=== PATIENT | male | born 1970 | race Hispanic/Latino ===

== ENCOUNTER 2018-04-29 14:23 | Emergency (ER) | payer BC, SELFPAY ==
--- OUTSIDE RECORDS SUMMARY | 2018-04-29 14:25 | XMS REPORT | Clinical Summary ---
:1970 Author Organization [facility] Address [address] [place] [address] Care Team Providers Name Role Phone Asked, No Pcp Primary Care Provider Unavailable Allergies Not on File Current Medications Not on file Active Problems Not on file Social History Tobacco Use Types Packs/Day Years Used Date Never Assessed Sex Assigned at Date Recorded Not on file Last Filed Vital Signs Not on file Plan of Treatment Not on file Results Not on fileafter 04/28/2017 Insurance Payer Benefit Plan / Group Subscriber ID Type Phone Address BCBS BCBS CHOICE PPO/FEDERAL EMPL PPO xxxxxxxxxxxx PPO Home: Geetha hughes [phone] [address]
--- NOTE | 2018-04-29 15:39 | ER ---
Nurse's Notes [facility] Name: Adalid Chaves Jr Age: 47 yrs Sex: Male : 1970 Arrival Date: 04/29/2018 Time: 14:26 Bed 24 Private MD: Kavin Elmore Diagnosis: Right Lower Tooth Pain Presentation: 04/29 14:57 Presenting complaint: Patient states: "I think I cracked a tooth yesterday". Pt c/o aa5 right lower molar. Transition of care: patient was not received from another setting of care. Onset of symptoms was April 2018. Risk Assessment: Do you want to hurt yourself or someone else? Patient reports no desire to harm self or others. Initial Sepsis Screen: Does the patient meet any 2 criteria? No. Patient's initial sepsis screen is negative. Does the patient have a suspected source of infection? No. Patient's initial sepsis screen is negative. Care prior to arrival: None. 14:57 Method Of Arrival: Ambulatory aa5 14:57 Acuity: YENNY 5 aa5 Triage Assessment: 16:12 EENT: Reports pain since tooth pain. tl3 Historical: - Allergies: 14:59 No Known Allergies; aa5 - PMHx: 14:59 Diabetes - IDDM; Hypertension; aa5 - PSHx: 14:59 None; aa5 - Immunization history:: Flu vaccine is up to date. - Social history:: Smoking status: Patient/guardian denies using tobacco. - Ebola Screening: : No symptoms or risks identified at this time. Screenin:32 Abuse screen: Denies threats or abuse. Nutritional screening: No deficits noted. tl3 Tuberculosis screening: No symptoms or risk factors identified. Fall Risk None identified. Assessment: 15:32 General: Appears distressed, uncomfortable, well groomed, well developed, well tl3 nourished, Behavior is calm, cooperative, appropriate for age. Pain: Complains of pain in lower right third molar. Neuro: Level of Consciousness is awake, alert, obeys commands, Oriented to person, place, time, situation, Appropriate for age. Cardiovascular: Patient's skin is warm and dry. Respiratory: Airway is patent. GI: No signs and/or symptoms were reported involving the gastrointestinal system. : No signs and/or symptoms were reported regarding the genitourinary system. EENT: No signs and/or symptoms were reported regarding the EENT system. Derm: No signs and/or symptoms reported regarding the dermatologic system. Musculoskeletal: No signs and/or symptoms reported regarding the musculoskeletal system. 16:10 Reassessment: No changes from previously documented assessment. Patient and/or family tl3 updated on plan of care and expected duration. Pain level reassessed. Patient is alert, oriented x 3, equal unlabored respirations, skin warm/dry/pink. discussed Rx cost with pt and provided info on [facility] for best pricing, pt not satisfied with medications prescribed. Vital Signs: 14:59 BP 137 / 82; Pulse 73; Resp 18 S; Temp 98.0(TE); Pulse Ox 97% on R/A; Weight 156.49 kg aa5 (R); Height 6 ft. 4 in. (193.04 cm) (R); Pain 9/10; 14:59 Body Mass Index 41.99 (156.49 kg, 193.04 cm) aa5 ED Course: 14:26 Patient arrived in ED. mr 14:26 Kavin Elmore MD is Private Physician. mr 14:58 Triage completed. aa5 14:58 Arm band placed on. aa5 15:14 Abraham Chaves PA is PHCP. cp 15:14 Jaswant Garcia MD is Attending Physician. cp 15:30 Jessy Sparrow, DIANA is Primary Nurse. tl3 15:32 Patient has correct armband on for positive identification. tl3 15:32 No provider procedures requiring assistance completed. Patient did not have IV access tl3 during this emergency room visit. 15:36 Christofer Gerard DDS is Referral Physician. cp Administered Medications: No medications were administered Outcome: 15:38 Discharge ordered by MD. cp 16:10 Discharged to home ambulatory. tl3 16:10 Condition: unchanged 16:10 Discharge instructions given to patient, Instructed on discharge instructions, follow up and referral plans. medication usage, following up with dentist Demonstrated understanding of instructions, follow-up care, medications, Prescriptions given X 3. 16:12 Patient left the ED. tl3 Signatures: MaurerBrigida pereira mr EspinalSima RN RN aa5 Abraham Chaves PA PA cp Jessy Sparrow, DIANA RN tl3
--- NOTE | 2018-04-29 15:39 | EDPHYS ---
Physician Documentation [facility] Name: Adalid Chaves Jr Age: 47 yrs Sex: Male : 1970 Arrival Date: 04/29/2018 Time: 14:26 Bed 24 Private MD: Kavin Elmore ED Physician Jaswant Garcia HPI: 04/29 15:27 This 47 yrs old Male presents to ER via Ambulatory with complaints of cp Toothache. 15:27 The patient presents with pain. The problem is located in the right lower jaw. Onset: cp The symptoms/episode began/occurred yesterday. Duration: The symptoms are continuous, and are steadily getting worse. Associated signs and symptoms: Pertinent positives: pain, Pertinent negatives: anorexia, dysphagia, fever, inability to eat, swelling, facial. Severity of symptoms: in the emergency department the symptoms are actually worse. Historical: - Allergies: 14:59 No Known Allergies; aa5 - PMHx: 14:59 Diabetes - IDDM; Hypertension; aa5 - PSHx: 14:59 None; aa5 - Immunization history:: Flu vaccine is up to date. - Social history:: Smoking status: Patient/guardian denies using tobacco. - Ebola Screening: : No symptoms or risks identified at this time. ROS: 15:32 Eyes: Negative for injury, pain, redness, and discharge. cp 15:32 Constitutional: Negative for body aches, chills, fever, poor PO intake. 15:32 ENT: Positive for dental pain, right lower jaw pain, Negative for sinus pain, difficulty swallowing, difficulty handling secretions, hoarseness. 15:32 Cardiovascular: Negative for chest pain, edema, palpitations. 15:32 Respiratory: Negative for cough, shortness of breath, wheezing. 15:32 Skin: Negative for cellulitis, rash. 15:32 All other systems are negative. Exam: 15:34 Head/Face: Normocephalic, atraumatic. cp 15:34 Constitutional: The patient appears in no acute distress, alert, awake, non-toxic, well developed, well nourished. 15:34 Eyes: Periorbital structures: appear normal, Conjunctiva: normal, no exudate, no injection, Sclera: no appreciated abnormality, Lids and lashes: appear normal, bilaterally. 15:34 ENT: External ear(s): are unremarkable, Ear canal(s): are normal, clear, TM's: bulging, is not appreciated, bilaterally, dullness, bilaterally, erythema, is not appreciated, bilaterally, Nose: is normal, Mouth: Lips: moist, Oral mucosa: pink and intact, moist, Gums: normal with healthy appearance, Tongue: is normal, abscess, is not appreciated, drooling, is not appreciated, Posterior pharynx: Airway: no evidence of obstruction, patent, Tonsils: are normal in appearance, Uvula: midline, swelling, is not appreciated, erythema, is not appreciated, exudate, is not appreciated, Dental exam: abscess, is not appreciated, dental caries, that is mild, diffusely, gum swelling, not appreciated, pain, that is moderate, specifically in the lower right second molar (#31). 15:34 Neck: ROM/movement: is normal, is supple, without pain, no range of motions limitations, no meningismus, no nuchal rigidity, Lymph nodes: no appreciated lymphadenopathy. 15:34 Chest/axilla: Inspection: normal, Palpation: is normal, no crepitus, no tenderness. 15:34 Cardiovascular: Rate: normal, Rhythm: regular. 15:34 Respiratory: the patient does not display signs of respiratory distress, Respirations: normal, no use of accessory muscles, no retractions, Breath sounds: are clear throughout, no decreased breath sounds, no stridor, no wheezing. 15:34 Skin: cellulitis, is not appreciated, no rash present. cp Vital Signs: 14:59 BP 137 / 82; Pulse 73; Resp 18 S; Temp 98.0(TE); Pulse Ox 97% on R/A; Weight 156.49 kg aa5 (R); Height 6 ft. 4 in. (193.04 cm) (R); Pain 9/10; 14:59 Body Mass Index 41.99 (156.49 kg, 193.04 cm) aa5 MDM: 15:15 Patient medically screened. cp 15:30 Differential diagnosis: dental caries, dental abscess, pericoronitis. cp 15:37 Data reviewed: vital signs, nurses notes, and as a result, I will discharge patient. cp 15:37 Counseling: I had a detailed discussion with the patient and/or guardian regarding: the cp historical points, exam findings, and any diagnostic results supporting the discharge/admit diagnosis, the need for outpatient follow up, for definitive care, a dentist, to return to the emergency department if symptoms worsen or persist or if there are any questions or concerns that arise at home. Administered Medications: No medications were administered Disposition: 16:33 Co-signature as Attending Physician, Jaswant Garcia MD. Disposition: 04/29/18 15:38 Discharged to Home. Impression: Right Lower Tooth Pain. - Condition is Stable. - Discharge Instructions: Dental Pain. - Prescriptions for Amoxicillin 875 mg Oral Tablet - take 1 tablet by ORAL route every 12 hours for 10 days; 20 tablet. Anaprox DS 550 mg Oral Tablet - take 1 tablet by ORAL route every 12 hours As needed; 20 tablet. Tramadol 50 mg Oral Tablet - take 1 tablet by ORAL route every 8 hours as needed; 12 tablet. - Medication Reconciliation Form, Thank You Letter, Antibiotic Education, Prescription Opioid Use form. - Follow up: Christoefr Gerard DDS; When: 2 - 3 days; Reason: right lower tooth pain. - Problem is new. - Symptoms have improved. Signatures: Sima Espinal RN RN aa5 Abraham Chaves PA PA Jaswant Hackett MD MD Jessy Sparrow RN RN tl3 Corrections: (The following items were deleted from the chart) 16:12 15:38 04/29/2018 15:38 Discharged to Home. Impression: Right Lower Tooth Pain. tl3 Condition is Stable. Forms are Medication Reconciliation Form, Thank You Letter, Antibiotic Education, Prescription Opioid Use. Follow up: Christofer Gerard; When: 2 - 3 days; Reason: right lower tooth pain. Problem is new. Symptoms have improved. cp
== END 2018-04-29 16:12 | disposition home or self-care (01) ==
LOC: ER 14:23
DX: K08.89 Other specified disorders of teeth and supporting structures (principal); K02.9 Dental caries, unspecified; E11.9 Type 2 diabetes mellitus without complications; I10 Essential (primary) hypertension; Z79.4 Long term (current) use of insulin
CPT/HCPCS: 99282

== ENCOUNTER 2019-05-08 09:41 | Inpatient (IN) | payer OTHER ==
--- OUTSIDE RECORDS SUMMARY | 2019-05-08 09:43 | XMS REPORT | Summary of Care ---
:1970 Author Organization [facility] Address [address] [place] [id number] Care Team Providers Name Role Phone Kavin Elmore Primary Care Provider Joy Garza MD Unavailable Unavailable Reason for Visit Reason Comments Refill Request Encounter Details Date Type Department Care Team Description 01/14/2019 Refill [facility]- Joy Garza MD Refill Request [facility] [address] [place] [phone] Allergies No Known Allergiesdocumented as of this encounter (statuses as of 01/15/2019) Medications Medication Sig Dispensed Refills Start Date End Date Status aspirin 81 mg EC Take 81 mg by 0 Active tablet mouth daily. Lancets (MICROLET Use as 200 Each 5 02/24/2016 Active LANCET) Misc directed, six times daily, DX:E11.9 Insulin [place], Use once daily 100 Each 3 02/28/2017 Active Disposable, (BD with VIctoza INSULIN PEN NEEDLE UF) 31 gauge x 5/16" NdleIndications: Type 2 diabetes, uncontrolled, with neuropathy blood sugar Use as 300 Strip 3 08/15/2017 Active diagnostic directed, 3 (CONTOUR NEXT times daily, STRIPS) DX:E11.9 stripIndications: Type 2 diabetes, uncontrolled, with neuropathy DUEXIS 800-26.6 mg 3 01/27/2018 Active per tablet lidocaine-prilocai APPLY 2 TO 3 12 12/22/2017 Active ne 2.5-2.5 % cream GRAMS TO THE AFFECTED AREA EVERY 12 HOURS UREA 40 TOPICAL Apply to 0 Active area(s). VICTOZA 3-LILA 0.6 INJECT 1.8 MG 27 mL 0 03/24/2018 Active mg/0.1 mL (18 mg/3 UNDER THE SKIN mL) DAILY injectionIndicatio ns: Type 2 diabetes, uncontrolled, with neuropathy pregabalin Take 1 capsule 270 capsule 0 11/09/2018 Active (LYRICA) 75 mg by mouth 3 capsuleIndications (three) times : Neuropathy daily. lisinopril-hydroch Take 1 tablet 180 tablet 0 11/09/2018 Active lorothiazide by mouth 2 20-12.5 mg per (two) times tabletIndications: daily. Essential hypertension metoprolol Take 1 tablet 90 tablet 0 11/09/2018 Active tartrate 25 mg by mouth tabletIndications: daily. Essential hypertension simvastatin 20 mg Take 1 tablet 90 tablet 0 11/09/2018 Active tabletIndications: by mouth at Dyslipidemia bedtime. Insulin Use three 300 Syringe 1 11/09/2018 Active Syringe-Needle daily with U-100 (INSULIN U-500 insulin SYRINGE) 1 mL 30 vial gauge x 5/16 SyrgIndications: Type 2 diabetes, uncontrolled, with neuropathy pioglitazone 45 mg Take 1 tablet 90 tablet 0 11/09/2018 Active tabletIndications: by mouth Type 2 diabetes, daily. uncontrolled, with neuropathy insulin regular 20 units at 50 mL 5 11/15/2018 Active human (HUMULIN R) breakfast,15-2 500 unit/mL 0 units at injectionIndicatio lunch,10-15 ns: Type 2 units before diabetes, dinner, Max uncontrolled, with daily dose 55 neuropathy units METFORMIN 1,000 mg TAKE 1 TABLET 180 tablet 0 01/15/2019 Active tabletIndications: TWICE DAILY Type 2 diabetes, WITH MEALS uncontrolled, with neuropathy metFORMIN 1,000 mg Take 1 tablet 180 tablet 0 11/09/2018 Discontinued tabletIndications: by mouth 2 9 Type 2 diabetes, (two) times uncontrolled, with daily with neuropathy meals. 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 documented as of this encounter Last Filed Vital Signs Not on filedocumented in this encounter Plan of Treatment Date Type Specialty Care Team Description 02/28/2019 Office Visit Endocrinology Diabetes & Rodriguez, MD [facility] [address] [place] [address] [phone] Health Maintenance Due Date Last Done Comments PNEUMOCOCCAL 0-64 YEARS COMBINED 1975 SERIES (1 of 1 - PPSV23) CREATININE (SERUM) 1979 EYE EXAM 1979 LDL-C 1979 URINE MICROALBUMIN 1979 DTaP,Tdap,and Td Vaccines (1 - 1988 Tdap) INFLUENZA VACCINE 02/18/2019 HgA1C 05/11/2019 11/08/2018, 02/15/2018, 11/09/2017, Additional history exists FOOT EXAM 11/09/2019 11/08/2018, 11/08/2018, 02/15/2018, Additional history exists documented as of this encounter Results Not on filedocumented in this encounter Visit Diagnoses Diagnosis Type 2 diabetes, uncontrolled, with neuropathy Type II or unspecified type diabetes mellitus with neurological manifestations, uncontrolled documented in this encounter Insurance Payer Benefit Plan / Subscriber ID Effective Dates Phone Address Type Group [facility] [id number] 2018-Prese HMO/PPO/[facility] PPO nt S documented as of this encounter
--- OUTSIDE RECORDS SUMMARY | 2019-05-08 09:43 | XMS REPORT ---
:1970 Author Organization [facility] Address [address] [place] [address] Dr. Serrano [address] [place] [address] Care Team Providers Name Role Phone Unavailable Unavailable Unavailable Problems This patient has no known problems. Allergies, Adverse Reactions, Alerts This patient has no known allergies or adverse reactions. Medications This patient has no known medications.
--- OUTSIDE RECORDS SUMMARY | 2019-05-08 09:44 | XMS REPORT | Summary of Care ---
:1970 Author Organization [facility] Address [address] [place] [address] Care Team Providers Name Role Phone Kavin Elmore Primary Care Provider Joy Garza MD Unavailable Unavailable Reason for Visit Reason Comments Follow-up Diabetes Mellitus II Encounter Details Date Type Department Care Team Description 02/28/2019 Office Visit [facility] Jonah Rodriguez MD Type 2 diabetes, uncontrolled, with neuropathy (Primary Dx); Endocrinology- [facility] Essential hypertension; [facility] Dyslipidemia; Professional Office [place], [place] Neuropathy Building [address] [place] [address] [address] [place] [address] Allergies No Known Allergiesdocumented as of this encounter (statuses as of 02/28/2019) Medications Medication Sig Dispensed Refills Start Date End Date Status aspirin 81 mg EC Take 81 mg by 0 Active tablet mouth daily. Lancets (MICROLET Use as 200 Each 5 02/24/2016 Active LANCET) Misc directed, six times daily, DX:E11.9 Insulin [place], Use once daily 100 Each 3 02/28/2017 [...] 3 capsuleIndications (three) times : Neuropathy daily. simvastatin 20 mg Take 1 tablet 90 tablet 0 11/09/2018 Active tabletIndications: by mouth at Dyslipidemia bedtime. pioglitazone 45 mg Take 1 tablet 90 tablet 0 11/09/2018 Active tabletIndications: by mouth Type 2 diabetes, daily. uncontrolled, with neuropathy insulin regular 20 units at 50 mL 5 11/15/2018 Active human (HUMULIN R) breakfast,15-2 500 unit/mL 0 units at injectionIndicatio lunch,10-15 ns: Type 2 units before diabetes, dinner, Max uncontrolled, with daily dose 55 neuropathy units metFORMIN 1,000 mg TAKE 1 TABLET 180 tablet 1 02/28/2019 Active tabletIndications: TWICE DAILY Type 2 diabetes, WITH MEALS uncontrolled, with neuropathy metoprolol Take 1 tablet 90 tablet 1 02/28/2019 Active tartrate 25 mg by mouth tabletIndications: daily. Essential hypertension lisinopril-hydroch Take 1 tablet 180 tablet 1 02/28/2019 Active lorothiazide by mouth 2 20-12.5 mg per (two) times tabletIndications: daily. Essential hypertension insulin U-500 1 Each 3 300 Syringe 1 02/28/2019 Active syringe-needle 1/2 (three) times mL 31 gauge x daily before 15/64" meals. SyrgIndications: Type 2 diabetes, uncontrolled, with neuropathy lisinopril-hydroch Take 1 tablet 180 tablet 0 11/09/2018 Discontinued lorothiazide by mouth 2 9 20-12.5 mg per (two) times tabletIndications: daily. Essential hypertension metoprolol Take 1 tablet 90 tablet 0 11/09/2018 Discontinued tartrate 25 mg by mouth 9 tabletIndications: daily. Essential hypertension Insulin Use three 300 Syringe 1 11/09/2018 Discontinued Syringe-Needle daily with 9 U-100 (INSULIN U-500 insulin SYRINGE) 1 mL 30 vial gauge x 11/02 SyrgIndications: Type 2 diabetes, uncontrolled, with neuropathy METFORMIN 1,000 mg TAKE 1 TABLET 180 tablet 0 01/15/2019 Discontinued tabletIndications: TWICE DAILY 9 Type 2 diabetes, WITH MEALS uncontrolled, with neuropathy documented as of this encounter (statuses as of 02/28/2019) Active Problems Problem Noted Date Morbid obesity, unspecified obesity type 11/22/2016 Cushingoid facies 09/16/2016 Dyslipidemia 05/25/2016 Neuropathy 05/25/2016 Type 2 diabetes, uncontrolled, with neuropathy 02/24/2016 Essential hypertension 02/24/2016 HLD (hyperlipidemia) 02/24/2016 documented as of this encounter (statuses as of 02/28/2019) Social History Tobacco Use Types Packs/Day Years [...] of this encounter Last Filed Vital Signs Vital Sign Reading Time Taken Comments Blood Pressure 122/77 02/28/2019 4:48 PM CDT Pulse 85 02/28/2019 4:48 PM CDT Temperature - - Respiratory Rate 16 02/28/2019 4:48 PM CDT Oxygen Saturation - - Inhaled Oxygen Concentration - - Weight 165.2 kg (364 lb 3.2 oz) 02/28/2019 4:48 PM CDT Height 193 cm (6' 4") 02/28/2019 4:48 PM CDT Body Mass Index 44.33 02/28/2019 4:48 PM CDT documented in this encounter Patient Instructions Patient InstructionsJonah Rodriguez MD - 02/28/2019 4:30 PM CDTChange U500 injection with U500 syringe Take 100-120 units with breakfast , 40-60 with lunch and 80-100 units with dinner Continue metformin and victoza and actos documented in this encounter Progress Notes Jonah Rodriguez MD - 02/28/2019 4:30 PM CDT chief complaint: Type 2 diabetes mellitus, HTN, dyslipidemia, obesity- follow up HPI Patient is a 48 year old /White male who is here today for Diabetes Mellitus Type 2. Patient's diabetes is complicated by atherogenic diet, diabetic ulcer/wound, hyperlipidemia, hypertension , neuropathy: Peripheral and lower extremity, obesity and retinopathy: proliferative. Diagnosed at age 25 years and A1C has been not well controlled at 7-9 range. SIOMARA was in 10/2018 with A1C worsened from 7.5 to 8.7 ( Patient lost his job and was off medications for about a month, restarted some of the medicines recently) . He was advised to hold off Jardiance and increase Actos dose due to new issue with foot ulcer Patient reports glucose has been trending higher despite he has to increase U500 to 10-25 units TIDAC ( using regular syringe ). He checks glucose 1-2 times a day. 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 Exercise: active but does not exercise Regained 20lbs after stopping Jardiance Morbid obesity: Weight > 300 Lb since age 17 1 mg DST normal, IGF-1 normal Current medications:Stopped Phentermine 37.5 mg and Topiramate 25 mg due to cost HTN: Managed by cardiology, Dr Colon.Takes Toprol 25 mg bid and Lisinopril-HCTZ 20-12.5 mg BID ( requesting refills) Dyslipidemia: Takes Zocor 20 mg Neuropathy, Gabapentin and duloxetine are inaffective in relieving symptoms. Lyrica 75 mg tid is affective. DIABETIC HEALTH MAINTENANCE Last Ophthalmology visit was 11/2017, + severe retinopathy bilateral. Patient on YANCI/ARB therapy - Yes Patient on ASA therapy - Yes. Patient on Statin/Fibrate therapy - Yes. Patient instructed about daily feet exams, last sensation exam was 02/28/2019 Patient has received Nutrition/Diet/Diabetes Education on 02/2016. HISTORY Past Medical History: Diagnosis Date DM2 (diabetes mellitus, type 2) HLD (hyperlipidemia) HTN (hypertension) Neuropathy Past Surgical History: Procedure Laterality Date MS ANESTH,KNEE AREA SURGERY Family History Problem Relation Age of Onset Diabetes Mother Diabetes Father Social History Socioeconomic History Marital status: Spouse name: Not on file Number of children: Not on file Years of education: Not on file Highest education level: Not on file Occupational History Not on file Social Needs Financial resource strain: Not on file Food insecurity: Worry: Not on file Inability: Not on file Transportation needs: Medical: Not on file Non-medical: Not on file Tobacco Use Smoking status: Never Smoker Substance and Sexual Activity Alcohol use: Not on file Drug use: Not on file Sexual activity: Not on file Lifestyle Physical activity: Days per week: Not on file Minutes per session: Not on file Stress: Not on file Relationships Social connections: Talks on phone: Not on file Gets together: Not on file Attends methodist service: Not on file Active member of club or organization: Not on file Attends meetings of clubs or organizations: Not on file Relationship status: Not on file Intimate partner violence: Fear of current or ex partner: Not on file Emotionally abused: Not on file Physically abused: Not on file Forced sexual activity: Not on file Other Topics Concern Not on file Social History Narrative Not on file REVIEW OF SYSTEMS Constitutional: +weight gain, denies fatigue and hair loss Eyes: denies blurry vision, denies diplopia and denies pain. Neck: denies pain, denies swollen glands Cardiovascular: denies chest pain , denies irregular pulse and denies palpitations. Respiratory: denies dyspnea on exertion and denies shortness of breath. Gastrointestinal: denies abdominal pain, denies constipation and denies diarrhea. Genitourinary: denies burning and denies dysuria. Musculoskeletal: denies back pain, denies muscle pain and denies weakness. Skin: +cellulitis on left great toe Neuro: denies numbness , denies tingling and denies tremor. Psych: negative. Endocrine: denies goiter, denies hair loss, denies intolerance to cold, denies intolerance to heat, denies polydipsia, denies polyphagia and denies polyuria. PHYSICAL EXAM POCT HBA1C (%) Date Value 02/28/2019 8.1 11/08/2018 8.7 (A) BP 122/77 (BP Location: Left arm, Patient Position: Sitting, BP CUFF SIZE: Adult Large) | Pulse 85| Resp 16 | Ht 6' 4" (1.93 m) | Wt 364 lb 3.2 oz ( 165.2 kg) | BMI 44.33 kg/m . General: alert, oriented times three, no apparent distress, appearing age appropriate. Skin: + cushingoid features, Boaz torso Head: normocephalic, no masses, lesions, tenderness or abnormalities. Eyes: anicteric sclera, pupils are equally round and reactive to light. Neck: +acanthosis nigricans Thyroid: normal size and consistency to palaption Lungs: good diaphragmatic excursion, lungs clear to auscultation bilaterally. Heart: regular rate and rhythm, no murmurs, gallops or rubs. Abdomen: abdomen soft, non-tender, normal active bowel sounds, + obese. Neuro: unremarkable without focal findings. Extremities/Musculoskeletal: no cyanosis, no edema . . Feet: cellulitis on left big toe Sensory exam of the foot is abnormal. Monofilament exam with sensation Right: 4/ 5, Left: 4/5. Mycotic toenail Lesions present Ulcers Present Left Foot Peripheral pulses present 2+. Patient states lab was done in 09/2018 in outside facility. He will fax records ASSESSMENT Type 2 diabetes, uncontrolled, with neuropathy (primary encounter diagnosis) Comment: Patient just restarted Metformin, Victoza and Actos Discussed recent reports of increased amputation with S Plan: 1. Type 2 diabetes, uncontrolled, with neuropathy -A1C (target=6-7%): 8.7 (11/05)-->8.199/19) improved from previous -glucose range:huge fluctuation -frequent Hypoglycemia in early AM -complication: neuropathy retinopathy -medication limitation: GLT2 Inhibitors as patient with active/hx toe infections ( healing) -diet: semicompliant -exercise: limited by foot pain Plan -reinterated to check glucose TID alternating fasting and 2 hours post meals -urged compliance with diet/exercise - POCT HEMOGLOBIN A1C TEST - metFORMIN 1,000 mg tablet; TAKE 1 TABLET TWICE DAILY WITH MEALS Dispense: 180 tablet; Refill: 1 - insulin U-500 syringe-needle 1/2 mL 31 gauge x 15/64" Syrg; 1 Each 3 (three) times daily before meals. Dispense: 300 Syringe; Refill: 1 Patient Instructions Change U500 injection with U500 syringe Take 100-120 units with breakfast , 40-60 with lunch and 80-100 units with dinner Continue metformin and victoza and actos 2. Essential hypertension BP was mildly elevate din clinic Plan - metoprolol tartrate 25 mg tablet; Take 1 tablet by mouth daily. Dispense: 90 tablet; Refill: 1 - lisinopril-hydrochlorothiazide 20-12.5 mg per tablet; Take 1 tablet by mouth 2 (two) times daily.Dispense: 180 tablet; Refill: 1 3. Dyslipidemia Comment: at goal in 09/2018 per patient Plan: simvastatin 20 mg tablet 4. Neuropathy Comment: Controlled Plan: pregabalin (LYRICA) 75 mg capsule documented in this encounter Plan of Treatment Health Maintenance Due Date Last Done Comments PNEUMOCOCCAL 0-64 YEARS COMBINED 1975 SERIES (1 of - PPSV23) CREATININE (SERUM) 1979 EYE EXAM 1979 LDL-C 1979 URINE MICROALBUMIN 1979 DTaP,Tdap,and Td Vaccines (1 - 1988 Tdap) INFLUENZA VACCINE (#1) 2019 HgA1C 05/11/2019 11/08/2018, 02/15/2018, 11/09/2017, Additional history exists FOOT EXAM 11/09/2019 11/08/2018, 11/08/2018, 02/15/2018, Additional history exists documented as of this encounter Procedures Procedure Name Priority Date/Time Associated Diagnosis Comments POCT HEMOGLOBIN A1C Routine 02/28/2019 Type 2 diabetes, Results for this TEST uncontrolled, with procedure are in the neuropathy results section. documented in this encounter Results POCT HEMOGLOBIN A1C TEST (02/28/2019) POCT HBA1C 8.1 4 - 6 % Specimen Blood - CAPILLARY documented in this encounter Visit Diagnoses Diagnosis Type 2 diabetes, uncontrolled, with neuropathy - Primary Type II or unspecified type diabetes mellitus with neurological manifestations, uncontrolled Essential hypertension Unspecified essential hypertension Dyslipidemia Other and unspecified hyperlipidemia Neuropathy Mononeuritis of unspecified site documented in this encounter Insurance Payer Benefit Plan / Subscriber ID Effective Dates Phone Address Type Group [facility] [id number] 2018-[place] HMO/PPO/[facility] PPO nt S documented as of this encounter
--- OUTSIDE RECORDS SUMMARY | 2019-05-08 09:44 | XMS REPORT | Summary of Care ---
:1970 Author Organization [facility] Address [address] [place] [address] Care Team Providers Name Role Phone Kavin Elmore Primary Care Provider Joy Garza MD Unavailable Unavailable Reason for Visit Reason Comments Refill Request Encounter Details Date Type Department Care Team Description 01/15/[address] [facility] Endocrinology- Jonah Rodriguez MD Refill Request [address] Professional Office [address] [phone] [place] [address] [address] [place] [address] Allergies No Known Allergiesdocumented as of this encounter (statuses as of 01/15/2019) Medications Medication Sig Dispensed Refills Start Date End Date Status aspirin 81 mg EC Take 81 mg by 0 Active tablet mouth daily. Lancets (MICROLET Use as directed, 200 Each 5 02/24/2016 Active LANCET) Misc six times daily, DX:E11.9 Insulin [place], Use once daily 100 Each 3 02/28/2017 Active Disposable, (BD with VIctoza INSULIN PEN NEEDLE UF) 31 gauge x 5/16" NdleIndications: Type 2 diabetes, uncontrolled, with neuropathy blood sugar Use as directed, 300 Strip 3 08/15/2017 Active diagnostic (CONTOUR 3 times daily, NEXT STRIPS) DX:E11.9 stripIndications: Type 2 diabetes, uncontrolled, with neuropathy DUEXIS 800-26.6 mg 3 01/27/2018 Active per tablet lidocaine-prilocaine APPLY 2 TO 3 12 12/22/2017 Active 2.5-2.5 % cream GRAMS TO THE AFFECTED AREA EVERY 12 HOURS UREA 40 TOPICAL Apply to 0 Active area(s). VICTOZA 3-LILA 0.6 INJECT 1.8 MG 27 mL 0 03/24/2018 Active mg/0.1 mL (18 mg/3 UNDER THE SKIN mL) DAILY injectionIndications: Type 2 diabetes, uncontrolled, with neuropathy pregabalin (LYRICA) Take 1 capsule by 270 capsule 0 11/09/2018 Active 75 mg mouth 3 (three) capsuleIndications: times daily. Neuropathy lisinopril-hydrochlor Take 1 tablet by 180 tablet 0 11/09/2018 Active othiazide 20-12.5 mg mouth 2 (two) per times daily. tabletIndications: Essential hypertension metoprolol tartrate Take 1 tablet by 90 tablet 0 11/09/2018 Active 25 mg mouth daily. tabletIndications: Essential hypertension simvastatin 20 mg Take 1 tablet by 90 tablet 0 11/09/2018 Active tabletIndications: mouth at bedtime. Dyslipidemia Insulin Use three daily 300 Syringe 1 11/09/2018 Active Syringe-Needle U-100 with U-500 (INSULIN SYRINGE) 1 insulin vial mL 30 gauge x 11/02 SyrgIndications: Type 2 diabetes, uncontrolled, with neuropathy pioglitazone 45 mg Take 1 tablet by 90 tablet 0 11/09/2018 Active tabletIndications: mouth daily. Type 2 diabetes, uncontrolled, with neuropathy insulin regular human 20 units at 50 mL 5 11/15/2018 Active (HUMULIN R) 500 breakfast,15-20 unit/mL units at injectionIndications: lunch,10-15 units Type 2 diabetes, before dinner, uncontrolled, with Max daily dose 55 neuropathy units METFORMIN 1,000 mg TAKE 1 TABLET 180 tablet 0 01/15/2019 Active tabletIndications: TWICE DAILY WITH Type 2 diabetes, MEALS uncontrolled, with neuropathy documented as of [...] Description 02/28/2019 Office Visit Endocrinology Diabetes & RodriguezJonah MD Metabolism [address] [place], [place] [address] Health Maintenance Due Date Last Done Comments [...] Results Not on filedocumented in this encounter Insurance Payer Benefit Plan / Subscriber ID Effective Dates Phone Address Type Group [facility] [id number] 2018-Prese HMO/PPO/[facility] PPO nt S documented as of this encounter
--- OUTSIDE RECORDS SUMMARY | 2019-05-08 09:44 | XMS REPORT | Summary of Care ---
:1970 Author Organization [facility] Address [address] [place] [address] Care Team Providers Name Role Phone Kavin Elmore Primary Care Provider Joy Garza MD Unavailable Unavailable Encounter Details Date Type Department Care Team Description 02/28/2019 Orders Only [facility] Doctor Unassigned, No [address] [facility] Name [place] [id number] [address] [place] [id number] Allergies No Known Allergiesdocumented as of this encounter (statuses as of 02/28/2019) Medications Medication Sig Dispensed Refills Start Date End Date Status aspirin 81 mg EC Take 81 mg by 0 Active tablet mouth daily. Lancets (MICROLET Use as directed, 200 Each 5 02/24/2016 Active LANCET) Misc six times daily, DX:E11.9 Insulin [place], Use once daily 100 Each 3 02/28/2017 [...] 1 insulin vial mL 30 gauge x 5/16 SyrgIndications: Type 2 diabetes, [...] Endocrinology Diabetes & RodriguezJonah MD Metabolism [address] [place] [address] [phone] Health Maintenance Due Date Last Done Comments [...] Procedure Name Priority Date/Time Associated Diagnosis Comments NO SHOW OR MISSED Routine 02/28/2019 4:18 PM APPOINTMENT POLICY CDT ACKNOWLEDGEMENT documented in this encounter Results Not on filedocumented in this encounter Insurance Payer Benefit Plan / Subscriber ID Effective Dates Phone Address Type Group [facility] [id number] 2018-Prese HMO/PPO/[facility] PPO nt S documented as of this encounter
[2019-05-08] MEDS ORDERED: ONDANSETRON 4 MG/2 ML VIAL IV PRN (10:01)
[2019-05-08] MEDS ORDERED: ACETAMINOPHEN 500 MG TAB PO PRN (10:01)
--- NOTE | 2019-05-08 10:08 | P.HP ---
Certification for Inpatient Patient admitted to: Inpatient With expected LOS: >2 Midnights Patient will require the following post-hospital care: None Practitioner: I am a practitioner with admitting privileges, knowledge of patient current condition, hospital course, and medical plan of care. Services: Services provided to patient in accordance with Admission requirements found in Title 42 Section 412.3 of the Code of Federal Regulations Patient History Date of Service: 05/08/19 Reason for admission: Left big toe cellulitis History of Present Illness: 48-year-old male with past medical history of diabetes mellitus, hypertension, diabetic neuropathy, GERD sent from Dr Edwards`s office where he presented with swelling , pain of left big toe and fever for the last few days. Started few days back and has been progressively worsening hence was presented to Dr Edwards . He was assessed and was admitted for further management in view of possible osteomyelitis, patient has subjective fevers with associated chills. Denies any chest pain or shortness of breath No fever no chills Pain in the left big toe present Allergies bee venom protein (honey bee) Allergy (Verified 05/08/19 10:12) Anaphylaxis Home medications list reviewed: Yes Home Medications: Amox/Clavulanate [Augmentin 400 mg Tab*] 11/08/18 Insulin Regular, Human [Humulin R U-500 Kwikpen] 10 units SQ TID 11/08/18 Liraglutide [Victoza 2-Lopez] 1.8 unit SQ DAILY 11/08/18 Lisinopril/Hydrochlorothiazide [Lisinopril-Hctz 20-12.5 mg Tab] 25 mg PO BID Metformin ER [Glucophage ER*] 1,000 mg PO BID 11/08/18 Metoprolol Tartrate [Lopressor] 1 tab PO DAILY 11/08/18 Pregabalin [Lyrica*] 75 mg PO BID 11/08/18 Simvastatin 20 mg PO DAILY 11/08/18 - Past Medical/Surgical History Has patient received pneumonia vaccine in the past: Yes Diabetic: Yes Past Medical History: Reviewed- Non-Contributory -: diabetes -: htn -: hyperlipidemia Past Surgical History: Reviewed- Non-Contributory -: L knee surgery -: bilateral toe bunion removal - Family History Family History: Reviewed- Non-Contributory - Social History Smoking Status: Never smoker Alcohol use: Yes Review of Systems 10-point ROS is otherwise unremarkable General: Unremarkable ENT: Unremarkable Respiratory: Unremarkable Cardiovascular: Unremarkable Gastrointestinal: Unremarkable Physical Examination - Vital Signs Temperature: 99.6 F Blood Pressure: 146/88 Pulse: 86 Respirations: 18 - Physical Exam General: Alert, Oriented x3, Obese HEENT: Atraumatic, Normocephalic Neck: Supple, 2+ carotid pulse no bruit Respiratory: Clear to auscultation bilaterally, Normal air movement Cardiovascular: Normal pulses, Regular rate/rhythm Capillary refill: <2 Seconds Gastrointestinal: Soft and benign, Non-distended, W/out hepatosplenomegaly Musculoskeletal: No clubbing, Swelling, Erythema, Tenderness, Other (Tenderness and swelling left big toe) Integumentary: Tenderness/swelling, Erythema Neurological: Normal speech, Normal strength at 5/5 x4 extr Lymphatics: No axilla or inguinal lymphadenopathy Urinary: Other (No bladder distention) External genitalia: Deferred Rectal: Deferred Assessment and Plan - Problems (Diagnosis) (1) Ulcer of left great toe due to diabetes mellitus Current Visit: No Status: Acute Plan: Monitor under telemetry Start on IV antibiotics Pain medications Blood and wound cultures Surgery consult Will get an MRI of the foot about osteomyelitis Will get a CRP (2) Diabetes Current Visit: No Status: Acute Plan: Continue home medications and titrate as needed Start on insulin sliding scale Will get an A1c (3) Hyperlipidemia Current Visit: No Status: Chronic Plan: Continue home medications and titrate as needed (4) Hypertension Current Visit: No Status: Chronic Plan: Continue home medications and titrate as needed Hydralazine p.r.n. (5) Morbid obesity with BMI of 40.0-44.9, adult Current Visit: No Status: Chronic Plan: Advised lifestyle modification (6) Neuropathy Current Visit: No Status: Chronic Plan: Continue home medications and titrate as needed Discharge Plan: Home Plan to discharge in: 48 Hours - Advance Directives Does patient have a Living Will: No Does patient have a Durable POA for Healthcare: No Time Spent Managing Pts Care (In Minutes): 48
[2019-05-08 10:13] VITALS: BMI 43.0
[2019-05-08 10:30] LABS: Absolute Lymphocytes (CBC) 1.8 K/uL (0.7-4.9); Basophils % 0.6 % (0-1.3); Hematocrit 33.6 % (39.6-49.0); Lymphocytes % 24.8 % (15.3-44.8); MPV 7.9 fL (7.6-11.3); RBC Red Blood Cell Count 4.02 M/uL (4.33-5.43)
[2019-05-08 10:34] LABS: Protime INR 1.08
[2019-05-08 10:50] LABS: ALT/SGPT 32 U/L (12-78); AST/SGOT 27 U/L (15-37); Albumin 2.9 g/dL (3.4-5.0); Alkaline Phosphatase 81 U/L (45-117); BUN Blood Urea Nitrogen 19 mg/dL (7-18); Bicarbonate 30 mmol/L (21-32); Bilirubin Total 0.4 mg/dL (0.2-1.0); Glucose Level 165 mg/dL (74-106); Phosphorus 2.4 mg/dL (2.5-4.9); Potassium 4.3 mmol/L (3.5-5.1); Protein, Total 7.1 g/dL (6.4-8.2); Sodium Level 139 mmol/L (136-145)
[2019-05-08] MEDS: POTASS/SODIUM PHOSPHATE 1 PKT POWD.PACK PO SCH ×3 (11:00→13:00)
[2019-05-08] MEDS: VANCOMYCIN 2 GM in NA CHLORIDE 0.9% 500 ML IVPB SCH ×2 (11:00→23:03)
[2019-05-08] MEDS: NA CHLORIDE 0.9% 1,000 ML IV SCH ×2 (11:00→21:00)
[2019-05-08] MEDS: CEFEPIME/SWI 1gm 10 ML IV SCH ×2 (11:47→21:34)
[2019-05-08 11:57] LABS: Urine Appearance CLEAR; Urine Blood NEGATIVE (NEG); Urine Color YELLOW; Urine Glucose NEGATIVE (NEG); Urine Specific Gravity 1.025 (1.005-1.030)
[2019-05-08 11:58] LABS: Urine Bacteria 20-50 /HPF (NONE SEEN); Urine Culture Reflex Order REFLEXED; Urine Mucus HEAVY /HPF (NONE SEEN); Urine Protein 3+ (NEG); Urine RBC <5 /HPF (NONE SEEN); Urine Urobilinogen 0.2 mg/dL (0.2-1.0)
[2019-05-08] MEDS: INSULIN -REGULAR HUMAN 50 UNIT/0.5 ML ML SQ SCH ×6 (11:58→21:36)
[2019-05-08 13:00] LABS: Urine Bilirubin 3+/R (NEG)
--- NOTE | 2019-05-08 14:06 | RAD REPORT ---
EXAM DESCRIPTION: US - Lower Extremity Artery [facility] - 05/08/2019 1:46 pm CLINICAL HISTORY: left foot cellulitis,r/o osteo COMPARISON: No comparisons FINDINGS: Left lower extremity arterial Doppler was performed. Triphasic waveforms are seen througho ut the left lower extremity arterial system. No evidence of significant stenosis or occlusion. IMPRESSION: No flow abnormality of the left lower extremity arterial system seen.
[2019-05-08] MEDS ORDERED: GLUCAGON 1 MG/VIAL IM PRN (15:45)
[2019-05-08] MEDS ORDERED: D50W 25 GM/50 ML SYRINGE/VIAL IV PRN (15:45)
[2019-05-08] MEDS ORDERED: SILVER SULFADIAZINE 1% 25 GM TOP SCH (16:00)
--- NOTE | 2019-05-08 16:20 | CON ---
Date of Consultation: 05/08/2019 Reason For Consultation: Infected wound, left great toe. History Of Present Illness: The patient is a 48-year-old gentleman with multiple medical problems, p resented to my office with fever, increasing pain, redness and swelling in the left great toe. I hav e been managing an ulcer on the bottom of the toe and he had called the office last week stating that he thought it was getting infected. I restarted him on Augmentin and told him to come see me ____ he was evaluated and he states that over the last 4 days, he has had increasing fever subjective ly and no purulent discharge. Feeling a little weak. Sugar has been a little high. I evaluated him in my office, debrided the wound edges. There was no purulence present. There was an ulcer present on the plantar aspect of the left great toe. It was red, it was warm, therefore as he failed outpat ient therapy on oral antibiotics, advised him to be admitted to the hospitalist and he was started on antibiotics and I have been consulted and workup was begun. Review of Systems: Otherwise unremarkable. No sore throat, runny nose, cough, headaches, or dizziness. No chest pain. Past Medical History: Significant for diabetes, hypertension, hyperlipidemia. Past Surgical History: Left knee surgery. Bilateral toe bunion removal. Allergies: BEE VENOM. Social History: Patient does not smoke. Drinks occasionally. Family History: Noncontributory. Physical Examination: Vital Signs: Stable. Blood pressure is 146/88, his temperature is 99.6. General: He is awake, alert, and oriented x3. Head and Neck: Cranial nerves 2 through 12 are grossly within normal limits. No neck masses. No JV D. Throat clear. Neck is supple. Chest: Clear. Heart: S1, S2. Abdomen: Soft. Extremities: Diminished dorsalis pedis and posterior tibial pulses. Left great toe is red, swollen, warm, indurated. No fluctuance anywhere. There is ulcer of approximately 2 cm on the plantar aspec t of the distal phalanx with good granulation tissue. Laboratory Data: White count is 7.1, H and H 11.3 and 33.6. Chemistry reviewed; BUN is 19, creatini ne is . Lactic acid is 1.3. Glucose is 165. MRI of the left great toe and arterial Doppl ers are pending. Assessment: A 48-year-old gentleman with multiple medical problems with left toe infected wound with cellulitis, rule out osteomyelitis. He has peripheral vascular disease and diabetes. Recommendation: We will await the results of the MRI and arterial Doppler and make further recommend ations. At this time, patient needs to be on IV antibiotics. He is on vancomycin and cefepime, whic h should be adequate. There is nothing really to culture at this point. We will see how he responds to these antibiotics and make further recommendations. We will follow this patient while in the [facility]. He can follow up with me in the wound healing center upon discharge. ORAL/MODL Voice ID: [id number] Report ID: [id number]
[2019-05-08] MEDS ORDERED: INSULIN REGULAR HUMAN 10 UNIT SQ SCH (16:30)
[2019-05-08] MEDS: HEPARIN 5000 UNIT/ML 1 ML VIAL SQ SCH (16:57)
[2019-05-08] MEDS: lisinopriL 20 MG TAB PO SCH (16:57)
[2019-05-08] MEDS: METOPROLOL TAR 25 MG TAB PO SCH (16:58)
[2019-05-08] MEDS ORDERED: HOME MED 1 EA UNK (Lisinopril/Hydrochlorothiazide [Lisinopril-Hctz 20-12.5 Mg Tab] 1 TAB) PO SCH (21:00)
[2019-05-08] MEDS ORDERED: HOME MED 1 EA UNK (Simvastatin [Simvastatin] 20 MG) PO SCH (21:00)
[2019-05-08] MEDS ORDERED: VANCOMYCIN 1.25 GM in NA CHLORIDE 0.9% 250 ML IVPB SCH (21:00)
[2019-05-08] MEDS ORDERED: CEFEPIME 1 GM/VIAL IV SCH (21:00)
[2019-05-08] MEDS: ATORVASTATIN 10 MG TAB PO SCH (21:34)
[2019-05-08] MEDS: PREGABALIN 75 MG CAP PO SCH (21:35)
[2019-05-08] MEDS: MORPHINE 2 MG/ML SYR IV PRN (21:36)
[2019-05-08] MEDS: HYDROCODONE/APAP 10/325 TAB PO PRN (23:12)
[2019-05-09] MEDS: HEPARIN 5000 UNIT/ML 1 ML VIAL SQ SCH ×3 (01:31→17:14)
[2019-05-09] MEDS: MORPHINE 2 MG/ML SYR IV PRN (01:43)
[2019-05-09 04:43] LABS: Basophils % 0.6 % (0-1.3); Hematocrit 32.6 % (39.6-49.0); Lymphocytes % 29.3 % (15.3-44.8); MPV 8.6 fL (7.6-11.3); RBC Red Blood Cell Count 3.87 M/uL (4.33-5.43)
[2019-05-09 04:54] LABS: BUN Blood Urea Nitrogen 14 mg/dL (7-18); Bicarbonate 30 mmol/L (21-32); Glucose Level 193 mg/dL (74-106); HDL Cholesterol 36 mg/dL (40-60); LDL Cholesterol, Calculated 78 (<130); Phosphorus 2.9 mg/dL (2.5-4.9); Potassium 4.1 mmol/L (3.5-5.1); Sodium Level 139 mmol/L (136-145)
[2019-05-09] MEDS: NA CHLORIDE 0.9% 1,000 ML IV SCH ×3 (07:00→18:26)
[2019-05-09] MEDS ORDERED: GLUCAGON 1 MG/VIAL IM PRN ×3 (09:09→18:06)
[2019-05-09] MEDS ORDERED: D50W 25 GM/50 ML SYRINGE/VIAL IV PRN ×3 (09:09→18:06)
[2019-05-09] MEDS: MULTIVITAMIN TAB PO SCH (09:10)
[2019-05-09] MEDS: lisinopriL 20 MG TAB PO SCH (09:10)
[2019-05-09] MEDS: ASPIRIN 81 MG CHEWABLE TABLET PO SCH (09:10)
[2019-05-09] MEDS ORDERED: INSULIN GLARGINE 100 UNITS/ML SQ SCH (09:10)
[2019-05-09] MEDS: hydroCHLOROthiazide 12.5 MG CAP PO SCH (09:10)
[2019-05-09] MEDS: PREGABALIN 75 MG CAP PO SCH ×3 (09:11→20:39)
[2019-05-09] MEDS: METOPROLOL TAR 25 MG TAB PO SCH (09:11)
[2019-05-09] MEDS: METHOCARBAMOL 750 MG TAB PO SCH (09:12)
[2019-05-09] MEDS: INSULIN -REGULAR HUMAN 50 UNIT/0.5 ML ML SQ SCH ×7 (09:13→20:37)
[2019-05-09] MEDS: SILVER SULFADIAZINE 1% 25 GM TOP SCH (09:15)
--- NOTE | 2019-05-09 10:18 | P.PN ---
Subjective Date of Service: 05/09/19 Chief Complaint: Left big toe cellulitis Subjective: No new changes, Improving Review of Systems 10-point ROS is otherwise unremarkable Respiratory: Unremarkable Cardiovascular: Unremarkable Physical Examination - Vital Signs Temperature: 98.3 F Blood Pressure: 154/68 Pulse: 66 Respirations: 20 Pulse Ox (%): 95 - Physical Exam General: Alert, In no apparent distress, Obese HEENT: Atraumatic, Normocephalic Neck: Supple, 2+ carotid pulse no bruit Respiratory: Clear to auscultation bilaterally, Normal air movement Cardiovascular: Normal pulses, Regular rate/rhythm Capillary refill: <2 Seconds Gastrointestinal: Soft and benign, W/out hepatosplenomegaly Musculoskeletal: No clubbing, Swelling, Erythema, Tenderness, Other (Left Big Toe tenderness + , Dressing intact ) Integumentary: Tenderness/swelling, Erythema Neurological: Normal speech, Normal strength at 5/5 x4 extr Lymphatics: No axilla or inguinal lymphadenopathy External genitalia: Deferred Rectal: Deferred - Studies Laboratory Data (last 24 hrs) 05/09/19 04:09: WBC 6.9, Hgb 10.9 L, Hct 32.6 L, Plt Count 158 05/09/19 04:09: Sodium 139, Potassium 4.1, BUN 14, Creatinine 0.76, Glucose 193 H, Phosphorus 2.9, Triglycerides 131, Cholesterol 140, HDL Cholesterol 36 L, Cholesterol/HDL Ratio 3.89 05/08/19 10:19: PT 12.7 H, INR 1.08 05/08/19 10:19: WBC 7.1, Hgb 11.3 L, Hct 33.6 L, Plt Count 185 05/08/19 10:17: Sodium 139, Potassium 4.3, BUN 19 H, Creatinine 0.78, Glucose 165 H, Phosphorus 2.4 L, Magnesium 2.0, Total Bilirubin 0.4, AST 27, ALT 32, Alkaline Phosphatase 81 Assessment & Plan - Problems (Diagnosis) (1) Ulcer of left great toe due to diabetes mellitus Current Visit: No Status: Acute Plan: Monitor under telemetry Started on IV antibiotics Pain medications Blood and wound cultures pending Surgery consult appreciated MRI of the foot to rule out osteomyelitis, awaited will get a plain Xr foot (2) Diabetes Current Visit: No Status: Acute Plan: Continue home medications and titrate as needed Start on insulin sliding scale and basal insulin (3) Hyperlipidemia Current Visit: No Status: Chronic Plan: Continue home medications and titrate as needed (4) Hypertension Current Visit: No Status: Chronic Plan: Continue home medications and titrate as needed Hydralazine p.r.n. (5) Morbid obesity with BMI of 40.0-44.9, adult Current Visit: No Status: Chronic Plan: Advised lifestyle modification (6) Neuropathy Current Visit: No Status: Chronic Plan: Continue home medications and titrate as needed (7) Osteomyelitis of great toe of left foot Current Visit: Yes Status: Acute Plan: Continue Antibiotics ID consult Will get a PICC line placed May need antibiotic for 6 weeks Time Spent Managing Pts Care (In Minutes): 43
[2019-05-09] MEDS: CEFEPIME/SWI 1gm 10 ML IV SCH ×2 (10:43→20:37)
--- NOTE | 2019-05-09 11:17 | RAD REPORT ---
EXAM DESCRIPTION: RAD - Foot Left 3 View - 05/09/2019 11:11 am CLINICAL HISTORY: to r/o Osteomyelitis Pain and swelling great toe COMPARISON: Foot Left 3 View dated 11/03/2018; Foot Left 3 View dated 04/20/2016 FINDINGS: Marked destructive changes involve the distal phalanx of the great toe with surrounding so ft tissue swelling, compatible with osteomyelitis. No soft tissue gas is identified.
[2019-05-09] MEDS: VANCOMYCIN 2 GM in NA CHLORIDE 0.9% 500 ML IVPB SCH ×2 (11:22→23:18)
[2019-05-09] MEDS: HYDROCODONE/APAP 10/325 TAB PO PRN ×2 (14:11→21:59)
--- NOTE | 2019-05-09 16:19 | PN ---
Date of Progress Note: 05/09/2019 Subjective: The patient is awake, alert. No new complaint. Vital signs stable, afebrile. His C-re active protein is elevated and his MRI could not be done because the coil was malfunctioning in the [facility] for [facility]. Therefore, I ordered a plain x-ray, which showed destructive osteomyelitis of the distal phalanx of the left great toe. Physical Examination: No change. No increase in erythema. Slight decrease in swelling and redness. Assessment: Osteomyelitis and wound in left great toe. Recommendation: The patient needs a PICC line. Continue his IV antibiotics. Wound care is ordered. We will follow up in the wound healing center in 2 weeks. Most likely, patient will need a partial amputation of that toe as the osteomyelitis is destructive, however, he would like to try to salvage the toe if it all possible. We will see how he progresses on IV antibiotics. At that time, we will make further recommendations. Plan of care discussed with Dr. Peralta. ORAL/VAZQEUZ Voice ID: [id number] Report ID: [id number]
[2019-05-09] MEDS ORDERED: INSULIN -REGULAR HUMAN 50 UNIT/0.5 ML ML SQ ONE (18:15)
[2019-05-09] MEDS: INSULIN GLARGINE 100 UNITS/ML SQ SCH (20:38)
[2019-05-09] MEDS: ATORVASTATIN 10 MG TAB PO SCH (20:39)
[2019-05-10] MEDS: HEPARIN 5000 UNIT/ML 1 ML VIAL SQ SCH ×3 (00:54→16:08)
[2019-05-10] MEDS: NA CHLORIDE 0.9% 1,000 ML IV SCH ×3 (03:00→23:00)
[2019-05-10 04:19] LABS: Basophils % 0.6 % (0-1.3); Hematocrit 31.1 % (39.6-49.0); Lymphocytes % 29.2 % (15.3-44.8); MPV 8.4 fL (7.6-11.3); RBC Red Blood Cell Count 3.74 M/uL (4.33-5.43)
[2019-05-10 04:33] LABS: BUN Blood Urea Nitrogen 14 mg/dL (7-18); Bicarbonate 30 mmol/L (21-32); Glucose Level 159 mg/dL (74-106); Sodium Level 140 mmol/L (136-145)
[2019-05-10] MEDS: CEFEPIME/SWI 1gm 10 ML IV SCH ×2 (08:23→21:36)
[2019-05-10] MEDS: ASPIRIN 81 MG CHEWABLE TABLET PO SCH (08:24)
[2019-05-10] MEDS: MULTIVITAMIN TAB PO SCH (08:24)
[2019-05-10] MEDS: PREGABALIN 75 MG CAP PO SCH ×3 (08:24→21:35)
[2019-05-10] MEDS: lisinopriL 20 MG TAB PO SCH (08:24)
[2019-05-10] MEDS: METHOCARBAMOL 750 MG TAB PO SCH (08:25)
[2019-05-10] MEDS: METOPROLOL TAR 25 MG TAB PO SCH (08:25)
[2019-05-10] MEDS: INSULIN GLARGINE 100 UNITS/ML SQ SCH ×2 (08:27→21:35)
[2019-05-10] MEDS: INSULIN -REGULAR HUMAN 50 UNIT/0.5 ML ML SQ SCH ×7 (08:28→21:00)
[2019-05-10] MEDS: hydroCHLOROthiazide 12.5 MG CAP PO SCH (08:35)
[2019-05-10] MEDS: SILVER SULFADIAZINE 1% 25 GM TOP SCH (08:35)
[2019-05-10] MEDS: HYDROCODONE/APAP 10/325 TAB PO PRN ×3 (10:30→22:35)
[2019-05-10] MEDS: VANCOMYCIN 2.25 GM in NA CHLORIDE 0.9% 500 ML IVPB SCH ×2 (11:00→22:34)
--- NOTE | 2019-05-10 11:46 | P.PN ---
Subjective Date of Service: 05/10/19 Chief Complaint: Left big toe cellulitis Subjective: No new changes, Improving Pain is controlled well No fever no chills Review of Systems 10-point ROS is otherwise unremarkable ENT: Unremarkable Respiratory: Unremarkable Physical Examination - Vital Signs Temperature: 97 F Blood Pressure: 151/72 Pulse: 76 Respirations: 20 Pulse Ox (%): 95 - Physical Exam General: Alert, In no apparent distress, Obese HEENT: Atraumatic, Normocephalic Neck: Supple, 2+ carotid pulse no bruit Respiratory: Clear to auscultation bilaterally, Normal air movement Cardiovascular: Regular rate/rhythm, Normal S1 S2 Capillary refill: <2 Seconds Gastrointestinal: Soft and benign, W/out hepatosplenomegaly Musculoskeletal: No clubbing, Swelling, Erythema, Tenderness, Other (Left Big Toe dressing intact ) Integumentary: No rashes Neurological: Normal speech, Normal strength at 5/5 x4 extr Lymphatics: No axilla or inguinal lymphadenopathy External genitalia: Deferred Rectal: Deferred - Studies Laboratory Data (last 24 hrs) 05/10/19 03:49: Sodium 140, Potassium 4.0, BUN 14, Creatinine 0.68, Glucose 159 H 05/10/19 03:49: WBC 6.8, Hgb 10.5 L, Hct 31.1 L, Plt Count 164 Microbiology Data (last 24 hrs): 05/08/19 12:30 Wound - Left Foot Gram Stain - Final 05/08/19 12:30 Wound - Left Foot Culture & Sensitivity - Final Staph Aureus 05/08/19 11:00 Clean Catch Urine [place] Count - Final 05/08/19 11:00 Clean Catch Urine - Final No growth. Assessment & Plan - Problems (Diagnosis) (1) Ulcer of left great toe due to diabetes mellitus Current Visit: No Status: Acute Plan: Monitor under telemetry Started on IV antibiotics Pain medications Blood and wound cultures pending Surgery consult appreciated X-ray foot consistent with osteomyelitis, Will get an ID consult PICC line may Need IV antibiotics for 6 weeks (2) Diabetes Current Visit: No Status: Chronic Plan: Continue home medications and titrate as needed Start on insulin sliding scale and basal insulin A1c is 8.6 Qualifiers: Diabetes mellitus complication status: with skin complications Diabetes mellitus complication detail: with foot ulcer (3) Hyperlipidemia Current Visit: No Status: Chronic Plan: Continue home medications and titrate as needed (4) Hypertension Current Visit: No Status: Chronic Plan: Continue home medications and titrate as needed Hydralazine p.r.n. (5) Morbid obesity with BMI of 40.0-44.9, adult Current Visit: No Status: Chronic Plan: Advised lifestyle modification (6) Neuropathy Current Visit: No Status: Chronic Plan: Continue home medications and titrate as needed (7) Osteomyelitis of great toe of left foot Current Visit: Yes Status: Acute Plan: Continue Antibiotics ID consult PICC line placed May need antibiotic for 6 weeks Awaiting final culture report Follow up with Dr. Edwards in 1-2 weeks Discharge Plan: Home Plan to discharge in: 48 Hours Time Spent Managing Pts Care (In Minutes): 39
--- NOTE | 2019-05-10 20:53 | CON ---
History Of Present Illness: This is a 48-year-old male with significant history of diabetes mellitus and diabetic neuropathy. Also, has hypertension, GERD, and hypercholesterolemia. Patient was sent to the hospital by surgical team for evaluation of left big toe cellulitis and fevers, and swelling o f the foot. Patient was admitted with diabetic foot ulcers, osteomyelitis, and cellulitis of the levy t, which currently involving the big toe region feels much better today. Denies any other problems. Past Medical History: Hypercholesterolemia, diabetes mellitus, diabetic neuropathy, hypertension. Social History: Nonsmoker. Occasional alcohol use. Past Surgical History: Left knee surgery, bilateral toe bunion removed. Review of Systems: 10-point review was performed. Physical Examination: General: This is a 48-year-old male, lying in bed, not in any acute cardiopulmonary distress. Vital Signs: Temperature 97, pulse 76, respirations 20, blood pressure 150/72. HEENT: Unremarkable. Neck: Supple. Lungs: Basal crackles. Heart: S1, S2. Regular. Abdomen: Soft, nontender. Bowel sounds present. Extremities: Left foot swelling involving the big toe noted with ulceration noted at the bottom of t he big toe 2.5 x 1 cm, 0.1 in depth. Laboratory Data: WBC 6.8, hemoglobin 10.5, platelets are 164. Chemistry shows sodium 140, potassium 4, chloride 107, bicarb 30, BUN 14, creatinine 0.68, glucose 159. Micro data is growing Staph aureu s, sensitive to Bactrim, tetracycline, cefazolin, vancomycin, Levaquin, oxacillin, and Cipro. Assessment And Plan: Left foot big toe osteomyelitis with diabetic foot ulcer, cellulitis of foot is improving. We will recommend at least continue IV antibiotics for 4 weeks. Recommend to put patien t on Levaquin 500 mg daily as patient is growing MSSA. Recommend to control sugars better. Keep leg elevated for a couple of weeks as much as possible follow up with the wound care team. We will foll ow patient as needed. Thank you, Dr. Peralta for consult. NF/MODL Voice ID: [id number] Report ID: [id number]
[2019-05-10] MEDS: ATORVASTATIN 10 MG TAB PO SCH (21:35)
[2019-05-11] MEDS: HEPARIN 5000 UNIT/ML 1 ML VIAL SQ SCH ×3 (01:18→16:45)
[2019-05-11] MEDS: CEFEPIME/SWI 1gm 10 ML IV SCH (08:28)
[2019-05-11] MEDS: METHOCARBAMOL 750 MG TAB PO SCH (08:29)
[2019-05-11] MEDS: METOPROLOL TAR 25 MG TAB PO SCH (08:29)
[2019-05-11] MEDS: lisinopriL 20 MG TAB PO SCH (08:29)
[2019-05-11] MEDS: MULTIVITAMIN TAB PO SCH (08:30)
[2019-05-11] MEDS: ASPIRIN 81 MG CHEWABLE TABLET PO SCH (08:30)
[2019-05-11] MEDS: hydroCHLOROthiazide 12.5 MG CAP PO SCH (08:30)
[2019-05-11] MEDS: INSULIN -REGULAR HUMAN 50 UNIT/0.5 ML ML SQ SCH ×7 (08:30→20:19)
[2019-05-11] MEDS: PREGABALIN 75 MG CAP PO SCH ×3 (08:31→20:19)
[2019-05-11] MEDS: INSULIN GLARGINE 100 UNITS/ML SQ SCH ×2 (08:32→20:19)
[2019-05-11] MEDS: SILVER SULFADIAZINE 1% 25 GM TOP SCH (08:32)
[2019-05-11] MEDS: NA CHLORIDE 0.9% 1,000 ML IV SCH ×2 (09:00→16:47)
--- NOTE | 2019-05-11 09:23 | P.PN ---
Subjective Date of Service: 05/11/19 Chief Complaint: Left big toe cellulitis Subjective: Improving, Doing well <Kun Robertsonua - Last Filed: 05/11/19 09:17> Date of Service: 05/11/19 <Joesph Pfeiffer - Last Filed: 05/11/19 17:27> Review of Systems General: Unremarkable Eyes: Unremarkable ENT: Unremarkable Respiratory: Unremarkable Cardiovascular: Unremarkable Gastrointestinal: Unremarkable Musculoskeletal: Unremarkable Integumentary: Other (Diabetic ulcer with osteomyelitis left great toe ) Neurological: Unremarkable Lymphatics: Unremarkable <AilynAnnKam - Last Filed: 05/11/19 09:17> Physical Examination - Vital Signs Temperature: 98.0 F Blood Pressure: 161/72 Pulse: 65 Respirations: 18 Pulse Ox (%): 96 - Physical Exam General: Alert, In no apparent distress, Oriented x3, Cooperative HEENT: PERRLA, Mucous membr. moist/pink, EOMI Neck: Supple, 2+ carotid pulse no bruit, JVD not distended, No Thyromegaly Respiratory: Clear to auscultation bilaterally, Normal air movement Cardiovascular: No edema, Normal pulses, Regular rate/rhythm, Normal S1 S2, No gallops, No rubs, No murmurs Capillary refill: <2 Seconds Gastrointestinal: Normal bowel sounds, Soft and benign, Non-distended, No ascites, No tenderness, No masses Musculoskeletal: No clubbing, No swelling, No tenderness Integumentary: Other (approximately 2.5 cm ulceration to bottom of left big toe. Minimal erythema. Clean in appearance ) Neurological: Normal speech, Normal strength at 5/5 x4 extr, Normal tone, Sensation intact, Cranial nerves 3-12 intact, Normal reflexes 2+, Normal affect Lymphatics: No axilla or inguinal lymphadenopathy - Studies Microbiology Data (last 24 hrs): 05/08/19 12:30 Wound - Left Foot Gram Stain - Final 05/08/19 12:30 Wound - Left Foot Culture & Sensitivity - Final Staph Aureus 05/08/19 11:00 Clean Catch Urine Show Low Count - Final 05/08/19 11:00 Clean Catch Urine - Final No growth. Medications List Reviewed: Yes <Kam Robertson - Last Filed: 05/11/19 09:17> - Studies Microbiology Data (last 24 hrs): 05/08/19 12:30 Wound - Left Foot Gram Stain - Final 05/08/19 12:30 Wound - Left Foot Culture & Sensitivity - Final Staph Aureus <Joesph Pfeiffer - Last Filed: 05/11/19 17:27> Assessment And Plan - Current Problems (Diagnosis) (1) Osteomyelitis of great toe of left foot Current Visit: Yes Status: Acute (2) Ulcer of left foot due to type 2 diabetes mellitus Current Visit: No Status: Acute (3) Diabetes Current Visit: No Status: Chronic Qualifiers: Diabetes mellitus type: type 2 Diabetes mellitus complication status: with skin complications Diabetes mellitus complication detail: with foot ulcer (4) Hyperlipidemia Current Visit: No Status: Chronic (5) Hypertension Current Visit: No Status: Chronic (6) Morbid obesity with BMI of 40.0-44.9, adult Current Visit: No Status: Chronic (7) Neuropathy Current Visit: No Status: Chronic - Plan Patient doing much better today. Minimal pain at this time. No discharge, clean looking ulcerated diabetic wound. No major surrounding cellulitis or lymphangitis. Patient tolerating p.o. medicine and food. Will continue IV antibiotics for the next several weeks for osteomyelitis. PICC line was placed last night. No complications from the insertion of central line. Pending prison versus home health at this time from health services information specialist. Once that is figured out, disposition will be done. Hopefully will have disposition within next 24 hr. Discharge Plan: Other Plan to discharge in: 24 Hours - Code Status/Comfort Care Code Status Assessed: Yes Critical Care: No Time Spent Managing PTS Care (In Minutes): 25 <aKm Robertson - Last Filed: 05/11/19 09:17> - Plan Notes and case reviewed will with Kun Robertson NP. Continue with current plan of care. Will try to arrange for IV antibiotic therapy Levaquin IV daily for 6 weeks at home as recommended by infectious disease. Arrangements will likely finalize over the weekend or probably on Tuesday. <Joesph Pfeiffer - Last Filed: 05/11/19 17:27>
[2019-05-11] MEDS: VANCOMYCIN 2.25 GM in NA CHLORIDE 0.9% 500 ML IVPB SCH (11:00)
--- NOTE | 2019-05-11 11:51 | RAD REPORT ---
EXAM DESCRIPTION: RAD - Chest Single View - 05/11/2019 4:38 am CLINICAL HISTORY: The patient is 48 years old and is Male; PICC Placement TECHNIQUE: Frontal view of the chest. COMPARISON: No relevant prior studies available. FINDINGS: LUNGS: Unremarkable. No consolidation. PLEURAL SPACE: Unremarkable. No pneumothorax. HEART: The heart is enlarged. MEDIASTINUM: Unremarkable. BONES/JOINTS: Unremarkable. VASCULATURE: Mild prominence of the central vasculature is noted. TUBES, LINES AND DEVICES: A right upper extremity PICC is present with the tip at the SVC/RA shreya ction. IMPRESSION: 1. A right upper extremity PICC is present with the tip at the SVC/RA junction. 2. Borderline cardiomegaly with findings suggestive of mild vascular congestion. Electronically signed by: Kennedi Dsouza MD 05/11/2019 3:32 AM SCREEN STRETCHER Due to temporary technical issues with the PACS/Fluency reporting system, reports are being signed by the in house radiologist as a courtesy to ensure prompt reporting. The interpreting radiologist is f ully responsible for the content of the report.
[2019-05-11] MEDS: Levofloxacin500mg IV 500 MG/100 ML BAG IV SCH (13:00)
--- NOTE | 2019-05-11 16:23 | PN ---
Subjective: Patient lying in bed. No new acute event. Chart reviewed. Objective: Vital Signs: Temperature 97.3, pulse 69, respirations 18, blood pressure 155/72. No changes in examination. Good granulation tissue at the wound base. Laboratory Data: Lab data reviewed. No new labs today. Assessment And Plan: Diabetic foot ulcer, diabetic neuropathy, peripheral arterial disease. Continu e antibiotic and wound care for osteomyelitis. Total course of 6 weeks. We will follow the patient as needed. RBOINA/VAZQUEZ Voice ID: [id number] Report ID: [id number]
[2019-05-11] MEDS: ATORVASTATIN 10 MG TAB PO SCH (20:19)
[2019-05-11] MEDS: HYDROCODONE/APAP 10/325 TAB PO PRN (21:46)
[2019-05-12] MEDS: HEPARIN 5000 UNIT/ML 1 ML VIAL SQ SCH ×3 (00:16→16:26)
[2019-05-12] MEDS: NA CHLORIDE 0.9% 1,000 ML IV SCH ×3 (03:43→15:00)
[2019-05-12 04:36] LABS: Absolute Lymphocytes (CBC) 2.1 K/uL (0.7-4.9); Basophils % 0.6 % (0-1.3); Hematocrit 35.1 % (39.6-49.0); MPV 8.6 fL (7.6-11.3); RBC Red Blood Cell Count 4.18 M/uL (4.33-5.43)
[2019-05-12 04:40] LABS: BUN Blood Urea Nitrogen 14 mg/dL (7-18); Bicarbonate 30 mmol/L (21-32); Glucose Level 123 mg/dL (74-106); Potassium 3.8 mmol/L (3.5-5.1); Sodium Level 140 mmol/L (136-145)
[2019-05-12] MEDS: INSULIN -REGULAR HUMAN 50 UNIT/0.5 ML ML SQ SCH ×6 (08:57→16:25)
[2019-05-12] MEDS: PREGABALIN 75 MG CAP PO SCH ×2 (08:59→14:17)
[2019-05-12] MEDS: MULTIVITAMIN TAB PO SCH (08:59)
[2019-05-12] MEDS: hydroCHLOROthiazide 12.5 MG CAP PO SCH (08:59)
[2019-05-12] MEDS: lisinopriL 20 MG TAB PO SCH (08:59)
[2019-05-12] MEDS: ASPIRIN 81 MG CHEWABLE TABLET PO SCH (09:00)
[2019-05-12] MEDS ORDERED: POTASSIUM CL SA 10 MEQ TAB PO ONE (09:00)
[2019-05-12] MEDS: METOPROLOL TAR 25 MG TAB PO SCH (09:00)
[2019-05-12] MEDS: INSULIN GLARGINE 100 UNITS/ML SQ SCH (09:02)
[2019-05-12] MEDS: METHOCARBAMOL 750 MG TAB PO SCH (09:04)
[2019-05-12] MEDS: SILVER SULFADIAZINE 1% 25 GM TOP SCH (09:05)
[2019-05-12 10:06] VITALS: O2SAT 95
[2019-05-12] MEDS ORDERED: HYDRALAZINE HCL 20 MG/ML VIAL IV PRN (11:58)
[2019-05-12] MEDS: Levofloxacin500mg IV 500 MG/100 ML BAG IV SCH (12:13)
[2019-05-12 16:46] VITALS: BP 161/77; TEMP 97.5
--- NOTE | 2019-05-12 17:40 | PN ---
Subjective: Currently, the patient is sitting in bed. he had no chest pain. No abdominal pain. No fever. No chills. Earlier this morning, has episode of bradycardia. Objective: Vital Signs: Currently vital signs, blood pressure 137/77, respiratory rate 16, pulse 69, temperature 97.9. General: The patient is alert and oriented x3. Does not look in any distress. HEENT: Atraumatic, normocephalic. PERRLA. Oral mucosa is moist. Neck: Supple. No JVD. No carotid bruits. Chest: Clear to auscultation with good air entry. Heart: Regular rate and rhythm. S1, S2 normal. No gallop or murmur. Abdomen: Soft, nontender. No masses. Obese. Positive bowel sounds. Extremities: No clubbing, no cyanosis, no edema. No calf tenderness. Left foot in dressing. Neurologic: Grossly intact. Cranial nerve exam 2 through 12 intact. Normal sensation. Normal reflexes. Normal muscle strength. Laboratory Data: Today showed CBC within normal except for mild anemia. Hemoglobin 10.6. CMP was normal except for glucose 123. Assessment And Plan: 1. Osteomyelitis of the great toe of the left foot. Continue IV antibiotic with Levaquin for 10 days , but due to patient's episode of bradycardia, we will wait for Cardiology clearance before we can send him home. In the meantime , we will continue IV antibiotic with Levaquin. The patient will need to follow up with ID on outpatient basis. He already has a PICC line for his IV antibiotic at home. 2. Diabetes mellitus need to adjust his medication. In the meantime, we will continue home medication. 3. Hyperlipidemia. Continue atorvastatin as before. 4. Hypertension. He is on hydrochlorothiazide. We will continue on lisinopril. I will add hydralazine 10 mg every 6 hours as needed for better control . 5. Neuropathy. He is on Lyrica 75 mg t.i.d. 6. Bradycardiac episode. Cardiac consult requested. Continue on tele. 7. Overweight. Advised diet and exercise. 8. Discharge home hopefully in a.m. if Cardiology clears him. DAVID/VAZQUEZ Voice ID: [id number] Report ID: [id number]
--- NOTE | 2019-05-13 00:31 | CON ---
Date of Consultation: 05/12/2019 Reason For Consultation: Abnormal rhythm. History Of Present Illness: Mr. Chaves is a 48-year-old [place] male. He is known to me from p revious office visit about 2 years ago. At that time, he had a normal echocardiogram and a normal st ress test. He is here being treated for foot cellulitis and they are planning to discharge him home, but they asked me to see him because on his EKG, there is some evidence of bigeminy and sinus bradyc ardia. I reviewed my records and he had PVCs and bigeminy even then, this is why he had the workup. He denied any symptoms with it. Denied chest pain, shortness of breath, nausea, vomiting, diaphores is, PND, orthopnea, pedal edema, palpitations, or syncope. Past Medical History: Include diabetes, hypertension, neuropathy, dyslipidemia. Review of Systems: Negative. Social History: Negative. Family History: Negative. Medications: At home include aspirin, insulin, Victoza, metformin, metoprolol, Lyrica, Zocor, hydroc hlorothiazide. Physical Examination: Vital Signs: Stable, afebrile. He was in sinus rhythm when I saw him, occasional ectopy. HEENT: Negative. Neck: Supple with no bruit. Chest: Clear to auscultation and percussion. Cardiac: Revealed a regular rhythm and rate. No murmurs, gallops, or rubs. Abdomen: Obese. Extremities: Revealed no clubbing, cyanosis, or edema. He has foot cellulitis. Diagnostic Data: Within normal limit. Impression And Plan: Chronic sinus bradycardia, PVCs, and bigeminy. Negative cardiac workup in the past. I see no reason to keep Mr. Chaves in the hospital because of that. He can certainly go home an d he can follow up with me if he becomes symptomatic. His sinus bradycardia may be related to his me toprolol, but his blood pressure is controlled and he has no symptoms and no atrial arrhythmia. I am not going to change his medicine at this point. Other problems include his cellulitis with planned IV therapy at home for 4 weeks. His diabetes, blood pressure, and dyslipidemia are well controlled. CHENCHO/VAZQUEZ Voice ID: [id number] Report ID: [id number]
--- NOTE | 2019-05-13 06:56 | DS ---
Date of Discharge: 05/12/2019 Discharge Diagnoses: 1. Osteomyelitis of the great toe of the left foot S/P debridement. 2. Diabetes mellitus. 3. Hyperlipidemia. 4. Hypertension. 5. Neuropathy. 6. Bradycardic episode. 7. Overweight. Consults: Cardiology, ID, consult from Dr. Elliot Edwards. Procedure: 1. Foot x-ray done on the day of admission showed marked destructive changes involving the distal phalanges of the great toe and surrounding soft tissue swelling compatible with osteomyelitis. 2. Lower extremity Doppler on 05/08 was negative for DVT. 3. Chest x-ray. History Of Present Illness: Please refer to Dr. Peralta's admission note. Hospital Course: Initially, patient presented with swelling of the vein of the left big toe and Dr Edwards office, was sent into the hospital for possible osteomyelitis. In the hospital, patient was started on IV antibiotics. Dr. Elliot Edwards decided he will not do surgery trying to spare that toe. X-ray confirmed osteomyelitis. Dr. Kyle from ID to has seen the patient. He advised the patient to be switched to Levaquin for at least 4 weeks given the fact that he is growing MSSA. Patient was initially on broad-spectrum antibiotics, but we changed it to IV Levaquin and cont to for 4-6 wks and patient would be discharged today. This morning, patient had episode of bradycardia. Dr. Vazquez consulted, and there was no indication in the system, but the patient is insisting to leave and Dr. Vazquez cleared him, though again I do not see that recommendation, I do not see any note particularly in the chart by Dr. Vazquez. Patient will be discharged today in stable condition. Need to follow up with Dr. Edwards in the office next week as well as primary care physician. He will also need to follow up with Cardiology and Dr. Vazquez advised that. He will need to continue IV antibiotic with Levaquin for total of 4-[address] Jeramie Kyle. Discharge Condition: Stable. Discharge Examination: Already in place in the progress note today the same day because I initially did not discharge the patient. Discharged Diet: Diabetic 1800 ADA. Discharge Medications: Aspirin 81 mg orally once a day, was asked to continue, insulin regular 10 units before meals, Victoza 0.6 mg pen injector 1.8 units subcutaneously daily, lisinopril/hydrochlorothiazide 1 tablet twice a day, metformin 1000 mg twice a day. also IV Levqauin for 4-6 wks Pt need to follow up with Dr Bobo as outpt to decide final length of ABX MT/MODL Voice ID: [id number] Report ID: [id number]
== END 2019-05-12 18:40 | disposition home health service (06) | DRG 540 ==
LOC: 4TH 09:41
PROVIDERS: ADMIT Internal Medicine; ATTEND Family Medicine
DX: M86.172 Other acute osteomyelitis, left ankle and foot (principal); Z68.41 Body mass index [BMI] 40.0-44.9, adult; I10 Essential (primary) hypertension; E78.5 Hyperlipidemia, unspecified; E11.621 Type 2 diabetes mellitus with foot ulcer; L97.529 Non-pressure chronic ulcer of other part of left foot with unspecified severity; E66.01 Morbid (severe) obesity due to excess calories; E11.40 Type 2 diabetes mellitus with diabetic neuropathy, unspecified; K21.9 Gastro-esophageal reflux disease without esophagitis; I73.9 Peripheral vascular disease, unspecified; E11.69 Type 2 diabetes mellitus with other specified complication; B95.61 Methicillin susceptible Staphylococcus aureus infection as the cause of diseases classified elsewhere; R00.1 Bradycardia, unspecified
CPT/HCPCS: 36415; 71045; 80048; 80053; 80061; 80202; 81001; 82947; 83036; 83605; 83735; 84100; 85025; 85610; 86140; 87040; 87070; 87077; 87086; 87088; 87186; 87205; 93926; J0360; J0692; J1644; J1815; J2270; J7030; J7040

== ENCOUNTER 2021-10-23 18:39 | Emergency (ER) | payer OTHER ==
--- OUTSIDE RECORDS SUMMARY | 2021-10-23 18:44 | XMS REPORT | Continuity of Care Document ---
:1970 Author Organization [facility] t Address [address] [place] [address] Care Team Providers Name Role Phone Ross Dow Primary Care Physician NEELIMA RODRIGUEZ Attending Clinician Unavailable Neelima Rodriguez MD Attending Clinician TWIN SEYMOUR Attending Clinician Unavailable Payers Payer Name Policy Type Policy Number Effective Date Expiration Date S [facility] 3 [id number] 2020 00:00:00 Problems Condition Condition Condition Status Onset Resolution Last Treating Co mments Source Name Details Category Date Date Treatment Clinician Date Iron Iron Disease Active NPI:183 deficiency deficiency 01-15 08331 anemia, anemia, 00:00: unspecifie unspecifie 00 d iron d iron deficiency deficiency anemia anemia type type Obesity Obesity Disease Active NPI:183 (BMI (BMI 7-29 2808462 30-39.9) 30-39.9) 00:00: 00 Acute Acute Disease Active NPI:183 blood loss blood loss 01-15 13 33091 anemia anemia 00:00: 00 Morbid Morbid Disease Active NPI:183 obesity, obesity, 11-22 280064 1 unspecifie unspecifie 00:00: d obesity d obesity 00 type type Cushingoid Cushingoid Disease Active N PI: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 3-30 5833390 00:00: 00 Dyslipidem Dyslipidem Disease Active 2015-06 N PI:183 ia ia 07-26 8121947 00:00: 00 Neuropathy Neuropathy Disease Active 2015-06 N PI:183 07-26 1201320 00:00: 00 Type 2 Type 2 Disease Active NPI:183 diabetes, diabetes, 02-23 1318 781 uncontroll uncontroll 00:00: ed, with ed, with 00 neuropathy neuropathy Essential Essential Disease Active NPI :183 hypertensi hypertensi 02-23 29282 on on 00:00: 00 HLD HLD Disease Active NPI:183 (hyperlipi (hyperlipi 02-23 demia) demia) 00:00: 00 Allergies, Adverse Reactions, Alerts Allergy Allergy Status Severity Reaction(s) Onset Inactive Treating Comm ents Source Name Type Date Date Clinician NO KNOWN Drug Active NPI:183 ALLERGIE Class [id number] S Social History Social Habit Start Date Stop Date Quantity Comments Source History SDOH NPI:[id number] Alcohol Frequency History SDOH NPI:[id number] 81 Alcohol Std Drinks History SDOH NPI:[id number] 81 Alcohol Binge Exposure to 2021-08-16 2021-09-15 Not sure NPI:[id number] 1 SARS-CoV-2 (event) 00:00:00 15:49:00 Alcohol intake 2021-05-21 2021-05-21 Current drinker NPI:1 [id number] 00:00:00 00:00:00 of alcohol (finding) Alcohol Comment 2020-12-28 2020-12-28 social NPI:[id number] 00:00:00 00:00:00 [birth year] NPI:[id number] 00:00:00 00:00:00 Smoking Status Start Date Stop Date Source Never smoker Medications Ordered Filled Start Stop Current Ordering Indication Dosage Frequency Signature Comments Components Source Medication Medication Date Date Medication? Clinician (SIG) Name Name metFORMIN Yes [id number] 1000mg Take 1 NPI:183 1,000 mg 5-03 tablet by [id number] 1 tablet 00:00: mouth 2 00 (two) times daily with meals. lisinopriL- 2021-0 Yes [id number] TAKE 1 NPI:183 hydrochloro 5-03 TABLET [id number] 1 thiazide 00:00: TWICE A 20-12.5 mg 00 DAY per tablet dapaglifloz 2021-0 Yes [id number] 10mg Take 1 NPI:183 in 4-26 tablet by [id number] ([facility]) 00:00: mouth 10 mg 00 daily. tablet dapaglifloz 2-0 Yes [id number] 10mg Take 1 NPI:183 in 4-26 tablet by [id number] ([facility]) 00:00: mouth 10 mg 00 daily. tablet dapaglifloz 2-0 Yes [id number] 10mg Take 1 NPI:183 in 4-26 tablet by [id number] ([facility]) 00:00: mouth 10 mg 00 daily. tablet insulin Yes Inject NPI:183 regular 4-18 55-60 [id number] human 00:00: units (HUMULIN R) 00 three 500 unit/mL times injection daily before meals. Dx E11.40 insulin Yes 1{appli 1 NPI:183 U-500 4-18 cator} Applicator [id number] 1 syringe-nee 00:00: 3 (three) dle (BD 00 times INSULIN daily with SYRINGE meals. Use U-500) 1/2 to mL 31 gauge administer x 1564" U-500 Syrg insulin three times a day. Dx. E11.40 insulin Yes Inject NPI:183 regular 4-18 55-60 [id number] human 00:00: units (HUMULIN R) 00 three 500 unit/mL times injection daily before meals. Dx E11.40 insulin Yes 1{appli 1 NPI:183 U-500 4-18 cator} Applicator [id number] 1 syringe-nee 00:00: 3 (three) dle (BD 00 times INSULIN daily with SYRINGE meals. Use U-500) 1/2 to mL 31 gauge administer x 1564" U-500 Syrg insulin three times a day. Dx. E11.40 insulin Yes Inject NPI:183 regular 4-18 55-60 [id number] human 00:00: units (HUMULIN R) 00 three 500 unit/mL times injection daily before meals. Dx E11.40 insulin 2021-0 Yes 1{appli 1 NPI:183 U-500 4-18 cator} Applicator [id number] 1 syringe-nee 00:00: 3 (three) dle (BD 00 times INSULIN daily with SYRINGE meals. Use U-500) 1/2 to mL 31 gauge administer x 15/64" U-500 Syrg insulin three times a day. Dx. E11.40 insulin 2021-0 Yes Inject NPI:183 regular 4-18 55-60 [id number] human 00:00: units (HUMULIN R) 00 three 500 unit/mL times injection daily before meals. Dx E11.40 insulin 2021-0 Yes 1{appli 1 NPI:183 U-500 4-18 cator} Applicator [id number] 1 syringe-nee 00:00: 3 (three) dle (BD 00 times INSULIN daily with SYRINGE meals. Use U-500) 1/2 to mL 31 gauge administer x 15/64" U-500 Syrg insulin three times a day. Dx. E11.40 ACCU-CHEK 2022-0 Yes USE TO NPI:18 3 GUIDE TEST 4-06 CHECK [id number] STRIPS 00:00: GLUCOSE 3 strip 00 TIMES A DAY ACCU-CHEK 2022-0 Yes USE TO NPI:18 3 GUIDE TEST 4-06 CHECK [id number] STRIPS 00:00: GLUCOSE 3 strip 00 TIMES A DAY ACCU-CHEK 2022-0 Yes USE TO NPI:18 3 GUIDE TEST 4-06 CHECK [id number] STRIPS 00:00: GLUCOSE 3 strip 00 TIMES A DAY ACCU-CHEK 2022-0 Yes USE TO NPI:18 3 GUIDE TEST 4-06 CHECK [id number] STRIPS 00:00: GLUCOSE 3 strip 00 TIMES A DAY ACCU-CHEK 2022-0 Yes USE TO NPI:18 3 GUIDE TEST 4-06 CHECK [id number] STRIPS 00:00: GLUCOSE 3 strip 00 TIMES A DAY dapaglifloz 2022-0 Yes [id number] 10mg Take 1 NPI:183 in 3-30 tablet by [id number] ([facility]) 00:00: mouth 10 mg 00 daily. tablet dapaglifloz 2022-0 Yes [id number] 10mg Take 1 NPI:183 in 3-30 tablet by [id number] ([facility]) 00:00: mouth 10 mg 00 daily. tablet dapaglifloz 2022-0 Yes [id number] 10mg Take 1 NPI:183 in 3-30 tablet by [id number] ([facility]) 00:00: mouth 10 mg 00 daily. tablet dapaglifloz 2022-0 2022- No [id number] 10mg Take 1 NPI:183 in 3-30 04-26 tablet by [id number] ([facility]) 00:00: 00:00 mouth 10 mg 00 :00 daily. tablet dapaglifloz 2022-0 Yes [id number] 10mg Take 1 NPI:183 in 3-29 tablet by [id number] ([facility]) 00:00: mouth 10 mg 00 daily. tablet dapaglifloz 2022-0 Yes [id number] 10mg Take 1 NPI:183 in 3-29 tablet by [id number] ([facility]) 00:00: mouth 10 mg 00 daily. tablet dapaglifloz 2022-0 2022- No [id number] 10mg Take 1 NPI:183 in 3-29 03-30 tablet by [id number] ([facility]) 00:00: 00:00 mouth 10 mg 00 :00 daily. tablet ACCU-CHEK 2022-0 Yes USE TO NPI:18 3 FASTCLIX 3-17 CHECK [id number] LANCET DRUM 00:00: GLUCOSE 3 Misc 00 TIMES A DAY ACCU-CHEK 2022-0 Yes USE TO NPI:18 3 FASTCLIX 3-17 CHECK [id number] LANCET DRUM 00:00: GLUCOSE 3 Misc 00 TIMES A DAY ACCU-CHEK 2022-0 Yes USE TO NPI:18 3 FASTCLIX 3-17 CHECK [id number] LANCET DRUM 00:00: GLUCOSE 3 Misc 00 TIMES A DAY ACCU-CHEK 2022-0 Yes USE TO NPI:18 3 FASTCLIX 3-17 CHECK [id number] LANCET DRUM 00:00: GLUCOSE 3 Misc 00 TIMES A DAY ACCU-CHEK 2022-0 Yes USE TO NPI:18 3 FASTCLIX 3-17 CHECK [id number] LANCET DRUM 00:00: GLUCOSE 3 Misc 00 TIMES A DAY ACCU-CHEK 2022-0 Yes USE TO NPI:18 3 FASTCLIX 3-17 CHECK [id number] LANCET DRUM 00:00: GLUCOSE 3 Misc 00 TIMES A DAY ACCU-CHEK 2022-0 Yes USE TO NPI:18 3 FASTCLIX 3-17 CHECK [id number] LANCET DRUM 00:00: GLUCOSE 3 Misc 00 TIMES A DAY ACCU-CHEK 2022-0 Yes USE TO NPI:18 3 FASTCLIX 3-17 CHECK [id number] LANCET DRUM 00:00: GLUCOSE 3 Misc 00 TIMES A DAY METFORMIN 2021-0 Yes [id number] TAKE 1 GROUP SUPERVISOR YARD I:183 1,000 mg 2-14 TABLET [id number] tablet 00:00: TWICE 00 DAILY WITH MEALS Insulin 2021-0 Yes [id number] Use 3 NPI:1 [address] [place], 2-14 times [id number] Disposable, 00:00: daily with (BD INSULIN 00 insulin. PEN NEEDLE Dx E11.65 UF) 31 gauge x 5/16" Ndle METFORMIN 2021-0 Yes [id number] TAKE 1 GROUP SUPERVISOR YARD I:183 1,000 mg 2-14 TABLET [id number] tablet 00:00: TWICE 00 DAILY WITH MEALS Insulin 202-0 Yes [id number] Use 3 NPI:1 [address], 2-14 times [id number] Disposable, 00:00: daily with (BD INSULIN 00 insulin. PEN NEEDLE Dx E11.65 UF) 31 gauge x 5/16" Ndle METFORMIN 2021-0 Yes [id number] TAKE 1 GROUP SUPERVISOR YARD I:183 1,000 mg 2-14 TABLET [id number] tablet 00:00: TWICE 00 DAILY WITH MEALS Insulin 202-0 Yes [id number] Use 3 NPI:1 [address], 2-14 times [id number] Disposable, 00:00: daily with (BD INSULIN 00 insulin. PEN NEEDLE Dx E11.65 UF) 31 gauge x 5/16" Ndle METFORMIN 2021-0 Yes [id number] TAKE 1 GROUP SUPERVISOR YARD I:183 1,000 mg 2-14 TABLET [id number] tablet 00:00: TWICE 00 DAILY WITH MEALS Insulin 202-0 Yes [id number] Use 3 NPI:1 [address], 2-14 times [id number] Disposable, 00:00: daily with (BD INSULIN 00 insulin. PEN NEEDLE Dx E11.65 UF) 31 gauge x 5/16" Ndle METFORMIN 2021-0 Yes [id number] TAKE 1 GROUP SUPERVISOR YARD I:183 1,000 mg 2-14 TABLET [id number] tablet 00:00: TWICE 00 DAILY WITH MEALS Insulin 0 Yes [id number] Use 3 NPI:1 [address], 2-14 times [id number] Disposable, 00:00: daily with (BD INSULIN 00 insulin. PEN NEEDLE Dx E11.65 UF) 31 gauge x 5/16" Ndle METFORMIN Yes [id number] TAKE 1 GROUP SUPERVISOR YARD I:183 1,000 mg 2-14 TABLET [id number] tablet 00:00: TWICE 00 DAILY WITH MEALS Insulin 0 Yes [id number] Use 3 NPI:1 [address], 2-14 times [id number] Disposable, 00:00: daily with (BD INSULIN 00 insulin. PEN NEEDLE Dx E11.65 UF) 31 gauge x 5/16" Ndle METFORMIN Yes [id number] TAKE 1 GROUP SUPERVISOR YARD I:183 1,000 mg 2-14 TABLET [id number] tablet 00:00: TWICE 00 DAILY WITH MEALS Insulin Yes [id number] Use 3 NPI:1 [address], 2-14 times [id number] Disposable, 00:00: daily with (BD INSULIN 00 insulin. PEN NEEDLE Dx E11.65 UF) 31 gauge x 5/16" Ndle Insulin Yes [id number] Use 3 NPI:1 [address], 2-14 times [id number] Disposable, 00:00: daily with (BD INSULIN 00 insulin. PEN NEEDLE Dx E11.65 UF) 31 gauge x 5/16" Ndle METFORMIN 2021- No [id number] TAKE 1 N PI:183 1,000 mg 2-14 05-03 TABLET [id number] tablet 00:00: 00:00 TWICE 00 :00 DAILY WITH MEALS multivit-mi 2020-06 Yes 1{tbl} Take 1 GROUP SUPERVISOR YARD I:183 n-FA-lycope 2-02 tablet by 131 8781 n-lutein 17:14: mouth (CENTRUM 57 daily. SILVER MEN) 300-600-300 mcg Tab aspirin 81 2020-06 Yes 81mg Take 81 mg N PI:183 mg EC 2-02 by mouth [id number] tablet 17:14: daily. 57 multivit-mi 2020-06 Yes 1{tbl} Take 1 GROUP SUPERVISOR YARD I:183 n-FA-lycope 2-02 tablet by 131 8781 n-lutein 17:14: mouth (CENTRUM 57 daily. SILVER MEN) 300-600-300 mcg Tab aspirin 2020-06 Yes 81mg Take 81 mg N PI:183 mg EC 2-02 by mouth [id number] tablet 17:14: daily. 57 multivit-mi 2020-06 Yes 1{tbl} Take 1 GROUP SUPERVISOR YARD I:183 n-FA-lycope 2-02 tablet by 131 8781 n-lutein 17:14: mouth (CENTRUM 57 daily. SILVER MEN) 300-600-300 mcg Tab aspirin 2020-06 Yes 81mg Take 81 mg N PI:183 mg EC 2-02 by mouth [id number] tablet 17:14: daily. 57 multivit-mi 2020-06 Yes 1{tbl} Take 1 GROUP SUPERVISOR YARD I:183 n-FA-lycope 2-02 tablet by 131 8781 n-lutein 17:14: mouth (CENTRUM 57 daily. SILVER MEN) 300-600-300 mcg Tab aspirin 2020-06 Yes 81mg Take 81 mg N PI:183 mg EC 2-02 by mouth [id number] tablet 17:14: daily. 57 multivit-mi 2020-06 Yes 1{tbl} Take 1 GROUP SUPERVISOR YARD I:183 n-FA-lycope 2-02 tablet by 131 8781 n-lutein 17:14: mouth (CENTRUM 57 daily. SILVER MEN) 300-600-300 mcg Tab aspirin 2020-06 Yes 81mg Take 81 mg N PI:183 mg EC 2-02 by mouth [id number] tablet 17:14: daily. 57 multivit-mi 2020-06 Yes 1{tbl} Take 1 GROUP SUPERVISOR YARD I:183 n-FA-lycope 2-02 tablet by 131 8781 n-lutein 17:14: mouth (CENTRUM 57 daily. SILVER MEN) 300-600-300 mcg Tab aspirin 2020-06 Yes 81mg Take 81 mg N PI:183 mg EC 2-02 by mouth [id number] tablet 17:14: daily. 57 multivit-mi 2020-06 Yes 1{tbl} Take 1 GROUP SUPERVISOR YARD I:183 n-FA-lycope 2-02 tablet by 131 8781 n-lutein 17:14: mouth (CENTRUM 57 daily. SILVER MEN) 300-600-300 mcg Tab aspirin 2020-06 Yes 81mg Take 81 mg N PI:183 mg EC 2-02 by mouth [id number] tablet 17:14: daily. 57 multivit-mi 2020-06 Yes 1{tbl} Take 1 GROUP SUPERVISOR YARD I:183 n-FA-lycope 2-02 tablet by 131 8781 n-lutein 17:14: mouth (CENTRUM 57 daily. SILVER MEN) 300-600-300 mcg Tab aspirin 81 2020-06 Yes 81mg Take 81 mg N PI:183 mg EC 2-02 by mouth [id number] tablet 17:14: daily. 57 LISINOPRIL- 2020-06 Yes [id number] TAKE 1 NPI:183 HYDROCHLORO 2-02 TABLET 180042 1 THIAZIDE 00:00: TWICE A 20-12.5 mg 00 DAY per tablet LISINOPRIL- 2020-06 Yes [id number] TAKE 1 NPI:183 HYDROCHLORO 2-02 TABLET [id number] 1 THIAZIDE 00:00: TWICE A 20-12.5 mg 00 DAY per tablet LISINOPRIL- 2020-06 Yes [id number] TAKE 1 NPI:183 HYDROCHLORO 2-02 TABLET [id number] 1 THIAZIDE 00:00: TWICE A 20-12.5 mg 00 DAY per tablet LISINOPRIL- 2020-06 Yes [id number] TAKE 1 NPI:183 HYDROCHLORO 2-02 TABLET [id number] 1 THIAZIDE 00:00: TWICE A 20-12.5 mg 00 DAY per tablet LISINOPRIL- 2020-06 Yes [id number] TAKE 1 NPI:183 HYDROCHLORO 2-02 TABLET [id number] 1 THIAZIDE 00:00: TWICE A 20-12.5 mg 00 DAY per tablet LISINOPRIL- 2020-06 Yes [id number] TAKE 1 NPI:183 HYDROCHLORO 2-02 TABLET [id number] 1 THIAZIDE 00:00: TWICE A 20-12.5 mg 00 DAY per tablet LISINOPRIL- 2020-06 Yes [id number] TAKE 1 NPI:183 HYDROCHLORO 2-02 TABLET [id number] 1 THIAZIDE 00:00: TWICE A 20-12.5 mg 00 DAY per tablet LISINOPRIL- 2020-06- No [id number] TAKE 1 NPI:183 HYDROCHLORO 2-02 05-03 TABLET [id number] 81 THIAZIDE 00:00: 00:00 TWICE A 20-12.5 mg 00 :00 DAY per tablet simvastatin 2020-06 Yes [id number] 20mg Take 1 NPI:183 20 mg 1-04 tablet by [id number] tablet 00:00: mouth at 00 bedtime. simvastatin 2020-06 Yes [id number] 20mg Take 1 NPI:183 20 mg 1-04 tablet by [id number] tablet 00:00: mouth at 00 bedtime. simvastatin 2020-06 Yes [id number] 20mg Take 1 NPI:183 20 mg 1-04 tablet by [id number] tablet 00:00: mouth at 00 bedtime. simvastatin 2020-06 Yes [id number] 20mg Take 1 NPI:183 20 mg 1-04 tablet by [id number] tablet 00:00: mouth at 00 bedtime. simvastatin 2020-06 Yes [id number] 20mg Take 1 NPI:183 20 mg 1-04 tablet by [id number] tablet 00:00: mouth at 00 bedtime. simvastatin 2020-06 Yes [id number] 20mg Take 1 NPI:183 20 mg 1-04 tablet by [id number] tablet 00:00: mouth at 00 bedtime. simvastatin 2020-06 Yes [id number] 20mg Take 1 NPI:183 20 mg 1-04 tablet by [id number] tablet 00:00: mouth at 00 bedtime. simvastatin 2020-06 Yes [id number] 20mg Take 1 NPI:183 20 mg 1-04 tablet by [id number] tablet 00:00: mouth at 00 bedtime. insulin 2020-06 Yes [id number] 100 units NPI:183 regular -02 at [id number] human 00:00: breakfast, (HUMULIN R) 00 120 units 500 unit/mL with lunch injection and 80units at dinner. insulin 2020-06 Yes [id number] 100 units NPI:183 regular 1-02 at [id number] human 00:00: breakfast, (HUMULIN R) 00 120 units 500 unit/mL with lunch injection and 80units at dinner. insulin 2020-06 Yes [id number] 100 units NPI:183 regular 1-02 at [id number] human 00:00: breakfast, (HUMULIN R) 00 120 units 500 unit/mL with lunch injection and 80units at dinner. insulin 2020-06 Yes [id number] 100 units NPI:183 regular 1-02 at [id number] human 00:00: breakfast, (HUMULIN R) 00 120 units 500 unit/mL with lunch injection and 80units at dinner. insulin 2020-06- No [id number] 100 units NPI:183 regular 06-21 0418 at [id number] human 00:00: 00:00 breakfast, (HUMULIN R) 00 :00 120 units 500 unit/mL with lunch injection and 80units at dinner. blood sugar 2020-06 Yes USE TO NPI: 183 diagnostic 0-27 CHECK [id number] (ACCU-CHEK 00:00: GLUCOSE 3 GUIDE TEST 00 TIMES A STRIPS) DAY strip blood sugar 2020-06 Yes USE TO NPI: 183 diagnostic 0-27 CHECK [id number] (ACCU-CHEK 00:00: GLUCOSE 3 GUIDE TEST 00 TIMES A STRIPS) DAY strip blood sugar 2020-06 Yes USE TO NPI: 183 diagnostic 0-27 CHECK [id number] (ACCU-CHEK 00:00: GLUCOSE 3 GUIDE TEST 00 TIMES A STRIPS) DAY strip blood sugar 2020-06- No USE TO NPI :183 diagnostic 0-27 04-06 CHECK [id number] (ACCU-CHEK 00:00: 00:00 GLUCOSE 3 GUIDE TEST 00 :00 TIMES A STRIPS) DAY strip Blood-Gluco 2020-06 Yes Change NPI: 183 se Sensor 0-11 sensor [id number] (DEXCOM G6 00:00: every 10 SENSOR) 00 days,Dx: Marcie E11.65 Blood-Gluco 2020-06 Yes Use Daily N PI:183 se 0-11 , Dx: [id number] Meter,Teodora 00:00: E11.65 nuous 00 (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) Misc Blood-Gluco 2020-06 Yes Change NPI: 183 se 0-11 transmitte [id number] Transmitter 00:00: r every 90 (DEXCOM G6 00 days, Dx: TRANSMITTER E11.65 ) Marcie Blood-Gluco 2020-06 Yes Change NPI: 183 se Sensor 0-11 sensor [id number] (DEXCOM G6 00:00: every 10 SENSOR) 00 days,Dx: Marcie E11.65 Blood-Gluco 2020-06 Yes Use Daily N PI:183 se 0-11 , Dx: [id number] Meter,Teodora 00:00: E11.65 nuous 00 (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) Misc Blood-Gluco 2020-06 Yes Change NPI: 183 se 0-11 transmitte [id number] Transmitter 00:00: r every 90 (DEXCOM G6 00 days, Dx: TRANSMITTER E11.65 ) Marcie Blood-Gluco 2021-1 Yes Change NPI: 183 se Sensor 0-11 sensor [id number] (DEXCOM G6 00:00: every 10 SENSOR) 00 days,Dx: Marcie E11.65 Blood-Gluco 202-1 Yes Use Daily N PI:183 se 0-11 , Dx: [id number] Meter,Teodora 00:00: E11.65 nuous 00 (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) Misc Blood-Gluco 2021-1 Yes Change NPI: 183 se 0-11 transmitte [id number] Transmitter 00:00: r every 90 (DEXCOM G6 00 days, Dx: TRANSMITTER E11.65 ) Marcie Blood-Gluco 2021-1 Yes Change NPI: 183 se Sensor 0-11 sensor [id number] (DEXCOM G6 00:00: every 10 SENSOR) 00 days,Dx: Marcie E11.65 Blood-Gluco 2021-1 Yes Use Daily N PI:183 se 0-11 , Dx: [id number] Meter,Teodora 00:00: E11.65 nuous 00 (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) Misc Blood-Gluco 2021-1 Yes Change NPI: 183 se 0-11 transmitte [id number] Transmitter 00:00: r every 90 (DEXCOM G6 days, Dx: TRANSMITTER E11.65 ) Marcie Blood-Gluco 2021-1 Yes Change NPI: 183 se Sensor 0-11 sensor [id number] (DEXCOM G6 00:00: every 10 SENSOR) 00 days,Dx: Marcie E11.65 Blood-Gluco 2021-1 Yes Use Daily N PI:183 se 0-11 , Dx: [id number] Meter,Teodora 00:00: E11.65 nuous 00 (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) Misc Blood-Gluco 2021-1 Yes Change NPI: 183 se 0-11 transmitte [id number] Transmitter 00:00: r every 90 (DEXCOM G6 days, Dx: TRANSMITTER E11.65 ) Marcie Blood-Gluco 2021-1 Yes Change NPI: 183 se Sensor 0-11 sensor [id number] (DEXCOM G6 00:00: every 10 SENSOR) 00 days,Dx: Marcie E11.65 Blood-Gluco 2021-1 Yes Use Daily N PI:183 se 0-11 , Dx: [id number] Meter,Teodora 00:00: E11.65 nuous 00 (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) Misc Blood-Gluco 2021-1 Yes Change NPI: 183 se 0-11 transmitte [id number] Transmitter 00:00: r every 90 (DEXCOM G6 00 days, Dx: TRANSMITTER E11.65 ) Marcie Blood-Gluco 2021-1 Yes Change NPI: 183 se Sensor 0-11 sensor [id number] (DEXCOM G6 00:00: every 10 SENSOR) 00 days,Dx: Marcie E11.65 Blood-Gluco 202-1 Yes Use Daily N PI:183 se 0-11 , Dx: [id number] Meter,Teodora 00:00: E11.65 nuous 00 (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) Misc Blood-Gluco 202-1 Yes Change NPI: 183 se 0-11 transmitte [id number] Transmitter 00:00: r every 90 (DEXCOM G6 00 days, Dx: TRANSMITTER E11.65 ) Marcie Blood-Gluco 202-1 Yes Change NPI: 183 se Sensor 0-11 sensor [id number] (DEXCOM G6 00:00: every 10 SENSOR) 00 days,Dx: Marcie E11.65 Blood-Gluco 202-1 Yes Use Daily N PI:183 se 0-11 , Dx: [id number] Meter,Teodora 00:00: E11.65 nuous 00 (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 semaglutide 2021-0 Yes 1.2mg inject 1.2 NPI:183 (OZEMPIC 7-27 mg under [id number] SC) 00:00: the skin 00 weekly. semaglutide 2021-0 Yes 1.2mg inject 1.2 NPI:183 (OZEMPIC 7-27 mg under [id number] SC) 00:00: the skin 00 weekly. semaglutide 2021-0 Yes 1.2mg inject 1.2 NPI:183 (OZEMPIC 7-27 mg under [id number] SC) 00:00: the skin 00 weekly. semaglutide 2021-0 Yes 1.2mg inject 1.2 NPI:183 (OZEMPIC 7-27 mg under [id number] SC) 00:00: the skin 00 weekly. semaglutide 2021-0 Yes 1.2mg inject 1.2 NPI:183 (OZEMPIC 7-27 mg under 8354089 SC) 00:00: the skin 00 weekly. semaglutide 2021-0 Yes 1.2mg inject 1.2 NPI:183 (OZEMPIC 7-27 mg under [id number] SC) 00:00: the skin 00 weekly. semaglutide 2021-0 Yes 1.2mg inject 1.2 NPI:183 (OZEMPIC 7-27 mg under [id number] SC) 00:00: the skin 00 weekly. methocarbam 1-0 Yes [id number] 750mg Take 1 NPI:183 oL 750 mg 7-11 tablet [place] 23636 81 tablet 00:00: mouth 4 00 (four) times daily. methocarbam 1-0 Yes [id number] 750mg Take 1 NPI:183 oL 750 mg 7-11 tablet [place] 85564 81 tablet 00:00: mouth 4 00 (four) times daily. methocarbam 1-0 Yes [id number] 750mg Take 1 NPI:183 oL 750 mg 7-11 [place] [id number] 81 tablet 00:00: mouth 4 00 (four) times daily. methocarbam 1-0 Yes [id number] 750mg Take 1 NPI:183 oL 750 mg 7-11 tablet [place] [id number] 81 tablet 00:00: mouth 4 00 (four) times daily. methocarbam 1-0 Yes [id number] 750mg Take 1 NPI:183 oL 750 mg 7-11 [place] 13679 81 tablet 00:00: mouth 4 00 (four) times daily. methocarbam 2021-0 Yes [id number] 750mg Take 1 NPI:183 oL 750 mg 7-11 tablet [place] [id number] 81 tablet 00:00: mouth 4 00 (four) times daily. methocarbam 1-0 Yes [id number] 750mg Take 1 NPI:183 oL 750 mg 7-11 [place] 69684 81 tablet 00:00: mouth 4 00 (four) times daily. methocarbam 1-0 Yes [id number] 750mg Take 1 NPI:183 oL 750 mg 7-11 [place] 86880 81 tablet 00:00: mouth 4 00 (four) times daily. etodolac 2020-0 Yes NPI:183 500 mg 6-28 [id number] tablet 00:00: 00 etodolac 2021-0 Yes NPI:183 500 mg 6-28 [id number] tablet 00:00: 00 etodolac 2021-0 Yes NPI:183 500 mg 6-28 [id number] tablet 00:00: 00 etodolac 2021-0 Yes NPI:183 500 mg 6-28 [id number] tablet 00:00: 00 etodolac 2021-0 Yes NPI:183 500 mg 6-28 [id number] tablet 00:00: 00 etodolac 202-0 Yes NPI:183 500 mg 6-28 [id number] tablet 00:00: 00 etodolac 2021-0 Yes NPI:183 500 mg 6-28 [id number] tablet 00:00: 00 etodolac 2021-0 Yes NPI:183 500 mg 6-28 [id number] tablet 00:00: 00 GABAPENTIN 2021-0 Yes [id number] TAKE 1 N PI:183 100 mg 5-24 CAPSULE 3 [id number] capsule 00:00: TIMES A 00 DAY GABAPENTIN 2021-0 Yes [id number] TAKE 1 N PI:183 100 mg 5-24 CAPSULE 3 [id number] capsule 00:00: TIMES A 00 DAY GABAPENTIN 2021-0 Yes [id number] TAKE 1 N PI:183 100 mg 5-24 CAPSULE 3 [id number] capsule 00:00: TIMES A 00 DAY GABAPENTIN 2021-0 Yes [id number] TAKE 1 N PI:183 100 mg 5-24 CAPSULE 3 [id number] capsule 00:00: TIMES A 00 DAY GABAPENTIN 2021-0 Yes [id number] TAKE 1 N PI:183 100 mg 5-24 CAPSULE 3 [id number] capsule 00:00: TIMES A 00 DAY GABAPENTIN 2021-0 Yes [id number] TAKE 1 N PI:183 100 mg 5-24 CAPSULE 3 [id number] capsule 00:00: TIMES A 00 DAY GABAPENTIN 2021-0 Yes [id number] TAKE 1 N PI:183 100 mg 5-24 CAPSULE 3 [id number] capsule 00:00: TIMES A 00 DAY GABAPENTIN 2021-0 Yes [id number] TAKE 1 N PI:183 100 mg 5-24 CAPSULE 3 [id number] capsule 00:00: TIMES A 00 DAY ACCU-CHEK 2019- Yes Use to NPI:18 3 GUIDE 1-14 check [id number] GLUCOSE 00:00: glucose 3X METER Misc 00 daily. DX:E11.65 ACCU-CHEK 2019- Yes Use to NPI:18 3 GUIDE -14 check [id number] GLUCOSE 00:00: glucose 3X METER Misc 00 daily. DX:E11.65 ACCU-CHEK 2019- Yes Use to NPI:18 3 GUIDE 14 check [id number] GLUCOSE 00:00: glucose 3X METER Misc 00 daily. DX:E11.65 ACCU-CHEK 2019- Yes Use to NPI:18 3 GUIDE 14 check [id number] GLUCOSE 00:00: glucose 3X METER Misc 00 daily. DX:E11.65 ACCU-CHEK 2019- Yes Use to NPI:18 3 GUIDE 14 check [id number] GLUCOSE 00:00: glucose 3X METER Misc 00 daily. DX:E11.65 ACCU-CHEK 2019- Yes Use to NPI:18 3 GUIDE 14 check [id number] GLUCOSE 00:00: glucose 3X METER Misc 00 daily. DX:E11.65 ACCU-CHEK 2019- Yes Use to NPI:18 3 GUIDE 14 check [id number] GLUCOSE 00:00: glucose 3X METER Misc 00 daily. DX:E11.65 ACCU-CHEK 2019- Yes Use to NPI:18 3 GUIDE 14 check [id number] GLUCOSE 00:00: glucose 3X METER Misc 00 daily. DX:E11.65 Immunizations Ordered Immunization Filled Immunization Date Status Commen ts Source Name Name SARS-COV-2 COVID-19 2020-09-06 Completed NPI:1 [id number] PFIZER VACCINE 00:00:00 SARS-COV-2 COVID-19 2020-09-06 Completed NPI:1 [id number] PFIZER VACCINE 00:00:00 SARS-COV-2 COVID-19 2020-09-06 Completed NPI:1 [id number] PFIZER VACCINE 00:00:00 SARS-COV-2 COVID-19 2020-09-06 Completed NPI:1 [id number] PFIZER VACCINE 00:00:00 SARS-COV-2 COVID-19 2020-09-06 Completed NPI:1 [id number] PFIZER VACCINE 00:00:00 SARS-COV-2 COVID-19 2020-09-06 Completed NPI:1 [id number] PFIZER VACCINE 00:00:00 SARS-COV-2 COVID-19 2020-09-06 Completed NPI:1 [id number] PFIZER VACCINE 00:00:00 SARS-COV-2 COVID-19 2020-09-06 Completed NPI:1 [id number] PFIZER VACCINE 00:00:00 SARS-COV-2 COVID-19 2020-08-16 Completed NPI:1 [id number] PFIZER VACCINE 00:00:00 SARS-COV-2 COVID-19 2020-08-16 Completed NPI:1 [id number] PFIZER VACCINE 00:00:00 SARS-COV-2 COVID-19 2020-08-16 Completed NPI:1 [id number] PFIZER VACCINE 00:00:00 SARS-COV-2 COVID-19 2020-08-16 Completed NPI:1 [id number] PFIZER VACCINE 00:00:00 SARS-COV-2 COVID-19 2020-08-16 Completed NPI:1 [id number] PFIZER VACCINE 00:00:00 SARS-COV-2 COVID-19 2020-08-16 Completed NPI:1 [id number] PFIZER VACCINE 00:00:00 SARS-COV-2 COVID-19 2020-08-16 Completed NPI:1 [id number] PFIZER VACCINE 00:00:00 SARS-COV-2 COVID-19 2020-08-16 Completed NPI:1 [id number] PFIZER VACCINE 00:00:00 Influenza Virus 2020-03-21 Completed NPI:[id number] Vaccine Recomb Quad 00:00:00 IM, Preserv and ABX Free 18-64 YRS Influenza Virus 2020-03-21 Completed NPI:[id number] Vaccine 00:00:00 Influenza Virus 2020-03-21 Completed NPI:[id number] Vaccine Recomb Quad 00:00:00 IM, Preserv and ABX Free 18-64 YRS Influenza Virus 2020-03-21 Completed NPI:[id number] Vaccine 00:00:00 Influenza Virus 2020-03-21 Completed NPI:[id number] Vaccine Recomb Quad 00:00:00 IM, Preserv and ABX Free 18-64 YRS Influenza Virus 2020-03-21 Completed NPI:[id number] Vaccine 00:00:00 Influenza Virus 2020-03-21 Completed NPI:[id number] 56504 Vaccine Recomb Quad 00:00:00 IM, Preserv and ABX Free 18-64 YRS Influenza Virus 2020-03-21 Completed NPI:[id number] 61702 Vaccine 00:00:00 Influenza Virus 2020-03-21 Completed NPI:[id number] 36884 Vaccine Recomb Quad 00:00:00 IM, Preserv and ABX Free 18-64 YRS Influenza Virus 2020-03-21 Completed NPI:21499 79644 Vaccine 00:00:00 Influenza Virus 2020-03-21 Completed NPI:[id number] 70464 Vaccine Recomb Quad 00:00:00 IM, Preserv and ABX Free 18-64 YRS Influenza Virus 2020-03-21 Completed NPI:[id number] 11066 Vaccine 00:00:00 Influenza Virus 2020-03-21 Completed NPI:[id number] 84414 Vaccine Recomb Quad 00:00:00 IM, Preserv and ABX Free 18-64 YRS Influenza Virus 2020-03-21 Completed NPI:67676 77762 Vaccine 00:00:00 Influenza Virus 2020-03-21 Completed NPI:[id number] 97456 Vaccine Recomb Quad 00:00:00 IM, Preserv and ABX Free 18-64 YRS Influenza Virus 2020-03-21 Completed NPI:[id number] 81512 Vaccine 00:00:00 TDAP 2019-04-26 Completed 00:00:00 Influenza Virus 2019-04-26 Completed NPI:[id number] 31333 Vaccine Quad .5 mL 00:00:00 IM 6+ MO Pneumococcal 2019-04-26 Completed NPI:[id number] 81 Polysaccharide, 00:00:00 PPSV23 (PNEUMOVAX) Influenza Virus 2019-04-26 Completed NPI:[id number] 60172 Vaccine Quad IM 3+ 00:00:00 YRS TDAP 2019-04-26 Completed 00:00:00 Influenza Virus 2019-04-26 Completed NPI:[id number] 01834 Vaccine Quad .5 mL 00:00:00 IM 6+ MO Pneumococcal 2019-04-26 Completed NPI:[id number] 81 Polysaccharide, 00:00:00 PPSV23 (PNEUMOVAX) Influenza Virus 2019-04-26 Completed NPI:[id number] 26482 Vaccine Quad IM 3+ 00:00:00 YRS TDAP 2019-04-26 Completed 00:00:00 Influenza Virus 2019-04-26 Completed NPI:[id number] 58632 Vaccine Quad .5 mL 00:00:00 IM 6+ MO Pneumococcal 2019-04-26 Completed NPI:[id number] 81 Polysaccharide, 00:00:00 PPSV23 (PNEUMOVAX) Influenza Virus 2019-04-26 Completed NPI:[id number] 36048 Vaccine Quad IM 3+ 00:00:00 YRS TDAP 2019-04-26 Completed 00:00:00 Influenza Virus 2019-04-26 Completed NPI:[id number] 74777 Vaccine Quad .5 mL 00:00:00 IM 6+ MO Pneumococcal 2019-04-26 Completed NPI:[id number] 81 Polysaccharide, 00:00:00 PPSV23 (PNEUMOVAX) Influenza Virus 2019-04-26 Completed NPI:[id number] 62289 Vaccine Quad IM 3+ 00:00:00 YRS TDAP 2019-04-26 Completed 00:00:00 Influenza Virus 2019-04-26 Completed NPI:[id number] Vaccine Quad .5 mL 00:00:00 IM 6+ MO Pneumococcal 2019-04-26 Completed NPI:[id number] 81 Polysaccharide, 00:00:00 PPSV23 (PNEUMOVAX) Influenza Virus 2019-04-26 Completed NPI:[id number] 11856 Vaccine Quad IM 3+ 00:00:00 YRS TDAP 2019-04-26 Completed 00:00:00 Influenza Virus 2019-04-26 Completed NPI:[id number] 57252 Vaccine Quad .5 mL 00:00:00 IM 6+ MO Pneumococcal 2019-04-26 Completed NPI:[id number] 81 Polysaccharide, 00:00:00 PPSV23 (PNEUMOVAX) Influenza Virus 2019-04-26 Completed NPI:[id number] 42831 Vaccine Quad IM 3+ 00:00:00 YRS TDAP 2019-04-26 Completed 00:00:00 Influenza Virus 2019-04-26 Completed NPI:78648 39729 Vaccine Quad .5 mL 00:00:00 IM 6+ MO Pneumococcal 2019-04-26 Completed NPI:[id number] 81 Polysaccharide, 00:00:00 PPSV23 (PNEUMOVAX) Influenza Virus 2019-04-26 Completed NPI:[id number] 84500 Vaccine Quad IM 3+ 00:00:00 YRS TDAP 2019-04-26 Completed 00:00:00 Influenza Virus 2019-04-26 Completed NPI:[id number] 54385 Vaccine Quad .5 mL 00:00:00 IM 6+ MO Pneumococcal 2019-04-26 Completed NPI:[id number] 81 Polysaccharide, 00:00:00 PPSV23 (PNEUMOVAX) Influenza Virus 2019-04-26 Completed NPI:76814 83137 Vaccine Quad IM 3+ 00:00:00 YRS Influenza Virus 2019-04-19 Completed NPI:[id number] 12861 Vaccine 00:00:00 Influenza Virus 2019-04-19 Completed NPI:38035 80502 Vaccine 00:00:00 Influenza Virus 2019-04-19 Completed NPI:16285 87356 Vaccine 00:00:00 Influenza Virus 2019-04-19 Completed NPI:94929 46692 Vaccine 00:00:00 Influenza Virus 2019-04-19 Completed NPI:87508 28893 Vaccine 00:00:00 Influenza Virus 2019-04-19 Completed NPI:95764 07783 Vaccine 00:00:00 Influenza Virus 2019-04-19 Completed NPI:65548 68051 Vaccine 00:00:00 Influenza Virus 2019-04-19 Completed NPI:70008 65768 Vaccine 00:00:00 Influenza Virus 2018-04-12 Completed NPI:50403 53651 Vaccine Quad .5 mL 00:00:00 IM 6+ MO Influenza Virus 2018-04-12 Completed NPI:18657 35776 Vaccine Quad IM 3+ 00:00:00 YRS Influenza Virus 2018-04-12 Completed NPI:49207 85045 Vaccine Quad .5 mL 00:00:00 IM 6+ MO Influenza Virus 2018-04-12 Completed NPI:40852 00094 Vaccine Quad IM 3+ 00:00:00 YRS Influenza Virus 2018-04-12 Completed NPI:70964 62371 Vaccine Quad .5 mL 00:00:00 IM 6+ MO Influenza Virus 2018-04-12 Completed NPI:94479 73373 Vaccine Quad IM 3+ 00:00:00 YRS Influenza Virus 2018-04-12 Completed NPI:36684 76339 Vaccine Quad .5 mL 00:00:00 IM 6+ MO Influenza Virus 2018-04-12 Completed NPI:46572 97151 Vaccine Quad IM 3+ 00:00:00 YRS Influenza Virus 2018-04-12 Completed NPI:97838 27336 Vaccine Quad .5 mL 00:00:00 IM 6+ MO Influenza Virus 2018-04-12 Completed NPI:22855 11719 Vaccine Quad IM 3+ 00:00:00 YRS Influenza Virus 2018-04-12 Completed NPI:64688 43520 Vaccine Quad .5 mL 00:00:00 IM 6+ MO Influenza Virus 2018-04-12 Completed NPI:14751 81300 Vaccine Quad IM 3+ 00:00:00 YRS Influenza Virus 2018-04-12 Completed NPI:40232 63342 Vaccine Quad .5 mL 00:00:00 IM 6+ MO Influenza Virus 2018-04-12 Completed NPI:90389 24028 Vaccine Quad IM 3+ 00:00:00 YRS Influenza Virus 2018-04-12 Completed NPI:14923 14611 Vaccine Quad .5 mL 00:00:00 IM 6+ MO Influenza Virus 2018-04-12 Completed NPI:79637 95596 Vaccine Quad IM 3+ 00:00:00 YRS Vital Signs Vital Name Observation Time Observation Value Comments Source Systolic blood pressure 2021-09-15 21:03:00 132 mm[Hg] Diastolic blood 2021-09-15 21:03:00 81 mm[Hg] NPI:1 [id number] pressure Heart rate 2021-09-15 21:02:00 85 /min NPI:1831 [id number] Body weight 2021-09-15 21:02:00 149.551 kg NPI:[id number] BMI 2021-09-15 21:02:00 40.13 kg/m2 NPI:1831 [id number] Oxygen saturation in 2021-09-15 21:02:00 96 /min Arterial blood by Pulse oximetry Procedures Procedure Date / Time Performed Performing Clinician Formerly [facility] e POCT HEMOGLOBIN A1C TEST 2021-09-15 21:05:00 Neelima Rodriguez NPI :[id number] Encounters Start End Encounter Admission Attending Care Care Encounter Source Date/Time Date/Time Type Type Clinicians Facility Department ID 2022-01-12 2022-01-12 Outpatient R KOTA [facility] [id number] NPI:183 15:30:00 15:30:00 NEELIMA [id number] 2021-10-20 2021-10-[address] [facility] [id number] NPI:183 00:00:00 00:00:00 Secure Msg [facility] [id number] [facility] [id number] [place] [phone] [place] [address] [facility] 2021-10-19 2021-10-19 [facility] [id number] NPI:183 00:00:00 00:00:00 [facility] [id number] 13 [id number] [facility] [place] [id number] [place]?BLE[place] [phone] [place] [address] MED[facility] 2021-10-13 2021-10-[address] [facility] [id number] NPI:183 00:00:00 00:00:00 [facility] [id number] [facility] [id number] [place] [phone] [facility] [place] [address] [facility] 2021-10-05 2021-10-[address] [facility] [id number] NPI:183 00:00:00 00:00:00 Secure Msg [facility] [id number] [facility] [id number] [place] [phone] [facility] [place] [address] [facility] 2021-09-20 2021-09-[address] [facility] [id number] NPI:183 00:00:00 00:00:00 [facility] [id number] [place] [id number] [facility] [phone] [facility] 220 BUILDING 2021-09-16 2021-09-[address] [facility] [id number] NPI:183 00:00:00 00:00:00 Secure Msg Neelima [facility] [id number] [place] [id number] [place] [phone] [place] [facility] 2021-09-15 2021-09-[address] [facility] 1.2.840.114 [id number] NPI:183 16:00:00 16:48:56 Visit [facility] [id number] 13 [id number] [place] [id number] [place] [phone] [facility] 2021-09-15 2021-09-15 Outpatient R KOTA [facility] [id number] NPI:183 16:00:00 16:48:56 NEELIMA [id number] 1 2020-12-26 2020-12-26 Outpatient [facility] 100 [id number] Sharri 00:00:00 00:00:00 Seybol d 2020-12-24 2020-12-24 Outpatient [facility] 100 [id number] Sharri 00:00:00 00:00:00 Seybol d 2020-04-03 2020-04-[address] [facility] [id number] 00:00:00 00:00:00 Neelima [place] [id number] [place] [id number] [facility] [phone] [address] 2020-02-06 2020-02-[address] [facility] [id number] 13:55:45 14:59:00 Visit Neelima [place] [id number] [place] [id number] [facility] [phone] [address] Results Test Description Test Time Test Comments Results Result Comments Source POCT HEMOGLOBIN A1C TEST 2021-09-15 21:08:00 Test Item Value Reference Range Interpretation Comme nts POCT HBA1C (test code = 4548-4) 8.5 % 4-6 A Lab Interpretation (test code = 07534-6) Abnormal NPI:[id number] HEMOGLOBIN A1C [id number] 21:08:00 Test Item Value Reference Range Interpretation Comments POCT HBA1C (test code = 4548-4) 8.5 % 4-6 A Lab Interpretation (test code = Abnormal 20319-3)
[2021-10-23] MEDS ORDERED: HYDROCODONE/APAP 5/325 MG TAB ONE (19:31)
[2021-10-23 19:36] LABS: Urine Blood Negative (Negative); Urine Glucose 3+ (Negative); Urine Protein 1+ (Negative); Urine Specific Gravity 1.015 (1.005-1.030)
[2021-10-23 19:55] LABS: Absolute Lymphocytes (CBC) 1.8 K/uL (0.7-4.9); Hematocrit 47.3 % (39.6-49.0); Lymphocytes % 20.4 % (15.3-44.8); MPV 9.2 fL (7.6-11.3); RBC Red Blood Cell Count 5.36 M/uL (4.33-5.43)
[2021-10-23 19:59] LABS: Protime INR 0.94
--- NOTE | 2021-10-23 20:04 | RAD REPORT ---
EXAM DESCRIPTION: RAD - Foot Left 3 View - 10/23/2021 7:48 pm CLINICAL HISTORY: Left Foot pain FINDINGS: No fracture or dislocation is seen. No bony destructive lesions seen .
[2021-10-23 20:20] LABS: ALT/SGPT 43 U/L (12-78); Alkaline Phosphatase 120 U/L (45-117); BUN Blood Urea Nitrogen 22 mg/dL (7-18); Bicarbonate 25 mmol/L (21-32); Bilirubin Total 0.4 mg/dL (0.2-1.0); Glucose Level 215 mg/dL (74-106); Protein, Total 7.8 g/dL (6.4-8.2); Sodium Level 138 mmol/L (136-145)
[2021-10-23 20:21] LABS: AST/SGOT 37 U/L (15-37); Albumin 3.6 g/dL (3.4-5.0); Bilirubin Direct < 0.1 mg/dL (0-0.2)
--- NOTE | 2021-10-23 21:41 | ER ---
Nurse's Notes [facility] Name: Adalid Chaves Jr Age: 51 yrs Sex: Male : 1970 Arrival Date: 10/23/2021 Time: 18:40 Bed 8 Private MD: Diagnosis: Type 2 diabetes mellitus with foot ulcer-Left 2nd toe Presentation: 10/23 18:51 Chief complaint: Patient states: swollen and painful 2nd toe on left foot, is diabetic iw , whole foot is in pain now, noticed it a bout a week ago. Coronavirus screen: At this time, the client does not indicate any symptoms associated with coronavirus-19. Ebola Screen: Patient negative for fever greater than or equal to 101.5 degrees Fahrenheit, and additional compatible Ebola Virus Disease symptoms Patient denies exposure to infectious person. Patient denies travel to an Ebola-affected area in the 21 days before illness onset. No symptoms or risks identified at this time. Initial Sepsis Screen: Does the patient meet any 2 criteria? No. Patient's initial sepsis screen is negative. Does the patient have a suspected source of infection? No. Patient's initial sepsis screen is negative. Risk Assessment: Do you want to hurt yourself or someone else? Patient reports no desire to harm self or others. Onset of symptoms was October 18, 2021. 18:51 Method Of Arrival: Ambulatory iw 18:51 Acuity: YENNY 3 iw Historical: - Allergies: 18:52 No Known Allergies; iw - PMHx: 18:52 Diabetes - IDDM; Hypertension; low iron; iw - PSHx: 18:52 left knee; iw - Immunization history:: Client reports receiving the 2nd dose of the Covid vaccine. - Social history:: Smoking status: Patient denies any tobacco usage or history of. Screenin:32 Abuse screen: Denies threats or abuse. Denies injuries from another. Nutritional tw5 screening: No deficits noted. Tuberculosis screening: No symptoms or risk factors identified. Fall Risk No fall in past 12 months (0 pts). Assessment: 19:28 General: Reports "It just hurts when I walk.". Pain: Complains of pain in plantar tw5 aspect of left second toe Pain currently is 6 out of 10 on a pain scale. Neuro: No deficits noted. Cardiovascular: No deficits noted. Respiratory: No deficits noted. GI: No deficits noted. : Urine is cloudy. 19:28 Derm: Wound noted plantar aspect of left second toe. tw5 20:37 Reassessment: Patient and/or family updated on plan of care and expected duration. Pain sm5 level reassessed. Patient states feeling better. 21:20 Reassessment: No changes from previously documented assessment. Patient and/or family sm5 updated on plan of care and expected duration. Pain level reassessed. 22:25 Reassessment: No changes from previously documented assessment. pt given print out of sm5 lab results and radiologist reading of xray per pt's request. Vital Signs: 18:51 BP 120 / 73; Pulse 96; Resp 16; Temp 96.9; Pulse Ox 98% ; Weight 149.69 kg; Height 6 iw ft. 4 in. (193.04 cm); Pain 6/10; 19:34 Pulse 88; Resp 18; Pulse Ox 97% on R/A; Pain 7/10; tw5 19:35 BP 124 / 60; tw5 20:30 BP 126 / 67; Pulse 72; Resp 18; Pulse Ox 96% on R/A; sm5 21:30 BP 113 / 57; Pulse 74; Resp 19; Pulse Ox 99% on R/A; sm5 21:30 BP 108 / 73; Pulse 68; Resp 18; Pulse Ox 99% on R/A; sm5 18:51 Body Mass Index 40.17 (149.69 kg, 193.04 cm) iw ED Course: 18:40 Patient arrived in ED. ds1 18:52 Triage completed. iw 18:53 Arm band placed on. iw 18:55 Kavin Mon, DIANA is Primary Nurse. bp 19:00 Herbert Bolaños MD is Attending Physician. mh7 19:32 Patient has correct armband on for positive identification. Placed in gown. Bed in low tw5 position. Call light in reach. Side rails up X 1. Pulse ox on. NIBP on. Door closed. Noise minimized. Moved to private room. Warm blanket given. Verbal reassurance given. 19:32 Initial lab(s) drawn, by me, sent to lab. Urine collected:. Inserted saline lock: 20 tw5 gauge in right forearm, using aseptic technique. Blood collected. 19:35 Blood Culture Adult (2) Sent. tw5 19:35 LFT's Sent. tw5 19:35 Basic Metabolic Panel Sent. tw5 19:35 Protime (+inr) Sent. tw5 19:35 Ptt, Activated Sent. tw 19:35 CBC with Diff Sent. tw5 19:50 Foot Left 3 View XRAY In Process Unspecified. EDMS 21:39 Erick Skelton DPM is Referral Physician. [facility] Administered Medications: 19:34 Drug: [place] (HYDROcodone-acetaminophen) 5 mg-325 mg 1 tabs Route: PO; tw5 21:45 Follow up: Response: Pain is decreased sm5 21:44 Drug: Bactrim (trimethoprim-sulfamethoxazole) (160 mg-800 mg (DS) 1 tablet Route: PO; sm5 22:26 Follow up: Response: No adverse reaction sm5 21:44 Drug: KeFLEX (cephalexin) 500 mg Route: PO; sm5 22:26 Follow up: Response: No adverse reaction sm5 21:45 Drug: NS 0.9% 1000 ml Route: IV; Rate: 1000 ml; Site: right forearm; sm5 22:26 Follow up: IV Status: Completed infusion; IV Intake: 1000ml 5 Intake: 22:26 IV: 1000ml; Total: 1000ml. [facility] Outcome: 21:40 Discharge ordered by . [facility] 22:27 Patient left the ED. [facility] Signatures: Dispatcher [employer] EDLA Janey Castro ds1 Alyx Martinez, RN Kavin Grewal RN Herbert Geiger MD MD [facility] [place] Millard tw5 Coleen Martines RN RN 5 Corrections: (The following items were deleted from the chart) 19:33 19:32 Inserted saline lock: 20 gauge in right Blood collected. tw5 tw5 19:52 19:35 COVID 19 CPL+MR.LABMansiCHRISTIETobin drawn and sent. tw5 EDMS
--- NOTE | 2021-10-23 21:41 | EDPHYS ---
Physician Documentation [facility] Name: Adalid Chaves Jr Age: 51 yrs Sex: Male : 1970 Arrival Date: 10/23/2021 Time: 18:40 Bed 8 Private MD: ED Physician Herbert Bolaños HPI: 10/23 19:14 This 51 yrs old Male presents to ER via Ambulatory with complaints of Toe Pain.mh7 19:14 The patient presents with pain, that is acute. The complaints affect the left foot. mh7 Context: The problem was sustained at an unknown location, resulted from an unknown cause, Mechanism of Injury: Unknown the patient can fully bear weight, the patient is able to ambulate, without difficulty. Onset: The symptoms/episode began/occurred 1 week(s) ago, and became worse yesterday. Modifying factors: The symptoms are alleviated by nothing, the symptoms are aggravated by nothing. Associated signs and symptoms: Pertinent negatives: calf tenderness, fever, nausea, numbness, rash, swelling, tingling, vomiting, warmth, weakness. Severity of symptoms: At their worst the symptoms were moderate, 3 day(s) ago, in the emergency department the symptoms are unchanged. Historical: - Allergies: 18:52 No Known Allergies; iw - PMHx: 18:52 Diabetes - IDDM; Hypertension; low iron; iw - PSHx: 18:52 left knee; iw - Immunization history:: Client reports receiving the 2nd dose of the Covid vaccine. - Social history:: Smoking status: Patient denies any tobacco usage or history of. ROS: 19:14 Constitutional: Negative for fever, chills, and weight loss, Eyes: Negative for injury, mh7 pain, redness, and discharge, ENT: Negative for injury, pain, and discharge, Neck: Negative for injury, pain, and swelling, Cardiovascular: Negative for chest pain, palpitations, and edema, Respiratory: Negative for shortness of breath, cough, wheezing, and pleuritic chest pain, Abdomen/GI: Negative for abdominal pain, nausea, vomiting, diarrhea, and constipation, Back: Negative for injury and pain, : Negative for injury, bleeding, discharge, and swelling, Neuro: Negative for headache, weakness, numbness, tingling, and seizure, Psych: Negative for depression, anxiety, suicide ideation, homicidal ideation, and hallucinations, Allergy/Immunology: Negative for hives, rash, and allergies, Endocrine: Negative for neck swelling, polydipsia, polyuria, polyphagia, and marked weight changes, Hematologic/Lymphatic: Negative for swollen nodes, abnormal bleeding, and unusual bruising. Exam: 19:14 Constitutional: This is a well developed, well nourished patient who is awake, alert, mh7 and in no acute distress. Head/Face: Normocephalic, atraumatic. Eyes: Pupils equal round and reactive to light, extra-ocular motions intact. Lids and lashes normal. Conjunctiva and sclera are non-icteric and not injected. Cornea within normal limits. Periorbital areas with no swelling, redness, or edema. Neck: Trachea midline, no thyromegaly or masses palpated, and no cervical lymphadenopathy. Supple, full range of motion without nuchal rigidity, or vertebral point tenderness. No Meningismus. Chest/axilla: Normal chest wall appearance and motion. Nontender with no deformity. No lesions are appreciated. Cardiovascular: Regular rate and rhythm with a normal S1 and S2. No gallops, murmurs, or rubs. Normal PMI, no JVD. No pulse deficits. Respiratory: Lungs have equal breath sounds bilaterally, clear to auscultation and percussion. No rales, rhonchi or wheezes noted. No increased work of breathing, no retractions or nasal flaring. Abdomen/GI: Soft, non-tender, with normal bowel sounds. No distension or tympany. No guarding or rebound. No evidence of tenderness throughout. Back: No spinal tenderness. No costovertebral tenderness. Full range of motion. Neuro: Awake and alert, GCS 15, oriented to person, place, time, and situation. Cranial nerves II-XII grossly intact. Motor strength 5/5 in all extremities. Sensory grossly intact. Cerebellar exam normal. Normal gait. Psych: Awake, alert, with orientation to person, place and time. Behavior, mood, and affect are within normal limits. 19:14 Skin: Warm, dry with normal turgor. Normal color with no rashes, no lesions, and no mh7 evidence of cellulitis. 19:14 Musculoskeletal/extremity: Extremities: noted in the plantar aspect of left second toe: mh7 erythema, pain, ulceration, ROM: intact in all extremities, Circulation is intact in all extremities. Sensation intact. Compartment Syndrome exam of affected extremity: is normal. no numbness, no tingling, no sensation deficit, no palor, no weak pulses, Joints: All joints appear normal with full range of motion. Weight bearing: able to fully bear weight, without difficulty, Tendon exam: specific tendon testing normal through active and passive range of motion DVT Exam: no swelling, no tenderness, negative Homans' sign noted on exam, no appreciated bluish discoloration, no erythema, no increased warmth, Calves: are non-tender, have equal circumference. Vital Signs: 18:51 BP 120 / 73; Pulse 96; Resp 16; Temp 96.9; Pulse Ox 98% ; Weight 149.69 kg; Height 6 iw ft. 4 in. (193.04 cm); Pain 6/10; 19:34 Pulse 88; Resp 18; Pulse Ox 97% on R/A; Pain 7/10; tw5 19:35 BP 124 / 60; tw5 20:30 BP 126 / 67; Pulse 72; Resp 18; Pulse Ox 96% on R/A; sm5 21:30 BP 113 / 57; Pulse 74; Resp 19; Pulse Ox 99% on R/A; sm5 21:30 BP 108 / 73; Pulse 68; Resp 18; Pulse Ox 99% on R/A; sm5 18:51 Body Mass Index 40.17 (149.69 kg, 193.04 cm) iw MDM: 21:38 Differential diagnosis: fracture, sprain, foreign body, penetrating trauma, arthritis, 7 gout, cellulitis, toe ulcer. Data reviewed: vital signs, nurses notes, lab test result(s), CBC, electrolytes, urinalysis, radiologic studies, plain films. Data interpreted: Pulse oximetry: on room air is 97 %. Interpretation: normal. 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 Response to treatment: the patient's symptoms have markedly improved after treatment. 21:40 Patient medically screened. [facility] 10/23 19:14 Order name: CBC with Diff; Complete Time: 20:09 [facility] 10/23 19:14 Order name: Basic Metabolic Panel; Complete Time: 20:49 [facility] 10/23 19:14 Order name: Protime (+inr); Complete Time: 20:09 [facility] 10/23 19:14 Order name: Ptt, Activated; Complete Time: 20:09 [facility] 10/23 19:14 Order name: LFT's; Complete Time: 20:49 [facility] 10/23 19:14 Order name: Blood Culture Adult (2) [facility] 10/23 19:14 Order name: Foot Left 3 View XRAY; Complete Time: 20:09 [facility] 10/23 19:35 Order name: Lactate; Complete Time: 20:18 [facility] 10/23 19:35 Order name: Procalcitonin; Complete Time: 21:27 [facility] 10/23 19:36 Order name: Urine Dipstick-Ancillary; Complete Time: 19:37 [facility] 10/23 19:52 Order name: SARS-COV-2 RT PCR; Complete Time: 20:49 [facility] 10/23 19:14 Order name: Urine Dipstick-Ancillary (obtain specimen); Complete Time: 19:35 [facility] 10/23 19:14 Order name: Saline Lock; Complete Time: 19:35 [facility] Administered Medications: 19:34 Drug: [place] (HYDROcodone-acetaminophen) 5 mg-325 mg 1 tabs Route: PO; tw5 21:45 Follow up: Response: Pain is decreased sm5 21:44 Drug: Bactrim (trimethoprim-sulfamethoxazole) (160 mg-800 mg (DS) 1 tablet Route: PO; sm5 22:26 Follow up: Response: No adverse reaction sm5 21:44 Drug: KeFLEX (cephalexin) 500 mg Route: PO; sm5 22:26 Follow up: Response: No adverse reaction sm5 21:45 Drug: NS 0.9% 1000 ml Route: IV; Rate: 1000 ml; Site: right forearm; sm5 22:26 Follow up: IV Status: Completed infusion; IV Intake: 1000ml 5 Disposition Summary: 10/23/21 21:40 Discharge Ordered Location: Home [facility] Problem: an ongoing problem [facility] Symptoms: have improved [facility] Condition: Stable [facility] Diagnosis - Type 2 diabetes mellitus with foot ulcer - Left 2nd toe [facility] Followup: [facility] - With: Private Physician - When: 1 - 2 days - Reason: Worsening of condition, Recheck today's complaints, Continuance of care, Re-evaluation by your physician Followup: [facility] - With: Erick Skelton DPM - When: 1 - 2 days - Reason: Worsening of condition, Recheck today's complaints Discharge Instructions: - Discharge Summary Sheet [facility] - Diabetes Mellitus and Foot Care [facility] - Foot Pain [facility] - Foot Care, Adult [facility] Forms: - Medication Reconciliation Form [facility] - Thank You Letter [facility] - Antibiotic Education [facility] - Prescription Opioid Use [facility] Prescriptions: - Cephalexin 500 mg Oral Capsule - take 1 capsule by ORAL route every 6 hours for 10 days; 40 capsule; Refills: 0, [facility] Product Selection Permitted - Ibuprofen 600 mg Oral Tablet - take 1 tablet by ORAL route every 8 hours As needed take with food; 15 tablet; [facility] Refills: 0, Product Selection Permitted - Bactrim DS 800-160 mg Oral Tablet - take 1 tablet by ORAL route every 12 hours for 10 days; 20 tablet; Refills: 0, [facility] Product Selection Permitted - Tylenol-Codeine #3 300 mg-30 mg Oral - take 2 tablet by ORAL route every 6 hours As needed; 15 tablet; Refills: 0, [facility] Product Selection Permitted Signatures: Dispatcher [employer] Alyx Gregory, DIANA RN iw Georgi Bob, EMBOSSING CLERK-C EMBOSSING CLERK-Cla1 Herbert Bolaños MD MD 7 Virginia Millard 5 Coleen Martines RN RN sm5 Corrections: (The following items were deleted from the chart) 19:52 19:27 COVID 19 CPL+BRZ ordered. [facility] EDMS
[2021-10-23] MEDS ORDERED: NA CHLORIDE 0.9% 1,000 ML ONE (21:45)
[2021-10-23] MEDS ORDERED: CEPHALEXIN 250 MG CAP ONE (21:45)
[2021-10-23] MEDS ORDERED: SMZ./TMP. 800/160 MG TABLET ONE (21:45)
[2021-10-24 00:35] VITALS: TEMP 96.9
[2021-10-24 00:43] VITALS: BP 108/73; O2SAT 99
== END 2021-10-23 22:27 | disposition home or self-care (01) ==
LOC: ER 18:39
DX: E11.621 Type 2 diabetes mellitus with foot ulcer (principal); Z20.822 Contact with and (suspected) exposure to COVID-19; I10 Essential (primary) hypertension
CPT/HCPCS: 87040 ×2; 85025; 80048; 36415; 85610; 80076; 83605; 85730; 81003; 84145; 73630; 96360; 99284; U0003; J7030

== ENCOUNTER 2022-07-25 14:07 | Inpatient (IN) | payer OTHER ==
--- OUTSIDE RECORDS SUMMARY | 2022-07-25 14:22 | XMS REPORT | Continuity of Care Document ---
:1970 Author Organization [facility] t Address [address] [place] [address] Care Team Providers Name Role Phone Ross Dow Primary Care Physician MIRNA FERNANDEZ Attending Clinician Unavailable LUAN MEJIA Attending Clinician Unavailable NEELIMA ESCUDERO Attending Clinician Unavailable Neelima Escudero MD Attending Clinician Doctor Unassigned, [place] Attending Clinician Unavailable Sol Araujo Attending Clinician Unknown, Attending Attending Clinician Unavailable UNKNOWN, ATTENDING Attending Clinician Unavailable SOL DE ANDA Attending Clinician Unavailable Brandie Giron Attending Clinician Mirna Fernandez MD Attending Clinician Only, Adc Test Attending Clinician Unavailable DAX KING Attending Clinician Unavailable TWIN SEYMOUR Attending Clinician Unavailable YANI LAZARO Attending Clinician Unavailable MIRNA FERNANDEZ Admitting Clinician Unavailable LUAN MEJIA Admitting Clinician Unavailable Mirna Fernandez MD Admitting Clinician Payers Payer Name Policy Type Policy Number Effective Date Expiration Date [facility] [id number] 2018 PPO 00:00:00 [facility] 3 [id number] 2020 00:00:00 Problems Condition Condition Condition Status Onset Resolution Last Treating Co mments Source Name Details Category Date Date Treatment Clinician Date Iron Iron Disease Active Univers deficiency deficiency 7-29 it y of anemia, anemia, 00:00: [place] unspecifie unspecifie 00 Me dical d iron d iron 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 Obesity Obesity Disease Active Univers (BMI (BMI 7-29 ity of 30-39.9) 30-39.9) 00:00: [place] 00 Medical Branch Acute Acute Disease Active [facility] blood loss blood loss 7-29 it y of anemia anemia 00:00: [place] [facility] Morbid Morbid Disease Active [facility] obesity, obesity, 6-05 ity of unspecifie unspecifie 00:00: [place] obesity d obesity 00 Medi jada type type Branch 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 3-30 ity of 00:00: [place] 00 Medical Branch Dyslipidem Dyslipidem Disease Active 2015-06 U newers ia ia 2-06 ity of 00:00: [place] 00 Medical Branch Neuropathy Neuropathy Disease Active 2015-06 U nivers 2-06 ity of 00:00: [place] [facility] Type 2 Type 2 Disease Active Univers diabetes, diabetes, 9 ity of uncontroll uncontroll 00:00: Joselito munguia ed, with ed, with 00 Medica l neuropathy neuropathy Br anch Essential Essential Disease Active Uni vers hypertensi hypertensi 02-23 it y of on on 00:00: [place] [facility] HLD HLD Disease Active Univers (hyperlipi (hyperlipi 02-23 it y of demia) demia) 00:00: [place] [address] Medical Branch Allergies, Adverse Reactions, Alerts Allergy Allergy Status Severity Reaction(s) Onset Inactive Treating Comm ents Source Name Type Date Date Clinician NO KNOWN Drug Active Univers ALLERGIE Class ity of [facility] Social History Social Habit Start Date Stop Date Quantity Comments Source History SDOH University o f Alcohol Frequency [place] [facility] History SDWV University o f Alcohol Std [place] Medical Drinks Branch History SDWV University o f Alcohol Binge [place] [facility] Exposure to 2022-04-10 2022-04-20 Not sure [facility] SARS-CoV-2 00:00:00 07:49:00 [facility] (event) Branch Alcohol intake 2021-05-21 2021-05-21 Current drinker Unive rsity of 00:00:00 00:00:00 of alcohol [facility] (finding) [place] Alcohol Comment 2020-12-28 2020-12-28 social Universit y of 00:00:00 00:00:00 [facility] Tobacco use and 2020-06-17 2020-06-17 Smokeless tobacco Un iversity of exposure 00:00:00 00:00:[address] [facility] Sex [birth year] [employer] 00:00:00 00:00:00 Hospital Smoking Status Start Date Stop Date Source Tobacco smoking consumption [facility] unknown Never smoked tobacco [facility] Medications Ordered Filled Start Stop Current Ordering Indication Dosage Frequency Signature Comments Components Source Medication Medication Date Date Medication? Clinician (SIG) Name Name lisinopriL- Yes [id number] TAKE 1 Univers hydrochloro 1-29 TABLET ity of thiazide 00:00: TWICE A [place] 20-12.5 mg 00 DAY Medical per tablet Branch HUMULIN R 0 Yes Inject Univer s U-500, 1-23 90-100 ity of CONC, 00:00: units [place] KWIKPEN 500 00 under the Med ical unit/mL (3 skin at Branch mL) InPn breakfast, THEN 100-110 units with lunch, THEN 80-100 units at dinner Dx E11.40 Max dose 310 units daily. HUMULIN R 0 Yes Inject Univer s U-500, 1-23 90-100 ity of CONC, 00:00: units [place] KWIKPEN 500 00 under the Med ical unit/mL (3 skin at Branch mL) InPn breakfast, THEN 100-110 units with lunch, THEN 80-100 units at dinner Dx E11.40 Max dose 310 units daily. HUMULIN R 0 Yes Inject Univer s U-500, 1-23 90-100 ity of CONC, 00:00: units [place] KWIKPEN 500 00 under the Med ical unit/mL (3 skin at Branch mL) InPn breakfast, THEN 100-110 units with lunch, THEN 80-100 units at dinner Dx E11.40 Max dose 310 units daily. insulin Yes [id number] Inject Uni vers regular hum -04 90-100 ity of U-500 conc 00:00: units at [place] 500 unit/mL 00 breakfast, Me dical (3 mL) InPn 100-110 Branc h units with lunch and 80-100 units at dinner Dx E11.40 insulin 0 Yes [id number] Inject Uni vers regular hum 06-23 90-100 ity of U-500 conc 00:00: units [place] 500 unit/mL 00 under the Med ical (3 mL) InPn skin at Branc h breakfast, THEN 100-110 units with lunch, THEN 80-100 units at dinner Dx E11.40 Insulin Yes Use 3 [facility] [place], 1-04 times ity of Disposable, 00:00: daily with [place] (BD INSULIN 00 insulin. Medi jada PEN NEEDLE Dx E11.65 Bran ch UF) 31 gauge x 5/16" Ndle Insulin Yes Use 3 [facility] [place], 1-04 times ity of Disposable, 00:00: daily with [place] (BD INSULIN 00 insulin. Medi jada PEN NEEDLE Dx E11.65 Bran ch UF) 31 gauge x 5/16" Ndle Insulin 0 Yes Use 3 [facility] [place], 1-04 times ity of Disposable, 00:00: daily with [place] (BD INSULIN 00 insulin. Medi jada PEN NEEDLE Dx E11.65 Bran ch UF) 31 gauge x 5/16" Ndle Insulin 0 Yes Use 3 [facility] [place], 1-04 times ity of Disposable, 00:00: daily with [place] (BD INSULIN 00 insulin. Medi jada PEN NEEDLE Dx E11.65 Bran ch UF) 31 gauge x 5/16" Ndle insulin 0 2022- No [id number] Inject Un beth regular hum 06-23 90-100 ity o f U-500 conc 00:00: 00:00 units [place] 500 unit/mL 00 :00 under the Med ical (3 mL) InPn skin at Branc h breakfast, THEN 100-110 units with lunch, THEN 80-100 units at dinner Dx E11.40 insulin 0 2023- No [id number] Inject Un beth regular hum 06-23-04 90-100 ity o f U-500 conc 00:00: 00:00 units [place] 500 unit/mL 00 :00 under the Med ical (3 mL) InPn skin at Branc h breakfast, THEN 100-110 units with lunch, THEN 80-100 units at dinner Dx E11.40 insulin 2021-06 Yes [id number] Inject Uni vers regular 2-24 90-100 ity of human 00:00: units at [place] (HUMULIN R) 00 breakfast, Me dical 500 unit/mL 100-110 Branc h injection units with lunch and 80-100 units at dinner Dx E11.40 insulin 2021-06 Yes [id number] Inject Uni vers regular 2-24 90-100 ity of human 00:00: units at [place] (HUMULIN R) 00 breakfast, Me dical 500 unit/mL 100-110 Branc h injection units with lunch and 80-100 units at dinner Dx E11.40 insulin 2021-06 Yes [id number] Inject Uni vers regular 2-24 90-100 ity of human 00:00: units at [place] (HUMULIN R) 00 breakfast, Me dical 500 unit/mL 100-110 Branc h injection units with lunch and 80-100 units at dinner Dx E11.40 insulin 2021-06 Yes [id number] Inject Uni vers regular 2-24 90-100 ity of human 00:00: units at [place] (HUMULIN R) 00 breakfast, Me dical 500 unit/mL 100-110 Branc h injection units with lunch and 80-100 units at dinner Dx E11.40 insulin 2021-06 Yes [id number] Inject Uni vers regular 2-24 90-100 ity of human 00:00: units at [place] (HUMULIN R) 00 breakfast, Me dical 500 unit/mL 100-110 Branc h injection units with lunch and 80-100 units at dinner Dx E11.40 insulin 2021-06- No [id number] Inject Un beth regular 2-24 - 90-100 ity of human 00:00: 00:00 units at [place] (HUMULIN R) 00 :00 breakfast, Me dical 500 unit/mL 100-110 Branc h injection units with lunch and 80-100 units at dinner Dx E11.40 insulin 2021-06- No [id number] Inject Un beth regular 2-24 01-04 90-100 ity of human 00:00: 00:00 units at [place] (HUMULIN R) 00 :00 breakfast, Me dical 500 unit/mL 100-110 Branc h injection units with lunch and 80-100 units at dinner Dx E11.40 insulin 2021-06 Yes [id number] Inject Uni vers regular 2-20 90-100 ity of human 00:00: units at [place] (HUMULIN R) 00 breakfast, Me dical 500 unit/mL 100-110 Branc h injection units with lunch and 80-100 units at dinner Dx E11.40 insulin 2021-06 Yes [id number] Inject Uni vers regular 2-20 90-100 ity of human 00:00: units at [place] (HUMULIN R) 00 breakfast, Me dical 500 unit/mL 100-110 Branc h injection units with lunch and 80-100 units at dinner Dx E11.40 insulin 2021-06 Yes [id number] Inject Uni vers regular 2-20 90-100 ity of human 00:00: units at [place] (HUMULIN R) 00 breakfast, Me dical 500 unit/mL 100-110 Branc h injection units with lunch and 80-100 units at dinner Dx E11.40 insulin 2021-06 Yes [id number] Inject Uni vers regular 2-15 90-100 ity of human 00:00: units at [place] (HUMULIN R) 00 breakfast, Me dical 500 unit/mL 100-110 Branc h injection units with lunch and 80-100 units at dinner Dx E11.40 Insulin 2021-06 Yes Use 3 [facility] [place], 2-15 times ity of Disposable, 00:00: daily with [place] (BD INSULIN 00 insulin. Medi jada PEN NEEDLE Dx E11.65 Bran ch UF) 31 gauge x 5/16" Ndle insulin 2021-06 Yes [id number] 1{appli 1 Un beth U-500 2-15 cator} Applicator ity of syringe-nee 00:00: 3 (three) [place] ([place] 00 times Medical INSULIN daily with Branch SYRINGE meals. Use U-500) 1/2 to mL 31 gauge administer x 15/64" U-500 Syrg insulin three times a day. Dx. E11.40 Insulin 2021-06 Yes Use 3 [facility] [place], 2-15 times ity of Disposable, 00:00: daily with [place] (BD INSULIN 00 insulin. Medi jada PEN NEEDLE Dx E11.65 Bran UF) 31 gauge x 5/16" Ndle insulin 2021-06 Yes [id number] 1{appli 1 Un beth U-500 2-15 cator} Applicator ity of syringe-nee 00:00: 3 (three) [place] ([place] 00 times Medical INSULIN daily with Branch SYRINGE meals. Use U-500) 1/2 to mL 31 gauge administer x 15/64" U-500 Syrg insulin three times a day. Dx. E11.40 Insulin 2021-06 Yes Use 3 [facility] [place], 2-15 times ity of Disposable, 00:00: daily with [place] (BD INSULIN 00 insulin. Medi jada PEN NEEDLE Dx E11.65 Bran UF) 31 gauge x 5/16" Ndle insulin 2021-06 Yes [id number] 1{appli 1 Un beth U-500 2-15 cator} Applicator ity of syringe-nee 00:00: 3 (three) [place] ([place] 00 times Medical INSULIN daily with Branch SYRINGE meals. Use U-500) 1/2 to mL 31 gauge administer x 15/64" U-500 Syrg insulin three times a day. Dx. E11.40 Insulin 2021-06 Yes Use 3 [facility] [place], 2-15 times ity of Disposable, 00:00: daily with [place] (BD INSULIN 00 insulin. Medi jada PEN NEEDLE Dx E11.65 Bran UF) 31 gauge x 5/16" Ndle insulin 2021-06 Yes [id number] 1{appli 1 Un beth U-500 2-15 cator} Applicator ity of syringe-nee 00:00: 3 (three) [place] ([place] 00 times Medical INSULIN daily with Branch SYRINGE meals. Use U-500) 1/2 to mL 31 gauge administer x 15/64" U-500 Syrg insulin three times a day. Dx. E11.40 Insulin 2021-06 Yes Use 3 [facility] [place], 2-15 times ity of Disposable, 00:00: daily with [place] (BD INSULIN 00 insulin. Medi jada PEN NEEDLE Dx E11.65 Bran UF) 31 gauge x 5/16" Ndle insulin 2021-06 Yes [id number] 1{appli 1 Un beth U-500 2-15 cator} Applicator ity of syringe-nee 00:00: 3 (three) [place] ([place] 00 times Medical INSULIN daily with Branch SYRINGE meals. Use U-500) 1/2 to mL 31 gauge administer x 15/64" U-500 Syrg insulin three times a day. Dx. E11.40 Insulin 2021-06 Yes Use 3 [facility] [place], 2-15 times ity of Disposable, 00:00: daily with [place] (BD INSULIN 00 insulin. Medi jada PEN NEEDLE Dx E11.65 Bran ch UF) 31 gauge x 5/16" Ndle insulin 2021-06 Yes [id number] 1{appli 1 Un beth U-500 2-15 cator} Applicator ity of syringe-nee 00:00: 3 (three) [place] (BD 00 times Medical INSULIN daily with Branch SYRINGE meals. Use U-500) 1/2 to mL 31 gauge administer x 15/64" U-500 Syrg insulin three times a day. Dx. E11.40 Insulin 2021-06 Yes Use 3 [facility] [place], 2-15 times ity of Disposable, 00:00: daily with [place] (BD INSULIN 00 insulin. Medi jada PEN NEEDLE Dx E11.65 Bran ch UF) 31 gauge x 5/16" Ndle insulin 2021-06 Yes [id number] 1{appli 1 Un beth U-500 2-15 cator} Applicator ity of syringe-nee 00:00: 3 (three) [place] ([place] 00 times Medical INSULIN daily with Branch SYRINGE meals. Use U-500) 1/2 to mL 31 gauge administer x 15/64" U-500 Syrg insulin three times a day. Dx. E11.40 Insulin 2021-06 Yes Use 3 [facility] [place], 2-15 times ity of Disposable, 00:00: daily with [place] (BD INSULIN 00 insulin. Medi jada PEN NEEDLE Dx E11.65 Bran ch UF) 31 gauge x 5/16" Ndle insulin 2021-06 Yes [id number] 1{appli 1 Un beth U-500 2-15 cator} Applicator ity of syringe-nee 00:00: 3 (three) [place] ([place] 00 times Medical INSULIN daily with Branch SYRINGE meals. Use U-500) 1/2 to mL 31 gauge administer x 15/64" U-500 Syrg insulin three times a day. Dx. E11.40 Insulin 2021-06 Yes Use 3 [facility] [place], 2-15 times ity of Disposable, 00:00: daily with [place] (BD INSULIN 00 insulin. Medi jada PEN NEEDLE Dx E11.65 Bran UF) 31 gauge x 5/16" Ndle insulin 2021-06 Yes [id number] 1{appli 1 Un beth U-500 2-15 cator} Applicator ity of syringe-nee 00:00: 3 (three) [place] ([place] 00 times Medical INSULIN daily with Branch SYRINGE meals. Use U-500) 1/2 to mL 31 gauge administer x 15/64" U-500 Syrg insulin three times a day. Dx. E11.40 Insulin 2021-06 Yes Use 3 [facility] [place], 2-15 times ity of Disposable, 00:00: daily with [place] (BD INSULIN 00 insulin. Medi jada PEN NEEDLE Dx E11.65 [facility] UF) 31 gauge x 5/16" Ndle insulin 2021-06 Yes [id number] 1{appli 1 Un beth U-500 2-15 cator} Applicator ity of syringe-nee 00:00: 3 (three) [place] (BD 00 times Medical INSULIN daily with Branch SYRINGE meals. Use U-500) 1/2 to mL 31 gauge administer x 15/64" U-500 Syrg insulin three times a day. Dx. E11.40 Insulin 2021-06 Yes Use 3 [facility] [place], 2-15 times ity of Disposable, 00:00: daily with [place] (BD INSULIN 00 insulin. Medi jada PEN NEEDLE Dx E11.65 [facility] UF) 31 gauge x 5/16" Ndle insulin 2021-06 Yes [id number] 1{appli 1 Un beth U-500 2-15 cator} Applicator ity of syringe-nee 00:00: 3 (three) [place] (BD 00 times Medical INSULIN daily with Branch SYRINGE meals. Use U-500) 1/2 to mL 31 gauge administer x 15/64" U-500 Syrg insulin three times a day. Dx. E11.40 insulin 2021-06 Yes [id number] 1{appli 1 Un beth U-500 2-15 cator} Applicator ity of syringe-nee 00:00: 3 (three) [place] (BD 00 times Medical INSULIN daily with Branch SYRINGE meals. Use U-500) 1/2 to mL 31 gauge administer x 15/64" U-500 Syrg insulin three times a day. Dx. E11.40 insulin 2021-06 Yes [id number] 1{appli 1 Un beth U-500 2-15 cator} Applicator ity of syringe-nee 00:00: 3 (three) [place] ([place] 00 times Medical INSULIN daily with Branch SYRINGE meals. Use U-500) 1/2 to mL 31 gauge administer x 15/64" U-500 Syrg insulin three times a day. Dx. E11.40 insulin 2021-06 Yes [id number] 1{appli 1 Un beth U-500 2-15 cator} Applicator ity of syringe-nee 00:00: 3 (three) [place] ([place] 00 times Medical INSULIN daily with Branch SYRINGE meals. Use U-500) 1/2 to mL 31 gauge administer x 15/64" U-500 Syrg insulin three times a day. Dx. E11.40 insulin 2021-06 Yes [id number] 1{appli 1 Un beth U-500 2-15 cator} Applicator ity of syringe-nee 00:00: 3 (three) [place] ([place] 00 times Medical INSULIN daily with Branch SYRINGE meals. Use U-500) 1/2 to mL 31 gauge administer x 15/64" U-500 Syrg insulin three times a day. Dx. E11.40 Insulin 2021-06- Use 3 [facility] [place], 2-15 01-04 times ity of Disposable, 00:00: 00:00 daily with [place] (BD INSULIN 00 :00 insulin. Medi jada PEN NEEDLE Dx E11.65 Bran ch UF) 31 gauge x 5/16" Ndle insulin 2021-06- No [id number] Inject Un beth regular 2-15 12-20 90-100 ity of human 00:00: 00:00 units at [place] (HUMULIN R) 00 :00 breakfast, Me dical 500 unit/mL 100-110 Branc h injection units with lunch and 80-100 units at dinner Dx E11.40 GABAPENTIN 2- Yes TAKE 1 Unive rs 100 mg 2-11 CAPSULE 3 ity of capsule 00:00: TIMES A Medical Branch GABAPENTIN 2022-1 Yes TAKE 1 Unive rs 100 mg 2-11 CAPSULE 3 ity of capsule 00:00: TIMES A Medical Branch GABAPENTIN 2-1 Yes TAKE 1 Unive rs 100 mg 2-11 CAPSULE 3 ity of capsule 00:00: TIMES A Medical Branch GABAPENTIN 2022-1 Yes TAKE 1 Unive rs 100 mg 2-11 CAPSULE 3 ity of capsule 00:00: TIMES A Medical Branch GABAPENTIN 2022-1 Yes TAKE 1 Unive rs 100 mg 2-11 CAPSULE 3 ity of capsule 00:00: TIMES A Medical Branch GABAPENTIN 2022-1 Yes TAKE 1 Unive rs 100 mg 2-11 CAPSULE 3 ity of capsule 00:00: TIMES A Medical Branch GABAPENTIN 2-1 Yes TAKE 1 Unive rs 100 mg 2-11 CAPSULE 3 ity of capsule 00:00: TIMES A Medical Branch GABAPENTIN 2022-1 Yes TAKE 1 Unive rs 100 mg 2-11 CAPSULE 3 ity of capsule 00:00: TIMES A Medical Branch GABAPENTIN 2022-1 Yes TAKE 1 Unive rs 100 mg 2-11 CAPSULE 3 ity of capsule 00:00: TIMES A Medical Branch GABAPENTIN 2-1 Yes TAKE 1 Unive rs 100 mg 2-11 CAPSULE 3 ity of capsule 00:00: TIMES A Medical Branch GABAPENTIN 2-1 Yes TAKE 1 Unive rs 100 mg 2-11 CAPSULE 3 ity of capsule 00:00: TIMES A Medical Branch GABAPENTIN 2022-1 Yes TAKE 1 Unive rs 100 mg 2-11 CAPSULE 3 ity of capsule 00:00: TIMES A Medical Branch GABAPENTIN 2022-1 Yes TAKE 1 Unive rs 100 mg 2-11 CAPSULE 3 ity of capsule 00:00: TIMES A Medical Branch GABAPENTIN 2022-1 Yes TAKE 1 Unive rs 100 mg 2-11 CAPSULE 3 ity of capsule 00:00: TIMES A Medical Branch GABAPENTIN 2022-1 Yes TAKE 1 Unive rs 100 mg 2-11 CAPSULE 3 ity of capsule 00:00: TIMES A [place] 00 DAY Medical Branch simvastatin 2021-06 Yes [id number] 20mg Take 1 Univers 20 mg 1-01 tablet by ity of tablet 00:00: mouth at [place] 00 bedtime. [facility] Branch insulin 2021-06 Yes [id number] 1{appli 1 Un beth U-500 1- cator} Applicator ity of syringe-nee 00:00: 3 (three) [place] ([place] 00 times Medical INSULIN daily with Branch SYRINGE meals. Use U-500) 1/2 to mL 31 gauge administer x 15/64" U-500 Syrg insulin three times a day. Dx. E11.40 lisinopriL- 2021-06 Yes [id number] TAKE 1 Univers hydrochloro 1-01 TABLET ity of thiazide 00:00: TWICE A [place] 20-12.5 mg 00 DAY Medical per tablet Branch insulin 2021-06 Yes [id number] Inject Uni vers regular 1-01 90-100 ity of human 00:00: units at [place] (HUMULIN R) 00 breakfast, Me dical 500 unit/mL 100-110 Branc h injection units with lunch and 80-100 units at dinner Dx E11.40 simvastatin 2021-06 Yes [id number] 20mg Take 1 Univers 20 mg 1-01 tablet by ity of tablet 00:00: mouth at [place] 00 bedtime. [facility] Branch insulin 2021-06 Yes [id number] 1{appli 1 Un beth U-500 06-20 cator} Applicator ity of syringe-nee 00:00: 3 (three) [place] ([place] 00 times Medical INSULIN daily with Branch SYRINGE meals. Use U-500) 1/2 to mL 31 gauge administer x 15/64" U-500 Syrg insulin three times a day. Dx. E11.40 lisinopriL- 2021-06 Yes [id number] TAKE 1 Univers hydrochloro 1-01 TABLET ity of thiazide 00:00: TWICE A [place] 20-12.5 mg 00 DAY Medical per tablet Branch insulin 2021-06 Yes [id number] Inject Uni vers regular 1-01 90-100 ity of human 00:00: units at [place] (HUMULIN R) 00 breakfast, Me dical 500 unit/mL 100-110 Branc h injection units with lunch and 80-100 units at dinner Dx E11.40 simvastatin 2021-06 Yes [id number] 20mg Take 1 Univers 20 mg 1-01 tablet by ity of tablet 00:00: mouth at [place] 00 bedtime. Medical Branch insulin 2021-06 Yes [id number] 1{appli 1 Un beth U-500 1- cator} Applicator ity of syringe-nee 00:00: 3 (three) [place] ([place] 00 times Medical INSULIN daily with Branch SYRINGE meals. Use U-500) 1/2 to mL 31 gauge administer x 15/64" U-500 Syrg insulin three times a day. Dx. E11.40 lisinopriL- 2021-06 Yes [id number] TAKE 1 Univers hydrochloro 1-01 TABLET ity of thiazide 00:00: TWICE A [place] 20-12.5 mg 00 DAY Medical per tablet Branch insulin 2021-06 Yes [id number] Inject Uni vers regular 1-01 90-100 ity of human 00:00: units at [place] (HUMULIN R) 00 breakfast, Me dical 500 unit/mL 100-110 Branc h injection units with lunch and 80-100 units at dinner Dx E11.40 simvastatin 2021-06 Yes [id number] 20mg Take 1 Univers 20 mg 1-01 tablet by ity of tablet 00:00: mouth at [place] 00 bedtime. Medical Branch insulin 2021-06 Yes [id number] 1{appli 1 Un beth U-500 1- cator} Applicator ity of syringe-nee 00:00: 3 (three) [place] ([place] 00 times Medical INSULIN daily with Branch SYRINGE meals. Use U-500) 1/2 to mL 31 gauge administer x 15/64" U-500 Syrg insulin three times a day. Dx. E11.40 lisinopriL- 2021-06 Yes [id number] TAKE 1 [facility] hydrochloro 1-01 TABLET ity of thiazide 00:00: TWICE A [place] 20-12.5 mg 00 DAY Medical per tablet Branch insulin 2021-06 Yes [id number] Inject Uni vers regular 1-01 90-100 ity of human 00:00: units at [place] (HUMULIN R) 00 breakfast, Me dical 500 unit/mL 100-110 Branc h injection units with lunch and 80-100 units at dinner Dx E11.40 simvastatin 2021-06 Yes [id number] 20mg Take 1 Univers 20 mg 1-01 tablet by ity of tablet 00:00: mouth at [place] 00 bedtime. Medical Branch insulin 2021-06 Yes [id number] 1{appli 1 Un beth U-500 1- cator} Applicator ity of syringe-nee 00:00: 3 (three) [place] (BD 00 times Medical INSULIN daily with Branch SYRINGE meals. Use U-500) 1/2 to mL 31 gauge administer x 15/64" U-500 Syrg insulin three times a day. Dx. E11.40 lisinopriL- 2021-06 Yes [id number] TAKE 1 Univers hydrochloro 1-01 TABLET ity of thiazide 00:00: TWICE A [place] 20-12.5 mg 00 DAY Medical per tablet Branch insulin 2021-06 Yes [id number] Inject Uni vers regular 1-01 90-100 ity of human 00:00: units at [place] (HUMULIN R) 00 breakfast, Me dical 500 unit/mL 100-110 Branc h injection units with lunch and 80-100 units at dinner Dx E11.40 simvastatin 2021-06 Yes [id number] 20mg Take 1 [facility] 20 mg 1-01 tablet by ity of tablet 00:00: mouth at [place] 00 bedtime. Medical Branch insulin 2021-06 Yes [id number] 1{appli 1 Un beth U-500 06-20 cator} Applicator ity of syringe-nee 00:00: 3 (three) [place] ([place] 00 times Medical INSULIN daily with Branch SYRINGE meals. Use U-500) 1/2 to mL 31 gauge administer x 15/64" U-500 Syrg insulin three times a day. Dx. E11.40 lisinopriL- 2021-06 Yes [id number] TAKE 1 Univers hydrochloro 1-01 TABLET ity of thiazide 00:00: TWICE A [place] 20-12.5 mg 00 DAY Medical per tablet Branch insulin 2021-06 Yes [id number] Inject Uni vers regular 1-01 90-100 ity of human 00:00: units at [place] (HUMULIN R) 00 breakfast, Me dical 500 unit/mL 100-110 Branc h injection units with lunch and 80-100 units at dinner Dx E11.40 simvastatin 2021-06 Yes [id number] 20mg Take 1 [facility] 20 mg 1-01 tablet by ity of tablet 00:00: mouth at [place] 00 bedtime. Medical Branch insulin 2021-06 Yes [id number] 1{appli 1 Un beth U-500 1- cator} Applicator ity of syringe-nee 00:00: 3 (three) [place] (BD 00 times Medical INSULIN daily with Branch SYRINGE meals. Use U-500) 1/2 to mL 31 gauge administer x 15/64" U-500 Syrg insulin three times a day. Dx. E11.40 lisinopriL- 2021-06 Yes [id number] TAKE 1 [facility] hydrochloro 1-01 TABLET ity of thiazide 00:00: TWICE A [place] 20-12.5 mg 00 DAY Medical per tablet Branch insulin 2021-06 Yes [id number] Inject Uni vers regular 1-01 90-100 ity of human 00:00: units at [place] (HUMULIN R) 00 breakfast, Me dical 500 unit/mL 100-110 Branc h injection units with lunch and 80-100 units at dinner Dx E11.40 simvastatin 2021-06 Yes [id number] 20mg Take 1 [facility] 20 mg 1-01 tablet by ity of tablet 00:00: mouth at [place] 00 bedtime. Medical Branch insulin 2021-06 Yes [id number] 1{appli 1 Un beth U-500 06-20 cator} Applicator ity of syringe-nee 00:00: 3 (three) [place] (BD 00 times Medical INSULIN daily with Branch SYRINGE meals. Use U-500) 1/2 to mL 31 gauge administer x 1564" U-500 Syrg insulin three times a day. Dx. E11.40 lisinopriL- 2021-06 Yes [id number] TAKE 1 [facility] hydrochloro 1-01 TABLET ity of thiazide 00:00: TWICE A [place] 20-12.5 mg 00 DAY Medical per tablet Branch insulin 2021-06 Yes [id number] Inject Uni vers regular 1-01 90-100 ity of human 00:00: units at [place] (HUMULIN R) 00 breakfast, Me dical 500 unit/mL 100-110 Branc h injection units with lunch and 80-100 units at dinner Dx E11.40 simvastatin 2021-06 Yes [id number] 20mg Take 1 [facility] 20 mg 1-01 tablet by ity of tablet 00:00: mouth at [place] 00 bedtime. Medical Branch lisinopriL- 2021-06 Yes [id number] TAKE 1 [facility] hydrochloro 1-01 TABLET ity of thiazide 00:00: TWICE A [place] 20-12.5 mg 00 DAY Medical per tablet Branch simvastatin 2021-06 Yes [id number] 20mg Take 1 [facility] 20 mg 1-01 tablet by ity of tablet 00:00: mouth at [place] 00 bedtime. Medical Branch lisinopriL- 2021-06 Yes [id number] TAKE 1 [facility] hydrochloro 1-01 TABLET ity of thiazide 00:00: TWICE A [place] 20-12.5 mg 00 DAY Medical per tablet Branch simvastatin 2021-06 Yes [id number] 20mg Take 1 [facility] 20 mg 1-01 tablet by ity of tablet 00:00: mouth at [place] 00 bedtime. Medical Branch lisinopriL- 2021-06 Yes [id number] TAKE 1 [facility] hydrochloro 1-01 TABLET ity of thiazide 00:00: TWICE A [place] 20-12.5 mg 00 DAY Medical per tablet Branch simvastatin 2021-06 Yes [id number] 20mg Take 1 [facility] 20 mg 1-01 tablet by ity of tablet 00:00: mouth at [place] 00 bedtime. Medical Branch lisinopriL- 2021-06 Yes [id number] TAKE 1 [facility] hydrochloro 1-01 TABLET ity of thiazide 00:00: TWICE A [place] 20-12.5 mg 00 DAY Medical per tablet Branch simvastatin 2021-06 Yes [id number] 20mg Take 1 [facility] 20 mg 1-01 tablet by ity of tablet 00:00: mouth at [place] 00 bedtime. Medical Branch lisinopriL- 2021-06 Yes [id number] TAKE 1 [facility] hydrochloro 1-01 TABLET ity of thiazide 00:00: TWICE A [place] 20-12.5 mg 00 DAY Medical per tablet Branch simvastatin 2021-06 Yes [id number] 20mg Take 1 [facility] 20 mg 1-01 tablet by ity of tablet 00:00: mouth at [place] 00 bedtime. Medical Branch lisinopriL- 2021-06 Yes [id number] TAKE 1 [facility] hydrochloro 1-01 TABLET ity of thiazide 00:00: TWICE A [place] 20-12.5 mg 00 DAY Medical per tablet Branch simvastatin 2021-06 Yes [id number] 20mg Take 1 [facility] 20 mg 1-01 tablet by ity of tablet 00:00: mouth at [place] 00 bedtime. Medical Branch lisinopriL- 2021-06 Yes [id number] TAKE 1 [facility] hydrochloro 1-01 TABLET ity of thiazide 00:00: TWICE A [place] 20-12.5 mg 00 DAY Medical per tablet Branch simvastatin 2021-06 Yes [id number] 20mg Take 1 [facility] 20 mg 1-01 tablet by ity of tablet 00:00: mouth at [place] 00 bedtime. Medical Branch lisinopriL- 2021-06 Yes [id number] TAKE 1 [facility] hydrochloro 1-01 TABLET ity of thiazide 00:00: TWICE A [place] 20-12.5 mg 00 DAY Medical per tablet Branch simvastatin 2021-06 Yes [id number] 20mg Take 1 [facility] 20 mg 1-01 tablet by ity of tablet 00:00: mouth at [place] 00 bedtime. Medical Branch lisinopriL- 2021-06 Yes [id number] TAKE 1 [facility] hydrochloro 1-01 TABLET ity of thiazide 00:00: TWICE A [place] 20-12.5 mg 00 DAY Medical per tablet Branch simvastatin 2021-06 Yes [id number] 20mg Take 1 [facility] 20 mg 1-01 tablet by ity of tablet 00:00: mouth at [place] 00 bedtime. Medical Branch lisinopriL- 2021-06 Yes [id number] TAKE 1 [facility] hydrochloro 1-01 TABLET ity of thiazide 00:00: TWICE A [place] 20-12.5 mg 00 DAY Medical per tablet Branch simvastatin 2021-06 Yes [id number] 20mg Take 1 [facility] 20 mg 1-01 tablet by ity of tablet 00:00: mouth at [place] 00 bedtime. Medical Branch lisinopriL- 2021-06 Yes [id number] TAKE 1 [facility] hydrochloro 1-01 TABLET ity of thiazide 00:00: TWICE A [place] 20-12.5 mg 00 DAY Medical per tablet Branch simvastatin 2021-06 Yes [id number] 20mg Take 1 [facility] 20 mg 1-01 tablet by ity of tablet 00:00: mouth at [place] 00 bedtime. Medical Branch lisinopriL- 2021-06 Yes [id number] TAKE 1 [facility] hydrochloro 1-01 TABLET ity of thiazide 00:00: TWICE A [place] 20-12.5 mg 00 DAY Medical per tablet Branch simvastatin 2021-06 Yes [id number] 20mg Take 1 [facility] 20 mg 1-01 tablet by ity of tablet 00:00: mouth at [place] 00 bedtime. Medical Branch lisinopriL- 2021-06 Yes [id number] TAKE 1 [facility] hydrochloro 1-01 TABLET ity of thiazide 00:00: TWICE A [place] 20-12.5 mg 00 DAY Medical per tablet Branch simvastatin 2021-06 Yes [id number] 20mg Take 1 [facility] 20 mg 1-01 tablet by ity of tablet 00:00: mouth at [place] 00 bedtime. Medical Branch lisinopriL- 2021-06 Yes [id number] TAKE 1 [facility] hydrochloro 1-01 TABLET ity of thiazide 00:00: TWICE A [place] 20-12.5 mg 00 DAY Medical per tablet Branch simvastatin 2021-06 Yes [id number] 20mg Take 1 [facility] 20 mg 1-01 tablet by ity of tablet 00:00: mouth at [place] 00 bedtime. [facility] Branch lisinopriL- 2021-06- No [id number] TAKE 1 [facility] hydrochloro 1-01 01-29 TABLET ity o f thiazide 00:00: 00:00 TWICE A [place] 20-12.5 mg 00 :00 DAY Medical per tablet [place] insulin 2021-06- No [id number] 1{appli 1 U nivers U-500 06-20 cator} Applicator ity o f syringe-nee 00:00: 00:00 3 (three) [place] dle (BD 00 :00 times Medical INSULIN daily with Branch SYRINGE meals. Use U-500) 1/2 to mL 31 gauge administer x 15/64" U-500 Syrg insulin three times a day. Dx. E11.40 insulin 2021-06- No [id number] Inject Un beth regular 06-20 90-100 ity of human 00:00: 00:00 units at [place] (HUMULIN R) 00 :00 breakfast, Me dical 500 unit/mL 100-110 Branc h injection units with lunch and 80-100 units at dinner Dx E11.40 METFORMIN 2021-06 Yes TAKE 1 Univer s 1,000 mg 0-29 TABLET ity of tablet 00:00: TWICE [place] 00 DAILY WITH Medical MEALS Branch METFORMIN 2022-1 Yes TAKE 1 Univer s 1,000 mg 0-29 TABLET ity of tablet 00:00: TWICE [place] 00 DAILY WITH Medical MEALS Branch METFORMIN 2- Yes TAKE 1 Univer s 1,000 mg 0-29 TABLET ity of tablet 00:00: TWICE [place] 00 DAILY WITH Medical MEALS Branch METFORMIN 2- Yes TAKE 1 Univer s 1,000 mg 0-29 TABLET ity of tablet 00:00: TWICE [place] 00 DAILY WITH Medical MEALS Branch METFORMIN 2021- Yes TAKE 1 Un[facility] s 1,000 mg 0-29 TABLET ity of tablet 00:00: TWICE [place] 00 DAILY WITH Medical MEALS Branch METFORMIN 2021- Yes TAKE 1 Univer s 1,000 mg 0-29 TABLET ity of tablet 00:00: TWICE 00 DAILY WITH Medical MEALS Branch METFORMIN 2021- Yes TAKE 1 Univer s 1,000 mg 0-29 TABLET ity of tablet 00:00: TWICE 00 DAILY WITH Medical MEALS Branch METFORMIN 2021- Yes TAKE 1 Univer s 1,000 mg 0-29 TABLET ity of tablet 00:00: TWICE 00 DAILY WITH Medical MEALS Branch METFORMIN 2021- Yes TAKE 1 Univer s 1,000 mg 0-29 TABLET ity of tablet 00:00: TWICE 00 DAILY WITH Medical MEALS Branch METFORMIN 2021- Yes TAKE 1 [facility] s 1,000 mg 0-29 TABLET ity of tablet 00:00: TWICE 00 DAILY WITH Medical MEALS Branch METFORMIN 2021- Yes TAKE 1 Un[facility] s 1,000 mg 0-29 TABLET ity of tablet 00:00: TWICE [place] 00 DAILY WITH Medical MEALS Branch METFORMIN 2021- Yes TAKE 1 Un[facility] s 1,000 mg 0-29 TABLET ity of tablet 00:00: TWICE [place] 00 DAILY WITH Medical MEALS Branch METFORMIN 2021- Yes TAKE 1 [facility] s 1,000 mg 0-29 TABLET ity of tablet 00:00: TWICE [place] 00 DAILY WITH Medical MEALS Branch METFORMIN 2- Yes TAKE 1 Un[facility] s 1,000 mg 0-29 TABLET ity of tablet 00:00: TWICE [place] 00 DAILY WITH Medical MEALS Branch METFORMIN 2- Yes TAKE 1 Univer s 1,000 mg 0-29 TABLET ity of tablet 00:00: TWICE [place] 00 DAILY Medical WITH MEALS Branch METFORMIN 2021- Yes TAKE 1 Univer s 1,000 mg 0-29 TABLET ity of tablet 00:00: TWICE [place] 00 DAILY WITH Medical MEALS Branch METFORMIN 2021-06 Yes TAKE 1 Univer s 1,000 mg 0-29 TABLET ity of tablet 00:00: TWICE [place] 00 DAILY WITH Medical MEALS Branch METFORMIN 2021-06 Yes TAKE 1 Univer s 1,000 mg 0-29 TABLET ity of tablet 00:00: TWICE [place] 00 DAILY WITH Medical MEALS Branch METFORMIN 2021-06 Yes TAKE 1 Un[facility] s 1,000 mg 0-29 TABLET ity of tablet 00:00: TWICE 00 DAILY WITH Medical MEALS Branch METFORMIN 2021-06 Yes TAKE 1 [facility] s 1,000 mg 0-29 TABLET ity of tablet 00:00: TWICE 00 DAILY WITH Medical MEALS Branch METFORMIN 2021-06 Yes TAKE 1 Univer s 1,000 mg 0-29 TABLET ity of tablet 00:00: TWICE [place] 00 DAILY WITH Medical MEALS Branch METFORMIN 2021-06 Yes TAKE 1 Un[facility] s 1,000 mg 0-29 TABLET ity of tablet 00:00: TWICE 00 DAILY WITH Medical MEALS Branch METFORMIN 2021-06 Yes TAKE 1 Univer s 1,000 mg 0-29 TABLET ity of tablet 00:00: TWICE 00 DAILY WITH Medical MEALS Branch METFORMIN 2021-06 Yes TAKE 1 Un[facility] s 1,000 mg 0-29 TABLET ity of tablet 00:00: TWICE 00 DAILY WITH Medical MEALS Branch VASCEPA 1 2021-06 Yes TAKE ONE Univ ers gram 0-13 CAPSULE BY ity of capsule 00:00: MOUTH [place] 00 TWICE Medical DAILY WITH Branch MORNING AND EVENING MEALS VASCEPA 1 2021-06 Yes TAKE ONE Univ ers gram 0-13 CAPSULE BY ity of capsule 00:00: MOUTH 00 TWICE Medical DAILY WITH Branch MORNING AND EVENING MEALS VASCEPA 1 2021-06 Yes TAKE ONE Univ ers gram 0-13 CAPSULE BY ity of capsule 00:00: MOUTH 00 TWICE Medical DAILY WITH Branch MORNING AND EVENING MEALS VASCEPA 1 2021-06 Yes TAKE ONE Univ ers gram 0-13 CAPSULE BY ity of capsule 00:00: MOUTH [place] 00 TWICE Medical DAILY WITH Branch MORNING AND EVENING MEALS VASCEPA 1 2021-06 Yes TAKE ONE Univ ers gram 0-13 CAPSULE BY ity of capsule 00:00: MOUTH [place] 00 TWICE Medical DAILY WITH Branch MORNING AND EVENING MEALS VASCEPA 1 2021-06 Yes TAKE ONE Univ ers gram 0-13 CAPSULE BY ity of capsule 00:00: MOUTH [place] 00 TWICE Medical DAILY WITH Branch MORNING AND EVENING MEALS VASCEPA 1 2021-06 Yes TAKE ONE Univ ers gram 0-13 CAPSULE BY ity of capsule 00:00: MOUTH 00 TWICE Medical DAILY WITH Branch MORNING AND EVENING MEALS VASCEPA 1 2021-06 Yes TAKE ONE Univ ers gram 0-13 CAPSULE BY ity of capsule 00:00: MOUTH 00 TWICE Medical DAILY WITH Branch MORNING AND EVENING MEALS VASCEPA 1 2021-06 Yes TAKE ONE Univ ers gram 0-13 CAPSULE BY ity of capsule 00:00: MOUTH 00 TWICE Medical DAILY WITH Branch MORNING AND EVENING MEALS VASCEPA 1 2021-06 Yes TAKE ONE Univ ers gram 0-13 CAPSULE BY ity of capsule 00:00: MOUTH 00 TWICE Medical DAILY WITH Branch MORNING AND EVENING MEALS VASCEPA 1 2021-06 Yes TAKE ONE Univ ers gram 0-13 CAPSULE BY ity of capsule 00:00: MOUTH 00 TWICE Medical DAILY WITH Branch MORNING AND EVENING MEALS VASCEPA 1 2021-06 Yes TAKE ONE Univ ers gram 0-13 CAPSULE BY ity of capsule 00:00: MOUTH 00 TWICE Medical DAILY WITH Branch MORNING AND EVENING MEALS VASCEPA 1 2021-06 Yes TAKE ONE Univ ers gram 0-13 CAPSULE BY ity of capsule 00:00: MOUTH 00 TWICE Medical DAILY WITH Branch MORNING AND EVENING MEALS VASCEPA 1 2021-06 Yes TAKE ONE Univ ers gram 0-13 CAPSULE BY ity of capsule 00:00: MOUTH 00 TWICE Medical DAILY WITH Branch MORNING AND EVENING MEALS VASCEPA 1 2021-06 Yes TAKE ONE Univ ers gram 0-13 CAPSULE BY ity of capsule 00:00: MOUTH 00 TWICE Medical DAILY WITH Branch MORNING AND EVENING MEALS VASCEPA 1 2021-06 Yes TAKE ONE Univ ers gram 0-13 CAPSULE BY ity of capsule 00:00: MOUTH 00 TWICE Medical DAILY WITH Branch MORNING AND EVENING MEALS VASCEPA 1 2021-06 Yes TAKE ONE Univ ers gram 0-13 CAPSULE BY ity of capsule 00:00: MOUTH 00 TWICE Medical DAILY WITH Branch MORNING AND EVENING MEALS VASCEPA 1 2021-06 Yes TAKE ONE Univ ers gram 0-13 CAPSULE BY ity of capsule 00:00: MOUTH 00 TWICE Medical DAILY WITH Branch MORNING AND EVENING MEALS VASCEPA 1 2021-06 Yes TAKE ONE Univ ers gram 0-13 CAPSULE BY ity of capsule 00:00: MOUTH 00 TWICE Medical DAILY WITH Branch MORNING AND EVENING MEALS VASCEPA 1 2021-06 Yes TAKE ONE Univ ers gram 0-13 CAPSULE BY ity of capsule 00:00: MOUTH 00 TWICE Medical DAILY WITH Branch MORNING AND EVENING MEALS VASCEPA 1 2021-06 Yes TAKE ONE Univ ers gram 0-13 CAPSULE BY ity of capsule 00:00: MOUTH 00 TWICE Medical DAILY WITH Branch MORNING AND EVENING MEALS VASCEPA 1 2021-06 Yes TAKE ONE Univ ers gram 0-13 CAPSULE BY ity of capsule 00:00: MOUTH 00 TWICE Medical DAILY WITH Branch MORNING AND EVENING MEALS VASCEPA 1 2021-06 Yes TAKE ONE Univ ers gram 0-13 CAPSULE BY ity of capsule 00:00: MOUTH 00 TWICE Medical DAILY WITH Branch MORNING AND EVENING MEALS FARXIGA 10 Yes [id number] TAKE 1 U nivers mg tablet 9-25 TABLET BY ity o f 00:00: MOUTH 00 EVERY DAY Medical Branch dapaglifloz 2021-0 Yes [id number] 10mg Take 1 Univers in 9-25 tablet by ity of (XIGA) 00:00: [place] 10 mg 00 the Medical tablet morning. Branch dapaglifloz 2-0 Yes [id number] 10mg Take 1 [facility] in 9-25 tablet by ity of (XIGA) 00:00: mouth [place] 10 mg 00 the Medical tablet morning. Branch dapaglifloz 2-0 Yes [id number] 10mg Take 1 [facility] in 9-25 tablet by ity of (FARXIGA) 00:00: mouth [place] 10 mg 00 the Medical tablet morning. Branch dapaglifloz 2-0 Yes [id number] 10mg Take 1 [facility] in 9-25 tablet by ity of (XIGA) 00:00: mouth [place] 10 mg 00 the Medical tablet morning. Branch dapaglifloz 2022-0 Yes [id number] 10mg Take 1 [facility] in 9-25 tablet by ity of (XIGA) 00:00: mouth [place] 10 mg 00 the Medical tablet morning. Branch dapaglifloz 2022-0 Yes [id number] 10mg Take 1 [facility] in 9-25 tablet by ity of () 00:00: mouth [place] 10 mg 00 the Medical tablet morning. Branch dapaglifloz 2022-0 Yes [id number] 10mg Take 1 [facility] in 9-25 tablet by ity of () 00:00: mouth [place] 10 mg 00 the Medical tablet morning. Branch dapaglifloz 2022-0 Yes [id number] 10mg Take 1 [facility] in 9-25 tablet by ity of () 00:00: mouth [place] 10 mg 00 the Medical tablet morning. Branch dapaglifloz 2022-0 Yes [id number] 10mg Take 1 [facility] in 9-25 tablet by ity of () 00:00: mouth [place] 10 mg 00 the Medical tablet morning. Branch dapaglifloz 2022-0 Yes [id number] 10mg Take 1 [facility] in 9-25 tablet by ity of () 00:00: mouth [place] 10 mg 00 the Medical tablet morning. Branch dapaglifloz 2022-0 Yes [id number] 10mg Take 1 [facility] in 9-25 tablet by ity of () 00:00: mouth [place] 10 mg 00 the Medical tablet morning. Branch dapaglifloz 2022-0 Yes [id number] 10mg Take 1 [facility] in 9-25 tablet by ity of () 00:00: mouth [place] 10 mg 00 the Medical tablet morning. Branch dapaglifloz 2022-0 Yes [id number] 10mg Take 1 [facility] in 9-25 tablet by ity of () 00:00: mouth [place] 10 mg 00 the Medical tablet morning. Branch dapaglifloz 2022-0 Yes [id number] 10mg Take 1 [facility] in 9-25 tablet by ity of () 00:00: mouth [place] 10 mg 00 the Medical tablet morning. Branch dapaglifloz 2022-0 Yes [id number] 10mg Take 1 [facility] in 9-25 tablet by ity of () 00:00: mouth [place] 10 mg 00 the Medical tablet morning. Branch dapaglifloz 2022-0 Yes [id number] 10mg Take 1 [facility] in 9-25 tablet by ity of () 00:00: mouth [place] 10 mg 00 the Medical tablet morning. Branch dapaglifloz 2022-0 Yes [id number] 10mg Take 1 [facility] in 9-25 tablet by ity of () 00:00: mouth in [place] 10 mg 00 the Medical tablet morning. Branch dapaglifloz 2022-0 Yes [id number] 10mg Take 1 [facility] in 9-25 tablet by ity of () 00:00: mouth [place] 10 mg 00 the Medical tablet morning. Branch dapaglifloz 2022-0 Yes [id number] 10mg Take 1 [facility] in 9-25 tablet by ity of () 00:00: mouth [place] 10 mg 00 the Medical tablet morning. Branch dapaglifloz 2022-0 Yes [id number] 10mg Take 1 [facility] in 9-25 tablet by ity of () 00:00: mouth [place] 10 mg 00 the Medical tablet morning. Branch dapaglifloz 2022-0 Yes [id number] 10mg Take 1 [facility] in 9-25 tablet by ity of () 00:00: mouth [place] 10 mg 00 the Medical tablet morning. Branch dapaglifloz 2022-0 Yes [id number] 10mg Take 1 Univers in 9-25 tablet by ity of () 00:00: mouth [place] 10 mg 00 the Medical tablet morning. Branch dapaglifloz 2022-0 Yes [id number] 10mg Take 1 [facility] in 9-25 tablet by ity of () 00:00: mouth [place] 10 mg 00 the Medical tablet morning. Branch dapaglifloz 2022-0 Yes [id number] 10mg Take 1 [facility] in 9-25 tablet by ity of () 00:00: mouth [place] 10 mg 00 the Medical tablet morning. Branch dapaglifloz 2022-0 Yes [id number] 10mg Take 1 [facility] in 9-25 tablet by ity of () 00:00: mouth [place] 10 mg 00 the Medical tablet morning. Branch dapaglifloz 2022-0 Yes [id number] 10mg Take 1 [facility] in 9-25 tablet by ity of () 00:00: mouth [place] 10 mg 00 the Medical tablet morning. Branch dapaglifloz 0 Yes [id number] 10mg Take 1 Univers in 03-14 tablet by ity of (FARXIGA) 00:00: mouth [place] 10 mg 00 the Medical tablet morning. Branch FARXIGA 10 0 2021- No [id number] TAKE 1 [facility] mg tablet 03-14-25 TABLET BY ity of 00:00: 00:00 MOUTH [place] 00 :00 EVERY DAY Medical Branch fenofibrate 2021-0 Yes Univer s 54 mg 9-17 ity of tablet 00:00: [place] 00 Medical Branch fenofibrate 2021-0 Yes Univer s 54 mg 9-17 ity of tablet 00:00: [place] 00 Medical Branch fenofibrate 2021-0 Yes Univer s 54 mg 9-17 ity of tablet 00:00: [place] 00 Medical Branch fenofibrate 2021-0 Yes Univer s 54 mg 9-17 ity of tablet 00:00: [place] 00 Medical Branch fenofibrate 2021-0 Yes Univer s 54 mg 9-17 ity of tablet 00:00: [place] 00 Medical Branch fenofibrate 2021-0 Yes Univer s 54 mg 9-17 ity of tablet 00:00: [place] 00 Medical Branch fenofibrate 2021-0 Yes Univer s 54 mg 9-17 ity of tablet 00:00: [place] 00 Medical Branch fenofibrate 2021-0 Yes Univer s 54 mg 9-17 ity of tablet 00:00: [place] 00 Medical Branch fenofibrate 2-0 Yes Univer s 54 mg 9-17 ity of tablet 00:00: [place] 00 Medical Branch fenofibrate 2-0 Yes Univer s 54 mg 9-17 ity of tablet 00:00: [place] 00 Medical Branch fenofibrate 2-0 Yes Univer s 54 mg 9-17 ity of tablet 00:00: [place] 00 Medical Branch fenofibrate 2-0 Yes Univer s 54 mg 9-17 ity of tablet 00:00: [place] 00 Medical Branch fenofibrate 2-0 Yes Univer s 54 mg 9-17 ity of tablet 00:00: [place] 00 Medical Branch fenofibrate 2-0 Yes Univer s 54 mg 9-17 ity of tablet 00:00: [place] 00 Medical Branch fenofibrate 2022-0 Yes Univer s 54 mg 9-17 ity of tablet 00:00: [place] 00 Medical Branch fenofibrate 2022-0 Yes Univer s 54 mg 9-17 ity of tablet 00:00: [place] 00 Medical Branch fenofibrate 2022-0 Yes Univer s 54 mg 9-17 ity of tablet 00:00: [place] 00 Medical Branch fenofibrate 2022-0 Yes Univer s 54 mg 9-17 ity of tablet 00:00: [place] 00 Medical Branch fenofibrate 2022-0 Yes Univer s 54 mg 9-17 ity of tablet 00:00: [place] 00 Medical Branch fenofibrate 2022-0 Yes Univer s 54 mg 9-17 ity of tablet 00:00: [place] 00 Medical Branch fenofibrate 2022-0 Yes Univer s 54 mg 9-17 ity of tablet 00:00: [place] 00 Medical Branch fenofibrate 2022-0 Yes Univer s 54 mg 9-17 ity of tablet 00:00: [place] 00 Medical Branch fenofibrate 2022-0 Yes Univer s 54 mg 9-17 ity of tablet 00:00: [place] 00 Medical Branch Blood-Gluco 2-0 Yes Change Univ ers se 7-27 transmitte ity of Transmitter 00:00: r every 90 [place] (DEXCOM G6 00 days, Dx: Medi 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 ) [place] Blood-Gluco 202-0 Yes Change Univ ers se Sensor 7-27 sensor ity of (DEXCOM G6 00:00: every 10 [place] SENSOR) 00 days,Dx: Medical Marcie E11.65 Branch Blood-Gluco 2-0 Yes Change [facility] ers se 7-27 transmitte ity of Transmitter 00:00: r every 90 [place] (DEXCOM G6 00 days, Dx: 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 ) [place] Blood-Gluco 2-0 Yes Change Univ ers se Sensor 7-27 sensor ity of (DEXCOM G6 00:00: every 10 [place] SENSOR) 00 days,Dx: Medical Marcie E11.65 Branch Blood-Gluco 2-0 Yes Change Univ ers se 7-27 transmitte ity of Transmitter 00:00: r every 90 [place] (DEXCOM G6 00 days, Dx: Medi 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 ) [place] Blood-Gluco 2022-0 Yes Change Univ ers se Sensor 7-27 sensor ity of (DEXCOM G6 00:00: every 10 [place] SENSOR) 00 days,Dx: Medical Marcie E11.65 Branch Blood-Gluco 2022-0 Yes Change Univ ers se 7-27 transmitte ity of Transmitter 00:00: r every 90 [place] (DEXCOM G6 00 days, Dx: Medi 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 ) [place] Blood-Gluco 2022-0 Yes Change [facility] ers se Sensor 7-27 sensor ity of (DEXCOM G6 00:00: every 10 [place] SENSOR) 00 days,Dx: Medical Marcie E11.65 Branch Blood-Gluco 2022-0 Yes Change [facility] ers se 7-27 transmitte ity of Transmitter 00:00: r every 90 [place] (DEXCOM G6 00 days, Dx: Medi 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 ) [place] Blood-Gluco 2022-0 Yes Change [facility] ers se Sensor 7-27 sensor ity of (DEXCOM G6 00:00: every 10 [place] SENSOR) 00 days,Dx: Medical [place] E11.65 Branch Blood-Gluco 2022-0 Yes Change [facility] ers se 7-27 transmitte ity of Transmitter 00:00: r every 90 [place] (DEXCOM G6 00 days, Dx: Medi 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 ) [place] Blood-Gluco 2022-0 Yes Change [facility] ers se Sensor 7-27 sensor ity of (DEXCOM G6 00:00: every 10 [place] SENSOR) 00 days,Dx: Medical [place] E11.65 Branch Blood-Gluco 2022-0 Yes Change [facility] ers se 7-27 transmitte ity of Transmitter 00:00: r every 90 [place] (DEXCOM G6 00 days, Dx: Medi 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 ) [place] Blood-Gluco 2022-0 Yes Change [facility] ers se Sensor 7-27 sensor ity of (DEXCOM G6 00:00: every 10 [place] SENSOR) 00 days,Dx: Medical [place] E11.65 Branch Blood-Gluco 2022-0 Yes Change [facility] ers se 7-27 transmitte ity of Transmitter 00:00: r every 90 [place] (DEXCOM G6 00 days, Dx: Medi 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 ) [place] Blood-Gluco 2022-0 Yes Change [facility] ers se Sensor 7-27 sensor ity of (DEXCOM G6 00:00: every 10 [place] SENSOR) 00 days,Dx: Medical Marc[place] E11.65 Branch Blood-Gluco 2022-0 Yes Change [facility] ers se 7-27 transmitte ity of Transmitter 00:00: r every 90 [place] (DEXCOM G6 00 days, Dx: Medi 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 ) [place] Blood-Gluco 2022-0 Yes Change [facility] ers se Sensor 7-27 sensor ity of (DEXCOM G6 00:00: every 10 [place] SENSOR) 00 days,Dx: Medical [place] E11.65 Branch Blood-Gluco 2022-0 Yes Change [facility] ers se 7-27 transmitte ity of Transmitter 00:00: r every 90 [place] (DEXCOM G6 00 days, Dx: Medi 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 ) [place] Blood-Gluco 2022-0 Yes Change [facility] ers se Sensor 7-27 sensor ity of (DEXCOM G6 00:00: every 10 [place] SENSOR) 00 days,Dx: Medical [place] E11.65 Branch Blood-Gluco 2022-0 Yes Change [facility] ers se 7-27 transmitte ity of Transmitter 00:00: r every 90 [place] (DEXCOM G6 00 days, Dx: Medi 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 ) [place] Blood-Gluco 2022-0 Yes Change [facility] ers se Sensor 7-27 sensor ity of (DEXCOM G6 00:00: every 10 [place] SENSOR) 00 days,Dx: Medical [place] E11.65 Branch Blood-Gluco 2022-0 Yes Change [facility] ers se 7-27 transmitte ity of Transmitter 00:00: r every 90 [place] (DEXCOM G6 00 days, Dx: Medi 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 ) [place] Blood-Gluco 2022-0 Yes Change [facility] ers se Sensor 7-27 sensor ity of (DEXCOM G6 00:00: every 10 [place] SENSOR) 00 days,Dx: Medical [place] E11.65 Branch Blood-Gluco 2022-0 Yes Change [facility] ers se 7-27 transmitte ity of Transmitter 00:00: r every 90 [place] (DEXCOM G6 00 days, Dx: Medi 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 ) [place] Blood-Gluco 2022-0 Yes Change [facility] ers se Sensor 7-27 sensor ity of (DEXCOM G6 00:00: every 10 [place] SENSOR) 00 days,Dx: Medical [place] E11.65 Branch Blood-Gluco 2022-0 Yes Change [facility] ers se 7-27 transmitte ity of Transmitter 00:00: r every 90 [place] (DEXCOM G6 00 days, Dx: Medi 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 ) [place] Blood-Gluco 2022-0 Yes Change [facility] ers se Sensor 7-27 sensor ity of (DEXCOM G6 00:00: every 10 [place] SENSOR) 00 days,Dx: Medical [place] E11.65 Branch Blood-Gluco 2022-0 Yes Change [facility] ers se 7-27 transmitte ity of Transmitter 00:00: r every 90 [place] (DEXCOM G6 00 days, Dx: Medi 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 ) [place] Blood-Gluco 2022-0 Yes Change [facility] ers se Sensor 7-27 sensor ity of (DEXCOM G6 00:00: every 10 [place] SENSOR) 00 days,Dx: Medical [place] E11.65 Branch Blood-Gluco 2022-0 Yes Change [facility] ers se 7-27 transmitte ity of Transmitter 00:00: r every 90 [place] (DEXCOM G6 00 days, Dx: Medi 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 ) [place] Blood-Gluco 2022-0 Yes Change [facility] ers se Sensor 7-27 sensor ity of (DEXCOM G6 00:00: every 10 [place] SENSOR) 00 days,Dx: Medical [place] E11.65 Branch Blood-Gluco 2022-0 Yes Change [facility] ers se 7-27 transmitte ity of Transmitter 00:00: r every 90 [place] (DEXCOM G6 00 days, Dx: Medi 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 ) [place] Blood-Gluco 2022-0 Yes Change [facility] ers se Sensor 7-27 sensor ity of (DEXCOM G6 00:00: every 10 [place] SENSOR) 00 days,Dx: Medical [place] E11.65 Branch Blood-Gluco 2022-0 Yes Change [facility] ers se 7-27 transmitte ity of Transmitter 00:00: r every 90 [place] (DEXCOM G6 00 days, Dx: Medi 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 ) [place] Blood-Gluco 2022-0 Yes Change [facility] ers se Sensor 7-27 sensor ity of (DEXCOM G6 00:00: every 10 [place] SENSOR) 00 days,Dx: Medical [place] E11.65 Branch Blood-Gluco 2022-0 Yes Change [facility] ers se 7-27 transmitte ity of Transmitter 00:00: r every 90 [place] (DEXCOM G6 00 days, Dx: Medi 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 ) [place] Blood-Gluco 2022-0 Yes Change [facility] ers se Sensor 7-27 sensor ity of (DEXCOM G6 00:00: every 10 [place] SENSOR) 00 days,Dx: Medical [facility] E11.65 Branch Blood-Gluco 2022-0 Yes [facility] se 7-27 transmitte ity of Transmitter 00:00: r every 90 [place] (DEXCOM G6 00 days, Dx: Medi 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 ) [facility] Blood-Gluco 2022-0 Yes [facility] se Sensor 7-27 sensor ity of (DEXCOM G6 00:00: every 10 [place] SENSOR) 00 days,Dx: Medical Marcie E11.65 Branch Blood-Gluco 2022-0 Yes Change [facility] se 7-27 transmitte ity of Transmitter 00:00: r every 90 [place] (DEXCOM G6 00 days, Dx: Medi 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 ) [facility] Blood-Gluco 2022-0 Yes [facility] se Sensor 7-27 sensor ity of (DEXCOM G6 00:00: every 10 [place] SENSOR) 00 days,Dx: Medical Marcie E11.65 Branch Blood-Gluco 2022-0 Yes [facility] se 7-27 transmitte ity of Transmitter 00:00: r every 90 [place] (DEXCOM G6 00 days, Dx: Medi 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 ) [facility] Blood-Gluco 2022-0 Yes [facility] se Sensor 7-27 sensor ity of (DEXCOM G6 00:00: every 10 [place] SENSOR) 00 days,Dx: Medical Marcie E11.65 Branch Blood-Gluco 2022-0 Yes [facility] se 7-27 transmitte ity of Transmitter 00:00: r every 90 [place] (DEXCOM G6 00 days, Dx: Medi 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 ) [place] Blood-Gluco 2022-0 Yes [facility] se Sensor 7-27 sensor ity of (DEXCOM G6 00:00: every 10 [place] SENSOR) 00 days,Dx: Medical Marcie E11.65 Branch Blood-Gluco 2022-0 Yes Change [facility] se 7-27 transmitte ity of Transmitter 00:00: r every 90 [place] (DEXCOM G6 00 days, Dx: Medi 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 ) [facility] Blood-Gluco 2022-0 Yes [facility] se Sensor 7-27 sensor ity of (DEXCOM G6 00:00: every 10 [place] SENSOR) 00 days,Dx: Medical Marcie E11.65 Branch Blood-Gluco 2022-0 Yes [facility] se 7-27 transmitte ity of Transmitter 00:00: r every 90 [place] (DEXCOM G6 00 days, Dx: Medi 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 ) [facility] Blood-Gluco 2022-0 Yes [facility] se Sensor 7-27 sensor ity of (DEXCOM G6 00:00: every 10 [place] SENSOR) 00 days,Dx: Medical Amrcie E11.65 Branch Blood-Gluco 2022-0 Yes [facility] se 7-27 transmitte ity of Transmitter 00:00: r every 90 [place] (DEXCOM G6 00 days, Dx: Medi 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 ) [facility] Blood-Gluco 2022-0 Yes [facility] se Sensor 7-27 sensor ity of (DEXCOM G6 00:00: every 10 [place] SENSOR) 00 days,Dx: Medical Marcie E11.65 Branch Blood-Gluco 2022-0 Yes [facility] se 7-27 transmitte ity of Transmitter 00:00: r every 90 [place] (DEXCOM G6 00 days, Dx: Medi 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 ) [facility] Blood-Gluco 2022-0 Yes [facility] se Sensor 7-27 sensor ity of (DEXCOM G6 00:00: every 10 [place] SENSOR) 00 days,Dx: Medical Marcie E11.65 Branch Blood-Gluco 2022-0 Yes [facility] se 7-27 transmitte ity of Transmitter 00:00: r every 90 [place] (DEXCOM G6 00 days, Dx: Medi 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 ) [facility] Blood-Gluco 2022-0 Yes [facility] se Sensor 7-27 sensor ity of (DEXCOM G6 00:00: every 10 [place] SENSOR) 00 days,Dx: Medical Marcie E11.65 Branch Blood-Gluco 2022-0 Yes [facility] se 7-27 transmitte ity of Transmitter 00:00: r every 90 [place] (DEXCOM G6 00 days, Dx: Medi 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 ) [facility] Blood-Gluco 2022-0 Yes [facility] se Sensor 7-27 sensor ity of (DEXCOM G6 00:00: every 10 [place] SENSOR) 00 days,Dx: Medical Marcie E11.65 Branch Blood-Gluco 2022-0 Yes [facility] se 7-27 transmitte ity of Transmitter 00:00: r every 90 [place] (DEXCOM G6 days, Dx: Medi 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 ) [facility] Blood-Gluco 0 Yes [facility] se Sensor 7-27 sensor ity of (DEXCOM G6 00:00: every 10 [place] SENSOR) 00 days,Dx: Medical Marcie E11.65 Branch Blood-Gluco 0 Yes [facility] se 7-27 transmitte ity of Transmitter 00:00: r every [place] (DEXCOM G6 , Dx: Medi 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 ) [facility] Blood-Gluco 2021-0 Yes [facility] se Sensor 7-27 sensor ity of (DEXCOM G6 00:00: every 10 [place] SENSOR) 00 days,Dx: Medical Marcie E11.65 Branch insulin 0 Yes [id number] Inject Univ ers regular 6-28 90-100 ity of human 00:00: units at [place] (HUMULIN R) 00 breakfast, Me dical 500 unit/mL 50-80 Branch injection units with lunch and 80-100 units at dinner Dx E11.40 insulin 0 Yes [id number] 1{appli 1 Uni vers U-500 6-28 cator} Applicator ity of syringe-nee 00:00: 3 (three) [place] (BD 00 times Medical INSULIN daily with Branch SYRINGE meals. Use U-500) 1/2 to mL 31 gauge administer x 15/64" U-500 Syrg insulin three times a day. Dx. E11.40 insulin 0 Yes [id number] Inject Univ ers regular 6-28 90-100 ity of human 00:00: units at [place] (HUMULIN R) 00 breakfast, Me dical 500 unit/mL 50-80 Branch injection units with lunch and 80-100 units at dinner Dx E11.40 insulin 2021-0 Yes [id number] 1{appli 1 Uni vers U-500 6-28 cator} Applicator ity of syringe-nee 00:00: 3 (three) [place] (BD 00 times Medical INSULIN daily with Branch SYRINGE meals. Use U-500) 1/2 to mL 31 gauge administer x 15/64" U-500 Syrg insulin three times a day. Dx. E11.40 insulin 2021-0 Yes [id number] Inject Univ ers regular 6-28 90-100 ity of human 00:00: units at [place] (HUMULIN R) 00 breakfast, Me dical 500 unit/mL 50-80 Branch injection units with lunch and 80-100 units at dinner Dx E11.40 insulin 2021-0 Yes [id number] 1{appli 1 Uni vers U-500 6-28 cator} Applicator ity of syringe-nee 00:00: 3 (three) [place] (BD 00 times Medical INSULIN daily with Branch SYRINGE meals. Use U-500) 1/2 to mL 31 gauge administer x 15/64" U-500 Syrg insulin three times a day. Dx. E11.40 insulin 0 Yes [id number] Inject Univ ers regular 6-28 90-100 ity of human 00:00: units at [place] (HUMULIN R) 00 breakfast, Me dical 500 unit/mL 50-80 Branch injection units with lunch and 80-100 units at dinner Dx E11.40 insulin 2021-0 Yes [id number] 1{appli 1 Uni vers U-500 6-28 cator} Applicator ity of syringe-nee 00:00: 3 (three) [place] (BD 00 times Medical INSULIN daily with Branch SYRINGE meals. Use U-500) 1/2 to mL 31 gauge administer x 15/64" U-500 Syrg insulin three times a day. Dx. E11.40 insulin 0 Yes [id number] Inject Univ ers regular 6-28 90-100 ity of human 00:00: units at [place] (HUMULIN R) 00 breakfast, Me dical 500 unit/mL 50-80 Branch injection units with lunch and 80-100 units at dinner Dx E11.40 insulin 2021-0 Yes [id number] 1{appli 1 Uni vers U-500 6-28 cator} Applicator ity of syringe-nee 00:00: 3 (three) [place] (BD 00 times Medical INSULIN daily with Branch SYRINGE meals. Use U-500) 1/2 to mL 31 gauge administer x 15/64" U-500 Syrg insulin three times a day. Dx. E11.40 insulin 0 Yes [id number] Inject Univ ers regular 6-28 90-100 ity of human 00:00: units at [place] (HUMULIN R) 00 breakfast, Me dical 500 unit/mL 50-80 Branch injection units with lunch and 80-100 units at dinner Dx E11.40 insulin 0 Yes [id number] 1{appli 1 Uni vers U-500 6-28 cator} Applicator ity of syringe-nee 00:00: 3 (three) [place] (BD 00 times Medical INSULIN daily with Branch SYRINGE meals. Use U-500) 1/2 to mL 31 gauge administer x 15/64" U-500 Syrg insulin three times a day. Dx. E11.40 insulin 0 Yes [id number] Inject Univ ers regular 6-28 90-100 ity of human 00:00: units at [place] (HUMULIN R) 00 breakfast, Me dical 500 unit/mL 50-80 Branch injection units with lunch and 80-100 units at dinner Dx E11.40 insulin 0 Yes [id number] 1{appli 1 Uni vers U-500 6-28 cator} Applicator ity of syringe-nee 00:00: 3 (three) [place] (BD 00 times Medical INSULIN daily with Branch SYRINGE meals. Use U-500) 1/2 to mL 31 gauge administer x 15/64" U-500 Syrg insulin three times a day. Dx. E11.40 insulin 0 Yes [id number] Inject Univ ers regular 6-28 90-100 ity of human 00:00: units at [place] (HUMULIN R) 00 breakfast, Me dical 500 unit/mL 50-80 Branch injection units with lunch and 80-100 units at dinner Dx E11.40 insulin 2021-0 Yes [id number] 1{appli 1 Uni vers U-500 6-28 cator} Applicator ity of syringe-nee 00:00: 3 (three) [place] (BD 00 times Medical INSULIN daily with Branch SYRINGE meals. Use U-500) 1/2 to mL 31 gauge administer x 15/64" U-500 Syrg insulin three times a day. Dx. E11.40 insulin 2021-0 Yes [id number] Inject Univ ers regular 6-28 90-100 ity of human 00:00: units at [place] (HUMULIN R) 00 breakfast, Me dical 500 unit/mL 50-80 Branch injection units with lunch and 80-100 units at dinner Dx E11.40 insulin 2021-0 Yes [id number] 1{appli 1 Uni vers U-500 12-15 cator} Applicator ity of syringe-nee 00:00: 3 (three) [place] (BD 00 times Medical INSULIN daily with Branch SYRINGE meals. Use U-500) 1/2 to mL 31 gauge administer x 15/64" U-500 Syrg insulin three times a day. Dx. E11.40 insulin 0 Yes [id number] Inject Univ ers regular 12-15 90-100 ity of human 00:00: units at [place] (HUMULIN R) 00 breakfast, Me dical 500 unit/mL 50-80 Branch injection units with lunch and 80-100 units at dinner Dx E11.40 insulin Yes [id number] 1{appli 1 Uni vers U-500 12-15 cator} Applicator ity of syringe-nee 00:00: 3 (three) [place] (BD 00 times Medical INSULIN daily with Branch SYRINGE meals. Use U-500) 1/2 to mL 31 gauge administer x 15/64" U-500 Syrg insulin three times a day. Dx. E11.40 insulin 2021- No [id number] Inject Uni vers regular 12-15 90-100 ity of human 00:00: 00:00 units at [place] (HUMULIN R) 00 :00 breakfast, Me dical 500 unit/mL 50-80 Branch injection units with lunch and 80-100 units at dinner Dx E11.40 insulin 2021- No [id number] 1{appli 1 Un beth U-500 12-15 cator} Applicator ity o f syringe-nee 00:00: 00:00 3 (three) [place] dle (BD 00 :00 times Medical INSULIN daily with Branch SYRINGE meals. Use U-500) 1/2 to mL 31 gauge administer x 15/64" U-500 Syrg insulin three times a day. Dx. E11.40 insulin 2021- No [id number] Inject Uni vers regular 12-15 90-100 ity of human 00:00: 00:00 units at [place] (HUMULIN R) 00 :00 breakfast, Me dical 500 unit/mL 50-80 Branch injection units with lunch and 80-100 units at dinner Dx E11.40 insulin 2021- No [id number] 1{appli 1 Un beth U-500 -04-20 cator} Applicator ity o f syringe-nee 00:00: 00:00 3 (three) [place] dle (BD 00 :00 times Medical INSULIN daily with Branch SYRINGE meals. Use U-500) 1/2 to mL 31 gauge administer x 15/64" U-500 Syrg insulin three times a day. Dx. E11.40 SIMVASTATIN 2021-0 Yes [id number] TAKE 1 [facility] 20 mg 6-26 TABLET AT ity of tablet 00:00: BEDTIME [place] [facility] SIMVASTATIN 2021-0 Yes [id number] TAKE 1 Univers 20 mg 6-26 TABLET AT ity of tablet 00:00: BEDTIME [place] [facility] SIMVASTATIN 2021-0 Yes [id number] TAKE 1 Univers 20 mg 6-26 TABLET AT ity of tablet 00:00: BEDTIME [place] [facility] SIMVASTATIN 2021-0 Yes [id number] TAKE 1 Univers 20 mg 6-26 TABLET AT ity of tablet 00:00: BEDTIME [place] [facility] SIMVASTATIN 2021-0 Yes [id number] TAKE 1 Univers 20 mg 6-26 TABLET AT ity of tablet 00:00: BEDTIME [place] [facility] SIMVASTATIN 2021-0 Yes [id number] TAKE 1 Univers 20 mg 6-26 TABLET AT ity of tablet 00:00: BEDTIME [place] [facility] SIMVASTATIN 2021-0 Yes [id number] TAKE 1 Univers 20 mg 6-26 TABLET AT ity of tablet 00:00: BEDTIME [place] [facility] SIMVASTATIN 2021-0 Yes [id number] TAKE 1 Univers 20 mg 6-26 TABLET AT ity of tablet 00:00: BEDTIME [place] [facility] SIMVASTATIN 2021-0 Yes [id number] TAKE 1 Univers 20 mg 6-26 TABLET AT ity of tablet 00:00: BEDTIME [place] [facility] SIMVASTATIN 2021-0 Yes [id number] TAKE 1 Univers 20 mg 6-26 TABLET AT ity of tablet 00:00: BEDTIME [place] [facility] SIMVASTATIN 2021-0 202- No [id number] TAKE 1 Univers 20 mg 6-26 04-20 TABLET AT ity of tablet 00:00: 00:00 BEDTIME [place] 00 : [facility] SIMVASTATIN 2021-0 2021- No [id number] TAKE 1 Univers 20 mg 6-26 04-20 TABLET AT ity of tablet 00:00: 00:00 BEDTIME [place] 00 :00 Medical Branch metFORMIN 2022-0 Yes [id number] 1000mg Take 1 Univers 1,000 mg 5-03 tablet by ity of tablet 00:00: mouth 2 [place] (two) Medical times Branch daily with meals. lisinopriL- 2021-0 Yes [id number] TAKE 1 Univers hydrochloro 5-03 TABLET ity of thiazide 00:00: TWICE A [place] 20-12.5 mg 00 DAY Medical per tablet Branch metFORMIN 2-0 Yes [id number] 1000mg Take 1 Univers 1,000 mg 5-03 tablet by ity of tablet 00:00: mouth 2 [place] (two) Medical times Branch daily with meals. lisinopriL- 2021-0 Yes [id number] TAKE 1 [facility] hydrochloro 5-03 TABLET ity of thiazide 00:00: TWICE A [place] 20-12.5 mg 00 DAY Medical per tablet Branch metFORMIN 2-0 Yes [id number] 1000mg Take 1 Univers 1,000 mg 5-03 tablet by ity of tablet 00:00: mouth 2 [place] (two) Medical times Branch daily with meals. lisinopriL- 2021-0 Yes [id number] TAKE 1 [facility] hydrochloro 5-03 TABLET ity of thiazide 00:00: TWICE A [place] 20-12.5 mg 00 DAY Medical per tablet Branch metFORMIN 2-0 Yes [id number] 1000mg Take 1 Univers 1,000 mg 5-03 tablet by ity of tablet 00:00: mouth 2 [place] (two) Medical times Branch daily with meals. lisinopriL- 2-0 Yes [id number] TAKE 1 Univers hydrochloro 5-03 TABLET ity of thiazide 00:00: TWICE A [place] 20-12.5 mg 00 DAY Medical per tablet Branch metFORMIN 2-0 Yes [id number] 1000mg Take 1 Univers 1,000 mg 5-03 tablet by ity of tablet 00:00: mouth 2 [place] (two) Medical times Branch daily with meals. lisinopriL- 2-0 Yes [id number] TAKE 1 [facility] hydrochloro 5-03 TABLET ity of thiazide 00:00: TWICE A [place] 20-12.5 mg 00 DAY Medical per tablet Branch metFORMIN 2022-0 Yes [id number] 1000mg Take 1 Univers 1,000 mg 5-03 tablet by ity of tablet 00:00: mouth 2 [place] 00 (two) Medical times Branch daily with meals. lisinopriL- 2022-0 Yes [id number] TAKE 1 [facility] hydrochloro 5-03 TABLET ity of thiazide 00:00: TWICE A [place] 20-12.5 mg 00 DAY Medical per tablet Branch metFORMIN 2022-0 Yes [id number] 1000mg Take 1 Univers 1,000 mg 5-03 tablet by ity of tablet 00:00: mouth 2 [place] 00 (two) Medical times Branch daily with meals. lisinopriL- 2-0 Yes [id number] TAKE 1 Univers hydrochloro 5-03 TABLET ity of thiazide 00:00: TWICE A [place] 20-12.5 mg 00 DAY Medical per tablet Branch metFORMIN 2-0 Yes [id number] 1000mg Take 1 Univers 1,000 mg 5-03 tablet by ity of tablet 00:00: mouth 2 [place] (two) Medical times Branch daily with meals. lisinopriL- 2-0 Yes [id number] TAKE 1 Univers hydrochloro 5-03 TABLET ity of thiazide 00:00: TWICE A [place] 20-12.5 mg 00 DAY Medical per tablet Branch metFORMIN 2-0 Yes [id number] 1000mg Take 1 Univers 1,000 mg 5-03 tablet by ity of tablet 00:00: mouth 2 [place] (two) Medical times Branch daily with meals. lisinopriL- 2-0 Yes [id number] TAKE 1 Univers hydrochloro 5-03 TABLET ity of thiazide 00:00: TWICE A [place] 20-12.5 mg 00 DAY Medical per tablet Branch lisinopriL- 2022-0 Yes [id number] TAKE 1 Univers hydrochloro 5-03 TABLET ity of thiazide 00:00: TWICE A [place] 20-12.5 mg 00 DAY Medical per tablet Branch lisinopriL- 2022-0 2022- No [id number] TAKE 1 Univers hydrochloro 5-03 11-01 TABLET ity o f thiazide 00:00: 00:00 TWICE A [place] 20-12.5 mg 00 :00 DAY Medical per tablet Branch lisinopriL- 2022-0 2022- No [id number] TAKE 1 Univers hydrochloro 5-03 11-01 TABLET ity o f thiazide 00:00: 00:00 TWICE A [place] 20-12.5 mg 00 :00 DAY Medical per tablet Branch metFORMIN 2-0 2022- No [id number] 1000mg Take 1 Univers 1,000 mg 5- 10-29 tablet by ity o f tablet 00:00: 00:00 mouth 2 [place] 00 :00 (two) Medical times Branch daily with meals. dapaglifloz 2-0 Yes [id number] 10mg Take 1 Univers in 4-26 tablet by ity of (XI) 00:00: mouth [place] 10 mg 00 daily. Medical tablet Branch dapaglifloz 2-0 Yes [id number] 10mg Take 1 Univers in 4-26 tablet by ity of () 00:00: mouth [place] 10 mg 00 daily. Medical tablet Branch dapaglifloz 2-0 Yes [id number] 10mg Take 1 Univers in 4-26 tablet by ity of () 00:00: mouth [place] 10 mg 00 daily. Medical tablet Branch dapaglifloz 2-0 Yes [id number] 10mg Take 1 Univers in 4-26 tablet by ity of () 00:00: mouth [place] 10 mg 00 daily. Medical tablet Branch dapaglifloz 2-0 Yes [id number] 10mg Take 1 Univers in 4-26 tablet by ity of () 00:00: mouth [place] 10 mg 00 daily. Medical tablet Branch dapaglifloz 2-0 2022- No [id number] 10mg Take 1 Univers in 4-26 09-25 tablet by ity of () 00:00: 00:00 mouth [place] 10 mg 00 :00 daily. Medical tablet Branch ACCU-CHEK 2022-0 Yes USE TO [employer] [facility] GUIDE TEST 4-06 CHECK ity of STRIPS 00:00: GLUCOSE 3 [place] strip 00 TIMES A Medical DAY Branch ACCU-CHEK 2022-0 Yes USE TO Univer s GUIDE TEST 4-06 CHECK ity of STRIPS 00:00: GLUCOSE 3 [place] strip 00 TIMES A Medical DAY Branch ACCU-CHEK 2022-0 Yes USE TO Univer s GUIDE TEST 4-06 CHECK ity of STRIPS 00:00: GLUCOSE 3 [place] strip 00 TIMES A Medical DAY Branch ACCU-CHEK 2022-0 Yes USE TO Univer s GUIDE TEST 4-06 CHECK ity of STRIPS 00:00: GLUCOSE 3 [place] strip 00 TIMES A Medical DAY Branch ACCU-CHEK 2022-0 Yes USE TO Univer s GUIDE TEST 4-06 CHECK ity of STRIPS 00:00: GLUCOSE 3 [place] strip 00 TIMES A Medical DAY Branch ACCU-CHEK 2-0 Yes USE TO Univer s GUIDE TEST 4-06 CHECK ity of STRIPS 00:00: GLUCOSE 3 [place] strip 00 TIMES A Medical DAY Branch ACCU-CHEK 2-0 Yes USE TO Univer s GUIDE TEST 4-06 CHECK ity of STRIPS 00:00: GLUCOSE 3 [place] strip 00 TIMES A Medical DAY Branch ACCU-CHEK 2-0 Yes USE TO Univer s GUIDE TEST 4-06 CHECK ity of STRIPS 00:00: GLUCOSE 3 [place] strip 00 TIMES A Medical DAY Branch ACCU-CHEK 2021-0 Yes USE TO Univer s GUIDE TEST 4-06 CHECK ity of STRIPS 00:00: GLUCOSE 3 [place] strip 00 TIMES A Medical DAY Branch ACCU-CHEK 2021-0 Yes USE TO Univer s GUIDE TEST 4-06 CHECK ity of STRIPS 00:00: GLUCOSE 3 [place] strip 00 TIMES A Medical DAY Branch ACCU-CHEK 2-0 Yes USE TO Univer s GUIDE TEST 4-06 CHECK ity of STRIPS 00:00: GLUCOSE 3 [place] strip 00 TIMES A Medical DAY Branch ACCU-CHEK 2021-0 Yes USE TO Univer s GUIDE TEST 4-06 CHECK ity of STRIPS 00:00: GLUCOSE 3 [place] strip 00 TIMES A Medical DAY Branch ACCU-CHEK 2-0 Yes USE TO Univer s GUIDE TEST 4-06 CHECK ity of STRIPS 00:00: GLUCOSE 3 [place] strip 00 TIMES A Medical DAY Branch ACCU-CHEK 2-0 Yes USE TO Univer s GUIDE TEST 4-06 CHECK ity of STRIPS 00:00: GLUCOSE 3 [place] strip 00 TIMES A Medical DAY Branch ACCU-CHEK 2022-0 Yes USE TO Univer s GUIDE TEST 4-06 CHECK ity of STRIPS 00:00: GLUCOSE 3 [place] strip 00 TIMES A Medical DAY Branch ACCU-CHEK 2022-0 Yes USE TO Univer s GUIDE TEST 4-06 CHECK ity of STRIPS 00:00: GLUCOSE 3 [place] strip 00 TIMES A Medical DAY Branch ACCU-CHEK 2022-0 Yes USE TO Univer s GUIDE TEST 4-06 CHECK ity of STRIPS 00:00: GLUCOSE 3 [place] strip 00 TIMES A Medical DAY Branch ACCU-CHEK 2-0 Yes USE TO Univer s GUIDE TEST 4-06 CHECK ity of STRIPS 00:00: GLUCOSE 3 [place] strip 00 TIMES A Medical DAY Branch ACCU-CHEK 2021-0 Yes USE TO Univer s GUIDE TEST 4-06 CHECK ity of STRIPS 00:00: GLUCOSE 3 [place] strip 00 TIMES A Medical DAY Branch ACCU-CHEK 2021-0 Yes USE TO Univer s GUIDE TEST 4-06 CHECK ity of STRIPS 00:00: GLUCOSE 3 [place] strip 00 TIMES A Medical DAY Branch ACCU-CHEK 2021-0 Yes USE TO Univer s GUIDE TEST 4-06 CHECK ity of STRIPS 00:00: GLUCOSE 3 [place] strip 00 TIMES A Medical DAY Branch ACCU-CHEK 2021-0 Yes USE TO Univer s GUIDE TEST 4-06 CHECK ity of STRIPS 00:00: GLUCOSE 3 [place] strip 00 TIMES A Medical DAY Branch ACCU-CHEK 2021-0 Yes USE TO Univer s GUIDE TEST 4-06 CHECK ity of STRIPS 00:00: GLUCOSE 3 [place] strip 00 TIMES A Medical DAY Branch ACCU-CHEK 2021-0 Yes USE TO Univer s GUIDE TEST 4-06 CHECK ity of STRIPS 00:00: GLUCOSE 3 [place] strip 00 TIMES A Medical DAY Branch ACCU-CHEK 2021-0 Yes USE TO Univer s GUIDE TEST 4-06 CHECK ity of STRIPS 00:00: GLUCOSE 3 [place] strip 00 TIMES A Medical DAY Branch ACCU-CHEK 2021-0 Yes USE TO Univer s GUIDE TEST 4-06 CHECK ity of STRIPS 00:00: GLUCOSE 3 [place] strip 00 TIMES A Medical DAY Branch ACCU-CHEK 2021-0 Yes USE TO Univer s GUIDE TEST 4-06 CHECK ity of STRIPS 00:00: GLUCOSE 3 [place] strip 00 TIMES A Medical DAY Branch ACCU-CHEK 2021-0 Yes USE TO Univer s GUIDE TEST 4-06 CHECK ity of STRIPS 00:00: GLUCOSE 3 [place] strip 00 TIMES A Medical DAY Branch ACCU-CHEK 2021-0 Yes USE TO Univer s GUIDE TEST 4-06 CHECK ity of STRIPS 00:00: GLUCOSE 3 [place] strip 00 TIMES A Medical DAY Branch ACCU-CHEK 2021-0 Yes USE TO Univer s GUIDE TEST 4-06 CHECK ity of STRIPS 00:00: GLUCOSE 3 [place] strip 00 TIMES A Medical DAY Branch ACCU-CHEK 2021-0 Yes USE TO Univer s GUIDE TEST 4-06 CHECK ity of STRIPS 00:00: GLUCOSE 3 [place] strip 00 TIMES A Medical DAY Branch ACCU-CHEK 2021-0 Yes USE TO Univer s GUIDE TEST 4-06 CHECK ity of STRIPS 00:00: GLUCOSE 3 [place] strip 00 TIMES A Medical DAY Branch ACCU-CHEK 2021-0 Yes USE TO Univer s GUIDE TEST 4-06 CHECK ity of STRIPS 00:00: GLUCOSE 3 [place] strip 00 TIMES A Medical DAY Branch ACCU-CHEK 2021-0 Yes USE TO Univer s FASTCLIX 3-17 CHECK ity of LANCET DRUM 00:00: GLUCOSE 3 [place] TIMES A Medical DAY Branch ACCU-CHEK 2021-0 Yes USE TO Univer s FASTCLIX 3-17 CHECK ity of LANCET DRUM 00:00: GLUCOSE 3 [place] 00 TIMES A Medical DAY Branch ACCU-CHEK 2021-0 Yes USE TO Univer s FASTCLIX 3-17 CHECK ity of LANCET DRUM 00:00: GLUCOSE 3 [place] 00 TIMES A Medical DAY Branch ACCU-CHEK 2021-0 Yes USE TO Univer s FASTCLIX 3-17 CHECK ity of LANCET DRUM 00:00: GLUCOSE 3 [place] 00 TIMES A Medical DAY Branch ACCU-CHEK 2021-0 Yes USE TO Univer s FASTCLIX 3-17 CHECK ity of LANCET DRUM 00:00: GLUCOSE 3 [place] 00 TIMES A Medical DAY Branch ACCU-CHEK 2021-0 Yes USE TO Univer s FASTCLIX 3-17 CHECK ity of LANCET DRUM 00:00: GLUCOSE 3 [place] 00 TIMES A Medical DAY Branch ACCU-CHEK 2021-0 Yes USE TO Univer s FASTCLIX 3-17 CHECK ity of LANCET DRUM 00:00: GLUCOSE 3 [place] 00 TIMES A Medical DAY Branch ACCU-CHEK 202-0 Yes USE TO Univer s FASTCLIX 3-17 CHECK ity of LANCET DRUM 00:00: GLUCOSE 3 [place] 00 TIMES A Medical DAY Branch ACCU-CHEK 2022-0 Yes USE TO Univer s FASTCLIX 3-17 CHECK ity of LANCET DRUM 00:00: GLUCOSE 3 [place] 00 TIMES A Medical DAY Branch ACCU-CHEK 2022-0 Yes USE TO Univer s FASTCLIX 3-17 CHECK ity of LANCET DRUM 00:00: GLUCOSE 3 [place] 00 TIMES A Medical DAY Branch ACCU-CHEK 2-0 Yes USE TO Univer s FASTCLIX 3-17 CHECK ity of LANCET DRUM 00:00: GLUCOSE 3 [place] 00 TIMES A Medical DAY Branch ACCU-CHEK 2-0 Yes USE TO Univer s FASTCLIX 3-17 CHECK ity of LANCET DRUM 00:00: GLUCOSE 3 [place] 00 TIMES A Medical DAY Branch ACCU-CHEK 2-0 Yes USE TO Univer s FASTCLIX 3-17 CHECK ity of LANCET DRUM 00:00: GLUCOSE 3 [place] 00 TIMES A Medical DAY Branch ACCU-CHEK 2-0 Yes USE TO Univer s FASTCLIX 3-17 CHECK ity of LANCET DRUM 00:00: GLUCOSE 3 [place] 00 TIMES A Medical DAY Branch ACCU-CHEK 2-0 Yes USE TO Univer s FASTCLIX 3-17 CHECK ity of LANCET DRUM 00:00: GLUCOSE 3 [place] 00 TIMES A Medical DAY Branch ACCU-CHEK 2022-0 Yes USE TO Univer s FASTCLIX 3-17 CHECK ity of LANCET DRUM 00:00: GLUCOSE 3 [place] 00 TIMES A Medical DAY Branch ACCU-CHEK 2022-0 Yes USE TO Univer s FASTCLIX 3-17 CHECK ity of LANCET DRUM 00:00: GLUCOSE 3 [place] 00 TIMES A Medical DAY Branch ACCU-CHEK 2022-0 Yes USE TO Univer s FASTCLIX 3-17 CHECK ity of LANCET DRUM 00:00: GLUCOSE 3 [place] 00 TIMES A Medical DAY Branch ACCU-CHEK 2022-0 Yes USE TO Univer s FASTCLIX 3-17 CHECK ity of LANCET DRUM 00:00: GLUCOSE 3 [place] 00 TIMES A Medical DAY Branch ACCU-CHEK 2022-0 Yes USE TO Univer s FASTCLIX 3-17 CHECK ity of LANCET DRUM 00:00: GLUCOSE 3 [place] 00 TIMES A Medical DAY Branch ACCU-CHEK 2022-0 Yes USE TO Univer s FASTCLIX 3-17 CHECK ity of LANCET DRUM 00:00: GLUCOSE 3 [place] 00 TIMES A Medical DAY Branch ACCU-CHEK 2022-0 Yes USE TO Univer s FASTCLIX 3-17 CHECK ity of LANCET DRUM 00:00: GLUCOSE 3 [place] 00 TIMES A Medical DAY Branch ACCU-CHEK 2022-0 Yes USE TO Univer s FASTCLIX 3-17 CHECK ity of LANCET DRUM 00:00: GLUCOSE 3 [place] 00 TIMES A Medical DAY Branch ACCU-CHEK 2022-0 Yes USE TO Univer s FASTCLIX 3-17 CHECK ity of LANCET DRUM 00:00: GLUCOSE 3 [place] 00 TIMES A Medical DAY Branch ACCU-CHEK 2022-0 Yes USE TO Univer s FASTCLIX 3-17 CHECK ity of LANCET DRUM 00:00: GLUCOSE 3 [place] 00 TIMES A Medical DAY Branch ACCU-CHEK 2022-0 Yes USE TO Univer s FASTCLIX 3-17 CHECK ity of LANCET DRUM 00:00: GLUCOSE 3 [place] [facility] 00 TIMES A [facility] DAY [facility] ACCU-CHEK 2022-0 Yes USE TO [facility] FASTCLIX 3-17 CHECK ity of LANCET DRUM 00:00: GLUCOSE 3 [place] [facility] 00 TIMES A [facility] DAY [facility] ACCU-CHEK 2022-0 Yes USE TO [facility] FASTCLIX 3-17 CHECK ity of LANCET DRUM 00:00: GLUCOSE 3 [place] [facility] 00 TIMES A [facility] DAY [facility] ACCU-CHEK 2022-0 Yes USE TO [facility] FASTCLIX 3-17 CHECK ity of LANCET DRUM 00:00: [place]UCOSE 3 [place] Misc [place] TIMES A Medical DAY Branch ACCU-CHEK 2022-0 Yes USE TO Univer s FASTCLIX 3-17 CHECK ity of LANCET DRUM 00:00: GLUCOSE 3 [place] Misc 00 TIMES A Medical DAY Branch ACCU-CHEK 2021-0 Yes USE TO Univer s FASTCLIX 3-17 CHECK ity of LANCET DRUM 00:00: GLUCOSE 3 [place] Misc 00 TIMES A Medical DAY Branch ACCU-CHEK 2021-0 Yes USE TO Univer s FASTCLIX 3-17 CHECK ity of LANCET DRUM 00:00: GLUCOSE 3 [place] Misc 00 TIMES A Medical DAY Branch ACCU-CHEK 0 Yes USE TO Univer s FASTCLIX 3-17 CHECK ity of LANCET DRUM 00:00: GLUCOSE 3 [place] Misc 00 TIMES A Medical DAY Branch Insulin 0 Yes [id number] Use 3 Unive rs [place], 2-14 times ity of Disposable, 00:00: daily with [place] (BD INSULIN 00 insulin. Medi jada PEN NEEDLE Dx E11.65 Bran ch UF) 31 gauge x 5/16" Ndle Insulin Yes [id number] Use 3 [facility] rs [place], 2-14 times ity of Disposable, 00:00: daily with [place] (BD INSULIN 00 insulin. Medi jada PEN NEEDLE Dx E11.65 Bran ch UF) 31 gauge x 5/16" Ndle Insulin 0 Yes [id number] Use 3 [facility]ive rs [place], 2-14 times ity of Disposable, 00:00: daily with [place] (BD INSULIN 00 insulin. Medi jada PEN NEEDLE Dx E11.65 Bran ch UF) 31 gauge x 5/16" Ndle Insulin 2021-0 Yes [id number] Use 3 [facility]ive rs [place], 2-14 times ity of Disposable, 00:00: daily with [place] (BD INSULIN 00 insulin. Medi jada PEN NEEDLE Dx E11.65 Bran ch UF) 31 gauge x 5/16" Ndle Insulin 0 Yes [id number] Use 3 [facility]ive rs [place], 2-14 times ity of Disposable, 00:00: daily with [place] (BD INSULIN 00 insulin. Medi jada PEN NEEDLE Dx E11.65 Bran ch UF) 31 gauge x 5/16" Ndle Insulin 0 Yes [id number] Use 3 Unive rs [place], 2-14 times ity of Disposable, 00:00: daily with [place] (BD INSULIN 00 insulin. Medi jada PEN NEEDLE Dx E11.65 Bran ch UF) 31 gauge x 5/16" Ndle Insulin 0 Yes [id number] Use 3 [facility]ive rs [place], 2-14 times ity of Disposable, 00:00: daily with [place] (BD INSULIN 00 insulin. Medi jada PEN NEEDLE Dx E11.65 Bran ch UF) 31 gauge x 5/16" Ndle Insulin 0 Yes [id number] Use 3 Unive rs [place], 2-14 times ity of Disposable, 00:00: daily with [place] (BD INSULIN 00 insulin. Medi jada PEN NEEDLE Dx E11.65 Bran ch UF) 31 gauge x 5/16" Ndle Insulin 0 Yes [id number] Use 3 [facility]ive rs [place], 2-14 times ity of Disposable, 00:00: daily with [place] (BD INSULIN 00 insulin. Medi jada PEN NEEDLE Dx E11.65 Bran ch UF) 31 gauge x 5/16" Ndle Insulin 0 Yes [id number] Use 3 Unive rs [place], 2-14 times ity of Disposable, 00:00: daily with [place] (BD INSULIN 00 insulin. Medi jada PEN NEEDLE Dx E11.65 Bran ch UF) 31 gauge x 5/16" Ndle Insulin 0 Yes [id number] Use 3 Unive rs [place], 2-14 times ity of Disposable, 00:00: daily with [place] (BD INSULIN 00 insulin. Medi jada PEN NEEDLE Dx E11.65 Bran ch UF) 31 gauge x 5/16" Ndle Insulin 2021-0 Yes [id number] Use 3 Unive rs [place], 2-14 times ity of Disposable, 00:00: daily with [place] (BD INSULIN 00 insulin. Medi jada PEN NEEDLE Dx E11.65 Bran ch UF) 31 gauge x 5/16" Ndle Insulin 2021-0 Yes [id number] Use 3 [facility]ive rs [place], 2-14 times ity of Disposable, 00:00: daily with [place] (BD INSULIN 00 insulin. Medi jada PEN NEEDLE Dx E11.65 Bran ch UF) 31 gauge x 5/16" Ndle Insulin 2021-0 Yes [id number] Use 3 [facility]ive rs [place], 2-14 times ity of Disposable, 00:00: daily with [place] (BD INSULIN 00 insulin. Medi jada PEN NEEDLE Dx E11.65 Bran ch UF) 31 gauge x 5/16" Ndle Insulin 2021-0 Yes [id number] Use 3 [facility]ive rs [place], 2-14 times ity of Disposable, 00:00: daily with [place] (BD INSULIN 00 insulin. Medi jada PEN NEEDLE Dx E11.65 Bran ch UF) 31 gauge x 5/16" Ndle Insulin Yes [id number] Use 3 [facility]ive rs [place], 2-14 times ity of Disposable, 00:00: daily with [place] (BD INSULIN 00 insulin. Medi jada PEN NEEDLE Dx E11.65 Bran ch UF) 31 gauge x 5/16" Ndle Insulin Yes [id number] Use 3 Unive rs [place], 2-14 times ity of Disposable, 00:00: daily with [place] (BD INSULIN 00 insulin. Medi jada PEN NEEDLE Dx E11.65 Bran ch UF) 31 gauge x 5/16" Ndle Insulin Yes [id number] Use 3 [facility]ive rs [place], 2-14 times ity of Disposable, 00:00: daily with [place] (BD INSULIN 00 insulin. Medi jada PEN NEEDLE Dx E11.65 Bran ch UF) 31 gauge x 5/16" Ndle Insulin 2021- No [id number] Use 3 Univ ers [place], 2-14 12-15 times ity of Disposable, 00:00: 00:00 daily with [place] (BD INSULIN 00 :00 insulin. Medi jada PEN NEEDLE Dx E11.65 Bran ch UF) 31 gauge x 5/16" Ndle aspirin 2020-06 Yes 81mg Take 81 mg U nivers mg EC 2-02 by mouth ity of tablet 17:14: daily. [address] multivit-mi 2020-06 Yes 1{tbl} Take 1 Un beth n-FA-lycope 2-02 tablet by ity of n-lutein 17:14: mouth [place] (CENTRUM 57 daily. Medical SILVER MEN) Branch 300-600-300 mcg Tab aspirin 2020-06 Yes 81mg Take 81 mg U nivers mg EC 2-02 by mouth ity of tablet 17:14: daily. [address] multivit-mi 2020-06 Yes 1{tbl} Take 1 Un beth n-FA-lycope 2-02 tablet by ity of n-lutein 17:14: mouth [place] (CENTRUM 57 daily. Medical SILVER MEN) Branch 300-600-300 mcg Tab aspirin 2020-06 Yes 81mg Take 81 mg U nivers mg EC 2-02 by mouth ity of tablet 17:14: daily. [address] 2020-06 Yes 1{tbl} Take 1 Un beth n-FA-lycope 2-02 tablet by ity of n-lutein 17:14: mouth [place] (CENTRUM 57 daily. Medical SILVER MEN) Branch 300-600-300 mcg Tab aspirin 81 2020-06 Yes 81mg Take 81 mg U nivers mg EC 2-02 by mouth ity of tablet 17:14: daily. [address] 2020-06 Yes 1{tbl} Take 1 Un beth n-FA-lycope 2-02 tablet by ity of n-lutein 17:14: mouth [place] (CENTRUM 57 daily. Medical SILVER MEN) Branch 300-600-300 mcg Tab aspirin 81 2020-06 Yes 81mg Take 81 mg U nivers mg EC 2-02 by mouth ity of tablet 17:14: daily. [address] 2020-06 Yes 1{tbl} Take 1 Un beth n-FA-lycope 2-02 tablet by ity of n-lutein 17:14: mouth [place] (CENTRUM 57 daily. Medical SILVER MEN) Branch 300-600-300 mcg Tab aspirin 81 2020-06 Yes 81mg Take 81 mg U nivers mg EC 2-02 by mouth ity of tablet 17:14: daily. [address] 2020-06 Yes 1{tbl} Take 1 Un beth n-FA-lycope 2-02 tablet by ity of n-lutein 17:14: mouth [place] (CENTRUM 57 daily. Medical SILVER MEN) Branch 300-600-300 mcg Tab aspirin 81 2020-06 Yes 81mg Take 81 mg U nivers mg EC 2-02 by mouth ity of tablet 17:14: daily. [address] 2020-06 Yes 1{tbl} Take 1 Un beth n-FA-lycope 2-02 tablet by ity of n-lutein 17:14: mouth [place] (CENTRUM 57 daily. Medical SILVER MEN) Branch 300-600-300 mcg Tab aspirin 81 2020-06 Yes 81mg Take 81 mg U nivers mg EC 2-02 by mouth ity of tablet 17:14: daily. [address] 2020-06 Yes 1{tbl} Take 1 Un beth n-FA-lycope 2-02 tablet by ity of n-lutein 17:14: mouth [place] (CENTRUM 57 daily. Medical SILVER MEN) Branch 300-600-300 mcg Tab aspirin 2020-06 Yes 81mg Take 81 mg U nivers mg EC 2-02 by mouth ity of tablet 17:14: daily. [address] 2020-06 Yes 1{tbl} Take 1 Un beth n-FA-lycope 2-02 tablet by ity of n-lutein 17:14: mouth [place] (CENTRUM 57 daily. Medical SILVER MEN) Branch 300-600-300 mcg Tab aspirin 2020-06 Yes 81mg Take 81 mg U nivers mg EC 2-02 by mouth ity of tablet 17:14: daily. [address] 2020-06 Yes 1{tbl} Take 1 Un beth n-FA-lycope 2-02 tablet by ity of n-lutein 17:14: mouth [place] (CENTRUM 57 daily. Medical SILVER MEN) Branch 300-600-300 mcg Tab aspirin 2020-06 Yes 81mg Take 81 mg U nivers mg EC 2-02 by mouth ity of tablet 17:14: daily. [address] 2020-06 Yes 1{tbl} Take 1 Un beth n-FA-lycope 2-02 tablet by ity of n-lutein 17:14: mouth [place] (CENTRUM 57 daily. Medical SILVER MEN) Branch 300-600-300 mcg Tab aspirin 2020-06 Yes 81mg Take 81 mg U nivers mg EC 2-02 by mouth ity of tablet 17:14: daily. [address] 2020-06 Yes 1{tbl} Take 1 Un beth n-FA-lycope 2-02 tablet by ity of n-lutein 17:14: mouth [place] (CENTRUM 57 daily. Medical SILVER MEN) Branch 300-600-300 mcg Tab aspirin 2020-06 Yes 81mg Take 81 mg U nivers mg EC 2-02 by mouth ity of tablet 17:14: daily. [address] 2020-06 Yes 1{tbl} Take 1 Un beth n-FA-lycope 2-02 tablet by ity of n-lutein 17:14: mouth [place] (CENTRUM 57 daily. Medical SILVER MEN) Branch 300-600-300 mcg Tab aspirin 81 2020-06 Yes 81mg Take 81 mg U nivers mg EC 2-02 by mouth ity of tablet 17:14: daily. [address] 2020-06 Yes 1{tbl} Take 1 Un beth n-FA-lycope 2-02 tablet by ity of n-lutein 17:14: mouth [place] (CENTRUM 57 daily. Medical SILVER MEN) Branch 300-600-300 mcg Tab aspirin 81 2020-06 Yes 81mg Take 81 mg U nivers mg EC 2-02 by mouth ity of tablet 17:14: daily. [address] 2020-06 Yes 1{tbl} Take 1 Un beth n-FA-lycope 2-02 tablet by ity of n-lutein 17:14: mouth [place] (CENTRUM 57 daily. Medical SILVER MEN) Branch 300-600-300 mcg Tab aspirin 81 2020-06 Yes 81mg Take 81 mg U nivers mg EC 2-02 by mouth ity of tablet 17:14: daily. [address] 2020-06 Yes 1{tbl} Take 1 Un beth n-FA-lycope 2-02 tablet by ity of n-lutein 17:14: mouth [place] (CENTRUM 57 daily. Medical SILVER MEN) Branch 300-600-300 mcg Tab aspirin 81 2020-06 Yes 81mg Take 81 mg U nivers mg EC 2-02 by mouth ity of tablet 17:14: daily. [address] 2020-06 Yes 1{tbl} Take 1 Un beth n-FA-lycope 2-02 tablet by ity of n-lutein 17:14: mouth [place] (CENTRUM 57 daily. Medical SILVER MEN) Branch 300-600-300 mcg Tab aspirin 81 2020-06 Yes 81mg Take 81 mg U nivers mg EC 2-02 by mouth ity of tablet 17:14: daily. [address] 2020-06 Yes 1{tbl} Take 1 Un beth n-FA-lycope 2-02 tablet by ity of n-lutein 17:14: mouth [place] (CENTRUM 57 daily. Medical SILVER MEN) Branch 300-600-300 mcg Tab aspirin 81 2020-06 Yes 81mg Take 81 mg U nivers mg EC 2-02 by mouth ity of tablet 17:14: daily. [address] 2020-06 Yes 1{tbl} Take 1 Un beth n-FA-lycope 2-02 tablet by ity of n-lutein 17:14: mouth [place] (CENTRUM 57 daily. Medical SILVER MEN) Branch 300-600-300 mcg Tab aspirin 81 2020-06 Yes 81mg Take 81 mg U nivers mg EC 2-02 by mouth ity of tablet 17:14: daily. [address] 2020-06 Yes 1{tbl} Take 1 Un beth n-FA-lycope 2-02 tablet by ity of n-lutein 17:14: mouth [place] (CENTRUM 57 daily. Medical SILVER MEN) Branch 300-600-300 mcg Tab aspirin 81 2020-06 Yes 81mg Take 81 mg U nivers mg EC 2-02 by mouth ity of tablet 17:14: daily. [address] 2020-06 Yes 1{tbl} Take 1 Un beth n-FA-lycope 2-02 tablet by ity of n-lutein 17:14: mouth [place] (CENTRUM 57 daily. Medical SILVER MEN) Branch 300-600-300 mcg Tab aspirin 81 2020-06 Yes 81mg Take 81 mg U nivers mg EC 2-02 by mouth ity of tablet 17:14: daily. [address] 2020-06 Yes 1{tbl} Take 1 Un beth n-FA-lycope 2-02 tablet by ity of n-lutein 17:14: mouth [place] (CENTRUM 57 daily. Medical SILVER MEN) Branch 300-600-300 mcg Tab aspirin 81 2020-06 Yes 81mg Take 81 mg U nivers mg EC 2-02 by mouth ity of tablet 17:14: daily. [address] 2020-06 Yes 1{tbl} Take 1 Un beth n-FA-lycope 2-02 tablet by ity of n-lutein 17:14: mouth [place] (CENTRUM 57 daily. Medical SILVER MEN) Branch 300-600-300 mcg Tab aspirin 81 2020-06 Yes 81mg Take 81 mg U nivers mg EC 2-02 by mouth ity of tablet 17:14: daily. [address] 2020-06 Yes 1{tbl} Take 1 Un beth n-FA-lycope 2-02 tablet by ity of n-lutein 17:14: mouth [place] (CENTRUM 57 daily. Medical SILVER MEN) Branch 300-600-300 mcg Tab aspirin 81 2020-06 Yes 81mg Take 81 mg U nivers mg EC 2-02 by mouth ity of tablet 17:14: daily. [address] 2020-06 Yes 1{tbl} Take 1 Un beth n-FA-lycope 2-02 tablet by ity of n-lutein 17:14: mouth [place] (CENTRUM 57 daily. Medical SILVER MEN) Branch 300-600-300 mcg Tab aspirin 2020-06 Yes 81mg Take 81 mg U nivers mg EC 2-02 by mouth ity of tablet 17:14: daily. [address] 2020-06 Yes 1{tbl} Take 1 Un beth n-FA-lycope 2-02 tablet by ity of n-lutein 17:14: mouth [place] (CENTRUM 57 daily. Medical SILVER MEN) Branch 300-600-300 mcg Tab aspirin 2020-06 Yes 81mg Take 81 mg U nivers mg EC 2-02 by mouth ity of tablet 17:14: daily. [address] 2020-06 Yes 1{tbl} Take 1 Un beth n-FA-lycope 2-02 tablet by ity of n-lutein 17:14: mouth [place] (CENTRUM 57 daily. Medical SILVER MEN) Branch 300-600-300 mcg Tab aspirin 2020-06 Yes 81mg Take 81 mg U nivers mg EC 2-02 by mouth ity of tablet 17:14: daily. [address] 2020-06 Yes 1{tbl} Take 1 Un beth n-FA-lycope 2-02 tablet by ity of n-lutein 17:14: mouth [place] (CENTRUM 57 daily. Medical SILVER MEN) Branch 300-600-300 mcg Tab aspirin 81 2020-06 Yes 81mg Take 81 mg U nivers mg EC 2-02 by mouth ity of tablet 17:14: daily. [address] 2020-06 Yes 1{tbl} Take 1 Un beth n-FA-lycope 2-02 tablet by ity of n-lutein 17:14: mouth [place] (CENTRUM 57 daily. Medical SILVER MEN) Branch 300-600-300 mcg Tab aspirin 81 2020-06 Yes 81mg Take 81 mg U nivers mg EC 2-02 by mouth ity of tablet 17:14: daily. [address] 2020-06 Yes 1{tbl} Take 1 Un beth n-FA-lycope 2-02 tablet by ity of n-lutein 17:14: mouth [place] (CENTRUM 57 daily. Medical SILVER MEN) Branch 300-600-300 mcg Tab aspirin 81 2020-06 Yes 81mg Take 81 mg U nivers mg EC 2-02 by mouth ity of tablet 17:14: daily. [address] 2020-06 Yes 1{tbl} Take 1 Un beth n-FA-lycope 2-02 tablet by ity of n-lutein 17:14: mouth [place] (CENTRUM 57 daily. Medical SILVER MEN) Branch 300-600-300 mcg Tab aspirin 81 2020-06 Yes 81mg Take 81 mg U nivers mg EC 2-02 by mouth ity of tablet 17:14: daily. [address] 2020-06 Yes 1{tbl} Take 1 Un beth n-FA-lycope 2-02 tablet by ity of n-lutein 17:14: mouth [place] (CENTRUM 57 daily. Medical SILVER MEN) Branch 300-600-300 mcg Tab aspirin 81 2020-06 Yes 81mg Take 81 mg U nivers mg EC 2-02 by mouth ity of tablet 17:14: daily. [address] 2020-06 Yes 1{tbl} Take 1 Un beth n-FA-lycope 2-02 tablet by ity of n-lutein 17:14: mouth [place] (CENTRUM 57 daily. Medical SILVER MEN) Branch 300-600-300 mcg Tab Blood-Gluco 2020-06 Yes Change Univ ers se Sensor 0-11 sensor ity of (DEXCOM G6 00:00: every 10 [place] SENSOR) 00 days,Dx: Medical [place] E11.65 Branch Blood-Gluco 2020-06 Yes Use Daily U nivers se 0-11 , Dx: ity of [place] 00:00: E11.65 [place] 00 [place] (DEXCOM G6 Branch ENTRY LEVEL DRAFTER) Misc Blood-Gluco 2020-06 Yes Change Univ ers se 0-11 transmitte ity of Transmitter 00:00: r every 90 [place] (DEXCOM G6 00 days, Dx: Medi 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 ) Marcie Blood-Gluco 2020-06 Yes Change Univ ers se Sensor 0-11 sensor ity of (DEXCOM G6 00:00: every 10 [place] SENSOR) 00 days,Dx: Medical [place] E11.65 Branch Blood-Gluco 2020-06 Yes Use Daily U nivers se 0-11 , Dx: ity of [place] 00:00: E11.65 [place] (DEXCOM G6 Branch ENTRY LEVEL DRAFTER) Misc Blood-Gluco 2020-06 Yes Change Univ ers se 0-11 transmitte ity of Transmitter 00:00: r every 90 [place] (DEXCOM G6 00 days, Dx: Medi 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 ) Marc[place] Blood-Gluco 2020-06 Yes Use Daily U nivers se 0-11 , Dx: ity of [place] 00:00: E11.65 [place] [facility] (DEXCOM G6 Branch ENTRY LEVEL DRAFTER) Misc Blood-Gluco 2020-06 Yes Use Daily U nivers se 0-11 , Dx: ity of [place] 00:00: E11.65 [place] (DEXCOM G6 Branch ENTRY LEVEL DRAFTER) Misc Blood-Gluco 2020-06 Yes Use Daily U nivers se 0-11 , Dx: ity of [place] 00:00: E11.65 [place] [facility] (DEXCOM G6 Branch ENTRY LEVEL DRAFTER) Misc Blood-Gluco 2020-06 Yes Use Daily U nivers se 0-11 , Dx: ity of [place] 00:00: E11.65 [place] [facility] (DEXCOM G6 Branch ENTRY LEVEL DRAFTER) Misc Blood-Gluco 2020-06 Yes Use Daily U nivers se 0-11 , Dx: ity of [place] 00:00: E11.65 [place] [facility] (DEXCOM G6 Branch ENTRY LEVEL DRAFTER) Misc Blood-Gluco 2020-06 Yes Use Daily U nivers se 0-11 , Dx: ity of [place] 00:00: E11.65 [place] [facility] (DEXCOM G6 Branch ENTRY LEVEL DRAFTER) Misc Blood-Gluco 2020-06 Yes Use Daily U nivers se 0-11 , Dx: ity of [place] 00:00: E11.65 [place] [facility] (DEXCOM G6 Branch ENTRY LEVEL DRAFTER) Misc Blood-Gluco 2020-06 Yes Use Daily U nivers se 0-11 , Dx: ity of [place] 00:00: E11.65 [place] [facility] (DEXCOM G6 Branch ENTRY LEVEL DRAFTER) Misc Blood-Gluco 2020-06 Yes Use Daily U nivers se 0-11 , Dx: ity of [place] 00:00: E11.65 [place] [facility] (DEXCOM G6 Branch ENTRY LEVEL DRAFTER) Misc Blood-Gluco 2020-06 Yes Use Daily U nivers se 0-11 , Dx: ity of [place] 00:00: E11.65 [place] [facility] (DEXCOM G6 Branch ENTRY LEVEL DRAFTER) Misc Blood-Gluco 2020-06 Yes Use Daily U nivers se 0-11 , Dx: ity of [place] 00:00: E11.65 [place] [facility] (DEXCOM G6 Branch ENTRY LEVEL DRAFTER) Misc Blood-Gluco 2020-06 Yes Use Daily U nivers se 0-11 , Dx: ity of [place] 00:00: E11.65 [place] [facility] (DEXCOM G6 Branch ENTRY LEVEL DRAFTER) Misc Blood-Gluco 2020-06 Yes Use Daily U nivers se 0-11 , Dx: ity of [place] 00:00: E11.65 [place] [facility] (DEXCOM G6 Branch ENTRY LEVEL DRAFTER) Misc Blood-Gluco 2020-06 Yes Use Daily U nivers se 0-11 , Dx: ity of [place] 00:00: E11.65 [place] [facility] (DEXCOM G6 Branch ENTRY LEVEL DRAFTER) Misc Blood-Gluco 2020-06 Yes Use Daily U nivers se 0-11 , Dx: ity of [place] 00:00: E11.65 [place] [facility] (DEXCOM G6 Branch ENTRY LEVEL DRAFTER) Misc Blood-Gluco 2020-06 Yes Use Daily U nivers se 0-11 , Dx: ity of [place] 00:00: E11.65 [place] [facility] (DEXCOM G6 Branch ENTRY LEVEL DRAFTER) Misc Blood-Gluco 2020-06 Yes Use Daily U nivers se 0-11 , Dx: ity of [place] 00:00: E11.65 [place] [facility] (DEXCOM G6 Branch ENTRY LEVEL DRAFTER) Misc Blood-Gluco 2020-06 Yes Use Daily U nivers se 0-11 , Dx: ity of [place] 00:00: E11.65 [place] [facility] (DEXCOM G6 Branch ENTRY LEVEL DRAFTER) Misc Blood-Gluco 2020-06 Yes Use Daily U nivers se 0-11 , Dx: ity of [place] 00:00: E11.65 [place] [facility] (DEXCOM G6 Branch ENTRY LEVEL DRAFTER) Misc Blood-Gluco 2020-06 Yes Use Daily U nivers se 0-11 , Dx: ity of [place] 00:00: E11.65 [place] [facility] (DEXCOM G6 Branch ENTRY LEVEL DRAFTER) Misc Blood-Gluco 2020-06 Yes Use Daily U nivers se 0-11 , Dx: ity of [place] 00:00: E11.65 [place] [facility] (DEXCOM G6 Branch ENTRY LEVEL DRAFTER) Misc Blood-Gluco 2020-06 Yes Use Daily U nivers se 0-11 , Dx: ity of [place] 00:00: E11.65 [place] [facility] (DEXCOM G6 Branch ENTRY LEVEL DRAFTER) Misc Blood-Gluco 2020-06 Yes Use Daily U nivers se 0-11 , Dx: ity of [place] 00:00: E11.65 [place] [facility] (DEXCOM G6 Branch ENTRY LEVEL DRAFTER) Misc Blood-Gluco 2020-06 Yes Use Daily U nivers se 0-11 , Dx: ity of [place] 00:00: E11.65 [place] [facility] (DEXCOM G6 Branch ENTRY LEVEL DRAFTER) Misc Blood-Gluco 2020-06 Yes Use Daily U nivers se 0-11 , Dx: ity of [place] 00:00: E11.65 [place] [facility] (DEXCOM G6 Branch ENTRY LEVEL DRAFTER) Misc Blood-Gluco 2020-06 Yes Use Daily U nivers se 0-11 , Dx: ity of [place] 00:00: E11.65 [place] [facility] (DEXCOM G6 Branch ENTRY LEVEL DRAFTER) Misc Blood-Gluco 2020-06 Yes Use Daily U nivers se 0-11 , Dx: ity of [place] 00:00: E11.65 [place] [facility] (DEXCOM G6 Branch ENTRY LEVEL DRAFTER) Misc Blood-Gluco 2020-06 Yes Use Daily U nivers se 0-11 , Dx: ity of [place] 00:00: E11.65 [place] [facility] (DEXCOM G6 Branch ENTRY LEVEL DRAFTER) Misc Blood-Gluco 2020-06 Yes Use Daily U nivers se 0-11 , Dx: ity of [place] 00:00: E11.65 [place] [facility] (DEXCOM G6 Branch ENTRY LEVEL DRAFTER) Misc Blood-Gluco 2020-06 Yes Use Daily U nivers se 0-11 , Dx: ity of [place] 00:00: E11.65 [place] [facility] (DEXCOM G6 Branch ENTRY LEVEL DRAFTER) Misc Blood-Gluco 2020-06 Yes Use Daily U nivers se 0-11 , Dx: ity of [place] 00:00: E11.65 [place] [facility] (DEXCOM G6 Branch ENTRY LEVEL DRAFTER) Misc Blood-Gluco 2020-06- No Change Uni vers se Sensor 0-11 07-27 sensor ity of (DEXCOM G6 00:00: [place] SENSOR) 00 :00 days,Dx: Medical Marcie E11.65 Branch Blood-Gluco 2020-06- No Change Uni vers se 0-11 07-27 transmitte ity of Transmitter 00:00: 00:00 r every 90 [place] (DEXCOM G6 00 :00 days, Dx: Medi 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 ) Marcie semaglutide Yes 1.2mg inject 1.2 Univers (OZEMPIC 7-27 mg under ity of [place]) 00:00: the skin [place] 00 weekly. Medical Branch semaglutide Yes 1.2mg inject 1.2 Univers (OZEMPIC 7-27 mg under ity of [place]) 00:00: the skin [place] 00 weekly. Medical Branch semaglutide 2021-0 Yes 1.2mg inject 1.2 Univers (OZEMPIC 7-27 mg under ity of [place]) 00:00: the skin [place] 00 weekly. Medical Branch semaglutide 2021-0 Yes 1.2mg inject 1.2 Univers (OZEMPIC 7-27 mg under ity of [place]) 00:00: the skin [place] 00 weekly. Medical Branch semaglutide 2021-0 Yes 1.2mg inject 1.2 Univers (OZEMPIC 7-27 mg under ity of [place]) 00:00: the skin [place] 00 weekly. Medical Branch semaglutide 2021-0 Yes 1.2mg inject 1.2 Univers (OZEMPIC 7-27 mg under ity of [place]) 00:00: the skin [place] 00 weekly. Medical Branch semaglutide 2021-0 Yes 1.2mg inject 1.2 Univers (OZEMPIC 7-27 mg under ity of [place]) 00:00: the skin [place] 00 weekly. Medical Branch semaglutide 2021-0 Yes 1.2mg inject 1.2 Univers (OZEMPIC 7-27 mg under ity of [place]) 00:00: the skin [place] 00 weekly. Medical Branch semaglutide 2021-0 Yes 1.2mg inject 1.2 Univers (OZEMPIC 7-27 mg under ity of [place]) 00:00: the skin [place] 00 weekly. Medical Branch semaglutide 2021-0 Yes 1.2mg inject 1.2 Univers (OZEMPIC 7-27 mg under ity of [place]) 00:00: the skin [place] 00 weekly. Medical Branch semaglutide 2021-0 Yes 1.2mg inject 1.2 Univers (OZEMPIC 7-27 mg under ity of [place]) 00:00: the skin [place] 00 weekly. Medical Branch semaglutide 2021-0 Yes 1.2mg inject 1.2 Univers (OZEMPIC 7-27 mg under ity of [place]) 00:00: the skin [place] 00 weekly. Medical Branch semaglutide 2021-0 Yes 1.2mg inject 1.2 Univers (OZEMPIC 7-27 mg under ity of [place]) 00:00: the skin [place] 00 weekly. Medical Branch semaglutide 2021-0 Yes 1.2mg inject 1.2 Univers (OZEMPIC 7-27 mg under ity of [place]) 00:00: the skin [place] 00 weekly. Medical Branch semaglutide 2021-0 Yes 1.2mg inject 1.2 Univers (OZEMPIC 7-27 mg under ity of [place]) 00:00: the skin [place] 00 weekly. Medical Branch semaglutide 2021-0 Yes 1.2mg inject 1.2 [facility] (OZEMPIC 7-27 mg under ity of [place]) 00:00: the skin [place] 00 weekly. Medical Branch semaglutide 2021-0 Yes 1.2mg inject 1.2 Univers (OZEMPIC 7-27 mg under ity of [place]) 00:00: the skin [place] 00 weekly. Medical Branch semaglutide 2021-0 Yes 1.2mg inject 1.2 [facility] (OZEMPIC 7-27 mg under ity of [place]) 00:00: the skin [place] 00 weekly. Medical Branch semaglutide 2021-0 Yes 1.2mg inject 1.2 [facility] (OZEMPIC 7-27 mg under ity of [place]) 00:00: the skin [place] 00 weekly. Medical Branch semaglutide 2021-0 Yes 1.2mg inject 1.2 [facility] (OZEMPIC 7-27 [facility] [place] 00:[facility]: the skin [place] 00 weekly. [facility] semaglutide 2021-0 Yes 1.2mg inject 1.2 [facility] (OZEMPIC 7-27 [facility] [place] 00:[place]: the skin [place] 00 weekly. [facility] semaglutide 2021-0 Yes 1.2mg inject 1.2 [facility] (OZEMPIC 7-27 [facility] [place] 00:[facility]: the skin [place] 00 weekly. [facility] semaglutide 2021-0 Yes 1.2mg inject 1.2 [facility] (OZEMPIC 7-27 [facility] [place] 00:[facility]: the skin [place] 00 weekly. [facility] semaglutide 2021-0 Yes 1.2mg inject 1.2 [facility] (OZEMPIC 7-27 mg [facility] [place] 00:[facility]: the skin [place] 00 weekly. [facility] semaglutide 2021-0 Yes 1.2mg inject 1.2 [facility] (OZEMPIC 7-27 [facility] [place] 00:[facility]: the skin [place] 00 weekly. [facility] semaglutide 2021-0 Yes 1.2mg inject 1.2 [facility] (OZEMPIC 7-27 mg [facility] [place] 00:[facility]: the skin [place] 00 weekly. [facility] semaglutide 2021-0 Yes 1.2mg inject 1.2 [facility] (OZEMPIC 7-27 mg [facility] [place] 00:[facility]: the skin [place] 00 weekly. [facility] semaglutide 2021-0 Yes 1.2mg inject 1.2 [facility] (OZEMPIC 7-27 mg [facility] [place] 00:[facility]: the skin [place] 00 weekly. [facility] semaglutide 2021-0 Yes 1.2mg inject 1.2 [facility] (OZEMPIC 7-27 mg [facility] [place] 00:[facility]: the skin [place] 00 weekly. [facility] semaglutide 2021-0 Yes 1.2mg inject 1.2 [facility] (OZEMPIC 7-27 mg [facility] [place] 00:[place]: the skin [place] 00 weekly. [facility] semaglutide 2021-0 Yes 1.2mg inject 1.2 [facility] (OZEMPIC 7-27 mg [facility] [place] 00:00: the skin [place] 00 weekly. [facility] semaglutide 2021-0 Yes 1.2mg inject 1.2 [facility] (OZEMPIC 7-27 [facility] [place] 00:[facility]: the skin [place] 00 weekly. [facility] semaglutide 2021-0 Yes 1.2mg inject 1.2 [facility] (OZEMPIC 7-27 [facility] [place] 00:[facility]: the skin [place] 00 weekly. [facility] methocarbam 2021-0 Yes [id number] 750mg Take 1 [facility] 750 mg 7-11 tablet by ity o f tablet 00:00: mouth 4 [place] 00 (four) Medical times Branch daily. methocarbam 2021-0 Yes [id number] 750mg Take 1 [facility] 750 mg 7-11 tablet by ity o f tablet 00:00: mouth 4 [place] 00 (four) Medical times Branch daily. methocarbam 2021-0 Yes [id number] 750mg Take 1 [facility] 750 mg 7-11 tablet by ity o f tablet 00:00: mouth 4 [place] 00 (four) Medical times Branch daily. methocarbam 2021-0 Yes [id number] 750mg Take 1 [facility] o[facility] 750 mg 7-11 tablet by ity o f tablet 00:00: mouth (four) Medical times Branch daily. methocarbam 2020-0 Yes [id number] 750mg Take 1 [facility] o[facility] 750 mg 7-11 tablet by ity o f tablet 00:00: mouth (four) Medical times Branch daily. methocarbam 2020-0 Yes [id number] 750mg Take 1 [facility] 750 mg 7-11 tablet by ity o f tablet 00:00: mouth (four) Medical times Branch daily. methocarbam 2020-0 Yes [id number] 750mg Take 1 [facility] 750 mg 7-11 tablet by ity o f tablet 00:00: mouth (four) Medical times Branch daily. methocarbam 2020-0 Yes [id number] 750mg Take 1 [facility] 750 mg 7-11 tablet by ity o f tablet 00:00: mouth (four) Medical times Branch daily. methocarbam 2020-0 Yes [id number] 750mg Take 1 [facility] 750 mg 7-11 tablet by ity o f tablet 00:00: mouth (four) Medical times Branch daily. methocarbam 2020-0 Yes [id number] 750mg Take 1 [facility] 750 mg 7-11 tablet by ity o f tablet 00:00: mouth (four) Medical times Branch daily. methocarbam 2020-0 Yes [id number] 750mg Take 1 [facility] 750 mg 7-11 tablet by ity o f tablet 00:00: mouth (four) Medical times Branch daily. methocarbam 2020-0 Yes [id number] 750mg Take 1 [facility] 750 mg 7-11 tablet by ity o f tablet 00:00: mouth (four) Medical times Branch daily. methocarbam 1-0 Yes [id number] 750mg Take 1 [facility] 750 mg 7-11 tablet by ity o f tablet 00:00: mouth (four) Medical times Branch daily. methocarbam 1-0 Yes [id number] 750mg Take 1 [facility] 750 mg 7-11 tablet by ity o f tablet 00:00: mouth 4 [place] 00 (four) Medical times Branch daily. methocarbam 2020-0 Yes [id number] 750mg Take 1 [facility] 750 mg 7-11 tablet by ity o f tablet 00:00: mouth (four) Medical times Branch daily. methocarbam 2020-0 Yes [id number] 750mg Take 1 [facility] 750 mg 7-11 tablet by ity o f tablet 00:00: mouth (four) Medical times Branch daily. methocarbam 2020-0 Yes [id number] 750mg Take 1 [facility] 750 mg 7-11 tablet by ity o f tablet 00:00: mouth (four) Medical times Branch daily. methocarbam 2020-0 Yes [id number] 750mg Take 1 [facility] 750 mg 7-11 tablet by ity o f tablet 00:00: mouth (four) Medical times Branch daily. methocarbam 2020-0 Yes [id number] 750mg Take 1 [facility] 750 mg 7-11 tablet by ity o f tablet 00:00: mouth (four) Medical times Branch daily. methocarbam 2020-0 Yes [id number] 750mg Take 1 [facility] 750 mg 7-11 tablet by ity o f tablet 00:00: mouth (four) Medical times Branch daily. methocarbam 2020-0 Yes [id number] 750mg Take 1 [facility] 750 mg 7-11 tablet by ity o f tablet 00:00: mouth (four) Medical times Branch daily. methocarbam 2020-0 Yes [id number] 750mg Take 1 [facility] 750 mg 7-11 tablet by ity o f tablet 00:00: mouth (four) Medical times Branch daily. methocarbam 2020-0 Yes [id number] 750mg Take 1 [facility] 750 mg 7-11 tablet by ity o f tablet 00:00: mouth (four) Medical times Branch daily. methocarbam 1-0 Yes [id number] 750mg Take 1 [facility] 750 mg 7-11 tablet by ity o f tablet 00:00: mouth (four) Medical times Branch daily. methocarbam 1-0 Yes [id number] 750mg Take 1 [facility] 750 mg 7-11 tablet by ity o f tablet 00:00: mouth (four) Medical times Branch daily. methocarbam 2020-0 Yes [id number] 750mg Take 1 [facility] 750 mg 7-11 tablet by ity o f tablet 00:00: mouth (four) Medical times Branch daily. methocarbam 2020-0 Yes [id number] 750mg Take 1 [facility] 750 mg 7-11 tablet by ity o f tablet 00:00: mouth (four) Medical times Branch daily. methocarbam 2020-0 Yes [id number] 750mg Take 1 [facility] 750 mg 7-11 tablet by ity o f tablet 00:00: mouth 4 (four) Medical times Branch daily. methocarbam 2020-0 Yes [id number] 750mg Take 1 [facility] 750 mg 7-11 tablet by ity o f tablet 00:00: mouth (four) Medical times Branch daily. methocarbam 2020-0 Yes [id number] 750mg Take 1 [facility] 750 mg 7-11 tablet by ity o f tablet 00:00: mouth ([facility]) Medical times Branch daily. methocarbam 2020-0 Yes [id number] 750mg Take 1 [facility] o[facility] 750 mg 7-11 tablet by ity o f tablet 00:00: mouth ([facility]) Medical times Branch daily. methocarbam 2020-0 Yes [id number] 750mg Take 1 [facility] o[facility] 750 mg 7-11 tablet by ity o f tablet 00:00: mouth ([facility]) Medical times Branch daily. methocarbam 2020-0 Yes [id number] 750mg Take 1 [facility] o[facility] 750 mg 7-11 tablet by ity o f tablet 00:00: mouth (four) Medical times Branch daily. etodolac 1-0 Yes [facility] 500 mg 6-28 ity of tablet 00:00: Medical Branch etodolac 2020-0 Yes [facility] 500 mg 6-28 ity of tablet 00:00: Medical Branch etodolac 1-0 Yes [facility] 500 mg 6-28 ity of tablet 00:00: Medical Branch etodolac 1-0 Yes [facility] 500 mg 6-28 ity of tablet 00:00: Medical Branch etodolac 2020-0 Yes [facility] 500 mg 6-28 [facility]y of tablet 00:00: [facility] [place] etodolac 2020-0 Yes [facility] 500 mg 6-28 ity of tablet 00:00: [place] [facility] etodolac 2020-0 Yes [facility] 500 mg 6-28 ity of tablet 00:00: [place] [facility] etodolac 2020-0 Yes [facility] 500 mg 6-28 ity of tablet 00:00: [place] [facility] etodolac 2020-0 Yes [facility] 500 mg 6-28 ity of tablet 00:00: [place] [facility] etodolac 2020-0 Yes [facility] 500 mg 6-28 ity of tablet 00:00: [address] etodolac 2020-0 Yes [facility] 500 mg 6-28 ity of tablet 00:00: [address] etodolac 2020-0 Yes [facility] 500 mg 6-28 ity of tablet 00:00: [address] [facility] 2020-0 Yes [facility] 500 mg 6-28 ity of tablet 00:00: [place] [facility] etodolac 2020-0 Yes [facility] 500 mg 6-28 ity of tablet 00:00: [address] etodolac 2020-0 Yes [facility] 500 mg 6-28 ity of tablet 00:00: [address] etodolac 2020-0 Yes [facility] 500 mg 6-28 ity of tablet 00:00: [address] etodolac 2020-0 Yes [facility] 500 mg 6-28 ity of tablet 00:00: [address] etodolac 2020-0 Yes [facility] 500 mg 6-28 ity of tablet 00:00: [place] [facility] etodolac 2020-0 Yes [facility] 500 mg 6-28 ity of tablet 00:00: [address] etodolac 2020-0 Yes [facility] 500 mg 6-28 ity of tablet 00:00: [address] etodolac 2020-0 Yes [facility] 500 mg 6-28 ity of tablet 00:00: [place] [address] [facility] [place] etodolac 2020-0 Yes [facility] 500 mg 6-28 ity of tablet 00:00: [address] etodolac 2020-0 Yes [facility] 500 mg 6-28 ity of tablet 00:00: [place] 00 [facility] etodolac 2021-0 Yes [facility] 500 mg 6-28 ity of tablet 00:00: Medical Branch etodolac 1-0 Yes [facility] 500 mg 6-28 ity of tablet 00:00: Medical Branch etodolac 1-0 Yes [facility] 500 mg 6-28 ity of tablet 00:00: Medical Branch etodolac 1-0 Yes [facility] 500 mg 6-28 ity of tablet 00:00: Medical Branch etodolac 2021-0 Yes [facility] 500 mg 6-28 ity of tablet 00:00: Medical Branch etodolac 2020-0 Yes [facility] 500 mg 6-28 ity of tablet 00:00: Medical Branch etodolac 2020-0 Yes [facility] 500 mg 6-28 ity of tablet 00:00: Medical Branch etodolac 2020-0 Yes [facility] 500 mg 6-28 ity of tablet 00:00: Medical Branch etodolac 2020-0 Yes [facility] 500 mg 6-28 ity of tablet 00:00: Medical Branch etodolac 2020-0 Yes [facility] 500 mg 6-28 ity of tablet 00:00: Medical Branch GABAPENTIN 2021-0 Yes [id number] TAKE 1 U nivers 100 mg 5-24 CAPSULE 3 ity of capsule 00:00: TIMES A Medical Branch GABAPENTIN 2021-0 Yes [id number] TAKE 1 U nivers 100 mg 5-24 CAPSULE 3 ity of capsule 00:00: TIMES A Medical Branch GABAPENTIN 2021-0 Yes [id number] TAKE 1 U nivers 100 mg 5-24 CAPSULE 3 ity of capsule 00:00: TIMES A Medical Branch GABAPENTIN 2021-0 Yes [id number] TAKE 1 U nivers 100 mg 5-24 CAPSULE 3 ity of capsule 00:00: TIMES A Medical Branch GABAPENTIN 2021-0 Yes [id number] TAKE 1 U nivers 100 mg 5-24 CAPSULE 3 ity of capsule 00:00: TIMES A Medical Branch GABAPENTIN 2021-0 Yes [id number] TAKE 1 U nivers 100 mg 5-24 CAPSULE 3 ity of capsule 00:00: TIMES A Medical Branch GABAPENTIN 2021-0 Yes [id number] TAKE 1 U nivers 100 mg 5-24 CAPSULE 3 ity of capsule 00:00: TIMES A Medical Branch GABAPENTIN 2021-0 Yes [id number] TAKE 1 U nivers 100 mg 5-24 CAPSULE 3 ity of capsule 00:00: TIMES A Medical Branch GABAPENTIN 2021-0 Yes [id number] TAKE 1 U nivers 100 mg 5-24 CAPSULE 3 ity of capsule 00:00: TIMES A Medical Branch GABAPENTIN 2021-0 Yes [id number] TAKE 1 U nivers 100 mg 5-24 CAPSULE 3 ity of capsule 00:00: TIMES A Medical Branch GABAPENTIN 2021-0 Yes [id number] TAKE 1 U nivers 100 mg 5-24 CAPSULE 3 ity of capsule 00:00: TIMES A Medical Branch GABAPENTIN 2021-0 Yes [id number] TAKE 1 U nivers 100 mg 5-24 CAPSULE 3 ity of capsule 00:00: TIMES A Medical Branch GABAPENTIN 2021-0 Yes [id number] TAKE 1 U nivers 100 mg 5-24 CAPSULE 3 ity of capsule 00:00: TIMES A Medical Branch GABAPENTIN 2021-0 Yes [id number] TAKE 1 U nivers 100 mg 5-24 CAPSULE 3 ity of capsule 00:00: TIMES A Medical Branch GABAPENTIN 2021-0 Yes [id number] TAKE 1 U nivers 100 mg 5-24 CAPSULE 3 ity of capsule 00:00: TIMES A Medical Branch GABAPENTIN 2021-0 2022- No [id number] TAKE 1 [facility] 100 mg 5-24 12-11 CAPSULE 3 ity of capsule 00:00: 00:00 TIMES A 00 : Medical Branch ACCU-CHEK 2019-1 Yes Use to [employer] GUIDE 1-14 check ity of GLUCOSE 00:00: [place] 3[place] METER Misc 00 daily. Medical DX:E11.65 Branch ACCU-CHEK 2019-1 Yes Use to [email or web address] GUIDE 1-14 check ity of GLUCOSE 00:00: [place] MET[place]isc 00 daily. Medical DX:E11.65 Branch ACCU-CHEK 2019-1 Yes Use to [email or web address] GUIDE 1-14 check ity of GLUCOSE 00:00: [place] MET[place]isc 00 daily. Medical DX:E11.65 Branch ACCU-CHEK 2019-1 Yes Use to [email or web address] GUIDE 1-14 check ity of GLUCOSE 00:00: [place] MET[place]isc 00 daily. Medical DX:E11.65 Branch ACCU-CHEK 2019-1 Yes Use to [email or web address] GUIDE 1-14 check ity of GLUCOSE 00:00: glucose 3[place] MET[place]isc 00 daily. Medical DX:E11.65 Branch ACCU-CHEK 2019- Yes Use to [employer] GUIDE 1-14 check ity of GLUCOSE 00:00: glucose 3[place] MET[place] Misc 00 daily. Medical DX:E11.65 Branch ACCU-CHEK 2019- Yes Use to [employer] GUIDE 1-14 check ity of GLUCOSE 00:00: glucose 3X [place] METER Misc 00 daily. Medical DX:E11.65 Branch ACCU-CHEK 2019- Yes Use to [email or web address] GUIDE 1-14 check ity of GLUCOSE 00:00: glucose 3[place] METER Misc 00 daily. Medical DX:E11.65 Branch ACCU-CHEK 2019- Yes Use to [email or web address] GUIDE 1-14 check ity of GLUCOSE 00:00: glucose 3[place] METER Misc 00 daily. Medical DX:E11.65 Branch ACCU-CHEK 2019- Yes Use to [email or web address] GUIDE 1-14 check ity of GLUCOSE 00:00: glucose 3X [place] METER Misc 00 daily. Medical DX:E11.65 Branch ACCU-CHEK 2019- Yes Use to [email or web address] GUIDE 1-14 check ity of GLUCOSE 00:00: glucose 3X [place] MET[place] Misc 00 daily. Medical DX:E11.65 Branch ACCU-CHEK 2019- Yes Use to [email or web address] GUIDE 1-14 check ity of GLUCOSE 00:00: glucose 3[place] METER Misc 00 daily. Medical DX:E11.65 Branch ACCU-CHEK 2019- Yes Use to [email or web address] GUIDE 1-14 check ity of GLUCOSE 00:00: glucose 3[place] METER Misc 00 daily. Medical DX:E11.65 Branch ACCU-CHEK 2019- Yes Use to [email or web address] GUIDE 1-14 check ity of GLUCOSE 00:00: glucose 3[place] MET[place] Misc 00 daily. Medical DX:E11.65 Branch ACCU-CHEK 2019- Yes Use to Univer s GUIDE 1-14 check ity of GLUCOSE 00:00: glucose 3X [place] METER Misc 00 daily. Medical DX:E11.65 Branch ACCU-CHEK 2019-1 Yes Use to [email or web address] GUIDE 1-14 check ity of GLUCOSE 00:00: glucose 3X [place] METER Misc 00 daily. Medical DX:E11.65 Branch ACCU-CHEK 2019-1 Yes Use to [email or web address] GUIDE 1-14 check ity of GLUCOSE 00:00: glucose 3X [place] METER Misc 00 daily. Medical DX:E11.65 Branch ACCU-CHEK 2019-1 Yes Use to [email or web address] GUIDE 1-14 check ity of GLUCOSE 00:00: glucose 3X [place] METER Misc 00 daily. Medical DX:E11.65 Branch ACCU-CHEK 2019-1 Yes Use to [email or web address] GUIDE 1-14 check ity of GLUCOSE 00:00: glucose 3[place] METER Misc 00 daily. Medical DX:E11.65 Branch ACCU-CHEK 2019-1 Yes Use to [email or web address] GUIDE 1-14 check ity of GLUCOSE 00:00: glucose 3[place] METER Misc 00 daily. Medical DX:E11.65 Branch ACCU-CHEK 2019-1 Yes Use to [email or web address] GUIDE 1-14 check ity of GLUCOSE 00:00: glucose 3[place] METER Misc 00 daily. Medical DX:E11.65 Branch ACCU-CHEK 2019-1 Yes Use to [email or web address] GUIDE -14 check ity of GLUCOSE 00:00: glucose 3X [place] METER Misc 00 daily. Medical DX:E11.65 Branch ACCU-CHEK 2019-1 Yes Use to [email or web address] GUIDE 1-14 check ity of GLUCOSE 00:00: glucose 3X [place] METER Misc 00 daily. Medical DX:E11.65 Branch ACCU-CHEK 2019-1 Yes Use to [email or web address] GUIDE 1-14 check ity of GLUCOSE 00:00: glucose 3X [place] METER Misc 00 daily. Medical DX:E11.65 Branch ACCU-CHEK 2019-1 Yes Use to [email or web address] GUIDE 1-14 check ity of GLUCOSE 00:00: glucose 3X [place] METER Misc 00 daily. Medical DX:E11.65 Branch ACCU-CHEK 2019-1 Yes Use to [email or web address] GUIDE 1-14 check ity of GLUCOSE 00:00: glucose 3X [place] METER Misc 00 daily. Medical DX:E11.65 Branch ACCU-CHEK 2019-1 Yes Use to [employer] GUIDE 1-14 check ity of GLUCOSE 00:00: glucose 3X [place] METER Misc 00 daily. Medical DX:E11.65 Branch ACCU-CHEK 2019-1 Yes Use to [employer] GUIDE 1-14 check ity of GLUCOSE 00:00: glucose 3X [place] METER Misc 00 daily. Medical DX:E11.65 Branch ACCU-CHEK 2019-1 Yes Use to [employer] GUIDE 1-14 check ity of GLUCOSE 00:00: glucose 3X [place] METER Misc 00 daily. Medical DX:E11.65 Branch ACCU-CHEK 2019-1 Yes Use to [employer] GUIDE 1-14 check ity of GLUCOSE 00:00: glucose 3X [place] METER Misc 00 daily. Medical DX:E11.65 Branch ACCU-CHEK 2019- Yes Use to [employer] GUIDE 1-14 check ity of GLUCOSE 00:00: glucose 3X [place] METER Misc 00 daily. Medical DX:E11.65 Branch ACCU-CHEK 2019- Yes Use to [employer] GUIDE 1-14 check ity of GLUCOSE 00:00: glucose 3X [place] METER Misc 00 daily. Medical DX:E11.65 Branch ACCU-CHEK 2019-1 Yes Use to [employer] GUIDE 1-14 check ity of GLUCOSE 00:00: glucose 3X [place] METER Misc 00 daily. Medical DX:E11.65 Branch Immunizations Ordered Filled Immunization Date Status Comments Sour e Immunization Name Name SARS-COV-2 COVID-19 2020-09-06 Completed Unive rsity of PFIZER VACCINE 00:00:00 [facility] SARS-COV-2 COVID-19 2020-09-06 Completed Unive rsity of PFIZER VACCINE 00:00:00 [facility] SARS-COV-2 COVID-19 2020-09-06 Completed Unive rsity of PFIZER VACCINE 00:00:00 [facility] SARS-COV-2 COVID-19 2020-09-06 Completed Unive rsity of PFIZER VACCINE 00:00:00 [facility] SARS-COV-2 COVID-19 2020-09-06 Completed Unive rsity of PFIZER VACCINE 00:00:00 [facility] Branch SARS-COV-2 COVID-19 2020-09-06 Completed Unive rsity of PFIZER VACCINE 00:00:00 [place] [facility] SARS-COV-2 COVID-19 2020-09-06 Completed Unive rsity of PFIZER VACCINE 00:00:00 [facility] Branch SARS-COV-2 COVID-19 2020-09-06 Completed Unive rsity of PFIZER VACCINE 00:00:00 [facility] Branch SARS-COV-2 COVID-19 2020-09-06 Completed Unive rsity of PFIZER VACCINE 00:00:00 [facility] SARS-COV-2 COVID-19 2020-09-06 Completed Unive rsity of PFIZER VACCINE 00:00:00 [facility] Branch SARS-COV-2 COVID-19 2020-09-06 Completed Unive rsity of PFIZER VACCINE 00:00:00 [facility] Branch SARS-COV-2 COVID-19 2020-09-06 Completed Unive rsity of PFIZER VACCINE 00:00:00 [facility] Branch SARS-COV-2 COVID-19 2020-09-06 Completed Unive rsity of PFIZER VACCINE 00:00:00 [facility] SARS-COV-2 COVID-19 2020-09-06 Completed Unive rsity of PFIZER VACCINE 00:00:00 [facility] Branch SARS-COV-2 COVID-19 2020-09-06 Completed Unive rsity of PFIZER VACCINE 00:00:00 [facility] Branch SARS-COV-2 COVID-19 2020-09-06 Completed Unive rsity of PFIZER VACCINE 00:00:00 [facility] Branch SARS-COV-2 COVID-19 2020-09-06 Completed Unive rsity of PFIZER VACCINE 00:00:00 [facility] SARS-COV-2 COVID-19 2020-09-06 Completed Unive rsity of PFIZER VACCINE 00:00:00 [facility] SARS-COV-2 COVID-19 2020-09-06 Completed Unive rsity of PFIZER VACCINE 00:00:00 [facility] SARS-COV-2 COVID-19 2020-09-06 Completed Unive rsity of PFIZER VACCINE 00:00:00 [facility] Branch SARS-COV-2 COVID-19 2020-09-06 Completed Unive rsity of PFIZER VACCINE 00:00:00 [facility] SARS-COV-2 COVID-19 2020-09-06 Completed Unive rsity of PFIZER VACCINE 00:00:00 [facility] Branch SARS-COV-2 COVID-19 2020-09-06 Completed Unive rsity of PFIZER VACCINE 00:00:00 [facility] SARS-COV-2 COVID-19 2020-09-06 Completed Unive rsity of PFIZER VACCINE 00:00:00 [facility] SARS-COV-2 COVID-19 2020-09-06 Completed Unive rsity of PFIZER VACCINE 00:00:00 [facility] SARS-COV-2 COVID-19 2020-09-06 Completed Unive rsity of PFIZER VACCINE 00:00:00 [facility] SARS-COV-2 COVID-19 2020-09-06 Completed Unive rsity of PFIZER VACCINE 00:00:00 [facility] Branch SARS-COV-2 COVID-19 2020-09-06 Completed Unive rsity of PFIZER VACCINE 00:00:00 [facility] SARS-COV-2 COVID-19 2020-09-06 Completed Unive rsity of PFIZER VACCINE 00:00:00 [facility] SARS-COV-2 COVID-19 2020-09-06 Completed Unive rsity of PFIZER VACCINE 00:00:00 [facility] SARS-COV-2 COVID-19 2020-09-06 Completed Unive rsity of PFIZER VACCINE 00:00:00 [facility] SARS-COV-2 COVID-19 2020-09-06 Completed Unive rsity of PFIZER VACCINE 00:00:00 [facility] Branch SARS-COV-2 COVID-19 2020-09-06 Completed Unive rsity of PFIZER VACCINE 00:00:00 [facility] SARS-COV-2 COVID-19 2020-08-16 Completed Unive rsity of PFIZER VACCINE 00:00:00 [facility] SARS-COV-2 COVID-19 2020-08-16 Completed Unive rsity of PFIZER VACCINE 00:00:00 [facility] SARS-COV-2 COVID-19 2020-08-16 Completed Unive rsity of PFIZER VACCINE 00:00:00 [place] [facility] SARS-COV-2 COVID-19 2020-08-16 Completed Unive rsity of PFIZER VACCINE 00:00:00 [facility] SARS-COV-2 COVID-19 2020-08-16 Completed Unive rsity of PFIZER VACCINE 00:00:00 [facility] SARS-COV-2 COVID-19 2020-08-16 Completed Unive rsity of PFIZER VACCINE 00:00:00 [facility] SARS-COV-2 COVID-19 2020-08-16 Completed Unive rsity of PFIZER VACCINE 00:00:00 [facility] SARS-COV-2 COVID-19 2020-08-16 Completed Unive rsity of PFIZER VACCINE 00:00:00 [facility] SARS-COV-2 COVID-19 2020-08-16 Completed Unive rsity of PFIZER VACCINE 00:00:00 [facility] SARS-COV-2 COVID-19 2020-08-16 Completed Unive rsity of PFIZER VACCINE 00:00:00 [facility] SARS-COV-2 COVID-19 2020-08-16 Completed Unive rsity of PFIZER VACCINE 00:00:00 [facility] SARS-COV-2 COVID-19 2020-08-16 Completed Unive rsity of PFIZER VACCINE 00:00:00 [facility] SARS-COV-2 COVID-19 2020-08-16 Completed Unive rsity of PFIZER VACCINE 00:00:00 [facility] SARS-COV-2 COVID-19 2020-08-16 Completed Unive rsity of PFIZER VACCINE 00:00:00 [facility] SARS-COV-2 COVID-19 2020-08-16 Completed Unive rsity of PFIZER VACCINE 00:00:00 [facility] SARS-COV-2 COVID-19 2020-08-16 Completed Unive rsity of PFIZER VACCINE 00:00:00 [facility] Branch SARS-COV-2 COVID-19 2020-08-16 Completed Unive rsity of PFIZER VACCINE 00:00:00 [facility] SARS-COV-2 COVID-19 2020-08-16 Completed Unive rsity of PFIZER VACCINE 00:00:00 [facility] Branch SARS-COV-2 COVID-19 2020-08-16 Completed Unive rsity of PFIZER VACCINE 00:00:00 [facility] SARS-COV-2 COVID-19 2020-08-16 Completed Unive rsity of PFIZER VACCINE 00:00:00 [facility] SARS-COV-2 COVID-19 2020-08-16 Completed Unive rsity of PFIZER VACCINE 00:00:00 [facility] SARS-COV-2 COVID-19 2020-08-16 Completed Unive rsity of PFIZER VACCINE 00:00:00 [facility] SARS-COV-2 COVID-19 2020-08-16 Completed Unive rsity of PFIZER VACCINE 00:00:00 [facility] SARS-COV-2 COVID-19 2020-08-16 Completed Unive rsity of PFIZER VACCINE 00:00:00 [facility] SARS-COV-2 COVID-19 2020-08-16 Completed Unive rsity of PFIZER VACCINE 00:00:00 [facility] SARS-COV-2 COVID-19 2020-08-16 Completed Unive rsity of PFIZER VACCINE 00:00:00 [facility] SARS-COV-2 COVID-19 2020-08-16 Completed Unive rsity of PFIZER VACCINE 00:00:00 [facility] SARS-COV-2 COVID-19 2020-08-16 Completed Unive rsity of PFIZER VACCINE 00:00:00 [facility] SARS-COV-2 COVID-19 2020-08-16 Completed Unive rsity of PFIZER VACCINE 00:00:00 [facility] SARS-COV-2 COVID-19 2020-08-16 Completed Unive rsity of PFIZER VACCINE 00:00:00 [facility] SARS-COV-2 COVID-19 2020-08-16 Completed Unive rsity of PFIZER VACCINE 00:00:00 [facility] SARS-COV-2 COVID-19 2020-08-16 Completed Unive rsity of PFIZER VACCINE 00:00:00 [facility] SARS-COV-2 COVID-19 2020-08-16 Completed Unive rsity of PFIZER VACCINE 00:00:00 [facility] Influenza Virus 2020-03-21 Completed Universit y of Vaccine 00:00:00 [facility] Influenza Virus 2020-03-21 Completed Universit y of Vaccine Recomb Quad 00:00:00 [place] [facility], Preserv and ABX Branc h Free 18-64 YRS Influenza Virus 2020-03-21 Completed Universit y of Vaccine 00:00:00 [facility] Influenza Virus 2020-03-21 Completed Universit y of Vaccine Recomb Quad 00:00:00 [place] [facility], Preserv and ABX Branc h Free 18-64 YRS Influenza Virus 2020-03-21 Completed Universit y of Vaccine 00:00:00 [facility] Influenza Virus 2020-03-21 Completed Universit y of Vaccine Recomb Quad 00:00:00 [place] [facility], Preserv and ABX Branc h Free 18-64 YRS Influenza Virus 2020-03-21 Completed Universit y of Vaccine 00:00:00 [facility] Influenza Virus 2020-03-21 Completed Universit y of Vaccine Recomb Quad 00:00:00 [place] [facility], Preserv and ABX Branc h Free 18-64 YRS Influenza Virus 2020-03-21 Completed Universit y of Vaccine 00:00:00 [facility] Influenza Virus 2020-03-21 Completed Universit y of Vaccine Recomb Quad 00:00:00 [place] [facility], Preserv and ABX Branc h Free 18-64 YRS Influenza Virus 2020-03-21 Completed Universit y of Vaccine 00:00:00 [facility] Influenza Virus 2020-03-21 Completed Universit y of Vaccine Recomb Quad 00:00:00 [place] [facility], Preserv and ABX Branc h Free 18-64 YRS Influenza Virus 2020-03-21 Completed Universit y of Vaccine 00:00:00 [facility] Influenza Virus 2020-03-21 Completed Universit y of Vaccine Recomb Quad 00:00:00 [place] [facility], Preserv and ABX Branc h Free 18-64 YRS Influenza Virus 2020-03-21 Completed Universit y of Vaccine 00:00:00 [facility] Influenza Virus 2020-03-21 Completed Universit y of Vaccine Recomb Quad 00:00:00 [place] [facility], Preserv and ABX Branc h Free 18-64 YRS Influenza Virus 2020-03-21 Completed Universit y of Vaccine 00:00:00 [facility] Influenza Virus 2020-03-21 Completed Universit y of Vaccine Recomb Quad 00:00:00 [place] [facility], Preserv and ABX Branc h Free 18-64 YRS Influenza Virus 2020-03-21 Completed Universit y of Vaccine 00:00:00 [facility] Influenza Virus 2020-03-21 Completed Universit y of Vaccine Recomb Quad 00:00:00 [facility], Preserv and ABX Branc h Free 18-64 YRS Influenza Virus 2020-03-21 Completed [facility] Vaccine 00:00:00 [facility] Influenza Virus 2020-03-21 Completed [facility] of Vaccine Recomb Quad 00:00:00 [facility], Preserv and ABX Branc h Free 18-64 YRS Influenza Virus 2020-03-21 Completed [facility] Vaccine 00:00:00 [facility] Influenza Virus 2020-03-21 Completed [facility] of Vaccine Recomb Quad 00:00:00 [facility], Preserv and ABX Branc h Free 18-64 YRS Influenza Virus 2020-03-21 Completed [facility] Vaccine 00:00:00 [facility] Influenza Virus 2020-03-21 Completed [facility] of Vaccine Recomb Quad 00:00:00 [facility], Preserv and ABX Branc h Free 18-64 YRS Influenza Virus 2020-03-21 Completed [facility] Vaccine 00:00:00 [facility] Influenza Virus 2020-03-21 Completed [facility] of Vaccine Recomb Quad 00:00:00 [facility], Preserv and ABX Branc h Free 18-64 YRS Influenza Virus 2020-03-21 Completed [facility] Vaccine 00:00:00 [facility] Influenza Virus 2020-03-21 Completed [facility] of Vaccine Recomb Quad 00:00:00 [facility], Preserv and ABX Branc h Free 18-64 YRS Influenza Virus 2020-03-21 Completed [facility] Vaccine 00:00:00 [facility] Influenza Virus 2020-03-21 Completed [facility] of Vaccine Recomb Quad 00:00:00 [facility], Preserv and ABX Branc h Free 18-64 YRS Influenza Virus 2020-03-21 Completed [facility] Vaccine 00:00:00 [facility] Influenza Virus 2020-03-21 Completed [facility] of Vaccine Recomb Quad 00:00:00 [facility], Preserv and ABX Branc h Free 18-64 YRS Influenza Virus 2020-03-21 Completed [facility] Vaccine 00:00:00 [facility] Influenza Virus 2020-03-21 Completed [facility] of Vaccine Recomb Quad 00:00:00 [facility], Preserv and ABX Branc h Free 18-64 YRS Influenza Virus 2020-03-21 Completed [facility] Vaccine 00:00:00 [facility] Influenza Virus 2020-03-21 Completed [facility] of Vaccine Recomb Quad 00:00:00 [facility], Preserv and ABX Branc h Free 18-64 YRS Influenza Virus 2020-03-21 Completed [facility] of Vaccine 00:00:00 [facility] Influenza Virus 2020-03-21 Completed [facility] of Vaccine Recomb Quad 00:00:00 [facility], Preserv and ABX Branc h Free 18-64 YRS Influenza Virus 2020-03-21 Completed [facility] of Vaccine 00:00:00 [facility] Influenza Virus 2020-03-21 Completed [facility] of Vaccine Recomb Quad 00:00:00 [facility], Preserv and ABX Branc h Free 18-64 YRS Influenza Virus 2020-03-21 Completed [facility] Vaccine 00:00:00 [facility] Influenza Virus 2020-03-21 Completed [facility] of Vaccine Recomb Quad 00:00:00 [facility], Preserv and ABX Branc h Free 18-64 YRS Influenza Virus 2020-03-21 Completed [facility] Vaccine 00:00:00 [facility] Influenza Virus 2020-03-21 Completed [facility] of Vaccine Recomb Quad 00:00:00 [facility], Preserv and ABX Branc h Free 18-64 YRS Influenza Virus 2020-03-21 Completed [facility] Vaccine 00:00:00 [facility] Influenza Virus 2020-03-21 Completed [facility] of Vaccine Recomb Quad 00:00:00 [facility], Preserv and ABX Branc h Free 18-64 YRS Influenza Virus 2020-03-21 Completed [facility] Vaccine 00:00:00 [facility] Influenza Virus 2020-03-21 Completed [facility] of Vaccine Recomb Quad 00:00:00 [facility], Preserv and ABX Branc h Free 18-64 YRS Influenza Virus 2020-03-21 Completed [facility] Vaccine 00:00:00 [facility] Influenza Virus 2020-03-21 Completed [facility] of Vaccine Recomb Quad 00:00:00 [facility], Preserv and ABX Branc h Free 18-64 YRS Influenza Virus 2020-03-21 Completed [facility] Vaccine 00:00:00 [facility] Influenza Virus 2020-03-21 Completed [facility] of Vaccine Recomb Quad 00:00:00 [facility], Preserv and ABX Branc h Free 18-64 YRS Influenza Virus 2020-03-21 Completed [facility] of Vaccine 00:00:00 [facility] Influenza Virus 2020-03-21 Completed [facility] of Vaccine Recomb Quad 00:00:00 [facility], Preserv and ABX Branc h Free 18-64 YRS Influenza Virus 2020-03-21 Completed [facility] Vaccine 00:00:00 [facility] Influenza Virus 2020-03-21 Completed [facility] of Vaccine Recomb Quad 00:00:00 [facility], Preserv and ABX Branc h Free 18-64 YRS Influenza Virus 2020-03-21 Completed [facility] Vaccine 00:00:00 [facility] Influenza Virus 2020-03-21 Completed [facility] of Vaccine Recomb Quad 00:00:00 [facility], Preserv and ABX Branc h Free 18-64 YRS Influenza Virus 2020-03-21 Completed [facility] Vaccine 00:00:00 [facility] Influenza Virus 2020-03-21 Completed [facility] of Vaccine Recomb Quad 00:00:00 [facility], Preserv and ABX Branc h Free 18-64 YRS Influenza Virus 2020-03-21 Completed [facility] Vaccine 00:00:00 [facility] Influenza Virus 2020-03-21 Completed [facility] of Vaccine Recomb Quad 00:00:00 [facility], Preserv and ABX Branc h Free 18-64 YRS Influenza Virus 2020-03-21 Completed [facility] Vaccine 00:00:00 [facility] Influenza Virus 2020-03-21 Completed [facility] of Vaccine Recomb Quad 00:00:00 [facility], Preserv and ABX Branc h Free 18-64 YRS TDAP 2019-04-26 Completed [facility] of 00:00:00 [facility] Influenza Virus 2019-04-26 Completed [facility] of Vaccine Quad .5 mL 00:00:00 [facility] 6+ MO Branch Pneumococcal 2019-04-26 Completed University o f Polysaccharide, 00:00:00 [facility] PPSV23 (PNEUMOVAX) Branch Influenza Virus 2019-04-26 Completed [facility] y of Vaccine Quad IM 3+ 00:00:00 [facility] TDAP 2019-04-26 Completed [facility] of 00:00:00 [facility] Influenza Virus 2019-04-26 Completed [facility] of Vaccine Quad .5 mL 00:00:00 [facility] 6+ MO Branch Pneumococcal 2019-04-26 Completed [facility] o f Polysaccharide, 00:00:00 [facility] PPSV23 (PNEUMOVAX) Branch Influenza Virus 2019-04-26 Completed [facility] of Vaccine Quad IM 3+ 00:00:00 [facility] TDAP 2019-04-26 Completed [facility] 00:00:00 [facility] Influenza Virus 2019-04-26 Completed [facility] of Vaccine Quad .5 mL 00:00:00 [facility] 6+ MO Branch Pneumococcal 2019-04-26 Completed [facility] o f Polysaccharide, 00:00:00 [facility] PPSV23 (PNEUMOVAX) Branch Influenza Virus 2019-04-26 Completed [facility] of Vaccine Quad IM 3+ 00:00:00 [facility] TDAP 2019-04-26 Completed [facility] 00:00:00 [facility] Influenza Virus 2019-04-26 Completed [facility] of Vaccine Quad .5 mL 00:00:00 [facility] 6+ MO Branch Pneumococcal 2019-04-26 Completed [facility] o f Polysaccharide, 00:00:00 [facility] PPSV23 (PNEUMOVAX) Branch Influenza Virus 2019-04-26 Completed [facility] of Vaccine Quad IM 3+ 00:00:00 [facility] TDAP 2019-04-26 Completed [facility] 00:00:00 [facility] Influenza Virus 2019-04-26 Completed [facility] of Vaccine Quad .5 mL 00:00:00 [facility] 6+ MO Branch Pneumococcal 2019-04-26 Completed [facility] o f Polysaccharide, 00:00:00 [facility] PPSV23 (PNEUMOVAX) Branch Influenza Virus 2019-04-26 Completed [facility] of Vaccine Quad IM 3+ 00:00:00 [facility] TDAP 2019-04-26 Completed [facility] of 00:00:00 [facility] Influenza Virus 2019-04-26 Completed [facility] of Vaccine Quad .5 mL 00:00:00 [facility] 6+ MO Branch Pneumococcal 2019-04-26 Completed [facility] o f Polysaccharide, 00:00:00 [facility] PPSV23 (PNEUMOVAX) Branch Influenza Virus 2019-04-26 Completed [facility] of Vaccine Quad IM 3+ 00:00:00 [facility] TDAP 2019-04-26 Completed [facility] of 00:00:00 [facility] Influenza Virus 2019-04-26 Completed [facility] of Vaccine Quad .5 mL 00:00:00 [facility] 6+ MO Branch Pneumococcal 2019-04-26 Completed [facility] o f Polysaccharide, 00:00:00 [facility] PPSV23 (PNEUMOVAX) Branch Influenza Virus 2019-04-26 Completed [facility] of Vaccine Quad IM 3+ 00:00:00 [facility] TDAP 2019-04-26 Completed [facility] of 00:00:00 [facility] Influenza Virus 2019-04-26 Completed [facility] of Vaccine Quad .5 mL 00:00:00 [facility] 6+ MO Branch Pneumococcal 2019-04-26 Completed [facility] o f Polysaccharide, 00:00:00 [facility] PPSV23 (PNEUMOVAX) Branch Influenza Virus 2019-04-26 Completed [facility] of Vaccine Quad IM 3+ 00:00:00 [facility] TDAP 2019-04-26 Completed [facility] of 00:00:00 [facility] Influenza Virus 2019-04-26 Completed [facility] of Vaccine Quad .5 mL 00:00:00 [facility] 6+ MO Branch Pneumococcal 2019-04-26 Completed [facility] o f Polysaccharide, 00:00:00 [facility] PPSV23 (PNEUMOVAX) Branch Influenza Virus 2019-04-26 Completed [facility] of Vaccine Quad IM 3+ 00:00:00 [facility] TDAP 2019-04-26 Completed [facility] of 00:00:00 [facility] Influenza Virus 2019-04-26 Completed [facility] of Vaccine Quad .5 mL 00:00:00 [facility] 6+ MO Branch Pneumococcal 2019-04-26 Completed [facility] o f Polysaccharide, 00:00:00 [facility] PPSV23 (PNEUMOVAX) Branch Influenza Virus 2019-04-26 Completed [facility] y of Vaccine Quad IM 3+ 00:00:00 [facility] TDAP 2019-04-26 Completed [facility] of 00:00:00 [facility] Influenza Virus 2019-04-26 Completed [facility] of Vaccine Quad .5 mL 00:00:00 [facility] 6+ MO Branch Pneumococcal 2019-04-26 Completed [facility] o f Polysaccharide, 00:00:00 [facility] PPSV23 (PNEUMOVAX) Branch Influenza Virus 2019-04-26 Completed [facility] y of Vaccine Quad IM 3+ 00:00:00 [facility] TDAP 2019-04-26 Completed [facility] of 00:00:00 [facility] Influenza Virus 2019-04-26 Completed [facility] of Vaccine Quad .5 mL 00:00:00 [facility] 6+ MO Branch Pneumococcal 2019-04-26 Completed [facility] o f Polysaccharide, 00:00:00 [facility] PPSV23 (PNEUMOVAX) Branch Influenza Virus 2019-04-26 Completed [facility] of Vaccine Quad IM 3+ 00:00:00 [facility] TDAP 2019-04-26 Completed [facility] of 00:00:00 [facility] Influenza Virus 2019-04-26 Completed [facility] y of Vaccine Quad .5 mL 00:00:00 [facility] IM 6+ MO Branch Pneumococcal 2019-04-26 Completed [facility] o f Polysaccharide, 00:00:00 [facility] PPSV23 (PNEUMOVAX) Branch Influenza Virus 2019-04-26 Completed [facility] y of Vaccine Quad IM 3+ 00:00:00 [facility] TDAP 2019-04-26 Completed [facility] of 00:00:00 [facility] Influenza Virus 2019-04-26 Completed [facility] y of Vaccine Quad .5 mL 00:00:00 [facility] IM 6+ MO Branch Pneumococcal 2019-04-26 Completed [facility] o f Polysaccharide, 00:00:00 [facility] PPSV23 (PNEUMOVAX) Branch Influenza Virus 2019-04-26 Completed [facility] y of Vaccine Quad IM 3+ 00:00:00 [facility] TDAP 2019-04-26 Completed [facility] of 00:00:00 [facility] Influenza Virus 2019-04-26 Completed [facility] y of Vaccine Quad .5 mL 00:00:00 [facility] 6+ MO Branch Pneumococcal 2019-04-26 Completed [facility] o f Polysaccharide, 00:00:00 [facility] PPSV23 (PNEUMOVAX) Branch Influenza Virus 2019-04-26 Completed [facility] y of Vaccine Quad IM 3+ 00:00:00 [facility] TDAP 2019-04-26 Completed [facility] of 00:00:00 [facility] Influenza Virus 2019-04-26 Completed [facility] y of Vaccine Quad .5 mL 00:00:00 [facility] 6+ MO Branch Pneumococcal 2019-04-26 Completed [facility] o f Polysaccharide, 00:00:00 [facility] PPSV23 (PNEUMOVAX) Branch Influenza Virus 2019-04-26 Completed [facility] y of Vaccine Quad IM 3+ 00:00:00 [facility] TDAP 2019-04-26 Completed [facility] of 00:00:00 [facility] Influenza Virus 2019-04-26 Completed [facility] y of Vaccine Quad .5 mL 00:00:00 [facility] IM 6+ MO Branch Pneumococcal 2019-04-26 Completed [facility] o f Polysaccharide, 00:00:00 [facility] PPSV23 (PNEUMOVAX) Branch Influenza Virus 2019-04-26 Completed [facility] y of Vaccine Quad IM 3+ 00:00:00 [facility] TDAP 2019-04-26 Completed [facility] of 00:00:00 [facility] Influenza Virus 2019-04-26 Completed [facility] y of Vaccine Quad .5 mL 00:00:00 [facility] 6+ MO Branch Pneumococcal 2019-04-26 Completed University o f Polysaccharide, 00:00:00 [facility] ical PPSV23 (PNEUMOVAX) Branch Influenza Virus 2019-04-26 Completed [facility] y of Vaccine Quad IM 3+ 00:00:00 [facility] TDAP 2019-04-26 Completed [facility] of 00:00:00 [facility] Influenza Virus 2019-04-26 Completed [facility] y of Vaccine Quad .5 mL 00:00:00 [facility] 6+ MO Branch Pneumococcal 2019-04-26 Completed [facility] o f Polysaccharide, 00:00:00 [facility] ical PPSV23 (PNEUMOVAX) Branch Influenza Virus 2019-04-26 Completed [facility] y of Vaccine Quad IM 3+ 00:00:00 [facility] TDAP 2019-04-26 Completed [facility] of 00:00:00 [facility] Influenza Virus 2019-04-26 Completed [facility] y of Vaccine Quad .5 mL 00:00:00 [facility] 6+ MO Branch Pneumococcal 2019-04-26 Completed [facility] o f Polysaccharide, 00:00:00 [facility] PPSV23 (PNEUMOVAX) Branch Influenza Virus 2019-04-26 Completed [facility] y of Vaccine Quad IM 3+ 00:00:00 [facility] TDAP 2019-04-26 Completed [facility] of 00:00:00 [facility] Influenza Virus 2019-04-26 Completed [facility] y of Vaccine Quad .5 mL 00:00:00 [facility] 6+ MO Branch Pneumococcal 2019-04-26 Completed [facility] o f Polysaccharide, 00:00:00 [facility] PPSV23 (PNEUMOVAX) Branch Influenza Virus 2019-04-26 Completed [facility] y of Vaccine Quad IM 3+ 00:00:00 [facility] TDAP 2019-04-26 Completed [facility] of 00:00:00 [facility] Influenza Virus 2019-04-26 Completed [facility] y of Vaccine Quad .5 mL 00:00:00 [facility] 6+ MO Branch Pneumococcal 2019-04-26 Completed [facility] o f Polysaccharide, 00:00:00 [facility] PPSV23 (PNEUMOVAX) Branch Influenza Virus 2019-04-26 Completed [facility] y of Vaccine Quad IM 3+ 00:00:00 [facility] TDAP 2019-04-26 Completed [facility] of 00:00:00 [facility] Influenza Virus 2019-04-26 Completed [facility] y of Vaccine Quad .5 mL 00:00:00 [facility] IM 6+ MO Branch Pneumococcal 2019-04-26 Completed [facility] o f Polysaccharide, 00:00:00 [facility] PPSV23 (PNEUMOVAX) Branch Influenza Virus 2019-04-26 Completed [facility] y of Vaccine Quad IM 3+ 00:00:00 [facility] TDAP 2019-04-26 Completed [facility] of 00:00:00 [facility] Influenza Virus 2019-04-26 Completed [facility] y of Vaccine Quad .5 mL 00:00:00 [facility] 6+ MO Branch Pneumococcal 2019-04-26 Completed [facility] o f Polysaccharide, 00:00:00 [facility] PPSV23 (PNEUMOVAX) Branch Influenza Virus 2019-04-26 Completed [facility] y of Vaccine Quad IM 3+ 00:00:00 [facility] TDAP 2019-04-26 Completed [facility] of 00:00:00 [facility] Influenza Virus 2019-04-26 Completed [facility] y of Vaccine Quad .5 mL 00:00:00 [facility] 6+ MO Branch Pneumococcal 2019-04-26 Completed [facility] o f Polysaccharide, 00:00:00 [facility] PPSV23 (PNEUMOVAX) Branch Influenza Virus 2019-04-26 Completed [facility] y of Vaccine Quad IM 3+ 00:00:00 [facility] TDAP 2019-04-26 Completed [facility] of 00:00:00 [facility] Influenza Virus 2019-04-26 Completed [facility] y of Vaccine Quad .5 mL 00:00:00 [facility] 6+ MO Branch Pneumococcal 2019-04-26 Completed [facility] o f Polysaccharide, 00:00:00 [facility] PPSV23 (PNEUMOVAX) Branch Influenza Virus 2019-04-26 Completed [facility] y of Vaccine Quad IM 3+ 00:00:00 [facility] TDAP 2019-04-26 Completed [facility] of 00:00:00 [facility] Influenza Virus 2019-04-26 Completed [facility] y of Vaccine Quad .5 mL 00:00:00 [facility] 6+ MO Branch Pneumococcal 2019-04-26 Completed [facility] o f Polysaccharide, 00:00:00 [facility] PPSV23 (PNEUMOVAX) Branch Influenza Virus 2019-04-26 Completed [facility] y of Vaccine Quad IM 3+ 00:00:00 [facility] TDAP 2019-04-26 Completed [facility] of 00:00:00 [facility] Influenza Virus 2019-04-26 Completed [facility] y of Vaccine Quad .5 mL 00:00:00 [facility] 6+ MO Branch Pneumococcal 2019-04-26 Completed [facility] o f Polysaccharide, 00:00:00 [facility] PPSV23 (PNEUMOVAX) Branch Influenza Virus 2019-04-26 Completed [facility] y of Vaccine Quad IM 3+ 00:00:00 [facility] TDAP 2019-04-26 Completed [facility] of 00:00:00 [facility] Influenza Virus 2019-04-26 Completed [facility] y of Vaccine Quad .5 mL 00:00:00 [facility] 6+ MO Branch Pneumococcal 2019-04-26 Completed [facility] o f Polysaccharide, 00:00:00 [facility] PPSV23 (PNEUMOVAX) Branch Influenza Virus 2019-04-26 Completed [facility] y of Vaccine Quad IM 3+ 00:00:00 [facility] TDAP 2019-04-26 Completed [facility] of 00:00:00 [facility] Influenza Virus 2019-04-26 Completed [facility] y of Vaccine Quad .5 mL 00:00:00 [facility] IM 6+ MO Branch Pneumococcal 2019-04-26 Completed [facility] o f Polysaccharide, 00:00:00 [facility] PPSV23 (PNEUMOVAX) Branch Influenza Virus 2019-04-26 Completed [facility] y of Vaccine Quad IM 3+ 00:00:00 [facility] TDAP 2019-04-26 Completed [facility] of 00:00:00 [facility] Influenza Virus 2019-04-26 Completed [facility] y of Vaccine Quad .5 mL 00:00:00 [facility] 6+ MO Branch Pneumococcal 2019-04-26 Completed [facility] o f Polysaccharide, 00:00:00 [facility] PPSV23 (PNEUMOVAX) Branch Influenza Virus 2019-04-26 Completed [facility] y of Vaccine Quad IM 3+ 00:00:00 [facility] TDAP 2019-04-26 Completed [facility] of 00:00:00 [facility] Influenza Virus 2019-04-26 Completed [facility] y of Vaccine Quad .5 mL 00:00:00 [facility] IM 6+ MO Branch Pneumococcal 2019-04-26 Completed [facility] o f Polysaccharide, 00:00:00 [facility] PPSV23 (PNEUMOVAX) Branch Influenza Virus 2019-04-26 Completed [facility] y of Vaccine Quad IM 3+ 00:00:00 [facility] TDAP 2019-04-26 Completed [facility] of 00:00:00 [facility] Influenza Virus 2019-04-26 Completed [facility] y of Vaccine Quad .5 mL 00:00:00 [facility] IM 6+ MO Branch Pneumococcal 2019-04-26 Completed [facility] o f Polysaccharide, 00:00:00 [facility] PPSV23 (PNEUMOVAX) Branch Influenza Virus 2019-04-26 Completed [facility] y of Vaccine Quad IM 3+ 00:00:00 [facility] Influenza Virus 2019-04-19 Completed [facility] y of Vaccine 00:00:00 [facility] Influenza Virus 2019-04-19 Completed [facility] y of Vaccine 00:00:00 [facility] Influenza Virus 2019-04-19 Completed [facility] y of Vaccine 00:00:00 [facility] Influenza Virus 2019-04-19 Completed [facility] y of Vaccine 00:00:00 [facility] Influenza Virus 2019-04-19 Completed [facility] y of Vaccine 00:00:00 [facility] Influenza Virus 2019-04-19 Completed [facility] y of Vaccine 00:00:00 [facility] Influenza Virus 2019-04-19 Completed [facility] y of Vaccine 00:00:00 [facility] Influenza Virus 2019-04-19 Completed [facility] y of Vaccine 00:00:00 [facility] Influenza Virus 2019-04-19 Completed [facility] y of Vaccine 00:00:00 [facility] Influenza Virus 2019-04-19 Completed [facility] y of Vaccine 00:00:00 [facility] Influenza Virus 2019-04-19 Completed [facility] y of Vaccine 00:00:00 [facility] Influenza Virus 2019-04-19 Completed [facility] y of Vaccine 00:00:00 [facility] Influenza Virus 2019-04-19 Completed [facility] y of Vaccine 00:00:00 [facility] Influenza Virus 2019-04-19 Completed [facility] y of Vaccine 00:00:00 [facility] Influenza Virus 2019-04-19 Completed [facility] y of Vaccine 00:00:00 [facility] Influenza Virus 2019-04-19 Completed [facility] y of Vaccine 00:00:00 [facility] Influenza Virus 2019-04-19 Completed [facility] y of Vaccine 00:00:00 [facility] Influenza Virus 2019-04-19 Completed [facility] y of Vaccine 00:00:00 [facility] Influenza Virus 2019-04-19 Completed [facility] y of Vaccine 00:00:00 [facility] Influenza Virus 2019-04-19 Completed [facility] y of Vaccine 00:00:00 [facility] Influenza Virus 2019-04-19 Completed [facility] y of Vaccine 00:00:00 [facility] Influenza Virus 2019-04-19 Completed [facility] y of Vaccine 00:00:00 [facility] Influenza Virus 2019-04-19 Completed [facility] y of Vaccine 00:00:00 [facility] Influenza Virus 2019-04-19 Completed [facility] y of Vaccine 00:00:00 [facility] Influenza Virus 2019-04-19 Completed [facility] y of Vaccine 00:00:00 [facility] Influenza Virus 2019-04-19 Completed [facility] y of Vaccine 00:00:00 [facility] Influenza Virus 2019-04-19 Completed [facility] y of Vaccine 00:00:00 [facility] Influenza Virus 2019-04-19 Completed [facility] y of Vaccine 00:00:00 [facility] Influenza Virus 2019-04-19 Completed [facility] y of Vaccine 00:00:00 [facility] Influenza Virus 2019-04-19 Completed [facility] y of Vaccine 00:00:00 [facility] Influenza Virus 2019-04-19 Completed [facility] y of Vaccine 00:00:00 [facility] Influenza Virus 2019-04-19 Completed [facility] y of Vaccine 00:00:00 [facility] Influenza Virus 2019-04-19 Completed [facility] y of Vaccine 00:00:00 [facility] Influenza Virus 2018-04-12 Completed [facility] y of Vaccine Quad .5 mL 00:00:00 [facility] 6+ MO Branch Influenza Virus 2018-04-12 Completed [facility] y of Vaccine Quad IM 3+ 00:00:00 [facility] Influenza Virus 2018-04-12 Completed [facility] y of Vaccine Quad .5 mL 00:00:00 [facility] 6+ MO Branch Influenza Virus 2018-04-12 Completed [facility] y of Vaccine Quad IM 3+ 00:00:00 [facility] Influenza Virus 2018-04-12 Completed Universit y of Vaccine Quad .5 mL 00:00:00 [facility] Branch Influenza Virus 2018-04-12 Completed [facility]it y of Vaccine [facility] IM 3+ 00:00:00 [facility] Influenza Virus 2018-04-12 Completed Universit y of Vaccine Quad .5 mL 00:00:00 [facility] Influenza Virus 2018-04-12 Completed Universit y of Vaccine Quad IM 3+ 00:00:00 [facility] Influenza Virus 2018-04-12 Completed Universit y of Vaccine Quad .5 mL 00:00:00 [facility] Influenza Virus 2018-04-12 Completed Universit y of Vaccine Quad IM 3+ 00:00:00 [facility] Influenza Virus 2018-04-12 Completed Universit y of Vaccine Quad .5 mL 00:00:00 [facility] Influenza Virus 2018-04-12 Completed Universit y of Vaccine Quad IM 3+ 00:00:00 [facility] Influenza Virus 2018-04-12 Completed Universit y of Vaccine Quad .5 mL 00:00:00 [facility] Influenza Virus 2018-04-12 Completed Universit y of Vaccine Quad IM 3+ 00:00:00 [facility] Influenza Virus 2018-04-12 Completed Universit y of Vaccine Quad .5 mL 00:00:00 [facility] Influenza Virus 2018-04-12 Completed Universit y of Vaccine Quad IM 3+ 00:00:00 [facility] Influenza Virus 2018-04-12 Completed Universit y of Vaccine Quad .5 mL 00:00:00 [facility] Influenza Virus 2018-04-12 Completed Universit y of Vaccine Quad IM 3+ 00:00:00 [facility] Influenza Virus 2018-04-12 Completed Universit y of Vaccine Quad .5 mL 00:00:00 [facility] Influenza Virus 2018-04-12 Completed Universit y of Vaccine Quad IM 3+ 00:00:00 [facility] Influenza Virus 2018-04-12 Completed Universit y of Vaccine Quad .5 mL 00:00:00 [facility] Influenza Virus 2018-04-12 Completed Universit y of Vaccine Quad IM 3+ 00:00:00 [facility] Influenza Virus 2018-04-12 Completed Universit y of Vaccine Quad .5 mL 00:00:00 [facility] Influenza Virus 2018-04-12 Completed Universit y of Vaccine Quad IM 3+ 00:00:00 [facility] Influenza Virus 2018-04-12 Completed Universit y of Vaccine Quad .5 mL 00:00:00 [facility] Influenza Virus 2018-04-12 Completed Universit y of Vaccine Quad IM 3+ 00:00:00 [facility] Influenza Virus 2018-04-12 Completed Universit [facility] of Vaccine Quad .5 mL 00:00:00 [facility] Influenza Virus 2018-04-12 Completed Universit y of Vaccine Quad IM 3+ 00:00:00 [facility] Influenza Virus 2018-04-12 Completed [facility]it [facility] of Vaccine Quad .5 mL 00:00:00 [facility] Influenza Virus 2018-04-12 Completed [facility]it [facility] of Vaccine Quad IM 3+ 00:00:00 [facility] Influenza Virus 2018-04-12 Completed [facility]it [facility] of Vaccine Quad .5 mL 00:00:00 [facility] Influenza Virus 2018-04-12 Completed Universit y of Vaccine Quad IM 3+ 00:00:00 [facility] Influenza Virus 2018-04-12 Completed Universit y of Vaccine Quad .5 mL 00:00:00 [facility] Influenza Virus 2018-04-12 Completed Universit y of Vaccine Quad IM 3+ 00:00:00 [facility] Influenza Virus 2018-04-12 Completed Universit y of Vaccine Quad .5 mL 00:00:00 [facility] Influenza Virus 2018-04-12 Completed Universit y of Vaccine Quad IM 3+ 00:00:00 [facility] Influenza Virus 2018-04-12 Completed Universit y of Vaccine Quad .5 mL 00:00:00 [facility] Influenza Virus 2018-04-12 Completed Universit y of Vaccine Quad IM 3+ 00:00:00 [facility] Influenza Virus 2018-04-12 Completed Universit y of Vaccine Quad .5 mL 00:00:00 [facility] Influenza Virus 2018-04-12 Completed Universit y of Vaccine Quad IM 3+ 00:00:00 [facility] Influenza Virus 2018-04-12 Completed Universit [facility] of Vaccine Quad .5 mL 00:00:00 [facility] Influenza Virus 2018-04-12 Completed Universit y of Vaccine Quad IM 3+ 00:00:00 [facility] Influenza Virus 2018-04-12 Completed [facility]it y of Vaccine Quad .5 mL 00:00:00 [facility] Influenza Virus 2018-04-12 Completed Universit y of Vaccine Quad IM 3+ 00:00:00 [facility] Influenza Virus 2018-04-12 Completed Universit y of Vaccine Quad .5 mL 00:00:00 [facility] Influenza Virus 2018-04-12 Completed [facility]it y of Vaccine Quad IM 3+ 00:00:00 [facility] Influenza Virus 2018-04-12 Completed [facility]it [facility] of Vaccine Quad .5 mL 00:00:00 [facility] Influenza Virus 2018-04-12 Completed Universit y of Vaccine Quad IM 3+ 00:00:00 [facility] Influenza Virus 2018-04-12 Completed Universit y of Vaccine Quad .5 mL 00:00:00 [facility] Influenza Virus 2018-04-12 Completed Universit y of Vaccine Quad IM 3+ 00:00:00 [facility] Influenza Virus 2018-04-12 Completed Universit y of Vaccine Quad .5 mL 00:00:00 [facility] Influenza Virus 2018-04-12 Completed Universit y of Vaccine Quad IM 3+ 00:00:00 [facility] Influenza Virus 2018-04-12 Completed Universit y of Vaccine Quad .5 mL 00:00:00 [facility] Influenza Virus 2018-04-12 Completed Universit y of Vaccine Quad IM 3+ 00:00:00 [facility] Influenza Virus 2018-04-12 Completed [facility]it y of Vaccine Quad .5 mL 00:00:00 [facility] Influenza Virus 2018-04-12 Completed Universit y of Vaccine Quad IM 3+ 00:00:00 [facility] Branch Influenza Virus 2018-04-12 Completed Universit y of Vaccine Quad .5 mL 00:00:00 [facility] Influenza Virus 2018-04-12 Completed Universit y of Vaccine Quad IM 3+ 00:00:00 [facility] Branch Influenza Virus 2018-04-12 Completed [facility]it y of Vaccine Quad .5 mL 00:00:00 [facility] Influenza Virus 2018-04-12 Completed Universit y of Vaccine Quad IM 3+ 00:00:00 [facility] Branch Influenza Virus 2018-04-12 Completed [facility]it y of Vaccine Quad .5 mL 00:00:00 [facility] Influenza Virus 2018-04-12 Completed Universit y of Vaccine Quad IM 3+ 00:00:00 [facility] Branch Influenza Virus 2018-04-12 Completed [facility]it y of Vaccine Quad .5 mL 00:00:00 [facility] Influenza Virus 2018-04-12 Completed [facility]it y of Vaccine Quad IM 3+ 00:00:00 [facility] Influenza Virus 2018-04-12 Completed [facility]it y of Vaccine Quad .5 mL 00:00:00 [facility] Influenza Virus 2018-04-12 Completed Universit y of Vaccine Quad IM 3+ 00:00:00 [facility] Vital Signs Vital Name Observation Time Observation Value Comments Source Systolic blood 2022-04-20 13:28:00 161 mm[Hg] [facility] pressure [facility] Diastolic blood 2022-04-20 13:28:00 92 mm[Hg] [facility] pressure [facility] Heart rate 2022-04-20 13:27:00 67 /min [facility] Body weight 2022-04-20 13:27:00 152.998 kg [facility] BMI 2022-04-20 13:27:00 41.06 kg/m2 [facility] Oxygen saturation 2022-04-20 13:27:00 97 /min [facility] in Arterial blood Medical Br anch by Pulse oximetry Procedures Procedure Date / Time Performed Performing Clinician Sour e EXTERNAL PROVIDER 2022-06-10 06:01:00 Doctor Unassigned, [facility] POCT HEMOGLOBIN A1C 2022-04-20 13:28:00 [facility] DIABETES TESTING 2022-04-20 05:01:00 Doctor Unassigned, No [facility] REPOR[facility] Name Medical [place] EXTERNAL PROVIDER 2021-12-29 05:01:00 Doctor Unassigned, No [facility] Name [facility] Plan of Care Planned Activity Planned Date Details Comments Source Future Scheduled 2022-06-05 COVID-19 VACCINE (#1) [facility] Hospital Test 06:33:18 [code = COVID-19 VACCINE (#1)] Future Scheduled 2022-06-05 COLONOSCOPY SCREENING [facility] Test 06:33:18 [code = COLONOSCOPY SCREENING] Future Scheduled 2022-06-05 SHINGLES VACCINES (1 Met [facility] Test 06:33:18 of 2) [code = SHINGLES VACCINES (1 of 2)] Future Scheduled 2022-06-05 INFLUENZA VACCINE [facility] Test 06:33:18 [code = INFLUENZA VACCINE] Encounters Start End Encounter Admission Attending Care Care Encounter Source Date/Time Date/Time Type Type Clinicians Facility Department ID 2021-04-20 Outpatient R NOEMÍ [facility] [id number] Univers 18:32:59 MIRNA Tripathi [facility] 2021-04-20 Inpatient U ROBERTO [facility] [id number] Univers 11:47:37 LUAN [facility] 2022-07-18 2022-07-18 Refill Kota [facility] 1.2.840.114 [id number] Univers 00:00:00 00:00:00 Finalta [facility] 350.1.13.10 it y of [place] 4.2.7.2.686 Cory as BRYAN?BLEA [phone] [address] MEDICAL OFFICE BUILDING 2022-07-18 2022-07-18 Patient Kota [facility] 1.2.840.114 [id number] Univers 00:00:00 00:00:00 Secure Msg [place] [facility] 350.1.13.10 ity of [place] [facility] 4.2.7.2.686 Cory as BRYAN?BLEA [phone] [address] MEDICAL OFFICE BUILDING 2022-07-12 2022-07-12 [facility] 1.2.840.114 [id number] Univers 00:00:00 00:00:00 Secure Msg Emil[place] MULTISPEC 350.1.13.10 ity [place] [phone] [facility] AND MES[facility] [address] [place] [facility] 2022-06-10 2022-06-10 Orders Doctor LETHA 1.2.840.114 [id number] Univers 00:00:00 00:00:00 Only Unassigned, CORKY 350.1.13.10 ity of [place] [facility] 4.2.7.2.686 Cory as [phone] [place] [address] Branch 2022-06-08 2022-06-08 Refill Escudero, [facility] 1.2.840.114 [id number] Univers 00:00:00 00:00:00 [facility] Instant AV 350.1.13.10 it y of [place] 4.2.7.2.686 Cory as BRYAN?BLEA [phone] [address] MEDICAL OFFICE [facility] 2022-06-08 2022-06-08 Telephone [facility] 1.2.078.130 [id number] Univers 00:00:00 00:00:00 [facility] Instant AV 350.1.13.10 it y of [place] 4.2.7.2.686 Cory as BRYAN?BLEA [id number] [address] OFFICE [facility] 2022-06-08 2022-06-08 Refill Kota, [facility] 1.2.840.114 [id number] Univers 00:00:00 00:00:00 Ar[facility] Instant AV 350.1.13.10 it y of [place] 4.2.7.2.686 Cory as BRYAN?BLEA [phone] [address] OFFICE BUILDING 2022-05-30 2022-05-30 Refill Escudero, [facility] 1.2.840.114 [id number] Univers 00:00:00 00:00:00 [employer] 350.1.13.10 it y of [place] 4.2.7.2.686 Cory as BRYAN?BLEA [id number] [address] MEDICAL OFFICE BUILDING 2022-05-27 2022-05-27 [facility] 1.2.840.114 [id number] Univers 00:00:00 00:00:00 [facility] 350.1.13.10 it y of [place] 4.2.7.2.686 Cory as BRYAN?BLEA [phone] [address] OFFICE [facility] 2022-05-27 2022-05-27 Telephone [facility] 1.2.259.880 [id number] Univers 00:00:00 00:00:00 [facility] 350.1.13.10 it y of [place] 4.2.7.2.686 Cory as BRYAN?BLEA [id number] [address] OFFICE [facility] 2022-05-25 2022-05-25 Telephone [facility] 1.2.650.072 [id number] Univers 00:00:00 00:00:00 [facility] 350.1.13.10 it y of [place] 4.2.7.2.686 Cory as BRYAN?BLEA [id number] [address] OFFICE [facility] 2022-04-20 2022-04-20 [facility] [id number] Univers 08:30:00 09:14:23 [facility] ity [facility] 2022-04-20 2022-04-20 Office [facility] 1.2.840.114 [id number] Univers 08:30:00 09:14:23 Visit [facility] 350.1.13.10 it y of [place] 4.2.7.2.686 Cory as BRYAN?BLEA [id number] [address] OFFICE [facility] 2022-04-20 2022-04-20 Orders Doctor LETHA 1.2.840.114 [id number] Univers 00:00:00 00:00:00 Only Unassigned, CORKY 350.1.13.10 ity of [place] [facility] 4.2.7.2.686 Cory as [phone] [address] 2022-04-17 2022-04-17 [facility] 1.2.840.114 [id number] Univers 00:00:00 00:00:00 [facility] MULTISPEC 350.1.13.10 [place] [id number] [address] DIABETES CLINIC 2022-03-24 2022-03-24 Refill Kota NDSINA 1.2.840.114 [id number] Univers 00:00:00 00:00:00 [facility] HEALTH 350.1.13.10 it y of [place] 4.2.7.2.686 Cory as BRYAN?BLEA [id number] [address] MEDICAL OFFICE [facility] 2022-03-20 2022-03-20 Refill Kota NDSINA 1.2.840.114 [id number] Univers 00:00:00 00:00:00 [facility] HEALTH 350.1.13.10 it y of [place] 4.2.7.2.686 Cory as BRYAN?BLEA [id number] [address] OFFICE [facility] 2022-03-14 2022-03-14 Refill Kota, [facility] 1.2.840.114 [id number] Univers 00:00:00 00:00:00 [facility] MULTISPEC 350.1.13.10 [place] [id number] [address] DIABETES CLINIC 2022-03-14 2022-03-14 Patient Kota NDSINA 1.2.840.114 [id number] Univers 00:00:00 00:00:00 Secure [facility] MULTISPEC 350.1.13.10 [place] [id number] [address] DIABETES CLINIC 2022-03-01 2022-03-01 Patient Kota NDSINA 1.2.840.114 [id number] Univers 00:00:00 00:00:00 Secure [facility] HEALTH 350.1.13.10 ity of [place] 4.2.7.2.686 Cory as BRYAN?BLEA [id number] [address] OFFICE [facility] 2022-01-13 2022-01-13 Patient Escudero, [facility] 1.2.840.114 [id number] Univers 00:00:00 00:00:00 Secure Msg [place] MULTISPEC 350.1.13.10 it[place] [id number] [address] DIABETES CLINIC 2022-01-13 2022-01-13 Refill Kota, [facility] 1.2.840.114 [id number] Univers 00:00:00 00:00:00 [facility] HEALTH 350.1.13.10 it y of [place] 4.2.7.2.686 Cory as BRYAN?BLEA [phone] [address] MEDICAL OFFICE BUILDING 2021-12-29 2021-12-29 Orders Doctor LETHA 1.2.840.114 [id number] Univers 00:00:00 00:00:00 Only Unassigned, COKRY 350.1.13.10 ity of [place] [facility] 4.2.7.2.686 Cory as [phone] [place] [address] Branch 2021-12-23 2021-12-23 Patient Escudero, [facility] 1.2.840.114 [id number] Univers 00:00:00 00:00:00 Secure Msg [facility] HEALTH 350.1.13.10 ity of [place] 4.2.7.2.686 Cory as BRYAN?BLEA [id number] [address] MEDICAL OFFICE BUILDING 2021-12-15 2021-12-15 Patient Escudero, [facility] 1.2.840.114 [id number] Univers 00:00:00 00:00:00 Secure Msg [place] MULTISPEC 350.1.13.10 it[place] [id number] [address] DIABETES CLINIC 2021-12-13 2021-12-13 Refill Kota, [facility] 1.2.840.114 [id number] Univers 00:00:00 00:00:00 [place] HEALTH 350.1.13.10 it y of [place] 4.2.7.2.686 Cory as BRYAN?BLEA [id number] [address] MEDICAL OFFICE BUILDING 2021-12-09 2021-12-09 Office Escudero, [facility] 1.2.840.114 [id number] Univers 15:00:00 15:24:18 Visit [facility] 350.1.13.10 it y of [place] 4.2.7.2.686 Cory as BRYAN?BLEA [phone] [address] MEDICAL OFFICE [facility] 2021-12-09 2021-12-09 Outpatient R ESCUDERO, [facility] [id number] Univers 15:00:00 15:24:18 [facility] ity [facility] 2021-12-09 2021-12-09 Outpatient R ESCUDEOR, [facility] [id number] Univers 15:00:00 15:00:00 [facility] 2021-12-08 2021-12-08 Telephone Escudero, [facility] 1.2.774.672 [id number] Univers 00:00:00 00:00:00 [facility] 350.1.13.10 it y of [place] 4.2.7.2.686 Cory as BRYAN?BLEA [id number] [address] MEDICAL OFFICE [facility] 2021-11-04 2021-11-04 Patient Escudero, [facility] 1.2.840.114 [id number] Univers 00:00:00 00:00:00 Secure [facility] HEALTH 350.1.13.10 ity of [place] 4.2.7.2.686 Cory as BRYAN?BLEA [id number] [address] MEDICAL OFFICE [facility] 2021-11-04 2021-11-04 Telephone Escudero, [facility] 1.2.449.988 [id number] Univers 00:00:00 00:00:00 [facility] HEALTH 350.1.13.10 it y of [place] 4.2.7.2.686 Cory as BRYAN?BLEA [id number] [address] MEDICAL OFFICE BUILDING 2021-10-20 2021-10-20 Patient Escudero, [facility] 1.2.840.114 [id number] Univers 00:00:00 00:00:00 [facility] 350.1.13.10 [place] [id number] [address] DIABETES CLINIC 2021-10-19 2021-10-19 Refill Kota NDSINA 1.2.840.114 [id number] Univers 00:00:00 00:00:00 [facility] Instant AV 350.1.13.10 it y of [place] 4.2.7.2.686 Cory as BRYAN?BLEA [id number] [address] MEDICAL OFFICE BUILDING 2021-10-13 2021-10-13 Patient Kota, [facility] 1.2.840.114 [id number] Univers 00:00:00 00:00:00 Secure Msg [facility] 350.1.13.10 it[place] of [place]2.[place].2.[place] [id number] [address] DIABETES CLINIC 2021-10-05 2021-10-05 Patient Kota NDSINA 1.2.840.114 [id number] Univers 00:00:00 00:00:00 Secure Msg [facility] MULTISPEC 350.1.13.10 it[place] of [place]2.7.2.[place] [id number] [address] DIABETES CLINIC 2021-09-20 2021-09-20 Refill Kota NDSINA 1.2.840.114 [id number] Univers 00:00:00 00:00:00 [facility] 350.1.13.10 i ty of [place] 4.2.7.2.686 [place] [id number] [place] [address] Branch [facility] 2021-09-16 2021-09-16 Patient Kota, [facility] 1.2.840.114 [id number] Univers 00:00:00 00:00:00 Secure Msg [facility] MULTISPEC 350.1.13.10 it[place]2.7.2.[place] [id number] [address] DIABETES CLINIC 2021-09-15 2021-09-15 Office Kota, NDS[facility] 1.2.840.114 [id number] Univers 16:00:00 16:48:56 Visit [facility] 350.1.13.10 it y of [place] 4.2.7.2.686 Cory as BRYAN?BLEA [phone] [facility] [address] MEDICAL OFFICE BUILDING 2021-09-15 2021-09-15 Outpatient R KOTA [facility] [id number] Univers 16:00:00 16:48:56 [facility] ity [facility] 2021-09-15 2021-09-15 Outpatient R KOTA [facility] [id number] Univers 16:00:00 16:00:00 [facility] 2021-09-03 2021-09-03 Refill Kota [facility] 1.2.840.114 [id number] Univers 00:00:00 00:00:00 [facility] 350.1.13.10 i ty of [place] 4.2.7.2.686 [place] [facility] [id number] [facility] 220 [facility] 2021-08-01 2021-08-01 [facility]ill [facility] 1.2.840.114 [id number] Univers 00:00:00 00:00:00 [facility] MULTISPEC 350.1.13.10 ity of [facility] 4.2.7.2.686 [place] [id number] [facility] AND YANEZ [address] DI[facility]ES CLINIC 2021-06-04 2021-06-04 Orders Doctor LETHA 1.2.840.114 [id number] Univers 00:00:00 00:00:00 Only Unassigned, CORKY 350.1.13.10 ity of [place] [facility] 4.2.7.2.686 Cory as [phone] [facility] 009 Branch 2021-05-22 2021-05-22 Telephone Adilson [facility] 1.2.023.651 [id number] Univers 00:00:00 00:00:00 Sol HEALTH 350.1.13.10 it y of [place] 4.2.7.2.686 Cory as BRYAN?BLEA [phone] [facility] [address] MEDICAL OFFICE BUILDING 2021-05-21 2021-05-21 Urgent Sol De Anda [facility] 1.2.840.114 [id number] Univers 17:04:41 17:58:06 Care Unknown, [facility] HEALTH 350.1.13.10 ity of [place] [facility] 4.2.7.2.686 Cory as BRYAN?BLEA [phone] Mi marlene AZEVEDO [address] MEDICAL OFFICE [facility] 2021-05-21 2021-05-21 Outpatient R SIDRA, [facility] [id number] Univers 17:00:00 17:58:06 ATTENDING ity [facility] 2021-05-21 2021-05-21 Outpatient R ADILSON [facility] [id number] Univers 17:00:00 17:58:06 SOL [facility] 2021-05-19 2021-05-19 Telephone [facility] 1.2.072.991 [id number] Univers 00:00:00 00:00:00 [facility] 350.1.13.10 it y of [place] 4.2.7.2.686 Cory as BRYAN?BLEA [phone] [facility] AZ[facility] 220 [facility] OFFICE [facility] 2021-05-17 2021-05-17 [facility]ill [facility] 1.2.840.114 [id number] Univers 00:00:00 00:00:00 [facility] 350.1.13.10 i ty of [facility] 4.2.7.2.686 [place] [id number] [facility] CASTILLO [address] [place] [address] 2021-05-12 2021-05-12 Outpatient R KOTA [facility] [id number] Univers 15:30:00 15:30:00 [facility] 2021-05-12 2021-05-12 Outpatient R KOTA [facility] [id number] Univers 15:30:00 15:07:38 [facility] 2021-05-12 2021-05-12 Office [facility] 1.2.840.114 [id number] Univers 13:01:02 15:07:38 Visit [facility] Instant AV 350.1.13.10 it y of [place] [facility] 4.2.7.2.686 Cory as BRYAN?BLEA [phone] [facility] [address] OFFICE [facility] 2021-05-12 2021-05-12 Orders Doctor LETHA 1.2.840.114 [id number] Univers 00:00:00 00:00:00 Only Unassigned, CORKY 350.1.13.10 ity of [place] [facility] 4.2.7.2.686 Cory as [phone] [place] [address] Branch 2021-05-04 2021-05-04 Patient Kota NDS[facility] 1.2.840.114 [id number] Univers 00:00:00 00:00:00 Secure Msg [place] MULTISPEC 350.1.13.10 it[place].2.[place] [id number] [address] DIABETES CLINIC 2021-04-21 2021-04-21 Patient Valentin NDSINA 1.2.840.114 [id number] Univers 00:00:00 00:00:00 Secure Msg Brandie MULTISPEC 350.1.13.10 it[place] 4[place]2.7.2.[place] [id number] [address] DIABETES CLINIC 2021-04-21 2021-04-21 Telephone Kota NDSINA 1.2.639.962 [id number] Univers 00:00:00 00:00:00 [facility] 350.1.13.10 it y of [place] 4.2.7.2.686 Cory as BRYAN?BLEA [phone] [facility] [address] [facility] 2021-04-20 2021-04-20 Patient Kota NDSINA 1.2.840.114 [id number] [facility] 00:00:00 00:00:00 Secure Msg Wentong [place] 350.1.13.10 [facility]y [facility] 4[place].2.[place] [phone] [facility] [address] BU[facility]ING 2021-04-12 2021-04-12 Refill Kota NDSINA 1.2.840.114 [id number] [facility] 00:00:00 00:00:00 Wentong [place] 350.1.13.10 i [place] [phone] Me [address] 2021-04-10 2021-04-10 Telephone Escudero, [facility] [id number] [facility] 00:00:00 00:00:00 Wentong [place] 350.1.13.10 [place] [phone] [address] 2021-03-31 2021-03-31 Patient Escudero, [facility] 1.2.840.114 [id number] [facility] 00:00:00 00:00:00 Secure Msg Wentong MULTISPEC 350.1.13.10 [place] [phone] [address] [facility] 2021-03-31 2021-03-31 Patient [place]ud[place], [facility] [id number] Univers 00:00:00 00:00:00 Secure Msg [place] MULTISPEC [id number] [id number] [phone] [address] [facility] 2021-03-30 2021-03-30 Patient Escudero, [facility] [id number] Univers 00:00:00 00:00:00 Secure Msg [facility] [id number] ity of [place] [id number] Cory as Bryan?Blea [phone] [address] Office [facility] 2021-03-24 2021-03-24 Telephone Escudero, [facility] [id number] Univers 00:00:00 00:00:00 [facility] [id number] it y of [place] [id number] Cory as Bryan?Blea [phone] [address] Office [facility] 2021-03-16 2021-03-16 Telephone Escudero, [facility] [id number] Univers 00:00:00 00:00:00 [place]ong [place] [id number] [id number] [phone] Mi dical [facility] 2021-03-13 2021-03-13 Patient Escudero, [facility] [id number] Univers 00:00:00 00:00:00 Secure Msg Neelima Dyson [id number] [id number] [phone] [address] 2021-03-13 2021-03-13 Patient Escudero, [facility] [id number] Univers 00:00:00 00:00:00 Secure Msg Neelima [place] [id number] [id number] [phone] [address] 2021-03-12 2021-03-12 Orders Doctor LETHA [id number] Univers 00:00:00 00:00:00 Only Unassigned, CORKY [id number] ity of [place] [facility] [id number] Cory as [phone] [address] 2021-03-11 2021-03-11 Telephone [facility] [id number] Univers 00:00:00 00:00:00 Neelima Dyson [id number] [id number] [phone] [address] 2021-02-18 2021-02-18 Hospital [facility] [id number] Univers 09:14:00 13:31:00 Encounter Mirna tripathi [id number] [id number] [phone] [facility] [address] [place] 2021-02-18 2021-02-18 Surgery [facility] [id number] Univers 11:43:00 12:20:00 Mirna tripathi [id number] [id number] [phone] [facility] [address] 2021-02-17 2021-02-17 Laboratory Only, Adc Test [facility] 1.2.840. [id number] Univers 11:12:17 11:27:17 Only Mirna Fernandez 350.1.1 3.10 [id number] [phone] [facility] [address] 2021-02-17 2021-02-17 Outpatient R NOEMÍ [facility] [id number] Univers 11:15:00 11:15:00 MIRNA Tripathi o f [facility] 2021-02-01 2021-02-01 Orders Doctor LETHA [id number] Univers 00:00:00 00:00:00 Only Unassigned, CORKY [id number] ity of [place] [facility] [id number] Cory as [phone] [facility] [address] 2021-01-14 2021-01-14 Outpatient R KOTA [facility] [id number] Univers 16:00:00 16:00:00 NEELIMA [facility] 2020-12-28 2020-12-28 Outpatient R FERNANDO, [facility] [id number] Univers 11:40:00 11:40:00 DAX [facility] 2020-12-26 2020-12-26 Outpatient [facility] [id number] Sharri 00:00:00 00:00:00 Seybol d 2020-12-24 2020-12-24 Outpatient R KOTA [facility] [id number] Univers 11:45:00 11:45:00 NEELIMA [facility] 2020-12-24 2020-12-24 Outpatient [facility] [id number] Sharri 00:00:00 00:00:00 Seybol d 2020-09-06 2020-09-06 Outpatient [facility] [id number] Univers 13:30:00 13:30:00 ity [facility] 2020-08-16 2020-08-16 Outpatient [facility] [id number] Univers 13:40:00 13:40:00 [facility] 2020-06-17 2020-06-17 Outpatient R KOTA [facility] [id number] Univers 09:00:00 09:00:00 [facility] 2020-04-03 2020-04-03 Refill [facility] [id number] 00:00:00 00:00:00 Neelima [place] [id number] [place] [id number] Professio [phone] nal 220 [facility] 2020-02-06 2020-02-06 Office [facility] [id number] 13:55:45 14:59:00 Visit Neelima [place] [id number] [place] [id number] Professio [phone] nal 220 [facility] 2020-02-06 2020-02-06 Outpatient R KOTA [facility] [id number] Univers 14:00:00 14:00:00 [facility] 2019-12-25 2019-12-25 Outpatient R KOTA [facility] [id number] Univers 09:00:00 09:00:00 [facility] 2019-08-31 2019-08-31 Outpatient R TEJAS [facility] [id number] Univers 15:30:00 15:30:00 YANI [facility] 2019-08-21 2019-08-21 [facility] [id number] Univers 08:30:00 08:30:00 [facility] Results Test Description Test Time Test Comments Results Result Comments Source POCT HEMOGLOBIN A1C TEST 2022-04-20 13:28:00 Test Item Value Reference Range Interpretation Comme nts POCT HBA1C (test code = 4548-4) 7.2 % 4-6 A Lab Interpretation (test code = 72368-8) Abnormal [facility] [id number] 13:28:00 Test Item Value Reference Range Interpretation Comments POCT HBA1C (test code = 4548-4) 7.2 % 4-6 A Lab Interpretation (test code = Abnormal 41249-0) [facility]
--- NOTE | 2022-07-25 15:44 | ER ---
Nurse's Notes [facility] Name: Adalid Chaves Jr Age: 52 yrs Sex: Male : 1970 Arrival Date: 07/25/2022 Time: 14:08 Bed 14 Private MD: Ross Dumont; Elliot Edwards Diagnosis: Cellulitis left foot Presentation: 07/25 14:21 Chief complaint: Patient states: L foot 2nd digit toe infection getting worse even ll1 though he is on 2 antibiotics. No longer has fever. Coronavirus screen: Vaccine status: Patient reports receiving the 2nd dose of the covid vaccine. Client denies travel out of the [place] in the last 14 days. At this time, the client does not indicate any symptoms associated with coronavirus-19. Ebola Screen: Patient denies travel to an Ebola-affected area in the 21 days before illness onset. Initial Sepsis Screen: Does the patient meet any 2 criteria? No. Patient's initial sepsis screen is negative. Does the patient have a suspected source of infection? Yes: Skin breakdown/wound Bone or joint infection. Risk Assessment: Do you want to hurt yourself or someone else? Patient reports no desire to harm self or others. Onset of symptoms was July 23, 2022. 14:21 Method Of Arrival: Ambulatory ll1 14:21 Acuity: YENNY 3 ll1 Triage Assessment: 16:30 General: Appears uncomfortable, obese, Behavior is cooperative, appropriate for age, bp anxious. Pain: Complains of pain in left foot. EENT: No deficits noted. Neuro: No deficits noted. Cardiovascular: No deficits noted. Respiratory: No deficits noted. GI: No signs and/or symptoms were reported involving the gastrointestinal system. : No signs and/or symptoms were reported regarding the genitourinary system. Derm: No deficits noted. Musculoskeletal: Circulation, motion, and sensation intact. Injury Description: NONHEALING WOUND LEFT 2ND TOE. Historical: - Allergies: 14:23 bee venom protein (honey bee); ll1 - PMHx: 14:23 Hypertension; Low Iron; Diabetes - IDDM; ll1 - PSHx: 14:23 left knee; bunionectomy; ll1 - Immunization history:: Client reports receiving the 2nd dose of the Covid vaccine. - Social history:: Smoking status: Patient denies any tobacco usage or history of. Screenin:30 [facility] ED Fall Risk Assessment (Adult) History of falling in the last 3 months, bp including since admission No falls in past 3 months (0 pts). Abuse screen: Denies threats or abuse. Denies injuries from another. Nutritional screening: No deficits noted. Tuberculosis screening: No symptoms or risk factors identified. Assessment: 16:30 General: SEE TRIAGE NOTE. bp Vital Signs: 14:21 BP 120 / 65; Pulse 83; Resp 18; Temp 98.2; Pulse Ox 98% ; Weight 154.22 kg; Height 6 ll1 ft. 4 in. (193.04 cm); Pain 5/10; 16:45 BP 113 / 56; Pulse 74; Resp 16; Pulse Ox 96% ; bp 17:30 BP 101 / 46; Pulse 69; Resp 16; Pulse Ox 98% ; bp 19:46 BP 149 / 73; Pulse 84; Resp 17; Temp 98.1; Pulse Ox 97% on R/A; Pain 0/10; ke1 14:21 Body Mass Index 41.39 (154.22 kg, 193.04 cm) ll1 ED Course: 14:08 Patient arrived in ED. as 14:10 Ross Dumont is Private Physician. as 14:10 Elliot Edwards MD is Private Physician. as 14:23 Triage completed. ll1 15:21 Ethan Ferro MD is Attending Physician. kdr 15:32 Elaina Garza MD is Hospitalizing Provider. kdr 15:41 Ranjana Rubalcava, RN is Primary Nurse. kr3 15:43 Arm band placed on. iw 15:59 Foot Left 3 View In Process Unspecified. EDMS 16:00 Inserted saline lock: 20 gauge in right forearm, using aseptic technique. Blood zm collected. 16:01 Comprehensive Metabolic Panel Sent. zm 16:01 CBC with Diff Sent. zm 16:01 SARS RAPID Sent. zm 16:29 Primary Nurse role handed off by Ranjana Rubalcava, RN bp 16:29 Kavin Mon, DIANA is Primary Nurse. bp 16:30 Patient has correct armband on for positive identification. Bed in low position. Call bp light in reach. Side rails up X2. Adult w/ patient. 22:45 No provider procedures requiring assistance completed. Patient admitted, IV remains in ke1 place. Administered Medications: 16:01 Drug: LevaQUIN (levofloxacin) 750 mg Route: IVPB; Site: right forearm; kr3 18:27 Follow up: IV Status: Completed infusion; IV Intake: 200ml bp 18:15 Drug: vancoMYCIN 1.5 grams Route: IVPB; Rate: calculated rate; Site: right forearm; bp Medication: 22:45 VIS not applicable for this client. ke1 Intake: 18:27 IV: 200ml; Total: 200ml. bp Outcome: 15:43 Decision to Hospitalize by Provider. kdr 22:45 Admitted to Med/surg accompanied by tech. ke1 22:45 Condition: good 22:45 Instructed on the need for admit. 22:45 Patient left the ED. ke1 Signatures: Dispatcher [employer] EDMS Ethan Ferro MD MD kdr Martinez, Amelia as Williams, Irene, RN Kavin Grewal RN RN bp Lewis, Lynsay, RN RN ll1 Brie Beatty RN RN ke1 Martinez, Zaina zm Reid, Kelley, RN RN kr3
--- NOTE | 2022-07-25 15:44 | EDPHYS ---
Physician Documentation [facility] Name: Adalid Chaves Jr Age: 52 yrs Sex: Male : 1970 Arrival Date: 07/25/2022 Time: 14:08 Bed 14 Private MD: Ross Dumont; Elliot Edwards ED Physician Ethan Ferro HPI: 07/25 19:20 This 52 yrs old Male presents to ER via Ambulatory with complaints of toe kdr infection worsening. 19:20 Patient's had a chronic left second toe infection that he is to be getting worse. He kdr was seen elsewhere and started on antibiotics which included Bactrim and Augmentin. He states he been on Levaquin previously which seem to take care of the infection but the provider seen did not prescribe that. In any case he started to have more symptomatic symptoms and decided to get seen today. While he has not systemically ill, he does feel that the toe is getting worse. Onset: The symptoms/episode began/occurred gradually, at an unknown time. Severity of symptoms: At their worst the symptoms were mild in the emergency department the symptoms are unchanged. The patient has experienced similar episodes in the past, chronically. The patient has been recently seen at an urgent care, last week. Historical: - Allergies: 14:23 bee venom protein (honey bee); ll1 - PMHx: 14:23 Hypertension; Low Iron; Diabetes - IDDM; ll1 - PSHx: 14:23 left knee; bunionectomy; ll1 - Immunization history:: Client reports receiving the 2nd dose of the Covid vaccine. - Social history:: Smoking status: Patient denies any tobacco usage or history of. ROS: 19:20 Constitutional: Negative for fever, chills, and weight loss, Eyes: Negative for injury, kdr pain, redness, and discharge, Neck: Negative for injury, pain, and swelling, Cardiovascular: Negative for chest pain, palpitations, and edema, Respiratory: Negative for shortness of breath, cough, wheezing, and pleuritic chest pain, Abdomen/GI: Negative for abdominal pain, nausea, vomiting, diarrhea, and constipation, Back: Negative for injury and pain, : Negative for injury, bleeding, discharge, and swelling, Skin: Negative for injury, rash, and discoloration, Neuro: Negative for headache, weakness, numbness, tingling, and seizure activity. Psych: Negative for depression, anxiety, suicide ideation, homicidal ideation, and hallucinations, Allergy/Immunology: Negative for hives, rash, and allergies, Endocrine: Negative for neck swelling, polydipsia, polyuria, polyphagia, and marked weight changes, Hematologic/Lymphatic: Negative for swollen nodes, abnormal bleeding, and unusual bruising. 19:20 MS/extremity: Positive for erythema, paresthesias, swelling, tenderness, of the plantar aspect of left second toe, left second toe and Left second toenail. Exam: 19:20 Constitutional: This is a well developed, well nourished patient who is awake, alert, kdr and in no acute distress. Head/Face: Normocephalic, atraumatic. Eyes: Pupils equal round and reactive to light, extra-ocular motions intact. Lids and lashes normal. Conjunctiva and sclera are non-icteric and not injected. Cornea within normal limits. Periorbital areas with no swelling, redness, or edema. Neck: Trachea midline, no thyromegaly or masses palpated, and no cervical lymphadenopathy. Supple, full range of motion without nuchal rigidity, or vertebral point tenderness. No Meningismus. Chest/axilla: Normal chest wall appearance and motion. Nontender with no deformity. No lesions are appreciated. Cardiovascular: Regular rate and rhythm with a normal S1 and S2. No gallops, murmurs, or rubs. Normal PMI, no JVD. No pulse deficits. Respiratory: Lungs have equal breath sounds bilaterally, clear to auscultation and percussion. No rales, rhonchi or wheezes noted. No increased work of breathing, no retractions or nasal flaring. Abdomen/GI: Soft, non-tender, with normal bowel sounds. No distension or tympany. No guarding or rebound. No evidence of tenderness throughout. Back: No spinal tenderness. No costovertebral tenderness. Full range of motion. Skin: Warm, dry with normal turgor. Normal color with no rashes, no lesions, and no evidence of cellulitis. Neuro: Awake and alert, GCS 15, oriented to person, place, time, and situation. Cranial nerves II-XII grossly intact. Motor strength 5/5 in all extremities. Sensory grossly intact. Cerebellar exam normal. Normal gait. Psych: Awake, alert, with orientation to person, place and time. Behavior, mood, and affect are within normal limits. 19:20 Musculoskeletal/extremity: Extremities: grossly normal except: erythema, swelling. Vital Signs: 14:21 BP 120 / 65; Pulse 83; Resp 18; Temp 98.2; Pulse Ox 98% ; Weight 154.22 kg; Height 6 ll1 ft. 4 in. (193.04 cm); Pain 5/10; 16:45 BP 113 / 56; Pulse 74; Resp 16; Pulse Ox 96% ; bp 17:30 BP 101 / 46; Pulse 69; Resp 16; Pulse Ox 98% ; bp 19:46 BP 149 / 73; Pulse 84; Resp 17; Temp 98.1; Pulse Ox 97% on R/A; Pain 0/10; ke1 14:21 Body Mass Index 41.39 (154.22 kg, 193.04 cm) ll1 MDM: 15:43 Patient medically screened. kdr 15:47 ED course: Blood cultures were not obtained since the patient had been on Bactrim and kdr Augmentin for some time. Patient reports that prior to being started on the 2 antibiotics, he had been having fever and chills however that is resolved. Unfortunately he feels that his toe infection continues to worsen though he is somewhat less symptomatic at this time.. 19:20 Data reviewed: vital signs, nurses notes, lab test result(s), radiologic studies. kdr 07/25 15:43 Order name: SARS RAPID; Complete Time: 21:04 iw 07/25 15:44 Order name: CBC with Diff; Complete Time: 21:04 kdr 07/25 15:44 Order name: Comprehensive Metabolic Panel; Complete Time: 21:04 kdr 07/25 15:59 Order name: Foot Left 3 View; Complete Time: 21:04 EDMS Administered Medications: 16:01 Drug: LevaQUIN (levofloxacin) 750 mg Route: IVPB; Site: right forearm; kr3 18:27 Follow up: IV Status: Completed infusion; IV Intake: 200ml bp 18:15 Drug: vancoMYCIN 1.5 grams Route: IVPB; Rate: calculated rate; Site: right forearm; bp Disposition Summary: 07/25/22 15:43 Hospitalization Ordered Hospitalization Status: Inpatient Admission kdr Provider: Elaina Garza Condition: Fair kdr Problem: new kdr Symptoms: are unchanged kdr Bed/Room Type: Standard kdr Location: Telemetry/MedSurg (Inpatient)(07/25/22 21:49) cg Room Assignment: 219(07/25/22 22:01) cg Diagnosis - Cellulitis left foot kdr Forms: - Medication Reconciliation Form kdr - SBAR form kdr Signatures: Dispatcher [employer] EDMS Ethan Ferro MD MD kdr Georgi Bob, DIGITAL MARKETING CONSULTANT-C DIGITAL MARKETING CONSULTANT-Cla1 Jacy Almeida, RN RN cg Kavin Mon RN RN bp Jayant Ansari RN RN ll1 Ranjana Rubalcava RN RN kr3 Corrections: (The following items were deleted from the chart) 15:59 15:45 Foot Right 3 View+RAD.RAD.BRZ ordered. EDMS EDMS 21:08 15:43 Telemetry/MedSurg (Inpatient) kdr cg 21:08 15:43 kdr cg 21:49 21:08 [facility] ER HOLD cg cg 21:49 21:08 ERHOLD- cg cg 22:01 21:49 216 cg cg
[2022-07-25] MEDS ORDERED: Levofloxacin 750mg IV 750 MG/150 ML BAG IV ONE (15:54)
[2022-07-25 16:05] LABS: Hematocrit 35.8 % (39.6-49.0); Lymphocytes % 15.7 % (15.3-44.8); MCV 81.7 fL (80-100); MPV 8.1 fL (7.6-11.3); RBC Red Blood Cell Count 4.38 M/uL (4.33-5.43)
[2022-07-25 16:15] LABS: SARS-CoV-2 Antigen Rapid Res Negative (Negative)
[2022-07-25 16:23] LABS: Albumin 3.1 g/dL (3.4-5.0); Bilirubin Total 0.2 mg/dL (0.2-1.0)
--- NOTE | 2022-07-25 16:23 | RAD REPORT ---
EXAM DESCRIPTION: RAD - Foot Left 3 View - 07/25/2022 4:04 pm CLINICAL HISTORY: Diabetic foot infection right second toe COMPARISON: Foot Left 3 View dated 03/05/2022; Foot Left 3 View dated 01/28/2022 FINDINGS: Second toe soft tissue swelling is present without air or foreign body identifiable. Secon d toe is flexed at the PIP and DIP joints. Visualization of the second toe distal phalanx is not opti mal ; however, there does appear to be thinning or disruption of the cortex and overall lucency thoug h would favor osteomyelitis. Elsewhere no acute bone or joint finding identifiable. Degenerative changes are present in the midfoo t. IMPRESSION: Prominent second toe soft tissue swelling with findings suspicious for second toe distal phalanx osteomyelitis.
[2022-07-25] MEDS ORDERED: VANCOMYCIN 1 GM/VIAL ONE (17:10)
[2022-07-25] MEDS ORDERED: VANCOMYCIN 500 MG/VIAL ONE (17:10)
[2022-07-25] MEDS ORDERED: NA CHLORIDE 0.9% 250 ML ONE (17:10)
--- NOTE | 2022-07-25 22:11 | P.HP ---
Certification for Inpatient Patient admitted to: Inpatient With expected LOS: >2 Midnights Patient will require the following post-hospital care: None Practitioner: I am a practitioner with admitting privileges, knowledge of patient current condition, hospital course, and medical plan of care. Services: Services provided to patient in accordance with Admission requirements found in Title 42 Section 412.3 of the Code of Federal Regulations Patient History Date of Service: 07/25/22 Reason for admission: Osteomyelitis History of Present Illness: 52-year-old male with history of insulin-dependent diabetes, hypertension, hyperlipidemia presents to the emergency department with concern of infection to his left second toe. He reports he has been dealing with an infection in that toe over the last 2 and half months, following up with general surgery Dr. Edwards. He reports they began to develop fever the last couple of days, was seen in urgent care yesterday and prescribed clindamycin, amoxicillin which she just began taking. He continued to feel worse that reason presented to the emergency department for evaluation. His labs were significant for creatinine 1.51 GFR 55 glucose 140 x-ray of the left foot was performed which revealed suspected osteomyelitis, patient was given broad-spectrum antibiotics in the emergency department, ED prior wishes to admit for further evaluation and management. Allergies bee venom protein (honey bee) Allergy (Verified 05/08/19 10:12) Anaphylaxis Home Medications: Insulin Regular, Human [Humulin R U-500 Kwikpen] 60 units SQ TID 11/08/18 Lisinopril/Hydrochlorothiazide [Lisinopril-Hctz 20-12.5 mg Tab] 1 tab PO BID 11/08/18 Simvastatin 20 mg PO BEDTIME 11/08/18 Aspirin Chewable [Aspirin Chewable*] 81 mg PO DAILY 05/08/19 Metformin HCl 1,000 mg PO BID 05/08/19 Multivitamin [Daily Multiple Vitamin] 1 each PO DAILY 05/08/19 methocarbamoL [Methocarbamol] 750 mg PO BID 05/08/19 Gabapentin 100 mg PO TID 03/04/21 Dapagliflozin Propanediol [Farxiga] 10 mg PO DAILY 11/09/21 Magnesium Oxide [Magnesium] 500 mg PO BID 11/09/21 Metoprolol Succinate [Toprol Xl] 50 mg PO DAILY 11/09/21 glucosamine HCL [Glucosamine HCl] 2,000 mg PO DAILY 11/09/21 - Past Medical/Surgical History Diabetic: Yes -: Anemia -: Hyperlipidemia -: HTN -: Insulin-dependent diabetes -: GERD -: Neuropathy -: Obesity -: L knee surgery -: bilateral toe bunion removal Psychosocial/ Personal History: Patient is employed, lives at home with his family - Family History Father -: Heart disease Mother -: Liver disease, Other (see notes) Notes: liver cirrhosis. hepatitis - Social History Smoking Status: Never smoker Alcohol use: No CD- Drugs: No Caffeine use: Yes Place of Residence: Home Review of Systems 10-point ROS is otherwise unremarkable General: Fever, Chills Integumentary: Other (Wound to distal second left toe) Physical Examination - Physical Exam General: Alert, In no apparent distress, Oriented x3 HEENT: Atraumatic, PERRLA, Mucous membr. moist/pink, EOMI, Sclerae nonicteric Neck: Supple, 2+ carotid pulse no bruit, No LAD, Without JVD or thyroid abnormality Respiratory: Clear to auscultation bilaterally, Normal air movement Cardiovascular: Regular rate/rhythm, Normal S1 S2 Capillary refill: <2 Seconds Gastrointestinal: Normal bowel sounds, No tenderness Musculoskeletal: No tenderness Integumentary: Diabetic ulcer (Diabetic ulceration noted left distal second toe with necrotic tissue present, erythema.) Neurological: Normal gait, Normal speech, Normal strength at 5/5 x4 extr, Normal tone, Normal affect Lymphatics: No axilla or inguinal lymphadenopathy - Studies Laboratory Data (last 24 hrs) 07/25/22 15:56: Sodium 139, Potassium 4.0, BUN 30 H, Creatinine 1.51 H, Glucose 140 H, Total Bilirubin 0.2, AST 58 H, ALT 54, Alkaline Phosphatase 68 07/25/22 15:56: WBC 6.50, Hgb 11.6 L, Hct 35.8 L, Plt Count 177 Assessment and Plan - Plan Assessment: Suspected osteomyelitis distal left second toe Diabetes mellitus type 2insulin-dependent Hypertension Hyperlipidemia Plan: Suspected osteomyelitis distal left second toe: Continue broad-spectrum antibiotics with vancomycin, cefepime. General surgery, infectious disease consulted, MRI ordered. N.p.o. after midnight in case debridement is required or abscess present. Wound healing consulted. Anticipate patient will require PICC, long-term IV antibiotics. Diabetes mellitus type 2insulin-dependent: ACHS Accu-Chek, sliding scale insulin. A1c in the morning. Hypertension Hyperlipidemia: Continue home meds DVT PPX: SCD Code status: Full Discharge Plan: Home Plan to discharge in: Greater than 2 days - Advance Directives Does patient have a Living Will: No Does patient have a Durable POA for Healthcare: No - Code Status/Comfort Care Code Status Assessed: Yes (Full code) Critical Care: No Time Spent Managing Pts Care (In Minutes): 55
[2022-07-25] MEDS ORDERED: HYDROCODONE/APAP 5/325 MG TAB PO PRN (22:59)
[2022-07-25] MEDS ORDERED: ONDANSETRON 4 MG/2 ML VIAL IV PRN (22:59)
[2022-07-25] MEDS ORDERED: VANCOMYCIN 1 GM in NA CHLORIDE 0.9% 250 ML IVPB SCH (22:59)
[2022-07-25] MEDS: Ringers Lactate 1,000 ML IV SCH (23:24)
[2022-07-26 00:07] VITALS: BMI 41.3
[2022-07-26 06:16] LABS: Absolute Lymphocytes (CBC) 1.1 K/uL (0.7-4.9); Hematocrit 33.2 % (39.6-49.0); Lymphocytes % 19.5 % (15.3-44.8); MCV 82.2 fL (80-100); MPV 8.3 fL (7.6-11.3); RBC Red Blood Cell Count 4.03 M/uL (4.33-5.43)
[2022-07-26 06:23] LABS: Potassium 3.8 mmol/L (3.5-5.1)
[2022-07-26 07:27] LABS: Blood Morphology Comment NOT SEEN (NOT SEEN); Platelet Estimate ADEQ; Platelets, Giant FEW PRESENT
[2022-07-26] MEDS: INSULIN -REGULAR HUMAN 50 UNIT/0.5 ML ML SQ SCH ×4 (07:30→21:00)
[2022-07-26] MEDS: CEFEPIME 1 GM in NA CHLORIDE 0.9% 100 ML IV SCH ×2 (09:00→21:28)
--- NOTE | 2022-07-26 09:12 | RAD REPORT ---
EXAM DESCRIPTION: MRI - Foot Left Wo Cont - 07/26/2022 8:52 am CLINICAL HISTORY: eval for osteo Osteomyelitis, pain COMPARISON: Foot Left Wo Cont dated 04/23/2022; Foot Left Wo Cont dated 03/10/2022; Foot Left Wo Cont dated 12/18/2021; Foot Left Wo Cont dated 10/30/2021; Foot Left 3 View dated 07/25/2022 FINDINGS: There is chronic deformity of the distal phalanx of the great toe. No active osteomyelitis in the great toe. Moderate soft tissue edema and swelling is seen distal aspect of the second toe. Abnormal signal is s een involving middle and distal phalanx of the second toe likely indicating osteomyelitis. 12 mm T2 h yperintense collection is seen distal second toe adjacent to the distal phalanx. Findings discussed with Dr. Edwards. IMPRESSION: [id number] osteomyelitis suspected distal aspect the second toe as detailed.
[2022-07-26] MEDS ORDERED: NA CHLORIDE 0.9% 1,000 ML ONE (10:01)
--- NOTE | 2022-07-26 10:04 | P.CNS ---
Date of Consult: 07/26/22 Reason for consult: Left second toe infection History of present illness: Patient is a 52-year-old gentleman who I have been following in the wound healing center for several months with infection to the first and second toe. Patient has been treated with IV antibiotics and was doing better. Last Tuesday, however, he noted worsening of the left second toe wound. He went to urgent care Tuesday and was started on oral antibiotics. Started to have fevers and the wound looked worse to him. He came to the ER last night and was admitted. Patient denies sore throat, runny nose, cough, headache, dizziness or chest pain. Review of systems: Otherwise unremarkable Past medical history: Insulin-dependent diabetes, hyperlipidemia, hypertension Past surgical history: Left knee surgery and bilateral bunion surgery on his feet Allergies: Bee venom Social history: Patient does not smoke or drink alcohol Family history: Heart disease Vital signs: Stable, afebrile Physical exam: Awake, alert and oriented x3 Head and neck exam: No masses Chest: Clear Heart: S1-S2 Abdomen: Soft Extremity: Pulses are 2+ and equal bilaterally on the dorsalis pedis and posterior tibial area. Left second toe distal phalanx is markedly edematous, red, warm with a small open wound with pus in it. Neuro: Nonfocal but diminished bilateral lower extremity Diagnostic data: Laboratory data reviewed. X-rays and MRI reviewed with the radiologist. Patient has osteomyelitis of the distal phalanx and a 12 mm collection of fluid. Assessment: Left second toe diabetic infection with osteomyelitis Plan/recommendation: As patient has failed antibiotic therapy for several months, I believe that amputation of the second toe is indicated in this patient for prompt healing. All options discussed with the patient. We will proceed with left second toe amputation. Patient understands risks, benefits and alternatives and agrees to procedure. CC:
[2022-07-26] MEDS ORDERED: ONDANSETRON 4 MG/2 ML VIAL ONE (10:31)
[2022-07-26] MEDS ORDERED: dexAMETHasone 10 MG/ML VIAL ONE (10:31)
[2022-07-26] MEDS ORDERED: KETOROLAC 30 MG/ML INJ ONE (10:31)
[2022-07-26] MEDS ORDERED: FENTANYL CITR 100 MCG/2 ML ONE (10:32)
[2022-07-26] MEDS ORDERED: LIDOCAINE 2% MPF 5 ML VIAL ONE (10:32)
[2022-07-26] MEDS ORDERED: MIDAZOLAM HCL 2 MG/2 ML INJ ONE (10:32)
[2022-07-26] MEDS ORDERED: propofoL 200 MG/20 ML VIAL IV ONE (10:32)
--- NOTE | 2022-07-26 11:18 | P.OP ---
Date of Service: 07/26/22 Preop diagnosis: Left second toe diabetic infection with osteomyelitis, failed outpatient therapy Postop diagnosis: Same Procedure performed: Left second toe amputation Surgeon: Elliot Edwards MD Laser Printing Operator: MARTHA Henry Estimated blood loss: Minimal Specimen: Pus and left second toe Findings: As above Anesthesia: General Complications: None Drains: None Fluids and blood products: None applicable Disposition: Recovery room Operative note: Patient brought to the OR and placed in supine position. General anesthesia begun. Patient prepped and draped in usual sterile fashion. Marcaine 0.5% infiltrated in a field block fashion. 15 blade used to make a skin incision over the proximal phalanx where the skin was healthy appearing. The incision proceeded down to the distal part of the proximal phalanx. Bone excised and distal toe removed. Distal toe opened up and there was pus in it. Cultures were done. Bone cutter was utilized as needed. Rongeur was used to remove the rough edges. Rasp was used to smooth out the rough edges. Wound irrigated being controlled with cautery. 3-0 nylon used to close the wound loosely. Sterile dressing applied. Patient awakened taken recovery room in good general condition. CC:
--- NOTE | 2022-07-26 11:35 | PN ---
The patient is a 52-year-old male, consulted for left second toe osteomyelitis. He is not available in his room as he has gone for surgical amputation of the second toe. We will revisit this patient a nother time. ROBINA/VAZQUEZ Voice ID: [id number] Report ID: [id number]
[2022-07-26] MEDS ORDERED: HYDROMORPHONE HCL 1 MG/ML INJ IV PRN (12:00)
[2022-07-26 12:15] VITALS: O2SAT 100
[2022-07-26] MEDS: VANCOMYCIN 2 GM in NA CHLORIDE 0.9% 500 ML IVPB SCH (12:19)
[2022-07-26] MEDS: Ringers Lactate 1,000 ML IV SCH ×2 (12:19→18:59)
--- NOTE | 2022-07-27 02:04 | P.PN ---
Subjective Date of Service: 07/26/22 Spoke with General surgery. Status post amputation and wound was closed. Patient wanted to continue with IV antibiotics. Will change to oral antibiotics in a.m.. Review of Systems 10-point ROS is otherwise unremarkable Physical Examination - Vital Signs Temperature: 97.2 F Blood Pressure: 117/53 Pulse: 63 Respirations: 18 Pulse Ox (%): 98 - Physical Exam General: Alert, In no apparent distress HEENT: Atraumatic, PERRLA, EOMI Neck: Supple, JVD not distended Respiratory: Clear to auscultation bilaterally, Normal air movement Cardiovascular: Regular rate/rhythm, Normal S1 S2 Gastrointestinal: Normal bowel sounds, No tenderness Musculoskeletal: No tenderness Integumentary: No rashes Neurological: Normal speech, Normal tone, Normal affect Lymphatics: No axilla or inguinal lymphadenopathy - Studies Medications List Reviewed: Yes Assessment & Plan - Problems (Diagnosis) (1) Hyperlipidemia Current Visit: No Status: Chronic (2) Hypertension Current Visit: No Status: Chronic (3) Neuropathy Current Visit: No Status: Chronic (4) Osteomyelitis of toe of left foot Current Visit: No Status: Chronic - Plan 1. Continue with IV antibiotic ; change to oral antibiotics 2. wound is closed. Continue to monitor; outpatient general surgery follow-up 3. counselor/art therapist regarding diet and exercise and keeping pressure off that foot 4. Gentle IV hydration 5. Monitor CBC 6. Strict blood sugar monitoring 7. Pain control 8. GI and DVT prophylaxis - Advance Directives Does patient have a Living Will: No Does patient have a Durable POA for Healthcare: No - Code Status/Comfort Care Code Status Assessed: Yes Code Status: Full Code Critical Care: No Time Spent Managing PTS Care (In Minutes): 30
[2022-07-27] MEDS: VANCOMYCIN 2 GM in NA CHLORIDE 0.9% 500 ML IVPB SCH (04:26)
[2022-07-27] MEDS: Ringers Lactate 1,000 ML IV SCH (04:26)
[2022-07-27 05:42] LABS: Absolute Lymphocytes (CBC) 1.5 K/uL (0.7-4.9); Lymphocytes % 27.3 % (15.3-44.8); MPV 8.1 fL (7.6-11.3)
[2022-07-27 06:12] LABS: Potassium 4.5 mmol/L (3.5-5.1)
[2022-07-27] MEDS: INSULIN -REGULAR HUMAN 50 UNIT/0.5 ML ML SQ SCH (07:30)
--- NOTE | 2022-07-27 07:49 | P.PN ---
Subjective Date of Service: 07/27/22 Chief Complaint: Osteomyelitis Patient lying in bed with no signs of cardiopulmonary distress. Surgical site clean and dry with no drainage Physical Examination - Vital Signs Temperature: 97.0 F Blood Pressure: 120/58 Pulse: 55 Respirations: 18 Pulse Ox (%): 98 - Physical Exam General: Alert, In no apparent distress, Oriented x3 Neck: Supple Respiratory: Clear to auscultation bilaterally Cardiovascular: Normal pulses, Normal S1 S2 Gastrointestinal: Normal bowel sounds Musculoskeletal: Other (s/p amputation of left 2nd toe, day 1) Integumentary: Tenderness/swelling, Diabetic ulcer (s/p amputation of left 2nd toe, day 1) Neurological: Normal speech, Normal tone, Normal affect - Studies Hydrocodone Bitart/Acetaminophen (Hydrocodone/Apap 5/325 Mg Tab) 1 tab PO Q6H PRN PRN Reason: Pain scale 5-7 (Moderate) Last Admin: 07/26/22 21:27 Dose: 1 tab Hydromorphone HCl (Hydromorphone Hcl 1 Mg/Ml Inj) 1 mg IV Q4H PRN PRN Reason: Pain scale 8-10 (Severe) Cefepime HCl 1 gm/ Sodium (Chloride) 100 mls @ 200 mls/hr IV Q12HR [facility]; Protocol Last Admin: 07/26/22 21:28 Dose: 100 mls Lactated Ringer's (Lactated Ringers) 1,000 mls @ 100 mls/hr IV .Q10H [facility] Last Admin: 07/27/22 04:26 Dose: 1,000 mls Vancomycin HCl 2 gm/ Sodium (Chloride) 500 mls @ 250 mls/hr IVPB Q18H [facility] Last Admin: 07/27/22 04:26 Dose: 500 mls Insulin Human Regular (Insulin -Regular Human 50 Unit/0.5 Ml Ml) 0 unit SQ ACHS [facility]; Protocol Last Admin: 07/26/22 21:00 Dose: Not Given Ondansetron HCl (Ondansetron 4 Mg/2 Ml Vial) 4 mg IV Q6HP PRN PRN Reason: NAUSEA / VOMITING Sodium Chloride (Flush Normal Saline 10 Ml) 10 ml IV BID [facility] Last Admin: 07/26/22 21:00 Dose: Not Given Imagings Data: MRI - Foot Left Wo Cont - 07/26/2022 FINDINGS: There is chronic deformity of the distal phalanx of the great toe. No active osteomyelitis in the great toe. Moderate soft tissue edema and swelling is seen distal aspect of the second toe. Abnormal signal is seen involving middle and distal phalanx of the second toe likely indicating osteomyelitis. 12 mm T2 hyperintense collection is seen distal second toe adjacent to the distal phalanx. Findings discussed with Dr. Edwards. IMPRESSION: [id number] osteomyelitis suspected distal aspect the second toe as detailed Medications List Reviewed: Yes Assessment And Plan - Current Problems (Diagnosis) (1) Diabetic foot ulcer with osteomyelitis Current Visit: Yes Status: Acute Plan: Cultures: - 07/26 Would: [id number]; Pending for culture Antibiotics: - On IV Vancomycin and Cefepime (from 07/25) Recommendations: - Continue IV Vancomycin and Cefepime for total of 2 weeks - Can switch to PO Antibiotics Doxycycline and Ciprofloxacin for total of 2 weeks when discharge 07/26 Luz Finney performed Left second toe amputation, s/p day 1 - Plan - Diabetic ulcer with osteomyelitis distal left second toe - Diabetes mellitus II - Mild protein calorie malnutrition - Hypertension - Hyperlipidemia - Anemia of chronic disease - GERD - Neuropathy - Obesity - L knee surgery ID will closely monitor the patient for signs of infection with fever and WBC trends Case has been discussed with Dr. Kyle, N
[2022-07-27] MEDS: CEFEPIME 1 GM in NA CHLORIDE 0.9% 100 ML IV SCH (09:00)
[2022-07-27] MEDS ORDERED: CHLORHEXIDINE GLUCO 4% 120 ML TOP SCH (11:00)
[2022-07-27 12:14] VITALS: BP 120/58; TEMP 97
--- NOTE | 2022-07-27 13:45 | PN ---
Date of Progress Note: 07/27/2022 Subjective: The patient is awake, alert. No complaints. Objective: Vital Signs: Stable, afebrile. Extremities: Wound is clean dry and intact. There is no erythema, warmth, and edema. Laboratory Data: White count is 5.3, there is no left shift. Cultures are growing gram positive joaquín ci and clusters. Assessment: Status post left second toe amputation. Recommendations: The patient cleared for discharge on minocycline and Bactrim. Wound care as ordere d. [facility] next [facility]. Discharge plan discussed in detail with the lance ariza and Dr. Garza. /MODL Voice ID: [id number] Report ID: [id number]
[2022-07-27] MEDS ORDERED: MUPIROCIN 2% OINT 22GM TUBE TOP SCH (21:00)
== END 2022-07-27 12:30 | disposition home or self-care (01) | DRG 617 ==
LOC: ER 14:07 → ERHOLD 21:19 → 2ND 22:13
PROVIDERS: ADMIT Hospitalist; ATTEND Hospitalist
PROC: 0Y6S0Z1 Detachment at Left 2nd Toe, High, Open Approach (ICD-10-PCS; principal; 2022-07-26 10:00)
DX: E11.69 Type 2 diabetes mellitus with other specified complication (principal); E44.1 Mild protein-calorie malnutrition; L03.116 Cellulitis of left lower limb; Z68.41 Body mass index [BMI] 40.0-44.9, adult; M86.172 Other acute osteomyelitis, left ankle and foot; L03.032 Cellulitis of left toe; E11.40 Type 2 diabetes mellitus with diabetic neuropathy, unspecified; E11.621 Type 2 diabetes mellitus with foot ulcer; L97.529 Non-pressure chronic ulcer of other part of left foot with unspecified severity; I10 Essential (primary) hypertension; D63.8 Anemia in other chronic diseases classified elsewhere; E78.5 Hyperlipidemia, unspecified; E66.9 Obesity, unspecified; K21.9 Gastro-esophageal reflux disease without esophagitis; Z79.4 Long term (current) use of insulin; Z79.82 Long term (current) use of aspirin; Z79.84 Long term (current) use of oral hypoglycemic drugs; Z91.030 Bee allergy status; Z79.899 Other long term (current) drug therapy; Z20.822 Contact with and (suspected) exposure to COVID-19
CPT/HCPCS: 36415; 80048; 80053; 82947; 83036; 85025; 87070; 87075; 87077; 87186; 87205; 87811; 88305; 88311; 96365; 96366; 96375; 97116; 97161; 99285; J0692; J1100; J1815; J2001; J2250; J2405; J2704; J3010; J3370; J7030; J7040; J7050; J7120

== ENCOUNTER 2022-12-04 21:53 | Emergency (ER) | payer OTHER ==
--- OUTSIDE RECORDS SUMMARY | 2022-12-04 22:08 | XMS REPORT | Continuity of Care Document ---
:1970 Author Organization [facility] t Address [address] [place] [address] Care Team Providers Name Role Phone Asked, No Pcp Primary Care Physician Unavailable MIRNA FERNANDEZ Attending Clinician Unavailable LUAN MEJIA Attending Clinician Unavailable NEELIMA ESCUDERO Attending Clinician Unavailable Neelima Escudero MD Attending Clinician UNKNOWN, ATTENDING Attending Clinician Unavailable NORRIS DUNNE Attending Clinician Unavailable Norris Barron B Attending Clinician Unknown, Attending Attending Clinician Unavailable Doctor Unassigned, [place] Attending Clinician Unavailable Sol Araujo Attending Clinician SOL DE ANDA Attending Clinician Unavailable Brandie Giron Attending Clinician Mirna Fernandez MD Attending Clinician Only, Adc Test Attending Clinician Unavailable DAX KING Attending Clinician Unavailable TWIN SEYMOUR Attending Clinician Unavailable YANI LAZARO Attending Clinician Unavailable MIRNA FERNANDEZ Admitting Clinician Unavailable LUAN MEJIA Admitting Clinician Unavailable Mirna Fernandez MD Admitting Clinician Payers Payer Name Policy Type Policy Number Effective Date Expiration Date Stephanie villarreal [facility] [id number] 2018 PPO 00:00:00 [facility] 3 [id number] 2020 00:00:00 Problems Condition Condition Condition Status [...] it y of anemia anemia 00:00: [place] 00 Medical Branch Morbid Morbid Disease Active Univers obesity, obesity, 6-05 ity of unspecifie unspecifie 00:00: Joselito munguia d obesity d obesity 00 Medi jada type type Branch 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 3-30 ity of 00:00: [place] 00 Medical Branch Dyslipidem Dyslipidem Disease Active 2015-06 U newers ia ia 2-06 ity of 00:00: [place] [facility] Neuropathy Neuropathy Disease Active 2015-06 U nivers 2-06 ity of 00:00: [place] 00 Medical Branch Type 2 Type 2 Disease Active Univers diabetes, diabetes, 9 ity of uncontroll uncontroll 00:00: Joselito munguia ed, with ed, with 00 Medica l neuropathy neuropathy Br anch Essential Essential Disease Active Uni vers hypertensi hypertensi 9 it y of on on 00:00: [place] [facility] HLD HLD Disease Active Univers (hyperlipi (hyperlipi 02-23 it y of demia) demia) 00:00: [place] 00 Medical Branch Allergies, Adverse Reactions, Alerts Allergy Allergy Status Severity Reaction(s) Onset Inactive Treating Comm ents Source Name Type Date Date Clinician NO KNOWN Drug Active Univers ALLERGIE Class ity of S [facility] Social History Social Habit Start Date Stop Date Quantity Comments Source History [facility] University o f Alcohol Frequency [place] [facility] History [facility] University o f Alcohol Std Drinks [place] [facility] [place] History [facility] o f Alcohol Binge [place] [facility] Gender identity Sikhism [facility] Sexual orientation [facility] Tobacco use and 2022-10-17 2022-10-17 Smokeless Universit y of exposure 00:00:00 00:00:00 tobacco non-user [facility] dical Branch Alcohol intake 2022-10-17 2022-10-17 Current drinker Unive rsity of 00:00:00 00:00:00 of alcohol [facility] (finding) Branch Exposure to 2022-04-10 2022-04-20 Not sure [facility] SARS-CoV-2 (event) 00:00:00 07:49:00 [facility] Alcohol Comment 2020-12-28 2020-12-28 social Universit y of 00:00:00 00:00:00 [facility] Sex [birth year] Sikhism 00:00:00 00:00:00 Hospital Smoking Status Start Date Stop Date Source [facility] Medications Ordered Filled Start Stop Current Ordering Indication Dosage Frequency Signature Comments Components Source Medication Medication Date Date Medication? Clinician (SIG) Name Name Blood-Gluco Yes Change Univ ers se 6-04 transmitte ity of Transmitter 00:00: r every 90 [place] (DEXCOM G6 00 days, Dx: Medi 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 ) Marcie Blood-Gluco Yes Change Univ ers se Sensor 6-04 sensor ity of (DEXCOM G6 00:00: every 10 [place] SENSOR) 00 days,Dx: Medical Marcie E11.65 Branch Blood-Gluco Yes Change Univ ers se 6-04 transmitte ity of Transmitter 00:00: r every 90 [place] (DEXCOM G6 00 days, Dx: Medi 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 ) Marcie Blood-Gluco Yes Change Univ ers se Sensor 6-04 sensor ity of (DEXCOM G6 00:00: every 10 [place] SENSOR) 00 days,Dx: Medical Marcie E11.65 Branch GABAPENTIN Yes TAKE 1 Unive rs 100 mg 5-18 CAPSULE 3 ity of capsule 00:00: TIMES A [place] 00 DAY Medical Branch GABAPENTIN Yes TAKE 1 Unive rs 100 mg 5-18 CAPSULE 3 ity of capsule 00:00: TIMES A Medical Branch GABAPENTIN 2023-0 Yes TAKE 1 Unive rs 100 mg 5-18 CAPSULE 3 ity of capsule 00:00: TIMES A Medical Branch GABAPENTIN 2023-0 Yes TAKE 1 Unive rs 100 mg 5-18 CAPSULE 3 ity of capsule 00:00: TIMES A Medical Branch clobetasoL 2023-0 Yes [id number] Apply to Univers 0.05 % 4-30 area(s) 2 ity of cream 00:00: (two) times Medical daily. Branch Apply to affected arms, back clobetasoL 2023-0 Yes [id number] Apply to Univers 0.05 % 4-30 area(s) 2 ity of cream 00:00: (two) times Medical daily. Branch Apply to affected arms, back clobetasoL 2023-0 Yes [id number] Apply to Univers 0.05 % 4-30 area(s) 2 ity of cream 00:00: (two) times Medical daily. Branch Apply to affected arms, back clobetasoL 2023-0 Yes [id number] Apply to Univers 0.05 % 4-30 area(s) 2 ity of cream 00:00: (two) times Medical daily. Branch Apply to affected arms, back clobetasoL 2023-0 Yes [id number] Apply to Univers 0.05 % 4-30 area(s) 2 ity of cream 00:00: (two) 00 times Medical daily. Branch Apply to affected arms, back clobetasoL 2023-0 Yes [id number] Apply to Univers 0.05 % 4-30 area(s) 2 ity of cream 00:00: (two) times Medical daily. Branch Apply to affected arms, back clobetasoL 2023-0 Yes [id number] Apply to Univers 0.05 % 4-30 area(s) 2 ity of cream 00:00: (two) times Medical daily. Branch Apply to affected arms, back clobetasoL 2023-0 2023- Yes [id number] Apply to Univers 0.05 % 4-30 05-15 area(s) 2 ity of cream 00:00: 04:59 (two) [place] 00 :00 times Medical daily for Branch 14 days. Apply to affected arms, back clobetasoL 0 3- No [id number] Apply to Univers 0.05 % 30 30 area(s) 2 ity of cream 00:00: 00:00 (two) [place] 00 :00 times Medical daily for Branch 14 days. Apply to affected arms, back metFORMIN 2022-0 Yes TAKE 1 Univer s 1,000 mg 4-02 TABLET ity of tablet 00:00: TWICE [place] 00 DAILY WITH Medical MEALS Branch metFORMIN 2022-0 Yes TAKE 1 Univer s 1,000 mg 4-02 TABLET ity of tablet 00:00: TWICE [place] 00 DAILY WITH Medical MEALS Branch metFORMIN 2022-0 Yes TAKE 1 Univer s 1,000 mg 4-02 TABLET ity of tablet 00:00: TWICE [place] 00 DAILY WITH Medical MEALS Branch metFORMIN 2022-0 Yes TAKE 1 Univer s 1,000 mg 4-02 TABLET ity of tablet 00:00: TWICE [place] 00 DAILY WITH Medical MEALS Branch metFORMIN 2022-0 Yes TAKE 1 Univer s 1,000 mg 4-02 TABLET ity of tablet 00:00: TWICE [place] 00 DAILY WITH Medical MEALS Branch metFORMIN 2022-0 Yes TAKE 1 Univer s 1,000 mg 4-02 TABLET ity of tablet 00:00: TWICE [place] 00 DAILY WITH Medical MEALS Branch metFORMIN 3-0 Yes TAKE 1 Univer s 1,000 mg 4-02 TABLET ity of tablet 00:00: TWICE [place] 00 DAILY WITH Medical MEALS Branch metFORMIN 3-0 Yes TAKE 1 Univer s 1,000 mg 4-02 TABLET ity of tablet 00:00: TWICE [place] 00 DAILY WITH Medical MEALS Branch metFORMIN 3-0 Yes TAKE 1 Univer s 1,000 mg 4-02 TABLET ity of tablet 00:00: TWICE [place] 00 DAILY WITH Medical MEALS Branch metFORMIN 3-0 Yes TAKE 1 Univer s 1,000 mg 4-02 TABLET ity of tablet 00:00: TWICE [place] 00 DAILY WITH Medical MEALS Branch ACCU-CHEK 2022-0 Yes USE TO [employer] FASTCLIX 3-27 CHECK ity of LANCET DRUM 00:00: GLUCOSE 3 [place] Misc 00 TIMES A Medical DAY Branch ACCU-CHEK 3-0 Yes USE TO [employer] s FASTCLIX 3-27 CHECK ity of LANCET DRUM 00:00: GLUCOSE 3 [place] Misc 00 TIMES A Medical DAY Branch ACCU-CHEK 2023-0 Yes USE TO Univer s FASTCLIX 3-27 CHECK ity of LANCET DRUM 00:00: GLUCOSE 3 [place] Misc 00 TIMES A Medical DAY Branch ACCU-CHEK 2023-0 Yes USE TO Univer s FASTCLIX 3-27 CHECK ity of LANCET DRUM 00:00: GLUCOSE 3 [place] Misc 00 TIMES A Medical DAY Branch ACCU-CHEK 2022-0 Yes USE TO Univer s FASTCLIX 3-27 CHECK ity of LANCET DRUM 00:00: GLUCOSE 3 [place] Misc 00 TIMES A Medical DAY Branch ACCU-CHEK 2023-0 Yes USE TO Univer s FASTCLIX 3-27 CHECK ity of LANCET DRUM 00:00: GLUCOSE 3 [place] Misc 00 TIMES A Medical DAY Branch ACCU-CHEK 2023-0 Yes USE TO Univer s FASTCLIX 3-27 CHECK ity of LANCET DRUM 00:00: GLUCOSE 3 [place] Misc 00 TIMES A Medical DAY Branch ACCU-CHEK 3-0 Yes USE TO Univer s FASTCLIX 3-27 CHECK ity of LANCET DRUM 00:00: GLUCOSE 3 [place] Misc 00 TIMES A Medical DAY Branch ACCU-CHEK 3-0 Yes USE TO Univer s FASTCLIX 3-27 CHECK ity of LANCET DRUM 00:00: GLUCOSE 3 [place] Misc 00 TIMES A Medical DAY Branch ACCU-CHEK 202-0 Yes USE TO Univer s FASTCLIX 3-27 CHECK ity of LANCET DRUM 00:00: GLUCOSE 3 [place] Misc 00 TIMES A Medical DAY Branch ACCU-CHEK 3-0 Yes USE TO Univer s FASTCLIX 3-27 CHECK ity of LANCET DRUM 00:00: GLUCOSE 3 [place] Misc 00 TIMES A Medical DAY Branch dulaglutide 0 Yes [id number] 1.5mg inject 1 Univers (TRULICITY) 3-03 Pen under ity of 1.5 mg/0.5 00:00: the skin [place] mL PnIj 00 weekly. Medical Branch dulaglutide 0 Yes [id number] 1.5mg inject 1 Univers (TRULICITY) 3-03 Pen under ity of 1.5 mg/0.5 00:00: the skin [place] mL PnIj 00 weekly. Medical Branch dulaglutide Yes [id number] 1.5mg inject 1 Univers (TRULICITY) 3-03 Pen under ity of 1.5 mg/0.5 00:00: the skin [place] mL PnIj 00 weekly. Medical Branch dulaglutide Yes [id number] 1.5mg inject 1 Univers (TRULICITY) 3-03 Pen under ity of 1.5 mg/0.5 00:00: the skin [place] mL PnIj 00 weekly. Medical Branch dulaglutide Yes [id number] 1.5mg inject 1 Univers (TRULICITY) 3-03 Pen under ity of 1.5 mg/0.5 00:00: the skin [place] mL PnIj 00 weekly. Medical Branch dulaglutide Yes [id number] 1.5mg inject 1 Univers (TRULICITY) 3-03 Pen under ity of 1.5 mg/0.5 00:00: the skin [place] mL PnIj 00 weekly. Medical Branch dulaglutide Yes [id number] 1.5mg inject 1 Univers (TRULICITY) 3-03 Pen under ity of 1.5 mg/0.5 00:00: the skin [place] mL PnIj 00 weekly. Medical Branch dulaglutide Yes [id number] 1.5mg inject 1 Univers (TRULICITY) 3-03 Pen under ity of 1.5 mg/0.5 00:00: the skin [place] mL PnIj 00 weekly. Medical Branch dulaglutide Yes [id number] 1.5mg inject 1 Univers (TRULICITY) 3-03 Pen under ity of 1.5 mg/0.5 00:00: the skin [place] mL PnIj 00 weekly. Medical Branch dulaglutide Yes [id number] 1.5mg inject 1 Univers (TRULICITY) 3-03 Pen under ity of 1.5 mg/0.5 00:00: the skin [place] mL PnIj 00 weekly. Medical Branch dulaglutide Yes [id number] 1.5mg inject 1 Univers (TRULICITY) 3-03 Pen under ity of 1.5 mg/0.5 00:00: the skin [place] mL PnIj 00 weekly. Medical Branch dulaglutide Yes [id number] 1.5mg inject 1 Univers (TRULICITY) 3-03 Pen under ity of 1.5 mg/0.5 00:00: the skin [place] mL PnIj 00 weekly. Medical Branch dulaglutide Yes [id number] 1.5mg inject 1 Univers (TRULICITY) 3-03 Pen under ity of 1.5 mg/0.5 00:00: the skin [place] mL PnIj 00 weekly. Medical Branch dulaglutide Yes [id number] 1.5mg inject 1 Univers (TRULICITY) 3-03 Pen under ity of 1.5 mg/0.5 00:00: the skin [place] mL PnIj 00 weekly. Medical Branch dulaglutide Yes [id number] 1.5mg inject 1 Univers (TRULICITY) 3-03 Pen under ity of 1.5 mg/0.5 00:00: the skin [place] mL PnIj 00 weekly. Medical Branch tirzepatide Yes [id number] 5mg inject 5 Univers (MOUNJARO) 3-01 mg under ity o f 5 mg/0.5 mL 00:00: [place] skin [place] PnIj 00 weekly. Medical Branch tirzepatide Yes [id number] 7.5mg inject 7.5 Univers (MOUNJARO) 3-01 mg under ity o f 7.5 mg/0.5 00:00: the skin [place] mL PnIj 00 weekly. Medical Branch tirzepatide Yes [id number] 5mg inject 5 Univers (MOUNJARO) 3-01 mg under ity o f 5 mg/0.5 mL 00:00: the skin [place] PnIj 00 weekly. Medical Branch tirzepatide Yes [id number] 7.5mg inject 7.5 Univers (MOUNJARO) 3-01 mg under ity o f 7.5 mg/0.5 00:00: the skin [place] mL PnIj 00 weekly. Medical Branch tirzepatide Yes [id number] 5mg inject 5 Univers (MOUNJARO) 3-01 mg under ity o f 5 mg/0.5 mL 00:00: the skin [place] PnIj 00 weekly. Medical Branch tirzepatide Yes [id number] 7.5mg inject 7.5 Univers (MOUNJARO) 3-01 mg under ity o f 7.5 mg/0.5 00:00: the skin [place] mL PnIj 00 weekly. Medical Branch tirzepatide Yes [id number] 5mg inject 5 Univers (MOUNJARO) 3-01 mg under ity o f 5 mg/0.5 mL 00:00: the skin [place] PnIj 00 weekly. Medical Branch tirzepatide Yes [id number] 7.5mg inject 7.5 Univers (MOUNJARO) 3-01 mg under ity o f 7.5 mg/0.5 00:00: the skin [place] mL PnIj 00 weekly. Medical Branch tirzepatide 2022- No [id number] 5mg inject 5 Univers (MOUNJARO) 3-01 03-03 mg under ity of 5 mg/0.5 mL 00:00: 00:00 the skin [place] PnIj 00 :00 weekly. Medical Branch tirzepatide 2022- No [id number] 7.5mg inject 7.5 Univers (MOUNJARO) 3-01 03-03 mg under ity of 7.5 mg/0.5 00:00: 00:00 the skin [place] mL PnIj 00 :00 weekly. Medical Branch tirzepatide 2022- No [id number] 5mg inject 5 Univers (MOUNJARO) 3-01 03-03 mg under ity of 5 mg/0.5 mL 00:00: 00:00 the skin [place] PnIj 00 :00 weekly. Medical Branch tirzepatide 2022- No [id number] 7.5mg inject 7.5 Univers (MOUNJARO) 3-01 03-03 mg under ity of 7.5 mg/0.5 00:00: 00:00 the skin [place] mL PnIj 00 :00 weekly. Medical Branch dapaglifloz 2023-0 Yes 10mg Take 1 Univ ers in 2-26 tablet by ity of () 00:00: [place] 10 mg 00 the Medical tablet morning. Branch dapaglifloz 2023-0 Yes 10mg Take 1 Univ ers in 2-26 tablet by ity of () 00:00: [place] 10 mg 00 the Medical tablet morning. Branch dapaglifloz 2023-0 Yes 10mg Take 1 Univ ers in 2-26 tablet by ity of () 00:00: [place] 10 mg 00 the Medical tablet morning. Branch dapaglifloz 2023-0 Yes 10mg Take 1 Univ ers in 2-26 tablet by ity of () 00:00: [place] 10 mg 00 the Medical tablet morning. Branch dapaglifloz 2023-0 Yes 10mg Take 1 Univ ers in 2-26 tablet by ity of () 00:00: [place] 10 mg 00 the Medical tablet morning. Branch dapaglifloz 2023-0 Yes 10mg Take 1 Univ ers in 2-26 tablet by ity of () 00:00: [place] 10 mg 00 the Medical tablet morning. Branch dapaglifloz 2023-0 Yes 10mg Take 1 Univ ers in 2-26 tablet by ity of () 00:00: [place] 10 mg 00 the Medical tablet morning. Branch dapaglifloz 2023-0 Yes 10mg Take 1 Univ ers in 2-26 tablet by ity of () 00:00: [place] 10 mg 00 the Medical tablet morning. Branch dapaglifloz 2023-0 Yes 10mg Take 1 Univ ers in 2-26 tablet by ity of () 00:00: [place] 10 mg 00 the Medical tablet morning. Branch dapaglifloz 2023-0 Yes 10mg Take 1 Univ ers in 2-26 tablet by ity of () 00:00: [place] 10 mg 00 the Medical tablet morning. Branch dapaglifloz 2023-0 Yes 10mg Take 1 Univ ers in 2-26 tablet by ity of () 00:00: [place] 10 mg 00 the Medical tablet morning. Branch dapaglifloz 2023-0 Yes 10mg Take 1 Univ ers in 2-26 tablet by ity of () 00:00: mouth [place] 10 mg 00 the Medical tablet morning. Branch dapaglifloz 2023-0 Yes 10mg Take 1 Univ ers in 2-26 tablet by ity of () 00:00: [place] 10 mg 00 the Medical tablet morning. Branch dapaglifloz 2023-0 Yes 10mg Take 1 Univ ers in 2-26 tablet by ity of () 00:00: mouth [place] 10 mg 00 the Medical tablet morning. Branch dapaglifloz 2023-0 Yes 10mg Take 1 Univ ers in 2-26 tablet by ity of () 00:00: mouth [place] 10 mg 00 the Medical tablet morning. Branch dapaglifloz 2023-0 Yes 10mg Take 1 Univ ers in 2-26 tablet by ity of () 00:00: [place] 10 mg 00 the Medical tablet morning. Branch dapaglifloz 2023-0 Yes 10mg Take 1 Univ ers in 2-26 tablet by ity of () 00:00: [place] 10 mg 00 the Medical tablet morning. Branch dapaglifloz 2023-0 Yes 10mg Take 1 Univ ers in 2-26 tablet by ity of () 00:00: mouth [place] 10 mg 00 the Medical tablet morning. Branch dapaglifloz 2023-0 Yes 10mg Take 1 Univ ers in 2-26 tablet by ity of () 00:00: [place] 10 mg 00 the Medical tablet morning. Branch dapaglifloz 2023-0 Yes 10mg Take 1 Univ ers in 2-26 tablet by ity of () 00:00: [place] 10 mg 00 the Medical tablet morning. Branch dapaglifloz 2023-0 Yes 10mg Take 1 Univ ers in 2-26 tablet by ity of () 00:00: [place] 10 mg 00 the Medical tablet morning. Branch dapaglifloz 2023-0 Yes 10mg Take 1 Univ ers in 2-26 tablet by ity of (FARXIGA) 00:00: [place] 10 mg 00 the Medical tablet morning. Branch dapaglifloz 2022-0 Yes 10mg Take 1 Univ ers in 2-26 tablet by ity of (FARXIGA) 00:00: [place] 10 mg 00 the Medical tablet morning. Branch lisinopriL- 2022-0 Yes [id number] TAKE 1 Univers hydrochloro 1-29 TABLET ity of thiazide 00:00: TWICE A [place] 20-12.5 mg 00 DAY Medical per tablet Branch lisinopriL- 2022-0 Yes [id number] TAKE 1 Univers hydrochloro 1-29 TABLET ity of thiazide 00:00: TWICE A [place] 20-12.5 mg 00 DAY Medical per tablet Branch lisinopriL- 2022-0 Yes [id number] TAKE 1 Univers hydrochloro 1-29 TABLET ity of thiazide 00:00: TWICE A [place] 20-12.5 mg 00 DAY Medical per tablet Branch lisinopriL- 2022-0 Yes [id number] TAKE 1 Univers hydrochloro 1-29 TABLET ity of thiazide 00:00: TWICE A [place] 20-12.5 mg 00 DAY Medical per tablet Branch lisinopriL- 2022-0 Yes [id number] TAKE 1 Univers hydrochloro 1-29 TABLET ity of thiazide 00:00: TWICE A [place] 20-12.5 mg 00 DAY Medical per tablet Branch lisinopriL- 2022-0 Yes [id number] TAKE 1 Univers hydrochloro 1-29 TABLET ity of thiazide 00:00: TWICE A [place] 20-12.5 mg 00 DAY Medical per tablet Branch lisinopriL- 2022-0 Yes [id number] TAKE 1 Univers hydrochloro 1-29 TABLET ity of thiazide 00:00: TWICE A [place] 20-12.5 mg 00 DAY Medical per tablet Branch lisinopriL- 2022-0 Yes [id number] TAKE 1 Univers hydrochloro 1-29 TABLET ity of thiazide 00:00: TWICE A [place] 20-12.5 mg 00 DAY Medical per tablet Branch lisinopriL- 2022-0 Yes [id number] TAKE 1 Univers hydrochloro 1-29 TABLET ity of thiazide 00:00: TWICE A [place] 20-12.5 mg 00 DAY Medical per tablet Branch lisinopriL- 2022-0 Yes [id number] TAKE 1 Univers hydrochloro 1-29 TABLET ity of thiazide 00:00: TWICE A [place] 20-12.5 mg 00 DAY Medical per tablet Branch lisinopriL- 2022-0 Yes [id number] TAKE 1 Univers hydrochloro 1-29 TABLET ity of thiazide 00:00: TWICE A [place] 20-12.5 mg 00 DAY Medical per tablet Branch lisinopriL- 2022-0 Yes [id number] TAKE 1 Univers hydrochloro 1-29 TABLET ity of thiazide 00:00: TWICE A [place] 20-12.5 mg 00 DAY Medical per tablet Branch lisinopriL- 2022-0 Yes [id number] TAKE 1 Univers hydrochloro 1-29 TABLET ity of thiazide 00:00: TWICE A [place] 20-12.5 mg 00 DAY Medical per tablet Branch lisinopriL- 2022-0 Yes [id number] TAKE 1 Univers hydrochloro 1-29 TABLET ity of thiazide 00:00: TWICE A [place] 20-12.5 mg 00 DAY Medical per tablet Branch lisinopriL- 2022-0 Yes [id number] TAKE 1 Univers hydrochloro 1-29 TABLET ity of thiazide 00:00: TWICE A [place] 20-12.5 mg 00 DAY Medical per tablet Branch lisinopriL- 2022-0 Yes [id number] TAKE 1 Univers hydrochloro 1-29 TABLET ity of thiazide 00:00: TWICE A [place] 20-12.5 mg 00 DAY Medical per tablet Branch lisinopriL- 2022-0 Yes [id number] TAKE 1 Univers hydrochloro 1-29 TABLET ity of thiazide 00:00: TWICE A [place] 20-12.5 mg 00 DAY Medical per tablet Branch lisinopriL- 2022-0 Yes [id number] TAKE 1 Univers hydrochloro 1-29 TABLET ity of thiazide 00:00: TWICE A [place] 20-12.5 mg 00 DAY Medical per tablet Branch lisinopriL- 2022-0 Yes [id number] TAKE 1 Univers hydrochloro 1-29 TABLET ity of thiazide 00:00: TWICE A [place] 20-12.5 mg 00 DAY Medical per tablet Branch lisinopriL- 2022-0 Yes [id number] TAKE 1 Univers hydrochloro 1-29 TABLET ity of thiazide 00:00: TWICE A [place] 20-12.5 mg 00 DAY Medical per tablet Branch lisinopriL- 2022-0 Yes [id number] TAKE 1 Univers hydrochloro 1-29 TABLET ity of thiazide 00:00: TWICE A [place] 20-12.5 mg 00 DAY Medical per tablet Branch lisinopriL- 2022-0 Yes [id number] TAKE 1 Univers hydrochloro 1-29 TABLET ity of thiazide 00:00: TWICE A [place] 20-12.5 mg 00 DAY Medical per tablet Branch lisinopriL- 2022-0 Yes [id number] TAKE 1 Univers hydrochloro 1-29 TABLET ity of thiazide 00:00: TWICE A [place] 20-12.5 mg 00 DAY Medical per tablet Branch lisinopriL- 2022-0 Yes [id number] TAKE 1 Univers hydrochloro 1-29 TABLET ity of thiazide 00:00: TWICE A [place] 20-12.5 mg 00 DAY Medical per tablet Branch HUMULIN R 0 Yes Inject Univer s U-500, 07-12 90-100 ity of CONC, 00:00: units [place] KWIKPEN 500 00 under the Med ical unit/mL (3 skin at Branch mL) InPn breakfast, THEN 100-110 units with lunch, THEN 80-100 units at dinner Dx E11.40 Max dose 310 units daily. HUMULIN R 2022-0 Yes Inject Univer s U-500, 07-12 90-100 ity of CONC, 00:00: units [place] KWIKPEN 500 00 under the Med ical unit/mL (3 skin at Branch mL) InPn breakfast, THEN 100-110 units with lunch, THEN 80-100 units at dinner Dx E11.40 Max dose 310 units daily. HUMULIN R 2022-0 Yes Inject Univer s U-500, 07-12 90-100 ity of CONC, 00:00: units [place] KWIKPEN 500 00 under the Med ical unit/mL (3 skin at Branch mL) InPn breakfast, THEN 100-110 units with lunch, THEN 80-100 units at dinner Dx E11.40 Max dose 310 units daily. HUMULIN R 2022-0 Yes Inject Univer s U-500, 23 90-100 ity of CONC, 00:00: units [place] KWIKPEN 500 00 under the Med ical unit/mL (3 skin at Branch mL) InPn breakfast, THEN 100-110 units with lunch, THEN 80-100 units at dinner Dx E11.40 Max dose 310 units daily. HUMULIN R 2023-0 Yes Inject Univer s U-500, 1-23 90-100 ity of CONC, 00:00: units [place] KWIKPEN 500 00 under the Med ical unit/mL (3 skin at Branch mL) InPn breakfast, THEN 100-110 units with lunch, THEN 80-100 units at dinner Dx E11.40 Max dose 310 units daily. HUMULIN R 2023-0 Yes Inject Univer s U-500, 1-23 90-100 ity of CONC, 00:00: units [place] KWIKPEN 500 00 under the Med ical unit/mL (3 skin at Branch mL) InPn breakfast, THEN 100-110 units with lunch, THEN 80-100 units at dinner Dx E11.40 Max dose 310 units daily. HUMULIN R 2023-0 Yes Inject Univer s U-500, 1-23 90-100 ity of CONC, 00:00: units [place] KWIKPEN 500 00 under the Med ical unit/mL (3 skin at Branch mL) InPn breakfast, THEN 100-110 units with lunch, THEN 80-100 units at dinner Dx E11.40 Max dose 310 units daily. HUMULIN R 2023-0 Yes Inject Univer s U-500, 1-23 90-100 ity of CONC, 00:00: units [place] KWIKPEN 500 00 under the Med ical unit/mL (3 skin at Branch mL) InPn breakfast, THEN 100-110 units with lunch, THEN 80-100 units at dinner Dx E11.40 Max dose 310 units daily. HUMULIN R 2023-0 Yes Inject Univer s U-500, 1-23 90-100 ity of CONC, 00:00: units [place] KWIKPEN 500 00 under the Med ical unit/mL (3 skin at Branch mL) InPn breakfast, THEN 100-110 units with lunch, THEN 80-100 units at dinner Dx E11.40 Max dose 310 units daily. HUMULIN R 2023-0 Yes Inject Univer s U-500, 1-23 90-100 ity of CONC, 00:00: units [place] KWIKPEN 500 00 under the Med ical unit/mL (3 skin at Branch mL) InPn breakfast, THEN 100-110 units with lunch, THEN 80-100 units at dinner Dx E11.40 Max dose 310 units daily. HUMULIN R 2023-0 Yes Inject Univer s U-500, 1-23 90-100 ity of CONC, 00:00: units [place] KWIKPEN 500 00 under the Med ical unit/mL (3 skin at Branch mL) InPn breakfast, THEN 100-110 units with lunch, THEN 80-100 units at dinner Dx E11.40 Max dose 310 units daily. HUMULIN R 2023-0 Yes Inject Univer s U-500, 1-23 90-100 ity of CONC, 00:00: units [place] KWIKPEN 500 00 under the Med ical unit/mL (3 skin at Branch mL) InPn breakfast, THEN 100-110 units with lunch, THEN 80-100 units at dinner Dx E11.40 Max dose 310 units daily. HUMULIN R 2023-0 Yes Inject Univer s U-500, 1-23 90-100 ity of CONC, 00:00: units [place] KWIKPEN 500 00 under the Med ical unit/mL (3 skin at Branch mL) InPn breakfast, THEN 100-110 units with lunch, THEN 80-100 units at dinner Dx E11.40 Max dose 310 units daily. HUMULIN R 2023-0 Yes Inject Univer s U-500, 1-23 90-100 ity of CONC, 00:00: units [place] KWIKPEN 500 00 under the Med ical unit/mL (3 skin at Branch mL) InPn breakfast, THEN 100-110 units with lunch, THEN 80-100 units at dinner Dx E11.40 Max dose 310 units daily. HUMULIN R 2023-0 Yes Inject Univer s U-500, 1-23 90-100 ity of CONC, 00:00: units [place] KWIKPEN 500 00 under the Med ical unit/mL (3 skin at Branch mL) InPn breakfast, THEN 100-110 units with lunch, THEN 80-100 units at dinner Dx E11.40 Max dose 310 units daily. HUMULIN R 2023-0 Yes Inject Univer s U-500, 1-23 90-100 ity of CONC, 00:00: units [place] KWIKPEN 500 00 under the Med ical unit/mL (3 skin at Branch mL) InPn breakfast, THEN 100-110 units with lunch, THEN 80-100 units at dinner Dx E11.40 Max dose 310 units daily. HUMULIN R 2023-0 Yes Inject Univer s U-500, 1-23 90-100 ity of CONC, 00:00: units [place] KWIKPEN 500 00 under the Med ical unit/mL (3 skin at Branch mL) InPn breakfast, THEN 100-110 units with lunch, THEN 80-100 units at dinner Dx E11.40 Max dose 310 units daily. HUMULIN R 2023-0 Yes Inject Univer s U-500, 1-23 90-100 ity of CONC, 00:00: units [place] KWIKPEN 500 00 under the Med ical unit/mL (3 skin at Branch mL) InPn breakfast, THEN 100-110 units with lunch, THEN 80-100 units at dinner Dx E11.40 Max dose 310 units daily. HUMULIN R 2023-0 Yes Inject Univer s U-500, 1- 90-100 ity of CONC, 00:00: units [place] KWIKPEN 500 00 under the Med ical unit/mL (3 skin at Branch mL) InPn breakfast, THEN 100-110 units with lunch, THEN 80-100 units at dinner Dx E11.40 Max dose 310 units daily. HUMULIN R 2023-0 Yes Inject Univer s U-500, 1- 90-100 ity of CONC, 00:00: units [place] KWIKPEN 500 00 under the Med ical unit/mL (3 skin at Branch mL) InPn breakfast, THEN 100-110 units with lunch, THEN 80-100 units at dinner Dx E11.40 Max dose 310 units daily. HUMULIN R 2023-0 Yes Inject Univer s U-500, 1-23 90-100 ity of CONC, 00:00: units [place] KWIKPEN 500 00 under the Med ical unit/mL (3 skin at Branch mL) InPn breakfast, THEN 100-110 units with lunch, THEN 80-100 units at dinner Dx E11.40 Max dose 310 units daily. HUMULIN R 2023-0 Yes Inject Univer s U-500, 1-23 90-100 ity of CONC, 00:00: units [place] KWIKPEN 500 00 under the Med ical unit/mL (3 skin at Branch mL) InPn breakfast, THEN 100-110 units with lunch, THEN 80-100 units at dinner Dx E11.40 Max dose 310 units daily. HUMULIN R 2023-0 Yes Inject Univer s U-500, 1-23 90-100 ity of CONC, 00:00: units [place] KWIKPEN 500 00 under the Med ical unit/mL (3 skin at Branch mL) InPn breakfast, THEN 100-110 units with lunch, THEN 80-100 units at dinner Dx E11.40 Max dose 310 units daily. HUMULIN R 2022-0 Yes Inject Univer s U-500, -23 90-100 ity of CONC, 00:00: units [place] KWIKPEN 500 00 under the Med ical unit/mL (3 skin at Branch mL) InPn breakfast, THEN 100-110 units with lunch, THEN 80-100 units at dinner Dx E11.40 Max dose 310 units daily. HUMULIN R 2022-0 Yes Inject Univer s U-500, - 90-100 ity of CONC, 00:00: units [place] KWIKPEN 500 00 under the Med ical unit/mL (3 skin at Branch mL) InPn breakfast, THEN 100-110 units with lunch, THEN 80-100 units at dinner Dx E11.40 Max dose 310 units daily. HUMULIN R 2022-0 Yes Inject Univer s U-500, 07-12 90-100 ity of CONC, 00:00: units [place] KWIKPEN 500 00 under the Med ical unit/mL (3 skin at Branch mL) InPn breakfast, THEN 100-110 units with lunch, THEN 80-100 units at dinner Dx E11.40 Max dose 310 units daily. insulin 2022-0 Yes [id number] Inject Uni vers regular hum 1-04 90-100 ity of U-500 conc 00:00: units at [place] 500 unit/mL 00 breakfast, Me dical (3 mL) InPn 100-110 Branc h units with lunch and 80-100 units at dinner Dx E11.40 insulin 2022-0 Yes [id number] Inject Uni vers regular hum 1-04 90-100 ity of U-500 conc 00:00: units [place] 500 unit/mL 00 under the Med ical (3 mL) InPn skin at Branc h breakfast, THEN 100-110 units with lunch, THEN 80-100 units at dinner Dx E11.40 Insulin 2022-0 Yes Use 3 [facility] [place], 1-04 times ity of Disposable, 00:00: daily with [place] (BD INSULIN 00 insulin. Medi jada PEN NEEDLE Dx E11.65 Bran UF) 31 gauge x 5/16" Ndle Insulin 2022-0 Yes Use 3 [facility] [place], 1-04 times ity of Disposable, 00:00: daily with [place] (BD INSULIN 00 insulin. Medi jada PEN NEEDLE Dx E11.65 Bran UF) 31 gauge x 5/16" Ndle Insulin 2022-0 Yes Use 3 [facility] [place], 1-04 times ity of Disposable, 00:00: daily with [place] (BD INSULIN 00 insulin. Medi jada PEN NEEDLE Dx E11.65 Bran ch UF) 31 gauge x 5/16" Ndle Insulin 2022-0 Yes Use 3 [facility] [place], 1-04 times ity of Disposable, 00:00: daily with [place] (BD INSULIN 00 insulin. Medi jada PEN NEEDLE Dx E11.65 Bran ch UF) 31 gauge x 5/16" Ndle Insulin 2022-0 Yes Use 3 [facility] [place], 1-04 times ity of Disposable, 00:00: daily with [place] (BD INSULIN 00 insulin. Medi jada PEN NEEDLE Dx E11.65 Bran ch UF) 31 gauge x 5/16" Ndle Insulin 2022-0 Yes Use 3 [facility] [place], 1-04 times ity of Disposable, 00:00: daily with [place] (BD INSULIN 00 insulin. Medi jada PEN NEEDLE Dx E11.65 Bran ch UF) 31 gauge x 5/16" Ndle Insulin 2022-0 Yes Use 3 [facility] [place], 1-04 times ity of Disposable, 00:00: daily with [place] (BD INSULIN 00 insulin. Medi jada PEN NEEDLE Dx E11.65 Bran UF) 31 gauge x 5/16" Ndle Insulin 2022-0 Yes Use 3 [facility] [place], 1-04 times ity of Disposable, 00:00: daily with [place] (BD INSULIN 00 insulin. Medi jada PEN NEEDLE Dx E11.65 Bran ch UF) 31 gauge x 5/16" Ndle Insulin 2022-0 Yes Use 3 [facility] [place], 1-04 times ity of Disposable, 00:00: daily with [place] (BD INSULIN 00 insulin. Medi jada PEN NEEDLE Dx E11.65 Bran ch UF) 31 gauge x 5/16" Ndle Insulin 2022-0 Yes Use 3 [facility] [place], 1-04 times ity of Disposable, 00:00: daily with [place] (BD INSULIN 00 insulin. Medi jada PEN NEEDLE Dx E11.65 Bran ch UF) 31 gauge x 5/16" Ndle Insulin 2022-0 Yes Use 3 [facility] [place], 1-04 times ity of Disposable, 00:00: daily with [place] (BD INSULIN 00 insulin. Medi jada PEN NEEDLE Dx E11.65 Bran ch UF) 31 gauge x 5/16" Ndle Insulin 2022-0 Yes Use 3 [facility] [place], 1-04 times ity of Disposable, 00:00: daily with [place] (BD INSULIN 00 insulin. Medi jada PEN NEEDLE Dx E11.65 Bran ch UF) 31 gauge x 5/16" Ndle Insulin 2022-0 Yes Use 3 [facility] [place], 1-04 times ity of Disposable, 00:00: daily with [place] (BD INSULIN 00 insulin. Medi jada PEN NEEDLE Dx E11.65 Bran ch UF) 31 gauge x 5/16" Ndle Insulin 2022-0 Yes Use 3 [facility] [place], 1-04 times ity of Disposable, 00:00: daily with [place] (BD INSULIN 00 insulin. Medi jada PEN NEEDLE Dx E11.65 Bran ch UF) 31 gauge x 5/16" Ndle Insulin 2022-0 Yes Use 3 [facility] [place], 1-04 times ity of Disposable, 00:00: daily with [place] (BD INSULIN 00 insulin. Medi jada PEN NEEDLE Dx E11.65 Bran ch UF) 31 gauge x 5/16" Ndle Insulin 2022-0 Yes Use 3 [facility] [place], 1-04 times ity of Disposable, 00:00: daily with [place] (BD INSULIN 00 insulin. Medi jada PEN NEEDLE Dx E11.65 Bran UF) 31 gauge x 5/16" Ndle Insulin 2022-0 Yes Use 3 [facility] [place], 1-04 times ity of Disposable, 00:00: daily with [place] (BD INSULIN 00 insulin. Medi jada PEN NEEDLE Dx E11.65 Bran ch UF) 31 gauge x 5/16" Ndle Insulin 2022-0 Yes Use 3 [facility] [place], 1-04 times ity of Disposable, 00:00: daily with [place] (BD INSULIN 00 insulin. Medi jada PEN NEEDLE Dx E11.65 Bran ch UF) 31 gauge x 5/16" Ndle Insulin 202-0 Yes Use 3 [facility] [place], 1-04 times ity of Disposable, 00:00: daily with [place] (BD INSULIN 00 insulin. Medi jada PEN NEEDLE Dx E11.65 Bran UF) 31 gauge x 5/16" Ndle Insulin 0 Yes Use 3 [facility] [place], 1-04 times ity of Disposable, 00:00: daily with [place] (BD INSULIN 00 insulin. Medi jada PEN NEEDLE Dx E11.65 Bran UF) 31 gauge x 5/16" Ndle Insulin 0 Yes Use 3 [facility] [place], 1-04 times ity of Disposable, 00:00: daily with [place] (BD INSULIN 00 insulin. Medi jada PEN NEEDLE Dx E11.65 Bran UF) 31 gauge x 5/16" Ndle Insulin 0 Yes Use 3 [facility] [place], 1-04 times ity of Disposable, 00:00: daily with [place] (BD INSULIN 00 insulin. Medi jada PEN NEEDLE Dx E11.65 Bran UF) 31 gauge x 5/16" Ndle Insulin 2022-0 Yes Use 3 [facility] [place], 1-04 times ity of Disposable, 00:00: daily with [place] (BD INSULIN 00 insulin. Medi jada PEN NEEDLE Dx E11.65 Bran UF) 31 gauge x 5/16" Ndle Insulin 2022-0 Yes Use 3 [facility] [place], 1-04 times ity of Disposable, 00:00: daily with [place] (BD INSULIN 00 insulin. Medi jada PEN NEEDLE Dx E11.65 Bran UF) 31 gauge x 5/16" Ndle Insulin 2022-0 Yes Use 3 [facility] [place], 1-04 times ity of Disposable, 00:00: daily with [place] (BD INSULIN 00 insulin. Medi jada PEN NEEDLE Dx E11.65 Bran UF) 31 gauge x 5/16" Ndle Insulin 2022-0 Yes Use 3 [facility] [place], 1-04 times ity of Disposable, 00:00: daily with [place] (BD INSULIN 00 insulin. Medi jada PEN NEEDLE Dx E11.65 Bran UF) 31 gauge x 5/16" Ndle Insulin 2022-0 Yes Use 3 [facility] [place], 1-04 times ity of Disposable, 00:00: daily with [place] (BD INSULIN 00 insulin. Medi jada PEN NEEDLE Dx E11.65 Bran UF) 31 gauge x 5/16" Ndle insulin 0 2023- No [id number] Inject Un [facility] regular hum -09 18- 90-100 ity o f U-500 conc 00:00: 00:00 units [place] 500 unit/mL 00 :00 under the Med ical (3 mL) InPn skin at Branc h breakfast, THEN 100-110 units with lunch, THEN 80-100 units at dinner Dx E11.40 insulin 2022- No [id number] Inject Un [facility] regular hum 06-23-04 90-100 ity o f U-500 conc 00:00: 00:00 units [place] 500 unit/mL 00 :00 under the Med ical (3 mL) InPn skin at Branc h breakfast, THEN 100-110 units with lunch, THEN 80-100 units at dinner Dx E11.40 insulin 2021-06 Yes [id number] Inject Uni vers regular 2-24 90-100 ity of human 00:00: units at [place] (HUMULIN R) 00 breakfast, Me dical 500 unit/mL 100-110 Branc h injection units with lunch and 80-100 units at dinner Dx E11.40 insulin 2021-06 Yes [id number] Inject Uni vers regular 2-24 90-100 ity of human 00:00: units at [place] (HUMULIN R) 00 breakfast, Me dical 500 unit/mL 100-110 Branc h injection units with lunch and 80-100 units at dinner Dx E11.40 insulin 2021-06 Yes [id number] Inject Uni vers regular 2-24 90-100 ity of human 00:00: units at [place] (HUMULIN R) 00 breakfast, Me dical 500 unit/mL 100-110 Branc h injection units with lunch and 80-100 units at dinner Dx E11.40 insulin 2021-06 Yes [id number] Inject Uni vers regular 2-24 90-100 ity of human 00:00: units at [place] (HUMULIN R) 00 breakfast, Me dical 500 unit/mL 100-110 Branc h injection units with lunch and 80-100 units at dinner Dx E11.40 insulin 2021-06 Yes [id number] Inject Uni vers regular 2-24 90-100 ity of human 00:00: units at [place] (HUMULIN R) 00 breakfast, Me dical 500 unit/mL 100-110 Branc h injection units with lunch and 80-100 units at dinner Dx E11.40 insulin 2021-06- No [id number] Inject Un b[facility] regular 2-24 -04 90-100 ity of human 00:00: 00:00 units at [place] (HUMULIN R) 00 :00 breakfast, Me dical 500 unit/mL 100-110 Branc h injection units with lunch and 80-100 units at dinner Dx E11.40 insulin 2021-06 2023- No [id number] Inject Un b[facility] regular 2-24 01-04 90-100 ity of human 00:00: 00:00 units at [place] (HUMULIN R) 00 :00 breakfast, Me dical 500 unit/mL 100-110 Branc h injection units with lunch and 80-100 units at dinner Dx E11.40 insulin 2021-06 Yes [id number] Inject Uni vers regular 2-20 90-100 ity of human 00:00: units at [place] (HUMULIN R) 00 breakfast, Me dical 500 unit/mL 100-110 Branc h injection units with lunch and 80-100 units at dinner Dx E11.40 insulin 2021-06 Yes [id number] Inject Uni vers regular 2-20 90-100 ity of human 00:00: units at [place] (HUMULIN R) 00 breakfast, Me dical 500 unit/mL 100-110 Branc h injection units with lunch and 80-100 units at dinner Dx E11.40 insulin 2021-06 Yes [id number] Inject Uni vers regular 2-20 90-100 ity of human 00:00: units at [place] (HUMULIN R) 00 breakfast, Me dical 500 unit/mL 100-110 Branc h injection units with lunch and 80-100 units at dinner Dx E11.40 insulin 2021-06 Yes [id number] Inject Uni vers regular 2-15 90-100 ity of human 00:00: units at [place] (HUMULIN R) 00 breakfast, Me dical 500 unit/mL 100-110 Branc h injection units with lunch and 80-100 units at dinner Dx E11.40 Insulin 2021-06 Yes Use 3 [facility] [place], 2-15 times ity of Disposable, 00:00: daily with [place] (BD INSULIN 00 insulin. Medi jada PEN NEEDLE Dx E11.65 Bran ch UF) 31 gauge x 5/16" Ndle insulin 2021-06 Yes [id number] 1{appli 1 Un b[facility] U-500 2-15 cator} Applicator ity of syringe-nee 00:00: 3 (three) [place] ([place] 00 times Medical INSULIN daily with Branch SYRINGE meals. Use U-500) 1/2 to mL 31 gauge administer x 15/64" U-500 Syrg insulin three times a day. Dx. E11.40 Insulin 2021-06 Yes Use 3 [facility] [place], 2-15 times ity of Disposable, 00:00: daily with [place] (BD INSULIN 00 insulin. Medi jada PEN NEEDLE Dx E11.65 Bran ch UF) 31 gauge x 5/16" Ndle insulin 2021-06 Yes [id number] 1{appli 1 Un [facility] U-500 2-15 cator} Applicator ity of syringe-nee 00:00: 3 (three) [place] ([place] 00 times Medical INSULIN daily with Branch SYRINGE meals. Use U-500) 1/2 to mL 31 gauge administer x 15/64" U-500 Syrg insulin three times a day. Dx. E11.40 Insulin 2021-06 Yes Use 3 [facility] [place], 2-15 times ity of Disposable, 00:00: daily with [place] (BD INSULIN 00 insulin. Medi jada PEN NEEDLE Dx E11.65 Bran ch UF) 31 gauge x 5/16" Ndle insulin 2021-06 Yes [id number] 1{appli 1 Un [facility] U-500 2-15 cator} Applicator ity of syringe-nee 00:00: 3 (three) [place] ([place] 00 times Medical INSULIN daily with Branch SYRINGE meals. Use U-500) 1/2 to mL 31 gauge administer x 15/64" U-500 Syrg insulin three times a day. Dx. E11.40 Insulin 2021-06 Yes Use 3 [facility] [place], 2-15 times ity of Disposable, 00:00: daily with [place] (BD INSULIN 00 insulin. Medi jada PEN NEEDLE Dx E11.65 Bran ch UF) 31 gauge x 5/16" Ndle insulin 2021-06 Yes [id number] 1{appli 1 Un [facility] U-500 2-15 cator} Applicator ity of syringe-nee 00:00: 3 (three) [place] ([place] 00 times Medical INSULIN daily with Branch SYRINGE meals. Use U-500) 1/2 to mL 31 gauge administer x 15/64" U-500 Syrg insulin three times a day. Dx. E11.40 Insulin 2021-06 Yes Use 3 [facility] [place], 2-15 times ity of Disposable, 00:00: daily with [place] (BD INSULIN 00 insulin. Medi jada PEN NEEDLE Dx E11.65 Bran UF) 31 gauge x 5/16" Ndle insulin 2021-06 Yes [id number] 1{appli 1 [facility] U-500 2-15 cator} Applicator ity of syringe-nee 00:00: 3 (three) [place] ([place] 00 times Medical INSULIN daily with Branch SYRINGE meals. Use U-500) 1/2 to mL 31 gauge administer x 15/64" U-500 Syrg insulin three times a day. Dx. E11.40 Insulin 2021-06 Yes Use 3 [facility] [place], 2-15 times ity of Disposable, 00:00: daily with [place] (BD INSULIN 00 insulin. Medi jada PEN NEEDLE Dx E11.65 Bran UF) 31 gauge x 5/16" Ndle insulin 2021-06 Yes [id number] 1{appli 1 [facility] U-500 2-15 cator} Applicator ity of syringe-nee 00:00: 3 (three) [place] (BD 00 times Medical INSULIN daily with Branch SYRINGE meals. Use U-500) 1/2 to mL 31 gauge administer x 15/64" U-500 Syrg insulin three times a day. Dx. E11.40 Insulin 2021-06 Yes Use 3 [facility] [place], 2-15 times ity of Disposable, 00:00: daily with [place] (BD INSULIN 00 insulin. Medi jada PEN NEEDLE Dx E11.65 Bran UF) 31 gauge x 5/16" Ndle insulin 2021-06 Yes [id number] 1{appli 1 [facility] U-500 2-15 cator} Applicator ity of syringe-nee 00:00: 3 (three) [place] (BD 00 times Medical INSULIN daily with Branch SYRINGE meals. Use U-500) 1/2 to mL 31 gauge administer x 15/64" U-500 Syrg insulin three times a day. Dx. E11.40 Insulin 2021-06 Yes Use 3 [facility] [place], 2-15 times ity of Disposable, 00:00: daily with [place] (BD INSULIN 00 insulin. Medi jada PEN NEEDLE Dx E11.65 Bran UF) 31 gauge x 5/16" Ndle insulin 2021-06 Yes [id number] 1{appli 1 [facility] U-500 2-15 cator} Applicator ity of syringe-nee 00:00: 3 (three) [place] ([place] 00 times Medical INSULIN daily with Branch SYRINGE meals. Use U-500) 1/2 to mL 31 gauge administer x 15/64" U-500 Syrg insulin three times a day. Dx. E11.40 Insulin 2021-06 Yes Use 3 [facility] [place], 2-15 times ity of Disposable, 00:00: daily with [place] (BD INSULIN 00 insulin. Medi jada PEN NEEDLE Dx E11.65 Bran ch UF) 31 gauge x 5/16" Ndle insulin 2021-06 Yes [id number] 1{appli 1 [facility] U-500 2-15 cator} Applicator ity of syringe-nee 00:00: 3 (three) [place] ([place] 00 times Medical INSULIN daily with Branch SYRINGE meals. Use U-500) 1/2 to mL 31 gauge administer x 15/64" U-500 Syrg insulin three times a day. Dx. E11.40 Insulin 2021-06 Yes Use 3 [facility] [place], 2-15 times ity of Disposable, 00:00: daily with [place] (BD INSULIN 00 insulin. Medi jada PEN NEEDLE Dx E11.65 Bran ch UF) 31 gauge x 5/16" Ndle insulin 2021-06 Yes [id number] 1{appli 1 [facility] U-500 2-15 cator} Applicator ity of syringe-nee 00:00: 3 (three) [place] ([place] 00 times Medical INSULIN daily with Branch SYRINGE meals. Use U-500) 1/2 to mL 31 gauge administer x 15/64" U-500 Syrg insulin three times a day. Dx. E11.40 Insulin 2021-06 Yes Use 3 [facility] [place], 2-15 times ity of Disposable, 00:00: daily with [place] (BD INSULIN 00 insulin. Medi jada PEN NEEDLE Dx E11.65 Bran ch UF) 31 gauge x 5/16" Ndle insulin 2021-06 Yes [id number] 1{appli 1 [facility] U-500 2-15 cator} Applicator ity of syringe-nee 00:00: 3 (three) [place] ([place] 00 times Medical INSULIN daily with Branch SYRINGE meals. Use U-500) 1/2 to mL 31 gauge administer x 15/64" U-500 Syrg insulin three times a day. Dx. E11.40 insulin 2021-06 Yes [id number] 1{appli 1 [facility] U-500 2-15 cator} Applicator ity of syringe-nee 00:00: 3 (three) [place] ([place] 00 times Medical INSULIN daily with Branch SYRINGE meals. Use U-500) 1/2 to mL 31 gauge administer x 15/64" U-500 Syrg insulin three times a day. Dx. E11.40 insulin 2021-06 Yes [id number] 1{appli 1 [facility] U-500 2-15 cator} Applicator ity of syringe-nee 00:00: 3 (three) [place] ([place] 00 times Medical INSULIN daily with Branch SYRINGE meals. Use U-500) 1/2 to mL 31 gauge administer x 15/64" U-500 Syrg insulin three times a day. Dx. E11.40 insulin 2021-06 Yes [id number] 1{appli 1 [facility] U-500 2-15 cator} Applicator ity of syringe-nee 00:00: 3 (three) [place] ([place] 00 times Medical INSULIN daily with Branch SYRINGE meals. Use U-500) 1/2 to mL 31 gauge administer x 15/64" U-500 Syrg insulin three times a day. Dx. E11.40 insulin 2021-06 Yes [id number] 1{appli 1 [facility] U-500 2-15 cator} Applicator ity of syringe-nee 00:00: 3 (three) [place] ([place] 00 times Medical INSULIN daily with Branch SYRINGE meals. Use U-500) 1/2 to mL 31 gauge administer x 15/64" U-500 Syrg insulin three times a day. Dx. E11.40 insulin 2021-06 Yes [id number] 1{appli 1 [facility] U-500 2-15 cator} Applicator ity of syringe-nee 00:00: 3 (three) [place] ([place] 00 times Medical INSULIN daily with Branch SYRINGE meals. Use U-500) 1/2 to mL 31 gauge administer x 15/64" U-500 Syrg insulin three times a day. Dx. E11.40 insulin 2021-06 Yes [id number] 1{appli 1 [facility] U-500 2-15 cator} Applicator ity of syringe-nee 00:00: 3 (three) [place] ([place] 00 times Medical INSULIN daily with Branch SYRINGE meals. Use U-500) 1/2 to mL 31 gauge administer x 15/64" U-500 Syrg insulin three times a day. Dx. E11.40 insulin 2021-06 Yes [id number] 1{appli 1 [facility] U-500 2-15 cator} Applicator ity of syringe-nee 00:00: 3 (three) [place] ([place] 00 times Medical INSULIN daily with Branch SYRINGE meals. Use U-500) 1/2 to mL 31 gauge administer x 15/64" U-500 Syrg insulin three times a day. Dx. E11.40 insulin 2021-06 Yes [id number] 1{appli 1 [facility] U-500 2-15 cator} Applicator ity of syringe-nee 00:00: 3 (three) [place] ([place] 00 times Medical INSULIN daily with Branch SYRINGE meals. Use U-500) 1/2 to mL 31 gauge administer x 15/64" U-500 Syrg insulin three times a day. Dx. E11.40 insulin 2021-06 Yes [id number] 1{appli 1 [facility] U-500 2-15 cator} Applicator ity of syringe-nee 00:00: 3 (three) [place] ([place] 00 times Medical INSULIN daily with Branch SYRINGE meals. Use U-500) 1/2 to mL 31 gauge administer x 15/64" U-500 Syrg insulin three times a day. Dx. E11.40 insulin 2021-06 Yes [id number] 1{appli 1 [facility] U-500 2-15 cator} Applicator ity of syringe-nee 00:00: 3 (three) [place] ([place] 00 times Medical INSULIN daily with Branch SYRINGE meals. Use U-500) 1/2 to mL 31 gauge administer x 15/64" U-500 Syrg insulin three times a day. Dx. E11.40 insulin 2021-06 Yes [id number] 1{appli 1 [facility] U-500 2-15 cator} Applicator ity of syringe-nee 00:00: 3 (three) [place] ([place] 00 times Medical INSULIN daily with Branch SYRINGE meals. Use U-500) 1/2 to mL 31 gauge administer x 15/64" U-500 Syrg insulin three times a day. Dx. E11.40 insulin 2021-06 Yes [id number] 1{appli 1 [facility] U-500 2-15 cator} Applicator ity of syringe-nee 00:00: 3 (three) [place] (BD 00 times Medical INSULIN daily with Branch SYRINGE meals. Use U-500) 1/2 to mL 31 gauge administer x 15/64" U-500 Syrg insulin three times a day. Dx. E11.40 insulin 2021-06 Yes [id number] 1{appli 1 [facility] U-500 2-15 cator} Applicator ity of syringe-nee 00:00: 3 (three) [place] ([place] 00 times Medical INSULIN daily with Branch SYRINGE meals. Use U-500) 1/2 to mL 31 gauge administer x 15/64" U-500 Syrg insulin three times a day. Dx. E11.40 insulin 2021-06 Yes [id number] 1{appli 1 [facility] U-500 2-15 cator} Applicator ity of syringe-nee 00:00: 3 (three) [place] ([place] 00 times Medical INSULIN daily with Branch SYRINGE meals. Use U-500) 1/2 to mL 31 gauge administer x 15/64" U-500 Syrg insulin three times a day. Dx. E11.40 insulin 2021-06 Yes [id number] 1{appli 1 [facility] U-500 2-15 cator} Applicator ity of syringe-nee 00:00: 3 (three) [place] (BD 00 times Medical INSULIN daily with Branch SYRINGE meals. Use U-500) 1/2 to mL 31 gauge administer x 15/64" U-500 Syrg insulin three times a day. Dx. E11.40 insulin 2021-06 Yes [id number] 1{appli 1 [facility] U-500 2-15 cator} Applicator ity of syringe-nee 00:00: 3 (three) [place] (BD 00 times Medical INSULIN daily with Branch SYRINGE meals. Use U-500) 1/2 to mL 31 gauge administer x 15/64" U-500 Syrg insulin three times a day. Dx. E11.40 insulin 2021-06 Yes [id number] 1{appli 1 [facility] U-500 2-15 cator} Applicator ity of syringe-nee 00:00: 3 (three) [place] ([place] 00 times Medical INSULIN daily with Branch SYRINGE meals. Use U-500) 1/2 to mL 31 gauge administer x 15/64" U-500 Syrg insulin three times a day. Dx. E11.40 insulin 2021-06 Yes [id number] 1{appli 1 [facility] U-500 2-15 cator} Applicator ity of syringe-nee 00:00: 3 (three) [place] ([place] 00 times Medical INSULIN daily with Branch SYRINGE meals. Use U-500) 1/2 to mL 31 gauge administer x 15/64" U-500 Syrg insulin three times a day. Dx. E11.40 insulin 2021-06 Yes [id number] 1{appli 1 [facility] U-500 2-15 cator} Applicator ity of syringe-nee 00:00: 3 (three) [place] ([place] 00 times Medical INSULIN daily with Branch SYRINGE meals. Use U-500) 1/2 to mL 31 gauge administer x 15/64" U-500 Syrg insulin three times a day. Dx. E11.40 insulin 2021-06 Yes [id number] 1{appli 1 [facility] U-500 2-15 cator} Applicator ity of syringe-nee 00:00: 3 (three) [place] ([place] 00 times Medical INSULIN daily with Branch SYRINGE meals. Use U-500) 1/2 to mL 31 gauge administer x 15/64" U-500 Syrg insulin three times a day. Dx. E11.40 insulin 2021-06 Yes [id number] 1{appli 1 [facility] U-500 2-15 cator} Applicator ity of syringe-nee 00:00: 3 (three) [place] ([place] 00 times Medical INSULIN daily with Branch SYRINGE meals. Use U-500) 1/2 to mL 31 gauge administer x 15/64" U-500 Syrg insulin three times a day. Dx. E11.40 insulin 2021-06 Yes [id number] 1{appli 1 [facility] U-500 2-15 cator} Applicator ity of syringe-nee 00:00: 3 (three) [place] ([place] 00 times Medical INSULIN daily with Branch SYRINGE meals. Use U-500) 1/2 to mL 31 gauge administer x 15/64" U-500 Syrg insulin three times a day. Dx. E11.40 insulin 2021-06 Yes [id number] 1{appli 1 [facility] U-500 2-15 cator} Applicator ity of syringe-nee 00:00: 3 (three) [place] ([place] 00 times Medical INSULIN daily with Branch SYRINGE meals. Use U-500) 1/2 to mL 31 gauge administer x 15/64" U-500 Syrg insulin three times a day. Dx. E11.40 insulin 2021-06 Yes [id number] 1{appli 1 Un beth U-500 2-15 cator} Applicator ity of syringe-nee 00:00: 3 (three) [place] (BD 00 times Medical INSULIN daily with Branch SYRINGE meals. Use U-500) 1/2 to mL 31 gauge administer x 15/64" U-500 Syrg insulin three times a day. Dx. E11.40 insulin 2021-06 Yes [id number] 1{appli 1 Un beth U-500 2-15 cator} Applicator ity of syringe-nee 00:00: 3 (three) [place] (BD 00 times Medical INSULIN daily with Branch SYRINGE meals. Use U-500) 1/2 to mL 31 gauge administer x 15/64" U-500 Syrg insulin three times a day. Dx. E11.40 insulin 2021-06 Yes [id number] 1{appli 1 Un beth U-500 2-15 cator} Applicator ity of syringe-nee 00:00: 3 (three) [place] ([place] 00 times Medical INSULIN daily with Branch SYRINGE meals. Use U-500) 1/2 to mL 31 gauge administer x 15/64" U-500 Syrg insulin three times a day. Dx. E11.40 insulin 2021-06 Yes [id number] 1{appli 1 Un beth U-500 2-15 cator} Applicator ity of syringe-nee 00:00: 3 (three) [place] (BD 00 times Medical INSULIN daily with Branch SYRINGE meals. Use U-500) 1/2 to mL 31 gauge administer x 15/64" U-500 Syrg insulin three times a day. Dx. E11.40 Insulin 2021-06- No Use 3 [facility] [place], 2-15 01-04 times ity of Disposable, 00:00: 00:00 daily with [place] (BD INSULIN 00 :00 insulin. Medi jada PEN NEEDLE Dx E11.65 Bran ch UF) 31 gauge x 5/16" Ndle insulin 2021-06- No [id number] Inject Un beth regular 2-15 12-20 90-100 ity of human 00:00: 00:00 units at [place] (HUMULIN R) 00 :00 breakfast, Me dical 500 unit/mL 100-110 Branc h injection units with lunch and 80-100 units at dinner Dx E11.40 GABAPENTIN 2021-06 Yes TAKE 1 Unive rs 100 mg 2-11 CAPSULE 3 ity of capsule 00:00: TIMES A [facility] Branch GABAPENTIN 2021-06 Yes TAKE 1 Unive rs 100 mg 2-11 CAPSULE 3 ity of capsule 00:00: TIMES A [facility] Branch GABAPENTIN 2021-06 Yes TAKE 1 Unive rs 100 mg 2-11 CAPSULE 3 ity of capsule 00:00: TIMES A [facility] GABAPENTIN 2021-06 Yes TAKE 1 Unive rs 100 mg 2-11 CAPSULE 3 ity of capsule 00:00: TIMES A [facility] GABAPENTIN 2021-06 Yes TAKE 1 Unive rs 100 mg 2-11 CAPSULE 3 ity of capsule 00:00: TIMES A [facility] Branch GABAPENTIN 2021-06 Yes TAKE 1 Unive rs 100 mg 2-11 CAPSULE 3 ity of capsule 00:00: TIMES A [facility] GABAPENTIN 2021-06 Yes TAKE 1 Unive rs 100 mg 2-11 CAPSULE 3 ity of capsule 00:00: TIMES A [facility] Branch GABAPENTIN 2021-06 Yes TAKE 1 Unive rs 100 mg [...] capsule 00:00: TIMES A Medical Branch GABAPENTIN 2022- Yes TAKE 1 Unive rs 100 mg 2-11 CAPSULE 3 ity of capsule 00:00: TIMES A Medical Branch GABAPENTIN 2022- Yes TAKE 1 Unive rs 100 mg 2-11 CAPSULE 3 ity of capsule 00:00: TIMES A Medical Branch GABAPENTIN 2022- Yes TAKE 1 Unive rs 100 mg 2-11 CAPSULE 3 ity of capsule 00:00: TIMES A Medical Branch GABAPENTIN 2- Yes TAKE 1 Unive rs 100 mg 2-11 CAPSULE 3 ity of capsule 00:00: TIMES A [facility] Branch GABAPENTIN 2- Yes TAKE 1 Unive rs 100 mg 2-11 CAPSULE 3 ity of capsule 00:00: TIMES A Medical Branch GABAPENTIN 2- Yes TAKE 1 Unive rs 100 mg 2-11 CAPSULE 3 ity of capsule 00:00: TIMES A Medical Branch GABAPENTIN 2- Yes TAKE 1 Unive rs 100 mg 2-11 CAPSULE 3 ity of capsule 00:00: TIMES A Medical Branch GABAPENTIN 2- Yes TAKE 1 Unive rs 100 mg 2-11 CAPSULE 3 ity of capsule 00:00: TIMES A Medical Branch GABAPENTIN 2- Yes TAKE 1 Unive rs 100 mg 2-11 CAPSULE 3 ity of capsule 00:00: TIMES A Medical Branch GABAPENTIN 2-1 Yes TAKE 1 Unive rs 100 mg 2-11 CAPSULE 3 ity of capsule 00:00: TIMES A Medical Branch GABAPENTIN 2- Yes TAKE 1 Unive rs 100 mg 2-11 CAPSULE 3 ity of capsule 00:00: TIMES A Medical Branch GABAPENTIN 2-1 3- No TAKE 1 Univ ers 100 mg 2-11 05-18 CAPSULE 3 ity of capsule 00:00: 00:00 TIMES A Medical Branch simvastatin 2022- Yes [id number] 20mg Take 1 [facility] 20 mg 06-20 tablet by ity of tablet 00:00: mouth at bedtime. Medical Branch insulin 2021- Yes [id number] 1{appli 1 Un beth U-500 1- cator} Applicator ity of syringe-nee 00:00: 3 (three) [place] ([place] 00 times Medical INSULIN daily with Branch SYRINGE meals. Use U-500) 1/2 to mL 31 gauge administer x 15/64" U-500 Syrg insulin three times a day. Dx. E11.40 lisinopriL- 2021-06 Yes [id number] TAKE 1 [facility] hydrochloro 1-01 TABLET ity of thiazide 00:00: TWICE A [place] 20-12.5 mg 00 DAY Medical per tablet Branch insulin 2021-06 Yes [id number] Inject Uni vers regular 1-01 90-100 ity of human 00:00: units at [place] (HUMULIN R) 00 breakfast, Me dical 500 unit/mL 100-110 Branc h injection units with lunch and 80-100 units at dinner Dx E11.40 simvastatin 2021-06 Yes [id number] 20mg Take 1 [facility] 20 mg 1-01 tablet by ity of tablet 00:00: mouth at [place] 00 bedtime. Medical Branch insulin 2021-06 Yes [id number] 1{appli 1 Un beth U-500 1- cator} Applicator ity of syringe-nee 00:00: 3 (three) [place] (BD 00 times Medical INSULIN daily with Branch SYRINGE meals. Use U-500) 1/2 to mL 31 gauge administer x 15/64" U-500 Syrg insulin three times a day. Dx. E11.40 lisinopriL- 2021-06 Yes [id number] TAKE 1 [facility] hydrochloro 1-01 TABLET ity of thiazide 00:00: TWICE A [place] 20-12.5 mg 00 DAY Medical per tablet Branch insulin 2021-06 Yes [id number] Inject Uni vers regular 1-01 90-100 ity of human 00:00: units at [place] (HUMULIN R) 00 breakfast, Me dical 500 unit/mL 100-110 Branc h injection units with lunch and 80-100 units at dinner Dx E11.40 simvastatin 2021-06 Yes [id number] 20mg Take 1 [facility] 20 mg 1-01 tablet by ity of tablet 00:00: mouth at [place] 00 bedtime. Medical Branch insulin 2021-06 Yes [id number] 1{appli 1 Un beth U-500 1-01 cator} Applicator ity of syringe-nee 00:00: 3 (three) [place] (BD 00 times Medical INSULIN daily with Branch SYRINGE meals. Use U-500) 1/2 to mL 31 gauge administer x 15/64" U-500 Syrg insulin three times a day. Dx. E11.40 lisinopriL- 2021-06 Yes [id number] TAKE 1 [facility] hydrochloro 1-01 TABLET ity of thiazide 00:00: TWICE A [place] 20-12.5 mg 00 DAY Medical per tablet Branch insulin 2021-06 Yes [id number] Inject Uni vers regular 1-01 90-100 ity of human 00:00: units at [place] (HUMULIN R) 00 breakfast, Me dical 500 unit/mL 100-110 Branc h injection units with lunch and 80-100 units at dinner Dx E11.40 simvastatin 2021-06 Yes [id number] 20mg Take 1 [facility] 20 mg 1-01 tablet by ity of tablet 00:00: mouth at [place] 00 bedtime. Medical Branch insulin 2021-06 Yes [id number] 1{appli 1 Un beth U-500 1- cator} Applicator ity of syringe-nee 00:00: 3 (three) [place] (BD 00 times Medical INSULIN daily with Branch SYRINGE meals. Use U-500) 1/2 to mL 31 gauge administer x 15/64" U-500 Syrg insulin three times a day. Dx. E11.40 lisinopriL- 2021-06 Yes [id number] TAKE 1 [facility] hydrochloro 1-01 TABLET ity of thiazide 00:00: TWICE A [place] 20-12.5 mg 00 DAY Medical per tablet Branch insulin 2021-06 Yes [id number] Inject Uni vers regular 1-01 90-100 ity of human 00:00: units at [place] (HUMULIN R) 00 breakfast, Me dical 500 unit/mL 100-110 Branc h injection units with lunch and 80-100 units at dinner Dx E11.40 simvastatin 2021-06 Yes [id number] 20mg Take 1 [facility] 20 mg 1-01 tablet by ity of tablet 00:00: mouth at [place] 00 bedtime. Medical Branch insulin 2021-06 Yes [id number] 1{appli 1 Un beth U-500 1-01 cator} Applicator ity of syringe-nee 00:00: 3 (three) [place] (BD 00 times Medical INSULIN daily with Branch SYRINGE meals. Use U-500) 1/2 to mL 31 gauge administer x 15/64" U-500 Syrg insulin three times a day. Dx. E11.40 lisinopriL- 2021-06 Yes [id number] TAKE 1 [facility] hydrochloro 1-01 TABLET ity of thiazide 00:00: TWICE A [place] 20-12.5 mg 00 DAY Medical per tablet Branch insulin 2021-06 Yes [id number] Inject Uni vers regular 1-01 90-100 ity of human 00:00: units at [place] (HUMULIN R) 00 breakfast, Me dical 500 unit/mL 100-110 Branc h injection units with lunch and 80-100 units at dinner Dx E11.40 simvastatin 2021-06 Yes [id number] 20mg Take 1 [facility] 20 mg 1-01 tablet by ity of tablet 00:00: mouth at [place] 00 bedtime. Medical Branch insulin 2021-06 Yes [id number] 1{appli 1 Un beth U-500 1- cator} Applicator ity of syringe-nee 00:00: 3 (three) [place] ([place] 00 times Medical INSULIN daily with Branch SYRINGE meals. Use U-500) 1/2 to mL 31 gauge administer x 15/64" U-500 Syrg insulin three times a day. Dx. E11.40 lisinopriL- 2021-06 Yes [id number] TAKE 1 [facility] hydrochloro 1-01 TABLET ity of thiazide 00:00: TWICE A [place] 20-12.5 mg 00 DAY Medical per tablet Branch insulin 2021-06 Yes [id number] Inject Uni vers regular 1-01 90-100 ity of human 00:00: units at [place] (HUMULIN R) 00 breakfast, Me dical 500 unit/mL 100-110 Branc h injection units with lunch and 80-100 units at dinner Dx E11.40 simvastatin 2021-06 Yes [id number] 20mg Take 1 [facility] 20 mg 1-01 tablet by ity of tablet 00:00: mouth at [place] 00 bedtime. Medical Branch insulin 2021-06 Yes [id number] 1{appli 1 Un beth U-500 1-01 cator} Applicator ity of syringe-nee 00:00: 3 (three) [place] (BD 00 times Medical INSULIN daily with Branch SYRINGE meals. Use U-500) 1/2 to mL 31 gauge administer x 15/64" U-500 Syrg insulin three times a day. Dx. E11.40 lisinopriL- 2021-06 Yes [id number] TAKE 1 [facility] hydrochloro 1-01 TABLET ity of thiazide 00:00: TWICE A [place] 20-12.5 mg 00 DAY Medical per tablet Branch insulin 2021-06 Yes [id number] Inject Uni vers regular 1-01 90-100 ity of human 00:00: units at [place] (HUMULIN R) 00 breakfast, Me dical 500 unit/mL 100-110 Branc h injection units with lunch and 80-100 units at dinner Dx E11.40 simvastatin 2021-06 Yes [id number] 20mg Take 1 [facility] 20 mg 1-01 tablet by ity of tablet 00:00: mouth at [place] 00 bedtime. Medical Branch insulin 2021-06 Yes [id number] 1{appli 1 Un beth U-500 1- cator} Applicator ity of syringe-nee 00:00: 3 (three) [place] (BD 00 times Medical INSULIN daily with Branch SYRINGE meals. Use U-500) 1/2 to mL 31 gauge administer x 15/64" U-500 Syrg insulin three times a day. Dx. E11.40 lisinopriL- 2021-06 Yes [id number] TAKE 1 [facility] hydrochloro 1-01 TABLET ity of thiazide 00:00: TWICE A [place] 20-12.5 mg 00 DAY Medical per tablet Branch insulin 2021-06 Yes [id number] Inject Uni vers regular 1- 90-100 ity of human 00:00: units at [place] (HUMULIN R) 00 breakfast, Me dical 500 unit/mL 100-110 Branc h injection units with lunch and 80-100 units at dinner Dx E11.40 simvastatin 2021-06 Yes [id number] 20mg Take 1 [facility] 20 mg 1-01 tablet by ity of tablet 00:00: mouth at [place] 00 bedtime. Medical Branch lisinopriL- 2021-06 Yes [id number] TAKE 1 [facility] hydrochloro 1-01 TABLET ity of thiazide 00:00: TWICE A [place] 20-12.5 mg 00 DAY Medical per tablet Branch simvastatin 2021-06 Yes [id number] 20mg Take 1 [facility] 20 mg 1-01 tablet by ity of tablet 00:00: mouth at [place] 00 bedtime. Medical Branch lisinopriL- 2021-06 Yes [id number] TAKE 1 [facility] hydrochloro 1-01 TABLET ity of thiazide 00:00: TWICE A [place] 20-12.5 mg 00 DAY Medical per tablet Branch simvastatin 2021-06 Yes [id number] 20mg Take 1 [facility] 20 mg 1-01 tablet by ity of tablet 00:00: mouth at [place] 00 bedtime. Medical Branch lisinopriL- 2021-06 Yes [id number] TAKE 1 [facility] hydrochloro 1-01 TABLET ity of thiazide 00:00: TWICE A [place] 20-12.5 mg 00 DAY Medical per tablet Branch simvastatin 2021-06 Yes [id number] 20mg Take 1 [facility] 20 mg 1-01 tablet by ity of tablet 00:00: mouth at [place] 00 bedtime. Medical Branch lisinopriL- 2021-06 Yes [id number] TAKE 1 [facility] hydrochloro 1-01 TABLET ity of thiazide 00:00: TWICE A [place] 20-12.5 mg 00 DAY Medical per tablet Branch simvastatin 2021-06 Yes [id number] 20mg Take 1 [facility] 20 mg 1-01 tablet by ity of tablet 00:00: mouth at [place] 00 bedtime. Medical Branch lisinopriL- 2021-06 Yes [id number] TAKE 1 [facility] hydrochloro 1-01 TABLET ity of thiazide 00:00: TWICE A [place] 20-12.5 mg 00 DAY Medical per tablet Branch simvastatin 2021-06 Yes [id number] 20mg Take 1 [facility] 20 mg 1-01 tablet by ity of tablet 00:00: mouth at [place] 00 bedtime. Medical Branch lisinopriL- 2021-06 Yes [id number] TAKE 1 [facility] hydrochloro 1-01 TABLET ity of thiazide 00:00: TWICE A [place] 20-12.5 mg 00 DAY Medical per tablet Branch simvastatin 2021-06 Yes [id number] 20mg Take 1 [facility] 20 mg 1-01 tablet by ity of tablet 00:00: mouth at [place] 00 bedtime. Medical Branch lisinopriL- 2021-06 Yes [id number] TAKE 1 [facility] hydrochloro 1-01 TABLET ity of thiazide 00:00: TWICE A [place] 20-12.5 mg 00 DAY Medical per tablet Branch simvastatin 2021-06 Yes [id number] 20mg Take 1 [facility] 20 mg 1-01 tablet by ity of tablet 00:00: mouth at [place] 00 bedtime. Medical Branch lisinopriL- 2021-06 Yes [id number] TAKE 1 [facility] hydrochloro 1-01 TABLET ity of thiazide 00:00: TWICE A [place] 20-12.5 mg 00 DAY Medical per tablet Branch simvastatin 2021-06 Yes [id number] 20mg Take 1 [facility] 20 mg 1-01 tablet by ity of tablet 00:00: mouth at [place] 00 bedtime. Medical Branch lisinopriL- 2021-06 Yes [id number] TAKE 1 [facility] hydrochloro 1-01 TABLET ity of thiazide 00:00: TWICE A [place] 20-12.5 mg 00 DAY Medical per tablet Branch simvastatin 2021-06 Yes [id number] 20mg Take 1 [facility] 20 mg 1-01 tablet by ity of tablet 00:00: mouth at [place] 00 bedtime. Medical Branch lisinopriL- 2021-06 Yes [id number] TAKE 1 [facility] hydrochloro 1-01 TABLET ity of thiazide 00:00: TWICE A [place] 20-12.5 mg 00 DAY Medical per tablet Branch simvastatin 2021-06 Yes [id number] 20mg Take 1 [facility] 20 mg 1-01 tablet by ity of tablet 00:00: mouth at [place] 00 bedtime. Medical Branch lisinopriL- 2021-06 Yes [id number] TAKE 1 [facility] hydrochloro 1-01 TABLET ity of thiazide 00:00: TWICE A [place] 20-12.5 mg 00 DAY Medical per tablet Branch simvastatin 2021-06 Yes [id number] 20mg Take 1 [facility] 20 mg 1-01 tablet by ity of tablet 00:00: mouth at [place] 00 bedtime. Medical Branch lisinopriL- 2021-06 Yes [id number] TAKE 1 [facility] hydrochloro 1-01 TABLET ity of thiazide 00:00: TWICE A [place] 20-12.5 mg 00 DAY Medical per tablet Branch simvastatin 2021-06 Yes [id number] 20mg Take 1 [facility] 20 mg 1-01 tablet by ity of tablet 00:00: mouth at [place] 00 bedtime. Medical Branch lisinopriL- 2021-06 Yes [id number] TAKE 1 [facility] hydrochloro 1-01 TABLET ity of thiazide 00:00: TWICE A [place] 20-12.5 mg 00 DAY Medical per tablet Branch simvastatin 2021-06 Yes [id number] 20mg Take 1 [facility] 20 mg 1-01 tablet by ity of tablet 00:00: mouth at [place] [address] bedtime. Medical Branch lisinopriL- 2021-06 Yes [id number] TAKE 1 [facility] hydrochloro 1-01 TABLET ity of thiazide 00:00: TWICE A [place] 20-12.5 mg 00 DAY Medical per tablet Branch simvastatin 2021-06 Yes [id number] 20mg Take 1 [facility] 20 mg 1-01 tablet by ity of tablet 00:00: mouth at [place] [address] bedtime. Medical Branch simvastatin 2021-06 Yes [id number] 20mg Take 1 [facility] 20 mg 1-01 tablet by ity of tablet 00:00: mouth at [place] [address] bedtime. Medical Branch simvastatin 2021-06 Yes [id number] 20mg Take 1 [facility] 20 mg 1-01 tablet by ity of tablet 00:00: mouth at [place] [address] bedtime. Medical Branch simvastatin 2021-06 Yes [id number] 20mg Take 1 [facility] 20 mg 1-01 tablet by ity of tablet 00:00: mouth at [place] [address] bedtime. Medical Branch simvastatin 2021-06 Yes [id number] 20mg Take 1 [facility] 20 mg 1-01 tablet by ity of tablet 00:00: mouth at [place] [address] bedtime. [facility] Branch simvastatin 2021-06 Yes [id number] 20mg Take 1 [facility] 20 mg 1-01 tablet by ity of tablet 00:00: mouth at [place] [address] bedtime. Medical Branch simvastatin 2021-06 Yes [id number] 20mg Take 1 [facility] 20 mg 1-01 tablet by ity of tablet 00:00: mouth at [place] [address] bedtime. Medical Branch simvastatin 2021-06 Yes [id number] 20mg Take 1 [facility] 20 mg 1-01 tablet by ity of tablet 00:00: mouth at [place] [address] bedtime. Medical Branch simvastatin 2021-06 Yes [id number] 20mg Take 1 [facility] 20 mg 1-01 tablet by ity of tablet 00:00: mouth at [place] [address] bedtime. [facility] simvastatin 2021-06 Yes [id number] 20mg Take 1 [facility] 20 mg 1-01 tablet by ity of tablet 00:00: mouth at [place] [address] bedtime. [facility] Branch simvastatin 2021-06 Yes [id number] 20mg Take 1 [facility] 20 mg 1-01 tablet by ity of tablet 00:00: mouth at [place] [address] bedtime. [facility] Branch simvastatin 2021-06 Yes [id number] 20mg Take 1 [facility] 20 mg 1-01 tablet by ity of tablet 00:00: mouth at [place] [address] bedtime. [facility] Branch simvastatin 2021-06 Yes [id number] 20mg Take 1 [facility] 20 mg 1-01 tablet by ity of tablet 00:00: mouth at [place] [address] bedtime. [facility] Branch simvastatin 2021-06 Yes [id number] 20mg Take 1 [facility] 20 mg 1-01 tablet by ity of tablet 00:00: mouth at [place] [address] bedtime. [facility] Branch simvastatin 2021-06 Yes [id number] 20mg Take 1 [facility] 20 mg 1-01 tablet by ity of tablet 00:00: mouth at [place] [address] bedtime. [facility] Branch simvastatin 2021-06 Yes [id number] 20mg Take 1 [facility] 20 mg 1-01 tablet by ity of tablet 00:00: mouth at [place] [address] bedtime. [facility] Branch simvastatin 2021-06 Yes [id number] 20mg Take 1 [facility] 20 mg 1-01 tablet by ity of tablet 00:00: mouth at [place] [address] bedtime. [facility] Branch simvastatin 2021-06 Yes [id number] 20mg Take 1 [facility] 20 mg 1-01 tablet by ity of tablet 00:00: mouth at [place] [address] bedtime. [facility] Branch simvastatin 2021-06 Yes [id number] 20mg Take 1 [facility] 20 mg 1-01 tablet by ity of tablet 00:00: mouth at [place] [address] bedtime. [facility] Branch simvastatin 2021-06 Yes [id number] 20mg Take 1 [facility] 20 mg 1-01 tablet by ity of tablet 00:00: mouth at [place] [address] bedtime. [facility] Branch simvastatin 2021-06 Yes [id number] 20mg Take 1 [facility] 20 mg 1-01 tablet by ity of tablet 00:00: mouth at [place] [address] bedtime. [facility] Branch simvastatin 2021-06 Yes [id number] 20mg Take 1 [facility] 20 mg 1-01 tablet by ity of tablet 00:00: mouth at [place] [address] bedtime. [facility] Branch simvastatin 2021-06 Yes [id number] 20mg Take 1 [facility] 20 mg 1-01 tablet by ity of tablet 00:00: mouth at [place] [address] bedtime. [facility] Branch simvastatin 2021-06 Yes [id number] 20mg Take 1 [facility] 20 mg 06-20 tablet by ity of tablet 00:00: mouth at [place] 00 bedtime. Medical Branch lisinopriL- 2021-06- No [id number] TAKE 1 [facility] hydrochloro 06-20 TABLET ity o f thiazide 00:00: 00:00 TWICE A [place] 20-12.5 mg 00 :00 DAY Medical per tablet Branch insulin 2021-06- No [id number] 1{appli 1 U nivers U-500 06-20 cator} Applicator ity o f syringe-nee 00:00: 00:00 3 (three) [place] dle (BD 00 :00 times Medical INSULIN daily with Branch SYRINGE meals. Use U-500) 1/2 to mL 31 gauge administer x 15/64" U-500 Syrg insulin three times a day. Dx. E11.40 insulin 2021-06- No [id number] Inject Un beth regular 06-20 90-100 ity of human 00:00: 00:00 units at [place] (HUMULIN R) 00 :00 breakfast, Me dical 500 unit/mL 100-110 Branc h injection units with lunch and 80-100 units at dinner Dx E11.40 METFORMIN 2021-06 Yes TAKE 1 Univer s 1,000 mg 0-29 TABLET ity of tablet 00:00: TWICE [place] [address] DAILY WITH Medical MEALS Branch METFORMIN 2021-06 [...] 00 DAILY WITH Medical MEALS Branch METFORMIN 2-1 Yes TAKE 1 Univer s 1,000 mg 0-29 TABLET ity of tablet 00:00: TWICE 00 DAILY WITH Medical MEALS Branch METFORMIN 2-1 Yes TAKE 1 Univer s 1,000 mg 0-29 TABLET ity of tablet 00:00: TWICE 00 DAILY WITH Medical MEALS Branch METFORMIN 2022-1 Yes TAKE 1 Univer s 1,000 mg 0-29 TABLET ity of tablet 00:00: TWICE 00 DAILY WITH Medical MEALS Branch METFORMIN 2-1 Yes TAKE 1 Univer s 1,000 mg 0-29 TABLET ity of tablet 00:00: TWICE 00 DAILY WITH Medical MEALS Branch METFORMIN 2-1 Yes TAKE 1 Univer s 1,000 mg 0-29 TABLET ity of tablet 00:00: TWICE 00 DAILY Medical WITH MEALS Branch METFORMIN 2022-1 Yes TAKE 1 [...] 00 DAILY WITH Medical MEALS Branch METFORMIN 2-1 Yes TAKE 1 Univer s 1,000 mg 0-29 TABLET ity of tablet 00:00: TWICE 00 DAILY WITH Medical MEALS Branch METFORMIN 2-1 Yes TAKE 1 Univer s 1,000 mg 0-29 TABLET ity of tablet 00:00: TWICE 00 DAILY WITH Medical MEALS Branch METFORMIN 2-1 Yes TAKE 1 Univer s 1,000 mg 0-29 TABLET ity of tablet 00:00: TWICE 00 DAILY WITH Medical MEALS Branch METFORMIN 2- Yes TAKE 1 Univer s 1,000 mg 0-29 TABLET ity of tablet 00:00: TWICE 00 DAILY WITH Medical MEALS Branch METFORMIN 2-1 Yes TAKE 1 Univer s 1,000 mg 0-29 TABLET ity of tablet 00:00: TWICE 00 DAILY WITH Medical MEALS Branch METFORMIN 2-1 Yes TAKE 1 Univer s 1,000 mg 0-29 TABLET ity of tablet 00:00: TWICE 00 DAILY WITH Medical MEALS Branch METFORMIN 2-1 Yes TAKE 1 Univer s 1,000 mg 0-29 TABLET ity of tablet 00:00: TWICE 00 DAILY WITH Medical MEALS Branch METFORMIN 2-1 Yes TAKE 1 Univer s 1,000 mg 0-29 TABLET ity of tablet 00:00: TWICE 00 DAILY WITH Medical MEALS Branch METFORMIN 2-1 Yes TAKE 1 Univer s 1,000 mg 0-29 TABLET ity of tablet 00:00: TWICE 00 DAILY WITH Medical MEALS Branch METFORMIN 2-1 Yes TAKE 1 Univer s 1,000 mg 0-29 TABLET ity of tablet 00:00: TWICE 00 DAILY WITH Medical MEALS Branch METFORMIN 2-1 Yes TAKE 1 Univer s 1,000 mg 0-29 TABLET ity of tablet 00:00: TWICE 00 DAILY WITH Medical MEALS Branch METFORMIN 2-1 Yes TAKE 1 Univer s 1,000 mg [...] 00 DAILY WITH Medical MEALS Branch METFORMIN 2021-06- No TAKE 1 Unive rs 1,000 mg 0-29 04-02 TABLET ity of tablet 00:00: 00:00 TWICE [place] 00 :00 DAILY WITH Medical MEALS Branch VASCEPA 1 2021-06 Yes TAKE ONE Univ ers gram 0-13 CAPSULE BY ity of capsule 00:00: MOUTH [place] 00 TWICE Medical DAILY WITH Branch MORNING AND EVENING MEALS VASCEPA 1 2021-06 Yes TAKE ONE Univ ers gram 0-13 CAPSULE BY ity of capsule 00:00: MOUTH [place] 00 TWICE Medical DAILY WITH Branch MORNING AND EVENING MEALS VASCEPA 1 2021-06 Yes TAKE ONE Univ ers gram 0-13 CAPSULE BY ity of capsule 00:00: MOUTH [place] 00 TWICE Medical DAILY WITH Branch MORNING AND EVENING MEALS VASCEPA 1 2021-06 Yes TAKE ONE Univ ers gram 0-13 CAPSULE BY ity of capsule 00:00: MOUTH [place] 00 TWICE Medical DAILY WITH Branch MORNING AND EVENING MEALS VASCEPA 1 2021-06 Yes TAKE ONE Univ ers gram 0-13 CAPSULE BY ity of capsule 00:00: MOUTH [place] 00 TWICE Medical DAILY WITH Branch MORNING [...] WITH Branch MORNING AND EVENING MEALS VASCEPA 2021-06 Yes TAKE ONE Univ ers gram 0-13 CAPSULE BY ity of capsule 00:00: MOUTH [place] 00 TWICE Medical DAILY WITH Branch MORNING AND EVENING MEALS VASCEPA 1 2021-06 Yes TAKE ONE Univ ers gram 0-13 CAPSULE BY ity of capsule 00:00: MOUTH [place] 00 TWICE Medical DAILY WITH Branch MORNING [...] CAPSULE BY ity of capsule 00:00: MOUTH TWICE Medical DAILY WITH Branch MORNING AND EVENING MEALS VASCEPA 1 2021-06 Yes TAKE ONE Univ ers gram 0-13 CAPSULE BY ity of capsule 00:00: MOUTH TWICE Medical DAILY WITH Branch MORNING AND EVENING MEALS VASCEPA 1 2021-06 Yes TAKE ONE Univ ers gram 0-13 CAPSULE BY ity of capsule 00:00: MOUTH TWICE Medical DAILY WITH Branch MORNING AND EVENING MEALS VASCEPA 1 2021-06 Yes TAKE ONE Univ ers gram 0-13 CAPSULE BY ity of capsule 00:00: MOUTH TWICE Medical DAILY WITH Branch MORNING AND [...] MORNING AND EVENING MEALS FARXIGA 10 Yes [id number] TAKE 1 U nivers mg tablet 9-25 TABLET BY ity o f 00:00: MOUTH [place] 00 EVERY DAY Medical Branch dapaglifloz Yes [id number] 10mg Take 1 [facility] in 9-25 tablet by ity of (FARXIGA) 00:00: [place] 10 mg 00 the Medical tablet morning. Branch dapaglifloz Yes [id number] 10mg Take 1 [facility] in 9-25 tablet by ity of () 00:00: [place] 10 mg 00 the Medical tablet morning. Branch dapaglifloz 2022-0 Yes [id number] 10mg Take 1 [facility] in 9-25 tablet by ity of () 00:00: mouth [place] 10 mg 00 the Medical tablet morning. Branch dapaglifloz 2022-0 Yes [id number] 10mg Take 1 [facility] in 9-25 tablet by ity of () 00:00: [place] 10 mg 00 the Medical tablet morning. Branch dapaglifloz 2022-0 Yes [id number] 10mg Take 1 [facility] in 9-25 tablet by ity of () 00:00: mouth [place] 10 mg 00 the Medical tablet morning. Branch dapaglifloz 2022-0 Yes [id number] 10mg Take 1 [facility] in 9-25 tablet by ity of () 00:00: [place] mg 00 the Medical tablet morning. Branch dapaglifloz 2022-0 Yes [id number] 10mg Take 1 [facility] in 9-25 tablet by ity of () 00:00: [place] 10 mg 00 the Medical tablet morning. Branch dapaglifloz 2022-0 Yes [id number] 10mg Take 1 [facility] in 9-25 tablet by ity of () 00:00: [place] mg 00 the Medical tablet morning. Branch dapaglifloz 2022-0 Yes [id number] 10mg Take 1 [facility] in 9-25 tablet by ity of () 00:00: [place] 10 mg 00 the Medical tablet morning. Branch dapaglifloz 2022-0 Yes [id number] 10mg Take 1 [facility] in 9-25 tablet by ity of () 00:00: [place] mg 00 the Medical tablet morning. Branch dapaglifloz 2022-0 Yes [id number] 10mg Take 1 [facility] in 9-25 tablet by ity of () 00:00: [place] 10 mg 00 the Medical tablet morning. Branch dapaglifloz 2022-0 Yes [id number] 10mg Take 1 [facility] in 9-25 tablet by ity of () 00:[place]: [place] 10 mg 00 the Medical tablet morning. Branch dapaglifloz 2022-0 Yes [id number] 10mg Take 1 [facility] in 9-25 tablet by [facility] of () 00:00: [place] 10 mg 00 the Medical tablet morning. Branch dapaglifloz 2022-0 Yes [id number] 10mg Take 1 [facility] in 9-25 tablet by [facility]y of () 00:00: [place] 10 mg 00 the Medical tablet morning. Branch dapaglifloz 2022-0 Yes [id number] 10mg Take 1 [facility] in 9-25 tablet by [facility]y of () 00:00: mouth [place] 10 mg 00 the Medical tablet morning. Branch dapaglifloz 2022-0 Yes [id number] 10mg Take 1 [facility] in 9-25 tablet by [facility] of () 00:00: mouth [place] 10 mg 00 the Medical tablet morning. Branch dapaglifloz 2022-0 Yes [id number] 10mg Take 1 [facility] in 9-25 tablet by [facility] of () 00:00: [place] 10 mg 00 the Medical tablet morning. Branch dapaglifloz 2022-0 Yes [id number] 10mg Take 1 [facility] in 9-25 tablet by [facility]y of () 00:00: mouth [place] 10 mg 00 the Medical tablet morning. Branch dapaglifloz 2022-0 Yes [id number] 10mg Take 1 [facility] in 9-25 tablet by [facility]y of () 00:00: mouth [place] 10 mg 00 the Medical tablet morning. Branch dapaglifloz 2022-0 Yes [id number] 10mg Take 1 [facility] in 9-25 tablet by [facility]y of () 00:00: mouth [place] 10 mg 00 the Medical tablet morning. Branch dapaglifloz 2022-0 Yes [id number] 10mg Take 1 [facility] in 9-25 tablet by [facility]y of () 00:00: mouth [place] 10 mg 00 the Medical tablet morning. Branch dapaglifloz 2022-0 Yes [id number] 10mg Take 1 [facility] in 9-25 tablet by [facility]y of () 00:00: mouth [place] 10 mg 00 the Medical tablet morning. Branch dapaglifloz 2022-0 Yes [id number] 10mg Take 1 [facility] in 9-25 tablet by [facility]y of () 00:00: mouth [place] 10 mg 00 the Medical tablet morning. Branch dapaglifloz 2022-0 Yes [id number] 10mg Take 1 [facility] in 9-25 tablet by [facility]y of () 00:00: mouth [place] 10 mg 00 the Medical tablet morning. Branch dapaglifloz 2-0 Yes [id number] 10mg Take 1 [facility] in 9-25 tablet by [facility]y of () 00:00: mouth [place] 10 mg 00 the Medical tablet morning. Branch dapaglifloz 2-0 Yes [id number] 10mg Take 1 [facility] in 9-25 tablet by [facility]y of () 00:00: mouth [place] 10 mg 00 the Medical tablet morning. Branch dapaglifloz 2-0 Yes [id number] 10mg Take 1 [facility] in 9-25 tablet by [facility] of () 00:00: mouth [place] 10 mg 00 the Medical tablet morning. Branch dapaglifloz 2021-0 2023- No [id number] 10mg Take 1 [facility] in 9-25 - tablet by ity of () 00:00: 00:00 mouth in [place] 10 mg 00 :00 the Medical tablet morning. Branch XIGA 10 2021-0 2- No [id number] TAKE 1 [facility] mg tablet 03-14-25 TABLET BY ity of 00:00: 00:00 MOUTH [place] 00 :00 EVERY DAY Medical Branch fenofibrate 2-0 Yes Univer s [...] 54 mg 9-17 ity of tablet 00:00: [place] [address] Medical Branch fenofibrate 2022-0 Yes Univer s 54 mg 9-17 ity of tablet 00:00: [place] [address] Medical Branch fenofibrate 2022-0 Yes Univer s 54 mg 9-17 ity of tablet 00:00: [place] 00 Medical Branch fenofibrate 2022-0 Yes Univer s 54 mg 9-17 ity of tablet 00:00: [place] 00 Medical Branch fenofibrate 2022-0 Yes Univer s 54 mg 9-17 ity of tablet 00:00: [place] [address] Medical Branch fenofibrate 2022-0 Yes Univer s 54 mg 9-17 ity of tablet 00:00: [place] 00 Medical Branch fenofibrate 2022-0 Yes Univer s 54 mg 9-17 ity of tablet 00:00: [place] [address] Medical Branch fenofibrate 2022-0 Yes Univer s [...] 54 mg 9-17 ity of tablet 00:00: [place] [address] Medical Branch fenofibrate 2022-0 Yes Univer s 54 mg 9-17 ity of tablet 00:00: [place] [address] Medical Branch fenofibrate 2022-0 Yes Univer s 54 mg 9-17 ity of tablet 00:00: [place] 00 Medical Branch fenofibrate 2022-0 Yes Univer s 54 mg 9-17 ity of tablet 00:00: [place] [address] Medical Branch fenofibrate 2022-0 Yes Univer s 54 mg 9-17 ity of tablet 00:00: [place] [address] Medical Branch fenofibrate 2022-0 Yes Univer s 54 mg 9-17 ity of tablet 00:00: [place] [address] Medical Branch fenofibrate 2022-0 Yes Univer s [...] 54 mg 9-17 ity of tablet 00:00: [place] [address] Medical Branch fenofibrate 2022-0 Yes Univer s 54 mg 9-17 ity of tablet 00:00: [place] 00 Medical Branch fenofibrate 2022-0 Yes Univer s 54 mg 9-17 ity of tablet 00:00: [place] 00 Medical Branch fenofibrate 2022-0 Yes Univer s 54 mg 9-17 ity of tablet 00:00: [place] 00 Medical Branch fenofibrate 2022-0 Yes Univer s 54 mg 9-17 ity of tablet 00:00: [place] 00 Medical Branch fenofibrate 2022-0 Yes Univer s 54 mg 9-17 ity of tablet 00:00: [place] 00 Medical Branch fenofibrate 2022-0 Yes Univer s 54 mg 9-17 ity of tablet 00:00: [place] 00 Medical Branch fenofibrate 2022-0 Yes Univer s 54 mg 9-17 ity of tablet 00:00: [place] 00 Medical Branch Blood-Gluco 2022-0 Yes Change Univ ers [...] 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 ) [place] Blood-Gluco Yes Change Univ ers se Sensor 01-13 sensor ity of (DEXCOM G6 00:00: every 10 [place] SENSOR) 00 days,Dx: Medical [place] E11.65 Branch Blood-Gluco 2022- No Change Uni vers se 01-13 transmitte ity of Transmitter 00:00: 00:00 r every 90 [place] (DEXCOM G6 00 :00 days, Dx: [facility] 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 ) [place] Blood-Gluco 2022- No Change Uni vers se Sensor 01-13 sensor ity of (DEXCOM G6 00:00[place] 00:00 [place] 10 [place] SENSOR[place] 00 :00 days,Dx: Medical Marc[place] E11.65 Branch insulin Yes [id number] Inject Univ ers regular 6-28 90-100 ity of human 00:00: units at [place] (HUMULIN R) 00 breakfast, Me dical 500 unit/mL 50-80 Branch injection units with lunch and 80-100 units at dinner Dx E11.40 insulin Yes [id number] 1{appli 1 Uni vers U-500 6-28 cator} Applicator ity of syringe-nee 00:00: 3 (three) [place] (BD 00 times Medical INSULIN daily with Branch SYRINGE meals. Use U-500) 1/2 to mL 31 gauge administer x 15/64" U-500 Syrg insulin three times a day. Dx. E11.40 insulin Yes [id number] Inject Univ ers regular 6-28 90-100 ity of human 00:00: units at [place] (HUMULIN R) 00 breakfast, Me dical 500 unit/mL 50-80 Branch injection units with lunch and 80-100 units at dinner Dx E11.40 insulin Yes [id number] 1{appli 1 Uni vers U-500 6-28 cator} Applicator ity of syringe-nee 00:00: 3 (three) [place] (BD 00 times Medical INSULIN daily with Branch SYRINGE meals. Use U-500) 1/2 to mL 31 gauge administer x 15/64" U-500 Syrg insulin three times a day. Dx. E11.40 insulin Yes [id number] Inject Univ ers regular 6-28 90-100 ity of human 00:00: units at [place] (HUMULIN R) 00 breakfast, Me dical 500 unit/mL 50-80 Branch injection units with lunch and 80-100 units at dinner Dx E11.40 insulin 0 Yes [id number] 1{appli 1 Uni vers U-500 628 cator} Applicator ity of syringe-nee 00:00: 3 (three) [place] (BD 00 times Medical INSULIN daily with Branch SYRINGE meals. Use U-500) 1/2 to mL 31 gauge administer x 15/64" U-500 Syrg insulin three times a day. Dx. E11.40 insulin 0 Yes [id number] Inject Univ ers regular 6-28 90-100 ity of human 00:00: units at [place] (HUMULIN R) 00 breakfast, Me dical 500 unit/mL 50-80 Branch injection units with lunch and 80-100 units at dinner Dx E11.40 insulin 0 Yes [id number] 1{appli 1 Uni vers U-500 12-15 cator} Applicator ity of syringe-nee 00:00: 3 (three) [place] (BD 00 times Medical INSULIN daily with Branch SYRINGE meals. Use U-500) 1/2 to mL 31 gauge administer x 15/64" U-500 Syrg insulin three times a day. Dx. E11.40 insulin 0 Yes [id number] Inject Univ ers regular 6-28 90-100 ity of human 00:00: units at [place] (HUMULIN R) 00 breakfast, Me dical 500 unit/mL 50-80 Branch injection units with lunch and 80-100 units at dinner Dx E11.40 insulin 2021-0 Yes [id number] 1{appli 1 Uni vers U-500 6-28 cator} Applicator ity of syringe-nee 00:00: 3 (three) [place] (BD 00 times Medical INSULIN daily with Branch SYRINGE meals. Use U-500) 1/2 to mL 31 gauge administer x 15/64" U-500 Syrg insulin three times a day. Dx. E11.40 insulin 0 Yes [id number] Inject Univ ers regular 6-28 90-100 ity of human 00:00: units at [place] (HUMULIN R) 00 breakfast, Me dical 500 unit/mL 50-80 Branch injection units with lunch and 80-100 units at dinner Dx E11.40 insulin 0 Yes [id number] 1{appli 1 Uni vers U-500 6-28 cator} Applicator ity of syringe-nee 00:00: 3 (three) [place] (BD 00 times Medical INSULIN daily with Branch SYRINGE meals. Use U-500) 1/2 to mL 31 gauge administer x 15/64" U-500 Syrg insulin three times a day. Dx. E11.40 insulin 0 Yes [id number] Inject Univ ers regular 6-28 90-100 ity of human 00:00: units at [place] (HUMULIN R) 00 breakfast, Me dical 500 unit/mL 50-80 Branch injection units with lunch and 80-100 units at dinner Dx E11.40 insulin 0 Yes [id number] 1{appli 1 Uni vers U-500 6-28 cator} Applicator ity of syringe-nee 00:00: 3 (three) [place] (BD 00 times Medical INSULIN daily with Branch SYRINGE meals. Use U-500) 1/2 to mL 31 gauge administer x 15/64" U-500 Syrg insulin three times a day. Dx. E11.40 insulin 0 Yes [id number] Inject Univ ers regular 6-28 90-100 ity of human 00:00: units at [place] (HUMULIN R) 00 breakfast, Me dical 500 unit/mL 50-80 Branch injection units with lunch and 80-100 units at dinner Dx E11.40 insulin 2021-0 Yes [id number] 1{appli 1 Uni vers U-500 6-28 cator} Applicator ity of syringe-nee 00:00: 3 (three) [place] (BD 00 times Medical INSULIN daily with Branch SYRINGE meals. Use U-500) 1/2 to mL 31 gauge administer x 15/64" U-500 Syrg insulin three times a day. Dx. E11.40 insulin 0 Yes [id number] Inject Univ ers regular 6-28 90-100 ity of human 00:00: units at [place] (HUMULIN R) 00 breakfast, Me dical 500 unit/mL 50-80 Branch injection units with lunch and 80-100 units at dinner Dx E11.40 insulin 0 Yes [id number] 1{appli 1 Uni vers U-500 12-15 cator} Applicator ity of syringe-nee 00:00: 3 (three) [place] (BD 00 times Medical INSULIN daily with Branch SYRINGE meals. Use U-500) 1/2 to mL 31 gauge administer x 15/64" U-500 Syrg insulin three times a day. Dx. E11.40 insulin 0 Yes [id number] Inject Univ ers regular 12-15 90-100 ity of human 00:00: units at [place] (HUMULIN R) 00 breakfast, Me dical 500 unit/mL 50-80 Branch injection units with lunch and 80-100 units at dinner Dx E11.40 insulin 0 Yes [id number] 1{appli 1 Uni vers U-500 12-15 cator} Applicator ity of syringe-nee 00:00: 3 (three) [place] (BD 00 times Medical INSULIN daily with Branch SYRINGE meals. Use U-500) 1/2 to mL 31 gauge administer x 15/64" U-500 Syrg insulin three times a day. Dx. E11.40 insulin 0 2021- No [id number] Inject Uni vers regular -04-20 90-100 ity of human 00:00: 00:00 units at [place] (HUMULIN R) 00 :00 breakfast, Me dical 500 unit/mL 50-80 Branch injection units with lunch and 80-100 units at dinner Dx E11.40 insulin 0 2021- No [id number] 1{appli 1 Un beth U-500 12-15 cator} Applicator ity o f syringe-nee 00:00: 00:00 3 (three) [place] (BD 00 :00 times Medical INSULIN daily with Branch SYRINGE meals. Use U-500) 1/2 to mL 31 gauge administer x 15/64" U-500 Syrg insulin three times a day. Dx. E11.40 insulin 0 2021- No [id number] Inject Uni vers regular 12-15 90-100 ity of human 00:00: 00:00 units at [place] (HUMULIN R) 00 :00 breakfast, Me dical 500 unit/mL 50-80 Branch injection units with lunch and 80-100 units at dinner Dx E11.40 insulin 2021-0 2021- No [id number] 1{appli 1 Un [place]eth U-500 12-15 cator} Applicator ity o f syringe-nee 00:00: 00:00 3 (three) [place] (BD 00 :00 times Medical INSULIN daily with Branch SYRINGE meals. Use U-500) 1/2 to mL 31 gauge administer x 15/64" U-500 Syrg insulin three times a day. Dx. E11.40 SIMVASTATIN 2021-0 Yes [id number] TAKE 1 [facility] 20 mg 6-26 TABLET AT ity of tablet 00:00: BEDTIME [place] [facility] SIMVASTATIN 2021-0 Yes [id number] TAKE 1 [facility] 20 mg 6-26 TABLET AT ity of tablet 00:00: BEDTIME [place] [facility] SIMVASTATIN 2021-0 Yes [id number] TAKE 1 [facility] 20 mg 6-26 TABLET AT ity of tablet 00:00: BEDTIME [place] [facility] SIMVASTATIN 2021-0 Yes [id number] TAKE 1 [facility] 20 mg 6-26 TABLET AT ity of tablet 00:00: BEDTIME [place] [facility] SIMVASTATIN 2021-0 Yes [id number] TAKE 1 [facility] 20 mg 6-26 TABLET AT ity of tablet 00:00: BEDTIME [place] [facility] SIMVASTATIN 2021-0 Yes [id number] TAKE 1 [facility] 20 mg 6-26 TABLET AT ity of tablet 00:00: BEDTIME [place] [facility] SIMVASTATIN 2021-0 Yes [id number] TAKE 1 [facility] 20 mg 6-26 TABLET AT ity of tablet 00:00: BEDTIME [place] [facility] SIMVASTATIN 2022-0 Yes [id number] TAKE 1 [facility] 20 mg 6-26 TABLET AT ity of tablet 00:00: BEDTIME [place] [facility] SIMVASTATIN 2-0 Yes [id number] TAKE 1 [facility] 20 mg 6-26 TABLET AT ity of tablet 00:00: BEDTIME [place] [facility] SIMVASTATIN 2022-0 Yes [id number] TAKE 1 [facility] 20 mg 6-26 TABLET AT ity of tablet 00:00: BEDTIME [place] [facility] SIMVASTATIN 2021-0 2021- No [id number] TAKE 1 [facility] 20 mg 6-26 04-20 TABLET AT ity of tablet 00:00: 00:00 BEDTIME [place] 00 : [facility] SIMVASTATIN 2022-0 2022- No [id number] TAKE 1 [facility] 20 mg 6-26 - TABLET AT ity of tablet 00:00: 00:00 BEDTIME [place] 00 :00 Medical Branch metFORMIN 2021-0 Yes [id number] 1000mg Take 1 [facility] 1,000 mg 5-03 tablet by ity of tablet 00:00: mouth 2 [place] (two) Medical times Branch daily with meals. lisinopriL- 2021-0 Yes [id number] TAKE 1 [facility] hydrochloro 5-03 TABLET ity of thiazide 00:00: TWICE A [place] 20-12.5 mg 00 DAY Medical per tablet Branch metFORMIN 2021-0 Yes [id number] 1000mg Take 1 [facility] 1,000 mg 5-03 tablet by ity of tablet 00:00: mouth 2 [place] (two) Medical times Branch daily with meals. lisinopriL- 2021-0 Yes [id number] TAKE 1 [facility] hydrochloro 5-03 TABLET ity of thiazide 00:00: TWICE A [place] 20-12.5 mg 00 DAY Medical per tablet Branch metFORMIN 2021-0 Yes [id number] 1000mg Take 1 [facility] 1,000 mg 5-03 tablet by ity of tablet 00:00: mouth 2 [place] (two) Medical times Branch daily with meals. lisinopriL- 2021-0 Yes [id number] TAKE 1 [facility] hydrochloro 5-03 TABLET ity of thiazide 00:00: TWICE A [place] 20-12.5 mg 00 DAY Medical per tablet Branch metFORMIN 2021-0 Yes [id number] 1000mg Take 1 [facility] 1,000 mg 5-03 tablet by ity of tablet 00:00: mouth 2 [place] (two) Medical times Branch daily with meals. lisinopriL- 2021-0 Yes [id number] TAKE 1 [facility] hydrochloro 5-03 TABLET ity of thiazide 00:00: TWICE A [place] 20-12.5 mg 00 DAY Medical per tablet Branch metFORMIN 2021-0 Yes [id number] 1000mg Take 1 [facility] 1,000 mg 5-03 tablet by ity of tablet 00:00: mouth 2 [place] (two) Medical times Branch daily with meals. lisinopriL- 2021-0 Yes [id number] TAKE 1 [facility] hydrochloro 5-03 TABLET ity of thiazide 00:00: TWICE A [place] 20-12.5 mg 00 DAY Medical per tablet Branch metFORMIN 2022-0 Yes [id number] 1000mg Take 1 [facility] 1,000 mg 5-03 tablet by ity of tablet 00:00: mouth 2 [place] 00 (two) Medical times Branch daily with meals. lisinopriL- 2022-0 Yes [id number] TAKE 1 [facility] hydrochloro 5-03 TABLET ity of thiazide 00:00: TWICE A [place] 20-12.5 mg 00 DAY Medical per tablet Branch metFORMIN 2022-0 Yes [id number] 1000mg Take 1 [facility] 1,000 mg 5-03 tablet by ity of tablet 00:00: mouth 2 [place] 00 (two) Medical times Branch daily with meals. lisinopriL- 2-0 Yes [id number] TAKE 1 [facility] hydrochloro 5-03 TABLET ity of thiazide 00:00: TWICE A [place] 20-12.5 mg 00 DAY Medical per tablet Branch metFORMIN 2-0 Yes [id number] 1000mg Take 1 [facility] 1,000 mg 5-03 tablet by ity of tablet 00:00: mouth 2 [place] (two) Medical times Branch daily with meals. lisinopriL- 2-0 Yes [id number] TAKE 1 [facility] hydrochloro 5-03 TABLET ity of thiazide 00:00: TWICE A [place] 20-12.5 mg 00 DAY Medical per tablet Branch metFORMIN 2-0 Yes [id number] 1000mg Take 1 [facility] 1,000 mg 5-03 tablet by ity of tablet 00:00: mouth 2 [place] (two) Medical times Branch daily with meals. lisinopriL- 2-0 Yes [id number] TAKE 1 [facility] hydrochloro 5-03 TABLET ity of thiazide 00:00: TWICE A [place] 20-12.5 mg 00 DAY Medical per tablet Branch lisinopriL- 2022-0 Yes [id number] TAKE 1 [facility] hydrochloro 5-03 TABLET ity of thiazide 00:00: TWICE A [place] 20-12.5 mg 00 DAY Medical per tablet Branch lisinopriL- 2022-0 2022- No [id number] TAKE 1 Univers hydrochloro 5-03 11-01 TABLET ity o f thiazide 00:00: 00:00 TWICE A [place] 20-12.5 mg 00 :00 DAY Medical per tablet Branch lisinopriL- 2022-0 2- No [id number] TAKE 1 Univers hydrochloro 5-03 11-01 TABLET ity o f thiazide 00:00: 00:00 TWICE A [place] 20-12.5 mg 00 :00 DAY Medical per tablet Branch metFORMIN 2-0 2022- No [id number] 1000mg Take 1 Univers 1,000 mg 5-03 10-29 tablet by ity o f tablet 00:00: 00:00 mouth 2 [place] 00 :00 (two) Medical times Branch daily with meals. dapaglifloz 2022-0 Yes [id number] 10mg Take 1 Univers in 4-26 tablet by ity of () 00:00: mouth [place] 10 mg 00 daily. Medical tablet Branch dapaglifloz 2022-0 Yes [id number] 10mg Take 1 Univers in 4-26 tablet by ity of () 00:00: mouth [place] 10 mg 00 daily. Medical tablet Branch dapaglifloz 2022-0 Yes [id number] 10mg Take 1 Univers in 4-26 tablet by ity of () 00:00: mouth [place] 10 mg 00 daily. Medical tablet Branch dapaglifloz 2-0 Yes [id number] 10mg Take 1 [facility] in 4-26 tablet by ity of () 00:00: mouth [place] 10 mg 00 daily. Medical tablet Branch dapaglifloz 2022-0 Yes [id number] 10mg Take 1 [facility] in 4-26 tablet by ity of () 00:00: mouth [place] 10 mg 00 daily. Medical tablet Branch dapaglifloz 2022-0 2022- No [id number] 10mg Take 1 [facility] in 4-26 09-25 tablet by ity of () 00:00: 00:00 mouth [place] 10 mg 00 :00 daily. Medical tablet Branch ACCU-CHEK 2022-0 Yes USE TO [facility] GUIDE TEST 4-06 CHECK ity of [...] DAY Branch ACCU-CHEK 2022-0 Yes USE TO [facility] GUIDE TEST 4-06 CHECK ity of [...] TIMES A Medical DAY Branch ACCU-CHEK 2021-0 2022- No USE TO Unive rs FASTCLIX 3-17 -27 CHECK ity of LANCET DRUM 00:00: 00:00 GLUCOSE 3 [place] Misc 00 :00 TIMES A Medical DAY Branch Insulin 0 Yes [id number] Use 3 Unive rs [place], 2-14 times ity of Disposable, 00:00: daily with [place] (BD INSULIN 00 insulin. Medi jada PEN NEEDLE Dx E11.65 Bran ch UF) 31 gauge x 5/16" Ndle Insulin Yes [id number] Use 3 Unive rs [place], 2-14 times ity of Disposable, 00:00: daily with [place] (BD INSULIN 00 insulin. Medi jada PEN NEEDLE Dx E11.65 Bran ch UF) 31 gauge x 5/16" Ndle Insulin Yes [id number] Use 3 Unive rs [place], 2-14 times ity of Disposable, 00:00: daily with [place] (BD INSULIN 00 insulin. Medi jada PEN NEEDLE Dx E11.65 Bran ch UF) 31 gauge x 5/16" Ndle Insulin 0 Yes [id number] Use 3 Unive rs [place], 2-14 times ity of Disposable, 00:00: daily with [place] (BD INSULIN 00 insulin. Medi jada PEN NEEDLE Dx E11.65 Bran ch UF) 31 gauge x 5/16" Ndle Insulin 2021-0 Yes [id number] Use 3 Unive rs [place], 2-14 times ity of Disposable, 00:00: daily with [place] (BD INSULIN 00 insulin. Medi jada PEN NEEDLE Dx E11.65 Bran ch UF) 31 gauge x 5/16" Ndle Insulin 0 Yes [id number] Use 3 Unive rs [place], 2-14 times ity of Disposable, 00:00: daily with [place] (BD INSULIN 00 insulin. Medi jada PEN NEEDLE Dx E11.65 Bran ch UF) 31 gauge x 5/16" Ndle Insulin 2021-0 Yes [id number] Use 3 Unive rs [place], 2-14 times ity of Disposable, 00:00: daily with [place] (BD INSULIN 00 insulin. Medi jada PEN NEEDLE Dx E11.65 Bran ch UF) 31 gauge x 5/16" Ndle Insulin 2021-0 Yes [id number] Use 3 Unive rs [place], 2-14 times ity of Disposable, 00:00: daily with [place] (BD INSULIN 00 insulin. Medi jada PEN NEEDLE Dx E11.65 Bran ch UF) 31 gauge x 5/16" Ndle Insulin 2021-0 Yes [id number] Use 3 Unive rs [place], 2-14 times ity of Disposable, 00:00: daily with [place] (BD INSULIN 00 insulin. Medi jada PEN NEEDLE Dx E11.65 Bran ch UF) 31 gauge x 5/16" Ndle Insulin 2021-0 Yes [id number] Use 3 Unive rs [place], 2-14 times ity of Disposable, 00:00: daily with [place] (BD INSULIN 00 insulin. Medi jada PEN NEEDLE Dx E11.65 Bran ch UF) 31 gauge x 5/16" Ndle Insulin 2021-0 Yes [id number] Use 3 Unive rs [place], 2-14 times ity of Disposable, 00:00: daily with [place] (BD INSULIN 00 insulin. Medi jada PEN NEEDLE Dx E11.65 Bran ch UF) 31 gauge x 5/16" Ndle Insulin 2021-0 Yes [id number] Use 3 Unive rs [place], 2-14 times ity of Disposable, 00:00: daily with [place] (BD INSULIN 00 insulin. Medi jada PEN NEEDLE Dx E11.65 Bran ch UF) 31 gauge x 5/16" Ndle Insulin 2021-0 Yes [id number] Use 3 Unive rs [place], 2-14 times ity of Disposable, 00:00: daily with [place] (BD INSULIN 00 insulin. Medi jada PEN NEEDLE Dx E11.65 Bran ch UF) 31 gauge x 5/16" Ndle Insulin 2021-0 Yes [id number] Use 3 Unive rs [place], 2-14 times ity of Disposable, 00:00: daily with [place] (BD INSULIN 00 insulin. Medi jada PEN NEEDLE Dx E11.65 Bran ch UF) 31 gauge x 5/16" Ndle Insulin 2021-0 Yes [id number] Use 3 Unive rs [place], 2-14 times ity of Disposable, 00:00: daily with [place] (BD INSULIN 00 insulin. Medi jada PEN NEEDLE Dx E11.65 Bran ch UF) 31 gauge x 5/16" Ndle Insulin Yes [id number] Use 3 Unive rs [place], 2-14 times ity of Disposable, 00:00: daily with [place] (BD INSULIN 00 insulin. Medi jada PEN NEEDLE Dx E11.65 Bran ch UF) 31 gauge x 5/16" Ndle Insulin Yes [id number] Use 3 Unive rs [place], 2-14 times ity of Disposable, 00:00: daily with [place] (BD INSULIN 00 insulin. Medi jada PEN NEEDLE Dx E11.65 Bran ch UF) 31 gauge x 5/16" Ndle Insulin Yes [id number] Use 3 Unive rs [place], 2-14 times ity of Disposable, 00:00: daily with [place] (BD INSULIN 00 insulin. Medi jada PEN NEEDLE Dx E11.65 Bran ch UF) 31 gauge x 5/16" Ndle Insulin 2021- No [id number] Use 3 Univ ers [place], 2-14 12-15 times ity of Disposable, 00:00: 00:00 daily with [place] (BD INSULIN 00 :00 insulin. Medi jada PEN NEEDLE Dx E11.65 Bran ch UF) 31 gauge x 5/16" Ndle aspirin 2020-06 Yes 81mg Take 81 mg U nivers mg EC 2-02 by mouth ity of tablet 17:14: daily. [address] multivit-mi 2020-06 Yes 1{tbl} Take 1 Un beth n-FA-lycope 2-02 tablet by ity of n-lutein 17:14: mouth [place] (CENTRUM 57 daily. Medical SILVER MEN) Branch 300-600-300 mcg Tab aspirin 2020-06 Yes 81mg Take 81 mg U nivers mg EC 2-02 by mouth ity of tablet 17:14: daily. [address] multivit-mi 2020-06 Yes 1{tbl} Take 1 Un [facility]eth n-FA-lycope 2-02 tablet by ity of n-lutein 17:14: mouth [place] (CENTRUM 57 daily. Medical SILVER MEN) Branch 300-600-300 mcg Tab aspirin 2020-06 Yes 81mg Take 81 mg U nivers mg EC 2-02 by mouth ity of tablet 17:14: daily. [address] 2020-06 Yes 1{tbl} Take 1 Un beth n-FA-lycope 2-02 tablet by ity of n-lutein 17:14: mouth [place] (CENTRUM 57 daily. Medical SILVER MEN) Branch 300-600-300 mcg Tab aspirin 81 2020-06 Yes 81mg Take 81 mg U nivers mg EC 2-02 by mouth ity of tablet 17:14: daily. [address] 2020-06 Yes 1{tbl} Take 1 Un beth n-FA-lycope 2-02 tablet by ity of n-lutein 17:14: mouth [place] (CENTRUM 57 daily. Medical SILVER MEN) Branch 300-600-300 mcg Tab aspirin 2020-06 Yes 81mg Take 81 mg U nivers mg EC 2-02 by mouth ity of tablet 17:14: daily. [address] 2020-06 Yes 1{tbl} Take 1 Un beth n-FA-lycope 2-02 tablet by ity of n-lutein 17:14: mouth [place] (CENTRUM 57 daily. Medical SILVER MEN) Branch 300-600-300 mcg Tab aspirin 81 2020-06 Yes 81mg Take 81 mg U nivers mg EC 2-02 by mouth ity of tablet 17:14: daily. [address] 2020-06 Yes 1{tbl} Take 1 Un beth n-FA-lycope 2-02 tablet by ity of n-lutein 17:14: mouth [place] (CENTRUM 57 daily. Medical SILVER MEN) Branch 300-600-300 mcg Tab aspirin 81 2020-06 Yes 81mg Take 81 mg U nivers mg EC 2-02 by mouth ity of tablet 17:14: daily. [address] 2020-06 Yes 1{tbl} Take 1 Un beth n-FA-lycope 2-02 tablet by ity of n-lutein 17:14: mouth [place] (CENTRUM 57 daily. Medical SILVER MEN) Branch 300-600-300 mcg Tab aspirin 81 2020-06 Yes 81mg Take 81 mg U nivers mg EC 2-02 by mouth ity of tablet 17:14: daily. [address] 2020-06 Yes 1{tbl} Take 1 Un beth n-FA-lycope 2-02 tablet by ity of n-lutein 17:14: mouth [place] (CENTRUM 57 daily. Medical SILVER MEN) Branch 300-600-300 mcg Tab aspirin 81 2020-06 Yes 81mg Take 81 mg U nivers mg EC 2-02 by mouth ity of tablet 17:14: daily. [address] 2020-06 Yes 1{tbl} Take 1 Un beth n-FA-lycope 2-02 tablet by ity of n-lutein 17:14: mouth [place] (CENTRUM 57 daily. Medical SILVER MEN) Branch 300-600-300 mcg Tab aspirin 81 2020-06 Yes 81mg Take 81 mg U nivers mg EC 2-02 by mouth ity of tablet 17:14: daily. [address] 2020-06 Yes 1{tbl} Take 1 Un beth n-FA-lycope 2-02 tablet by ity of n-lutein 17:14: mouth [place] (CENTRUM 57 daily. Medical SILVER MEN) Branch 300-600-300 mcg Tab aspirin 81 2020-06 Yes 81mg Take 81 mg U nivers mg EC 2-02 by mouth ity of tablet 17:14: daily. [address] 2020-06 Yes 1{tbl} Take 1 Un beth n-FA-lycope 2-02 tablet by ity of n-lutein 17:14: mouth [place] (CENTRUM 57 daily. Medical SILVER MEN) Branch 300-600-300 mcg Tab aspirin 81 2020-06 Yes 81mg Take 81 mg U nivers mg EC 2-02 by mouth ity of tablet 17:14: daily. [address] 2020-06 Yes 1{tbl} Take 1 Un beth n-FA-lycope 2-02 tablet by ity of n-lutein 17:14: mouth [place] (CENTRUM 57 daily. Medical SILVER MEN) Branch 300-600-300 mcg Tab aspirin 81 2020-06 Yes 81mg Take 81 mg U nivers mg EC 2-02 by mouth ity of tablet 17:14: daily. [address] 2020-06 Yes 1{tbl} Take 1 Un beth n-FA-lycope 2-02 tablet by ity of n-lutein 17:14: mouth [place] (CENTRUM 57 daily. Medical SILVER MEN) Branch 300-600-300 mcg Tab aspirin 81 2020-06 Yes 81mg Take 81 mg U nivers mg EC 2-02 by mouth ity of tablet 17:14: daily. [address] 2020-06 Yes 1{tbl} Take 1 Un beth n-FA-lycope 2-02 tablet by ity of n-lutein 17:14: mouth [place] (CENTRUM 57 daily. Medical SILVER MEN) Branch 300-600-300 mcg Tab aspirin 81 2020-06 Yes 81mg Take 81 mg U nivers mg EC 2-02 by mouth ity of tablet 17:14: daily. [address] 2020-06 Yes 1{tbl} Take 1 Un beth n-FA-lycope 2-02 tablet by ity of n-lutein 17:14: mouth [place] (CENTRUM 57 daily. Medical SILVER MEN) Branch 300-600-300 mcg Tab aspirin 2020-06 Yes 81mg Take 81 mg U nivers mg EC 2-02 by mouth ity of tablet 17:14: daily. [address] 2020-06 Yes 1{tbl} Take 1 Un beth n-FA-lycope 2-02 tablet by ity of n-lutein 17:14: mouth [place] (CENTRUM 57 daily. Medical SILVER MEN) Branch 300-600-300 mcg Tab aspirin 2020-06 Yes 81mg Take 81 mg U nivers mg EC 2-02 by mouth ity of tablet 17:14: daily. [address] 2020-06 Yes 1{tbl} Take 1 Un beth n-FA-lycope 2-02 tablet by ity of n-lutein 17:14: mouth [place] (CENTRUM 57 daily. Medical SILVER MEN) Branch 300-600-300 mcg Tab aspirin 81 2020-06 Yes 81mg Take 81 mg U nivers mg EC 2-02 by mouth ity of tablet 17:14: daily. [address] 2020-06 Yes 1{tbl} Take 1 Un beth n-FA-lycope 2-02 tablet by ity of n-lutein 17:14: mouth [place] (CENTRUM 57 daily. Medical SILVER MEN) Branch 300-600-300 mcg Tab aspirin 81 2020-06 Yes 81mg Take 81 mg U nivers mg EC 2-02 by mouth ity of tablet 17:14: daily. [address] 2020-06 Yes 1{tbl} Take 1 Un beht n-FA-lycope 2-02 tablet by ity of n-lutein 17:14: mouth [place] (CENTRUM 57 daily. Medical SILVER MEN) Branch 300-600-300 mcg Tab aspirin 81 2020-06 Yes 81mg Take 81 mg U nivers mg EC 2-02 by mouth ity of tablet 17:14: daily. [address] 2020-06 Yes 1{tbl} Take 1 Un beth n-FA-lycope 2-02 tablet by ity of n-lutein 17:14: mouth [place] (CENTRUM 57 daily. Medical SILVER MEN) Branch 300-600-300 mcg Tab aspirin 81 2020-06 Yes 81mg Take 81 mg U nivers mg EC 2-02 by mouth ity of tablet 17:14: daily. [address] 2020-06 Yes 1{tbl} Take 1 Un beth n-FA-lycope 2-02 tablet by ity of n-lutein 17:14: mouth [place] (CENTRUM 57 daily. Medical SILVER MEN) Branch 300-600-300 mcg Tab aspirin 81 2020-06 Yes 81mg Take 81 mg U nivers mg EC 2-02 by mouth ity of tablet 17:14: daily. [address] 2020-06 Yes 1{tbl} Take 1 Un beth n-FA-lycope 2-02 tablet by ity of n-lutein 17:14: mouth [place] (CENTRUM 57 daily. Medical SILVER MEN) Branch 300-600-300 mcg Tab aspirin 81 2020-06 Yes 81mg Take 81 mg U nivers mg EC 2-02 by mouth ity of tablet 17:14: daily. [address] 2020-06 Yes 1{tbl} Take 1 Un beth n-FA-lycope 2-02 tablet by ity of n-lutein 17:14: mouth [place] (CENTRUM 57 daily. Medical SILVER MEN) Branch 300-600-300 mcg Tab aspirin 81 2020-06 Yes 81mg Take 81 mg U nivers mg EC 2-02 by mouth ity of tablet 17:14: daily. [address] 2020-06 Yes 1{tbl} Take 1 Un beth n-FA-lycope 2-02 tablet by ity of n-lutein 17:14: mouth [place] (CENTRUM 57 daily. Medical SILVER MEN) Branch 300-600-300 mcg Tab aspirin 81 2020-06 Yes 81mg Take 81 mg U nivers mg EC 2-02 by mouth ity of tablet 17:14: daily. [address] 2020-06 Yes 1{tbl} Take 1 Un beth n-FA-lycope 2-02 tablet by ity of n-lutein 17:14: mouth [place] (CENTRUM 57 daily. Medical SILVER MEN) Branch 300-600-300 mcg Tab aspirin 81 2020-06 Yes 81mg Take 81 mg U nivers mg EC 2-02 by mouth ity of tablet 17:14: daily. [address] 2020-06 Yes 1{tbl} Take 1 Un beth n-FA-lycope 2-02 tablet by ity of n-lutein 17:14: mouth [place] (CENTRUM 57 daily. Medical SILVER MEN) Branch 300-600-300 mcg Tab aspirin 2020-06 Yes 81mg Take 81 mg U nivers mg EC 2-02 by mouth ity of tablet 17:14: daily. [address] 2020-06 Yes 1{tbl} Take 1 Un beth n-FA-lycope 2-02 tablet by ity of n-lutein 17:14: mouth [place] (CENTRUM 57 daily. Medical SILVER MEN) Branch 300-600-300 mcg Tab aspirin 81 2020-06 Yes 81mg Take 81 mg U nivers mg EC 2-02 by mouth ity of tablet 17:14: daily. [address] 2020-06 Yes 1{tbl} Take 1 Un beth n-FA-lycope 2-02 tablet by ity of n-lutein 17:14: mouth [place] (CENTRUM 57 daily. Medical SILVER MEN) Branch 300-600-300 mcg Tab aspirin 81 2020-06 Yes 81mg Take 81 mg U nivers mg EC 2-02 by mouth ity of tablet 17:14: daily. [address] 2020-06 Yes 1{tbl} Take 1 Un beth n-FA-lycope 2-02 tablet by ity of n-lutein 17:14: mouth [place] (CENTRUM 57 daily. Medical SILVER MEN) Branch 300-600-300 mcg Tab aspirin 81 2020-06 Yes 81mg Take 81 mg U nivers mg EC 2-02 by mouth ity of tablet 17:14: daily. [address] 2020-06 Yes 1{tbl} Take 1 Un beth n-FA-lycope 2-02 tablet by ity of n-lutein 17:14: mouth [place] (CENTRUM 57 daily. Medical SILVER MEN) Branch 300-600-300 mcg Tab aspirin 81 2020-06 Yes 81mg Take 81 mg U nivers mg EC 2-02 by mouth ity of tablet 17:14: daily. [address] 2020-06 Yes 1{tbl} Take 1 Un beth n-FA-lycope 2-02 tablet by ity of n-lutein 17:14: mouth [place] (CENTRUM 57 daily. Medical SILVER MEN) Branch 300-600-300 mcg Tab aspirin 81 2020-06 Yes 81mg Take 81 mg U nivers mg EC 2-02 by mouth ity of tablet 17:14: daily. [address] 2020-06 Yes 1{tbl} Take 1 Un beth n-FA-lycope 2-02 tablet by ity of n-lutein 17:14: mouth [place] (CENTRUM 57 daily. Medical SILVER MEN) Branch 300-600-300 mcg Tab aspirin 81 2020-06 Yes 81mg Take 81 mg U nivers mg EC 2-02 by mouth ity of tablet 17:14: daily. [address] 2020-06 Yes 1{tbl} Take 1 Un beth n-FA-lycope 2-02 tablet by ity of n-lutein 17:14: mouth [place] (CENTRUM 57 daily. Medical SILVER MEN) Branch 300-600-300 mcg Tab aspirin 81 2020-06 Yes 81mg Take 81 mg U nivers mg EC 2-02 by mouth ity of tablet 17:14: daily. [address] 2020-06 Yes 1{tbl} Take 1 Un beth n-FA-lycope 2-02 tablet by ity of n-lutein 17:14: mouth [place] (CENTRUM 57 daily. Medical SILVER MEN) Branch 300-600-300 mcg Tab aspirin 81 2020-06 Yes 81mg Take 81 mg U nivers mg EC 2-02 by mouth ity of tablet 17:14: daily. [address] 2020-06 Yes 1{tbl} Take 1 Un beth n-FA-lycope 2-02 tablet by ity of n-lutein 17:14: mouth [place] (CENTRUM 57 daily. Medical SILVER MEN) Branch 300-600-300 mcg Tab aspirin 2020-06 Yes 81mg Take 81 mg U nivers mg EC 2-02 by mouth ity of tablet 17:14: daily. [address] 2020-06 Yes 1{tbl} Take 1 Un beth n-FA-lycope 2-02 tablet by ity of n-lutein 17:14: mouth [place] (CENTRUM 57 daily. Medical SILVER MEN) Branch 300-600-300 mcg Tab aspirin 81 2020-06 Yes 81mg Take 81 mg U nivers mg EC 2-02 by mouth ity of tablet 17:14: daily. [address] 2020-06 Yes 1{tbl} Take 1 Un beth n-FA-lycope 2-02 tablet by ity of n-lutein 17:14: mouth [place] (CENTRUM 57 daily. Medical SILVER MEN) Branch 300-600-300 mcg Tab aspirin 2020-06 Yes 81mg Take 81 mg U nivers mg EC 2-02 by mouth ity of tablet 17:14: daily. [address] 2020-06 Yes 1{tbl} Take 1 Un beth n-FA-lycope 2-02 tablet by ity of n-lutein 17:14: mouth [place] (CENTRUM 57 daily. Medical SILVER MEN) Branch 300-600-300 mcg Tab aspirin 2020-06 Yes 81mg Take 81 mg U nivers mg EC 2-02 by mouth ity of tablet 17:14: daily. [address] 2020-06 Yes 1{tbl} Take 1 Un beth n-FA-lycope 2-02 tablet by ity of n-lutein 17:14: mouth [place] (CENTRUM 57 daily. Medical SILVER MEN) Branch 300-600-300 mcg Tab aspirin 81 2020-06 Yes 81mg Take 81 mg U nivers mg EC 2-02 by mouth ity of tablet 17:14: daily. [address] 2020-06 Yes 1{tbl} Take 1 Un beth n-FA-lycope 2-02 tablet by ity of n-lutein 17:14: mouth [place] (CENTRUM 57 daily. Medical SILVER MEN) Branch 300-600-300 mcg Tab aspirin 81 2020-06 Yes 81mg Take 81 mg U nivers mg EC 2-02 by mouth ity of tablet 17:14: daily. [address] 2020-06 Yes 1{tbl} Take 1 Un beth n-FA-lycope 2-02 tablet by ity of n-lutein 17:14: mouth [place] (CENTRUM 57 daily. Medical SILVER MEN) Branch 300-600-300 mcg Tab aspirin 81 2020-06 Yes 81mg Take 81 mg U nivers mg EC 2-02 by mouth ity of tablet 17:14: daily. [address] 2020-06 Yes 1{tbl} Take 1 Un beth n-FA-lycope 2-02 tablet by ity of n-lutein 17:14: mouth [place] (CENTRUM 57 daily. Medical SILVER MEN) Branch 300-600-300 mcg Tab aspirin 81 2020-06 Yes 81mg Take 81 mg U nivers mg EC 2-02 by mouth ity of tablet 17:14: daily. [address] 2020-06 Yes 1{tbl} Take 1 Un beth n-FA-lycope 2-02 tablet by ity of n-lutein 17:14: mouth [place] (CENTRUM 57 daily. Medical SILVER MEN) Branch 300-600-300 mcg Tab aspirin 81 2020-06 Yes 81mg Take 81 mg U nivers mg EC 2-02 by mouth ity of tablet 17:14: daily. [address] 2020-06 Yes 1{tbl} Take 1 Un bteh n-FA-lycope 2-02 tablet by ity of n-lutein 17:14: mouth [place] (CENTRUM 57 daily. Medical SILVER MEN) Branch 300-600-300 mcg Tab aspirin 81 2020-06 Yes 81mg Take 81 mg U nivers mg EC 2-02 by mouth ity of tablet 17:14: daily. [address] 2020-06 Yes 1{tbl} Take 1 Un beth n-FA-lycope 2-02 tablet by ity of n-lutein 17:14: mouth [place] (CENTRUM 57 daily. Medical SILVER MEN) Branch 300-600-300 mcg Tab aspirin 81 2020-06 Yes 81mg Take 81 mg U nivers mg EC 2-02 by mouth ity of tablet 17:14: daily. [address] 2020-06 Yes 1{tbl} Take 1 Un beth n-FA-lycope 2-02 tablet by ity of n-lutein 17:14: mouth [place] (CENTRUM 57 daily. Medical SILVER MEN) Branch 300-600-300 mcg Tab aspirin 81 2020-06 Yes 81mg Take 81 mg U nivers mg EC 2-02 by mouth ity of tablet 17:14: daily. [address] 2020-06 Yes 1{tbl} Take 1 Un beth n-FA-lycope 2-02 tablet by ity of n-lutein 17:14: mouth [place] (CENTRUM 57 daily. Medical SILVER MEN) Branch 300-600-300 mcg Tab aspirin 81 2020-06 Yes 81mg Take 81 mg U nivers mg EC 2-02 by mouth ity of tablet 17:14: daily. [address] 2020-06 Yes 1{tbl} Take 1 Un beth n-FA-lycope 2-02 tablet by ity of n-lutein 17:14: mouth [place] (CENTRUM 57 daily. Medical SILVER MEN) Branch 300-600-300 mcg Tab aspirin 81 2020-06 Yes 81mg Take 81 mg U nivers mg EC 2-02 by mouth ity of tablet 17:14: daily. [address] 2020-06 Yes 1{tbl} Take 1 Un beth n-FA-lycope 2-02 tablet by ity of n-lutein 17:14: mouth [place] (CENTRUM 57 daily. Medical SILVER MEN) Branch 300-600-300 mcg Tab aspirin 81 2020-1 Yes 81mg Take 81 mg U nivers mg EC 2-02 by mouth ity of tablet 17:14: daily. [address] 2020-06 Yes 1{tbl} Take 1 Un beth n-FA-lycope 2-02 tablet by ity of n-lutein 17:14: mouth [place] (CENTRUM 57 daily. Medical SILVER MEN) Branch 300-600-300 mcg Tab aspirin 2020-06 Yes 81mg Take 81 mg U nivers mg EC 2-02 by mouth ity of tablet 17:14: daily. [address] 2020-06 Yes 1{tbl} Take 1 Un beth n-FA-lycope 2-02 tablet by ity of n-lutein 17:14: mouth [place] (CENTRUM 57 daily. Medical SILVER MEN) Branch 300-600-300 mcg Tab aspirin 2020-06 Yes 81mg Take 81 mg U nivers mg EC 2-02 by mouth ity of tablet 17:14: daily. [address] 2020-06 Yes 1{tbl} Take 1 Un beth n-FA-lycope 2-02 tablet by ity of n-lutein 17:14: mouth [place] (CENTRUM 57 daily. Medical SILVER MEN) Branch 300-600-300 mcg Tab aspirin 2020-06 Yes 81mg Take 81 mg U nivers mg EC 2-02 by mouth ity of tablet 17:14: daily. [address] 2020-06 Yes 1{tbl} Take 1 Un beth n-FA-lycope 2-02 tablet by ity of n-lutein 17:14: mouth [place] (CENTRUM 57 daily. Medical SILVER MEN) Branch 300-600-300 mcg Tab aspirin 2020-06 Yes 81mg Take 81 mg U nivers mg EC 2-02 by mouth ity of tablet 17:14: daily. [address] 2020-06 Yes 1{tbl} Take 1 Un beth n-FA-lycope 2-02 tablet by ity of n-lutein 17:14: mouth [place] (CENTRUM 57 daily. Medical SILVER MEN) Branch 300-600-300 mcg Tab aspirin 2020-06 Yes 81mg Take 81 mg U nivers mg EC 2-02 by mouth ity of tablet 17:14: daily. [place] [address] Medical Branch multivit-mi 2020-06 Yes 1{tbl} Take 1 Un beth n-FA-lycope 2-02 tablet by ity of n-lutein 17:14: mouth [place] (CENTRUM 57 daily. Medical SILVER MEN) Branch 300-600-300 mcg Tab aspirin 81 2020-06 Yes 81mg Take 81 mg U nivers mg EC 2-02 by mouth ity of tablet 17:14: daily. [place] [facility] Medical Branch multivit-mi 2020-06 Yes 1{tbl} Take 1 Un [...] s nuous 00 Medical (DEXCOM G6 Branch COMPLIANCE LEAD) Misc Blood-Gluco 2020-06 Yes Change [facility] ers [...] s nuous 00 Medical (DEXCOM G6 Branch COMPLIANCE LEAD) Misc Blood-Gluco 2020-06 Yes Change Univ ers se 0-11 transmitte ity of Transmitter 00:00: r every 90 [place] (DEXCOM G6 00 days, Dx: Medi 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 ) Marcie Blood-Gluco 2020-06 Yes Use Daily U nivers se 0-11 , Dx: ity of [place] 00:[place]DEXCOM G6 Branch COMPLIANCE LEAD) Misc Blood-Gluco 2020-06 Yes Use Daily U nivers se 0-11 , Dx: ity of [place] 00:00: E[place] [facility] [place]DEXCOM G6 Branch COMPLIANCE LEAD) Misc Blood-Gluco 2020-06 Yes Use Daily U nivers se 0-11 , Dx: ity of [place] 00:00: E11.[place] [facility] (DEXCOM G6 Branch COMPLIANCE LEAD) Misc Blood-Gluco 2020-06 Yes Use Daily U nivers se 0-11 , Dx: ity of [place] 00:00: E11.[place] [facility] (DEXCOM G6 Branch COMPLIANCE LEAD) Misc Blood-Gluco 2020-06 Yes Use Daily U nivers se 0-11 , Dx: ity of [place] 00:00: E11.[place] [facility] (DEXCOM G6 Branch COMPLIANCE LEAD) Misc Blood-Gluco 2020-06 Yes Use Daily U nivers se 0-11 , Dx: ity of [place] 00:00: E11.[place] [facility] (DEXCOM G6 Branch COMPLIANCE LEAD) Misc Blood-Gluco 2020-06 Yes Use Daily U nivers se 0-11 , Dx: ity of [place] 00:00: [place]11.[place] [facility] (DEXCOM G6 Branch COMPLIANCE LEAD) Misc Blood-Gluco 2020-06 Yes Use Daily U nivers se 0-11 , Dx: ity of [place] 00:00: E11.[place] [facility] (DEXCOM G6 Branch COMPLIANCE LEAD) Misc Blood-Gluco 2020-06 Yes Use Daily U nivers se 0-11 , Dx: ity of [place] 00:00: E11.[place] [facility] (DEXCOM G6 Branch COMPLIANCE LEAD) Misc Blood-Gluco 2020-06 Yes Use Daily U nivers se 0-11 , Dx: ity of [place] 00:00: E11.65 [place] [facility] (DEXCOM G6 Branch COMPLIANCE LEAD) Misc Blood-Gluco 2020-06 Yes Use Daily U nivers se 0-11 , Dx: ity of [place] 00:00: E11.65 [place] [facility] (DEXCOM G6 Branch COMPLIANCE LEAD) Misc Blood-Gluco 2020-06 Yes Use Daily U nivers se 0-11 , Dx: ity of [place] 00:00: E11.[place] [facility] (DEXCOM G6 Branch COMPLIANCE LEAD) Misc Blood-Gluco 2020-06 Yes Use Daily U nivers se 0-11 , Dx: ity of [place] 00:00: E11.65 [place] [facility] (DEXCOM G6 Branch COMPLIANCE LEAD) Misc Blood-Gluco 2020-06 Yes Use Daily U nivers se 0-11 , Dx: ity of [place] 00:00: E11.65 [place] [facility] (DEXCOM G6 Branch COMPLIANCE LEAD) Misc Blood-Gluco 2020-06 Yes Use Daily U nivers se 0-11 , Dx: ity of [place] 00:00: E11.65 [place] [facility] (DEXCOM G6 Branch COMPLIANCE LEAD) Misc Blood-Gluco 2020-06 Yes Use Daily U nivers se 0-11 , Dx: ity of [place] 00:00: E11.65 [place] [facility] (DEXCOM G6 Branch COMPLIANCE LEAD) Misc Blood-Gluco 2020-06 Yes Use Daily U nivers se 0-11 , Dx: ity of [place] 00:00: E11.65 [place] [facility] (DEXCOM G6 Branch COMPLIANCE LEAD) Misc Blood-Gluco 2020-06 Yes Use Daily U nivers se 0-11 , Dx: ity of [place] 00:00: E11.[place] [facility] (DEXCOM G6 Branch COMPLIANCE LEAD) Misc Blood-Gluco 2020-06 Yes Use Daily U nivers se 0-11 , Dx: ity of [place] 00:00: E11.[place] [facility] (DEXCOM G6 Branch COMPLIANCE LEAD) Misc Blood-Gluco 2020-06 Yes Use Daily U nivers se 0-11 , Dx: ity of [place] 00:00: E11.65 [place] [facility] (DEXCOM G6 Branch COMPLIANCE LEAD) Misc Blood-Gluco 2020-06 Yes Use Daily U nivers se 0-11 , Dx: ity of [place] 00:00: E11.65 [place] [facility] (DEXCOM G6 Branch COMPLIANCE LEAD) Misc Blood-Gluco 2020-06 Yes Use Daily U nivers se 0-11 , Dx: ity of [place] 00:00: E11.65 [place] [facility] (DEXCOM G6 Branch COMPLIANCE LEAD) Misc Blood-Gluco 2020-06 Yes Use Daily U nivers se 0-11 , Dx: ity of [place] 00:00: E11.65 [place] [facility] (DEXCOM G6 Branch COMPLIANCE LEAD) Misc Blood-Gluco 2020-06 Yes Use Daily U nivers se 0-11 , Dx: ity of [place] 00:00: E11.65 [place] [facility] (DEXCOM G6 Branch COMPLIANCE LEAD) Misc Blood-Gluco 2020-06 Yes Use Daily U nivers se 0-11 , Dx: ity of [place] 00:00: E11.65 [place] [facility] (DEXCOM G6 Branch COMPLIANCE LEAD) Misc Blood-Gluco 2020-06 Yes Use Daily U nivers se 0-11 , Dx: ity of [place] 00:00: E11.65 [place] [facility] (DEXCOM G6 Branch COMPLIANCE LEAD) Misc Blood-Gluco 2020-06 Yes Use Daily U nivers se 0-11 , Dx: ity of [place] 00:00: E11.65 [place] [facility] (DEXCOM G6 Branch COMPLIANCE LEAD) Misc Blood-Gluco 2020-06 Yes Use Daily U nivers se 0-11 , Dx: ity of [place] 00:00: E11.65 [place] [facility] (DEXCOM G6 Branch COMPLIANCE LEAD) Misc Blood-Gluco 2020-06 Yes Use Daily U nivers se 0-11 , Dx: ity of [place] 00:00: E11.65 [place] [facility] (DEXCOM G6 Branch COMPLIANCE LEAD) Misc Blood-Gluco 2020-06 Yes Use Daily U nivers se 0-11 , Dx: ity of [place] 00:00: E11.65 [place] [facility] (DEXCOM G6 Branch COMPLIANCE LEAD) Misc Blood-Gluco 2020-06 Yes Use Daily U nivers se 0-11 , Dx: ity of [place] 00:00: E11.65 [place] [facility] (DEXCOM G6 Branch COMPLIANCE LEAD) Misc Blood-Gluco 2020-06 Yes Use Daily U nivers se 0-11 , Dx: ity of [place] 00:00: E11.65 [place] [facility] (DEXCOM G6 Branch COMPLIANCE LEAD) Misc Blood-Gluco 2020-06 Yes Use Daily U nivers se 0-11 , Dx: ity of [place] 00:00: E11.65 [place] [facility] (DEXCOM G6 Branch COMPLIANCE LEAD) Misc Blood-Gluco 2020-06 Yes Use Daily U nivers se 0-11 , Dx: [facility]y of [place] 00:00: E11.65 [place] [facility] (DEXCOM G6 Branch COMPLIANCE LEAD) Misc Blood-Gluco 2020-06 Yes Use Daily U nivers se 0-11 , Dx: ity of [place] 00:00: E11.65 [place] [facility] (DEXCOM G6 Branch COMPLIANCE LEAD) Misc Blood-Gluco 2020-06 Yes Use Daily U nivers se 0-11 , Dx: ity of [place] 00:00: E11.65 [place] [facility] (DEXCOM G6 Branch COMPLIANCE LEAD) Misc Blood-Gluco 2020-06 Yes Use Daily U nivers se 0-11 , Dx: ity of [place] 00:00: E11.65 [place] [facility] (DEXCOM G6 Branch COMPLIANCE LEAD) Misc Blood-Gluco 2020-06 Yes Use Daily U nivers se 0-11 , Dx: [facility]y of [place] 00:00: E11.65 [place] [facility] (DEXCOM G6 Branch COMPLIANCE LEAD) Misc Blood-Gluco 2020-06 Yes Use Daily U nivers se 0-11 , Dx: ity of [place] 00:00: E11.65 [place] [facility] (DEXCOM G6 Branch COMPLIANCE LEAD) Misc Blood-Gluco 2020-06 Yes Use Daily U nivers se 0-11 , Dx: ity of [place] 00:00: E11.65 [place] [facility] (DEXCOM G6 Branch COMPLIANCE LEAD) Misc Blood-Gluco 2020-06 Yes Use Daily U nivers se 0-11 , Dx: ity of [place] 00:00: E11.65 [place] [facility] (DEXCOM G6 Branch COMPLIANCE LEAD) Misc Blood-Gluco 2020-06 Yes Use Daily U nivers se 0-11 , Dx: ity of [place] 00:00: E11.65 [place] [facility] (DEXCOM G6 Branch COMPLIANCE LEAD) Misc Blood-Gluco 2020-06 Yes Use Daily U nivers se 0-11 , Dx: ity of [place] 00:00: E11.65 [place] [facility] (DEXCOM G6 Branch COMPLIANCE LEAD) Misc Blood-Gluco 2020-06 Yes Use Daily U nivers se 0-11 , Dx: ity of [place] 00:00: E11.65 [place] [facility] (DEXCOM G6 Branch COMPLIANCE LEAD) Misc Blood-Gluco 2020-06 Yes Use Daily U nivers se 0-11 , Dx: ity of [place] 00:00: E11.65 [place] [facility] (DEXCOM G6 Branch COMPLIANCE LEAD) Misc Blood-Gluco 2020-06 Yes Use Daily U nivers se 0-11 , Dx: ity of [place] 00:00: E11.65 [place] [facility] (DEXCOM G6 Branch COMPLIANCE LEAD) Misc Blood-Gluco 2020-06 Yes Use Daily U nivers se 0-11 , Dx: ity of [place] 00:00: E11.65 [place] [facility] (DEXCOM G6 Branch COMPLIANCE LEAD) Misc Blood-Gluco 2020-06 Yes Use Daily U nivers se 0-11 , Dx: ity of [place] 00:00: E11.65 [place] [facility] (DEXCOM G6 Branch COMPLIANCE LEAD) Misc Blood-Gluco 2020-06 Yes Use Daily U nivers se 0-11 , Dx: ity of [place] 00:00: E11.65 [place] [facility] (DEXCOM G6 Branch COMPLIANCE LEAD) Misc Blood-Gluco 2020-06 Yes Use Daily U nivers se 0-11 , Dx: ity of [place] 00:00: E11.65 [place] [facility] (DEXCOM G6 Branch COMPLIANCE LEAD) Misc Blood-Gluco 2020-06 Yes Use Daily U nivers se 0-11 , Dx: ity of [place] 00:00: E11.65 [place] [facility] (DEXCOM G6 Branch COMPLIANCE LEAD) Misc Blood-Gluco 2020-06 Yes Use Daily U nivers se 0-11 , Dx: ity of [place] 00:00: E11.65 [place] [facility] (DEXCOM G6 Branch COMPLIANCE LEAD) Misc Blood-Gluco 2020-06 Yes Use Daily U nivers se 0-11 , Dx: ity of [place] 00:00: E11.65 [place] [facility] (DEXCOM G6 Branch COMPLIANCE LEAD) Misc Blood-Gluco 2020-06 Yes Use Daily U nivers se 0-11 , Dx: ity of [place] 00:00: E11.65 [place] [facility] (DEXCOM G6 Branch COMPLIANCE LEAD) Misc Blood-Gluco 2020-06- No Change Uni vers se Sensor 0-11 07-27 sensor ity of (DEXCOM G6 00:00: 00:00 [place] 10 [place] SENSOR) 00 :00 days,Dx: Medical Marcie E11.65 Branch Blood-Gluco 2020-06- No Change Uni vers se 0-11 07-27 transmitte ity of Transmitter 00:00: 00:00 r every 90 [place] (DEXCOM G6 00 :00 days, Dx: Medi 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 ) Marcie semaglutide 0 Yes 1.2mg inject 1.2 Univers (OZEMPIC 7-27 mg under [facility]y of [place]) 00:00: the skin [place] 00 weekly. Medical Branch semaglutide 2020-0 Yes 1.2mg inject 1.2 [facility] (OZEMPIC 7-27 mg under [facility]y of [place]) 00:00: the skin [place] 00 weekly. Medical Branch semaglutide 2020-0 Yes 1.2mg inject 1.2 [facility] (OZEMPIC 7-27 mg under [facility] [place] 00:[place]: the skin [place] 00 weekly. [facility] semaglutide 2020-0 Yes 1.2mg inject 1.2 [facility] (OZEMPIC 7-27 [...] [facility] [place] skin [place] weekly. [facility] semaglutide 2021-0 Yes 1.2mg [...] skin [place] 00 weekly. [facility] semaglutide 2020-0 Yes 1.2mg inject 1.2 [facility] (OZEMPIC 7-27 [facility] [place] 00:[place]: the skin [place] 00 weekly. [facility] semaglutide 2020-0 2023- No 1.2mg inject 1.2 [facility] (OZEMPIC 7-27 03-03 [place] [facility] [place] 00:00: 00:00 the skin [place] 00 :00 weekly. [facility] semaglutide 2020-0 3- No 1.2mg inject 1.2 [facility] (OZEMPIC 7-27 03-03 [place] [facility] [place] 00:00: 00:00 the skin [place] 00 :00 weekly. [facility] methocarbam 2020-0 Yes [id number] 750mg Take 1 [facility] oL 750 mg 7-11 tablet by ity o f tablet 00:00: mouth 4 [place] (four) Medical times Branch daily. methocarbam 2020-0 Yes [id number] 750mg Take 1 [facility] oL 750 mg 7-11 tablet by ity o f tablet 00:00: mouth [address] [place] [address] (four) Medical times Branch daily. methocarbam 2020-0 Yes [id number] 750mg Take 1 [facility] oL 750 mg 7-11 tablet by ity o f tablet 00:00: mouth [address] [place] [address] (four) Medical times Branch daily. methocarbam 2020-0 Yes [id number] 750mg Take 1 [facility] oL 750 mg 7-11 tablet by ity o f tablet 00:00: mouth [address] [place] [address] (four) Medical times Branch daily. methocarbam 2020-0 Yes [id number] 750mg Take 1 [facility] oL 750 mg 7-11 tablet by ity o f tablet 00:00: mouth [address] [place] [address] (four) Medical times Branch daily. methocarbam 2020-0 Yes [id number] 750mg Take 1 [facility] oL 750 mg 7-11 tablet by ity o f tablet 00:00: mouth [address] [place] [address] (four) Medical times Branch daily. methocarbam 2020-0 Yes [id number] 750mg Take 1 [facility] oL 750 mg 7-11 tablet by ity o f tablet 00:00: mouth 4 [place] (four) Medical times Branch daily. methocarbam 2020-0 Yes [id number] 750mg Take 1 [facility] oL 750 mg 7-11 tablet by ity o f tablet 00:00: mouth (four) Medical times Branch daily. methocarbam 2020-0 Yes [id number] 750mg Take 1 [facility] oL 750 mg 7-11 tablet by ity o f tablet 00:00: mouth (four) [facility] times [facility] daily. methocarbam 2020-0 Yes [id number] 750mg Take 1 [facility] 750 mg 7-11 tablet by [facility] o f tablet 00:00: mouth (four) [facility] times [facility] daily. methocarbam 2020-0 Yes [id number] 750mg Take 1 [facility] 750 mg 7-11 tablet by [facility] o f tablet 00:00: mouth (four) Medical times [facility] daily. methocarbam 2020-0 Yes [id number] 750mg Take 1 [facility] 750 mg 7-11 tablet by [facility] o f tablet 00:00: mouth (four) Medical times [facility] daily. methocarbam 2020-0 Yes [id number] 750mg Take 1 [facility] 750 mg 7-11 tablet by [facility] o f tablet 00:00: mouth (four) Medical times Branch daily. methocarbam 2020-0 Yes [id number] 750mg Take 1 [facility] 750 mg 7-11 tablet by [facility] o f tablet 00:00: mouth (four) Medical times Branch daily. methocarbam 2020-0 Yes [id number] 750mg Take 1 [facility] 750 mg 7-11 tablet by [facility] o f tablet 00:00: mouth (four) Medical times [facility] daily. methocarbam 2020-0 Yes [id number] 750mg Take 1 [facility] 750 mg 7-11 tablet by [facility]y o f tablet 00:00: mouth (four) [facility] times [facility] daily. methocarbam 2020-0 Yes [id number] 750mg Take 1 [facility] 750 mg 7-11 tablet by [facility]y o f tablet 00:00: mouth (four) Medical times Branch daily. methocarbam 2020-0 Yes [id number] 750mg Take 1 [facility] 750 mg 7-11 tablet by [facility] o f tablet 00:00: mouth (four) Medical times Branch daily. methocarbam 2020-0 Yes [id number] 750mg Take 1 [facility] 750 mg 7-11 tablet by [facility] o f tablet 00:00: mouth (four) Medical times Branch daily. methocarbam 2020-0 Yes [id number] 750mg Take 1 [facility] 750 mg 7-11 tablet by [facility] o f tablet 00:00: mouth (four) Medical times [facility] daily. methocarbam 2020-0 Yes [id number] 750mg Take 1 [facility] 750 mg 7-11 tablet by [facility] o f tablet 00:00: mouth (four) Medical times [facility] daily. methocarbam 2020-0 Yes [id number] 750mg Take 1 [facility] 750 mg 7-11 tablet by [facility] o f tablet 00:00: mouth (four) Medical times [facility] daily. methocarbam 2020-0 Yes [id number] 750mg Take 1 [facility] 750 mg 7-11 tablet by [facility] o f tablet 00:00: mouth (four) Medical times [facility] daily. methocarbam 2020-0 Yes [id number] 750mg Take 1 [facility] 750 mg 7-11 tablet by [facility] o f tablet 00:00: mouth (four) [facility] times [facility] daily. methocarbam 2020-0 Yes [id number] 750mg Take 1 [facility] 750 mg 7-11 tablet by [facility] o f tablet 00:00: mouth (four) [facility] times [facility] daily. methocarbam 2020-0 Yes [id number] 750mg Take 1 [facility] 750 mg 7-11 tablet by [facility] o f tablet 00:00: mouth (four) [facility] times [facility] daily. methocarbam 2020-0 Yes [id number] 750mg Take 1 [facility] 750 mg 7-11 tablet by [facility] o f tablet 00:00: mouth (four) Medical times [facility] daily. methocarbam 2020-0 Yes [id number] 750mg Take 1 [facility] 750 mg 7-11 tablet by [facility] o f tablet 00:00: mouth (four) Medical times [facility] daily. methocarbam 2020-0 Yes [id number] 750mg Take 1 [facility] 750 mg 7-11 tablet by [facility] o f tablet 00:00: mouth (four) Medical times [facility] daily. methocarbam 2020-0 Yes [id number] 750mg Take 1 [facility] 750 mg 7-11 tablet by [facility] o f tablet 00:00: mouth (four) Medical times Branch daily. methocarbam 2020-0 Yes [id number] 750mg Take 1 [facility] 750 mg 7-11 tablet by [facility] o f tablet 00:00: mouth (four) Medical times [facility] daily. methocarbam 2020-0 Yes [id number] 750mg Take 1 [facility] 750 mg 7-11 tablet by [facility] o f tablet 00:00: mouth (four) [facility] times [facility] daily. methocarbam 2020-0 Yes [id number] 750mg Take 1 [facility] 750 mg 7-11 tablet by [facility] o f tablet 00:00: mouth (four) [facility] times [facility] daily. methocarbam 2020-0 Yes [id number] 750mg Take 1 [facility] 750 mg 7-11 tablet by [facility] o f tablet 00:00: mouth (four) [facility] times [facility] daily. methocarbam 2020-0 Yes [id number] 750mg Take 1 [facility] 750 mg 7-11 tablet by [facility] o f tablet 00:00: mouth (four) [facility] times [facility] daily. methocarbam 2020-0 Yes [id number] 750mg Take 1 [facility] 750 mg 7-11 tablet by [facility] o f tablet 00:00: mouth (four) [facility] times [facility] daily. methocarbam 2020-0 Yes [id number] 750mg Take 1 [facility] 750 mg 7-11 tablet by [facility] o f tablet 00:00: mouth (four) Medical times [facility] daily. methocarbam 2020-0 Yes [id number] 750mg Take 1 [facility] 750 mg 7-11 tablet by [facility] o f tablet 00:00: mouth (four) Medical times [facility] daily. methocarbam 1-0 Yes [id number] 750mg Take 1 [facility] 750 mg 7-11 tablet by [facility] o f tablet 00:00: mouth (four) Medical times [facility] daily. methocarbam 1-0 Yes [id number] 750mg Take 1 [facility] 750 mg 7-11 tablet by [facility] o f tablet 00:00: mouth (four) Medical times [facility] daily. methocarbam 2020-0 Yes [id number] 750mg Take 1 [facility] 750 mg 7-11 tablet by [facility] o f tablet 00:00: mouth (four) Medical times [facility] daily. methocarbam 2020-0 Yes [id number] 750mg Take 1 [facility] 750 mg 7-11 tablet by [facility] o f tablet 00:00: mouth (four) Medical times [facility] daily. methocarbam 2020-0 Yes [id number] 750mg Take 1 [facility] 750 mg 7-11 tablet by [facility] o f tablet 00:00: mouth (four) Medical times [facility] daily. methocarbam 2020-0 Yes [id number] 750mg Take 1 [facility] 750 mg 7-11 tablet by [facility] o f tablet 00:00: mouth (four) Medical times [facility] daily. methocarbam 2020-0 Yes [id number] 750mg Take 1 [facility] 750 mg 7-11 tablet by [facility] o f tablet 00:00: mouth (four) Medical times [facility] daily. methocarbam 2020-0 Yes [id number] 750mg Take 1 [facility] 750 mg 7-11 tablet by [facility] o f tablet 00:00: mouth (four) Medical times [facility] daily. methocarbam 2020-0 Yes [id number] 750mg Take 1 [facility] 750 mg 7-11 tablet by [facility] o f tablet 00:00: mouth (four) Medical times [facility] daily. methocarbam 2020-0 Yes [id number] 750mg Take 1 [facility] 750 mg 7-11 tablet by [facility] o f tablet 00:00: mouth (four) Medical times [facility] daily. methocarbam 2020-0 Yes [id number] 750mg Take 1 [facility] 750 mg 7-11 tablet by [facility] o f tablet 00:00: mouth (four) Medical times [facility] daily. methocarbam 1-0 Yes [id number] 750mg Take 1 [facility] 750 mg 7-11 tablet by [facility] o f tablet 00:00: mouth (four) Medical times [facility] daily. methocarbam 2020-0 Yes [id number] 750mg Take 1 [facility] 750 mg 7-11 tablet by [facility] o f tablet 00:00: mouth (four) Medical times [facility] daily. methocarbam 1-0 Yes [id number] 750mg Take 1 [facility] 750 mg 7-11 tablet by ity o f tablet 00:00: mouth 4 ([facility]) Medical times Branch daily. methocarbam 1-0 Yes [id number] 750mg Take 1 [facility] o[facility] 750 mg 7-11 tablet by ity o f tablet 00:00: mouth 4 ([facility]) Medical times Branch daily. methocarbam 1-0 Yes [id number] 750mg Take 1 [facility] o[facility] 750 mg 7-11 tablet by ity o f tablet 00:00: mouth 4 (four) Medical times Branch daily. methocarbam 1-0 Yes [id number] 750mg Take 1 [facility] o[facility] 750 mg 7-11 tablet by ity o f tablet 00:00: mouth 4 [place] ([facility]) Medical times Branch daily. methocarbam 1-0 Yes [id number] 750mg Take 1 [facility] o[facility] 750 mg 7-11 tablet by ity o f tablet 00:00: mouth 4 [place] ([facility]) Medical times Branch daily. etodolac 2020-0 Yes [facility] 500 mg 6-28 ity of tablet 00:00: [place] [facility] etodolac 1-0 Yes [facility] 500 mg 6-28 ity of tablet 00:00: [place] [facility] etodolac 2020-0 Yes [facility] 500 mg 6-28 ity of tablet 00:00: [place] [facility] etodolac 1-0 Yes [facility] 500 mg 6-28 ity of tablet 00:00: [place] [facility] etodolac 1-0 Yes [facility] 500 mg 6-28 ity of tablet 00:00: [place] [facility] etodolac 1-0 Yes [facility] 500 mg 6-28 ity of tablet 00:00: [place] [facility] etodolac 1-0 Yes [facility] 500 mg 6-28 ity of tablet 00:00: [place] [facility] etodolac 1-0 Yes [facility] 500 mg 6-28 ity of tablet 00:00: [place] [facility] etodolac 1-0 Yes [facility] 500 mg 6-28 ity of tablet 00:00: [place] [facility] etodolac 1-0 Yes [facility] 500 mg 6-28 ity of tablet 00:00: [place] [facility] [place] etodolac 2020-0 Yes [facility] 500 mg 6-28 ity of tablet 00:00: [place] [facility] etodolac 2020-0 Yes [facility] 500 mg 6-28 ity of tablet 00:00: [place] [facility] etodolac 2020-0 Yes [facility] 500 mg 6-28 ity of tablet 00:00: [place] [facility] etodolac 2020-0 Yes [facility] 500 mg 6-28 ity of tablet 00:00: [place] [facility] etodolac 2020-0 Yes [facility] 500 mg 6-28 ity of tablet 00:00: [address] etodolac 2020-0 Yes [facility] 500 mg 6-28 ity of tablet 00:00: [address] etodolac 2020- Yes [facility] 500 mg 6-28 ity of tablet 00:00: [address] etodolac 2020- Yes [facility] 500 mg 6-28 ity of tablet 00:00: [address] etodolac 2020-0 Yes [facility] 500 mg 6-28 ity of tablet 00:00: [address] etodolac 2020- Yes [facility] 500 mg 6-28 ity of tablet 00:00: [address] etodmendonc 2020-0 Yes [facility] 500 mg 6-28 ity of tablet 00:00: [address] etodolac 2020-0 Yes [facility] 500 mg 6-28 ity of tablet 00:00: [address] etodolac 2020-0 Yes [facility] 500 mg 6-28 ity of tablet 00:00: [place] [facility] etodolac 2020-0 Yes [facility] 500 mg 6-28 ity of tablet 00:00: [place] [address] [facility] [place] etodolac 2020-0 Yes [facility] 500 mg 6-28 ity of tablet 00:00: [address] etodolac 2020-0 Yes [facility] 500 mg 6-28 ity of tablet 00:00: [address] etodolac 2020-0 Yes [facility] 500 mg 6-28 ity of tablet 00:00: [place] [address] [facility] [place] etodolac 2020-0 Yes [facility] 500 mg 6-28 ity of tablet 00:00: [place] [address] [facility] [place] etodolac 2020-0 Yes [facility] 500 mg 6-28 ity of tablet 00:00: [place] [facility] etodolac 2020-0 Yes [facility] 500 mg 6-28 ity of tablet 00:00: [place] [facility] [place] etodolac 2020-0 Yes [facility] 500 mg 6-28 ity of tablet 00:00: [place] [address] [facility] [place] etodolac 2020-0 Yes [facility] 500 mg 6-28 ity of tablet 00:00: [place] [facility] etodolac 2020-0 Yes [facility] 500 mg 6-28 ity of tablet 00:00: [place] [facility] [place] etodolac 2020-0 Yes [facility] 500 mg 6-28 ity of tablet 00:00: [place] [address] [facility] [place] etodolac 2020-0 Yes [facility] 500 mg 6-28 ity of tablet 00:00: [address] etodolac 2020-0 Yes [facility] 500 mg 6-28 ity of tablet 00:00: [place] [address] [facility] [place] etodolac 2020-0 Yes [facility] 500 mg 6-28 ity of tablet 00:00: [address] etodolac 2020-0 Yes [facility] 500 mg 6-28 ity of tablet 00:00: [address] etodolac 2020-0 Yes [facility] 500 mg 6-28 ity of tablet 00:00: [place] [address] [facility] [place] etodolac 2020-0 Yes [facility] 500 mg 6-28 ity of tablet 00:00: [place] [address] [facility] [place] etodolac 2020-0 Yes [facility] 500 mg 6-28 ity of tablet 00:00: [place] [address] [facility] etodolac 2020-0 Yes [facility] 500 mg 6-28 ity of tablet 00:00: [place] [address] [facility] [place] etodolac 2020-0 Yes [facility] 500 mg 6-28 ity of tablet 00:00: [place] [address] [facility] etodolac 2020-0 Yes [facility] 500 mg 6-28 ity of tablet 00:00: [place] [address] [facility] [place] etodolac 2020-0 Yes [facility] 500 mg 6-28 ity of tablet 00:00: [place] [address] [facility] etodolac 2020-0 Yes [facility] 500 mg 6-28 ity of tablet 00:00: [place] [address] [facility] Branch etodolac 2020-0 Yes [facility] 500 mg 6-28 ity of tablet 00:00: [place] [address] [facility] Branch etodolac 2021-0 Yes [facility] 500 [...] tablet 00:00: Medical Branch GABAPENTIN 2021-0 Yes [id number] TAKE 1 U nivers 100 mg 5-24 CAPSULE 3 ity of capsule 00:00: TIMES A Medical Branch GABAPENTIN 2021-0 Yes [id number] TAKE 1 U nivers 100 mg 5-24 CAPSULE 3 ity of capsule 00:00: TIMES A Medical Branch GABAPENTIN 2021-0 Yes [id number] TAKE 1 U nivers 100 mg 5-24 CAPSULE 3 ity of capsule 00:00: TIMES A Medical Branch GABAPENTIN 2021-0 Yes [id number] TAKE 1 U nivers 100 mg 5-24 CAPSULE 3 ity of capsule 00:00: TIMES A Medical Branch GABAPENTIN 2021-0 Yes [id number] TAKE 1 U nivers 100 mg 5-24 CAPSULE 3 ity of capsule 00:00: TIMES A Medical Branch GABAPENTIN 2021-0 Yes [id number] TAKE 1 U nivers 100 mg 5-24 CAPSULE 3 ity of capsule 00:00: TIMES A Medical Branch GABAPENTIN 2021-0 Yes [id number] TAKE 1 U nivers 100 mg 5-24 CAPSULE 3 ity of capsule 00:00: TIMES A Medical Branch GABAPENTIN 2021-0 Yes [id number] TAKE 1 U nivers 100 mg 5-24 CAPSULE 3 ity of capsule 00:00: TIMES A Medical Branch GABAPENTIN 2021-0 Yes [id number] TAKE 1 U nivers 100 mg 5-24 CAPSULE 3 ity of capsule 00:00: TIMES A Medical Branch GABAPENTIN 2021-0 Yes [id number] TAKE 1 U nivers 100 mg 5-24 CAPSULE 3 ity of capsule 00:00: TIMES A Medical Branch GABAPENTIN 2021-0 Yes [id number] TAKE 1 U nivers 100 mg 5-24 CAPSULE 3 ity of capsule 00:00: TIMES A Medical Branch GABAPENTIN 2021-0 Yes [id number] TAKE 1 U nivers 100 mg 5-24 CAPSULE 3 ity of capsule 00:00: TIMES A Medical Branch GABAPENTIN 2021-0 Yes [id number] TAKE 1 U nivers 100 mg 5-24 CAPSULE 3 ity of capsule 00:00: TIMES A Medical Branch GABAPENTIN 2021-0 Yes [id number] TAKE 1 U nivers 100 mg 5-24 CAPSULE 3 ity of capsule 00:00: TIMES A Medical Branch GABAPENTIN 2021-0 Yes [id number] TAKE 1 U nivers 100 mg 5-24 CAPSULE 3 ity of capsule 00:00: TIMES A Medical Branch GABAPENTIN 2021-0 2022- No [id number] TAKE 1 [facility] 100 mg 5-24 12-11 CAPSULE 3 ity of capsule 00:00: 00:00 TIMES A 00 : Medical Branch ACCU-CHEK 2019-1 Yes Use to [employer] GUIDE 1-14 check ity of GLUCOSE 00:00: glucose 3X [place] METER Misc 00 daily. Medical DX:E11.65 Branch ACCU-CHEK 2019-1 Yes Use to [employer] GUIDE 1-14 check ity of GLUCOSE 00:00: glucose 3[place] MET[place] Misc 00 daily. Medical DX:E11.65 Branch ACCU-CHEK 2019-1 Yes Use to [employer] GUIDE 1-14 check ity of GLUCOSE 00:00: glucose 3X [place] MET[place] Misc 00 daily. Medical DX:E11.65 Branch ACCU-CHEK 2019-1 Yes Use to [employer] GUIDE 1-14 check ity of GLUCOSE 00:00: glucose 3X [place] MET[place] Misc 00 daily. Medical DX:E11.65 Branch ACCU-CHEK 2019-1 Yes Use to [employer] GUIDE 1-14 check ity of GLUCOSE 00:00: glucose 3X [place] MET[place] Misc 00 daily. Medical DX:E11.65 Branch ACCU-CHEK 2019-1 Yes Use to [employer] GUIDE 1-14 check ity of GLUCOSE 00:00: glucose 3X [place] MET[place] Misc 00 daily. Medical DX:E11.65 Branch ACCU-CHEK 2019-1 Yes Use to [employer] GUIDE 1-14 check ity of GLUCOSE 00:00: glucose 3X [place] MET[place] Misc 00 daily. Medical DX:E11.65 Branch ACCU-CHEK 2019-1 Yes Use to [employer] GUIDE 1-14 check ity of GLUCOSE 00:00: glucose 3X [place] METER Misc 00 daily. Medical DX:E11.65 Branch ACCU-CHEK 2019-1 Yes Use to [employer] GUIDE 1-14 check ity of GLUCOSE 00:00: glucose 3X [place] METER Misc 00 daily. Medical DX:E11.65 Branch ACCU-CHEK 2019-1 Yes Use to [employer] GUIDE 1-14 check ity of GLUCOSE 00:00: glucose 3X [place] METER Misc 00 daily. Medical DX:E11.65 Branch ACCU-CHEK 2019-1 Yes Use to [employer] GUIDE 1-14 check ity of GLUCOSE 00:00: glucose 3X [place] METER Misc 00 daily. Medical DX:E11.65 Branch ACCU-CHEK 2019-1 Yes Use to [employer] GUIDE 1-14 check ity of GLUCOSE 00:00: glucose 3X [place] METER Misc 00 daily. Medical DX:E11.65 Branch ACCU-CHEK 2019-1 Yes Use to [employer] GUIDE 1-14 check ity of GLUCOSE 00:00: glucose 3[place] METER Misc 00 daily. Medical DX:E11.65 Branch ACCU-CHEK 2019-1 Yes Use to [employer] GUIDE 1-14 check ity of GLUCOSE 00:00: glucose 3[place] METER Misc 00 daily. Medical DX:E11.65 Branch ACCU-CHEK 2019-1 Yes Use to [employer] GUIDE 1-14 check ity of GLUCOSE 00:00: glucose 3[place] METER Misc 00 daily. Medical DX:E11.65 Branch ACCU-CHEK 2019-1 Yes Use to [employer] GUIDE 1-14 check ity of GLUCOSE 00:00: glucose 3X [place] METER Misc 00 daily. Medical DX:E11.65 Branch ACCU-CHEK 2019-1 Yes Use to [employer] GUIDE 1-14 check ity of GLUCOSE 00:00: glucose 3X [place] METER Misc 00 daily. Medical DX:E11.65 Branch ACCU-CHEK 2019-1 Yes Use to [employer] GUIDE 1-14 check ity of GLUCOSE 00:00: glucose 3X [place] METER Misc 00 daily. Medical DX:E11.65 Branch ACCU-CHEK 2019-1 Yes Use to [employer] GUIDE 1-14 check ity of GLUCOSE 00:00: glucose 3X [place] METER Misc 00 daily. Medical DX:E11.65 Branch ACCU-CHEK 2019-1 Yes Use to [employer] GUIDE 1-14 check ity of GLUCOSE 00:00: glucose 3[place] METER Misc 00 daily. Medical DX:E11.65 Branch ACCU-CHEK 2019-1 Yes Use to [employer] GUIDE 1-14 check ity of GLUCOSE 00:00: glucose 3X [place] METER Misc 00 daily. Medical DX:E11.65 Branch ACCU-CHEK 2019-1 Yes Use to [employer] GUIDE 1-14 check ity of GLUCOSE 00:00: glucose 3X [place] METER Misc 00 daily. Medical DX:E11.65 Branch ACCU-CHEK 2019- Yes Use to [employer] GUIDE 1-14 check ity of GLUCOSE 00:00: glucose 3X [place] METER Misc 00 daily. Medical DX:E11.65 Branch ACCU-CHEK 2019-1 Yes Use to [employer] GUIDE 1-14 check ity of GLUCOSE 00:00: glucose 3X [place] METER Misc 00 daily. Medical DX:E11.65 Branch ACCU-CHEK 2019-1 Yes Use to [employer] GUIDE 1-14 check ity of GLUCOSE 00:00: glucose 3X [place] METER Misc 00 daily. Medical DX:E11.65 Branch ACCU-CHEK 2019-1 Yes Use to [employer] GUIDE 1-14 check ity of GLUCOSE 00:00: glucose 3X [place] METER Misc 00 daily. Medical DX:E11.65 Branch ACCU-CHEK 2019-1 Yes Use to [employer] GUIDE 1-14 check ity of GLUCOSE 00:00: glucose 3X [place] METER Misc 00 daily. Medical DX:E11.65 Branch ACCU-CHEK 2019-1 Yes Use to [employer] GUIDE 1-14 check ity of GLUCOSE 00:00: glucose 3X [place] METER Misc 00 daily. Medical DX:E11.65 Branch ACCU-CHEK 2019-1 Yes Use to [employer] GUIDE 1-14 check ity of GLUCOSE 00:00: glucose 3X [place] METER Misc 00 daily. Medical DX:E11.65 Branch ACCU-CHEK 2019-1 Yes Use to [employer] GUIDE 1-14 check ity of GLUCOSE 00:00: glucose 3X [place] METER Misc 00 daily. Medical DX:E11.65 Branch ACCU-CHEK 2019-1 Yes Use to [employer] GUIDE 1-14 check ity of GLUCOSE 00:00: glucose 3X [place] METER Misc 00 daily. Medical DX:E11.65 Branch ACCU-CHEK 2019-1 Yes Use to [employer] GUIDE 1-14 check ity of GLUCOSE 00:00: glucose 3X [place] METER Misc 00 daily. Medical DX:E11.65 Branch ACCU-CHEK 2019-1 Yes Use to [employer] GUIDE 1-14 check ity of GLUCOSE 00:00: glucose 3X [place] METER Misc 00 daily. Medical DX:E11.65 Branch ACCU-CHEK 2019-1 Yes Use to [employer] GUIDE 1-14 check ity of GLUCOSE 00:00: glucose 3X [place] METER Misc 00 daily. Medical DX:E11.65 Branch ACCU-CHEK 2019-1 Yes Use to [employer] GUIDE 1-14 check ity of GLUCOSE 00:00: glucose 3X [place] METER Misc 00 daily. Medical DX:E11.65 Branch ACCU-CHEK 2019-1 Yes Use to [employer] GUIDE 1-14 check ity of GLUCOSE 00:00: glucose 3X [place] METER Misc 00 daily. Medical DX:E11.65 Branch ACCU-CHEK 2019-1 Yes Use to [employer] GUIDE 1-14 check ity of GLUCOSE 00:00: glucose 3X [place] METER Misc 00 daily. Medical DX:E11.65 Branch ACCU-CHEK 2019- Yes Use to [employer] GUIDE 1-14 check ity of GLUCOSE 00:00: glucose 3X [place] METER Misc 00 daily. Medical DX:E11.65 Branch ACCU-CHEK 2019- Yes Use to [employer] GUIDE 1-14 check ity of GLUCOSE 00:00: glucose 3X [place] METER Misc 00 daily. Medical DX:E11.65 Branch ACCU-CHEK 2019- Yes Use to [employer] GUIDE 1-14 check ity of GLUCOSE 00:00: glucose 3X [place] METER Misc 00 daily. Medical DX:E11.65 Branch ACCU-CHEK 2019- Yes Use to [employer] GUIDE 1-14 check ity of GLUCOSE 00:00: glucose 3X [place] METER Misc 00 daily. Medical DX:E11.65 Branch ACCU-CHEK 2019- Yes Use to [employer] GUIDE 1-14 check ity of GLUCOSE 00:00: glucose 3X [place] METER Misc 00 daily. Medical DX:E11.65 Branch ACCU-CHEK 2019- Yes Use to [employer] GUIDE 1-14 check ity of GLUCOSE 00:00: glucose 3X [place] METER Misc 00 daily. Medical DX:E11.65 Branch ACCU-CHEK 2019- Yes Use to [employer] GUIDE 1-14 check ity of GLUCOSE 00:00: glucose 3X [place] METER Misc 00 daily. Medical DX:E11.65 Branch ACCU-CHEK 2019- Yes Use to [employer] GUIDE 1-14 check ity of GLUCOSE 00:00: glucose 3X [place] METER Misc 00 daily. Medical DX:E11.65 Branch ACCU-CHEK 2019- Yes Use to [employer] GUIDE 1-14 check ity of GLUCOSE 00:00: glucose 3X [place] METER Misc 00 daily. Medical DX:E11.65 Branch ACCU-CHEK 2019-1 Yes Use to [employer] GUIDE 1-14 check ity of GLUCOSE 00:00: glucose 3X [place] METER Misc 00 daily. Medical DX:E11.65 Branch ACCU-CHEK 2019- Yes Use to [employer] GUIDE 1-14 check ity of GLUCOSE 00:00: glucose 3X [place] METER Misc 00 daily. Medical DX:E11.65 Branch ACCU-CHEK 2019-1 Yes Use to [employer] GUIDE 1-14 check ity of GLUCOSE 00:00: glucose 3X [place] METER Misc 00 daily. Medical DX:E11.65 Branch ACCU-CHEK 2019- Yes Use to [employer] GUIDE 1-14 check ity of GLUCOSE 00:00: glucose 3X [place] METER Misc 00 daily. Medical DX:E11.65 Branch ACCU-CHEK 2019- Yes Use to [employer] GUIDE 1-14 check ity of GLUCOSE 00:00: glucose 3X [place] METER Misc 00 daily. Medical DX:E11.65 Branch ACCU-CHEK 2019- Yes Use to [employer] GUIDE 1-14 check ity of GLUCOSE 00:00: glucose 3X [place] METER Misc 00 daily. Medical DX:E11.65 Branch ACCU-CHEK 2019- Yes Use to [employer] GUIDE 1-14 check ity of GLUCOSE 00:00: glucose 3X [place] METER Misc 00 daily. Medical DX:E11.65 Branch ACCU-CHEK 2019- Yes Use to [employer] GUIDE 1-14 check ity of GLUCOSE 00:00: glucose 3X [place] METER Misc 00 daily. Medical DX:E11.65 Branch ACCU-CHEK 2018- Yes Use to [employer] GUIDE 1-14 check ity of GLUCOSE 00:00: glucose 3X [place] METER Misc 00 daily. Medical DX:E11.65 Branch ACCU-CHEK 2018- Yes Use to [employer] GUIDE 1-14 check ity of GLUCOSE 00:00: glucose 3X [place] METER Misc 00 daily. Medical DX:E11.65 Branch Immunizations Ordered Filled Immunization Date Status Comments Sour e Immunization Name Name SARS-COV-2 COVID-19 2020-09-06 Completed [facility] of PFIZER VACCINE 00:00:00 [facility] SARS-COV-2 COVID-19 2020-09-06 Completed [facility]ive rs[facility] of PFIZER VACCINE 00:00:00 [facility] SARS-COV-2 COVID-19 2020-09-06 Completed Unive rsity of PFIZER VACCINE 00:00:00 [facility] SARS-COV-2 COVID-19 2020-09-06 Completed Unive rsity of PFIZER VACCINE 00:00:00 [place] [facility] SARS-COV-2 COVID-19 2020-09-06 Completed [facility]ive rsity of PFIZER VACCINE 00:00:00 [facility] SARS-COV-2 COVID-19 2020-09-06 Completed [facility]ive rsity of PFIZER VACCINE 00:00:00 [facility] SARS-COV-2 COVID-19 2020-09-06 Completed [facility]ive rsity of PFIZER VACCINE 00:00:00 [facility] SARS-COV-2 COVID-19 2020-09-06 Completed [facility]ive rs[facility] of PFIZER VACCINE 00:00:00 [facility] SARS-COV-2 COVID-19 2020-09-06 Completed [facility]ive rsity of PFIZER VACCINE 00:00:00 [facility] SARS-COV-2 COVID-19 2020-09-06 Completed [facility]ive rsity of PFIZER VACCINE 00:00:00 [facility] SARS-COV-2 COVID-19 2020-09-06 Completed Unive rsity of PFIZER VACCINE 00:00:00 [facility] SARS-COV-2 COVID-19 2020-09-06 Completed Unive rsity of PFIZER VACCINE 00:00:00 [facility] SARS-COV-2 COVID-19 2020-09-06 Completed [facility]ive rsity of PFIZER VACCINE 00:00:00 [facility] SARS-COV-2 COVID-19 2020-09-06 Completed Unive rsity of PFIZER VACCINE 00:00:00 [facility] SARS-COV-2 COVID-19 2020-09-06 Completed Unive rsity of PFIZER VACCINE 00:00:00 [facility] SARS-COV-2 COVID-19 2020-09-06 Completed Unive rsity of PFIZER VACCINE 00:00:00 [facility] SARS-COV-2 COVID-19 2020-09-06 Completed Unive rsity of PFIZER VACCINE 00:00:00 [facility] SARS-COV-2 COVID-19 2020-09-06 Completed [facility]ive rsity of PFIZER VACCINE 00:00:00 [facility] SARS-COV-2 COVID-19 2020-09-06 Completed [facility]ive rsity of PFIZER VACCINE 00:00:00 [facility] SARS-COV-2 COVID-19 2020-09-06 Completed [facility]ive rsity of PFIZER VACCINE 00:00:00 [facility] SARS-COV-2 COVID-19 2020-09-06 Completed Unive rsity of PFIZER VACCINE 00:00:00 [facility] SARS-COV-2 COVID-19 2020-09-06 Completed [facility]ive rsity of PFIZER VACCINE 00:00:00 [facility] SARS-COV-2 COVID-19 2020-09-06 Completed [facility] PFIZER VACCINE 00:00:00 [facility] SARS-COV-2 COVID-19 2020-09-06 Completed [facility] PFIZER VACCINE 00:00:00 [facility] SARS-COV-2 COVID-19 2020-09-06 Completed [facility] PFIZER VACCINE 00:00:00 [facility] SARS-COV-2 COVID-19 2020-09-06 Completed [facility] PFIZER VACCINE 00:00:00 [facility] SARS-COV-2 COVID-19 2020-09-06 Completed [facility] PFIZER VACCINE 00:00:00 [facility] SARS-COV-2 COVID-19 2020-09-06 Completed [facility] PFIZER VACCINE 00:00:00 [facility] SARS-COV-2 COVID-19 2020-09-06 Completed [facility] PFIZER VACCINE 00:00:00 [facility] SARS-COV-2 COVID-19 2020-09-06 Completed [facility] PFIZER VACCINE 00:00:00 [facility] SARS-COV-2 COVID-19 2020-09-06 Completed [facility] PFIZER VACCINE 00:00:00 [facility] SARS-COV-2 COVID-19 2020-09-06 Completed [facility] PFIZER VACCINE 00:00:00 [facility] SARS-COV-2 COVID-19 2020-09-06 Completed [facility] PFIZER VACCINE 00:00:00 [facility] SARS-COV-2 COVID-19 2020-09-06 Completed [facility] PFIZER VACCINE 00:00:00 [facility] SARS-COV-2 COVID-19 2020-09-06 Completed [facility] PFIZER VACCINE 00:00:00 [facility] SARS-COV-2 COVID-19 2020-09-06 Completed [facility] PFIZER VACCINE 00:00:00 [facility] SARS-COV-2 COVID-19 2020-09-06 Completed [facility] PFIZER VACCINE 00:00:00 [facility] SARS-COV-2 COVID-19 2020-09-06 Completed [facility] PFIZER VACCINE 00:00:00 [facility] SARS-COV-2 COVID-19 2020-09-06 Completed [facility] PFIZER VACCINE 00:00:00 [facility] SARS-COV-2 COVID-19 2020-09-06 Completed [facility] PFIZER VACCINE 00:00:00 [facility] SARS-COV-2 COVID-19 2020-09-06 Completed [facility] PFIZER VACCINE 00:00:00 [facility] SARS-COV-2 COVID-19 2020-09-06 Completed [facility] PFIZER VACCINE 00:00:00 [facility] SARS-COV-2 COVID-19 2020-09-06 Completed [facility] PFIZER VACCINE 00:00:00 [facility] SARS-COV-2 COVID-19 2020-09-06 Completed [facility] PFIZER VACCINE 00:00:00 [facility] SARS-COV-2 COVID-19 2020-09-06 Completed [facility] PFIZER VACCINE 00:00:00 [facility] SARS-COV-2 COVID-19 2020-09-06 Completed [facility] PFIZER VACCINE 00:00:00 [facility] SARS-COV-2 COVID-19 2020-09-06 Completed [facility] PFIZER VACCINE 00:00:00 [facility] SARS-COV-2 COVID-19 2020-09-06 Completed [facility] PFIZER VACCINE 00:00:00 [facility] SARS-COV-2 COVID-19 2020-09-06 Completed [facility] PFIZER VACCINE 00:00:00 [facility] SARS-COV-2 COVID-19 2020-09-06 Completed [facility] PFIZER VACCINE 00:00:00 [facility] SARS-COV-2 COVID-19 2020-09-06 Completed [facility] PFIZER VACCINE 00:00:00 [facility] SARS-COV-2 COVID-19 2020-09-06 Completed [facility] PFIZER VACCINE 00:00:00 [facility] SARS-COV-2 COVID-19 2020-09-06 Completed [facility] PFIZER VACCINE 00:00:00 [facility] SARS-COV-2 COVID-19 2020-09-06 Completed [facility] PFIZER VACCINE 00:00:00 [facility] SARS-COV-2 COVID-19 2020-09-06 Completed [facility] PFIZER VACCINE 00:00:00 [facility] SARS-COV-2 COVID-19 2020-09-06 Completed [facility] PFIZER VACCINE 00:00:00 [facility] SARS-COV-2 COVID-19 2020-08-16 Completed [facility] PFIZER VACCINE 00:00:00 [facility] SARS-COV-2 COVID-19 2020-08-16 Completed [facility] PFIZER VACCINE 00:00:00 [facility] SARS-COV-2 COVID-19 2020-08-16 Completed [facility] PFIZER VACCINE 00:00:00 [facility] SARS-COV-2 COVID-19 2020-08-16 Completed [facility] PFIZER VACCINE 00:00:00 [facility] SARS-COV-2 COVID-19 2020-08-16 Completed [facility] PFIZER VACCINE 00:00:00 [facility] SARS-COV-2 COVID-19 2020-08-16 Completed [facility] PFIZER VACCINE 00:00:00 [facility] SARS-COV-2 COVID-19 2020-08-16 Completed [facility] PFIZER VACCINE 00:00:00 [facility] SARS-COV-2 COVID-19 2020-08-16 Completed [facility] PFIZER VACCINE 00:00:00 [facility] SARS-COV-2 COVID-19 2020-08-16 Completed [facility] PFIZER VACCINE 00:00:00 [facility] SARS-COV-2 COVID-19 2020-08-16 Completed [facility] PFIZER VACCINE 00:00:00 [facility] SARS-COV-2 COVID-19 2020-08-16 Completed [facility] PFIZER VACCINE 00:00:00 [facility] SARS-COV-2 COVID-19 2020-08-16 Completed [facility] PFIZER VACCINE 00:00:00 [facility] SARS-COV-2 COVID-19 2020-08-16 Completed [facility] PFIZER VACCINE 00:00:00 [facility] SARS-COV-2 COVID-19 2020-08-16 Completed [facility] PFIZER VACCINE 00:00:00 [facility] SARS-COV-2 COVID-19 2020-08-16 Completed [facility] PFIZER VACCINE 00:00:00 [facility] SARS-COV-2 COVID-19 2020-08-16 Completed [facility] PFIZER VACCINE 00:00:00 [facility] SARS-COV-2 COVID-19 2020-08-16 Completed [facility] PFIZER VACCINE 00:00:00 [facility] SARS-COV-2 COVID-19 2020-08-16 Completed [facility] PFIZER VACCINE 00:00:00 [facility] SARS-COV-2 COVID-19 2020-08-16 Completed [facility] PFIZER VACCINE 00:00:00 [facility] SARS-COV-2 COVID-19 2020-08-16 Completed [facility] PFIZER VACCINE 00:00:00 [facility] SARS-COV-2 COVID-19 2020-08-16 Completed [facility] PFIZER VACCINE 00:00:00 [facility] SARS-COV-2 COVID-19 2020-08-16 Completed [facility] PFIZER VACCINE 00:00:00 [facility] SARS-COV-2 COVID-19 2020-08-16 Completed [facility] PFIZER VACCINE 00:00:00 [facility] SARS-COV-2 COVID-19 2020-08-16 Completed [facility] PFIZER VACCINE 00:00:00 [facility] SARS-COV-2 COVID-19 2020-08-16 Completed [facility] PFIZER VACCINE 00:00:00 [facility] SARS-COV-2 COVID-19 2020-08-16 Completed [facility] PFIZER VACCINE 00:00:00 [facility] SARS-COV-2 COVID-19 2020-08-16 Completed [facility] PFIZER VACCINE 00:00:00 [facility] SARS-COV-2 COVID-19 2020-08-16 Completed [facility] PFIZER VACCINE 00:00:00 [facility] SARS-COV-2 COVID-19 2020-08-16 Completed [facility] PFIZER VACCINE 00:00:00 [facility] SARS-COV-2 COVID-19 2020-08-16 Completed [facility] PFIZER VACCINE 00:00:00 [facility] SARS-COV-2 COVID-19 2020-08-16 Completed [facility] PFIZER VACCINE 00:00:00 [facility] SARS-COV-2 COVID-19 2020-08-16 Completed [facility] PFIZER VACCINE 00:00:00 [facility] SARS-COV-2 COVID-19 2020-08-16 Completed [facility] PFIZER VACCINE 00:00:00 [facility] SARS-COV-2 COVID-19 2020-08-16 Completed [facility] PFIZER VACCINE 00:00:00 [facility] SARS-COV-2 COVID-19 2020-08-16 Completed [facility] PFIZER VACCINE 00:00:00 [facility] SARS-COV-2 COVID-19 2020-08-16 Completed [facility] PFIZER VACCINE 00:00:00 [facility] SARS-COV-2 COVID-19 2020-08-16 Completed [facility] PFIZER VACCINE 00:00:00 [facility] SARS-COV-2 COVID-19 2020-08-16 Completed [facility] PFIZER VACCINE 00:00:00 [facility] SARS-COV-2 COVID-19 2020-08-16 Completed [facility] PFIZER VACCINE 00:00:00 [facility] SARS-COV-2 COVID-19 2020-08-16 Completed [facility] PFIZER VACCINE 00:00:00 [facility] SARS-COV-2 COVID-19 2020-08-16 Completed [facility] PFIZER VACCINE 00:00:00 [facility] SARS-COV-2 COVID-19 2020-08-16 Completed [facility] PFIZER VACCINE 00:00:00 [facility] SARS-COV-2 COVID-19 2020-08-16 Completed [facility] PFIZER VACCINE 00:00:00 [facility] SARS-COV-2 COVID-19 2020-08-16 Completed [facility] PFIZER VACCINE 00:00:00 [facility] SARS-COV-2 COVID-19 2020-08-16 Completed [facility] PFIZER VACCINE 00:00:00 [facility] SARS-COV-2 COVID-19 2020-08-16 Completed [facility] PFIZER VACCINE 00:00:00 [facility] SARS-COV-2 COVID-19 2020-08-16 Completed [facility] PFIZER VACCINE 00:00:00 [facility] SARS-COV-2 COVID-19 2020-08-16 Completed [facility] PFIZER VACCINE 00:00:00 [facility] SARS-COV-2 COVID-19 2020-08-16 Completed [facility] PFIZER VACCINE 00:00:00 [facility] SARS-COV-2 COVID-19 2020-08-16 Completed [facility] PFIZER VACCINE 00:00:00 [facility] SARS-COV-2 COVID-19 2020-08-16 Completed [facility] PFIZER VACCINE 00:00:00 [facility] SARS-COV-2 COVID-19 2020-08-16 Completed [facility] PFIZER VACCINE 00:00:00 [facility] SARS-COV-2 COVID-19 2020-08-16 Completed [facility] PFIZER VACCINE 00:00:00 [facility] SARS-COV-2 COVID-19 2020-08-16 Completed [facility] PFIZER VACCINE 00:00:00 [facility] SARS-COV-2 COVID-19 2020-08-16 Completed [facility] PFIZER VACCINE 00:00:00 [facility] SARS-COV-2 COVID-19 2020-08-16 Completed [facility] PFIZER VACCINE 00:00:00 [facility] Influenza Virus 2020-03-21 Completed [facility] Vaccine [facility] 00:00:00 [facility], Preserv and ABX Branc h Free 18-64 YRS Influenza Virus 2020-03-21 Completed [facility] Vaccine 00:00:00 [facility] Influenza Virus 2020-03-21 Completed [facility] Vaccine [facility] 00:00:00 [facility], Preserv and ABX Branc h Free 18-64 YRS Influenza Virus 2020-03-21 Completed [facility] Vaccine 00:00:00 [facility] Influenza Virus 2020-03-21 Completed [facility] Vaccine [facility] 00:00:00 [facility], Preserv and ABX Branc h Free 18-64 YRS Influenza Virus 2020-03-21 Completed [facility] Vaccine 00:00:00 [facility] Influenza Virus 2020-03-21 Completed [facility] Vaccine [facility] 00:00:00 [facility], Preserv and ABX Branc h Free 18-64 YRS Influenza Virus 2020-03-21 Completed [facility] Vaccine 00:00:00 [facility] Influenza Virus 2020-03-21 Completed [facility] Vaccine [facility] 00:00:00 [facility], Preserv and ABX Branc h Free 18-64 YRS Influenza Virus 2020-03-21 Completed [facility] Vaccine 00:00:00 [facility] Influenza Virus 2020-03-21 Completed [facility] Vaccine [facility] 00:00:00 [facility], Preserv and ABX Branc h Free 18-64 YRS Influenza Virus 2020-03-21 Completed [facility] Vaccine 00:00:00 [facility] Influenza Virus 2020-03-21 Completed [facility] Vaccine [facility] 00:00:00 [facility], Preserv and ABX Branc h Free 18-64 YRS Influenza Virus 2020-03-21 Completed [facility] Vaccine 00:00:00 [facility] Influenza Virus 2020-03-21 Completed [facility] Vaccine [facility] 00:00:00 [facility], Preserv and ABX Branc h Free 18-64 YRS Influenza Virus 2020-03-21 Completed [facility] Vaccine 00:00:00 [facility] Influenza Virus 2020-03-21 Completed [facility] Vaccine [facility] 00:00:00 [facility], Preserv and ABX Branc h Free 18-64 YRS Influenza Virus 2020-03-21 Completed [facility] Vaccine 00:00:00 [facility] Influenza Virus 2020-03-21 Completed [facility] Vaccine [facility] 00:00:00 [facility], Preserv and ABX Branc h Free 18-64 YRS Influenza Virus 2020-03-21 Completed [facility] Vaccine 00:00:00 [facility] Influenza Virus 2020-03-21 Completed [facility] Vaccine [facility] 00:00:00 [facility], Preserv and ABX Branc h Free 18-64 YRS Influenza Virus 2020-03-21 Completed [facility] Vaccine 00:00:00 [facility] Influenza Virus 2020-03-21 Completed [facility] Vaccine [facility] 00:00:00 [facility], Preserv and ABX Branc h Free 18-64 YRS Influenza Virus 2020-03-21 Completed [facility] Vaccine 00:00:00 [facility] Influenza Virus 2020-03-21 Completed [facility] Vaccine [facility] 00:00:00 [facility], Preserv and ABX Branc h Free 18-64 YRS Influenza Virus 2020-03-21 Completed [facility] Vaccine 00:00:00 [facility] Influenza Virus 2020-03-21 Completed [facility] Vaccine [facility] 00:00:00 [facility], Preserv and ABX Branc h Free 18-64 YRS Influenza Virus 2020-03-21 Completed [facility] Vaccine 00:00:00 [facility] Influenza Virus 2020-03-21 Completed [facility] Vaccine [facility] 00:00:00 [facility], Preserv and ABX Branc h Free 18-64 YRS Influenza Virus 2020-03-21 Completed [facility] Vaccine 00:00:00 [facility] Influenza Virus 2020-03-21 Completed [facility] Vaccine [facility] 00:00:00 [facility], Preserv and ABX Branc h Free 18-64 YRS Influenza Virus 2020-03-21 Completed [facility] Vaccine 00:00:00 [facility] Influenza Virus 2020-03-21 Completed [facility] Vaccine [facility] 00:00:00 [facility], Preserv and ABX Branc h Free 18-64 YRS Influenza Virus 2020-03-21 Completed [facility] Vaccine 00:00:00 [facility] Influenza Virus 2020-03-21 Completed [facility] Vaccine [facility] 00:00:00 [facility], Preserv and ABX Branc h Free 18-64 YRS Influenza Virus 2020-03-21 Completed [facility] Vaccine 00:00:00 [facility] Influenza Virus 2020-03-21 Completed [facility] Vaccine [facility] 00:00:00 [facility], Preserv and ABX Branc h Free 18-64 YRS Influenza Virus 2020-03-21 Completed [facility] Vaccine 00:00:00 [facility] Influenza Virus 2020-03-21 Completed [facility] Vaccine [facility] 00:00:00 [facility], Preserv and ABX Branc h Free 18-64 YRS Influenza Virus 2020-03-21 Completed [facility] Vaccine 00:00:00 [facility] Influenza Virus 2020-03-21 Completed [facility] Vaccine [facility] 00:00:00 [facility], Preserv and ABX Branc h Free 18-64 YRS Influenza Virus 2020-03-21 Completed [facility] Vaccine 00:00:00 [facility] Influenza Virus 2020-03-21 Completed [facility] Vaccine [facility] 00:00:00 [facility], Preserv and ABX Branc h Free 18-64 YRS Influenza Virus 2020-03-21 Completed [facility] Vaccine 00:00:00 [facility] Influenza Virus 2020-03-21 Completed [facility] Vaccine [facility] 00:00:00 [facility], Preserv and ABX Branc h Free 18-64 YRS Influenza Virus 2020-03-21 Completed [facility] Vaccine 00:00:00 [facility] Influenza Virus 2020-03-21 Completed [facility] Vaccine [facility] 00:00:00 [facility], Preserv and ABX Branc h Free 18-64 YRS Influenza Virus 2020-03-21 Completed [facility] Vaccine 00:00:00 [facility] Influenza Virus 2020-03-21 Completed [facility] Vaccine [facility] 00:00:00 [facility], Preserv and ABX Branc h Free 18-64 YRS Influenza Virus 2020-03-21 Completed [facility] Vaccine 00:00:00 [facility] Influenza Virus 2020-03-21 Completed [facility] Vaccine [facility] 00:00:00 [facility], Preserv and ABX Branc h Free 18-64 YRS Influenza Virus 2020-03-21 Completed [facility] Vaccine 00:00:00 [facility] Influenza Virus 2020-03-21 Completed [facility] Vaccine [facility] 00:00:00 [facility], Preserv and ABX Branc h Free 18-64 YRS Influenza Virus 2020-03-21 Completed [facility] Vaccine 00:00:00 [facility] Influenza Virus 2020-03-21 Completed [facility] Vaccine [facility] 00:00:00 [facility], Preserv and ABX Branc h Free 18-64 YRS Influenza Virus 2020-03-21 Completed [facility] Vaccine 00:00:00 [facility] Influenza Virus 2020-03-21 Completed [facility] Vaccine [facility] 00:00:00 [facility], Preserv and ABX Branc h Free 18-64 YRS Influenza Virus 2020-03-21 Completed [facility] Vaccine 00:00:00 [facility] Influenza Virus 2020-03-21 Completed [facility] Vaccine [facility] 00:00:00 [facility], Preserv and ABX Branc h Free 18-64 YRS Influenza Virus 2020-03-21 Completed [facility] Vaccine 00:00:00 [facility] Influenza Virus 2020-03-21 Completed [facility] Vaccine [facility] 00:00:00 [facility], Preserv and ABX Branc h Free 18-64 YRS Influenza Virus 2020-03-21 Completed [facility] Vaccine 00:00:00 [facility] Influenza Virus 2020-03-21 Completed [facility] Vaccine [facility] 00:00:00 [facility], Preserv and ABX Branc h Free 18-64 YRS Influenza Virus 2020-03-21 Completed [facility] Vaccine 00:00:00 [facility] Influenza Virus 2020-03-21 Completed [facility] Vaccine [facility] 00:00:00 [facility], Preserv and ABX Branc h Free 18-64 YRS Influenza Virus 2020-03-21 Completed [facility] Vaccine 00:00:00 [facility] Influenza Virus 2020-03-21 Completed [facility] Vaccine [facility] 00:00:00 [facility], Preserv and ABX Branc h Free 18-64 YRS Influenza Virus 2020-03-21 Completed [facility] Vaccine 00:00:00 [facility] Influenza Virus 2020-03-21 Completed [facility] Vaccine [facility] 00:00:00 [facility], Preserv and ABX Branc h Free 18-64 YRS Influenza Virus 2020-03-21 Completed [facility] Vaccine 00:00:00 [facility] Influenza Virus 2020-03-21 Completed [facility] Vaccine [facility] 00:00:00 [facility], Preserv and ABX Branc h Free 18-64 YRS Influenza Virus 2020-03-21 Completed [facility] Vaccine 00:00:00 [facility] Influenza Virus 2020-03-21 Completed [facility] Vaccine [facility] 00:00:00 [facility], Preserv and ABX Branc h Free 18-64 YRS Influenza Virus 2020-03-21 Completed [facility] Vaccine 00:00:00 [facility] Influenza Virus 2020-03-21 Completed [facility] Vaccine [facility] 00:00:00 [facility], Preserv and ABX Branc h Free 18-64 YRS Influenza Virus 2020-03-21 Completed [facility] Vaccine 00:00:00 [facility] Influenza Virus 2020-03-21 Completed [facility] Vaccine [facility] 00:00:00 [facility], Preserv and ABX Branc h Free 18-64 YRS Influenza Virus 2020-03-21 Completed [facility] Vaccine 00:00:00 [facility] Influenza Virus 2020-03-21 Completed [facility] Vaccine [facility] 00:00:00 [facility], Preserv and ABX Branc h Free 18-64 YRS Influenza Virus 2020-03-21 Completed [facility] Vaccine 00:00:00 [facility] Influenza Virus 2020-03-21 Completed [facility] Vaccine [facility] 00:00:00 [facility], Preserv and ABX Branc h Free 18-64 YRS Influenza Virus 2020-03-21 Completed [facility] Vaccine 00:00:00 [facility] Influenza Virus 2020-03-21 Completed [facility] Vaccine [facility] 00:00:00 [facility], Preserv and ABX Branc h Free 18-64 YRS Influenza Virus 2020-03-21 Completed [facility] Vaccine 00:00:00 [facility] Influenza Virus 2020-03-21 Completed [facility] Vaccine [facility] 00:00:00 [facility], Preserv and ABX Branc h Free 18-64 YRS Influenza Virus 2020-03-21 Completed [facility] Vaccine 00:00:00 [facility] Influenza Virus 2020-03-21 Completed [facility] Vaccine [facility] 00:00:00 [facility], Preserv and ABX Branc h Free 18-64 YRS Influenza Virus 2020-03-21 Completed [facility] Vaccine 00:00:00 [facility] Influenza Virus 2020-03-21 Completed [facility] Vaccine [facility] 00:00:00 [facility], Preserv and ABX Branc h Free 18-64 YRS Influenza Virus 2020-03-21 Completed [facility] 00:00:00 [facility] [facility] Influenza Virus 2020-03-21 Completed [facility] Vaccine Recomb Quad 00:00:00 [facility], Preserv and ABX Branc h Free 18-64 YRS Influenza Virus 2020-03-21 Completed [facility] Vaccine 00:00:00 [facility] Influenza Virus 2020-03-21 Completed [facility] Vaccine Recomb Quad 00:00:00 [facility], Preserv and ABX Branc h Free 18-64 YRS Influenza Virus 2020-03-21 Completed [facility] Vaccine 00:00:00 [facility] Influenza Virus 2020-03-21 Completed [facility] of Vaccine Recomb Quad 00:00:00 [facility], Preserv and ABX Branc h Free 18-64 YRS Influenza Virus 2020-03-21 Completed [facility] Vaccine 00:00:00 [facility] Influenza Virus 2020-03-21 Completed [facility] of Vaccine Recomb Quad 00:00:00 [facility], Preserv and ABX Branc h Free 18-64 YRS Influenza Virus 2020-03-21 Completed [facility] Vaccine 00:00:00 [facility] Influenza Virus 2020-03-21 Completed [facility] of Vaccine Recomb Quad 00:00:00 [facility], Preserv and ABX Branc h Free 18-64 YRS Influenza Virus 2020-03-21 Completed [facility] Vaccine 00:00:00 [facility] Influenza Virus 2020-03-21 Completed [facility] of Vaccine Recomb Quad 00:00:00 [facility], Preserv and ABX Branc h Free 18-64 YRS Influenza Virus 2020-03-21 Completed [facility] Vaccine 00:00:00 [facility] Influenza Virus 2020-03-21 Completed [facility] of Vaccine Recomb Quad 00:00:00 [facility], Preserv and ABX Branc h Free 18-64 YRS Influenza Virus 2020-03-21 Completed [facility] Vaccine 00:00:00 [facility] Influenza Virus 2020-03-21 Completed [facility] of Vaccine Recomb Quad 00:00:00 [facility], Preserv and ABX Branc h Free 18-64 YRS Influenza Virus 2020-03-21 Completed [facility] Vaccine 00:00:00 [facility] Influenza Virus 2020-03-21 Completed [facility] of Vaccine Recomb Quad 00:00:00 [facility], Preserv and ABX Branc h Free 18-64 YRS Influenza Virus 2020-03-21 Completed [facility] Vaccine 00:00:00 [facility] Influenza Virus 2020-03-21 Completed [facility] Vaccine Recomb Quad 00:00:00 [facility], Preserv and ABX Branc h Free 18-64 YRS Influenza Virus 2020-03-21 Completed [facility] Vaccine 00:00:00 [facility] Influenza Virus 2020-03-21 Completed [facility] Vaccine Recomb Quad 00:00:00 [facility], Preserv and ABX Branc h Free 18-64 YRS Influenza Virus 2020-03-21 Completed [facility] Vaccine 00:00:00 [facility] TDAP 2019-04-26 Completed [facility] 00:00:00 [facility] Influenza Virus 2019-04-26 Completed [facility] of Vaccine Quad .5 mL 00:00:00 [facility] 6+ MO Branch Pneumococcal 2019-04-26 Completed [facility] o f Polysaccharide, 00:00:00 [facility] PPSV23 (PNEUMOVAX) Branch Influenza Virus 2019-04-26 Completed [facility] Vaccine Quad IM 3+ 00:00:00 [facility] TDAP 2019-04-26 Completed [facility] 00:00:00 [facility] Influenza Virus 2019-04-26 Completed [facility] of Vaccine Quad .5 mL 00:00:00 [facility] IM 6+ MO Branch Pneumococcal 2019-04-26 Completed [facility] o f Polysaccharide, 00:00:00 [facility] PPSV23 (PNEUMOVAX) Branch Influenza Virus 2019-04-26 Completed [facility] Vaccine Quad IM 3+ 00:00:00 [facility] TDAP 2019-04-26 Completed [facility] 00:00:00 [facility] Influenza Virus 2019-04-26 Completed [facility] of Vaccine Quad .5 mL 00:00:00 [facility] 6+ MO Branch Pneumococcal 2019-04-26 Completed [facility] o f Polysaccharide, 00:00:00 [facility] PPSV23 (PNEUMOVAX) Branch Influenza Virus 2019-04-26 Completed [facility] Vaccine Quad IM 3+ 00:00:00 [facility] TDAP 2019-04-26 Completed [facility] 00:00:00 [facility] Influenza Virus 2019-04-26 Completed [facility] Vaccine Quad .5 mL 00:00:00 [facility] 6+ MO Branch Pneumococcal 2019-04-26 Completed [facility] o f Polysaccharide, 00:00:00 [facility] PPSV23 (PNEUMOVAX) Branch Influenza Virus 2019-04-26 Completed [facility] Vaccine Quad IM 3+ 00:00:00 [facility] TDAP 2019-04-26 Completed [facility] 00:00:00 [facility] Influenza Virus 2019-04-26 Completed [facility] of Vaccine Quad .5 mL 00:00:00 [facility] IM 6+ MO Branch Pneumococcal 2019-04-26 Completed [facility] o f Polysaccharide, 00:00:00 [facility] PPSV23 (PNEUMOVAX) Branch Influenza Virus 2019-04-26 Completed [facility] Vaccine Quad IM 3+ 00:00:00 [facility] TDAP 2019-04-26 Completed [facility] 00:00:00 [facility] Influenza Virus 2019-04-26 Completed [facility] of Vaccine Quad .5 mL 00:00:00 [facility] IM 6+ MO Branch Pneumococcal 2019-04-26 Completed [facility] o f Polysaccharide, 00:00:00 [facility] PPSV23 (PNEUMOVAX) Branch Influenza Virus 2019-04-26 Completed [facility] Vaccine Quad IM 3+ 00:00:00 [facility] TDAP 2019-04-26 Completed [facility] 00:00:00 [facility] Influenza Virus 2019-04-26 Completed [facility] of Vaccine Quad .5 mL 00:00:00 [facility] 6+ MO Branch Pneumococcal 2019-04-26 Completed [facility] o f Polysaccharide, 00:00:00 [facility] PPSV23 (PNEUMOVAX) Branch Influenza Virus 2019-04-26 Completed [facility] Vaccine Quad IM 3+ 00:00:00 [facility] TDAP 2019-04-26 Completed [facility] 00:00:00 [facility] Influenza Virus 2019-04-26 Completed [facility] of Vaccine Quad .5 mL 00:00:00 [facility] 6+ MO Branch Pneumococcal 2019-04-26 Completed [facility] o f Polysaccharide, 00:00:00 [facility] PPSV23 (PNEUMOVAX) Branch Influenza Virus 2019-04-26 Completed [facility] Vaccine Quad IM 3+ 00:00:00 [facility] TDAP 2019-04-26 Completed [facility] 00:00:00 [facility] Influenza Virus 2019-04-26 Completed [facility] of Vaccine Quad .5 mL 00:00:00 [facility] 6+ MO Branch Pneumococcal 2019-04-26 Completed [facility] o f Polysaccharide, 00:00:00 [facility] PPSV23 (PNEUMOVAX) Branch Influenza Virus 2019-04-26 Completed [facility] Vaccine Quad IM 3+ 00:00:00 [facility] TDAP 2019-04-26 Completed [facility] 00:00:00 [facility] Influenza Virus 2019-04-26 Completed [facility] of Vaccine Quad .5 mL 00:00:00 [facility] IM 6+ MO Branch Pneumococcal 2019-04-26 Completed [facility] o f Polysaccharide, 00:00:00 [facility] PPSV23 (PNEUMOVAX) Branch Influenza Virus 2019-04-26 Completed [facility] of Vaccine Quad IM 3+ 00:00:00 [facility] TDAP 2019-04-26 Completed [facility] 00:00:00 [facility] Influenza Virus 2019-04-26 Completed [facility] of Vaccine Quad .5 mL 00:00:00 [facility] 6+ MO Branch Pneumococcal 2019-04-26 Completed [facility] o f Polysaccharide, 00:00:00 [facility] PPSV23 (PNEUMOVAX) Branch Influenza Virus 2019-04-26 Completed [facility] of Vaccine Quad IM 3+ 00:00:00 [facility] TDAP 2019-04-26 Completed [facility] 00:00:00 [facility] Influenza Virus 2019-04-26 Completed [facility] of Vaccine Quad .5 mL 00:00:00 [facility] 6+ MO Branch Pneumococcal 2019-04-26 Completed [facility] o f Polysaccharide, 00:00:00 [facility] PPSV23 (PNEUMOVAX) Branch Influenza Virus 2019-04-26 Completed [facility] of Vaccine Quad IM 3+ 00:00:00 [facility] TDAP 2019-04-26 Completed [facility] 00:00:00 [facility] Influenza Virus 2019-04-26 Completed [facility] of Vaccine Quad .5 mL 00:00:00 [facility] 6+ MO Branch Pneumococcal 2019-04-26 Completed [facility] o f Polysaccharide, 00:00:00 [facility] PPSV23 (PNEUMOVAX) Branch Influenza Virus 2019-04-26 Completed [facility] of Vaccine Quad IM 3+ 00:00:00 [facility] TDAP 2019-04-26 Completed [facility] 00:00:00 [facility] Influenza Virus 2019-04-26 Completed [facility] of Vaccine Quad .5 mL 00:00:00 [facility] 6+ MO Branch Pneumococcal 2019-04-26 Completed [facility] o f Polysaccharide, 00:00:00 [facility] PPSV23 (PNEUMOVAX) Branch Influenza Virus 2019-04-26 Completed [facility] of Vaccine Quad IM 3+ 00:00:00 [facility] TDAP 2019-04-26 Completed [facility] 00:00:00 [facility] Influenza Virus 2019-04-26 Completed [facility] of Vaccine Quad .5 mL 00:00:00 [facility] 6+ MO Branch Pneumococcal 2019-04-26 Completed [facility] o f Polysaccharide, 00:00:00 [facility] PPSV23 (PNEUMOVAX) Branch Influenza Virus 2019-04-26 Completed [facility] of Vaccine Quad IM 3+ 00:00:00 [facility] TDAP 2019-04-26 Completed [facility] 00:00:00 [facility] Influenza Virus 2019-04-26 Completed [facility] of Vaccine Quad .5 mL 00:00:00 [facility] 6+ MO Branch Pneumococcal 2019-04-26 Completed [facility] o f Polysaccharide, 00:00:00 [facility] PPSV23 (PNEUMOVAX) Branch Influenza Virus 2019-04-26 Completed [facility] of Vaccine Quad IM 3+ 00:00:00 [facility] TDAP 2019-04-26 Completed [facility] 00:00:00 [facility] Influenza Virus 2019-04-26 Completed [facility] of Vaccine Quad .5 mL 00:00:00 [facility] 6+ MO Branch Pneumococcal 2019-04-26 Completed [facility] o f Polysaccharide, 00:00:00 [facility] PPSV23 (PNEUMOVAX) Branch Influenza Virus 2019-04-26 Completed [facility] of Vaccine Quad IM 3+ 00:00:00 [facility] TDAP 2019-04-26 Completed [facility] 00:00:00 [facility] Influenza Virus 2019-04-26 Completed [facility] of Vaccine Quad .5 mL 00:00:00 [facility] 6+ MO Branch Pneumococcal 2019-04-26 Completed [facility] o f Polysaccharide, 00:00:00 [facility] PPSV23 (PNEUMOVAX) Branch Influenza Virus 2019-04-26 Completed [facility] of Vaccine Quad IM 3+ 00:00:00 [facility] TDAP 2019-04-26 Completed [facility] 00:00:00 [facility] Influenza Virus 2019-04-26 Completed [facility] y of Vaccine Quad .5 mL 00:00:00 [facility] 6+ MO Branch Pneumococcal 2019-04-26 Completed [facility] o f Polysaccharide, 00:00:00 [facility] PPSV23 (PNEUMOVAX) Branch Influenza Virus 2019-04-26 Completed [facility] of Vaccine Quad IM 3+ 00:00:00 [facility] TDAP 2019-04-26 Completed [facility] 00:00:00 [facility] Influenza Virus 2019-04-26 Completed [facility] y of Vaccine Quad .5 mL 00:00:00 [facility] 6+ MO Branch Pneumococcal 2019-04-26 Completed [facility] o f Polysaccharide, 00:00:00 [facility] PPSV23 (PNEUMOVAX) Branch Influenza Virus 2019-04-26 Completed [facility] y of Vaccine Quad IM 3+ 00:00:00 [facility] TDAP 2019-04-26 Completed [facility] 00:00:00 [facility] Influenza Virus 2019-04-26 Completed [facility] y of Vaccine Quad .5 mL 00:00:00 [facility] 6+ MO Branch Pneumococcal 2019-04-26 Completed [facility] o f Polysaccharide, 00:00:00 [facility] PPSV23 (PNEUMOVAX) Branch Influenza Virus 2019-04-26 Completed [facility] of Vaccine Quad IM 3+ 00:00:00 [facility] TDAP 2019-04-26 Completed [facility] 00:00:00 [facility] Influenza Virus 2019-04-26 Completed [facility] y of Vaccine Quad .5 mL 00:00:00 [facility] IM 6+ MO Branch Pneumococcal 2019-04-26 Completed [facility] o f Polysaccharide, 00:00:00 [facility] PPSV23 (PNEUMOVAX) Branch Influenza Virus 2019-04-26 Completed [facility] y of Vaccine Quad IM 3+ 00:00:00 [facility] TDAP 2019-04-26 Completed [facility] 00:00:00 [facility] Influenza Virus 2019-04-26 Completed [facility] y of Vaccine Quad .5 mL 00:00:00 [facility] 6+ MO Branch Pneumococcal 2019-04-26 Completed [facility] o f Polysaccharide, 00:00:00 [facility] PPSV23 (PNEUMOVAX) Branch Influenza Virus 2019-04-26 Completed [facility] of Vaccine Quad IM 3+ 00:00:00 [facility] TDAP 2019-04-26 Completed [facility] 00:00:00 [facility] Influenza Virus 2019-04-26 Completed [facility] y of Vaccine Quad .5 mL 00:00:00 [facility] 6+ MO Branch Pneumococcal 2019-04-26 Completed [facility] o f Polysaccharide, 00:00:00 [facility] PPSV23 (PNEUMOVAX) Branch Influenza Virus 2019-04-26 Completed [facility] of Vaccine Quad IM 3+ 00:00:00 [facility] TDAP 2019-04-26 Completed [facility] 00:00:00 [facility] Influenza Virus 2019-04-26 Completed [facility] y of Vaccine Quad .5 mL 00:00:00 [facility] IM 6+ MO Branch Pneumococcal 2019-04-26 Completed [facility] o f Polysaccharide, 00:00:00 [facility] PPSV23 (PNEUMOVAX) Branch Influenza Virus 2019-04-26 Completed [facility] of Vaccine Quad IM 3+ 00:00:00 [facility] TDAP 2019-04-26 Completed [facility] 00:00:00 [facility] Influenza Virus 2019-04-26 Completed [facility] y of Vaccine Quad .5 mL 00:00:00 [facility] 6+ MO Branch Pneumococcal 2019-04-26 Completed [facility] o f Polysaccharide, 00:00:00 [facility] PPSV23 (PNEUMOVAX) Branch Influenza Virus 2019-04-26 Completed [facility] of Vaccine Quad IM 3+ 00:00:00 [facility] TDAP 2019-04-26 Completed [facility] 00:00:00 [facility] Influenza Virus 2019-04-26 Completed [facility] of Vaccine Quad .5 mL 00:00:00 [facility] 6+ MO Branch Pneumococcal 2019-04-26 Completed [facility] o f Polysaccharide, 00:00:00 [facility] PPSV23 (PNEUMOVAX) Branch Influenza Virus 2019-04-26 Completed [facility] of Vaccine Quad IM 3+ 00:00:00 [facility] TDAP 2019-04-26 Completed [facility] 00:00:00 [facility] Influenza Virus 2019-04-26 Completed [facility] of Vaccine Quad .5 mL 00:00:00 [facility] 6+ MO Branch Pneumococcal 2019-04-26 Completed [facility] o f Polysaccharide, 00:00:00 [facility] PPSV23 (PNEUMOVAX) Branch Influenza Virus 2019-04-26 Completed [facility] of Vaccine Quad IM 3+ 00:00:00 [facility] TDAP 2019-04-26 Completed [facility] 00:00:00 [facility] Influenza Virus 2019-04-26 Completed [facility] y of Vaccine Quad .5 mL 00:00:00 [facility] 6+ MO Branch Pneumococcal 2019-04-26 Completed [facility] o f Polysaccharide, 00:00:00 [facility] PPSV23 (PNEUMOVAX) Branch Influenza Virus 2019-04-26 Completed [facility] y of Vaccine Quad IM 3+ 00:00:00 [facility] TDAP 2019-04-26 Completed [facility] 00:00:00 [facility] Influenza Virus 2019-04-26 Completed [facility] y of Vaccine Quad .5 mL 00:00:00 [facility] 6+ MO Branch Pneumococcal 2019-04-26 Completed [facility] o f Polysaccharide, 00:00:00 [facility] PPSV23 (PNEUMOVAX) Branch Influenza Virus 2019-04-26 Completed [facility] y of Vaccine Quad IM 3+ 00:00:00 [facility] TDAP 2019-04-26 Completed [facility] 00:00:00 [facility] Influenza Virus 2019-04-26 Completed [facility] y of Vaccine Quad .5 mL 00:00:00 [facility] 6+ MO Branch Pneumococcal 2019-04-26 Completed [facility] o f Polysaccharide, 00:00:00 [facility] PPSV23 (PNEUMOVAX) Branch Influenza Virus 2019-04-26 Completed [facility] y of Vaccine Quad IM 3+ 00:00:00 [facility] TDAP 2019-04-26 Completed [facility] of 00:00:00 [facility] Influenza Virus 2019-04-26 Completed [facility] y of Vaccine Quad .5 mL 00:00:00 [facility] 6+ MO Branch Pneumococcal 2019-04-26 Completed [facility] o f Polysaccharide, 00:00:00 [facility] PPSV23 (PNEUMOVAX) Branch Influenza Virus 2019-04-26 Completed [facility] y of Vaccine Quad IM 3+ 00:00:00 [facility] TDAP 2019-04-26 Completed [facility] 00:00:00 [facility] Influenza Virus 2019-04-26 Completed [facility] y of Vaccine Quad .5 mL 00:00:00 [facility] 6+ MO Branch Pneumococcal 2019-04-26 Completed [facility] o f Polysaccharide, 00:00:00 [facility] PPSV23 (PNEUMOVAX) Branch Influenza Virus 2019-04-26 Completed [facility] y of Vaccine Quad IM 3+ 00:00:00 [facility] TDAP 2019-04-26 Completed [facility] 00:00:00 [facility] Influenza Virus 2019-04-26 Completed [facility] y of Vaccine Quad .5 mL 00:00:00 [facility] 6+ MO Branch Pneumococcal 2019-04-26 Completed [facility] o f Polysaccharide, 00:00:00 [facility] PPSV23 (PNEUMOVAX) Branch Influenza Virus 2019-04-26 Completed [facility] y of Vaccine Quad IM 3+ 00:00:00 [facility] TDAP 2019-04-26 Completed [facility] 00:00:00 [facility] Influenza Virus 2019-04-26 Completed [facility] y of Vaccine Quad .5 mL 00:00:00 [facility] 6+ MO Branch Pneumococcal 2019-04-26 Completed [facility] o f Polysaccharide, 00:00:00 [facility] PPSV23 (PNEUMOVAX) Branch Influenza Virus 2019-04-26 Completed [facility] y of Vaccine Quad IM 3+ 00:00:00 [facility] TDAP 2019-04-26 Completed [facility] 00:00:00 [facility] Influenza Virus 2019-04-26 Completed [facility] y of Vaccine Quad .5 mL 00:00:00 [facility] 6+ MO Branch Pneumococcal 2019-04-26 Completed [facility] o f Polysaccharide, 00:00:00 [facility] PPSV23 (PNEUMOVAX) Branch Influenza Virus 2019-04-26 Completed [facility] y of Vaccine Quad IM 3+ 00:00:00 [facility] TDAP 2019-04-26 Completed [facility] 00:00:00 [facility] Influenza Virus 2019-04-26 Completed [facility] y of Vaccine Quad .5 mL 00:00:00 [facility] 6+ MO Branch Pneumococcal 2019-04-26 Completed [facility] o f Polysaccharide, 00:00:00 [facility] PPSV23 (PNEUMOVAX) Branch Influenza Virus 2019-04-26 Completed [facility] of Vaccine Quad IM 3+ 00:00:00 [facility] TDAP 2019-04-26 Completed [facility] 00:00:00 [facility] Influenza Virus 2019-04-26 Completed [facility] y of Vaccine Quad .5 mL 00:00:00 [facility] 6+ MO Branch Pneumococcal 2019-04-26 Completed [facility] o f Polysaccharide, 00:00:00 [facility] PPSV23 (PNEUMOVAX) Branch Influenza Virus 2019-04-26 Completed [facility] of Vaccine Quad IM 3+ 00:00:00 [facility] TDAP 2019-04-26 Completed [facility] 00:00:00 [facility] Influenza Virus 2019-04-26 Completed [facility] y of Vaccine Quad .5 mL 00:00:00 [facility] IM 6+ MO Branch Pneumococcal 2019-04-26 Completed [facility] o f Polysaccharide, 00:00:00 [facility] PPSV23 (PNEUMOVAX) Branch Influenza Virus 2019-04-26 Completed [facility] y of Vaccine Quad IM 3+ 00:00:00 [facility] TDAP 2019-04-26 Completed [facility] 00:00:00 [facility] Influenza Virus 2019-04-26 Completed [facility] y of Vaccine Quad .5 mL 00:00:00 [facility] IM 6+ MO Branch Pneumococcal 2019-04-26 Completed [facility] o f Polysaccharide, 00:00:00 [facility] PPSV23 (PNEUMOVAX) Branch Influenza Virus 2019-04-26 Completed [facility] of Vaccine Quad IM 3+ 00:00:00 [facility] TDAP 2019-04-26 Completed [facility] 00:00:00 [facility] Influenza Virus 2019-04-26 Completed [facility] y of Vaccine Quad .5 mL 00:00:00 [facility] 6+ MO Branch Pneumococcal 2019-04-26 Completed [facility] o f Polysaccharide, 00:00:00 [facility] PPSV23 (PNEUMOVAX) Branch Influenza Virus 2019-04-26 Completed [facility] of Vaccine Quad IM 3+ 00:00:00 [facility] TDAP 2019-04-26 Completed [facility] 00:00:00 [facility] Influenza Virus 2019-04-26 Completed [facility] y of Vaccine Quad .5 mL 00:00:00 [facility] 6+ MO Branch Pneumococcal 2019-04-26 Completed [facility] o f Polysaccharide, 00:00:00 [facility] PPSV23 (PNEUMOVAX) Branch Influenza Virus 2019-04-26 Completed [facility] of Vaccine Quad IM 3+ 00:00:00 [facility] TDAP 2019-04-26 Completed [facility] 00:00:00 [facility] Influenza Virus 2019-04-26 Completed [facility] y of Vaccine Quad .5 mL 00:00:00 [facility] IM 6+ MO Branch Pneumococcal 2019-04-26 Completed [facility] o f Polysaccharide, 00:00:00 [facility] PPSV23 (PNEUMOVAX) Branch Influenza Virus 2019-04-26 Completed [facility] of Vaccine Quad IM 3+ 00:00:00 [facility] TDAP 2019-04-26 Completed [facility] 00:00:00 [facility] Influenza Virus 2019-04-26 Completed [facility] y of Vaccine Quad .5 mL 00:00:00 [facility] 6+ MO Branch Pneumococcal 2019-04-26 Completed University o f Polysaccharide, 00:00:00 [facility] ical PPSV23 (PNEUMOVAX) Branch Influenza Virus 2019-04-26 Completed [facility]it y of Vaccine Quad IM 3+ 00:00:00 [facility] TDAP 2019-04-26 Completed [facility] of 00:00:00 [facility] Influenza Virus 2019-04-26 Completed [facility] y of Vaccine Quad .5 mL 00:00:00 [facility] 6+ MO Branch Pneumococcal 2019-04-26 Completed [facility] o f Polysaccharide, 00:00:00 [facility] ical PPSV23 (PNEUMOVAX) Branch Influenza Virus 2019-04-26 Completed [facility] y of Vaccine Quad IM 3+ 00:00:00 [facility] TDAP 2019-04-26 Completed [facility] 00:00:00 [facility] Influenza Virus 2019-04-26 Completed [facility] y of Vaccine Quad .5 mL 00:00:00 [facility] 6+ MO Branch Pneumococcal 2019-04-26 Completed [facility] o f Polysaccharide, 00:00:00 [facility] PPSV23 (PNEUMOVAX) Branch Influenza Virus 2019-04-26 Completed [facility] of Vaccine Quad IM 3+ 00:00:00 [facility] TDAP 2019-04-26 Completed [facility] 00:00:00 [facility] Influenza Virus 2019-04-26 Completed [facility] y of Vaccine Quad .5 mL 00:00:00 [facility] 6+ MO Branch Pneumococcal 2019-04-26 Completed [facility] o f Polysaccharide, 00:00:00 [facility] PPSV23 (PNEUMOVAX) Branch Influenza Virus 2019-04-26 Completed [facility] of Vaccine Quad IM 3+ 00:00:00 [facility] TDAP 2019-04-26 Completed [facility] 00:00:00 [facility] Influenza Virus 2019-04-26 Completed [facility] y of Vaccine Quad .5 mL 00:00:00 [facility] 6+ MO Branch Pneumococcal 2019-04-26 Completed [facility] o f Polysaccharide, 00:00:00 [facility] PPSV23 (PNEUMOVAX) Branch Influenza Virus 2019-04-26 Completed [facility] of Vaccine Quad IM 3+ 00:00:00 [facility] TDAP 2019-04-26 Completed [facility] 00:00:00 [facility] Influenza Virus 2019-04-26 Completed [facility] of Vaccine Quad .5 mL 00:00:00 [facility] IM 6+ MO Branch Pneumococcal 2019-04-26 Completed [facility] o f Polysaccharide, 00:00:00 [facility] PPSV23 (PNEUMOVAX) Branch Influenza Virus 2019-04-26 Completed [facility]it y of Vaccine Quad IM 3+ 00:00:00 [facility] TDAP 2019-04-26 Completed University of 00:00:00 [facility] Influenza Virus 2019-04-26 Completed Universit y of Vaccine Quad .5 mL 00:00:00 [facility] 6+ MO Branch Pneumococcal 2019-04-26 Completed University o f Polysaccharide, 00:00:00 [facility] PPSV23 (PNEUMOVAX) Branch Influenza Virus 2019-04-26 Completed Universit y of Vaccine Quad IM 3+ 00:00:00 [facility] TDAP 2019-04-26 Completed University of 00:00:00 [facility] Influenza Virus 2019-04-26 Completed Universit y of Vaccine Quad .5 mL 00:00:00 [facility] 6+ MO [facility] Pneumococcal 2019-04-26 Completed University o f Polysaccharide, 00:00:00 [facility] PPSV23 (PNEUMOVAX) Branch Influenza Virus 2019-04-26 Completed Universit y of Vaccine Quad IM 3+ 00:00:00 [facility] TDAP 2019-04-26 Completed [facility] of 00:00:00 [facility] Influenza Virus 2019-04-26 Completed Universit y of Vaccine Quad .5 mL 00:00:00 [facility] 6+ MO [facility] Pneumococcal 2019-04-26 Completed University o f Polysaccharide, 00:00:00 [facility] PPSV23 (PNEUMOVAX) Branch Influenza Virus 2019-04-26 Completed Universit y of Vaccine Quad IM 3+ 00:00:00 [facility] TDAP 2019-04-26 Completed [facility] of 00:00:00 [facility] Influenza Virus 2019-04-26 Completed Universit y of Vaccine Quad .5 mL 00:00:00 [facility] IM 6+ MO Branch Pneumococcal 2019-04-26 Completed University o f Polysaccharide, 00:00:00 [facility] PPSV23 (PNEUMOVAX) Branch Influenza Virus 2019-04-26 Completed Universit y of Vaccine Quad IM 3+ 00:00:00 [facility] TDAP 2019-04-26 Completed [facility] of 00:00:00 [facility] Influenza Virus 2019-04-26 Completed Universit y of Vaccine Quad .5 mL 00:00:00 [facility] 6+ MO Branch Pneumococcal 2019-04-26 Completed University o f Polysaccharide, 00:00:00 [facility] PPSV23 (PNEUMOVAX) Branch Influenza Virus 2019-04-26 Completed Universit y of Vaccine Quad IM 3+ 00:00:00 [facility] TDAP 2019-04-26 Completed [facility] of 00:00:00 [facility] Influenza Virus 2019-04-26 Completed Universit y of Vaccine Quad .5 mL 00:00:00 [facility] 6+ MO Branch Pneumococcal 2019-04-26 Completed University o f Polysaccharide, 00:00:00 [facility] PPSV23 (PNEUMOVAX) Branch Influenza Virus 2019-04-26 Completed Universit y of Vaccine Quad IM 3+ 00:00:00 [facility] TDAP 2019-04-26 Completed [facility] of 00:00:00 [facility] Influenza Virus 2019-04-26 Completed Universit y of Vaccine Quad .5 mL 00:00:00 [facility] 6+ MO Branch Pneumococcal 2019-04-26 Completed University o f Polysaccharide, 00:00:00 [facility] PPSV23 (PNEUMOVAX) Branch Influenza Virus 2019-04-26 Completed [facility]it y of Vaccine Quad IM 3+ 00:00:00 [facility] Influenza Virus 2019-04-19 Completed Universit y of Vaccine 00:00:00 [facility] Influenza Virus 2019-04-19 Completed Universit y of Vaccine 00:00:00 [facility] Influenza Virus 2019-04-19 Completed Universit y of Vaccine 00:00:00 [facility] Influenza Virus 2019-04-19 Completed Universit y of Vaccine 00:00:00 [facility] Influenza Virus 2019-04-19 Completed Universit y of Vaccine 00:00:00 [facility] Influenza Virus 2019-04-19 Completed Universit y of Vaccine 00:00:00 [facility] Influenza Virus 2019-04-19 Completed Universit y of Vaccine 00:00:00 [facility] Influenza Virus 2019-04-19 Completed Universit y of Vaccine 00:00:00 [facility] Influenza Virus 2019-04-19 Completed Universit y of Vaccine 00:00:00 [facility] Influenza Virus 2019-04-19 Completed Universit y of Vaccine 00:00:00 [facility] Influenza Virus 2019-04-19 Completed Universit y of Vaccine 00:00:00 [facility] Influenza Virus 2019-04-19 Completed Universit y of Vaccine 00:00:00 [facility] Influenza Virus 2019-04-19 Completed Universit y of Vaccine 00:00:00 [facility] Influenza Virus 2019-04-19 Completed Universit y of Vaccine 00:00:00 [facility] Influenza Virus 2019-04-19 Completed Universit y of Vaccine 00:00:00 [facility] Influenza Virus 2019-04-19 Completed Universit y of Vaccine 00:00:00 [facility] Influenza Virus 2019-04-19 Completed Universit y of Vaccine 00:00:00 [facility] Influenza Virus 2019-04-19 Completed Universit y of Vaccine 00:00:00 [facility] Influenza Virus 2019-04-19 Completed Universit y of Vaccine 00:00:00 [facility] Influenza Virus 2019-04-19 Completed Universit y of Vaccine 00:00:00 [facility] Influenza Virus 2019-04-19 Completed Universit y of Vaccine 00:00:00 [facility] Influenza Virus 2019-04-19 Completed Universit y of Vaccine 00:00:00 [facility] Influenza Virus 2019-04-19 Completed Universit y of Vaccine 00:00:00 [facility] Influenza Virus 2019-04-19 Completed Universit y of Vaccine 00:00:00 [facility] Influenza Virus 2019-04-19 Completed Universit y of Vaccine 00:00:00 [facility] Influenza Virus 2019-04-19 Completed Universit y of Vaccine 00:00:00 [facility] Influenza Virus 2019-04-19 Completed Universit y of Vaccine 00:00:00 [facility] Influenza Virus 2019-04-19 Completed Universit y of Vaccine 00:00:00 [facility] Influenza Virus 2019-04-19 Completed Universit y of Vaccine 00:00:00 [facility] Influenza Virus 2019-04-19 Completed Universit y of Vaccine 00:00:00 [facility] Branch Influenza Virus 2019-04-19 Completed Universit y of Vaccine 00:00:00 [facility] Branch Influenza Virus 2019-04-19 Completed Universit y of Vaccine 00:00:00 [facility] Influenza Virus 2019-04-19 Completed Universit y of Vaccine 00:00:00 [facility] Influenza Virus 2019-04-19 Completed Universit y of Vaccine 00:00:00 [facility] Influenza Virus 2019-04-19 Completed Universit y of Vaccine 00:00:00 [facility] Influenza Virus 2019-04-19 Completed Universit y of Vaccine 00:00:00 [facility] Influenza Virus 2019-04-19 Completed Universit y of Vaccine 00:00:00 [facility] Influenza Virus 2019-04-19 Completed Universit y of Vaccine 00:00:00 [facility] Influenza Virus 2019-04-19 Completed Universit y of Vaccine 00:00:00 [facility] Influenza Virus 2019-04-19 Completed Universit y of Vaccine 00:00:00 [facility] Influenza Virus 2019-04-19 Completed Universit y of Vaccine 00:00:00 [facility] Influenza Virus 2019-04-19 Completed Universit y of Vaccine 00:00:00 [facility] Branch Influenza Virus 2019-04-19 Completed Universit y of Vaccine 00:00:00 [facility] Influenza Virus 2019-04-19 Completed Universit y of Vaccine 00:00:00 [facility] Influenza Virus 2019-04-19 Completed Universit y of Vaccine 00:00:00 [facility] Influenza Virus 2019-04-19 Completed Universit y of Vaccine 00:00:00 [facility] Influenza Virus 2019-04-19 Completed Universit y of Vaccine 00:00:00 [facility] Influenza Virus 2019-04-19 Completed Universit y of Vaccine 00:00:00 [facility] Branch Influenza Virus 2019-04-19 Completed Universit y of Vaccine 00:00:00 [facility] Influenza Virus 2019-04-19 Completed Universit y of Vaccine 00:00:00 [facility] Influenza Virus 2019-04-19 Completed Universit y of Vaccine 00:00:00 [facility] Influenza Virus 2019-04-19 Completed Universit y of Vaccine 00:00:00 [facility] Influenza Virus 2019-04-19 Completed Universit y of Vaccine 00:00:00 [facility] Influenza Virus 2019-04-19 Completed Universit y of Vaccine 00:00:00 [facility] Influenza Virus 2019-04-19 Completed Universit y of Vaccine 00:00:00 [facility] Influenza Virus 2019-04-19 Completed Universit y of Vaccine 00:00:00 [facility] Influenza Virus 2018-04-12 Completed Universit y of Vaccine Quad .5 mL 00:00:00 [facility] 6[facility] MO [facility] Influenza Virus 2018-04-12 Completed Universit y of Vaccine Quad IM 3+ 00:00:00 [facility] Influenza Virus 2018-04-12 Completed Universit y of Vaccine Quad .5 mL 00:00:00 [facility] 6+ [facility] Influenza Virus 2018-04-12 Completed [facility]it y of Vaccine Quad IM 3+ 00:00:00 [facility] Influenza Virus 2018-04-12 Completed [facility]it y of Vaccine Quad .5 mL 00:00:00 [facility] 6+ [facility] Influenza Virus 2018-04-12 Completed [facility]it y of Vaccine Quad IM 3+ 00:00:00 [facility] Influenza Virus 2018-04-12 Completed [facility]it y of Vaccine Quad .5 mL 00:00:00 [facility] 6+ [facility] Influenza Virus 2018-04-12 Completed [facility]it y of Vaccine Quad IM 3+ 00:00:00 [facility] Influenza Virus 2018-04-12 Completed Universit y of Vaccine Quad .5 mL 00:00:00 [facility] 6+ MO [facility] Influenza Virus 2018-04-12 Completed [facility]it y of Vaccine Quad IM 3+ 00:00:00 [facility] Influenza Virus 2018-04-12 Completed Universit y of Vaccine Quad .5 mL 00:00:00 [facility] 6+ [facility] Influenza Virus 2018-04-12 Completed [facility]it y of Vaccine Quad IM 3+ 00:00:00 [facility] Influenza Virus 2018-04-12 Completed Universit y of Vaccine Quad .5 mL 00:00:00 [facility] 6+ MO [facility] Influenza Virus 2018-04-12 Completed [facility]it y of Vaccine Quad IM 3+ 00:00:00 [facility] Influenza Virus 2018-04-12 Completed Universit y of Vaccine Quad .5 mL 00:00:00 [facility] 6+ MO [facility] Influenza Virus 2018-04-12 Completed [facility]it y of Vaccine Quad IM 3+ 00:00:00 [facility] Influenza Virus 2018-04-12 Completed Universit y of Vaccine Quad .5 mL 00:00:00 [facility] 6+ MO [facility] Influenza Virus 2018-04-12 Completed [facility]it y of Vaccine Quad IM 3+ 00:00:00 [facility] Influenza Virus 2018-04-12 Completed Universit y of Vaccine Quad .5 mL 00:00:00 [facility] 6+ MO [facility] Influenza Virus 2018-04-12 Completed [facility]it y of Vaccine Quad IM 3+ 00:00:00 [facility] Influenza Virus 2018-04-12 Completed Universit y of Vaccine Quad .5 mL 00:00:00 [facility] 6+ MO [facility] Influenza Virus 2018-04-12 Completed [facility]it y of Vaccine Quad IM 3+ 00:00:00 [facility] Influenza Virus 2018-04-12 Completed [facility]it y of Vaccine Quad .5 mL 00:00:00 [facility] 6+ MO [facility] Influenza Virus 2018-04-12 Completed [facility]it y of Vaccine Quad IM 3+ 00:00:00 [facility] Influenza Virus 2018-04-12 Completed [facility]it y of Vaccine Quad .5 mL 00:00:00 [facility] 6+ MO [facility] Influenza Virus 2018-04-12 Completed [facility]it y of Vaccine Quad IM 3+ 00:00:00 [facility] Influenza Virus 2018-04-12 Completed [facility]it y of Vaccine Quad .5 mL 00:00:00 [facility] 6+ MO [facility] Influenza Virus 2018-04-12 Completed [facility]it y of Vaccine Quad IM 3+ 00:00:00 [facility] Influenza Virus 2018-04-12 Completed [facility]it y of Vaccine Quad .5 mL 00:00:00 [facility] 6+ MO [facility] Influenza Virus 2018-04-12 Completed [facility]it y of Vaccine Quad IM 3+ 00:00:00 [facility] Influenza Virus 2018-04-12 Completed [facility]it y of Vaccine Quad .5 mL 00:00:00 [facility] 6+ MO [facility] Influenza Virus 2018-04-12 Completed Universit y of Vaccine Quad IM 3+ 00:00:00 [facility] Influenza Virus 2018-04-12 Completed Universit y of Vaccine Quad .5 mL 00:00:00 [facility] 6+ MO [facility] Influenza Virus 2018-04-12 Completed Universit y of Vaccine Quad IM 3+ 00:00:00 [facility] Influenza Virus 2018-04-12 Completed Universit y of Vaccine Quad .5 mL 00:00:00 [facility] 6+ MO Branch Influenza Virus 2018-04-12 Completed [facility]it y of Vaccine Quad IM 3+ 00:00:00 [facility] Influenza Virus 2018-04-12 Completed Universit y of Vaccine Quad .5 mL 00:00:00 [facility] 6+ MO [facility] Influenza Virus 2018-04-12 Completed [facility]it y of Vaccine Quad IM 3+ 00:00:00 [facility] Influenza Virus 2018-04-12 Completed [facility]it y of Vaccine Quad .5 mL 00:00:00 [facility] 6+ MO [facility] Influenza Virus 2018-04-12 Completed Universit y of Vaccine Quad IM 3+ 00:00:00 [facility] Influenza Virus 2018-04-12 Completed [facility]it y of Vaccine Quad .5 mL 00:00:00 [facility] 6+ MO [facility] Influenza Virus 2018-04-12 Completed [facility]it y of Vaccine Quad IM 3+ 00:00:00 [facility] Influenza Virus 2018-04-12 Completed [facility]it y of Vaccine Quad .5 mL 00:00:00 [facility] 6+ MO [facility] Influenza Virus 2018-04-12 Completed [facility]it y of Vaccine Quad IM 3+ 00:00:00 [facility] Influenza Virus 2018-04-12 Completed [facility]it y of Vaccine Quad .5 mL 00:00:00 [facility] 6+ [facility] Influenza Virus 2018-04-12 Completed [facility]it y of Vaccine Quad IM 3+ 00:00:00 [facility] Influenza Virus 2018-04-12 Completed [facility]it y of Vaccine Quad .5 mL 00:00:00 [facility] 6+ MO [facility] Influenza Virus 2018-04-12 Completed [facility]it y of Vaccine Quad IM 3+ 00:00:00 [facility] Influenza Virus 2018-04-12 Completed [facility]it y of Vaccine Quad .5 mL 00:00:00 [facility] 6+ MO [facility] Influenza Virus 2018-04-12 Completed [facility]it y of Vaccine Quad IM 3+ 00:00:00 [facility] Influenza Virus 2018-04-12 Completed Universit y of Vaccine Quad .5 mL 00:00:00 [facility] 6+ MO Branch Influenza Virus 2018-04-12 Completed [facility]it y of Vaccine Quad IM 3+ 00:00:00 [facility] Influenza Virus 2018-04-12 Completed [facility]it y of Vaccine Quad .5 mL 00:00:00 [facility] 6+ MO Branch Influenza Virus 2018-04-12 Completed [facility]it y of Vaccine Quad IM 3+ 00:00:00 [facility] Influenza Virus 2018-04-12 Completed Universit y of Vaccine Quad .5 mL 00:00:00 [facility] 6+ MO [facility] Influenza Virus 2018-04-12 Completed [facility]it y of Vaccine Quad IM 3+ 00:00:00 [facility] Influenza Virus 2018-04-12 Completed [facility]it y of Vaccine Quad .5 mL 00:00:00 [facility] 6+ MO [facility] Influenza Virus 2018-04-12 Completed Universit y of Vaccine Quad IM 3+ 00:00:00 [facility] Influenza Virus 2018-04-12 Completed Universit y of Vaccine Quad .5 mL 00:00:00 [facility] 6+ MO [facility] Influenza Virus 2018-04-12 Completed [facility]it y of Vaccine Quad IM 3+ 00:00:00 [facility] Influenza Virus 2018-04-12 Completed Universit y of Vaccine Quad .5 mL 00:00:00 [facility] 6+ MO [facility] Influenza Virus 2018-04-12 Completed [facility]it y of Vaccine Quad IM 3+ 00:00:00 [facility] Influenza Virus 2018-04-12 Completed [facility]it y of Vaccine Quad .5 mL 00:00:00 [facility] 6+ MO [facility] Influenza Virus 2018-04-12 Completed Universit y of Vaccine Quad IM 3+ 00:00:00 [facility] Influenza Virus 2018-04-12 Completed [facility]it y of Vaccine Quad .5 mL 00:00:00 [facility] 6+ MO [facility] Influenza Virus 2018-04-12 Completed [facility]it y of Vaccine Quad IM 3+ 00:00:00 [facility] Influenza Virus 2018-04-12 Completed Universit y of Vaccine Quad .5 mL 00:00:00 [facility] 6+ MO [facility] Influenza Virus 2018-04-12 Completed [facility]it y of Vaccine Quad IM 3+ 00:00:00 [facility] Influenza Virus 2018-04-12 Completed Universit y of Vaccine Quad .5 mL 00:00:00 [facility] 6+ MO Branch Influenza Virus 2018-04-12 Completed Universit y of Vaccine Quad IM 3+ 00:00:00 [facility] Influenza Virus 2018-04-12 Completed Universit y of Vaccine Quad .5 mL 00:00:00 [facility] 6+ MO [facility] Influenza Virus 2018-04-12 Completed Universit y of Vaccine Quad IM 3+ 00:00:00 [facility] Influenza Virus 2018-04-12 Completed Universit y of Vaccine Quad .5 mL 00:00:00 [facility] 6+ MO [facility] Influenza Virus 2018-04-12 Completed Universit y of Vaccine Quad IM 3+ 00:00:00 [facility] Influenza Virus 2018-04-12 Completed [facility]it y of Vaccine Quad .5 mL 00:00:00 [facility] 6+ MO [facility] Influenza Virus 2018-04-12 Completed Universit y of Vaccine Quad IM 3+ 00:00:00 [facility] Influenza Virus 2018-04-12 Completed [facility]it y of Vaccine Quad .5 mL 00:00:00 [facility] 6+ MO [facility] Influenza Virus 2018-04-12 Completed [facility]it y of Vaccine Quad IM 3+ 00:00:00 [facility] Influenza Virus 2018-04-12 Completed [facility]it y of Vaccine Quad .5 mL 00:00:00 [facility] 6+ [facility] Influenza Virus 2018-04-12 Completed [facility]it y of Vaccine Quad IM 3+ 00:00:00 [facility] Influenza Virus 2018-04-12 Completed [facility]it y of Vaccine Quad .5 mL 00:00:00 [facility] 6+ MO [facility] Influenza Virus 2018-04-12 Completed [facility]it y of Vaccine Quad IM 3+ 00:00:00 [facility] Influenza Virus 2018-04-12 Completed [facility]it y of Vaccine Quad .5 mL 00:00:00 [facility] 6+ MO [facility] Influenza Virus 2018-04-12 Completed [facility]it y of Vaccine Quad IM 3+ 00:00:00 [facility] Influenza Virus 2018-04-12 Completed [facility]it y of Vaccine Quad .5 mL 00:00:00 [facility] 6+ [facility] Influenza Virus 2018-04-12 Completed Universit y of Vaccine Quad IM 3+ 00:00:00 [facility] Influenza Virus 2018-04-12 Completed [facility]it y of Vaccine Quad .5 mL 00:00:00 [facility] 6+ MO [facility] Influenza Virus 2018-04-12 Completed Universit y of Vaccine Quad IM 3+ 00:00:00 [facility] Influenza Virus 2018-04-12 Completed [facility]it y of Vaccine Quad .5 mL 00:00:00 [facility] 6+ MO [facility] Influenza Virus 2018-04-12 Completed [facility]it y of Vaccine Quad IM 3+ 00:00:00 [facility] Influenza Virus 2018-04-12 Completed [facility]it y of Vaccine Quad .5 mL 00:00:00 [facility] 6+ MO [facility] Influenza Virus 2018-04-12 Completed [facility]it y of Vaccine Quad IM 3+ 00:00:00 [facility] Influenza Virus 2018-04-12 Completed [facility]it y of Vaccine Quad .5 mL 00:00:00 [facility] 6+ [facility] Influenza Virus 2018-04-12 Completed [facility]it y of Vaccine Quad IM 3+ 00:00:00 [facility] Influenza Virus 2018-04-12 Completed [facility]it y of Vaccine Quad .5 mL 00:00:00 [facility] 6+ [facility] Influenza Virus 2018-04-12 Completed [facility]it y of Vaccine Quad IM 3+ 00:00:00 [facility] Influenza Virus 2018-04-12 Completed [facility]it y of Vaccine Quad .5 mL 00:00:00 [facility] 6+ [facility] Influenza Virus 2018-04-12 Completed [facility]it y of Vaccine Quad IM 3+ 00:00:00 [facility] Influenza Virus 2018-04-12 Completed [facility]it y of Vaccine Quad .5 mL 00:00:00 [facility] 6+ [facility] Influenza Virus 2018-04-12 Completed [facility]it y of Vaccine Quad IM 3+ 00:00:00 [facility] Influenza Virus 2018-04-12 Completed [facility]it y of Vaccine Quad .5 mL 00:00:00 [facility] 6+ [facility] Influenza Virus 2018-04-12 Completed [facility]it y of Vaccine Quad IM 3+ 00:00:00 [facility] Influenza Virus 2018-04-12 Completed [facility]it y of Vaccine Quad .5 mL 00:00:00 [facility] 6+ [facility] Influenza Virus 2018-04-12 Completed [facility]it y of Vaccine Quad IM 3+ 00:00:00 [facility] Influenza Virus 2018-04-12 Completed [facility]it y of Vaccine Quad .5 mL 00:00:00 [facility] 6+ [facility] Influenza Virus 2018-04-12 Completed [facility]it y of Vaccine Quad IM 3+ 00:00:00 [facility] Branch Influenza Virus 2018-04-12 Completed Universit y of Vaccine Quad .5 mL 00:00:00 [facility] 6+ MO [facility] Influenza Virus 2018-04-12 Completed Universit y of Vaccine Quad IM 3+ 00:00:00 [facility] Branch Influenza Virus 2018-04-12 Completed Universit y of Vaccine Quad .5 mL 00:00:00 [facility] 6+ [facility] Influenza Virus 2018-04-12 Completed [facility]it y of Vaccine Quad IM 3+ 00:00:00 [facility] Influenza Virus 2018-04-12 Completed [facility]it y of Vaccine Quad .5 mL 00:00:00 [facility] IM 6+ MO Branch Influenza Virus 2018-04-12 Completed Universit y of Vaccine Quad IM 3+ 00:00:00 [facility] Vital Signs Vital Name Observation Time Observation Value Comments Source Systolic blood 2022-10-17 18:01:00 150 mm[Hg] [facility] Diastolic blood 2022-10-17 18:01:00 78 mm[Hg] Unive [facility] of [facility] Heart rate 2022-10-17 18:01:00 82 /min [facility] Body temperature 2022-10-17 18:00:00 36.72 Anisa [facility] Respiratory rate 2022-10-17 18:00:00 22 /min [facility] Body height 2022-10-17 18:00:00 193 cm [facility] Body weight 2022-10-17 18:00:00 147.374 kg [facility] BMI 2022-10-17 18:00:00 39.55 kg/m2 [facility] Oxygen saturation in 2022-10-17 18:00:00 98 /min [facility] Arterial blood by [facility] Pulse oximetry Branch Systolic blood 2022-04-20 13:28:00 161 mm[Hg] Univer sity of pressure [facility] Diastolic blood 2022-04-20 13:28:00 92 mm[Hg] Unive rsity of pressure [facility] Heart rate 2022-04-20 13:27:00 67 /min [facility] Body weight 2022-04-20 13:27:00 152.998 kg [facility] BMI 2022-04-20 13:27:00 41.06 kg/m2 [facility] Oxygen saturation in 2022-04-20 13:27:00 97 /min [facility] Arterial blood by [facility] Pulse oximetry Branch Procedures Procedure Date / Time Performing Clinician Source Performed [facility] PATIENT FINANCIAL 2022-10-17 17:54:11 [facility] [place] [facility] INSURANCE CORRESPONDENCE 2022-08-19 06:01:00 Doctor Unassigned, [facility] Name [facility] EXTERNAL PROVIDER RECORDS 2022-06-10 06:01:00 Doctor Unassigned, [facility] [place] POCT HEMOGLOBIN A1C TEST 2022-04-20 13:28:00 Neelima Escudero [facility] DIABETES TESTING REPORTS 2022-04-20 05:01:00 Doctor Unassigned, [facility] Name [facility] EXTERNAL PROVIDER RECORDS 2021-12-29 05:01:00 Doctor Unassigned, [facility] Name [facility] Plan of Care Planned Activity Planned Date Details Comments Source Future Scheduled 2022-12-04 Screening for [facility] 05:55:04 malignant neoplasm of colon (procedure) [code = 508607409] Future Scheduled 2022-12-04 [facility] 05:55:04 malignant neoplasm of colon (procedure) [code = 983174229] Future Scheduled 2022-12-04 SHINGLES VACCINES (1 [facility] 05[facility]:04 of 2) [code = SHINGLES VACCINES (1 of 2)] Future Scheduled 2022-12-04 INFLUENZA VACCINE [facility]:04 [code = INFLUENZA VACCINE] Future Scheduled 2022-12-04 [facility] 05:55:04 malignant neoplasm of colon (procedure) [code = 120251996] Future Scheduled 2022-12-04 [facility] 05:55:04 malignant neoplasm of colon (procedure) [code = 706827656] Future Scheduled 2022-12-04 [facility] 05:55:04 malignant neoplasm of colon (procedure) [code = 228755756] Future Scheduled 2022-12-04 COVID-19 VACCINE (#1) [facility] Test 05:55:04 [code = COVID-19 VACCINE (#1)] Future Scheduled 2022-06-05 COVID-19 VACCINE (#1) [facility] Test 06:33:18 [code = COVID-19 VACCINE (#1)] Future Scheduled 2022-06-05 COLONOSCOPY SCREENING [facility] Test 06:33:18 [code = COLONOSCOPY SCREENING] Future Scheduled 2022-06-05 SHINGLES VACCINES (1 Met [facility] Test 06:33:18 of 2) [code = SHINGLES VACCINES (1 of 2)] Future Scheduled 2022-06-05 INFLUENZA VACCINE [facility] 06:33:18 [code = INFLUENZA VACCINE] Encounters Start End Encounter Admission Attending Care Care Encounter Source Date/Time Date/Time Type Type Clinicians Facility Department ID 2021-04-20 Outpatient R NOEMÍ [facility] SE [id number] Univers 18:32:59 MIRNA Tripathi [facility] 2021-04-20 [email or web address] SE [id number] Univers 11:47:37 LUAN [facility] 2022-11-23 2022-11-23 Refroland [email or web address] 1.2.840.114 [id number] Univers 00:00:00 00:00:00 [facility] 350.1.13.10 it y of [place] 4.2.7.2.686 Cory as BRYAN?BLEA [phone] [address] MEDICAL OFFICE BUILDING 2022-11-21 2022-11-21 Refroland [email or web address]] 1.2.840.114 [id number] Univers 00:00:00 00:00:00 [facility] MULTISPEC 350.1.13.10 [place] [phone] Manuel Reina [address] [facility] 2022-11-09 2022-11-09 Outpatient R SIDRA [facility] [id number] Univers 12:40:00 12:40:00 ATTENDING ity of [facility] 2022-11-03 2022-11-03 [email or web address] 1.2.840.114 [id number] Univers 00:00:00 00:00:00 [facility] HEALTH 350.1.13.10 [facility] 4.2.7.2.686 Cory as BRYAN?BLEA [phone] [facility] [address] MEDICAL OFFICE [facility] 2022-11-03 2022-11-03 Telephone Kota MISINA 1.2.643.111 [id number] Univers 00:00:00 00:00:00 [facility] 350.1.13.10 [facility] 4.2.7.2.686 Cory as BRYAN?BLEA [phone] [facility] [address] [facility] OFFICE [facility] 2022-10-17 2022-10-17 Outpatient R VIBHA [facility] [id number] Univers 13:00:00 13:31:43 NORRIS ity of [facility] 2022-10-17 2022-10-17 Urgent Norris Dunne B [facility] 1.2.840.1 [id number] Univers 13:00:00 13:31:43 Care Unknown, [facility] HEALTH 350.1.13.10 ity of [place] 4.2.7.2.686 Cory as BRYAN?BLEA [phone] [facility] [address] MEDICAL OFFICE [facility] 2022-10-17 2022-10-17 Orders Doctor LETHA 1.2.840.114 [id number] Univers 00:00:00 00:00:00 Only Unassigned, CORKY 350.1.13.10 ity of [place] [facility] 4.2.7.2.686 Cory as [phone] [address] 2022-10-17 2022-10-17 [facility]ill [email or web address]] 1.2.840.114 [id number] Univers 00:00:00 00:00:00 [facility] HEALTH 350.1.13.10 it [facility] 4.2.7.2.686 Cory as BRYAN?BLEA [id number] [facility] [address] MEDICAL OFFICE [facility] 2022-10-17 2022-10-17 Patient [email or web address] 1.2.840.114 [id number] Univers 00:00:00 00:00:00 Secure Msg Photos [employer] Like HEALTH 350.1.13.10 ity of [place] 4.2.7.2.686 Cory as BRYAN?BLEA [id number] [address] OFFICE [facility] 2022-10-04 2022-10-04 Outpatient R SIDRA, [facility] [id number] Univers 13:40:00 13:40:00 ATTENDING ity of [facility] 2022-09-19 2022-09-19 Refill [email or web address] 1.2.840.114 [id number] Univers 00:00:00 00:00:00 [facility] ZeomatrixPEC 350.1.13.10 [place] [phone] [address] [facility] 2022-09-13 2022-09-13 Refill [email or web address]] 1.2.840.114 [id number] Univers 00:00:00 00:00:00 Photos [employer] Like HEALTH 350.1.13.10 it [facility] 4.2.7.2.686 Cory as BRYAN?BLEA [id number] [address] OFFICE [facility] 2022-09-08 2022-09-08 Refill [email or web address]] 1.2.840.114 [id number] Univers 00:00:00 00:00:00 [facility] MULTISPEC 350.1.13.10 [place] [phone] [address] [facility] 2022-08-25 2022-08-25 Telephone [email or web address]] 1.2.168.689 [id number] Univers 00:00:00 00:00:00 Went[place]man MULTISPEC 350.1.13.10 it[place] [phone] [address] [facility] 2022-08-19 2022-08-19 Telephone [email or web address]] 1.2.316.874 [id number] Univers 00:00:00 00:00:00 [facility] 350.1.13.10 it[place] of [place] [id number] [address] [facility] 2022-08-19 2022-08-19 Orders Doctor LETHA 1.2.840.114 [id number] Univers 00:00:00 00:00:00 Only Unassigned, CORKY 350.1.13.10 ity of [place] [facility] 4.2.7.2.686 Cory as [phone] [address] 2022-08-17 2022-08-17 Patient Kota [facility] 1.2.840.114 [id number] Univers 00:00:00 00:00:00 Secure [facility] [place] 350.1.13.10 ity of [place] 4.2.7.2.686 Cory as BRYAN?BLEA [phone] [address] MEDICAL OFFICE BUILDING 2022-08-15 2022-08-15 Refill [email or web address]] 1.2.840.114 [id number] Univers 00:00:00 00:00:00 [facility] 350.1.13.10 [place] [phone] [address] [facility] 2022-08-03 2022-08-03 Outpatient R SIDRA [facility] [id number] Univers 10:40:00 10:40:00 ATTENDING ity of [facility] 2022-07-18 2022-07-18 Refill Kota MISINA 1.2.840.114 [id number] Univers 00:00:00 00:00:00 [facility] 350.1.13.10 it y of [place] 4.2.7.2.686 Cory as BRYAN?BLEA [phone] [address] MEDICAL OFFICE BUILDING 2022-07-18 2022-07-18 Patient KotaENDICOTT, UTSINA 1.2.840.114 [id number] Univers 00:00:00 00:00:00 Secure [facility] [place] 350.1.13.10 ity of [place] 4.2.7.2.686 Cory as BRYAN?BLEA [id number] [address] MEDICAL OFFICE BUILDING 2022-07-12 2022-07-12 Patient Kota, [facility] 1.2.840.114 [id number] Univers 00:00:00 00:00:00 Secure Msg Neelima MULTISPEC 350.1.13.10 it[place] [phone] [facility] AND [address] [facility] 2022-06-10 2022-06-10 Orders Doctor LETHA 1.2.840.114 [id number] Univers 00:00:00 00:00:00 Only Unassigned, CORKY 350.1.13.10 ity of [place] [facility] 4.2.7.2.686 Cory as [id number] [place] [address] 2022-06-08 2022-06-08 Refill Escudero, [facility] 1.2.840.114 [id number] Univers 00:00:00 00:00:00 [employer] 350.1.13.10 it y of [place] 4.2.7.2.686 Cory as BRYAN?BLEA [phone] [address] MEDICAL OFFICE BUILDING 2022-06-08 2022-06-08 Telephone Escudero, [facility] 1.2.380.720 [id number] Univers 00:00:00 00:00:00 [employer] 350.1.13.10 it y of [place] 4.2.7.2.686 Cory as BRYAN?BLEA [id number] [address] MEDICAL OFFICE BUILDING 2022-06-08 2022-06-08 Refill Escudero, MIMB 1.2.840.114 [id number] Univers 00:00:00 00:00:00 [employer] 350.1.13.10 it y of [place] 4.2.7.2.686 Cory as BRYAN?BLEA [phone] [address] MEDICAL OFFICE BUILDING 2022-05-30 2022-05-30 Refill Escudero, MIMB 1.2.840.114 [id number] Univers 00:00:00 00:00:00 [employer] 350.1.13.10 it y of [place] 4.2.7.2.686 Cory as BRYAN?BLEA [phone] [address] OFFICE [facility] 2022-05-27 2022-05-27 Refill [email or web address]] 1.2.840.114 [id number] Univers 00:00:00 00:00:00 [facility] HEALTH 350.1.13.10 it y of [place] 4.2.7.2.686 Cory as BRYAN?BLEA [id number] [address] MEDICAL OFFICE [facility] 2022-05-27 2022-05-27 Telephone [facility] 1.2.216.113 [id number] Univers 00:00:00 00:00:00 [facility] 350.1.13.10 it y of [place] 4.2.7.2.686 Cory as BRYAN?BLEA [phone] [address] OFFICE [facility] 2022-05-25 2022-05-25 Telephone [email or web address] 1.2.024.122 [id number] Univers 00:00:00 00:00:00 [facility] 350.1.13.10 it y of [place] 4.2.7.2.686 Cory as BRYAN?BLEA [phone] [address] OFFICE [facility] 2022-04-20 2022-04-20 Outpatient [facility] [id number] Univers 08:30:00 09:14:23 [facility] ity of [facility] 2022-04-20 2022-04-20 Office [email or web address] 1.2.840.114 [id number] Univers 08:30:00 09:14:23 Visit [facility] 350.1.13.10 it y of [place] 4.2.7.2.686 Cory as BRYAN?BLEA [phone] [address] OFFICE [facility] 2022-04-20 2022-04-20 Orders Doctor MONAE 1.2.840.114 [id number] Univers 00:00:00 00:00:00 Only Unassigned, CORKY 350.1.13.10 ity of [place] [facility] 4.2.7.2.686 Cory as [id number] [address] 2022-04-17 2022-04-17 Refill Escudero, MIMB 1.2.840.114 [id number] Univers 00:00:00 00:00:00 Went[place] MULTISPEC 350.1.13.10 [place] [id number] [address] [facility] 2022-03-24 2022-03-24 Refill Escudero, MIMB 1.2.840.114 [id number] Univers 00:00:00 00:00:00 Photos [employer] Like HEALTH 350.1.13.10 it y of [place] 4.2.7.2.686 Cory as BRYAN?BLEA [id number] [address] MEDICAL OFFICE BUILDING 2022-03-20 2022-03-20 Refill Escudero, MIMB 1.2.840.114 [id number] Univers 00:00:00 00:00:00 Wentong HEALTH 350.1.13.10 it y of [place] 4.2.7.2.686 Cory as BRYAN?BLEA [phone] [address] MEDICAL OFFICE BUILDING 2022-03-14 2022-03-14 Refill Escudero, MIMB 1.2.840.114 [id number] Univers 00:00:00 00:00:00 [place] MULTISPEC 350.1.13.10 [place] [id number] [address] [facility] 2022-03-14 2022-03-14 Patient Escudero, MIMB 1.2.840.114 [id number] Univers 00:00:00 00:00:00 Secure Msg [place] MULTISPEC 350.1.13.10 [place] [id number] [address] [facility] 2022-03-01 2022-03-01 Patient Escudero, [facility] 1.2.840.114 [id number] Univers 00:00:00 00:00:00 Secure Msg [place] HEALTH 350.1.13.10 ity of [place] 4.2.7.2.686 Cory as BRYAN?BLEA [id number] [address] MEDICAL OFFICE BUILDING 2022-01-13 2022-01-13 Patient Escudero, [facility] 1.2.840.114 [id number] Univers 00:00:00 00:00:00 Secure Msg [place] MULTISPEC 350.1.13.10 [place] [phone] [address] [facility] 2022-01-13 2022-01-13 Refill Escudero, MIMB 1.2.840.114 [id number] Univers 00:00:00 00:00:00 [place] HEALTH 350.1.13.10 [facility] 4.2.7.2.686 Cory as BRYAN?BLEA [id number] [address] OFFICE [facility] 2021-12-29 2021-12-29 Orders Doctor LETHA 1.2.840.114 [id number] Univers 00:00:00 00:00:00 Only Unassigned, CORKY 350.1.13.10 [facility] 4.2.7.2.686 Cory as [phone] [address] 2021-12-23 2021-12-23 Patient Escudero, [facility] 1.2.840.114 [id number] Univers 00:00:00 00:00:00 Secure Msg [place] HEALTH 350.1.13.10 ity of [place] 4.2.7.2.686 Cory as BRYAN?BLEA [id number] [address] OFFICE [facility] 2021-12-15 2021-12-15 Patient Escudero, MIMB 1.2.840.114 [id number] Univers 00:00:00 00:00:00 Secure Msg [place] MULTISPEC 350.1.13.10 [place] [id number] [address] [facility] 2021-12-13 2021-12-13 Refill Escudero, [facility] 1.2.840.114 [id number] Univers 00:00:00 00:00:00 Wentong HEALTH 350.1.13.10 it y of [place] 4.2.7.2.686 Cory as BRYAN?BLEA [phone] Fl marlene [address] MEDICAL OFFICE BUILDING 2021-12-09 2021-12-09 Office Escudero, [facility] 1.2.840.114 [id number] Univers 15:00:00 15:24:18 Visit [facility] [employer] 350.1.13.10 it y of [place] 4.2.7.2.686 Cory as BRYAN?BLEA [phone] [address] MEDICAL OFFICE [facility] 2021-12-09 2021-12-09 Outpatient R ESCUDERO, [facility] [id number] Univers 15:00:00 15:24:18 [facility] 2021-12-09 2021-12-09 Outpatient R ESCUDERO, [facility] [id number] Univers 15:00:00 15:00:00 [facility] 2021-12-08 2021-12-08 Telephone Escudero, [facility] 1.2.798.820 [id number] Univers 00:00:00 00:00:00 [facility] [employer] 350.1.13.10 it y of [place] 4.2.7.2.686 Cory as BRYAN?BLEA [phone] [address] MEDICAL OFFICE BUILDING 2021-11-04 2021-11-04 Patient Escudero, [facility] 1.2.840.114 [id number] Univers 00:00:00 00:00:00 Secure Msg Glassmapkingman [employer] 350.1.13.10 ity of [place] 4.2.7.2.686 Cory as BRYAN?BLEA [id number] [address] MEDICAL OFFICE BUILDING 2021-11-04 2021-11-04 Telephone Escudero, [facility] 1.2.441.634 [id number] Univers 00:00:00 00:00:00 [facility] HEALTH 350.1.13.10 it y of [place] 4.2.7.2.686 Cory as BRYAN?BLEA [phone] [address] MEDICAL OFFICE BUILDING 2021-10-20 2021-10-20 Patient Escudero, [facility] 1.2.840.114 [id number] Univers 00:00:00 00:00:00 Secure Msg [place] MULTISPEC 350.1.13.10 [place] [id number] [address] [facility] 2021-10-19 2021-10-19 Refill oKta, [facility] 1.2.840.114 [id number] Univers 00:00:00 00:00:00 [facility] 350.1.13.10 it y of [place] 4.2.7.2.686 Cory as BRYAN?BLEA [phone] Fl dical [address] MEDICAL OFFICE BUILDING 2021-10-13 2021-10-13 Patient Kota, MIMB 1.2.840.114 [id number] Univers 00:00:00 00:00:00 Secure Msg [place] MULTISPEC 350.1.13.10 [place] [id number] [address] [facility] 2021-10-05 2021-10-05 Patient Kota, MISINA 1.2.840.114 [id number] Univers 00:00:00 00:00:00 Secure Msg [place] MULTISPEC 350.1.13.10 [place] [id number] [address] [facility] 2021-09-20 2021-09-20 Refill Kota MIM[facility] 1.2.840.114 [id number] Univers 00:00:00 00:00:00 [facility] 350.1.13.10 i ty [place].2.7.2.[place] [phone] [place] [address] [address] BUILDING 2021-09-16 2021-09-16 Patient Kota, MIMB 1.2.840.114 [id number] Univers 00:00:00 00:00:00 Secure Msg [place] MULTISPEC 350.1.13.10 it[place] [id number] [address] [facility] 2021-09-15 2021-09-15 Office Kota, [facility] 1.2.840.114 [id number] Univers 16:00:00 16:48:56 Visit [facility] 350.1.13.10 it y of [place] 4.2.7.2.686 Cory as BRYAN?BLEA [id number] [facility] [address] MEDICAL OFFICE BUILDING 2021-09-15 2021-09-15 Outpatient R KOTA [facility] [id number] Univers 16:00:00 16:48:56 WENT[place] ity [facility] 2021-09-15 2021-09-15 Outpatient R KOTA, [facility] [id number] Univers 16:00:00 16:00:00 [facility] 2021-09-03 2021-09-03 [email or web address] 1.2.840.114 [id number] Univers 00:00:00 00:00:00 [facility] 350.1.13.10 i ty of [place]2.[place].2.[place] [facility] [phone] [facility] 2021-08-01 2021-08-01 Refroland Escudero [facility] 1.2.840.114 [id number] Univers 00:00:00 00:00:00 [facility] MULTISPEC 350.1.13.10 ity of [place].686 [place] [phone] [facility] AND [place] [address] [facility] 2021-06-04 2021-06-04 Orders Doctor LETHA 1.2.840.114 [id number] Univers 00:00:00 00:00:00 Only Unassigned, CORKY 350.1.13.10 ity of [place] [facility] 4.2.7.2.686 Cory as [phone] [facility] [address] 2021-05-22 2021-05-22 Cesario De Anda MISINA 1.2.359.207 [id number] Univers 00:00:00 00:00:00 Sol HEALTH 350.1.13.10 [facility] 4.2.7.2.686 Cory as BRYAN?BLEA [phone] Me dic[address] MEDICAL OFFICE BUILDING 2021-05-21 2021-05-21 Urgent Sol De Anda [facility] 1.2.840.114 [id number] Univers 17:04:41 17:58:06 Care Unknown, [facility] HEALTH 350.1.13.10 ity of [place] 4.2.7.2.686 Cory as BRYAN?BLEA [id number] [address] OFFICE [facility] 2021-05-21 2021-05-21 Outpatient R SIDRA, [facility] [id number] Univers 17:00:00 17:58:06 ATTENDING ity [facility] 2021-05-21 2021-05-21 Outpatient R ADILSON [facility] [id number] Univers 17:00:00 17:58:06 [facility] 2021-05-19 2021-05-19 Telephone [email or web address] 1.2.632.589 [id number] Univers 00:00:00 00:00:00 [facility] 350.1.13.10 it y of [place] 4.2.7.2.686 Cory as BRYAN?BLEA [phone] [address] OFFICE [facility] 2021-05-17 2021-05-17 [facility]ill [email or web address] 1.2.840.114 [id number] Univers 00:00:00 00:00:00 [facility] 350.1.13.10 i ty [place] [id number] [address] 2021-05-12 2021-05-12 Outpatient R KOTA [facility] [id number] Univers 15:30:00 15:30:00 [facility] 2021-05-12 2021-05-12 Outpatient R KOTA [facility] [id number] Univers 15:30:00 15:07:38 [facility] 2021-05-12 2021-05-12 Office [email or web address] 1.2.840.114 [id number] Univers 13:01:02 15:07:38 Visit [facility] 350.1.13.10 it y of [place] 4.2.7.2.686 Cory as BRYAN?BLEA [phone] [address] MEDICAL OFFICE BUILDING 2021-05-12 2021-05-12 Orders Doctor LETHA 1.2.840.114 [id number] Univers 00:00:00 00:00:00 Only Unassigned, CORKY 350.1.13.10 ity of [place] [facility] 4.2.7.2.686 Cory as [id number] [address] 2021-05-04 2021-05-04 Patient Kota MIS[facility] 1.2.840.114 [id number] Univers 00:00:00 00:00:00 Secure Msg [place] MULTISPEC 350.1.13.10 [place] [phone] [address] [facility] 2021-04-21 2021-04-21 Patient Valentin MISINA 1.2.840.114 [id number] Univers 00:00:00 00:00:00 Secure Msg Brandie MULTISPEC 350.1.13.10 [place] [id number] [address] [facility] 2021-04-21 2021-04-21 Telephone Kota [facility] 1.2.056.584 [id number] Univers 00:00:00 00:00:00 [facility] 350.1.13.10 [place] 4.2.7.2.686 Cory as BRYAN?BLEA [phone] [address] MEDICAL OFFICE [facility] 2021-04-20 2021-04-20 Patient Kota MISINA 1.2.840.114 [id number] Univers 00:00:00 00:00:00 Secure Msg Wentong [place] 350.1.13.10 [place] [phone] [address] 2021-04-12 2021-04-12 Refill Kota [facility] 1.2.840.114 [id number] Univers 00:00:00 00:00:00 [place]ong [place] 350.1.13.10 [place] [phone] Fl dical nal [address] [place] [address] 2021-04-10 2021-04-10 Telephone Kota, [facility] 1.2.886.782 [id number] Univers 00:00:00 00:00:00 Wentong [place] 350.1.13.10 i ty [facility] [place] [phone] [address] 2021-03-31 2021-03-31 Patient Kota, MIMB 1.2.840.114 [id number] Univers 00:00:00 00:00:00 Secure Msg Wentong [place] 350.1.13.10 [place] [phone] [address] [facility] 2021-03-31 2021-03-31 Patient Kota, [facility] 1.2.840.114 [id number] Univers 00:00:00 00:00:00 Secure Msg [place] [facility] 350.1.13.10 [place] [phone] [address] [facility] 2021-03-30 2021-03-30 Patient Kota, MIMB 1.2.840.114 [id number] Univers 00:00:00 00:00:00 Secure Msg [facility] 350.1.13.10 ity of [place] 4.2.7.2.686 Cory as Bryan?Blea [phone] [address] Office [facility] 2021-03-24 2021-03-24 Telephone Kota, MIMB 1.2.012.023 [id number] Univers 00:00:00 00:00:00 [facility] 350.1.13.10 it y of [place] 4.2.7.2.686 Cory as Bryan?Blea [phone] [address] Office [facility] 2021-03-16 2021-03-16 Telephone Kota, [facility] 1.2.034.963 [id number] Univers 00:00:00 00:00:00 Neelima Dyson 350.1.13.10 [place] [phone] [facility] 2021-03-13 2021-03-13 Patient Escudero, [facility] 1.2.840.114 [id number] Univers 00:00:00 00:00:00 Secure Msg Chrisangelo [place] 350.1.13.10 [place] [phone] [facility] 2021-03-13 2021-03-13 Patient Escudero, [facility] 1.2.840.114 [id number] Univers 00:00:00 00:00:00 Secure Msg Neelima [place] 350.1.13.10 [place] [phone] [address] 2021-03-12 2021-03-12 Orders Doctor LETHA 1.2.840.114 [id number] Univers 00:00:00 00:00:00 Only Unassigned, CORKY 350.1.13.10 ity of [place] [facility] 4.2.7.2.686 Cory as [phone] [address] 2021-03-11 2021-03-11 Telephone [facility] 1.2.111.162 [id number] Univers 00:00:00 00:00:00 Neelima Dyson 350.1.13.10 [place] [phone] Fl dical nal [address] [facility] 2021-02-18 2021-02-18 [facility] 1.2.840.114 [id number] Univers 09:14:00 13:31:00 Mirna Abdul 350.1.13.10 ity of [id number] [id number] [facility] [address] 2021-02-18 2021-02-18 Surgery [facility] [id number] Univers 11:43:00 12:20:00 Mirna tripathi 350.1.13.10 [id number] [id number] [facility] [address] 2021-02-17 2021-02-17 Laboratory Only, Adc Test [facility] 1.2.840. 114 [id number] Univers 11:12:17 11:27:17 Only Mirna Fernandez 350.1.1 3.10 [place] [id number] [facility] [address] 2021-02-17 2021-02-17 Outpatient R NOEMÍ [facility] [id number] Univers 11:15:00 11:15:00 MIRNA Tripathi o f [facility] 2021-02-01 2021-02-01 Orders Doctor LETHA 1.2.840.114 [id number] Univers 00:00:00 00:00:00 Only Unassigned, CORKY 350.1.13.10 ity of [place] [facility] 4.2.7.2.686 Cory as [phone] [facility] [address] 2021-01-14 2021-01-14 Outpatient Charly ESCUDERO [facility] [id number] Univers 16:00:00 16:00:00 [facility] 2020-12-28 2020-12-28 Outpatient R FERNANDO [facility] [id number] Univers 11:40:00 11:40:00 DAX [facility] 2020-12-26 2020-12-26 Outpatient TWIN SEYMOUR 100 [id number] Sharri 00:00:00 00:00:00 Seybol d 2020-12-24 2020-12-24 Outpatient Charly ESCUDERO [facility] [id number] Univers 11:45:00 11:45:00 [facility] 2020-12-24 2020-12-24 Outpatient TWIN SEYMOUR 100 [id number] Sharri 00:00:00 00:00:00 Seybol d 2020-09-06 2020-09-06 Outpatient [facility] [id number] Univers 13:30:00 13:30:00 [facility] 2020-08-16 2020-08-16 Outpatient [facility] [id number] Univers 13:40:00 13:40:00 [facility] 2020-06-17 2020-06-17 [facility] [id number] Univers 09:00:00 09:00:00 [facility] 2020-04-03 2020-04-03 [email or web address] 1.2.840.114 [id number] 00:00:00 00:00:00 Neelima Dyson 350.1.13.10 [place] [id number] Professio [id number] nal 220 [facility] 2020-02-06 2020-02-06 Office [email or web address] 1.2.840.114 [id number] 13:55:45 14:59:00 Visit Neelima [place] 350.1.13.10 [place] 4.2.7.2.686 Professio [phone] nal 220 [facility] 2020-02-06 2020-02-06 Outpatient R KOTA [facility] [id number] Univers 14:00:00 14:00:00 [facility] 2019-12-25 2019-12-25 Out[facility] [id number] Univers 09:00:00 09:00:00 [facility] 2019-08-31 2019-08-31 Outpatient R TEJAS [facility] [id number] Univers 15:30:00 15:30:00 YANI [facility] 2019-08-21 2019-08-21 Out[facility] [id number] Univers 08:30:00 08:30:00 [facility] Results Test Description Test Time Test Comments Results Result Comments Source POCT HEMOGLOBIN A1C TEST 2022-04-20 13:28:00 Test Item Value Reference Range Interpretation Comme nts POCT HBA1C (test code = 4548-4) 7.2 % 4-6 A Lab Interpretation (test code = 17136-4) [facility] [id number] 13:28:00 Test Item Value Reference Range Interpretation Comments POCT HBA1C (test code = 4548-4) 7.2 % 4-6 A Lab Interpretation (test code = Abnormal 35256-9) [facility]
--- NOTE | 2022-12-04 23:08 | ER ---
Nurse's Notes [facility] Name: Adalid Chaves Jr Age: 52 yrs Sex: Male : 1970 Arrival Date: 12/04/2022 Time: 21:53 Bed 16 Private MD: Diagnosis: Unspecified open wound of left lesser toe(s) without damage to nail, initial encounter Presentation: 12/04 22:16 Chief complaint: Patient states: "I have a blister that bust and I'm worried about as6 infection". Coronavirus screen: At this time, the client does not indicate any symptoms associated with coronavirus-19. Ebola Screen: No symptoms or risks identified at this time. Initial Sepsis Screen: Does the patient meet any 2 criteria? No. Patient's initial sepsis screen is negative. Does the patient have a suspected source of infection? No. Patient's initial sepsis screen is negative. Risk Assessment: Do you want to hurt yourself or someone else? Patient reports no desire to harm self or others. Onset of symptoms was December 04, 2022. 22:16 Method Of Arrival: Ambulatory as6 22:16 Acuity: YENNY 5 as6 Triage Assessment: 23:15 General: Appears in no apparent distress. comfortable, Behavior is calm, cooperative. aa9 Pain: Complains of pain in L foot. Historical: - Allergies: 22:17 bee venom protein (honey bee); as6 - PMHx: 22:17 Diabetes - IDDM; Hypertension; Low Iron; as6 - PSHx: 22:17 bunionectomy; left knee; as6 - Immunization history:: Client reports receiving the 2nd dose of the Covid vaccine, pfizer. - Social history:: Smoking status: Patient denies any tobacco usage or history of. Screenin:15 [facility] ED Fall Risk Assessment (Adult) History of falling in the last 3 months, aa9 including since admission No falls in past 3 months (0 pts) Confusion or Disorientation No (0 pts) Intoxicated or Sedated No (0 pts) Impaired Gait No (0 pts) Mobility Assist Device Used No (0 pt) Altered Elimination No (0 pt) Score/Fall Risk Level 0 - 2 = Low Risk Oriented to surroundings, Maintained a safe environment, Educated pt \\T\\ family on fall prevention, incl call for assistance when getting out of bed. Abuse screen: Denies threats or abuse. Denies injuries from another. Nutritional screening: No deficits noted. Tuberculosis screening: No symptoms or risk factors identified. Assessment: 22:44 Reassessment: Patient appears in no apparent distress at this time. Patient and/or aa9 family updated on plan of care and expected duration. Pain level reassessed. Patient is alert, oriented x 3, equal unlabored respirations, skin warm/dry/pink. 23:02 Reassessment: Andie SYED at bedside. aa9 Vital Signs: 22:16 BP 159 / 75; Pulse 81; Resp 18 S; Temp 97.5(TE); Pulse Ox 95% on R/A; Weight 145.15 kg as6 (R); Height 6 ft. 4 in. (R); Pain 6/10; 23:16 BP 152 / 82; Pulse 82; Resp 19; Temp 98.6; Pulse Ox 99% on R/A; aa9 22:16 Body Mass Index 38.95 (145.15 kg, 193.04 cm) as6 22:16 Pain Scale: Adult as6 ED Course: 21:55 Patient arrived in ED. ja2 22:03 Abraham Chaves PA is PHCP. cp 22:03 Cecil Morse MD is Attending Physician. cp 22:16 Arm band placed on. as6 22:17 Triage completed. as6 22:19 Patient has correct armband on for positive identification. aa9 22:19 Warm blanket given. aa9 22:44 Morena Ferrell, DIANA is Primary Nurse. aa9 23:15 No provider procedures requiring assistance completed. Patient did not have IV access aa9 during this emergency room visit. Administered Medications: 23:14 Drug: LevOfloxacin PO 750 mg Route: PO; aa9 Medication: 23:15 VIS not applicable for this client. aa9 Outcome: 23:07 Discharge ordered by MD. cp 23:15 Discharged to home ambulatory. aa9 23:15 Condition: stable 23:15 Discharge instructions given to patient, Instructed on discharge instructions, follow up and referral plans. medication usage, Demonstrated understanding of instructions, follow-up care, medications, Prescriptions given X 1. 23:16 Patient left the ED. aa9 Signatures: Abraham Chaves PA PA cp Alexander, Jessica ja2 Jefry Garcia RN RN as6 Morena Ferrell, RN RN aa9
--- NOTE | 2022-12-04 23:08 | EDPHYS ---
Physician Documentation [facility] Name: Adalid Chaves Jr Age: 52 yrs Sex: Male : 1970 Arrival Date: 12/04/2022 Time: 21:53 Bed 16 Private MD: ED Physician Cecil Morse HPI: 12/04 22:30 This 52 yrs old Male presents to ER via Ambulatory with complaints of Blister cp on Foot. 22:30 Patient is a 52-year-old male with a history of insulin-dependent diabetes who presents cp to the emergency room with concern for wounds to his left foot. Patient reports he has had a open wound between the fourth and fifth toes of the left foot that have been draining here for a while. It appears to be getting better but has not quite healed and so he wanted it looked at but since yesterday he developed what appeared like a blister to his left third toe that ruptured earlier today. Patient denies any fevers but reports his sugars have been running high recently since starting a Medrol Dosepak. 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 Historical: - Allergies: 22:17 bee venom protein (honey bee); as6 - PMHx: 22:17 Diabetes - IDDM; Hypertension; Low Iron; as6 - PSHx: 22:17 bunionectomy; left knee; as6 - Immunization history:: Client reports receiving the 2nd dose of the Covid vaccine, pfizer. - Social history:: Smoking status: Patient denies any tobacco usage or history of. ROS: 22:33 Constitutional: Negative for body aches, chills, fever, poor PO intake. cp 22:33 All other systems are negative. Exam: 22:35 Constitutional: The patient appears in no acute distress, alert, awake, cp non-diaphoretic, non-toxic, well developed, well nourished, obese. 22:35 Head/Face: Normocephalic, atraumatic. cp 22:35 Musculoskeletal/extremity: Examination of patient's left foot shows well-healed amputation of second toe, there is a superficial wound noted to the dorsum of the left third toe with minimal redness and no drainage expressed. There is a small open wound noted to the webspace of the fourth and fifth toes with very minimal drainage able to be expressed. No significant redness swelling noted to left foot and no pain to palpation. Vital Signs: 22:16 BP 159 / 75; Pulse 81; Resp 18 S; Temp 97.5(TE); Pulse Ox 95% on R/A; Weight 145.15 kg as6 (R); Height 6 ft. 4 in. (R); Pain 6/10; 23:16 BP 152 / 82; Pulse 82; Resp 19; Temp 98.6; Pulse Ox 99% on R/A; aa9 22:16 Body Mass Index 38.95 (145.15 kg, 193.04 cm) as6 22:16 Pain Scale: Adult as6 MDM: 22:19 Patient medically screened. cp 23:07 Data reviewed: vital signs, nurses notes. cp 23:07 Differential diagnosis: cellulitis, abscess, osteomyelitis. I considered the following cp discharge prescriptions or medication management in the emergency department Medications were administered in the Emergency Department. See MAR. Care significantly affected by the following chronic conditions: Diabetes. Counseling: I had a detailed discussion with the patient and/or guardian regarding: the historical points, exam findings, and any diagnostic results supporting the discharge/admit diagnosis, the need for outpatient follow up, a family practitioner, to return to the emergency department if symptoms worsen or persist or if there are any questions or concerns that arise at home. ED course: Vital signs stable. Discussed wound care and recommendation to follow-up with his primary care physician for possible referral to wound care. Will prescribe 7-day course of Levaquin at patient's request and his concern for infection. Patient instructed to continue to monitor and return to emergency room worsening symptoms. Administered Medications: 23:14 Drug: LevOfloxacin PO 750 mg Route: PO; aa9 Disposition Summary: 12/04/22 23:07 Discharge Ordered Location: Home cp Problem: new cp Symptoms: have improved cp Condition: Stable cp Diagnosis - Unspecified open wound of left lesser toe(s) without damage to nail, initial cp encounter Followup: cp - With: Private Physician - When: 2 - 3 days - Reason: Wound Recheck Discharge Instructions: - Discharge Summary Sheet cp - Wound Infection cp - Wound Care, Adult cp Forms: - Medication Reconciliation Form cp - Thank You Letter cp - Antibiotic Education cp - Prescription Opioid Use cp Prescriptions: - levofloxacin 500 mg Oral Tablet - take 1 tablet by ORAL route once daily for 7 days start evening of 12-05-2022; 6 cp tablet; Refills: 0, Product Selection Permitted Addendum: 12/06/2022 07:29 Co-signature as Attending Physician, Cecil Morse MD I agree with the assessment s p4 and plan of care. I reviewed the patient's care provided by the Advanced Practice Provider and agree with the diagnosis and treatment plan. Signatures: Abraham Chaves PA PA cp Slawson, Ashby, RN RN as6 Morena Ferrell RN RN aa9 Cecil Morse MD MD sp4
[2022-12-04] MEDS ORDERED: levoFLOXacin 750 MG TAB ONE (23:21)
[2022-12-04 23:23] VITALS: BP 152/82; TEMP 98.6; O2SAT 99
== END 2022-12-04 23:16 | disposition home or self-care (01) ==
LOC: ER 21:53
DX: S91.105A Unspecified open wound of left lesser toe(s) without damage to nail, initial encounter (principal); E11.9 Type 2 diabetes mellitus without complications; I10 Essential (primary) hypertension; Z91.030 Bee allergy status
CPT/HCPCS: 99283

== ENCOUNTER 2022-12-09 01:27 | Emergency (ER) | payer OTHER ==
--- OUTSIDE RECORDS SUMMARY | 2022-12-09 01:43 | XMS REPORT | Continuity of Care Document ---
:1970 Author Organization [facility] t Address [address] [facility] [address] [place] [address] Care Team Providers Name Role Phone Asked, No Pcp Primary Care Physician Unavailable MIRNA FERNANDEZ Attending Clinician Unavailable LUAN MEJIA Attending Clinician Unavailable NEELIMA ESCUDERO Attending Clinician Unavailable Neelima Escudero MD Attending Clinician UNKNOWN, ATTENDING Attending Clinician Unavailable NORRIS DUNNE Attending Clinician Unavailable Norris Barron B Attending Clinician Unknown, Attending Attending Clinician Unavailable Doctor Unassigned, [place] Attending Clinician Unavailable Sol Araujo Attending Clinician [...] Number Effective Date Expiration Date Stephanie villarreal [facility] [id number] 2018 PPO 00:00:00 [place] [id number] 2020 00:00:00 Problems Condition Condition Condition Status [...] (BMI 7-29 ity of 30-39.9) 30-39.9) 00:00: [place] 00 Medical Branch Acute Acute Disease Active Univers blood loss blood loss 7-29 it y of anemia anemia 00:00: [place] 00 Medical Branch Morbid Morbid Disease Active Univers obesity, obesity, 6-05 ity of unspecifie unspecifie 00:00: Joselito munguia d obesity d obesity 00 Medi jada type type Branch 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 3-30 ity of 00:00: [place] 00 Medical Branch Dyslipidem Dyslipidem Disease Active 2015-06 U newers ia ia 2-06 ity of 00:00: [place] [facility] Neuropathy Neuropathy Disease Active 2015-06 U nivers 2-06 ity of 00:00: [place] 00 Medical Branch Type 2 Type 2 Disease Active Univers diabetes, diabetes, 906 ity of uncontroll uncontroll 00:00: Joselito munguia ed, with ed, with 00 Medica l neuropathy neuropathy Br anch Essential Essential Disease Active Uni vers hypertensi hypertensi 9 it y of on on 00:00: [place] [facility] HLD HLD Disease Active Univers (hyperlipi (hyperlipi 02-23 it y of demia) demia) 00:00: [place] [address] Medical Branch Allergies, Adverse Reactions, Alerts Allergy Allergy Status Severity Reaction(s) Onset Inactive Treating Comm ents Source Name Type Date Date Clinician NO KNOWN Drug Active Univers ALLERGIE Class ity of S [facility] Social History Social Habit Start Date Stop Date Quantity Comments Source History [facility] University o f Alcohol Frequency [facility] Branch History [facility] University o f Alcohol Std Drinks [facility] History [facility] o f Alcohol Binge [place] [facility] Branch Gender identity Hoahaoism [facility] orientation [facility] Tobacco use and 2022-10-17 2022-10-17 Smokeless Universit y of exposure 00:00:00 00:00:00 tobacco non-user [facility] dical Branch Alcohol intake 2022-10-17 2022-10-17 Current drinker Unive rsity of 00:00:00 00:00:00 of alcohol [facility] (finding) Branch Exposure to 2022-04-10 2022-04-20 Not sure [facility] SARS-CoV-2 (event) 00:00:00 07:49:00 [facility] Alcohol Comment 2020-12-28 2020-12-28 social Universit y of 00:00:00 00:00:00 [facility] Sex [birth year] Hoahaoism 00:00:00 00:00:00 Hospital Smoking Status Start Date Stop Date Source Tobacco smoking [facility] Never [facility] Medications Ordered Filled Start Stop [...] A [place] 00 DAY Medical Branch GABAPENTIN 2022- Yes TAKE 1 [...] TIMES A Medical Branch clobetasoL 2023-0 Yes [id number] Apply to Univers 0.05 % 4-30 area(s) 2 ity of cream 00:00: (two) times Medical daily. Branch Apply to affected arms, back clobetasoL 2023-0 Yes [id number] Apply to Univers 0.05 % 4-30 area(s) 2 ity of cream 00:00: (two) times Medical daily. Branch Apply to affected arms, back clobetasoL 2023-0 Yes [id number] Apply to Univers 0.05 % 4-30 area(s) 2 ity of cream 00:00: (two) times Medical daily. Branch Apply to affected arms, back clobetasoL 2023-0 Yes [id number] Apply to Univers 0.05 % 4-30 area(s) 2 ity of cream 00:00: (two) times Medical daily. Branch Apply to affected arms, back clobetasoL 2023-0 Yes [id number] Apply to Univers 0.05 % 4-30 area(s) 2 ity of cream 00:00: (two) times Medical daily. Branch Apply to affected arms, back clobetasoL 2023-0 Yes [id number] Apply to Univers 0.05 % 4-30 area(s) 2 ity of cream 00:00: (two) times Medical daily. Branch Apply to affected arms, back clobetasoL 2023-0 Yes [id number] Apply to Univers 0.05 % 4-30 area(s) 2 ity of cream 00:00: (two) times Medical daily. Branch Apply to affected arms, back clobetasoL 2023-0 2023- Yes [id number] Apply to Univers 0.05 % 4-30 05-15 area(s) 2 ity of cream 00:00: 04:59 (two) [place] 00 :00 times Medical daily for Branch 14 days. Apply to affected arms, back clobetasoL 2022- No [id number] Apply to Univers 0.05 % 30 30 area(s) 2 ity of cream 00:00: 00:00 (two) [place] 00 :00 times Medical daily for Branch 14 days. Apply to affected arms, back metFORMIN 0 Yes TAKE 1 Univer s 1,000 mg [...] 4-02 TABLET ity of tablet 00:00: TWICE [place] 00 DAILY WITH Medical MEALS Branch metFORMIN [...] MEALS Branch ACCU-CHEK 2022-0 Yes USE TO [employer] FASTCLIX 3-27 CHECK ity of LANCET DRUM 00:00: GLUCOSE 3 [place] Misc 00 TIMES A Medical DAY Branch ACCU-CHEK 3-0 Yes USE TO [employer] FASTCLIX 3-27 CHECK ity of LANCET [...] A Medical DAY Branch dulaglutide 0 Yes [id number] 1.5mg inject 1 Univers (TRULICITY) 3-03 Pen under ity of 1.5 mg/0.5 00:00: the skin [place] mL PnIj 00 weekly. Medical Branch dulaglutide 0 Yes [id number] 1.5mg inject 1 Univers (TRULICITY) 3-03 Pen under ity of 1.5 mg/0.5 00:00: the skin [place] mL PnIj 00 weekly. Medical Branch dulaglutide Yes [id number] 1.5mg inject 1 Univers (TRULICITY) 3-03 Pen under ity of 1.5 mg/0.5 00:00: the skin [place] mL PnIj 00 weekly. Medical Branch dulaglutide Yes [id number] 1.5mg inject 1 Univers (TRULICITY) 3-03 Pen under ity of 1.5 mg/0.5 00:00: the skin [place] mL PnIj [address] [facility] Branch dulaglutide Yes [id number] 1.5mg inject 1 Univers (TRULICITY) 3-03 Pen under ity of 1.5 mg/0.5 00:00: the skin [place] mL PnIj [address] [facility] Branch dulaglutide Yes [id number] 1.5mg inject 1 Univers (TRULICITY) 3-03 Pen under ity of 1.5 mg/0.5 00:00: the skin [place] mL PnIj 00 weekly. Medical Branch dulaglutide Yes [id number] 1.5mg inject 1 Univers (TRULICITY) 3-03 Pen under ity of 1.5 mg/0.5 00:00: the skin [place] mL PnIj 00 weekly. Medical Branch dulaglutide Yes [id number] 1.5mg inject 1 Univers (TRULICITY) 3-03 Pen under ity of 1.5 mg/0.5 00:00: the [place] mL PnIj 00 weekly. Medical Branch dulaglutide Yes [id number] 1.5mg inject 1 Univers (TRULICITY) 3-03 Pen under ity of 1.5 mg/0.5 00:00: the skin [place] mL PnIj 00 weekly. Medical Branch dulaglutide Yes [id number] 1.5mg inject 1 Univers (TRULICITY) 3-03 Pen under ity of 1.5 mg/0.5 00:00: the skin [place] mL PnIj [address] [facility] Branch dulaglutide Yes [id number] 1.5mg inject 1 Univers (TRULICITY) 3-03 Pen under ity of 1.5 mg/0.5 00:00: the skin [place] mL PnIj 00 weekly. Medical Branch dulaglutide Yes [id number] 1.5mg inject 1 Univers (TRULICITY) 3-03 Pen under ity of 1.5 mg/0.5 00:00: the skin [place] mL PnIj 00 weekly. Medical Branch dulaglutide Yes [id number] 1.5mg inject 1 Univers (TRULICITY) 3-03 Pen under ity of 1.5 mg/0.5 00:00: the skin [place] mL PnIj 00 weekly. Medical Branch dulaglutide Yes [id number] 1.5mg inject 1 Univers (TRULICITY) 3-03 Pen under ity of 1.5 mg/0.5 00:00: the skin [place] mL PnIj 00 weekly. Medical Branch dulaglutide Yes [id number] 1.5mg inject 1 Univers (TRULICITY) 3-03 Pen under ity of 1.5 mg/0.5 00:00: the skin [place] mL PnIj 00 weekly. Medical Branch tirzepatide Yes [id number] 5mg inject 5 Univers (MOUNJARO) 3-01 mg under ity o f 5 mg/0.5 mL 00:00: [place] PnIj 00 weekly. Medical Branch tirzepatide Yes [id number] 7.5mg inject 7.5 Univers (MOUNJARO) 3-01 mg under ity o f 7.5 mg/0.5 00:00: the [place] mL PnIj 00 weekly. Medical Branch tirzepatide Yes [id number] 5mg inject 5 Univers (MOUNJARO) 3-01 mg under ity o f 5 mg/0.5 mL 00:00: the skin [place] PnIj 00 weekly. Medical Branch tirzepatide Yes [id number] 7.5mg inject 7.5 Univers (MOUNJARO) 3-01 mg under ity o f 7.5 mg/0.5 00:00: the [place] mL PnIj 00 weekly. Medical Branch tirzepatide Yes [id number] 5mg inject 5 Univers (MOUNJARO) 3-01 mg under ity o f 5 mg/0.5 mL 00:00: the skin [place] PnIj 00 weekly. Medical Branch tirzepatide Yes [id number] 7.5mg inject 7.5 Univers (MOUNJARO) 3-01 mg under ity o f 7.5 mg/0.5 00:00: the [place] mL PnIj 00 weekly. Medical Branch tirzepatide Yes [id number] 5mg inject 5 Univers (MOUNJARO) 3-01 mg under ity o f 5 mg/0.5 mL 00:00: the skin [place] PnIj 00 weekly. Medical Branch tirzepatide Yes [id number] 7.5mg inject 7.5 Univers (MOUNJARO) 3-01 mg under ity o f 7.5 mg/0.5 00:00: the skin [place] mL PnIj 00 weekly. Medical Branch tirzepatide 2022- No [id number] 5mg inject 5 Univers (MOUNJARO) 3-01 03-03 mg under ity of 5 mg/0.5 mL 00:00: 00:00 the skin [place] PnIj 00 :00 weekly. Medical Branch tirzepatide 2022- No [id number] 7.5mg inject 7.5 Univers (MOUNJARO) 3-01 03-03 mg under ity of 7.5 mg/0.5 00:00: 00:00 the skin [place] mL PnIj 00 :00 weekly. Medical Branch tirzepatide 2022- No [id number] 5mg inject 5 Univers (MOUNJARO) 3-01 03-03 mg under ity of 5 mg/0.5 mL 00:00: 00:00 the skin [place] PnIj 00 :00 weekly. Medical Branch tirzepatide 2022- No [id number] 7.5mg inject 7.5 Univers (MOUNJARO) 3-01 03-03 mg under ity of 7.5 mg/0.5 00:00: 00:00 the skin [place] mL PnIj 00 :00 weekly. Medical Branch dapaglifloz 3-0 Yes 10mg Take 1 Univ ers in 2-26 tablet by ity of (XI) 00:00: [place] 10 mg 00 the Medical tablet morning. Branch dapaglifloz 2023-0 Yes 10mg Take 1 Univ ers in 2-26 tablet by ity of (XI) 00:00: [place] 10 mg 00 the Medical tablet morning. Branch dapaglifloz 2023-0 Yes 10mg Take 1 Univ ers in 2-26 tablet by ity of (XI) 00:00: [place] 10 mg 00 the Medical tablet morning. Branch dapaglifloz 2023-0 Yes 10mg Take 1 Univ ers in 2-26 tablet by ity of () 00:00: [place] 10 mg 00 the Medical tablet morning. Branch dapaglifloz 2023-0 Yes 10mg Take 1 Univ ers in 2-26 tablet by ity of (XI) 00:00: [place] 10 mg 00 the Medical tablet morning. Branch dapaglifloz 2023-0 Yes 10mg Take 1 Univ ers in 2-26 tablet by ity of (XI) 00:00: [place] 10 mg 00 the Medical tablet morning. Branch dapaglifloz 2023-0 Yes 10mg Take 1 Univ ers in 2-26 tablet by ity of (XI) 00:00: [place] 10 mg 00 the Medical tablet morning. Branch dapaglifloz 2023-0 Yes 10mg Take 1 Univ ers in 2-26 tablet by ity of (XI) 00:00: [place] 10 mg 00 the Medical tablet morning. Branch dapaglifloz 2023-0 Yes 10mg Take 1 Univ ers in 2-26 tablet by ity of (XI) 00:00: [place] 10 mg 00 the Medical tablet morning. Branch dapaglifloz 2023-0 Yes 10mg Take 1 Univ ers in 2-26 tablet by ity of (XIGA) 00:00: mouth [...] Medical tablet morning. Branch lisinopriL- 2022-0 Yes [id number] TAKE 1 Univers hydrochloro 1-29 TABLET ity of thiazide 00:00: TWICE A [place] 20-12.5 mg 00 DAY Medical per tablet Branch lisinopriL- 2022-0 Yes [id number] TAKE 1 Univers hydrochloro 1-29 TABLET ity of thiazide 00:00: TWICE A [place] 20-12.5 mg 00 DAY Medical per tablet Branch lisinopriL- 2022-0 Yes [id number] TAKE 1 Univers hydrochloro 1-29 TABLET ity of thiazide 00:00: TWICE A [place] 20-12.5 mg 00 DAY Medical per tablet Branch lisinopriL- 2022-0 Yes [id number] TAKE 1 Univers hydrochloro 1-29 TABLET ity of thiazide 00:00: TWICE A [place] 20-12.5 mg 00 DAY Medical per tablet Branch lisinopriL- 2022-0 Yes [id number] TAKE 1 Univers hydrochloro 1-29 TABLET ity of thiazide 00:00: TWICE A [place] 20-12.5 mg 00 DAY Medical per tablet Branch lisinopriL- 2022-0 Yes [id number] TAKE 1 Univers hydrochloro 1-29 TABLET ity of thiazide 00:00: TWICE A [place] 20-12.5 mg 00 DAY Medical per tablet Branch lisinopriL- 2022-0 Yes [id number] TAKE 1 Univers hydrochloro 1-29 TABLET ity of thiazide 00:00: TWICE A [place] 20-12.5 mg 00 DAY Medical per tablet Branch lisinopriL- 2022-0 Yes [id number] TAKE 1 Univers hydrochloro 1-29 TABLET ity of thiazide 00:00: TWICE A [place] 20-12.5 mg 00 DAY Medical per tablet Branch lisinopriL- 2022-0 Yes [id number] TAKE 1 Univers hydrochloro 1-29 TABLET ity of thiazide 00:00: TWICE A [place] 20-12.5 mg 00 DAY Medical per tablet Branch lisinopriL- 2022-0 Yes [id number] TAKE 1 Univers hydrochloro 1-29 TABLET ity of thiazide 00:00: TWICE A [place] 20-12.5 mg 00 DAY Medical per tablet Branch lisinopriL- 2022-0 Yes [id number] TAKE 1 Univers hydrochloro 1-29 TABLET ity of thiazide 00:00: TWICE A [place] 20-12.5 mg 00 DAY Medical per tablet Branch lisinopriL- 2022-0 Yes [id number] TAKE 1 Univers hydrochloro 1-29 TABLET ity of thiazide 00:00: TWICE A [place] 20-12.5 mg 00 DAY Medical per tablet Branch lisinopriL- 2022-0 Yes [id number] TAKE 1 Univers hydrochloro 1-29 TABLET ity of thiazide 00:00: TWICE A [place] 20-12.5 mg 00 DAY Medical per tablet Branch lisinopriL- 2022-0 Yes [id number] TAKE 1 Univers hydrochloro 1-29 TABLET ity of thiazide 00:00: TWICE A [place] 20-12.5 mg 00 DAY Medical per tablet Branch lisinopriL- 2022-0 Yes [id number] TAKE 1 Univers hydrochloro 1-29 TABLET ity of thiazide 00:00: TWICE A [place] 20-12.5 mg 00 DAY Medical per tablet Branch lisinopriL- 2022-0 Yes [id number] TAKE 1 Univers hydrochloro 1-29 TABLET ity of thiazide 00:00: TWICE A [place] 20-12.5 mg 00 DAY Medical per tablet Branch lisinopriL- 2022-0 Yes [id number] TAKE 1 Univers hydrochloro 1-29 TABLET ity of thiazide 00:00: TWICE A [place] 20-12.5 mg 00 DAY Medical per tablet Branch lisinopriL- 2022-0 Yes [id number] TAKE 1 Univers hydrochloro 1-29 TABLET ity of thiazide 00:00: TWICE A [place] 20-12.5 mg 00 DAY Medical per tablet Branch lisinopriL- 2022-0 Yes [id number] TAKE 1 Univers hydrochloro 1-29 TABLET ity of thiazide 00:00: TWICE A [place] 20-12.5 mg 00 DAY Medical per tablet Branch lisinopriL- 2022-0 Yes [id number] TAKE 1 Univers hydrochloro 1-29 TABLET ity of thiazide 00:00: TWICE A [place] 20-12.5 mg 00 DAY Medical per tablet Branch lisinopriL- 2022-0 Yes [id number] TAKE 1 Univers hydrochloro 1-29 TABLET ity of thiazide 00:00: TWICE A [place] 20-12.5 mg 00 DAY Medical per tablet Branch lisinopriL- 2022-0 Yes [id number] TAKE 1 Univers hydrochloro 1-29 TABLET ity of thiazide 00:00: TWICE A [place] 20-12.5 mg 00 DAY Medical per tablet Branch lisinopriL- 2022-0 Yes [id number] TAKE 1 Univers hydrochloro 1-29 TABLET ity of thiazide 00:00: TWICE A [place] 20-12.5 mg 00 DAY Medical per tablet Branch lisinopriL- 2022-0 Yes [id number] TAKE 1 Univers hydrochloro 1-29 TABLET ity of thiazide 00:00: TWICE A [place] 20-12.5 mg 00 DAY Medical per tablet Branch HUMULIN R 2022-0 Yes Inject Univer s [...] R 2023-0 Yes Inject Univer s U-500, 123 90-100 ity of CONC, 00:00: units [place] KWIKPEN 500 00 under the Med ical unit/mL (3 skin at Branch mL) InPn breakfast, THEN 100-110 units with lunch, THEN 80-100 units at dinner Dx E11.40 Max dose 310 units daily. HUMULIN R 2023-0 Yes Inject Univer s U-500, 07-12 90-100 ity of CONC, 00:00: units [place] KWIKPEN 500 00 under the Med ical unit/mL (3 skin at Branch mL) InPn breakfast, THEN 100-110 units with lunch, THEN 80-100 units at dinner Dx E11.40 Max dose 310 units daily. HUMULIN R 2023-0 Yes Inject Univer s U-500, 07-12 90-100 ity of CONC, 00:00: units [place] KWIKPEN 500 00 under the Med ical unit/mL (3 skin at Branch mL) InPn breakfast, THEN 100-110 units with lunch, THEN 80-100 units at dinner Dx E11.40 Max dose 310 units daily. HUMULIN R 2023-0 Yes Inject Univer s U-500, 07-12 90-100 ity of CONC, 00:00: units [place] KWIKPEN 500 00 under the Med ical unit/mL (3 skin at Branch mL) InPn breakfast, THEN 100-110 units with lunch, THEN 80-100 units at dinner Dx E11.40 Max dose 310 units daily. HUMULIN R 2023-0 Yes Inject Univer s U-500, 07-12 90-100 ity of CONC, 00:00: units [place] KWIKPEN 500 00 under the Med ical unit/mL (3 skin at Branch mL) InPn breakfast, THEN 100-110 units with lunch, THEN 80-100 units at dinner Dx E11.40 Max dose 310 units daily. HUMULIN R 2023-0 Yes Inject Univer s U-500, 123 90-100 ity of CONC, 00:00: units [place] KWIKPEN 500 00 under the Med ical unit/mL (3 skin at Branch mL) InPn breakfast, THEN 100-110 units with lunch, THEN 80-100 units at dinner Dx E11.40 Max dose 310 units daily. HUMULIN R 2023-0 Yes Inject Univer s U-500, -23 90-100 ity of CONC, 00:00: units [place] KWIKPEN 500 00 under the Med ical unit/mL (3 skin at Branch mL) InPn breakfast, THEN 100-110 units with lunch, THEN 80-100 units at dinner Dx E11.40 Max dose 310 units daily. HUMULIN R 2023-0 Yes Inject Univer s U-500, 07-12 90-100 ity of CONC, 00:00: units [place] KWIKPEN 500 00 under the Med ical unit/mL (3 skin at Branch mL) InPn breakfast, THEN 100-110 units with lunch, THEN 80-100 units at dinner Dx E11.40 Max dose 310 units daily. HUMULIN R 2023-0 Yes Inject Univer s U-500, 07-12 90-100 ity of CONC, 00:00: units [place] KWIKPEN 500 00 under the Med ical unit/mL (3 skin at Branch mL) InPn breakfast, THEN 100-110 units with lunch, THEN 80-100 units at dinner Dx E11.40 Max dose 310 units daily. HUMULIN R 202-0 Yes Inject Univer s U-500, 07-12 90-100 ity of CONC, 00:00: units [place] KWIKPEN 500 00 under the Med ical unit/mL (3 skin at Branch mL) InPn breakfast, THEN 100-110 units with lunch, THEN 80-100 units at dinner Dx E11.40 Max dose 310 units daily. insulin 2022-0 Yes [id number] Inject Uni vers regular hum -04 90-100 ity of U-500 conc 00:00: units at [place] 500 unit/mL 00 breakfast, Me dical (3 mL) InPn 100-110 Branc h units with lunch and 80-100 units at dinner Dx E11.40 insulin 2022-0 Yes [id number] Inject Uni vers regular hum 1-04 90-100 ity of U-500 conc 00:00: units [place] 500 unit/mL 00 under the Med ical (3 mL) InPn skin at Branc h breakfast, THEN 100-110 units with lunch, THEN 80-100 units at dinner Dx E11.40 Insulin 2023-0 Yes Use 3 Univers [place], 1-04 times ity of Disposable, 00:00: daily with [place] (BD INSULIN 00 insulin. Medi jada PEN NEEDLE Dx E11.65 Bran ch UF) 31 gauge x 5/16" Ndle Insulin 2022-0 Yes Use 3 Univers [place], 1-04 times ity of Disposable, 00:00: daily with [place] (BD INSULIN 00 insulin. Medi jada PEN NEEDLE Dx E11.65 Bran ch UF) 31 gauge x 5/16" Ndle Insulin 2022-0 Yes Use 3 [facility] [place], 1-04 times ity of Disposable, 00:00: daily with [place] (BD INSULIN 00 insulin. Medi jada PEN NEEDLE Dx E11.65 Bran ch UF) 31 gauge x 5/16" Ndle Insulin 2022-0 Yes Use 3 [facility] [place], 1-04 times ity of Disposable, 00:00: daily with [place] (BD INSULIN 00 insulin. Medi jada PEN NEEDLE Dx E11.65 Bran ch UF) 31 gauge x 5/16" Ndle Insulin 2022-0 Yes Use 3 [facility] [place], 1-04 times ity of Disposable, 00:00: daily with [place] (BD INSULIN 00 insulin. Medi jada PEN NEEDLE Dx E11.65 Bran ch UF) 31 gauge x 5/16" Ndle Insulin 2022-0 Yes Use 3 [facility] [place], 1-04 times ity of Disposable, 00:00: daily with [place] (BD INSULIN 00 insulin. Medi ajda PEN NEEDLE Dx E11.65 Bran ch UF) 31 gauge x 5/16" Ndle Insulin 2022-0 Yes Use 3 [facility] [place], 1-04 times ity of Disposable, 00:00: daily with [place] (BD INSULIN 00 insulin. Medi jada PEN NEEDLE Dx E11.65 Bran ch UF) 31 gauge x 5/16" Ndle Insulin 2022-0 Yes Use 3 [facility] [place], 1-04 times ity of Disposable, 00:00: daily with [place] (BD INSULIN 00 insulin. Medi jada PEN NEEDLE Dx E11.65 Bran ch UF) 31 gauge x 5/16" Ndle Insulin 2022-0 Yes Use 3 [facility] [place], 1-04 times ity of Disposable, 00:00: daily with [place] (BD INSULIN 00 insulin. Medi jada PEN NEEDLE Dx E11.65 Bran ch UF) 31 gauge x 5/16" Ndle Insulin 2022-0 Yes Use 3 [facility] [place], 1-04 times ity of Disposable, 00:00: daily with [place] (BD INSULIN 00 insulin. Medi jada PEN NEEDLE Dx E11.65 Bran ch UF) 31 gauge x 5/16" Ndle Insulin 2022-0 Yes Use 3 [facility] [place], 1-04 times ity of Disposable, 00:00: daily with [place] (BD INSULIN 00 insulin. Medi jada PEN NEEDLE Dx E11.65 Bran ch UF) 31 gauge x 5/16" Ndle Insulin 2022-0 Yes Use 3 [facility] [place], 1-04 times ity of Disposable, 00:00: daily with [place] (BD INSULIN 00 insulin. Medi jada PEN NEEDLE Dx E11.65 Bran ch UF) 31 gauge x 5/16" Ndle Insulin 2022-0 Yes Use 3 [facility] [place], 1-04 times ity of Disposable, 00:00: daily with [place] (BD INSULIN 00 insulin. Medi jada PEN NEEDLE Dx E11.65 Bran ch UF) 31 gauge x 5/16" Ndle Insulin 2022-0 Yes Use 3 [facility] [place], 1-04 times ity of Disposable, 00:00: daily with [place] (BD INSULIN 00 insulin. Medi jada PEN NEEDLE Dx E11.65 Bran ch UF) 31 gauge x 5/16" Ndle Insulin 2022-0 Yes Use 3 [facility] [place], 1-04 times ity of Disposable, 00:00: daily with [place] (BD INSULIN 00 insulin. Medi jada PEN NEEDLE Dx E11.65 Bran ch UF) 31 gauge x 5/16" Ndle Insulin 2022-0 Yes Use 3 [facility] [place], 1-04 times ity of Disposable, 00:00: daily with [place] (BD INSULIN 00 insulin. Medi jada PEN NEEDLE Dx E11.65 Bran ch UF) 31 gauge x 5/16" Ndle Insulin 2022-0 Yes Use 3 [facility] [place], 1-04 times ity of Disposable, 00:00: daily with [place] (BD INSULIN 00 insulin. Medi jada PEN NEEDLE Dx E11.65 Bran ch UF) 31 gauge x 5/16" Ndle Insulin 2022-0 Yes Use 3 [facility] [place], 1-04 times ity of Disposable, 00:00: daily with [place] (BD INSULIN 00 insulin. Medi jada PEN NEEDLE Dx E11.65 Bran ch UF) 31 gauge x 5/16" Ndle Insulin 202-0 Yes Use 3 [facility] [place], 1-04 times ity of Disposable, 00:00: daily with [place] (BD INSULIN 00 insulin. Medi jada PEN NEEDLE Dx E11.65 Bran UF) 31 gauge x 5/16" Ndle Insulin 2022-0 Yes Use 3 [facility] [place], 1-04 times ity of Disposable, 00:00: daily with [place] (BD INSULIN 00 insulin. Medi jada PEN NEEDLE Dx E11.65 Bran UF) 31 gauge x 5/16" Ndle Insulin 2022-0 Yes Use 3 [facility] [place], 1-04 times ity of Disposable, 00:00: daily with [place] (BD INSULIN 00 insulin. Medi jada PEN NEEDLE Dx E11.65 Bran UF) 31 gauge x 5/16" Ndle Insulin 2022-0 Yes Use 3 [facility] [place], 1-04 times ity of Disposable, 00:00: daily with [place] (BD INSULIN 00 insulin. Medi jada PEN NEEDLE Dx E11.65 Bran UF) 31 gauge x 5/16" Ndle Insulin 2022-0 Yes Use 3 [facility] [place], 1-04 times ity of Disposable, 00:00: daily with [place] (BD INSULIN 00 insulin. Medi jada PEN NEEDLE Dx E11.65 Bran UF) 31 gauge x 5/16" Ndle Insulin 2022-0 Yes Use 3 [facility] [place], 1-04 times ity of Disposable, 00:00: daily with [place] (BD INSULIN 00 insulin. Medi jada PEN NEEDLE Dx E11.65 Bran UF) 31 gauge x 5/16" Ndle Insulin 2022-0 Yes Use 3 [facility] [place], 1-04 times ity of Disposable, 00:00: daily with [place] (BD INSULIN 00 insulin. Medi jada PEN NEEDLE Dx E11.65 Bran UF) 31 gauge x 5/16" Ndle Insulin 2022-0 Yes Use 3 [facility] [place], 1-04 times ity of Disposable, 00:00: daily with [place] (BD INSULIN 00 insulin. Medi jada PEN NEEDLE Dx E11.65 Bran UF) 31 gauge x 5/16" Ndle Insulin 2022-0 Yes Use 3 [facility] [place], 1-04 times ity of Disposable, 00:00: daily with [place] (BD INSULIN 00 insulin. Medi jada PEN NEEDLE Dx E11.65 Bran UF) 31 gauge x 5/16" Ndle insulin 2022-0 2023- No [id number] Inject Un beth regular hum -09 18- 90-100 ity o f U-500 conc 00:00: 00:00 units [place] 500 unit/mL 00 :00 under the Med ical (3 mL) InPn skin at Branc h breakfast, THEN 100-110 units with lunch, THEN 80-100 units at dinner Dx E11.40 insulin 2022- No [id number] Inject Un beth regular hum -04 01-04 90-100 ity o f U-500 conc 00:00: 00:00 units [place] 500 unit/mL 00 :00 under the Med ical (3 mL) InPn skin at Branc h breakfast, THEN 100-110 units with lunch, THEN 80-100 units at dinner Dx E11.40 insulin 2021-06 Yes [id number] Inject Uni vers regular 2-24 90-100 ity of human 00:00: units at [place] (HUMULIN R) 00 breakfast, Me dical 500 unit/mL 100-110 Branc h injection units with lunch and 80-100 units at dinner Dx E11.40 insulin 2021-06 Yes [id number] Inject Uni vers regular 2-24 90-100 ity of human 00:00: units at [place] (HUMULIN R) 00 breakfast, Me dical 500 unit/mL 100-110 Branc h injection units with lunch and 80-100 units at dinner Dx E11.40 insulin 2021-06 Yes [id number] Inject Uni vers regular 2-24 90-100 ity of human 00:00: units at [place] (HUMULIN R) 00 breakfast, Me dical 500 unit/mL 100-110 Branc h injection units with lunch and 80-100 units at dinner Dx E11.40 insulin 2021-06 Yes [id number] Inject [facility] vers regular 2-24 90-100 ity of human 00:00: units at [place] (HUMULIN R) 00 breakfast, Me dical 500 unit/mL 100-110 Branc h injection units with lunch and 80-100 units at dinner Dx E11.40 insulin 2021-06 Yes [id number] Inject [facility] vers regular 2-24 90-100 ity of human 00:00: units at [place] (HUMULIN R) 00 breakfast, Me dical 500 unit/mL 100-110 Branc h injection units with lunch and 80-100 units at dinner Dx E11.40 insulin 2021-06- No [id number] Inject [facility] regular 2-24 -04 90-100 ity of human 00:00: 00:00 units at [place] (HUMULIN R) 00 :00 breakfast, Me dical 500 unit/mL 100-110 Branc h injection units with lunch and 80-100 units at dinner Dx E11.40 insulin 2021-063- No [id number] Inject [facility] regular 2-24 01-04 90-100 ity of human 00:00: 00:00 units at [place] (HUMULIN R) 00 :00 breakfast, Me dical 500 unit/mL 100-110 Branc h injection units with lunch and 80-100 units at dinner Dx E11.40 insulin 2021-06 Yes [id number] Inject [facility] vers regular 2-20 90-100 ity of human 00:00: units at [place] (HUMULIN R) 00 breakfast, Me dical 500 unit/mL 100-110 Branc h injection units with lunch and 80-100 units at dinner Dx E11.40 insulin 2021-06 Yes [id number] Inject [facility] vers regular 2-20 90-100 ity of human 00:00: units at [place] (HUMULIN R) 00 breakfast, Me dical 500 unit/mL 100-110 Branc h injection units with lunch and 80-100 units at dinner Dx E11.40 insulin 2021-06 Yes [id number] Inject [facility] vers regular 2-20 90-100 ity of human 00:00: units at [place] (HUMULIN R) 00 breakfast, Me dical 500 unit/mL 100-110 Branc h injection units with lunch and 80-100 units at dinner Dx E11.40 insulin 2021-06 Yes [id number] Inject [facility] vers regular 2-15 90-100 ity of human 00:00: units at [place] (HUMULIN R) 00 breakfast, Me dical 500 unit/mL 100-110 Branc h injection units with lunch and 80-100 units at dinner Dx E11.40 Insulin 2021-06 Yes Use 3 [facility] [place], 2-15 times ity of Disposable, 00:00: daily with [place] (BD INSULIN 00 insulin. Medi jada PEN NEEDLE Dx E11.65 Bran ch UF) 31 gauge x 5/16" Ndle insulin 2021-06 Yes [id number] 1{appli 1 [facility] U-500 2-15 cator} Applicator ity of syringe-nee 00:00: 3 (three) [place] (BD 00 times Medical INSULIN daily with Branch SYRINGE meals. Use U-500) 1/2 to mL 31 gauge administer x 15/64" U-500 Syrg insulin three times a day. Dx. E11.40 Insulin 2021-06 Yes Use 3 [facility] [place], 2-15 times ity of Disposable, 00:00: daily with [place] (BD INSULIN 00 insulin. Medi jada PEN NEEDLE Dx E11.65 Bran UF) 31 gauge x 5/16" Ndle insulin 2021-06 Yes [id number] 1{appli 1 [facility] U-500 2-15 cator} Applicator ity of syringe-nee 00:00: 3 (three) [place] (BD 00 times Medical INSULIN daily with [facility] SYRINGE meals. Use U-500) 1/2 to mL 31 gauge administer x 15/64" U-500 Syrg insulin three times a day. Dx. E11.40 Insulin 2021-06 Yes Use 3 [facility] [place], 2-15 times ity of Disposable, 00:00: daily with [place] (BD INSULIN 00 insulin. Medi jada PEN NEEDLE Dx E11.65 Bran UF) 31 gauge x 5/16" Ndle insulin 2021-06 Yes [id number] 1{appli 1 [facility] U-500 2-15 cator} Applicator ity of syringe-nee 00:00: 3 (three) [place] (BD 00 times Medical INSULIN daily with [facility] SYRINGE meals. Use U-500) 1/2 to mL 31 gauge administer x 15/64" U-500 Syrg insulin three times a day. Dx. E11.40 Insulin 2021-06 Yes Use 3 [facility] [place], 2-15 times ity of Disposable, 00:00: daily with [place] (BD INSULIN 00 insulin. Medi jada PEN NEEDLE Dx E11.65 Bran ch UF) 31 gauge x 5/16" Ndle insulin 2021-06 Yes [id number] 1{appli 1 [facility] U-500 2-15 cator} Applicator ity of syringe-nee 00:00: 3 (three) [place] (BD 00 times Medical INSULIN daily with [facility] SYRINGE meals. Use U-500) 1/2 to mL 31 gauge administer x 15/64" U-500 Syrg insulin three times a day. Dx. E11.40 Insulin 2021-06 Yes Use 3 [facility] [place], 2-15 times ity of Disposable, 00:00: daily with [place] (BD INSULIN 00 insulin. Medi jada PEN NEEDLE Dx E11.65 Bran UF) 31 gauge x 5/16" Ndle insulin 2021-06 Yes [id number] 1{appli 1 [facility] U-500 2-15 cator} Applicator ity of syringe-nee 00:00: 3 (three) [place] (BD 00 times Medical INSULIN daily with [facility] SYRINGE meals. Use U-500) 1/2 to mL 31 gauge administer x 15/64" U-500 Syrg insulin three times a day. Dx. E11.40 Insulin 2021-06 Yes Use 3 [facility] [place], 2-15 times ity of Disposable, 00:00: daily with [place] (BD INSULIN 00 insulin. Medi jada PEN NEEDLE Dx E11.65 Bran UF) 31 gauge x 5/16" Ndle insulin 2021-06 Yes [id number] 1{appli 1 [facility] U-500 2-15 cator} Applicator ity of syringe-nee 00:00: 3 (three) [place] (BD 00 times Medical INSULIN daily with Branch SYRINGE meals. Use U-500) 1/2 to mL 31 gauge administer x 15/64" U-500 Syrg insulin three times a day. Dx. E1140 Insulin 2021-06 Yes Use 3 [facility] [place], 2-15 times ity of Disposable, 00:00: daily with [place] (BD INSULIN 00 insulin. Medi jada PEN NEEDLE Dx E11.65 Bran UF) 31 gauge x 5/16" Ndle insulin 2021-06 Yes [id number] 1{appli 1 [facility] U-500 2-15 cator} Applicator ity of syringe-nee 00:00: 3 (three) [place] (BD 00 times Medical INSULIN daily with [facility] SYRINGE meals. Use U-500) 1/2 to mL 31 gauge administer x 15/64" U-500 Syrg insulin three times a day. Dx. E11.40 Insulin 2021-06 Yes Use 3 [facility] [place], 2-15 times ity of Disposable, 00:00: daily with [place] (BD INSULIN 00 insulin. Medi jada PEN NEEDLE Dx E11.65 Bran UF) 31 gauge x 5/16" Ndle insulin 2021-06 Yes [id number] 1{appli 1 [facility] U-500 2-15 cator} Applicator ity of syringe-nee 00:00: 3 (three) [place] (BD 00 times Medical INSULIN daily with Branch SYRINGE meals. Use U-500) 1/2 to mL 31 gauge administer x 15/64" U-500 Syrg insulin three times a day. Dx. E11.40 Insulin 2021-06 Yes Use 3 [facility] [place], 2-15 times ity of Disposable, 00:00: daily with [place] (BD INSULIN 00 insulin. Medi jada PEN NEEDLE Dx E11.65 Bran ch UF) 31 gauge x 5/16" Ndle insulin 2021-06 Yes [id number] 1{appli 1 [facility] U-500 2-15 cator} Applicator ity of syringe-nee 00:00: 3 (three) [place] (BD 00 times Medical INSULIN daily with [facility] SYRINGE meals. Use U-500) 1/2 to mL 31 gauge administer x 15/64" U-500 Syrg insulin three times a day. Dx. E11.40 Insulin 2021-06 Yes Use 3 [facility] [place], 2-15 times ity of Disposable, 00:00: daily with [place] (BD INSULIN 00 insulin. Medi jada PEN NEEDLE Dx E11.65 Bran ch UF) 31 gauge x 5/16" Ndle insulin 2021-06 Yes [id number] 1{appli 1 [facility] U-500 2-15 cator} Applicator ity of syringe-nee 00:00: 3 (three) [place] (BD 00 times Medical INSULIN daily with [facility] SYRINGE meals. Use U-500) 1/2 to mL 31 gauge administer x 15/64" U-500 Syrg insulin three times a day. Dx. E11.40 Insulin 2021-06 Yes Use 3 [facility] [place], 2-15 times ity of Disposable, 00:00: daily with [place] (BD INSULIN 00 insulin. Medi jdaa PEN NEEDLE Dx E11.65 Bran ch UF) 31 gauge x 5/16" Ndle insulin 2021-06 Yes [id number] 1{appli 1 [facility] U-500 2-15 cator} Applicator ity of syringe-nee 00:00: 3 (three) [place] (BD 00 times Medical INSULIN daily with [facility] SYRINGE meals. Use U-500) 1/2 to mL 31 gauge administer x 15/64" U-500 Syrg insulin three times a day. Dx. E11.40 insulin 2021-06 Yes [id number] 1{appli 1 [facility] U-500 2-15 cator} Applicator ity of syringe-nee 00:00: 3 (three) [place] (BD 00 times Medical INSULIN daily with [facility] SYRINGE meals. Use U-500) 1/2 to mL 31 gauge administer x 15/64" U-500 Syrg insulin three times a day. Dx. E11.40 insulin 2021-06 Yes [id number] 1{appli 1 [facility] U-500 2-15 cator} Applicator ity of syringe-nee 00:00: 3 (three) [place] (BD 00 times Medical INSULIN daily with [facility] SYRINGE meals. Use U-500) 1/2 to mL 31 gauge administer x 15/64" U-500 Syrg insulin three times a day. Dx. E11.40 insulin 2021-06 Yes [id number] 1{appli 1 [facility] U-500 2-15 cator} Applicator ity of syringe-nee 00:00: 3 (three) [place] (BD 00 times Medical INSULIN daily with [facility] SYRINGE meals. Use U-500) 1/2 to mL 31 gauge administer x 15/64" U-500 Syrg insulin three times a day. Dx. E11.40 insulin 2021-06 Yes [id number] 1{appli 1 [facility] U-500 2-15 cator} Applicator ity of syringe-nee 00:00: 3 (three) [place] (BD 00 times Medical INSULIN daily with [facility] SYRINGE meals. Use U-500) 1/2 to mL 31 gauge administer x 15/64" U-500 Syrg insulin three times a day. Dx. E11.40 insulin 2021-06 Yes [id number] 1{appli 1 [facility] U-500 2-15 cator} Applicator ity of syringe-nee 00:00: 3 (three) [place] (BD 00 times Medical INSULIN daily with [facility] SYRINGE meals. Use U-500) 1/2 to mL 31 gauge administer x 15/64" U-500 Syrg insulin three times a day. Dx. E11.40 insulin 2021-06 Yes [id number] 1{appli 1 [facility] U-500 2-15 cator} Applicator ity of syringe-nee 00:00: 3 (three) [place] (BD 00 times Medical INSULIN daily with [facility] SYRINGE meals. Use U-500) 1/2 to mL 31 gauge administer x 15/64" U-500 Syrg insulin three times a day. Dx. E11.40 insulin 2021-06 Yes [id number] 1{appli 1 [facility] U-500 2-15 cator} Applicator ity of syringe-nee 00:00: 3 (three) [place] (BD 00 times Medical INSULIN daily with Branch SYRINGE meals. Use U-500) 1/2 to mL 31 gauge administer x 15/64" U-500 Syrg insulin three times a day. Dx. E11.40 insulin 2021-06 Yes [id number] 1{appli 1 [facility] U-500 2-15 cator} Applicator ity of syringe-nee 00:00: 3 (three) [place] (BD 00 times Medical INSULIN daily with Branch SYRINGE meals. Use U-500) 1/2 to mL 31 gauge administer x 15/64" U-500 Syrg insulin three times a day. Dx. E11.40 insulin 2021-06 Yes [id number] 1{appli 1 [facility] U-500 2-15 cator} Applicator ity of syringe-nee 00:00: 3 (three) [place] (BD 00 times Medical INSULIN daily with Branch SYRINGE meals. Use U-500) 1/2 to mL 31 gauge administer x 15/64" U-500 Syrg insulin three times a day. Dx. E11.40 insulin 2021-06 Yes [id number] 1{appli 1 [facility] U-500 2-15 cator} Applicator ity of syringe-nee 00:00: 3 (three) [place] (BD 00 times Medical INSULIN daily with Branch SYRINGE meals. Use U-500) 1/2 to mL 31 gauge administer x 15/64" U-500 Syrg insulin three times a day. Dx. E11.40 insulin 2021-06 Yes [id number] 1{appli 1 [facility] U-500 2-15 cator} Applicator ity of syringe-nee 00:00: 3 (three) [place] (BD 00 times Medical INSULIN daily with Branch SYRINGE meals. Use U-500) 1/2 to mL 31 gauge administer x 15/64" U-500 Syrg insulin three times a day. Dx. E11.40 insulin 2021-06 Yes [id number] 1{appli 1 [facility] U-500 2-15 cator} Applicator ity of syringe-nee 00:00: 3 (three) [place] (BD 00 times Medical INSULIN daily with Branch SYRINGE meals. Use U-500) 1/2 to mL 31 gauge administer x 15/64" U-500 Syrg insulin three times a day. Dx. E11.40 insulin 2021-06 Yes [id number] 1{appli 1 [facility] U-500 2-15 cator} Applicator ity of syringe-nee 00:00: 3 (three) [place] (BD 00 times Medical INSULIN daily with Branch SYRINGE meals. Use U-500) 1/2 to mL 31 gauge administer x 15/64" U-500 Syrg insulin three times a day. Dx. E11.40 insulin 2021-06 Yes [id number] 1{appli 1 [facility] U-500 2-15 cator} Applicator ity of syringe-nee 00:00: 3 (three) [place] (BD 00 times Medical INSULIN daily with Branch SYRINGE meals. Use U-500) 1/2 to mL 31 gauge administer x 15/64" U-500 Syrg insulin three times a day. Dx. E11.40 insulin 2021-06 Yes [id number] 1{appli 1 [facility] U-500 2-15 cator} Applicator ity of syringe-nee 00:00: 3 (three) [place] (BD 00 times Medical INSULIN daily with Branch SYRINGE meals. Use U-500) 1/2 to mL 31 gauge administer x 15/64" U-500 Syrg insulin three times a day. Dx. E11.40 insulin 2021-06 Yes [id number] 1{appli 1 [facility] U-500 2-15 cator} Applicator ity of syringe-nee 00:00: 3 (three) [place] (BD 00 times Medical INSULIN daily with Branch SYRINGE meals. Use U-500) 1/2 to mL 31 gauge administer x 15/64" U-500 Syrg insulin three times a day. Dx. E11.40 insulin 2021-06 Yes [id number] 1{appli 1 [facility] U-500 2-15 cator} Applicator ity of syringe-nee 00:00: 3 (three) [place] (BD 00 times Medical INSULIN daily with Branch SYRINGE meals. Use U-500) 1/2 to mL 31 gauge administer x 15/64" U-500 Syrg insulin three times a day. Dx. E11.40 insulin 2021-06 Yes [id number] 1{appli 1 [facility] U-500 2-15 cator} Applicator ity of syringe-nee 00:00: 3 (three) [place] (BD 00 times Medical INSULIN daily with [facility] SYRINGE meals. Use U-500) 1/2 to mL 31 gauge administer x 15/64" U-500 Syrg insulin three times a day. Dx. E11.40 insulin 2021-06 Yes [id number] 1{appli 1 [facility] U-500 2-15 cator} Applicator ity of syringe-nee 00:00: 3 (three) [place] (BD 00 times Medical INSULIN daily with Branch SYRINGE meals. Use U-500) 1/2 to mL 31 gauge administer x 15/64" U-500 Syrg insulin three times a day. Dx. E11.40 insulin 2021-06 Yes [id number] 1{appli 1 [facility] U-500 2-15 cator} Applicator ity of syringe-nee 00:00: 3 (three) [place] (BD 00 times Medical INSULIN daily with [facility] SYRINGE meals. Use U-500) 1/2 to mL 31 gauge administer x 15/64" U-500 Syrg insulin three times a day. Dx. E11.40 insulin 2021-06 Yes [id number] 1{appli 1 [facility] U-500 2-15 cator} Applicator ity of syringe-nee 00:00: 3 (three) [place] (BD 00 times Medical INSULIN daily with Branch SYRINGE meals. Use U-500) 1/2 to mL 31 gauge administer x 15/64" U-500 Syrg insulin three times a day. Dx. E11.40 insulin 2021-06 Yes [id number] 1{appli 1 [facility] U-500 2-15 cator} Applicator ity of syringe-nee 00:00: 3 (three) [place] (BD 00 times Medical INSULIN daily with [facility] SYRINGE meals. Use U-500) 1/2 to mL 31 gauge administer x 15/64" U-500 Syrg insulin three times a day. Dx. E11.40 insulin 2021-06 Yes [id number] 1{appli 1 [facility] U-500 2-15 cator} Applicator ity of syringe-nee 00:00: 3 (three) [place] (BD 00 times Medical INSULIN daily with [facility] SYRINGE meals. Use U-500) 1/2 to mL 31 gauge administer x 15/64" U-500 Syrg insulin three times a day. Dx. E11.40 insulin 2021-06 Yes [id number] 1{appli 1 [facility] U-500 2-15 cator} Applicator ity of syringe-nee 00:00: 3 (three) [place] (BD 00 times Medical INSULIN daily with Branch SYRINGE meals. Use U-500) 1/2 to mL 31 gauge administer x 15/64" U-500 Syrg insulin three times a day. Dx. E11.40 insulin 2021-06 Yes [id number] 1{appli 1 [facility] U-500 2-15 cator} Applicator ity of syringe-nee 00:00: 3 (three) [place] (BD 00 times Medical INSULIN daily with Branch SYRINGE meals. Use U-500) 1/2 to mL 31 gauge administer x 15/64" U-500 Syrg insulin three times a day. Dx. E11.40 insulin 2021-06 Yes [id number] 1{appli 1 [facility] U-500 2-15 cator} Applicator ity of syringe-nee 00:00: 3 (three) [place] (BD 00 times Medical INSULIN daily with Branch SYRINGE meals. Use U-500) 1/2 to mL 31 gauge administer x 15/64" U-500 Syrg insulin three times a day. Dx. E11.40 insulin 2021-06 Yes [id number] 1{appli 1 [facility] U-500 2-15 cator} Applicator ity of syringe-nee 00:00: 3 (three) [place] (BD 00 times Medical INSULIN daily with Branch SYRINGE meals. Use U-500) 1/2 to mL 31 gauge administer x 15/64" U-500 Syrg insulin three times a day. Dx. E11.40 Insulin 2021-06- No Use 3 [facility] [place], 2-15 01-04 times ity of Disposable, 00:00: 00:00 daily with [place] (BD INSULIN 00 :00 insulin. Medi jada PEN NEEDLE Dx E11.65 Bran ch UF) 31 gauge x 5/16" Ndle insulin 2021-06- No [id number] Inject [facility] regular 2-15 12-20 90-100 ity of human 00:00: 00:00 units at [place] (HUMULIN R) 00 :00 breakfast, Me dical 500 unit/mL 100-110 Branc h injection units with lunch and 80-100 units at dinner Dx E11.40 GABAPENTIN 2021-06 Yes TAKE 1 [facility] 100 mg 2-11 CAPSULE 3 ity of capsule 00:00: TIMES A [facility] GABAPENTIN 2021-06 Yes TAKE 1 Unive rs 100 mg 2-11 CAPSULE 3 ity of capsule 00:00: TIMES A [facility] GABAPENTIN 2021-06 Yes TAKE 1 Unive rs 100 mg 2-11 CAPSULE 3 ity of capsule 00:00: TIMES A [facility] GABAPENTIN 2021-06 Yes TAKE 1 Unive rs 100 mg 2-11 CAPSULE 3 ity of capsule 00:00: TIMES A [facility] GABAPENTIN 2021-06 Yes TAKE 1 Unive rs 100 mg 2-11 CAPSULE 3 ity of capsule 00:00: TIMES A [facility] GABAPENTIN 2021-06 Yes TAKE 1 Unive rs 100 mg 2-11 CAPSULE 3 ity of capsule 00:00: TIMES A [facility] GABAPENTIN 2021-06 Yes TAKE 1 Unive rs 100 mg 2-11 CAPSULE 3 ity of capsule 00:00: TIMES A [facility] GABAPENTIN 2021-06 Yes TAKE 1 Unive [...] TIMES A [facility] simvastatin 2022- Yes [id number] 20mg Take 1 [facility] 20 mg 1- tablet by ity of tablet 00:00: mouth at bedtime. Medical Branch insulin 2- Yes [id number] 1{appli 1 Un beht U-500 1- cator} Applicator ity of syringe-nee 00:00: 3 (three) [place] (BD 00 times Medical INSULIN daily with Branch SYRINGE meals. Use U-500) 1/2 to mL 31 gauge administer x 15/64" U-500 Syrg insulin three times a day. Dx. E11.40 lisinopriL- 2021-06 Yes [id number] TAKE 1 [facility] hydrochloro 1-01 TABLET ity of thiazide 00:00: TWICE A [place] 20-12.5 mg 00 DAY Medical per tablet Branch insulin 2021-06 Yes [id number] Inject [facility] vers regular 1-01 90-100 ity of human 00:00: units at [place] (HUMULIN R) 00 breakfast, Me dical 500 unit/mL 100-110 Branc h injection units with lunch and 80-100 units at dinner Dx E11.40 simvastatin 2021-06 Yes [id number] 20mg Take 1 [facility] 20 mg 1-01 tablet by ity of tablet 00:00: mouth at [place] 00 bedtime. Medical Branch insulin 2021-06 Yes [id number] 1{appli 1 [facility] U-500 1- cator} Applicator ity of syringe-nee 00:00: 3 (three) [place] (BD 00 times Medical INSULIN daily with Branch SYRINGE meals. Use U-500) 1/2 to mL 31 gauge administer x 15/64" U-500 Syrg insulin three times a day. Dx. E11.40 lisinopriL- 2021-06 Yes [id number] TAKE 1 [facility] hydrochloro 1-01 TABLET ity of thiazide 00:00: TWICE A [place] 20-12.5 mg 00 DAY Medical per tablet Branch insulin 2021-06 Yes [id number] Inject [facility] vers regular 1-01 90-100 ity of human 00:00: units at [place] (HUMULIN R) 00 breakfast, Me dical 500 unit/mL 100-110 Branc h injection units with lunch and 80-100 units at dinner Dx E11.40 simvastatin 2021-06 Yes [id number] 20mg Take 1 [facility] 20 mg 1-01 tablet by ity of tablet 00:00: mouth at [place] 00 bedtime. Medical Branch insulin 2021-06 Yes [id number] 1{appli 1 [facility] U-500 1-01 cator} Applicator ity of syringe-nee 00:00: 3 (three) [place] (BD 00 times Medical INSULIN daily with Branch SYRINGE meals. Use U-500) 1/2 to mL 31 gauge administer x 15/64" U-500 Syrg insulin three times a day. Dx. E11.40 lisinopriL- 2021-06 Yes [id number] TAKE 1 [facility] hydrochloro 1-01 TABLET ity of thiazide 00:00: TWICE A [place] 20-12.5 mg 00 DAY Medical per tablet Branch insulin 2021-06 Yes [id number] Inject [facility] vers regular 1-01 90-100 ity of human 00:00: units at [place] (HUMULIN R) 00 breakfast, Me dical 500 unit/mL 100-110 Branc h injection units with lunch and 80-100 units at dinner Dx E11.40 simvastatin 2021-06 Yes [id number] 20mg Take 1 [facility] 20 mg 1-01 tablet by ity of tablet 00:00: mouth at [place] 00 bedtime. Medical Branch insulin 2021-06 Yes [id number] 1{appli 1 [facility] U-500 1- cator} Applicator ity of syringe-nee 00:00: 3 (three) [place] (BD 00 times Medical INSULIN daily with Branch SYRINGE meals. Use U-500) 1/2 to mL 31 gauge administer x 15/64" U-500 Syrg insulin three times a day. Dx. E11.40 lisinopriL- 2021-06 Yes [id number] TAKE 1 [facility] hydrochloro 1-01 TABLET ity of thiazide 00:00: TWICE A [place] 20-12.5 mg 00 DAY Medical per tablet Branch insulin 2021-06 Yes [id number] Inject Uni vers regular 1-01 90-100 ity of human 00:00: units at [place] (HUMULIN R) 00 breakfast, Me dical 500 unit/mL 100-110 Branc h injection units with lunch and 80-100 units at dinner Dx E11.40 simvastatin 2021-06 Yes [id number] 20mg Take 1 [facility] 20 mg 1-01 tablet by ity of tablet 00:00: mouth at [place] 00 bedtime. Medical Branch insulin 2021-06 Yes [id number] 1{appli 1 [facility] U-500 1-01 cator} Applicator ity of syringe-nee 00:00: 3 (three) [place] (BD 00 times Medical INSULIN daily with Branch SYRINGE meals. Use U-500) 1/2 to mL 31 gauge administer x 15/64" U-500 Syrg insulin three times a day. Dx. E11.40 lisinopriL- 2021-06 Yes [id number] TAKE 1 [facility] hydrochloro 1-01 TABLET ity of thiazide 00:00: TWICE A [place] 20-12.5 mg 00 DAY Medical per tablet Branch insulin 2021-06 Yes [id number] Inject [facility] vers regular 1-01 90-100 ity of human 00:00: units at [place] (HUMULIN R) 00 breakfast, Me dical 500 unit/mL 100-110 Branc h injection units with lunch and 80-100 units at dinner Dx E11.40 simvastatin 2021-06 Yes [id number] 20mg Take 1 [facility] 20 mg 1-01 tablet by ity of tablet 00:00: mouth at [place] 00 bedtime. Medical Branch insulin 2021-06 Yes [id number] 1{appli 1 [facility] U-500 1- cator} Applicator ity of syringe-nee 00:00: 3 (three) [place] (BD 00 times Medical INSULIN daily with Branch SYRINGE meals. Use U-500) 1/2 to mL 31 gauge administer x 15/64" U-500 Syrg insulin three times a day. Dx. E11.40 lisinopriL- 2021-06 Yes [id number] TAKE 1 [facility] hydrochloro 1-01 TABLET ity of thiazide 00:00: TWICE A [place] 20-12.5 mg 00 DAY Medical per tablet Branch insulin 2021-06 Yes [id number] Inject Uni vers regular 1-01 90-100 ity of human 00:00: units at [place] (HUMULIN R) 00 breakfast, Me dical 500 unit/mL 100-110 Branc h injection units with lunch and 80-100 units at dinner Dx E11.40 simvastatin 2021-06 Yes [id number] 20mg Take 1 [facility] 20 mg 1-01 tablet by ity of tablet 00:00: mouth at [place] 00 bedtime. Medical Branch insulin 2021-06 Yes [id number] 1{appli 1 [facility] U-500 1-01 cator} Applicator ity of syringe-nee 00:00: 3 (three) [place] (BD 00 times Medical INSULIN daily with Branch SYRINGE meals. Use U-500) 1/2 to mL 31 gauge administer x 15/64" U-500 Syrg insulin three times a day. Dx. E11.40 lisinopriL- 2021-06 Yes [id number] TAKE 1 [facility] hydrochloro 1-01 TABLET ity of thiazide 00:00: TWICE A [place] 20-12.5 mg 00 DAY Medical per tablet Branch insulin 2021-06 Yes [id number] Inject [facility] vers regular 1-01 90-100 ity of human 00:00: units at [place] (HUMULIN R) 00 breakfast, Me dical 500 unit/mL 100-110 Branc h injection units with lunch and 80-100 units at dinner Dx E11.40 simvastatin 2021-06 Yes [id number] 20mg Take 1 [facility] 20 mg 1-01 tablet by ity of tablet 00:00: mouth at [place] 00 bedtime. Medical [facility] insulin 2021-06 Yes [id number] 1{appli 1 [facility] U-500 1- cator} Applicator ity of syringe-nee 00:00: 3 (three) [place] (BD 00 times Medical INSULIN daily with Branch SYRINGE meals. Use U-500) 1/2 to mL 31 gauge administer x 15/64" U-500 Syrg insulin three times a day. Dx. E11.40 lisinopriL- 2021-06 Yes [id number] TAKE 1 [facility] hydrochloro 1-01 TABLET ity of thiazide 00:00: TWICE A [place] 20-12.5 mg 00 DAY Medical per tablet Branch insulin 2021-06 Yes [id number] Inject Uni vers regular 1- 90-100 ity of human 00:00: units at [place] (HUMULIN R) 00 breakfast, Me dical 500 unit/mL 100-110 Branc h injection units with lunch and 80-100 units at dinner Dx E11.40 simvastatin 2021-06 Yes [id number] 20mg Take 1 [facility] 20 mg 1-01 tablet by ity of tablet 00:00: mouth at [place] 00 bedtime. Medical Branch lisinopriL- 2021-06 Yes [id number] TAKE 1 [facility] hydrochloro 1-01 TABLET ity of thiazide 00:00: TWICE A [place] 20-12.5 mg 00 DAY Medical per tablet Branch simvastatin 2021-06 Yes [id number] 20mg Take 1 [facility] 20 mg 1-01 tablet by ity of tablet 00:00: mouth at [place] 00 bedtime. Medical Branch lisinopriL- 2021-06 Yes [id number] TAKE 1 [facility] hydrochloro 1-01 TABLET ity of thiazide 00:00: TWICE A [place] 20-12.5 mg 00 DAY Medical per tablet Branch simvastatin 2021-06 Yes [id number] 20mg Take 1 [facility] 20 mg 1-01 tablet by ity of tablet 00:00: mouth at [place] 00 bedtime. Medical [facility] lisinopriL- 2021-06 Yes [id number] TAKE 1 [facility] hydrochloro 1-01 TABLET ity of thiazide 00:00: TWICE A [place] 20-12.5 mg 00 DAY Medical per tablet Branch simvastatin 2021-06 Yes [id number] 20mg Take 1 [facility] 20 mg 1-01 tablet by ity of tablet 00:00: mouth at [place] 00 bedtime. Medical [facility] lisinopriL- 2021-06 Yes [id number] TAKE 1 [facility] hydrochloro 1-01 TABLET ity of thiazide 00:00: TWICE A [place] 20-12.5 mg 00 DAY Medical per tablet Branch simvastatin 2021-06 Yes [id number] 20mg Take 1 [facility] 20 mg 1-01 tablet by ity of tablet 00:00: mouth at [place] 00 bedtime. Medical Branch lisinopriL- 2021-06 Yes [id number] TAKE 1 [facility] hydrochloro 1-01 TABLET ity of thiazide 00:00: TWICE A [place] 20-12.5 mg 00 DAY Medical per tablet Branch simvastatin 2021-06 Yes [id number] 20mg Take 1 [facility] 20 mg 1-01 tablet by ity of tablet 00:00: mouth at [place] 00 bedtime. Medical Branch lisinopriL- 2021-06 Yes [id number] TAKE 1 [facility] hydrochloro 1-01 TABLET ity of thiazide 00:00: TWICE A [place] 20-12.5 mg 00 DAY Medical per tablet Branch simvastatin 2021-06 Yes [id number] 20mg Take 1 [facility] 20 mg 1-01 tablet by ity of tablet 00:00: mouth at [place] 00 bedtime. Medical Branch lisinopriL- 2021-06 Yes [id number] TAKE 1 [facility] hydrochloro 1-01 TABLET ity of thiazide 00:00: TWICE A [place] 20-12.5 mg 00 DAY Medical per tablet Branch simvastatin 2021-06 Yes [id number] 20mg Take 1 [facility] 20 mg 1-01 tablet by ity of tablet 00:00: mouth at [place] 00 bedtime. Medical Branch lisinopriL- 2021-06 Yes [id number] TAKE 1 [facility] hydrochloro 1-01 TABLET ity of thiazide 00:00: TWICE A [place] 20-12.5 mg 00 DAY Medical per tablet Branch simvastatin 2021-06 Yes [id number] 20mg Take 1 [facility] 20 mg 1-01 tablet by ity of tablet 00:00: mouth at [place] 00 bedtime. Medical Branch lisinopriL- 2021-06 Yes [id number] TAKE 1 [facility] hydrochloro 1-01 TABLET ity of thiazide 00:00: TWICE A [place] 20-12.5 mg 00 DAY Medical per tablet Branch simvastatin 2021-06 Yes [id number] 20mg Take 1 [facility] 20 mg 1-01 tablet by ity of tablet 00:00: mouth at [place] 00 bedtime. Medical Branch lisinopriL- 2021-06 Yes [id number] TAKE 1 [facility] hydrochloro 1-01 TABLET ity of thiazide 00:00: TWICE A [place] 20-12.5 mg 00 DAY Medical per tablet Branch simvastatin 2021-06 Yes [id number] 20mg Take 1 [facility] 20 mg 1-01 tablet by ity of tablet 00:00: mouth at [place] 00 bedtime. Medical Branch lisinopriL- 2021-06 Yes [id number] TAKE 1 [facility] hydrochloro 1-01 TABLET ity of thiazide 00:00: TWICE A [place] 20-12.5 mg 00 DAY Medical per tablet Branch simvastatin 2021-06 Yes [id number] 20mg Take 1 [facility] 20 mg 1-01 tablet by ity of tablet 00:00: mouth at [place] 00 bedtime. Medical Branch lisinopriL- 2021-06 Yes [id number] TAKE 1 [facility] hydrochloro 1-01 TABLET ity of thiazide 00:00: TWICE A [place] 20-12.5 mg 00 DAY Medical per tablet Branch simvastatin 2021-06 Yes [id number] 20mg Take 1 [facility] 20 mg 1-01 tablet by ity of tablet 00:00: mouth at [place] 00 bedtime. Medical Branch lisinopriL- 2021-06 Yes [id number] TAKE 1 [facility] hydrochloro 1-01 TABLET ity of thiazide 00:00: TWICE A [place] 20-12.5 mg 00 DAY Medical per tablet Branch simvastatin 2021-06 Yes [id number] 20mg Take 1 [facility] 20 mg 1-01 tablet by ity of tablet 00:00: mouth at [place] [address] [facility] Branch lisinopriL- 2021-06 Yes [id number] TAKE 1 [facility] hydrochloro 1-01 TABLET ity of thiazide 00:00: TWICE A [place] 20-12.5 mg 00 DAY Medical per tablet Branch simvastatin 2021-06 Yes [id number] 20mg Take 1 [facility] 20 mg 1-01 tablet by ity of tablet 00:00: mouth at [place] [address] bedtime. Medical Branch simvastatin 2021-06 Yes [id number] 20mg Take 1 [facility] 20 mg 1-01 tablet by ity of tablet 00:00: mouth at [place] [address] [facility] Branch simvastatin 2021-06 Yes [id number] 20mg Take 1 [facility] 20 mg 1-01 tablet by ity of tablet 00:00: mouth at [place] [address] [facility] Branch simvastatin 2021-06 Yes [id number] 20mg Take 1 [facility] 20 mg 1-01 tablet by ity of tablet 00:00: mouth at [place] [address] [facility] Branch simvastatin 2021-06 Yes [id number] 20mg Take 1 [facility] 20 mg 1-01 tablet by ity of tablet 00:00: mouth at [place] [address] bedtime. [facility] simvastatin 2021-06 Yes [id number] 20mg Take 1 [facility] 20 mg 1-01 tablet by ity of tablet 00:00: mouth at [place] [address] [facility] Branch simvastatin 2021-06 Yes [id number] 20mg Take 1 [facility] 20 mg 1-01 tablet by ity of tablet 00:00: mouth at [place] [address] [facility] Branch simvastatin 2021-06 Yes [id number] 20mg Take 1 [facility] 20 mg 1-01 tablet by ity of tablet 00:00: mouth at [place] [address] [facility] Branch simvastatin 2021-06 Yes [id number] 20mg Take 1 [facility] 20 mg 1-01 tablet by ity of tablet 00:00: mouth at [place] [address] bedtime. [facility] simvastatin 2021-06 Yes [id number] 20mg Take 1 [facility] 20 mg 1-01 tablet by ity of tablet 00:00: mouth at [place] [address] bedtime. [facility] simvastatin 2021-06 Yes [id number] 20mg Take 1 [facility] 20 mg 1-01 tablet by ity of tablet 00:00: mouth at [place] [address] [facility] Branch simvastatin 2021-06 Yes [id number] 20mg Take 1 [facility] 20 mg 1-01 tablet by ity of tablet 00:00: mouth at [place] [address] [facility] Branch simvastatin 2021-06 Yes [id number] 20mg Take 1 [facility] 20 mg 1-01 tablet by ity of tablet 00:00: mouth at [place] [address] [facility] Branch simvastatin 2021-06 Yes [id number] 20mg Take 1 [facility] 20 mg 1-01 tablet by ity of tablet 00:00: mouth at [place] [address] [facility] Branch simvastatin 2021-06 Yes [id number] 20mg Take 1 [facility] 20 mg 1-01 tablet by ity of tablet 00:00: mouth at [place] [address] [facility] Branch simvastatin 2021-06 Yes [id number] 20mg Take 1 [facility] 20 mg 1-01 tablet by ity of tablet 00:00: mouth at [place] [address] [facility] Branch simvastatin 2021-06 Yes [id number] 20mg Take 1 [facility] 20 mg 1-01 tablet by ity of tablet 00:00: mouth at [place] [address] [facility] Branch simvastatin 2021-06 Yes [id number] 20mg Take 1 [facility] 20 mg 1-01 tablet by ity of tablet 00:00: mouth at [place] [address] [facility] Branch simvastatin 2021-06 Yes [id number] 20mg Take 1 [facility] 20 mg 1-01 tablet by ity of tablet 00:00: mouth at [place] [address] [facility] Branch simvastatin 2021-06 Yes [id number] 20mg Take 1 [facility] 20 mg 1-01 tablet by ity of tablet 00:00: mouth at [place] [address] [facility] Branch simvastatin 2021-06 Yes [id number] 20mg Take 1 [facility] 20 mg 1-01 tablet by ity of tablet 00:00: mouth at [place] [address] [facility] Branch simvastatin 2021-06 Yes [id number] 20mg Take 1 [facility] 20 mg 1-01 tablet by ity of tablet 00:00: mouth at [place] [address] [facility] Branch simvastatin 2021-06 Yes [id number] 20mg Take 1 [facility] 20 mg 1-01 tablet by ity of tablet 00:00: mouth at [place] [address] [facility] Branch simvastatin 2021-06 Yes [id number] 20mg Take 1 [facility] 20 mg 06-20 tablet by ity of tablet 00:00: mouth at [place] 00 bedtime. Medical Branch lisinopriL- 2021-06- No [id number] TAKE 1 [facility] hydrochloro 06-20 TABLET ity o f thiazide 00:00: 00:00 TWICE A [place] 20-12.5 mg 00 :00 DAY Medical per tablet Branch insulin 2021-06- No [id number] 1{appli 1 U nivers U-500 06-20 cator} Applicator ity o f syringe-nee 00:00: 00:00 3 (three) [place] dle (BD 00 :00 times Medical INSULIN daily with Branch SYRINGE meals. Use U-500) 1/2 to mL 31 gauge administer x 15/64" U-500 Syrg insulin three times a day. Dx. E11.40 insulin 2021-06- No [id number] Inject Un beth regular 06-20 90-100 ity of human 00:00: 00:00 units at [place] (HUMULIN R) 00 :00 breakfast, Me dical 500 unit/mL 100-110 Branc h injection units with lunch and 80-100 units at dinner Dx E11.40 METFORMIN 2021-06 Yes TAKE 1 Univer s 1,000 mg 0-29 TABLET ity of tablet 00:00: TWICE [place] 00 DAILY WITH Medical MEALS Branch METFORMIN 2021-06 Yes TAKE 1 Univer s 1,000 mg 0-29 TABLET ity of tablet 00:00: TWICE [place] 00 DAILY WITH Medical MEALS Branch METFORMIN 2021-06 Yes TAKE 1 Univer s 1,000 mg 0-29 TABLET ity of tablet 00:00: TWICE [place] 00 DAILY WITH Medical MEALS Branch METFORMIN 2021-06 Yes TAKE 1 Univer s 1,000 mg 0-29 TABLET ity of tablet 00:00: TWICE [place] 00 DAILY WITH Medical MEALS Branch METFORMIN 2021-06 Yes TAKE 1 Univer s 1,000 mg 0-29 TABLET ity of tablet 00:00: TWICE [place] 00 DAILY WITH Medical MEALS Branch METFORMIN 2021-06 Yes TAKE 1 Univer s 1,000 mg 0-29 TABLET ity of tablet 00:00: TWICE [place] 00 DAILY WITH Medical MEALS Branch METFORMIN [...] MORNING AND EVENING MEALS FARXIGA 10 Yes [id number] TAKE 1 U nivers mg tablet 9-25 TABLET BY ity o f 00:00: MOUTH [place] 00 EVERY DAY Medical Branch dapaglifloz Yes [id number] 10mg Take 1 [facility] in 9-25 tablet by ity of (FARXIGA) 00:00: [place] 10 mg 00 the Medical tablet morning. Branch dapaglifloz Yes [id number] 10mg Take 1 [facility] in 9-25 tablet by ity of () 00:00: [place] 10 mg 00 the Medical tablet morning. Branch dapaglifloz 2022-0 Yes [id number] 10mg Take 1 [facility] in 9-25 tablet by ity of () 00:00: [place] 10 mg 00 the Medical tablet morning. Branch dapaglifloz 2022-0 Yes [id number] 10mg Take 1 [facility] in 9-25 tablet by ity of () 00:00: [place] 10 mg 00 the Medical tablet morning. Branch dapaglifloz 2022-0 Yes [id number] 10mg Take 1 [facility] in 9-25 tablet by ity of () 00:00: [place] 10 mg 00 the Medical tablet morning. Branch dapaglifloz 2022-0 Yes [id number] 10mg Take 1 [facility] in 9-25 tablet by ity of () 00:00: [place] 10 mg 00 the Medical tablet morning. Branch dapaglifloz 2022-0 Yes [id number] 10mg Take 1 [facility] in 9-25 tablet by ity of () 00:00: [place] 10 mg 00 the Medical tablet morning. Branch dapaglifloz 2022-0 Yes [id number] 10mg Take 1 [facility] in 9-25 tablet by ity of () 00:00: [place] 10 mg 00 the Medical tablet morning. Branch dapaglifloz 2022-0 Yes [id number] 10mg Take 1 [facility] in 9-25 tablet by ity of () 00:00: [place] 10 mg 00 the Medical tablet morning. Branch dapaglifloz 2022-0 Yes [id number] 10mg Take 1 [facility] in 9-25 tablet by ity of () 00:00: [place] 10 mg 00 the Medical tablet morning. Branch dapaglifloz 2022-0 Yes [id number] 10mg Take 1 [facility] in 9-25 tablet by ity of () 00:00: [place] 10 mg 00 the Medical tablet morning. Branch dapaglifloz 2022-0 Yes [id number] 10mg Take 1 [facility] in 9-25 tablet by ity of () 00:00: [place] 10 mg 00 the Medical tablet morning. Branch dapaglifloz 2022-0 Yes [id number] 10mg Take 1 [facility] in 9-25 tablet by ity of () 00:00: [place] 10 mg 00 the Medical tablet morning. Branch dapaglifloz 2022-0 Yes [id number] 10mg Take 1 [facility] in 9-25 tablet by ity of () 00:00: [place] 10 mg 00 the Medical tablet morning. Branch dapaglifloz 2022-0 Yes [id number] 10mg Take 1 [facility] in 9-25 tablet by ity of () 00:00: [place] 10 mg 00 the Medical tablet morning. Branch dapaglifloz 2022-0 Yes [id number] 10mg Take 1 [facility] in 9-25 tablet by ity of () 00:00: [place] 10 mg 00 the Medical tablet morning. Branch dapaglifloz 2022-0 Yes [id number] 10mg Take 1 [facility] in 9-25 tablet by ity of () 00:00: [place] 10 mg 00 the Medical tablet morning. Branch dapaglifloz 2022-0 Yes [id number] 10mg Take 1 [facility] in 9-25 tablet by ity of () 00:00: [place] 10 mg 00 the Medical tablet morning. Branch dapaglifloz 2022-0 Yes [id number] 10mg Take 1 [facility] in 9-25 tablet by ity of () 00:00: [place] 10 mg 00 the Medical tablet morning. Branch dapaglifloz 2022-0 Yes [id number] 10mg Take 1 [facility] in 9-25 tablet by ity of () 00:00: [place] 10 mg 00 the Medical tablet morning. Branch dapaglifloz 2022-0 Yes [id number] 10mg Take 1 [facility] in 9-25 tablet by ity of () 00:00: mouth [place] 10 mg 00 the Medical tablet morning. Branch dapaglifloz 2022-0 Yes [id number] 10mg Take 1 [facility] in 9-25 tablet by ity of () 00:00: [place] 10 mg 00 the Medical tablet morning. Branch dapaglifloz 2022-0 Yes [id number] 10mg Take 1 [facility] in 9-25 tablet by ity of () 00:00: mouth [place] 10 mg 00 the Medical tablet morning. Branch dapaglifloz 2022-0 Yes [id number] 10mg Take 1 [facility] in 9-25 tablet by ity of () 00:00: [place] 10 mg 00 the Medical tablet morning. Branch dapaglifloz 2022-0 Yes [id number] 10mg Take 1 [facility] in 9-25 tablet by ity of () 00:00: [place] 10 mg 00 the Medical tablet morning. Branch dapaglifloz 2022-0 Yes [id number] 10mg Take 1 [facility] in 9-25 tablet by ity of () 00:00: [place] 10 mg 00 the Medical tablet morning. Branch dapaglifloz 2022-0 Yes [id number] 10mg Take 1 [facility] in 9-25 tablet by ity of () 00:00: [place] 10 mg 00 the Medical tablet morning. Branch dapaglifloz 2-0 2023- No [id number] 10mg Take 1 [facility] in 9-25 - tablet by ity of () 00:00: 00:00 mouth in [place] 10 mg 00 :00 the Medical tablet morning. Branch XIGA 10 2021-0 2022- No [id number] TAKE 1 [facility] mg tablet 9-25 -25 TABLET BY ity of 00:00: 00:00 MOUTH [place] 00 :00 EVERY DAY Medical Branch fenofibrate 2022-0 Yes Univer s 54 mg 9-17 ity of tablet 00:00: [place] 00 Medical Branch fenofibrate 2022-0 Yes Univer s 54 mg 9-17 ity of tablet 00:00: [place] 00 Medical Branch fenofibrate 2022-0 Yes Univer s 54 mg 9-17 ity of tablet 00:00: [place] 00 Medical Branch fenofibrate 2022-0 Yes Univer s 54 mg 9-17 ity of tablet 00:00: [place] 00 Medical Branch fenofibrate 2022-0 Yes Univer s 54 mg 9-17 ity of tablet 00:00: [place] 00 Medical Branch fenofibrate 2022-0 Yes Univer s 54 mg 9-17 ity of tablet 00:00: [place] 00 Medical Branch fenofibrate 2022-0 Yes Univer s 54 mg 9-17 ity of tablet 00:00: [place] 00 Medical Branch fenofibrate 2022-0 Yes Univer s 54 mg 9-17 ity of tablet 00:00: [place] 00 Medical Branch fenofibrate 2022-0 Yes Univer s 54 mg 9-17 ity of tablet 00:00: [place] 00 Medical Branch fenofibrate 2022-0 Yes Univer s 54 mg 9-17 ity of tablet 00:00: [place] [address] Medical Branch fenofibrate 2022-0 Yes Univer s 54 mg 9-17 ity of tablet 00:00: [place] 00 Medical Branch fenofibrate 2022-0 Yes Univer s 54 mg 9-17 ity of tablet 00:00: [place] [address] Medical Branch fenofibrate 2022-0 Yes Univer s 54 mg 9-17 ity of tablet 00:00: [place] 00 Medical Branch fenofibrate 2022-0 Yes Univer s 54 mg 9-17 ity of tablet 00:00: [place] [address] Medical Branch fenofibrate 2022-0 Yes Univer s 54 mg 9-17 ity of tablet 00:00: [place] 00 Medical Branch fenofibrate 2022-0 Yes Univer s 54 mg 9-17 ity of tablet 00:00: [place] [address] Medical Branch fenofibrate 2022-0 Yes Univer s 54 mg 9-17 ity of tablet 00:00: [place] 00 Medical Branch fenofibrate 2022-0 Yes Univer s 54 mg 9-17 ity of tablet 00:00: [place] 00 Medical Branch fenofibrate 2022-0 Yes Univer s 54 mg 9-17 ity of tablet 00:00: [place] 00 Medical Branch fenofibrate 2022-0 Yes Univer s 54 mg 9-17 ity of tablet 00:00: [place] 00 Medical Branch fenofibrate 2022-0 Yes Univer s 54 mg 9-17 ity of tablet 00:00: [place] [address] Medical Branch fenofibrate 2022-0 Yes Univer s 54 mg 9-17 ity of tablet 00:00: [place] 00 Medical Branch fenofibrate 2022-0 Yes Univer s 54 mg 9-17 ity of tablet 00:00: [place] 00 Medical Branch fenofibrate 2022-0 Yes Univer s 54 mg 9-17 ity of tablet 00:00: [place] 00 Medical Branch fenofibrate 2022-0 Yes Univer s 54 mg 9-17 ity of tablet 00:00: [place] 00 Medical Branch fenofibrate 2022-0 Yes Univer s 54 mg 9-17 ity of tablet 00:00: [place] 00 Medical Branch fenofibrate 2022-0 Yes Univer s 54 mg 9-17 ity of tablet 00:00: [place] 00 Medical Branch fenofibrate 2022-0 Yes Univer s 54 mg 9-17 ity of tablet 00:00: [place] 00 Medical Branch fenofibrate 2022-0 Yes Univer s 54 mg 9-17 ity of tablet 00:00: [place] 00 Medical Branch fenofibrate 2022-0 Yes Univer s 54 mg 9-17 ity of tablet 00:00: [place] [address] Medical Branch fenofibrate 2022-0 Yes Univer s 54 mg 9-17 ity of tablet 00:00: [place] 00 Medical Branch fenofibrate 2022-0 Yes Univer s 54 mg 9-17 ity of tablet 00:00: [place] [address] Medical Branch fenofibrate 2022-0 Yes Univer s 54 mg 9-17 ity of tablet 00:00: [place] 00 Medical Branch fenofibrate 2022-0 Yes Univer s 54 mg 9-17 ity of tablet 00:00: [place] [address] Medical Branch fenofibrate 2022-0 Yes Univer s 54 mg 9-17 ity of tablet 00:00: [place] 00 Medical Branch fenofibrate 2022-0 Yes Univer s 54 mg 9-17 ity of tablet 00:00: [place] 00 Medical Branch fenofibrate 2022-0 Yes Univer s 54 mg 9-17 ity of tablet 00:00: [place] 00 Medical Branch fenofibrate 2022-0 Yes Univer s 54 mg 9-17 ity of tablet 00:00: [place] 00 Medical Branch fenofibrate 2022-0 Yes Univer s 54 mg 9-17 ity of tablet 00:00: [place] [address] Medical Branch fenofibrate 2022-0 Yes Univer s 54 mg 9-17 ity of tablet 00:00: [place] 00 Medical Branch fenofibrate 2022-0 Yes Univer [...] Blood-Gluco Yes Change Univ ers se Sensor 7- sensor ity of (DEXCOM G6 00:00: every 10 [place] SENSOR) 00 days,Dx: Medical Marcie E11.65 Branch Blood-Gluco 2022- No Change Uni vers se 7- 06-04 transmitte ity of Transmitter 00:00: 00:00 r every 90 [place] (DEXCOM G6 00 :00 days, Dx: [facility] 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 ) Marcie Blood-Gluco 2022- No Change Uni vers se Sensor 7- sensor ity of (DEXCOM G6 00:00: 00:[place] 10 [place] SENSOR) 00 :00 days,Dx: Medical Marcie E11.65 Branch insulin Yes [id number] Inject Univ ers regular 6-28 90-100 ity of human 00:00: units at [place] (HUMULIN R) 00 breakfast, Me dical 500 unit/mL 50-80 Branch injection units with lunch and 80-100 units at dinner Dx E11.40 insulin Yes [id number] 1{appli 1 Uni vers U-500 6-28 cator} Applicator ity of syringe-nee 00:00: 3 (three) [place] dle (BD 00 times Medical INSULIN daily with Branch SYRINGE meals. Use U-500) 1/2 to mL 31 gauge administer x 15/64" U-500 Syrg insulin three times a day. Dx. E11.40 insulin Yes [id number] Inject Univ ers regular 6-28 90-100 ity of human 00:00: units at [place] (HUMULIN R) 00 breakfast, Me dical 500 unit/mL 50-80 Branch injection units with lunch and 80-100 units at dinner Dx E11.40 insulin 0 Yes [id number] 1{appli 1 Uni vers U-500 6-28 cator} Applicator ity of syringe-nee 00:00: 3 (three) [place] d[place] (BD 00 times Medical INSULIN daily with Branch SYRINGE meals. Use U-500) 1/2 to mL 31 gauge administer x 15/64" U-500 Syrg insulin three times a day. Dx. E11.40 insulin 0 Yes [id number] Inject Univ ers regular 6-28 90-100 ity of human 00:00: units at [place] (HUMULIN R) 00 breakfast, Me dical 500 unit/mL 50-80 Branch injection units with lunch and 80-100 units at dinner Dx E11.40 insulin 0 Yes [id number] 1{appli 1 Uni vers U-500 6-28 cator} Applicator ity of syringe-nee 00:00: 3 (three) [place] d[place] (BD 00 times Medical INSULIN daily with Branch SYRINGE meals. Use U-500) 1/2 to mL 31 gauge administer x 15/64" U-500 Syrg insulin three times a day. Dx. E11.40 insulin 0 Yes [id number] Inject Univ ers regular 6-28 90-100 ity of human 00:00: units at [place] (HUMULIN R) 00 breakfast, Me dical 500 unit/mL 50-80 Branch injection units with lunch and 80-100 units at dinner Dx E11.40 insulin 0 Yes [id number] 1{appli 1 Uni vers U-500 6-28 cator} Applicator ity of syringe-nee 00:00: 3 (three) [place] d[place] (BD 00 times Medical INSULIN daily with Branch SYRINGE meals. Use U-500) 1/2 to mL 31 gauge administer x 15/64" U-500 Syrg insulin three times a day. Dx. E11.40 insulin 0 Yes [id number] Inject Univ ers regular 6-28 90-100 ity of human 00:00: units at [place] (HUMULIN R) 00 breakfast, Me dical 500 unit/mL 50-80 Branch injection units with lunch and 80-100 units at dinner Dx E11.40 insulin 0 Yes [id number] 1{appli 1 Uni vers U-500 6-28 cator} Applicator ity of syringe-nee 00:00: 3 (three) [place] (BD 00 times Medical INSULIN daily with Branch SYRINGE meals. Use U-500) 1/2 to mL 31 gauge administer x 15/64" U-500 Syrg insulin three times a day. Dx. E11.40 insulin 0 Yes [id number] Inject Univ ers regular 6-28 90-100 ity of human 00:00: units at [place] (HUMULIN R) 00 breakfast, Me dical 500 unit/mL 50-80 Branch injection units with lunch and 80-100 units at dinner Dx E11.40 insulin 0 Yes [id number] 1{appli 1 Uni vers U-500 6-28 cator} Applicator ity of syringe-nee 00:00: 3 (three) [place] (BD 00 times Medical INSULIN daily with Branch SYRINGE meals. Use U-500) 1/2 to mL 31 gauge administer x 15/64" U-500 Syrg insulin three times a day. Dx. E11.40 insulin 0 Yes [id number] Inject Univ ers regular 6-28 90-100 ity of human 00:00: units at [place] (HUMULIN R) 00 breakfast, Me dical 500 unit/mL 50-80 Branch injection units with lunch and 80-100 units at dinner Dx E11.40 insulin 0 Yes [id number] 1{appli 1 Uni vers U-500 6-28 cator} Applicator ity of syringe-nee 00:00: 3 (three) [place] (BD 00 times Medical INSULIN daily with Branch SYRINGE meals. Use U-500) 1/2 to mL 31 gauge administer x 15/64" U-500 Syrg insulin three times a day. Dx. E11.40 insulin 0 Yes [id number] Inject Univ ers regular 6-28 90-100 ity of human 00:00: units at [place] (HUMULIN R) 00 breakfast, Me dical 500 unit/mL 50-80 Branch injection units with lunch and 80-100 units at dinner Dx E11.40 insulin 2021-0 Yes [id number] 1{appli 1 Uni vers U-500 6-28 cator} Applicator ity of syringe-nee 00:00: 3 (three) [place] (BD 00 times Medical INSULIN daily with Branch SYRINGE meals. Use U-500) 1/2 to mL 31 gauge administer x 15/64" U-500 Syrg insulin three times a day. Dx. E11.40 insulin 0 Yes [id number] Inject Univ ers regular 6-28 90-100 ity of human 00:00: units at [place] (HUMULIN R) 00 breakfast, Me dical 500 unit/mL 50-80 Branch injection units with lunch and 80-100 units at dinner Dx E11.40 insulin Yes [id number] 1{appli 1 Uni vers U-500 12-15 cator} Applicator ity of syringe-nee 00:00: 3 (three) [place] (BD 00 times Medical INSULIN daily with Branch SYRINGE meals. Use U-500) 1/2 to mL 31 gauge administer x 15/64" U-500 Syrg insulin three times a day. Dx. E11.40 insulin 0 Yes [id number] Inject Univ ers regular 12-15 90-100 ity of human 00:00: units at [place] (HUMULIN R) 00 breakfast, Me dical 500 unit/mL 50-80 Branch injection units with lunch and 80-100 units at dinner Dx E11.40 insulin Yes [id number] 1{appli 1 Uni vers U-500 12-15 cator} Applicator ity of syringe-nee 00:00: 3 (three) [place] (BD 00 times Medical INSULIN daily with Branch SYRINGE meals. Use U-500) 1/2 to mL 31 gauge administer x 15/64" U-500 Syrg insulin three times a day. Dx. E11.40 insulin 2021- No [id number] Inject Uni vers regular -04-20 90-100 ity of human 00:00: 00:00 units at [place] (HUMULIN R) 00 :00 breakfast, Me dical 500 unit/mL 50-80 Branch injection units with lunch and 80-100 units at dinner Dx E11.40 insulin 2021- No [id number] 1{appli 1 Un beth U-500 12-15 cator} Applicator ity o f syringe-nee 00:00: 00:00 3 (three) [place] dle (BD 00 :00 times Medical INSULIN daily with Branch SYRINGE meals. Use U-500) 1/2 to mL 31 gauge administer x 15/64" U-500 Syrg insulin three times a day. Dx. E11.40 insulin 2021- No [id number] Inject Uni vers regular 12-15 90-100 ity of human 00:00: 00:00 units at [place] (HUMULIN R) 00 :00 breakfast, Me dical 500 unit/mL 50-80 Branch injection units with lunch and 80-100 units at dinner Dx E11.40 insulin 2021-0 2021- No [id number] 1{appli 1 Un beth U-500 12-15 cator} Applicator ity o f syringe-nee 00:00: 00:00 3 (three) [place] dle (BD 00 :00 times Medical INSULIN daily with Branch SYRINGE meals. Use U-500) 1/2 to mL 31 gauge administer x 15/64" U-500 Syrg insulin three times a day. Dx. E11.40 SIMVASTATIN 2021-0 Yes [id number] TAKE 1 [facility] 20 mg 6-26 TABLET AT ity of tablet 00:00: BEDTIME [place] [facility] SIMVASTATIN 2021-0 Yes [id number] TAKE 1 [facility] 20 mg 6-26 TABLET AT ity of tablet 00:00: BEDTIME [place] [facility] SIMVASTATIN 2021-0 Yes [id number] TAKE 1 [facility] 20 mg 6-26 TABLET AT ity of tablet 00:00: BEDTIME [place] [facility] SIMVASTATIN 2021-0 Yes [id number] TAKE 1 [facility] 20 mg 6-26 TABLET AT ity of tablet 00:00: BEDTIME [place] [facility] SIMVASTATIN 2021-0 Yes [id number] TAKE 1 [facility] 20 mg 6-26 TABLET AT ity of tablet 00:00: BEDTIME [place] [facility] SIMVASTATIN 2021-0 Yes [id number] TAKE 1 [facility] 20 mg 6-26 TABLET AT ity of tablet 00:00: BEDTIME [place] [facility] SIMVASTATIN 2021-0 Yes [id number] TAKE 1 [facility] 20 mg 6-26 TABLET AT ity of tablet 00:00: BEDTIME [place] [facility] SIMVASTATIN 2022-0 Yes [id number] TAKE 1 [facility] 20 mg 6-26 TABLET AT ity of tablet 00:00: BEDTIME [place] [facility] SIMVASTATIN 2022-0 Yes [id number] TAKE 1 [facility] 20 mg 6-26 TABLET AT ity of tablet 00:00: BEDTIME [place] [facility] SIMVASTATIN 2022-0 Yes [id number] TAKE 1 [facility] 20 mg 6-26 TABLET AT ity of tablet 00:00: BEDTIME [place] [facility] SIMVASTATIN 2021-0 2021- No [id number] TAKE 1 [facility] 20 mg 6-26 04-20 TABLET AT ity of tablet 00:00: 00:00 BEDTIME [place] 00 : [facility] SIMVASTATIN 2021-0 2021- No [id number] TAKE 1 [facility] 20 mg 6-26 04-20 TABLET AT ity of tablet 00:00: 00:00 BEDTIME [place] 00 :00 Medical Branch metFORMIN 2021-0 Yes [id number] 1000mg Take 1 [facility] 1,000 mg 5-03 tablet by ity of tablet 00:00: mouth 2 [place] (two) Medical times Branch daily with meals. lisinopriL- 2021-0 Yes [id number] TAKE 1 [facility] hydrochloro 5-03 TABLET ity of thiazide 00:00: TWICE A [place] 20-12.5 mg 00 DAY Medical per tablet Branch metFORMIN 2021-0 Yes [id number] 1000mg Take 1 [facility] 1,000 mg 5-03 tablet by ity of tablet 00:00: mouth 2 [place] (two) Medical times Branch daily with meals. lisinopriL- 2021-0 Yes [id number] TAKE 1 [facility] hydrochloro 5-03 TABLET ity of thiazide 00:00: TWICE A [place] 20-12.5 mg 00 DAY Medical per tablet Branch metFORMIN 2021-0 Yes [id number] 1000mg Take 1 [facility] 1,000 mg 5-03 tablet by ity of tablet 00:00: mouth 2 [place] (two) Medical times Branch daily with meals. lisinopriL- 2021-0 Yes [id number] TAKE 1 [facility] hydrochloro 5-03 TABLET ity of thiazide 00:00: TWICE A [place] 20-12.5 mg 00 DAY Medical per tablet Branch metFORMIN 2021-0 Yes [id number] 1000mg Take 1 [facility] 1,000 mg 5-03 tablet by ity of tablet 00:00: mouth 2 [place] (two) Medical times Branch daily with meals. lisinopriL- 2021-0 Yes [id number] TAKE 1 [facility] hydrochloro 5-03 TABLET ity of thiazide 00:00: TWICE A [place] 20-12.5 mg 00 DAY Medical per tablet Branch metFORMIN 2021-0 Yes [id number] 1000mg Take 1 [facility] 1,000 mg 5-03 tablet by ity of tablet 00:00: mouth 2 [place] (two) Medical times Branch daily with meals. lisinopriL- 2021-0 Yes [id number] TAKE 1 [facility] hydrochloro 5-03 TABLET ity of thiazide 00:00: TWICE A [place] 20-12.5 mg 00 DAY Medical per tablet Branch metFORMIN 2021-0 Yes [id number] 1000mg Take 1 [facility] 1,000 mg 5-03 tablet by ity of tablet 00:00: mouth 2 [place] 00 (two) Medical times Branch daily with meals. lisinopriL- 2022-0 Yes [id number] TAKE 1 [facility] hydrochloro 5-03 TABLET ity of thiazide 00:00: TWICE A [place] 20-12.5 mg 00 DAY Medical per tablet Branch metFORMIN 2022-0 Yes [id number] 1000mg Take 1 [facility] 1,000 mg 5-03 tablet by ity of tablet 00:00: mouth 2 [place] 00 (two) Medical times Branch daily with meals. lisinopriL- 2-0 Yes [id number] TAKE 1 [facility] hydrochloro 5-03 TABLET ity of thiazide 00:00: TWICE A [place] 20-12.5 mg 00 DAY Medical per tablet Branch metFORMIN 2-0 Yes [id number] 1000mg Take 1 [facility] 1,000 mg 5-03 tablet by ity of tablet 00:00: mouth 2 [place] 00 (two) Medical times Branch daily with meals. lisinopriL- 2-0 Yes [id number] TAKE 1 [facility] hydrochloro 5-03 TABLET ity of thiazide 00:00: TWICE A [place] 20-12.5 mg 00 DAY Medical per tablet Branch metFORMIN 2021-0 Yes [id number] 1000mg Take 1 [facility] 1,000 mg 5-03 tablet by ity of tablet 00:00: mouth 2 [place] 00 (two) Medical times Branch daily with meals. lisinopriL- 2-0 Yes [id number] TAKE 1 [facility] hydrochloro 5-03 TABLET ity of thiazide 00:00: TWICE A [place] 20-12.5 mg 00 DAY Medical per tablet Branch lisinopriL- 2022-0 Yes [id number] TAKE 1 [facility] hydrochloro 5-03 TABLET ity of thiazide 00:00: TWICE A [place] 20-12.5 mg 00 DAY Medical per tablet Branch lisinopriL- 2022-0 2021- No [id number] TAKE 1 [facility] hydrochloro 5-03 11-01 TABLET ity o f thiazide 00:00: 00:00 TWICE A [place] 20-12.5 mg 00 :00 DAY Medical per tablet Branch lisinopriL- 2022-0 2- No [id number] TAKE 1 [facility] hydrochloro 5-03 11-01 TABLET ity o f thiazide 00:00: 00:00 TWICE A [place] 20-12.5 mg 00 :00 DAY Medical per tablet Branch metFORMIN 2022-0 2022- No [id number] 1000mg Take 1 [facility] 1,000 mg 5-03 10-29 tablet by ity o f tablet 00:00: 00:00 mouth 2 [place] 00 :00 (two) Medical times Branch daily with meals. dapaglifloz 2022-0 Yes [id number] 10mg Take 1 [facility] in 4-26 tablet by ity of () 00:00: mouth [place] 10 mg 00 daily. Medical tablet Branch dapaglifloz 2022-0 Yes [id number] 10mg Take 1 [facility] in 4-26 tablet by ity of () 00:00: mouth [place] 10 mg 00 daily. Medical tablet Branch dapaglifloz 2022-0 Yes [id number] 10mg Take 1 [facility] in 4-26 tablet by ity of () 00:00: mouth [place] 10 mg 00 daily. Medical tablet Branch dapaglifloz 2-0 Yes [id number] 10mg Take 1 [facility] in 4-26 tablet by ity of () 00:00: mouth [place] 10 mg 00 daily. Medical tablet Branch dapaglifloz 2022-0 Yes [id number] 10mg Take 1 [facility] in 4-26 tablet by ity of () 00:00: mouth [place] 10 mg 00 daily. Medical tablet Branch dapaglifloz 2022-0 2022- No [id number] 10mg Take 1 [facility] in 4-26 09-25 tablet by ity of () 00:00: 00:00 mouth [place] 10 mg 00 :00 daily. Medical tablet Branch ACCU-CHEK 2022-0 Yes USE TO [employer] GUIDE TEST 4-06 CHECK ity of [...] DAY Branch ACCU-CHEK 2022-0 Yes USE TO [employer] GUIDE TEST 4-06 CHECK ity of [...] ACCU-CHEK 202-0 Yes USE TO Univer s GUIDE TEST [...] ACCU-CHEK 202-0 Yes USE TO Univer s GUIDE TEST [...] No USE TO Unive rs FASTCLIX 3-17 09-13 CHECK ity of LANCET DRUM 00:00: 00:00 GLUCOSE 3 [place] Misc 00 :00 TIMES A Medical DAY Branch Insulin 0 Yes [id number] Use 3 [facility] [place], 2-14 times ity of Disposable, 00:00: daily with [place] (BD INSULIN 00 insulin. Medi jada PEN NEEDLE Dx E11.65 Bran ch UF) 31 gauge x 5/16" Ndle Insulin Yes [id number] Use 3 [facility] [place], 2-14 times ity of Disposable, 00:00: daily with [place] (BD INSULIN 00 insulin. Medi jada PEN NEEDLE Dx E11.65 Bran ch UF) 31 gauge x 5/16" Ndle Insulin 0 Yes [id number] Use 3 [facility] [place], 2-14 times ity of Disposable, 00:00: daily with [place] (BD INSULIN 00 insulin. Medi jada PEN NEEDLE Dx E11.65 Bran ch UF) 31 gauge x 5/16" Ndle Insulin 0 Yes [id number] Use 3 [facility] [place], 2-14 times ity of Disposable, 00:00: daily with [place] (BD INSULIN 00 insulin. Medi jada PEN NEEDLE Dx E11.65 Bran ch UF) 31 gauge x 5/16" Ndle Insulin 0 Yes [id number] Use 3 [facility] [place], 2-14 times ity of Disposable, 00:00: daily with [place] (BD INSULIN 00 insulin. Medi jada PEN NEEDLE Dx E11.65 Bran ch UF) 31 gauge x 5/16" Ndle Insulin 0 Yes [id number] Use 3 [facility] [place], 2-14 times ity of Disposable, 00:00: daily with [place] (BD INSULIN 00 insulin. Medi jada PEN NEEDLE Dx E11.65 Bran ch UF) 31 gauge x 5/16" Ndle Insulin 2021-0 Yes [id number] Use 3 [facility] [place], 2-14 times ity of Disposable, 00:00: daily with [place] (BD INSULIN 00 insulin. Medi jada PEN NEEDLE Dx E11.65 Bran ch UF) 31 gauge x 5/16" Ndle Insulin 2021-0 Yes [id number] Use 3 [facility] [place], 2-14 times ity of Disposable, 00:00: daily with [place] (BD INSULIN 00 insulin. Medi jada PEN NEEDLE Dx E11.65 Bran ch UF) 31 gauge x 5/16" Ndle Insulin 2021-0 Yes [id number] Use 3 [facility] [place], 2-14 times ity of Disposable, 00:00: daily with [place] (BD INSULIN 00 insulin. Medi jada PEN NEEDLE Dx E11.65 Bran ch UF) 31 gauge x 5/16" Ndle Insulin 2021-0 Yes [id number] Use 3 [facility] [place], 2-14 times ity of Disposable, 00:00: daily with [place] (BD INSULIN 00 insulin. Medi jada PEN NEEDLE Dx E11.65 Bran ch UF) 31 gauge x 5/16" Ndle Insulin 2021-0 Yes [id number] Use 3 [facility] [place], 2-14 times ity of Disposable, 00:00: daily with [place] (BD INSULIN 00 insulin. Medi jada PEN NEEDLE Dx E11.65 Bran ch UF) 31 gauge x 5/16" Ndle Insulin 2021-0 Yes [id number] Use 3 [facility] [place], 2-14 times ity of Disposable, 00:00: daily with [place] (BD INSULIN 00 insulin. Medi jada PEN NEEDLE Dx E11.65 Bran ch UF) 31 gauge x 5/16" Ndle Insulin 2021-0 Yes [id number] Use 3 [facility] [place], 2-14 times ity of Disposable, 00:00: daily with [place] (BD INSULIN 00 insulin. Medi jada PEN NEEDLE Dx E11.65 Bran ch UF) 31 gauge x 5/16" Ndle Insulin 2021-0 Yes [id number] Use 3 [facility] [place], 2-14 times ity of Disposable, 00:00: daily with [place] (BD INSULIN 00 insulin. Medi jada PEN NEEDLE Dx E11.65 Bran ch UF) 31 gauge x 5/16" Ndle Insulin 2021-0 Yes [id number] Use 3 [facility] [place], 2-14 times ity of Disposable, 00:00: daily with [place] (BD INSULIN 00 insulin. Medi jada PEN NEEDLE Dx E11.65 Bran ch UF) 31 gauge x 5/16" Ndle Insulin Yes [id number] Use 3 [facility] [place], 2-14 times ity of Disposable, 00:00: daily with [place] (BD INSULIN 00 insulin. Medi jada PEN NEEDLE Dx E11.65 Bran ch UF) 31 gauge x 5/16" Ndle Insulin Yes [id number] Use 3 [facility] [place], 2-14 times ity of Disposable, 00:00: daily with [place] (BD INSULIN 00 insulin. Medi jada PEN NEEDLE Dx E11.65 Bran ch UF) 31 gauge x 5/16" Ndle Insulin Yes [id number] Use 3 [facility] [place], 2-14 times ity of Disposable, 00:00: daily with [place] (BD INSULIN 00 insulin. Medi jada PEN NEEDLE Dx E11.65 Bran ch UF) 31 gauge x 5/16" Ndle Insulin 2021- No [id number] Use 3 [facility] ers [place], 2-14 12-15 times ity of Disposable, 00:00: 00:00 daily with [place] (BD INSULIN 00 :00 insulin. Medi jada PEN NEEDLE Dx E11.65 Bran ch UF) 31 gauge x 5/16" Ndle aspirin 2020-06 Yes 81mg Take 81 mg U nivers mg EC 2-02 by mouth ity of tablet 17:14: daily. [address] multivit-mi 2020-06 Yes 1{tbl} Take 1 Un beth n-FA-lycope 2-02 tablet by ity of n-lutein 17:14: mouth [place] (CENTRUM 57 daily. Medical SILVER MEN) Branch 300-600-300 mcg Tab aspirin 2020-06 Yes 81mg Take 81 mg U nivers mg EC 2-02 by mouth ity of tablet 17:14: daily. [address] multivit-mi 2020-06 Yes 1{tbl} Take 1 Un b[facility] n-FA-lycope 2-02 tablet by ity of n-lutein 17:14: mouth [place] (CENTRUM 57 daily. Medical SILVER MEN) Branch 300-600-300 mcg Tab aspirin 2020-06 Yes 81mg Take 81 mg U nivers mg EC 2-02 by mouth ity of tablet 17:14: daily. [address] 2020-06 Yes 1{tbl} Take 1 Un beth n-FA-lycope 2-02 tablet by ity of n-lutein 17:14: mouth [place] (CENTRUM 57 daily. Medical SILVER MEN) Branch 300-600-300 mcg Tab aspirin 81 2020-06 Yes 81mg Take 81 mg U nivers mg EC 2-02 by mouth ity of tablet 17:14: daily. [address] 2020-06 Yes 1{tbl} Take 1 Un beth n-FA-lycope 2-02 tablet by ity of n-lutein 17:14: mouth [place] (CENTRUM 57 daily. Medical SILVER MEN) Branch 300-600-300 mcg Tab aspirin 2020-06 Yes 81mg Take 81 mg U nivers mg EC 2-02 by mouth ity of tablet 17:14: daily. [address] 2020-06 Yes 1{tbl} Take 1 Un beth n-FA-lycope 2-02 tablet by ity of n-lutein 17:14: mouth [place] (CENTRUM 57 daily. Medical SILVER MEN) Branch 300-600-300 mcg Tab aspirin 81 2020-06 Yes 81mg Take 81 mg U nivers mg EC 2-02 by mouth ity of tablet 17:14: daily. [address] 2020-06 Yes 1{tbl} Take 1 Un beth n-FA-lycope 2-02 tablet by ity of n-lutein 17:14: mouth [place] (CENTRUM 57 daily. Medical SILVER MEN) Branch 300-600-300 mcg Tab aspirin 81 2020-06 Yes 81mg Take 81 mg U nivers mg EC 2-02 by mouth ity of tablet 17:14: daily. [address] 2020-06 Yes 1{tbl} Take 1 Un beth n-FA-lycope 2-02 tablet by ity of n-lutein 17:14: mouth [place] (CENTRUM 57 daily. Medical SILVER MEN) Branch 300-600-300 mcg Tab aspirin 81 2020-06 Yes 81mg Take 81 mg U nivers mg EC 2-02 by mouth ity of tablet 17:14: daily. [address] 2020-06 Yes 1{tbl} Take 1 Un beth n-FA-lycope 2-02 tablet by ity of n-lutein 17:14: mouth [place] (CENTRUM 57 daily. Medical SILVER MEN) Branch 300-600-300 mcg Tab aspirin 81 2020-06 Yes 81mg Take 81 mg U nivers mg EC 2-02 by mouth ity of tablet 17:14: daily. [address] 2020-06 Yes 1{tbl} Take 1 Un beth n-FA-lycope 2-02 tablet by ity of n-lutein 17:14: mouth [place] (CENTRUM 57 daily. Medical SILVER MEN) Branch 300-600-300 mcg Tab aspirin 81 2020-06 Yes 81mg Take 81 mg U nivers mg EC 2-02 by mouth ity of tablet 17:14: daily. [address] 2020-06 Yes 1{tbl} Take 1 Un beth n-FA-lycope 2-02 tablet by ity of n-lutein 17:14: mouth [place] (CENTRUM 57 daily. Medical SILVER MEN) Branch 300-600-300 mcg Tab aspirin 81 2020-06 Yes 81mg Take 81 mg U nivers mg EC 2-02 by mouth ity of tablet 17:14: daily. [address] 2020-06 Yes 1{tbl} Take 1 Un b[facility] n-FA-lycope 2-02 tablet by ity of n-lutein 17:14: mouth [place] (CENTRUM 57 daily. Medical SILVER MEN) Branch 300-600-300 mcg Tab aspirin 81 2020-06 Yes 81mg Take 81 mg U nivers mg EC 2-02 by mouth ity of tablet 17:14: daily. [address] 2020-06 Yes 1{tbl} Take 1 Un beth n-FA-lycope 2-02 tablet by ity of n-lutein 17:14: mouth [place] (CENTRUM 57 daily. Medical SILVER MEN) Branch 300-600-300 mcg Tab aspirin 81 2020-06 Yes 81mg Take 81 mg U nivers mg EC 2-02 by mouth ity of tablet 17:14: daily. [address] 2020-06 Yes 1{tbl} Take 1 Un beth n-FA-lycope 2-02 tablet by ity of n-lutein 17:14: mouth [place] (CENTRUM 57 daily. Medical SILVER MEN) Branch 300-600-300 mcg Tab aspirin 81 2020-06 Yes 81mg Take 81 mg U nivers mg EC 2-02 by mouth ity of tablet 17:14: daily. [address] 2020-06 Yes 1{tbl} Take 1 Un beth n-FA-lycope 2-02 tablet by ity of n-lutein 17:14: mouth [place] (CENTRUM 57 daily. Medical SILVER MEN) Branch 300-600-300 mcg Tab aspirin 81 2020-06 Yes 81mg Take 81 mg U nivers mg EC 2-02 by mouth ity of tablet 17:14: daily. [address] 2020-06 Yes 1{tbl} Take 1 Un beth n-FA-lycope 2-02 tablet by ity of n-lutein 17:14: mouth [place] (CENTRUM 57 daily. Medical SILVER MEN) Branch 300-600-300 mcg Tab aspirin 81 2020-06 Yes 81mg Take 81 mg U nivers mg EC 2-02 by mouth ity of tablet 17:14: daily. [address] 2020-06 Yes 1{tbl} Take 1 Un beth n-FA-lycope 2-02 tablet by ity of n-lutein 17:14: mouth [place] (CENTRUM 57 daily. Medical SILVER MEN) Branch 300-600-300 mcg Tab aspirin 81 2020-06 Yes 81mg Take 81 mg U nivers mg EC 2-02 by mouth ity of tablet 17:14: daily. [address] 2020-06 Yes 1{tbl} Take 1 Un beth n-FA-lycope 2-02 tablet by ity of n-lutein 17:14: mouth [place] (CENTRUM 57 daily. Medical SILVER MEN) Branch 300-600-300 mcg Tab aspirin 81 2020-06 Yes 81mg Take 81 mg U nivers mg EC 2-02 by mouth ity of tablet 17:14: daily. [address] 2020-06 Yes 1{tbl} Take 1 Un beth n-FA-lycope 2-02 tablet by ity of n-lutein 17:14: mouth [place] (CENTRUM 57 daily. Medical SILVER MEN) Branch 300-600-300 mcg Tab aspirin 81 2020-06 Yes 81mg Take 81 mg U nivers mg EC 2-02 by mouth ity of tablet 17:14: daily. [address] 2020-06 Yes 1{tbl} Take 1 Un beth n-FA-lycope 2-02 tablet by ity of n-lutein 17:14: mouth [place] (CENTRUM 57 daily. Medical SILVER MEN) Branch 300-600-300 mcg Tab aspirin 81 2020-06 Yes 81mg Take 81 mg U nivers mg EC 2-02 by mouth ity of tablet 17:14: daily. [address] 2020-06 Yes 1{tbl} Take 1 Un [facility]eth n-FA-lycope 2-02 tablet by ity of n-lutein 17:14: mouth [place] (CENTRUM 57 daily. Medical SILVER MEN) Branch 300-600-300 mcg Tab aspirin 81 2020-06 Yes 81mg Take 81 mg U nivers mg EC 2-02 by mouth ity of tablet 17:14: daily. [address] 2020-06 Yes 1{tbl} Take 1 Un [facility] n-FA-lycope 2-02 tablet by ity of n-lutein 17:14: mouth [place] (CENTRUM 57 daily. Medical SILVER MEN) Branch 300-600-300 mcg Tab aspirin 81 2020-06 Yes 81mg Take 81 mg U nivers mg EC 2-02 by mouth ity of tablet 17:14: daily. [address] 2020-06 Yes 1{tbl} Take 1 Un b[facility] n-FA-lycope 2-02 tablet by ity of n-lutein 17:14: mouth [place] (CENTRUM 57 daily. Medical SILVER MEN) Branch 300-600-300 mcg Tab aspirin 81 2020-06 Yes 81mg Take 81 mg U nivers mg EC 2-02 by mouth ity of tablet 17:14: daily. [address] 2020-06 Yes 1{tbl} Take 1 Un [facility] n-FA-lycope 2-02 tablet by ity of n-lutein 17:14: mouth [place] (CENTRUM 57 daily. Medical SILVER MEN) Branch 300-600-300 mcg Tab aspirin 81 2021-1 Yes 81mg Take 81 mg U nivers mg EC 2-02 by mouth ity of tablet 17:14: daily. [address] 2020-06 Yes 1{tbl} Take 1 Un [facility] n-FA-lycope 2-02 tablet by ity of n-lutein 17:14: mouth [place] (CENTRUM 57 daily. Medical SILVER MEN) Branch 300-600-300 mcg Tab aspirin 2020-06 Yes 81mg Take 81 mg U nivers mg EC 2-02 by mouth ity of tablet 17:14: daily. [address] 2020-06 Yes 1{tbl} Take 1 Un [facility] n-FA-lycope 2-02 tablet by ity of n-lutein 17:14: mouth [place] (CENTRUM 57 daily. Medical SILVER MEN) Branch 300-600-300 mcg Tab aspirin 2020-06 Yes 81mg Take 81 mg U nivers mg EC 2-02 by mouth ity of tablet 17:14: daily. [address] 2020-06 Yes 1{tbl} Take 1 Un [facility] n-FA-lycope 2-02 tablet by ity of n-lutein 17:14: mouth [place] (CENTRUM 57 daily. Medical SILVER MEN) Branch 300-600-300 mcg Tab aspirin 2020-06 Yes 81mg Take 81 mg U nivers mg EC 2-02 by mouth ity of tablet 17:14: daily. [address] 2020-06 Yes 1{tbl} Take 1 Un [facility]eth n-FA-lycope 2-02 tablet by ity of n-lutein 17:14: mouth [place] (CENTRUM 57 daily. Medical SILVER MEN) Branch 300-600-300 mcg Tab aspirin 2020-06 Yes 81mg Take 81 mg U nivers mg EC 2-02 by mouth ity of tablet 17:14: daily. [address] 2020-06 Yes 1{tbl} Take 1 Un [facility] n-FA-lycope 2-02 tablet by ity of n-lutein 17:14: mouth [place] (CENTRUM 57 daily. Medical SILVER MEN) Branch 300-600-300 mcg Tab aspirin 2020-06 Yes 81mg Take 81 mg U nivers mg EC 2-02 by mouth ity of tablet 17:14: daily. [address] 2020-06 Yes 1{tbl} Take 1 Un beth n-FA-lycope 2-02 tablet by ity of n-lutein 17:14: mouth [place] (CENTRUM 57 daily. Medical SILVER MEN) Branch 300-600-300 mcg Tab aspirin 81 2020-06 Yes 81mg Take 81 mg U nivers mg EC 2-02 by mouth ity of tablet 17:14: daily. [address] 2020-06 Yes 1{tbl} Take 1 Un beth n-FA-lycope 2-02 tablet by ity of n-lutein 17:14: mouth [place] (CENTRUM 57 daily. Medical SILVER MEN) Branch 300-600-300 mcg Tab aspirin 2020-06 Yes 81mg Take 81 mg U nivers mg EC 2-02 by mouth ity of tablet 17:14: daily. [address] 2020-06 Yes 1{tbl} Take 1 Un beth n-FA-lycope 2-02 tablet by ity of n-lutein 17:14: mouth [place] (CENTRUM 57 daily. Medical SILVER MEN) Branch 300-600-300 mcg Tab aspirin 81 2020-06 Yes 81mg Take 81 mg U nivers mg EC 2-02 by mouth ity of tablet 17:14: daily. [address] 2020-06 Yes 1{tbl} Take 1 Un [facility] n-FA-lycope 2-02 tablet by ity of n-lutein 17:14: mouth [place] (CENTRUM 57 daily. Medical SILVER MEN) Branch 300-600-300 mcg Tab aspirin 81 2020-06 Yes 81mg Take 81 mg U nivers mg EC 2-02 by mouth ity of tablet 17:14: daily. [address] 2020-06 Yes 1{tbl} Take 1 Un [facility] n-FA-lycope 2-02 tablet by ity of n-lutein 17:14: mouth [place] (CENTRUM 57 daily. Medical SILVER MEN) Branch 300-600-300 mcg Tab aspirin 81 2020-06 Yes 81mg Take 81 mg U nivers mg EC 2-02 by mouth ity of tablet 17:14: daily. [address] 2020-06 Yes 1{tbl} Take 1 Un [facility] n-FA-lycope 2-02 tablet by ity of n-lutein 17:14: mouth [place] (CENTRUM 57 daily. Medical SILVER MEN) Branch 300-600-300 mcg Tab aspirin 81 2020-06 Yes 81mg Take 81 mg U nivers mg EC 2-02 by mouth ity of tablet 17:14: daily. [address] 2020-06 Yes 1{tbl} Take 1 Un [facility] n-FA-lycope 2-02 tablet by ity of n-lutein 17:14: mouth [place] (CENTRUM 57 daily. Medical SILVER MEN) Branch 300-600-300 mcg Tab aspirin 81 2020-06 Yes 81mg Take 81 mg U nivers mg EC 2-02 by mouth ity of tablet 17:14: daily. [address] 2020-06 Yes 1{tbl} Take 1 Un [facility] n-FA-lycope 2-02 tablet by ity of n-lutein 17:14: mouth [place] (CENTRUM 57 daily. Medical SILVER MEN) Branch 300-600-300 mcg Tab aspirin 2020-06 Yes 81mg Take 81 mg U nivers mg EC 2-02 by mouth ity of tablet 17:14: daily. [address] 2020-06 Yes 1{tbl} Take 1 Un [facility] n-FA-lycope 2-02 tablet by ity of n-lutein 17:14: mouth [place] (CENTRUM 57 daily. Medical SILVER MEN) Branch 300-600-300 mcg Tab aspirin 2020-06 Yes 81mg Take 81 mg U nivers mg EC 2-02 by mouth ity of tablet 17:14: daily. [address] 2020-06 Yes 1{tbl} Take 1 Un [facility] n-FA-lycope 2-02 tablet by ity of n-lutein 17:14: mouth [place] (CENTRUM 57 daily. Medical SILVER MEN) Branch 300-600-300 mcg Tab aspirin 2020-06 Yes 81mg Take 81 mg U nivers mg EC 2-02 by mouth ity of tablet 17:14: daily. [address] 2020-06 Yes 1{tbl} Take 1 Un [facility] n-FA-lycope 2-02 tablet by ity of n-lutein 17:14: mouth [place] (CENTRUM 57 daily. Medical SILVER MEN) Branch 300-600-300 mcg Tab aspirin 81 2020-06 Yes 81mg Take 81 mg U nivers mg EC 2-02 by mouth ity of tablet 17:14: daily. [address] 2020-06 Yes 1{tbl} Take 1 Un [facility] n-FA-lycope 2-02 tablet by ity of n-lutein 17:14: mouth [place] (CENTRUM 57 daily. Medical SILVER MEN) Branch 300-600-300 mcg Tab aspirin 81 2020-06 Yes 81mg Take 81 mg U nivers mg EC 2-02 by mouth ity of tablet 17:14: daily. [address] 2020-06 Yes 1{tbl} Take 1 Un [facility] n-FA-lycope 2-02 tablet by ity of n-lutein 17:14: mouth [place] (CENTRUM 57 daily. Medical SILVER MEN) Branch 300-600-300 mcg Tab aspirin 81 2020-06 Yes 81mg Take 81 mg U nivers mg EC 2-02 by mouth ity of tablet 17:14: daily. [address] 2020-06 Yes 1{tbl} Take 1 Un [facility] n-FA-lycope 2-02 tablet by ity of n-lutein 17:14: mouth [place] (CENTRUM 57 daily. Medical SILVER MEN) Branch 300-600-300 mcg Tab aspirin 81 2020-06 Yes 81mg Take 81 mg U nivers mg EC 2-02 by mouth ity of tablet 17:14: daily. [address] 2020-06 Yes 1{tbl} Take 1 Un [facility] n-FA-lycope 2-02 tablet by ity of n-lutein 17:14: mouth [place] (CENTRUM 57 daily. Medical SILVER MEN) Branch 300-600-300 mcg Tab aspirin 81 2020-06 Yes 81mg Take 81 mg U nivers mg EC 2-02 by mouth ity of tablet 17:14: daily. [address] 2020-06 Yes 1{tbl} Take 1 Un [facility] n-FA-lycope 2-02 tablet by ity of n-lutein 17:14: mouth [place] (CENTRUM 57 daily. Medical SILVER MEN) Branch 300-600-300 mcg Tab aspirin 81 2020-06 Yes 81mg Take 81 mg U nivers mg EC 2-02 by mouth ity of tablet 17:14: daily. [address] 2020-06 Yes 1{tbl} Take 1 Un [facility] n-FA-lycope 2-02 tablet by ity of n-lutein 17:14: mouth [place] (CENTRUM 57 daily. Medical SILVER MEN) Branch 300-600-300 mcg Tab aspirin 81 2020-06 Yes 81mg Take 81 mg U nivers mg EC 2-02 by mouth ity of tablet 17:14: daily. [address] 2020-06 Yes 1{tbl} Take 1 Un [facility] n-FA-lycope 2-02 tablet by ity of n-lutein 17:14: mouth [place] (CENTRUM 57 daily. Medical SILVER MEN) Branch 300-600-300 mcg Tab aspirin 81 2020-06 Yes 81mg Take 81 mg U nivers mg EC 2-02 by mouth ity of tablet 17:14: daily. [address] 2020-06 Yes 1{tbl} Take 1 Un [facility] n-FA-lycope 2-02 tablet by ity of n-lutein 17:14: mouth [place] (CENTRUM 57 daily. Medical SILVER MEN) Branch 300-600-300 mcg Tab aspirin 81 2020-06 Yes 81mg Take 81 mg U nivers mg EC 2-02 by mouth ity of tablet 17:14: daily. [address] 2020-06 Yes 1{tbl} Take 1 Un [facility] n-FA-lycope 2-02 tablet by ity of n-lutein 17:14: mouth [place] (CENTRUM 57 daily. Medical SILVER MEN) Branch 300-600-300 mcg Tab aspirin 81 2020-06 Yes 81mg Take 81 mg U nivers mg EC 2-02 by mouth ity of tablet 17:14: daily. [address] 2020-06 Yes 1{tbl} Take 1 Un [facility] n-FA-lycope 2-02 tablet by ity of n-lutein 17:14: mouth [place] (CENTRUM 57 daily. Medical SILVER MEN) Branch 300-600-300 mcg Tab aspirin 81 2020-06 Yes 81mg Take 81 mg U nivers mg EC 2-02 by mouth ity of tablet 17:14: daily. [address] 2020-06 Yes 1{tbl} Take 1 Un [facility] n-FA-lycope 2-02 tablet by ity of n-lutein 17:14: mouth [place] (CENTRUM 57 daily. Medical SILVER MEN) Branch 300-600-300 mcg Tab aspirin 2020-06 Yes 81mg Take 81 mg U nivers mg EC 2-02 by mouth ity of tablet 17:14: daily. [address] 2020-06 Yes 1{tbl} Take 1 Un [facility] n-FA-lycope 2-02 tablet by ity of n-lutein 17:14: mouth [place] (CENTRUM 57 daily. Medical SILVER MEN) Branch 300-600-300 mcg Tab aspirin 2020-06 Yes 81mg Take 81 mg U nivers mg EC 2-02 by mouth ity of tablet 17:14: daily. [address] 2020-06 Yes 1{tbl} Take 1 Un [facility] n-FA-lycope 2-02 tablet by ity of n-lutein 17:14: mouth [place] (CENTRUM 57 daily. Medical SILVER M[facility]) Branch 300-600-300 mcg Tab aspirin 2020-06 Yes 81mg Take 81 mg U nivers mg EC 2-02 by mouth ity of tablet 17:14: daily. [address] 2020-06 Yes 1{tbl} Take 1 Un beth n-FA-lycope 2-02 tablet by ity of n-lutein 17:14: mouth [place] (C[facility]TRUM 57 daily. Medical SILVER [facility]) Branch 300-600-300 mcg Tab aspirin 2020-06 Yes 81mg Take 81 mg U nivers mg EC 2-02 by mouth ity of tablet 17:14: daily. [address] 2020-06 Yes 1{tbl} Take 1 Un beth n-FA-lycope 2-02 tablet by ity of n-lutein 17:14: mouth [place] (CENTRUM 57 daily. Medical SILVER M[facility]) Branch 300-600-300 mcg Tab aspirin 2020-06 Yes 81mg Take 81 mg U nivers mg EC 2-02 by mouth ity of tablet 17:14: daily. [place] [id number] [facility] multivit-mi 2020-06 Yes 1{tbl} Take 1 Un beth n-FA-lycope 2-02 tablet by ity of n-lutein 17:14: mouth [place] (CENTRUM 57 daily. Medical SILVER MEN) Branch 300-600-300 mcg Tab aspirin 81 2020-06 Yes 81mg Take 81 mg U nivers mg EC 2-02 by mouth ity of tablet 17:14: daily. [place] 57 Medical Branch multivit-mi 2020-06 Yes 1{tbl} [...] s nuous 00 Medical (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) Misc Blood-Gluco 2020-06 Yes Change [facility] ers [...] s nuous 00 Medical (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) Misc Blood-Gluco 2020-06 Yes Change [facility] ers se 0-11 transmitte ity of Transmitter 00:00: r every 90 [place] (DEXCOM G6 00 days, Dx: Medi 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 ) Marcie Blood-Gluco 2020-06 Yes Use Daily U nivers se 0-11 , Dx: [place]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) Misc Blood-Gluco 2020-06 Yes Use Daily U nivers se 0-11 , Dx: [place] 00:[place]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) Misc Blood-Gluco 2020-06 Yes Use Daily U nivers se 0-11 , Dx: [place] 00:[place]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) Misc Blood-Gluco 2020-06 Yes Use Daily U nivers se 0-11 , Dx: [place] 00:00[place]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) Misc Blood-Gluco 2020-06 Yes Use Daily U nivers se 0-11 , Dx: [facility] 00:[place]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) Misc Blood-Gluco 2020-06 Yes Use Daily U nivers se 0-11 , Dx: [place] 00:00[place]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) Misc Blood-Gluco 2020-06 Yes Use Daily U nivers se 0-11 , Dx: [place] 00:[place] [facility] [place]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) Misc Blood-Gluco 2020-06 Yes Use Daily U nivers se 0-11 , Dx: [facility] 00:[place]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) Misc Blood-Gluco 2020-06 Yes Use Daily U nivers se 0-11 , Dx: [facility] 00:00[place]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) Misc Blood-Gluco 2020-06 Yes Use Daily U nivers se 0-11 , Dx: [facility] 00:00[place]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) Misc Blood-Gluco 2020-06 Yes Use Daily U nivers se 0-11 , Dx: [facility] [place] 00:00[place]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) Misc Blood-Gluco 2020-06 Yes Use Daily U nivers se 0-11 , Dx: [facility] [place] 00:00[place]11.[place] (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) Misc Blood-Gluco 2020-06 Yes Use Daily U nivers se 0-11 , Dx: [facility] 00:00[place]11.[place] (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) Misc Blood-Gluco 2020-06 Yes Use Daily U nivers se 0-11 , Dx: [facility] 00:00[place]11.[place] [facility] (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) Misc Blood-Gluco 2020-06 Yes Use Daily U nivers se 0-11 , Dx: [facility] 00:00[place]11.[place] (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) Misc Blood-Gluco 2020-06 Yes Use Daily U nivers se 0-11 , Dx: [facility] 00:00: E11.[place] [facility] (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) Misc Blood-Gluco 2020-06 Yes Use Daily U nivers se 0-11 , Dx: [facility] 00:00: [place]11.[place] (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) Misc Blood-Gluco 2020-06 Yes Use Daily U nivers se 0-11 , Dx: [facility] 00:00: [place]11.[place] [facility] (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) Misc Blood-Gluco 2020-06 Yes Use Daily U nivers se 0-11 , Dx: [facility] 00:00: [place]11.[place] (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) Misc Blood-Gluco 2020-06 Yes Use Daily U nivers se 0-11 , Dx: [facility] 00:00: E11.[place] [facility] (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) Misc Blood-Gluco 2020-06 Yes Use Daily U nivers se 0-11 , Dx: [facility] 00:00: E11.[place] (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) Misc Blood-Gluco 2020-06 Yes Use Daily U nivers se 0-11 , Dx: [facility] 00:00: E11.[place] [facility] (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) Misc Blood-Gluco 2020-06 Yes Use Daily U nivers se 0-11 , Dx: [place] 00:00: [place]11.[place] (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) Misc Blood-Gluco 2020-06 Yes Use Daily U nivers se 0-11 , Dx: [facility] 00:00: E11.[place] [facility] (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) Misc Blood-Gluco 2020-06 Yes Use Daily U nivers se 0-11 , Dx: [facility] 00:00: E11.[place] [facility] (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) Misc Blood-Gluco 2020-06 Yes Use Daily U nivers se 0-11 , Dx: [facility] [place] 00:00: E11.[place] [facility] (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) Misc Blood-Gluco 2020-06 Yes Use Daily U nivers se 0-11 , Dx: [facility] 00:00: E11.[place] (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) Misc Blood-Gluco 2020-06 Yes Use Daily U nivers se 0-11 , Dx: [facility] 00:00: E11.[place] (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) Misc Blood-Gluco 2020-06 Yes Use Daily U nivers se 0-11 , Dx: [place] 00:00: E11.[place] [facility] (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) Misc Blood-Gluco 2020-06 Yes Use Daily U nivers se 0-11 , Dx: [facility] [place] 00:00: E11.[place] [facility] (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) Misc Blood-Gluco 2020-06 Yes Use Daily U nivers se 0-11 , Dx: [facility] [place] 00:00: E11.[place] [facility] (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) Misc Blood-Gluco 2020-06 Yes Use Daily U nivers se 0-11 , Dx: [facility] 00:00: E11.[place] [facility] (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) Misc Blood-Gluco 2020-06 Yes Use Daily U nivers se 0-11 , Dx: [facility] [place] 00:00: E11.[place] [facility] (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) Misc Blood-Gluco 2020-06 Yes Use Daily U nivers se 0-11 , Dx: [facility] [place] 00:00: E11.[place] [facility] (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) Misc Blood-Gluco 2020-06 Yes Use Daily U nivers se 0-11 , Dx: [facility] [place] 00:00: E11.[place] [facility] (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) Misc Blood-Gluco 2020-06 Yes Use Daily U nivers se 0-11 , Dx: [facility] 00:00: E11.[place] [facility] (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) Misc Blood-Gluco 2020-06 Yes Use Daily U nivers se 0-11 , Dx: [facility] [place] 00:00: E11.[place] [facility] (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) Misc Blood-Gluco 2020-06 Yes Use Daily U nivers se 0-11 , Dx: [facility]y of [place] 00:00: E11.[place] [facility] (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) Misc Blood-Gluco 2020-06 Yes Use Daily U nivers se 0-11 , Dx: [facility]y of [place] 00:00: E11.[place] [facility] (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) Misc Blood-Gluco 2020-06 Yes Use Daily U nivers se 0-11 , Dx: ity of [place] 00:00: E11.[place] [facility] (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) Misc Blood-Gluco 2020-06 Yes Use Daily U nivers se 0-11 , Dx: ity of [place] 00:00: E11.[place] Medical (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) Misc Blood-Gluco 2020-06 Yes Use Daily U nivers se 0-11 , Dx: ity of [place] 00:00: E11.65 [place] [facility] (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) Misc Blood-Gluco 2020-06 Yes Use Daily U nivers se 0-11 , Dx: ity of [place] 00:00: E11.65 [place] [facility] (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) Misc Blood-Gluco 2020-06 Yes Use Daily U nivers se 0-11 , Dx: ity of [place] 00:00: E11.65 [place] [facility] (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) Misc Blood-Gluco 2020-06 Yes Use Daily U nivers se 0-11 , Dx: [facility]y of [place] 00:00: E11.65 [place] [facility] (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) Misc Blood-Gluco 2020-06 Yes Use Daily U nivers se 0-11 , Dx: ity of [place] 00:00: E11.[place] [facility] (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) Misc Blood-Gluco 2020-06 Yes Use Daily U nivers se 0-11 , Dx: [facility]y of [place] 00:00: E11.65 [place] Medical (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) Misc Blood-Gluco 2020-06 Yes Use Daily U nivers se 0-11 , Dx: [facility]y of [place] 00:00: E11.[place] [facility] (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) Misc Blood-Gluco 2020-06 Yes Use Daily U nivers se 0-11 , Dx: ity of [place] 00:00: E11.65 [place] [facility] (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) Misc Blood-Gluco 2020-06 Yes Use Daily U nivers se 0-11 , Dx: [place] of [place] 00:00: E11.[place] [facility] (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) Misc Blood-Gluco 2020-06 Yes Use Daily U nivers se 0-11 , Dx: ity of [place] 00:00: E11.[place] Medical (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) Misc Blood-Gluco 2020-06 Yes Use Daily U nivers se 0-11 , Dx: ity of [place] 00:00: E11.65 [place] [facility] (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) Misc Blood-Gluco 2020-06 Yes Use Daily U nivers se 0-11 , Dx: [facility]y of [place] 00:00: E11.65 [place] [facility] (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) Misc Blood-Gluco 2020-06 Yes Use Daily U nivers se 0-11 , Dx: [facility]y of [place] 00:00: E11.[place] [facility] (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) Misc Blood-Gluco 2020-06- No Change Uni vers [...] [place] 00 weekly. Medical Branch semaglutide 2020-0 3- No 1.2mg inject 1.2 Univers (OZEMPIC 7-27 03-03 mg under ity of [place]) 00:00: 00:00 the skin [place] 00 :00 weekly. Medical Branch semaglutide 2020-0 3- No 1.2mg inject 1.2 Univers (OZEMPIC 7-27 03-03 mg under ity of [place]) 00:00: 00:00 the skin [place] 00 :00 weekly. Medical Branch methocarbam 2020-0 Yes [id number] 750mg Take 1 Univers oL 750 mg 7-11 tablet by ity o f tablet 00:00: mouth 4 [place] (four) Medical times Branch daily. methocarbam 2020-0 Yes [id number] 750mg Take 1 Univers oL 750 mg 7-11 tablet by ity o f tablet 00:00: mouth [address] [place] [address] ([facility]) Medical times Branch daily. methocarbam 2020-0 Yes [id number] 750mg Take 1 Univers oL 750 mg 7-11 tablet by ity o f tablet 00:00: mouth [address] [place] [address] (four) Medical times Branch daily. methocarbam 2020-0 Yes [id number] 750mg Take 1 Univers oL 750 mg 7-11 tablet by ity o f tablet 00:00: mouth [address] [place] [address] (four) Medical times Branch daily. methocarbam 2020-0 Yes [id number] 750mg Take 1 Univers oL 750 mg 7-11 tablet by ity o f tablet 00:00: mouth [address] [place] [address] (four) Medical times Branch daily. methocarbam 2020-0 Yes [id number] 750mg Take 1 Univers oL 750 mg 7-11 tablet by ity o f tablet 00:00: mouth [address] [place] [address] (four) Medical times Branch daily. methocarbam 2020-0 Yes [id number] 750mg Take 1 Univers oL 750 mg 7-11 tablet by ity o f tablet 00:00: mouth 4 [place] (four) Medical times Branch daily. methocarbam 2020-0 Yes [id number] 750mg Take 1 Univers oL 750 mg 7-11 tablet by ity o f tablet 00:00: mouth (four) Medical times Branch daily. methocarbam 2020-0 Yes [id number] 750mg Take 1 Univers oL 750 mg 7-11 tablet by ity o f tablet 00:00: mouth (four) Medical times Branch daily. methocarbam 2020-0 Yes [id number] 750mg Take 1 Univers oL 750 mg 7-11 tablet by ity o f tablet 00:00: mouth (four) Medical times Branch daily. methocarbam 2020-0 Yes [id number] 750mg Take 1 Univers oL 750 mg 7-11 tablet by ity o f tablet 00:00: mouth (four) Medical times Branch daily. methocarbam 2020-0 Yes [id number] 750mg Take 1 Univers oL 750 mg 7-11 tablet by ity o f tablet 00:00: mouth (four) Medical times Branch daily. methocarbam 2020-0 Yes [id number] 750mg Take 1 Univers oL 750 mg 7-11 tablet by ity o f tablet 00:00: mouth (four) Medical times Branch daily. methocarbam 2020-0 Yes [id number] 750mg Take 1 Univers oL 750 mg 7-11 tablet by ity o f tablet 00:00: mouth (four) Medical times Branch daily. methocarbam 2020-0 Yes [id number] 750mg Take 1 Univers oL 750 mg 7-11 tablet by ity o f tablet 00:00: mouth (four) Medical times Branch daily. methocarbam 2020-0 Yes [id number] 750mg Take 1 Univers oL 750 mg 7-11 tablet by ity o f tablet 00:00: mouth (four) Medical times Branch daily. methocarbam 2020-0 Yes [id number] 750mg Take 1 Univers oL 750 mg 7-11 tablet by ity o f tablet 00:00: mouth (four) Medical times Branch daily. methocarbam 1-0 Yes [id number] 750mg Take 1 Univers oL 750 mg 7-11 tablet by ity o f tablet 00:00: mouth (four) Medical times Branch daily. methocarbam 2020-0 Yes [id number] 750mg Take 1 Univers oL 750 mg 7-11 tablet by ity o f tablet 00:00: mouth (four) Medical times Branch daily. methocarbam 2020-0 Yes [id number] 750mg Take 1 Univers oL 750 mg 7-11 tablet by ity o f tablet 00:00: mouth (four) Medical times Branch daily. methocarbam 2020-0 Yes [id number] 750mg Take 1 Univers oL 750 mg 7-11 tablet by ity o f tablet 00:00: mouth (four) Medical times Branch daily. methocarbam 2020-0 Yes [id number] 750mg Take 1 Univers oL 750 mg 7-11 tablet by ity o f tablet 00:00: mouth (four) Medical times Branch daily. methocarbam 2020-0 Yes [id number] 750mg Take 1 Univers oL 750 mg 7-11 tablet by ity o f tablet 00:00: mouth (four) Medical times Branch daily. methocarbam 2020-0 Yes [id number] 750mg Take 1 Univers oL 750 mg 7-11 tablet by ity o f tablet 00:00: mouth (four) Medical times Branch daily. methocarbam 2020-0 Yes [id number] 750mg Take 1 Univers oL 750 mg 7-11 tablet by ity o f tablet 00:00: mouth (four) Medical times Branch daily. methocarbam 2020-0 Yes [id number] 750mg Take 1 Univers oL 750 mg 7-11 tablet by ity o f tablet 00:00: mouth (four) Medical times Branch daily. methocarbam 2020-0 Yes [id number] 750mg Take 1 Univers oL 750 mg 7-11 tablet by ity o f tablet 00:00: mouth (four) Medical times Branch daily. methocarbam 2020-0 Yes [id number] 750mg Take 1 Univers oL 750 mg 7-11 tablet by ity o f tablet 00:00: mouth (four) Medical times Branch daily. methocarbam 2020-0 Yes [id number] 750mg Take 1 Univers oL 750 mg 7-11 tablet by ity o f tablet 00:00: mouth (four) Medical times Branch daily. methocarbam 2020-0 Yes [id number] 750mg Take 1 Univers oL 750 mg 7-11 tablet by ity o f tablet 00:00: mouth (four) Medical times Branch daily. methocarbam 2020-0 Yes [id number] 750mg Take 1 Univers oL 750 mg 7-11 tablet by ity o f tablet 00:00: mouth (four) Medical times Branch daily. methocarbam 2020-0 Yes [id number] 750mg Take 1 Univers oL 750 mg 7-11 tablet by ity o f tablet 00:00: mouth (four) Medical times Branch daily. methocarbam 2020-0 Yes [id number] 750mg Take 1 Univers oL 750 mg 7-11 tablet by ity o f tablet 00:00: mouth (four) Medical times Branch daily. methocarbam 2020-0 Yes [id number] 750mg Take 1 Univers oL 750 mg 7-11 tablet by ity o f tablet 00:00: mouth (four) Medical times Branch daily. methocarbam 2020-0 Yes [id number] 750mg Take 1 Univers oL 750 mg 7-11 tablet by ity o f tablet 00:00: mouth (four) Medical times Branch daily. methocarbam 2020-0 Yes [id number] 750mg Take 1 Univers oL 750 mg 7-11 tablet by ity o f tablet 00:00: mouth (four) Medical times Branch daily. methocarbam 2020-0 Yes [id number] 750mg Take 1 Univers oL 750 mg 7-11 tablet by ity o f tablet 00:00: mouth (four) Medical times Branch daily. methocarbam 2020-0 Yes [id number] 750mg Take 1 Univers oL 750 mg 7-11 tablet by ity o f tablet 00:00: mouth (four) Medical times Branch daily. methocarbam 2020-0 Yes [id number] 750mg Take 1 Univers oL 750 mg 7-11 tablet by ity o f tablet 00:00: mouth (four) Medical times Branch daily. methocarbam 2020-0 Yes [id number] 750mg Take 1 Univers oL 750 mg 7-11 tablet by ity o f tablet 00:00: mouth (four) Medical times Branch daily. methocarbam 2020-0 Yes [id number] 750mg Take 1 Univers oL 750 mg 7-11 tablet by ity o f tablet 00:00: mouth (four) Medical times Branch daily. methocarbam 2020-0 Yes [id number] 750mg Take 1 Univers oL 750 mg 7-11 tablet by ity o f tablet 00:00: mouth (four) Medical times Branch daily. methocarbam 2020-0 Yes [id number] 750mg Take 1 Univers oL 750 mg 7-11 tablet by ity o f tablet 00:00: mouth (four) Medical times Branch daily. methocarbam 2020-0 Yes [id number] 750mg Take 1 Univers oL 750 mg 7-11 tablet by ity o f tablet 00:00: mouth (four) Medical times Branch daily. methocarbam 2020-0 Yes [id number] 750mg Take 1 Univers oL 750 mg 7-11 tablet by ity o f tablet 00:00: mouth (four) Medical times Branch daily. methocarbam 2020-0 Yes [id number] 750mg Take 1 Univers oL 750 mg 7-11 tablet by ity o f tablet 00:00: mouth (four) Medical times Branch daily. methocarbam 2020-0 Yes [id number] 750mg Take 1 Univers oL 750 mg 7-11 tablet by ity o f tablet 00:00: mouth (four) Medical times Branch daily. methocarbam 2020-0 Yes [id number] 750mg Take 1 Univers oL 750 mg 7-11 tablet by ity o f tablet 00:00: mouth (four) Medical times Branch daily. methocarbam 2020-0 Yes [id number] 750mg Take 1 Univers oL 750 mg 7-11 tablet by ity o f tablet 00:00: mouth (four) Medical times Branch daily. methocarbam 1-0 Yes [id number] 750mg Take 1 Univers oL 750 mg 7-11 tablet by ity o f tablet 00:00: mouth (four) Medical times Branch daily. methocarbam 2020-0 Yes [id number] 750mg Take 1 Univers oL 750 mg 7-11 tablet by ity o f tablet 00:00: mouth (four) Medical times Branch daily. methocarbam 1-0 Yes [id number] 750mg Take 1 Univers oL 750 mg 7-11 tablet by ity o f tablet 00:00: mouth 4 [place] ([facility]) Medical times Branch daily. methocarbam 1-0 Yes [id number] 750mg Take 1 Univers oL 750 mg 7-11 tablet by ity o f tablet 00:00: mouth 4 [place] ([facility]) Medical times Branch daily. methocarbam 1-0 Yes [id number] 750mg Take 1 Univers oL 750 mg 7-11 tablet by ity o f tablet 00:00: mouth 4 [place] (four) Medical times Branch daily. methocarbam 1-0 Yes [id number] 750mg Take 1 Univers oL 750 mg 7-11 tablet by ity o f tablet 00:00: mouth 4 [place] ([facility]) Medical times Branch daily. methocarbam 1-0 Yes [id number] 750mg Take 1 Univers oL 750 mg 7-11 tablet by ity o f tablet 00:00: mouth 4 [place] ([facility]) Medical times Branch daily. etodolac 2020-0 Yes Univers 500 mg 6-28 ity of tablet 00:00: [place] Medical Branch etodolac 1-0 Yes Univers 500 mg 6-28 ity of tablet 00:00: [place] [facility] Branch etodolac 1-0 Yes Univers 500 mg 6-28 ity of tablet 00:00: [place] [facility] Branch etodolac 1-0 Yes Univers 500 mg 6-28 ity of tablet 00:00: [place] [facility] Branch etodolac 1-0 Yes Univers 500 mg 6-28 ity of tablet 00:00: [place] [facility] Branch etodolac 1-0 Yes Univers 500 mg 6-28 ity of tablet 00:00: [place] [facility] Branch etodolac 1-0 Yes Univers 500 mg 6-28 ity of tablet 00:00: [place] [facility] etodolac 1-0 Yes Univers 500 mg 6-28 ity of tablet 00:00: [place] [facility] Branch etodolac 1-0 Yes Univers 500 mg 6-28 ity of tablet 00:00: [place] [facility] Branch etodolac 1-0 Yes Univers 500 mg 6-28 ity of tablet 00:00: [place] [facility] etodolac 2020-0 Yes Univers 500 mg 6-28 ity of tablet 00:00: [place] [facility] etodolac 2020-0 Yes Univers 500 mg 6-28 ity of tablet 00:00: [place] [facility] etodolac 2020-0 Yes Univers 500 mg 6-28 ity of tablet 00:00: [place] [facility] etodolac 2020-0 Yes Univers 500 mg 6-28 ity of tablet 00:00: [place] [facility] etodolac 2020-0 Yes Univers 500 mg 6-28 ity of tablet 00:00: [address] etodolac 2020-0 Yes Univers 500 mg 6-28 ity of tablet 00:00: [address] etodolac 2020-0 Yes Univers 500 mg 6-28 ity of tablet 00:00: [address] etodolac 2020-0 Yes Univers 500 mg 6-28 ity of tablet 00:00: [address] [facility] 2020-[facility] Yes [facility] 500 mg 6-28 ity of tablet 00:00: [address] etodolac 2020-0 Yes Univers 500 mg 6-28 ity of tablet 00:00: [address] [facility] 2020-0 Yes Univers 500 mg 6-28 ity of tablet 00:00: [address] etodolac 2020-0 Yes Univers 500 mg 6-28 ity of tablet 00:00: [address] etodolac 2020-0 Yes Univers 500 mg 6-28 ity of tablet 00:00: [place] [facility] etodolac 2020-0 Yes Univers 500 mg 6-28 ity of tablet 00:00: [address] etodolac 2020-0 Yes Univers 500 mg 6-28 ity of tablet 00:00: [address] etodolac 2020-0 Yes Univers 500 mg 6-28 ity of tablet 00:00: [address] etodolac 2020-0 Yes Univers 500 mg 6-28 ity of tablet 00:00: [address] etodolac 2020-0 Yes Univers 500 mg 6-28 ity of tablet 00:00: [place] [facility] etodolac 2020-0 Yes Univers 500 mg 6-28 ity of tablet 00:00: [place] [facility] Branch etodolac 2020-0 Yes Univers 500 mg 6-28 ity of tablet 00:00: [place] [facility] Branch etodolac 2020-0 Yes Univers 500 mg 6-28 ity of tablet 00:00: [place] [facility] etodolac 2020-0 Yes Univers 500 mg 6-28 ity of tablet 00:00: [place] [facility] Branch etodolac 2020-0 Yes Univers 500 mg 6-28 ity of tablet 00:00: [place] [facility] etodolac 2020-0 Yes Univers 500 mg 6-28 ity of tablet 00:00: [address] etodolac 2020-0 Yes Univers 500 mg 6-28 ity of tablet 00:00: [address] etodolac 2020-0 Yes Univers 500 mg 6-28 ity of tablet 00:00: [address] etodolac 2020-0 Yes Univers 500 mg 6-28 ity of tablet 00:00: [address] etodolac 2020-0 Yes Univers 500 mg 6-28 ity of tablet 00:00: [address] etodolac 2020-0 Yes Univers 500 mg 6-28 ity of tablet 00:00: [address] etodolac 2020-0 Yes Univers 500 mg 6-28 ity of tablet 00:00: [address] etodolac 2020-0 Yes Univers 500 mg 6-28 ity of tablet 00:00: [place] [address] Medical Branch etodolac 2020-0 Yes Univers 500 mg 6-28 ity of tablet 00:00: [place] [address] Medical Branch etodolac 2020-0 Yes Univers 500 mg 6-28 ity of tablet 00:00: [place] [address] Medical Branch etodolac 2020-0 Yes Univers 500 mg 6-28 ity of tablet 00:00: [address] Branch etodolac 2020-0 Yes Univers 500 mg 6-28 ity of tablet 00:00: [place] [address] Medical [place] etodolac 2020-0 Yes Univers 500 mg 6-28 ity of tablet 00:00: [place] [address] Medical Branch etodolac 2020-0 Yes Univers 500 [...] tablet 00:00: Medical Branch GABAPENTIN 2021-0 Yes [id number] TAKE 1 U nivers 100 mg 5-24 CAPSULE 3 ity of capsule 00:00: TIMES A Medical Branch GABAPENTIN 2021-0 Yes [id number] TAKE 1 U nivers 100 mg 5-24 CAPSULE 3 ity of capsule 00:00: TIMES A Medical Branch GABAPENTIN 2021-0 Yes [id number] TAKE 1 U nivers 100 mg 5-24 CAPSULE 3 ity of capsule 00:00: TIMES A Medical Branch GABAPENTIN 2021-0 Yes [id number] TAKE 1 U nivers 100 mg 5-24 CAPSULE 3 ity of capsule 00:00: TIMES A Medical Branch GABAPENTIN 2021-0 Yes [id number] TAKE 1 U nivers 100 mg 5-24 CAPSULE 3 ity of capsule 00:00: TIMES A Medical Branch GABAPENTIN 2021-0 Yes [id number] TAKE 1 U nivers 100 mg 5-24 CAPSULE 3 ity of capsule 00:00: TIMES A Medical Branch GABAPENTIN 2021-0 Yes [id number] TAKE 1 U nivers 100 mg 5-24 CAPSULE 3 ity of capsule 00:00: TIMES A Medical Branch GABAPENTIN 2021-0 Yes [id number] TAKE 1 U nivers 100 mg 5-24 CAPSULE 3 ity of capsule 00:00: TIMES A Medical Branch GABAPENTIN 2021-0 Yes [id number] TAKE 1 U nivers 100 mg 5-24 CAPSULE 3 ity of capsule 00:00: TIMES A Medical Branch GABAPENTIN 2021-0 Yes [id number] TAKE 1 U nivers 100 mg 5-24 CAPSULE 3 ity of capsule 00:00: TIMES A Medical Branch GABAPENTIN 2021-0 Yes [id number] TAKE 1 U nivers 100 mg 5-24 CAPSULE 3 ity of capsule 00:00: TIMES A Medical Branch GABAPENTIN 2021-0 Yes [id number] TAKE 1 U nivers 100 mg 5-24 CAPSULE 3 ity of capsule 00:00: TIMES A Medical Branch GABAPENTIN 2021-0 Yes [id number] TAKE 1 U nivers 100 mg 5-24 CAPSULE 3 ity of capsule 00:00: TIMES A Medical Branch GABAPENTIN 2021-0 Yes [id number] TAKE 1 U nivers 100 mg 5-24 CAPSULE 3 ity of capsule 00:00: TIMES A Medical Branch GABAPENTIN 2021-0 Yes [id number] TAKE 1 U nivers 100 mg 5-24 CAPSULE 3 ity of capsule 00:00: TIMES A Medical Branch GABAPENTIN 2021-0 2022- No [id number] TAKE 1 Univers 100 mg 5-24 12-11 CAPSULE 3 ity of capsule 00:00: 00:00 TIMES A 00 : Medical Branch ACCU-CHEK 2019-1 Yes Use to [employer] s GUIDE 1-14 check ity of GLUCOSE 00:00: glucose 3X [place] [facility] Misc 00 daily. [facility] DX:E11.65 Branch ACCU-CHEK 2019-1 Yes Use to [employer] [facility] GUIDE 1-14 check ity of GLUCOSE 00:00: glucose 3X [place] [facility] Misc 00 daily. [facility] DX:E11.65 Branch ACCU-CHEK 2019-1 Yes Use to [employer] [facility] GUIDE 1-14 check ity of GLUCOSE 00:00: glucose 3X [place] [facility] Misc 00 daily. [facility] DX:E11.65 Branch ACCU-CHEK 2019-1 Yes Use to [employer] [facility] GUIDE 1-14 check ity of GLUCOSE 00:00: glucose 3X [place] [facility] Misc 00 daily. Medical DX:E11.65 Branch ACCU-CHEK 2019-1 Yes Use to [employer] GUIDE 1-14 check ity of GLUCOSE 00:[place] 3X [place] [facility]isc 00 daily. Medical DX:E11.65 Branch ACCU-CHEK 2019-1 Yes Use to [employer] s GUIDE 1-14 check ity of GLUCOSE 00:00: glucose 3X [place] [facility] Misc 00 daily. Medical DX:E11.65 Branch ACCU-CHEK 2019-1 Yes Use to [employer] [facility] GUIDE 1-14 check ity of GLUCOSE 00:00: glucose 3X [place] [facility]isc 00 daily. Medical DX:E11.65 Branch ACCU-CHEK 2019-1 Yes Use to [facility] GUIDE 1-14 check ity of GLUCOSE 00:00: glucose 3X [place] [facility]isc 00 daily. Medical DX:E11.65 Branch ACCU-CHEK 2019-1 Yes Use to [facility] GUIDE 1-14 check ity of GLUCOSE 00:00: glucose 3X [place] [facility] Misc 00 daily. Medical DX:E11.65 Branch ACCU-CHEK 2019-1 Yes Use to [facility] GUIDE 1-14 check ity of GLUCOSE 00:00: glucose 3X [place] [facility] Misc 00 daily. Medical DX:E11.65 Branch ACCU-CHEK 2019-1 Yes Use to [facility] GUIDE 1-14 check ity of GLUCOSE 00:00: glucose 3X [place] [facility] Misc 00 daily. Medical DX:E11.65 Branch ACCU-CHEK 2019-1 Yes Use to [facility] GUIDE 1-14 check ity of GLUCOSE 00:00: glucose 3X [place] [facility] Misc 00 daily. Medical DX:E11.65 Branch ACCU-CHEK 2019-1 Yes Use to [facility] GUIDE 1-14 check ity of GLUCOSE 00:00: glucose 3X [place] [facility] Misc 00 daily. Medical DX:E11.65 Branch ACCU-CHEK 2019-1 Yes Use to [facility] GUIDE 1-14 check ity of GLUCOSE 00:00: glucose 3X [place] [facility] Misc 00 daily. Medical DX:E11.65 Branch ACCU-CHEK 2019-1 Yes Use to [facility] GUIDE 1-14 check ity of GLUCOSE 00:00: glucose 3X [place] MET[facility] Misc 00 daily. Medical DX:E11.65 Branch ACCU-CHEK 2019-1 Yes Use to [employer] [facility] GUIDE 1-14 check ity of GLUCOSE 00:00: glucose 3X [place] MET[facility] Misc 00 daily. Medical DX:E11.65 Branch ACCU-CHEK 2019-1 Yes Use to [employer] [facility] GUIDE 1-14 check ity of GLUCOSE 00:00: glucose 3X [place] MET[facility] Misc 00 daily. Medical DX:E11.65 Branch ACCU-CHEK 2019-1 Yes Use to [employer] [facility] GUIDE 1-14 check ity of GLUCOSE 00:00: glucose 3X [place] MET[facility] Misc 00 daily. Medical DX:E11.65 Branch ACCU-CHEK 2019-1 Yes Use to [employer] [facility] GUIDE 1-14 check ity of GLUCOSE 00:00: glucose 3X [place] MET[facility] Misc 00 daily. Medical DX:E11.65 Branch ACCU-CHEK 2019-1 Yes Use to [employer] [facility] GUIDE 1-14 check ity of GLUCOSE 00:00: glucose 3X [place] MET[facility] Misc 00 daily. Medical DX:E11.65 Branch ACCU-CHEK 2019-1 Yes Use to [facility] GUIDE 1-14 check ity of GLUCOSE 00:00: glucose 3X [place] MET[facility] Misc 00 daily. Medical DX:E11.65 Branch ACCU-CHEK 2019-1 Yes Use to [facility] GUIDE 1-14 check ity of GLUCOSE 00:00: glucose 3X [place] MET[facility] Misc 00 daily. Medical DX:E11.65 Branch ACCU-CHEK 2019-1 Yes Use to [facility] GUIDE 1-14 check ity of GLUCOSE 00:00: glucose 3X [place] MET[facility] Misc 00 daily. Medical DX:E11.65 Branch ACCU-CHEK 2019-1 Yes Use to [facility] GUIDE 1-14 check ity of GLUCOSE 00:00: glucose 3X [place] MET[facility] Misc 00 daily. Medical DX:E11.65 Branch ACCU-CHEK 2019-1 Yes Use to [facility] GUIDE 1-14 check ity of GLUCOSE 00:00: glucose 3X [place] MET[facility] Misc 00 daily. Medical DX:E11.65 Branch ACCU-CHEK 2019-1 Yes Use to [facility] GUIDE 1-14 check ity of GLUCOSE 00:00: glucose 3X [place] MET[facility] Misc 00 daily. Medical DX:E11.65 Branch ACCU-CHEK 2019-1 Yes Use to [employer] [facility] GUIDE 1-14 check ity of GLUCOSE 00:00: glucose 3X [place] MET[facility] Misc 00 daily. Medical DX:E11.65 Branch ACCU-CHEK 2019- Yes Use to [employer] [facility] GUIDE 1-14 check ity of GLUCOSE 00:00: glucose 3X [place] MET[facility] Misc 00 daily. Medical DX:E11.65 Branch ACCU-CHEK 2019- Yes Use to [employer] [facility] GUIDE 1-14 check ity of GLUCOSE 00:00: glucose 3X [place] MET[facility] Misc 00 daily. Medical DX:E11.65 Branch ACCU-CHEK 2019- Yes Use to [employer] [facility] GUIDE 1-14 check ity of GLUCOSE 00:00: glucose 3X [place] MET[facility] Misc 00 daily. Medical DX:E11.65 Branch ACCU-CHEK 2019- Yes Use to [facility] GUIDE 1-14 check ity of GLUCOSE 00:00: glucose 3X [place] MET[facility] Misc 00 daily. Medical DX:E11.65 Branch ACCU-CHEK 2019- Yes Use to [facility] GUIDE 1-14 check ity of GLUCOSE 00:00: glucose 3X [place] MET[facility] Misc 00 daily. Medical DX:E11.65 Branch ACCU-CHEK 2019- Yes Use to [facility] GUIDE 1-14 check ity of GLUCOSE 00:00: glucose 3X [place] MET[facility] Misc 00 daily. Medical DX:E11.65 Branch ACCU-CHEK 2019- Yes Use to [facility] GUIDE 1-14 check ity of GLUCOSE 00:00: glucose 3X [place] MET[facility] Misc 00 daily. Medical DX:E11.65 Branch ACCU-CHEK 2019- Yes Use to [facility] GUIDE 1-14 check ity of GLUCOSE 00:00: glucose 3X [place] MET[facility] Misc 00 daily. Medical DX:E11.65 Branch ACCU-CHEK 2019- Yes Use to [facility] GUIDE 1-14 check ity of GLUCOSE 00:00: glucose 3X [place] MET[facility] Misc 00 daily. Medical DX:E11.65 Branch ACCU-CHEK 2019- Yes Use to [facility] GUIDE 1-14 check ity of GLUCOSE 00:00: glucose 3X [place] METER Misc 00 daily. Medical DX:E11.65 Branch ACCU-CHEK 2019- Yes Use to [employer] [facility] GUIDE 1-14 check ity of GLUCOSE 00:00: glucose 3X [place] METER Misc 00 daily. Medical DX:E11.65 Branch ACCU-CHEK 2019- Yes Use to [employer] [facility] GUIDE 1-14 check ity of GLUCOSE 00:00: glucose 3X [place] MET[facility] Misc 00 daily. Medical DX:E11.65 Branch ACCU-CHEK 2019- Yes Use to [employer] [facility] GUIDE 1-14 check ity of GLUCOSE 00:00: glucose 3X [place] METER Misc 00 daily. Medical DX:E11.65 Branch ACCU-CHEK 2018- Yes Use to [employer] [facility] GUIDE 1-14 check ity of GLUCOSE 00:00: glucose 3X [place] METER Misc 00 daily. Medical DX:E11.65 Branch ACCU-CHEK 2018- Yes Use to [employer] [facility] GUIDE 1-14 check ity of GLUCOSE 00:00: glucose 3X [place] MET[facility] Misc 00 daily. Medical DX:E11.65 Branch ACCU-CHEK 2018- Yes Use to [employer] [facility] GUIDE 1-14 check ity of GLUCOSE 00:00: glucose 3X [place] MET[facility] Misc 00 daily. Medical DX:E11.65 Branch ACCU-CHEK 2018- Yes Use to [employer] [facility] GUIDE 1-14 check ity of GLUCOSE 00:00: glucose 3X [place] MET[facility] Misc 00 daily. Medical DX:E11.65 Branch ACCU-CHEK 2018- Yes Use to [facility] GUIDE 1-14 check ity of GLUCOSE 00:00: glucose 3X [place] MET[facility] Misc 00 daily. Medical DX:E11.65 Branch ACCU-CHEK 2019- Yes Use to [employer] [facility] GUIDE 1-14 check ity of GLUCOSE 00:00: glucose 3X [place] MET[facility] Misc 00 daily. Medical DX:E11.65 Branch ACCU-CHEK 2019- Yes Use to [employer] [facility] GUIDE 1-14 check ity of GLUCOSE 00:00: glucose 3X [place] METER Misc 00 daily. Medical DX:E11.65 Branch ACCU-CHEK 2018- Yes Use to [employer] [facility] GUIDE 1-14 check ity of GLUCOSE 00:00: glucose 3X [place] METER Misc 00 daily. Medical DX:E11.65 Branch ACCU-CHEK 2019- Yes Use to [employer] [facility] GUIDE 1-14 check ity of GLUCOSE 00:00: glucose 3X [place] MET[facility] Misc 00 daily. Medical DX:E11.65 Branch ACCU-CHEK 2019-1 Yes Use to [employer] [facility] GUIDE 1-14 check ity of GLUCOSE 00:00: glucose 3X [place] METER Misc 00 daily. Medical DX:E11.65 Branch ACCU-CHEK 2019- Yes Use to [employer] [facility] GUIDE 1-14 check ity of GLUCOSE 00:00: glucose 3X [place] METER Misc 00 daily. Medical DX:E11.65 Branch ACCU-CHEK 2019- Yes Use to [employer] [facility] GUIDE 1-14 check ity of GLUCOSE 00:00: glucose 3X [place] METER Misc 00 daily. Medical DX:E11.65 Branch ACCU-CHEK 2019- Yes Use to [employer] [facility] GUIDE 1-14 check ity of GLUCOSE 00:00: glucose 3X [place] MET[facility] Misc 00 daily. Medical DX:E11.65 Branch ACCU-CHEK 2019- Yes Use to [employer] [facility] GUIDE 1-14 check ity of GLUCOSE 00:00: glucose 3X [place] METER Misc 00 daily. Medical DX:E11.65 Branch ACCU-CHEK 2018- Yes Use to [facility] GUIDE 1-14 check ity of GLUCOSE 00:00: glucose 3X [place] METER Misc 00 daily. Medical DX:E11.65 Branch ACCU-CHEK 2019- Yes Use to [employer] [facility] GUIDE 1-14 check ity of GLUCOSE 00:00: glucose 3X [place] METER Misc 00 daily. Medical DX:E11.65 Branch Immunizations Ordered Filled Immunization Date Status Comments Sour e Immunization Name Name SARS-COV-2 COVID-19 2020-09-06 Completed [facility] PFIZER VACCINE 00:00:00 [facility] SARS-COV-2 COVID-19 2020-09-06 Completed [facility] of PFIZER VACCINE 00:00:00 [facility] SARS-COV-2 COVID-19 2020-09-06 Completed [facility] of PFIZER VACCINE 00:00:00 [facility] SARS-COV-2 COVID-19 2020-09-06 Completed [facility] of PFIZER VACCINE 00:00:00 [facility] SARS-COV-2 COVID-19 2020-09-06 Completed [facility] of PFIZER VACCINE 00:00:00 [facility] SARS-COV-2 COVID-19 2020-09-06 Completed [facility] of PFIZER VACCINE 00:00:00 [facility] SARS-COV-2 COVID-19 2020-09-06 Completed [facility]ive [facility] of PFIZER VACCINE 00:00:00 [facility] SARS-COV-2 COVID-19 2020-09-06 Completed [facility] of PFIZER VACCINE 00:00:00 [facility] SARS-COV-2 COVID-19 2020-09-06 Completed [facility] of PFIZER VACCINE 00:00:00 [facility] SARS-COV-2 COVID-19 2020-09-06 Completed [facility] of PFIZER VACCINE 00:00:00 [facility] SARS-COV-2 COVID-19 2020-09-06 Completed [facility] of PFIZER VACCINE 00:00:00 [facility] SARS-COV-2 COVID-19 2020-09-06 Completed [facility] of PFIZER VACCINE 00:00:00 [facility] SARS-COV-2 COVID-19 2020-09-06 Completed [facility] of PFIZER VACCINE 00:00:00 [facility] SARS-COV-2 COVID-19 2020-09-06 Completed [facility] of PFIZER VACCINE 00:00:00 [facility] SARS-COV-2 COVID-19 2020-09-06 Completed [facility] of PFIZER VACCINE 00:00:00 [facility] SARS-COV-2 COVID-19 2020-09-06 Completed [facility] of PFIZER VACCINE 00:00:00 [facility] SARS-COV-2 COVID-19 2020-09-06 Completed [facility] of PFIZER VACCINE 00:00:00 [facility] SARS-COV-2 COVID-19 2020-09-06 Completed [facility] of PFIZER VACCINE 00:00:00 [facility] SARS-COV-2 COVID-19 2020-09-06 Completed [facility] of PFIZER VACCINE 00:00:00 [facility] SARS-COV-2 COVID-19 2020-09-06 Completed [facility]ive [facility] of PFIZER VACCINE 00:00:00 [facility] SARS-COV-2 COVID-19 2020-09-06 Completed [facility] of PFIZER VACCINE 00:00:00 [facility] SARS-COV-2 COVID-19 2020-09-06 Completed [facility] of PFIZER VACCINE 00:00:00 [facility] SARS-COV-2 COVID-19 2020-09-06 Completed [facility] of PFIZER VACCINE 00:00:00 [facility] SARS-COV-2 COVID-19 2020-09-06 Completed [facility]ive [facility] of PFIZER VACCINE 00:00:00 [facility] SARS-COV-2 COVID-19 2020-09-06 Completed [facility] of PFIZER VACCINE 00:00:00 [facility] SARS-COV-2 COVID-19 2020-09-06 Completed [facility] of PFIZER VACCINE 00:00:00 [facility] SARS-COV-2 COVID-19 2020-09-06 Completed [facility]ive [facility] of PFIZER VACCINE 00:00:00 [facility] SARS-COV-2 COVID-19 2020-09-06 Completed [facility] of PFIZER VACCINE 00:00:00 [facility] SARS-COV-2 COVID-19 2020-09-06 Completed [facility] of PFIZER VACCINE 00:00:00 [facility] SARS-COV-2 COVID-19 2020-09-06 Completed [facility]ive [facility] of PFIZER VACCINE 00:00:00 [facility] SARS-COV-2 COVID-19 2020-09-06 Completed [facility]ive [facility] of PFIZER VACCINE 00:00:00 [facility] SARS-COV-2 COVID-19 2020-09-06 Completed [facility]ive [facility] of PFIZER VACCINE 00:00:00 [facility] SARS-COV-2 COVID-19 2020-09-06 Completed [facility]ive [facility] of PFIZER VACCINE 00:00:00 [facility] SARS-COV-2 COVID-19 2020-09-06 Completed [facility] of PFIZER VACCINE 00:00:00 [facility] SARS-COV-2 COVID-19 2020-09-06 Completed [facility] of PFIZER VACCINE 00:00:00 [facility] SARS-COV-2 COVID-19 2020-09-06 Completed [facility]ive [facility] of PFIZER VACCINE 00:00:00 [facility] SARS-COV-2 COVID-19 2020-09-06 Completed [facility] of PFIZER VACCINE 00:00:00 [facility] SARS-COV-2 COVID-19 2020-09-06 Completed [facility] of PFIZER VACCINE 00:00:00 [facility] SARS-COV-2 COVID-19 2020-09-06 Completed [facility] of PFIZER VACCINE 00:00:00 [facility] SARS-COV-2 COVID-19 2020-09-06 Completed [facility]ive [facility] of PFIZER VACCINE 00:00:00 [facility] SARS-COV-2 COVID-19 2020-09-06 Completed [facility]ive [facility] of PFIZER VACCINE 00:00:00 [facility] SARS-COV-2 COVID-19 2020-09-06 Completed [facility] of PFIZER VACCINE 00:00:00 [facility] SARS-COV-2 COVID-19 2020-09-06 Completed [facility]ive [facility] of PFIZER VACCINE 00:00:00 [facility] SARS-COV-2 COVID-19 2020-09-06 Completed [facility] of PFIZER VACCINE 00:00:00 [facility] SARS-COV-2 COVID-19 2020-09-06 Completed [facility] of PFIZER VACCINE 00:00:00 [facility] SARS-COV-2 COVID-19 2020-09-06 Completed [facility]ive [facility] of PFIZER VACCINE 00:00:00 [facility] SARS-COV-2 COVID-19 2020-09-06 Completed [facility]ive [facility] of PFIZER VACCINE 00:00:00 [facility] SARS-COV-2 COVID-19 2020-09-06 Completed [facility] of PFIZER VACCINE 00:00:00 [facility] SARS-COV-2 COVID-19 2020-09-06 Completed [facility] of PFIZER VACCINE 00:00:00 [facility] SARS-COV-2 COVID-19 2020-09-06 Completed [facility] of PFIZER VACCINE 00:00:00 [facility] SARS-COV-2 COVID-19 2020-09-06 Completed [facility] of PFIZER VACCINE 00:00:00 [facility] SARS-COV-2 COVID-19 2020-09-06 Completed [facility]ive [facility] of PFIZER VACCINE 00:00:00 [facility] SARS-COV-2 COVID-19 2020-09-06 Completed [facility] of PFIZER VACCINE 00:00:00 [facility] SARS-COV-2 COVID-19 2020-09-06 Completed [facility] of PFIZER VACCINE 00:00:00 [facility] SARS-COV-2 COVID-19 2020-09-06 Completed [facility] of PFIZER VACCINE 00:00:00 [facility] SARS-COV-2 COVID-19 2020-09-06 Completed [facility] of PFIZER VACCINE 00:00:00 [facility] SARS-COV-2 COVID-19 2020-08-16 Completed [facility] of PFIZER VACCINE 00:00:00 [facility] SARS-COV-2 COVID-19 2020-08-16 Completed [facility] of PFIZER VACCINE 00:00:00 [facility] SARS-COV-2 COVID-19 2020-08-16 Completed [facility]ive [facility] of PFIZER VACCINE 00:00:00 [facility] SARS-COV-2 COVID-19 2020-08-16 Completed [facility] of PFIZER VACCINE 00:00:00 [facility] SARS-COV-2 COVID-19 2020-08-16 Completed [facility] of PFIZER VACCINE 00:00:00 [facility] SARS-COV-2 COVID-19 2020-08-16 Completed [facility] of PFIZER VACCINE 00:00:00 [facility] SARS-COV-2 COVID-19 2020-08-16 Completed [facility]ive [facility] of PFIZER VACCINE 00:00:00 [facility] SARS-COV-2 COVID-19 2020-08-16 Completed [facility] of PFIZER VACCINE 00:00:00 [facility] SARS-COV-2 COVID-19 2020-08-16 Completed [facility] of PFIZER VACCINE 00:00:00 [facility] SARS-COV-2 COVID-19 2020-08-16 Completed [facility] of PFIZER VACCINE 00:00:00 [facility] SARS-COV-2 COVID-19 2020-08-16 Completed [facility] of PFIZER VACCINE 00:00:00 [facility] SARS-COV-2 COVID-19 2020-08-16 Completed [facility] of PFIZER VACCINE 00:00:00 [facility] SARS-COV-2 COVID-19 2020-08-16 Completed [facility] of PFIZER VACCINE 00:00:00 [facility] SARS-COV-2 COVID-19 2020-08-16 Completed [facility] of PFIZER VACCINE 00:00:00 [facility] SARS-COV-2 COVID-19 2020-08-16 Completed [facility] of PFIZER VACCINE 00:00:00 [facility] SARS-COV-2 COVID-19 2020-08-16 Completed [facility]ive [facility] of PFIZER VACCINE 00:00:00 [facility] SARS-COV-2 COVID-19 2020-08-16 Completed [facility] of PFIZER VACCINE 00:00:00 [facility] SARS-COV-2 COVID-19 2020-08-16 Completed [facility]ive [facility] of PFIZER VACCINE 00:00:00 [facility] SARS-COV-2 COVID-19 2020-08-16 Completed [facility] of PFIZER VACCINE 00:00:00 [facility] SARS-COV-2 COVID-19 2020-08-16 Completed [facility]ive [facility] of PFIZER VACCINE 00:00:00 [facility] SARS-COV-2 COVID-19 2020-08-16 Completed [facility]ive [facility] of PFIZER VACCINE 00:00:00 [facility] SARS-COV-2 COVID-19 2020-08-16 Completed [facility] of PFIZER VACCINE 00:00:00 [facility] SARS-COV-2 COVID-19 2020-08-16 Completed [facility] of PFIZER VACCINE 00:00:00 [facility] SARS-COV-2 COVID-19 2020-08-16 Completed [facility]ive [facility] of PFIZER VACCINE 00:00:00 [facility] SARS-COV-2 COVID-19 2020-08-16 Completed [facility]ive [facility] of PFIZER VACCINE 00:00:00 [facility] SARS-COV-2 COVID-19 2020-08-16 Completed [facility] of PFIZER VACCINE 00:00:00 [facility] SARS-COV-2 COVID-19 2020-08-16 Completed [facility]ive [facility] of PFIZER VACCINE 00:00:00 [facility] SARS-COV-2 COVID-19 2020-08-16 Completed [facility] of PFIZER VACCINE 00:00:00 [facility] SARS-COV-2 COVID-19 2020-08-16 Completed [facility] of PFIZER VACCINE 00:00:00 [facility] SARS-COV-2 COVID-19 2020-08-16 Completed [facility] of PFIZER VACCINE 00:00:00 [facility] SARS-COV-2 COVID-19 2020-08-16 Completed [facility] of PFIZER VACCINE 00:00:00 [facility] SARS-COV-2 COVID-19 2020-08-16 Completed [facility] of PFIZER VACCINE 00:00:00 [facility] SARS-COV-2 COVID-19 2020-08-16 Completed [facility] of PFIZER VACCINE 00:00:00 [facility] SARS-COV-2 COVID-19 2020-08-16 Completed [facility] of PFIZER VACCINE 00:00:00 [facility] SARS-COV-2 COVID-19 2020-08-16 Completed [facility] of PFIZER VACCINE 00:00:00 [facility] SARS-COV-2 COVID-19 2020-08-16 Completed [facility]ive [facility] of PFIZER VACCINE 00:00:00 [facility] SARS-COV-2 COVID-19 2020-08-16 Completed [facility] of PFIZER VACCINE 00:00:00 [facility] SARS-COV-2 COVID-19 2020-08-16 Completed [facility] of PFIZER VACCINE 00:00:00 [facility] SARS-COV-2 COVID-19 2020-08-16 Completed [facility] of PFIZER VACCINE 00:00:00 [facility] SARS-COV-2 COVID-19 2020-08-16 Completed [facility] of PFIZER VACCINE 00:00:00 [facility] SARS-COV-2 COVID-19 2020-08-16 Completed [facility] of PFIZER VACCINE 00:00:00 [facility] SARS-COV-2 COVID-19 2020-08-16 Completed [facility] of PFIZER VACCINE 00:00:00 [facility] SARS-COV-2 COVID-19 2020-08-16 Completed [facility] of PFIZER VACCINE 00:00:00 [facility] SARS-COV-2 COVID-19 2020-08-16 Completed [facility] of PFIZER VACCINE 00:00:00 [facility] SARS-COV-2 COVID-19 2020-08-16 Completed [facility] of PFIZER VACCINE 00:00:00 [facility] SARS-COV-2 COVID-19 2020-08-16 Completed [facility] of PFIZER VACCINE 00:00:00 [facility] SARS-COV-2 COVID-19 2020-08-16 Completed [facility] of PFIZER VACCINE 00:00:00 [facility] SARS-COV-2 COVID-19 2020-08-16 Completed [facility] of PFIZER VACCINE 00:00:00 [facility] SARS-COV-2 COVID-19 2020-08-16 Completed [facility] of PFIZER VACCINE 00:00:00 [facility] SARS-COV-2 COVID-19 2020-08-16 Completed [facility] of PFIZER VACCINE 00:00:00 [facility] SARS-COV-2 COVID-19 2020-08-16 Completed [facility] of PFIZER VACCINE 00:00:00 [facility] SARS-COV-2 COVID-19 2020-08-16 Completed [facility] of PFIZER VACCINE 00:00:00 [facility] SARS-COV-2 COVID-19 2020-08-16 Completed [facility] of PFIZER VACCINE 00:00:00 [facility] SARS-COV-2 COVID-19 2020-08-16 Completed [facility] of PFIZER VACCINE 00:00:00 [facility] SARS-COV-2 COVID-19 2020-08-16 Completed [facility] of PFIZER VACCINE 00:00:00 [facility] SARS-COV-2 COVID-19 2020-08-16 Completed [facility] of PFIZER VACCINE 00:00:00 [facility] Influenza Virus 2020-03-21 Completed [facility] Vaccine [facility] 00:00:00 [facility], Preserv and ABX Branc h Free 18-64 YRS Influenza Virus 2020-03-21 Completed [facility] Vaccine 00:00:00 [facility] Influenza Virus 2020-03-21 Completed [facility] Vaccine [facility] 00:00:00 [facility], Preserv and ABX Branc h Free 18-64 YRS Influenza Virus 2020-03-21 Completed [facility] Vaccine 00:00:00 [facility] Influenza Virus 2020-03-21 Completed [facility] of Vaccine [facility] 00:00:00 [facility], Preserv and ABX Branc h Free 18-64 YRS Influenza Virus 2020-03-21 Completed [facility] Vaccine 00:00:00 [facility] Influenza Virus 2020-03-21 Completed [facility] of Vaccine [facility] 00:00:00 [facility], Preserv and ABX Branc h Free 18-64 YRS Influenza Virus 2020-03-21 Completed [facility] Vaccine 00:00:00 [facility] Influenza Virus 2020-03-21 Completed [facility] of Vaccine [facility] 00:00:00 [facility], Preserv and ABX Branc h Free 18-64 YRS Influenza Virus 2020-03-21 Completed [facility] Vaccine 00:00:00 [facility] Influenza Virus 2020-03-21 Completed [facility] of Vaccine [facility] 00:00:00 [facility], Preserv and ABX Branc h Free 18-64 YRS Influenza Virus 2020-03-21 Completed [facility] of Vaccine 00:00:00 [facility] Influenza Virus 2020-03-21 Completed [facility] of Vaccine [facility] 00:00:00 [facility], Preserv and ABX Branc h Free 18-64 YRS Influenza Virus 2020-03-21 Completed [facility] Vaccine 00:00:00 [facility] Influenza Virus 2020-03-21 Completed [facility] of Vaccine [facility] 00:00:00 [facility], Preserv and ABX Branc h Free 18-64 YRS Influenza Virus 2020-03-21 Completed [facility] Vaccine 00:00:00 [facility] Influenza Virus 2020-03-21 Completed [facility] of Vaccine [facility] 00:00:00 [facility], Preserv and ABX Branc h Free 18-64 YRS Influenza Virus 2020-03-21 Completed [facility] Vaccine 00:00:00 [facility] Influenza Virus 2020-03-21 Completed [facility] of Vaccine [facility] 00:00:00 [facility], Preserv and ABX Branc h Free 18-64 YRS Influenza Virus 2020-03-21 Completed [facility] Vaccine 00:00:00 [facility] Influenza Virus 2020-03-21 Completed [facility] of Vaccine [facility] 00:00:00 [facility], Preserv and ABX Branc h Free 18-64 YRS Influenza Virus 2020-03-21 Completed [facility] Vaccine 00:00:00 [facility] Influenza Virus 2020-03-21 Completed [facility] of Vaccine [facility] 00:00:00 [facility], Preserv and ABX Branc h Free 18-64 YRS Influenza Virus 2020-03-21 Completed [facility] Vaccine 00:00:00 [facility] Influenza Virus 2020-03-21 Completed [facility] of Vaccine [facility] 00:00:00 [facility], Preserv and ABX Branc h Free 18-64 YRS Influenza Virus 2020-03-21 Completed [facility] 00:00:00 [facility] Influenza Virus 2020-03-21 Completed [facility] Recomb Quad 00:00:00 [facility], Preserv and ABX Branc h Free 18-64 YRS Influenza Virus 2020-03-21 Completed [facility] 00:00:00 [facility] Influenza Virus 2020-03-21 Completed [facility] Recomb Quad 00:00:00 [facility] IM, Preserv and ABX Branc h Free 18-64 YRS Influenza Virus 2020-03-21 Completed [facility]ine 00:00:00 [facility] Influenza Virus 2020-03-21 Completed [facility] Recomb Quad 00:00:00 [facility], Preserv and ABX Branc h Free 18-64 YRS Influenza Virus 2020-03-21 Completed [facility] Vaccine 00:00:00 [facility] Influenza Virus 2020-03-21 Completed [facility] Vaccine Recomb Quad 00:00:00 [facility], Preserv and ABX Branc h Free 18-64 YRS Influenza Virus 2020-03-21 Completed [facility] Vaccine 00:00:00 [facility] Influenza Virus 2020-03-21 Completed [facility] Vaccine Recomb Quad 00:00:00 [facility], Preserv and ABX Branc h Free 18-64 YRS Influenza Virus 2020-03-21 Completed [facility] Vaccine 00:00:00 [facility] Influenza Virus 2020-03-21 Completed [facility] Vaccine Recomb Quad 00:00:00 [facility], Preserv and ABX Branc h Free 18-64 YRS Influenza Virus 2020-03-21 Completed [facility] Vaccine 00:00:00 [facility] Influenza Virus 2020-03-21 Completed [facility] Vaccine Recomb Quad 00:00:00 [facility], Preserv and ABX Branc h Free 18-64 YRS Influenza Virus 2020-03-21 Completed [facility] Vaccine 00:00:00 [facility] Influenza Virus 2020-03-21 Completed [facility] Vaccine Recomb Quad 00:00:00 [facility], Preserv and ABX Branc h Free 18-64 YRS Influenza Virus 2020-03-21 Completed [facility] Vaccine 00:00:00 [facility] Influenza Virus 2020-03-21 Completed [facility] Vaccine Recomb Quad 00:00:00 [facility], Preserv and ABX Branc h Free 18-64 YRS Influenza Virus 2020-03-21 Completed [facility] Vaccine 00:00:00 [facility] Influenza Virus 2020-03-21 Completed [facility] Vaccine Recomb Quad 00:00:00 [facility], Preserv and ABX Branc h Free 18-64 YRS Influenza Virus 2020-03-21 Completed [facility] Vaccine 00:00:00 [facility] Influenza Virus 2020-03-21 Completed [facility] Vaccine Recomb Quad 00:00:00 [facility], Preserv and ABX Branc h Free 18-64 YRS Influenza Virus 2020-03-21 Completed [facility] Vaccine 00:00:00 [facility] Influenza Virus 2020-03-21 Completed [facility] Vaccine Recomb Quad 00:00:00 [facility], Preserv and ABX Branc h Free 18-64 YRS Influenza Virus 2020-03-21 Completed [facility] Vaccine 00:00:00 [facility] Influenza Virus 2020-03-21 Completed [facility] Vaccine Recomb Quad 00:00:00 [facility], Preserv and ABX Branc h Free 18-64 YRS Influenza Virus 2020-03-21 Completed [facility] Vaccine 00:00:00 [facility] Influenza Virus 2020-03-21 Completed [facility] Vaccine Recomb Quad 00:00:00 [facility], Preserv and ABX Branc h Free 18-64 YRS Influenza Virus 2020-03-21 Completed [facility] Vaccine 00:00:00 [facility] Influenza Virus 2020-03-21 Completed [facility] Vaccine Recomb Quad 00:00:00 [facility], Preserv and ABX Branc h Free 18-64 YRS Influenza Virus 2020-03-21 Completed [facility] Vaccine 00:00:00 [facility] Influenza Virus 2020-03-21 Completed [facility] Vaccine Recomb Quad 00:00:00 [facility], Preserv and ABX Branc h Free 18-64 YRS Influenza Virus 2020-03-21 Completed [facility] Vaccine 00:00:00 [facility] Influenza Virus 2020-03-21 Completed [facility] Vaccine Recomb Quad 00:00:00 [facility], Preserv and ABX Branc h Free 18-64 YRS Influenza Virus 2020-03-21 Completed [facility] Vaccine 00:00:00 [facility] Influenza Virus 2020-03-21 Completed [facility] Vaccine Recomb Quad 00:00:00 [facility], Preserv and ABX Branc h Free 18-64 YRS Influenza Virus 2020-03-21 Completed [facility] Vaccine 00:00:00 [facility] Influenza Virus 2020-03-21 Completed [facility] Vaccine Recomb Quad 00:00:00 [facility], Preserv and ABX Branc h Free 18-64 YRS Influenza Virus 2020-03-21 Completed [facility] Vaccine 00:00:00 [facility] Influenza Virus 2020-03-21 Completed [facility] Vaccine Recomb Quad 00:00:00 [facility], Preserv and ABX Branc h Free 18-64 YRS Influenza Virus 2020-03-21 Completed [facility] Vaccine 00:00:00 [facility] Influenza Virus 2020-03-21 Completed [facility] Vaccine Recomb Quad 00:00:00 [facility], Preserv and ABX Branc h Free 18-64 YRS Influenza Virus 2020-03-21 Completed [facility] Vaccine 00:00:00 [facility] Influenza Virus 2020-03-21 Completed [facility] Vaccine Recomb Quad 00:00:00 [facility], Preserv and ABX Branc h Free 18-64 YRS Influenza Virus 2020-03-21 Completed [facility] Vaccine 00:00:00 [facility] Influenza Virus 2020-03-21 Completed [facility] Vaccine Recomb Quad 00:00:00 [facility], Preserv and ABX Branc h Free 18-64 YRS Influenza Virus 2020-03-21 Completed [facility] Vaccine 00:00:00 [facility] Influenza Virus 2020-03-21 Completed [facility] Vaccine Recomb Quad 00:00:00 [facility], Preserv and ABX Branc h Free 18-64 YRS Influenza Virus 2020-03-21 Completed [facility] Vaccine 00:00:00 [facility] Influenza Virus 2020-03-21 Completed [facility] Vaccine Recomb Quad 00:00:00 [facility], Preserv and ABX Branc h Free 18-64 YRS Influenza Virus 2020-03-21 Completed [facility] Vaccine 00:00:00 [facility] Influenza Virus 2020-03-21 Completed [facility] Vaccine Recomb Quad 00:00:00 [facility], Preserv and ABX Branc h Free 18-64 YRS Influenza Virus 2020-03-21 Completed [facility] Vaccine 00:00:00 [facility] Influenza Virus 2020-03-21 Completed [facility] Vaccine Recomb Quad 00:00:00 [facility], Preserv and ABX Branc h Free 18-64 YRS Influenza Virus 2020-03-21 Completed [facility] Vaccine 00:00:00 [facility] Influenza Virus 2020-03-21 Completed [facility] Vaccine Recomb Quad 00:00:00 [facility], Preserv and ABX Branc h Free 18-64 YRS Influenza Virus 2020-03-21 Completed [facility] Vaccine 00:00:00 [facility] Influenza Virus 2020-03-21 Completed [facility] Vaccine Recomb Quad 00:00:00 [facility], Preserv and ABX Branc h Free 18-64 YRS Influenza Virus 2020-03-21 Completed [facility] Vaccine 00:00:00 [facility] Influenza Virus 2020-03-21 Completed [facility] Vaccine Recomb Quad 00:00:00 [facility], Preserv and ABX Branc h Free 18-64 YRS Influenza Virus 2020-03-21 Completed [facility] Vaccine 00:00:00 [facility] Influenza Virus 2020-03-21 Completed [facility] Vaccine Recomb Quad 00:00:00 [facility], Preserv and ABX Branc h Free 18-64 YRS Influenza Virus 2020-03-21 Completed [facility] Vaccine 00:00:00 [facility] Influenza Virus 2020-03-21 Completed [facility] Vaccine Recomb Quad 00:00:00 [facility], Preserv and ABX Branc h Free 18-64 YRS Influenza Virus 2020-03-21 Completed [facility] Vaccine 00:00:00 [facility] Influenza Virus 2020-03-21 Completed [facility] Vaccine Recomb Quad 00:00:00 [facility], Preserv and ABX Branc h Free 18-64 YRS Influenza Virus 2020-03-21 Completed [facility] Vaccine 00:00:00 [facility] Influenza Virus 2020-03-21 Completed [facility] Vaccine Recomb Quad 00:00:00 [facility], Preserv and ABX Branc h Free 18-64 YRS Influenza Virus 2020-03-21 Completed [facility] Vaccine 00:00:00 [facility] Influenza Virus 2020-03-21 Completed [facility] Vaccine Recomb Quad 00:00:00 [facility], Preserv and ABX Branc h Free 18-64 YRS Influenza Virus 2020-03-21 Completed [facility] Vaccine 00:00:00 [facility] Influenza Virus 2020-03-21 Completed [facility] Vaccine Recomb Quad 00:00:00 [facility], Preserv and ABX Branc h Free 18-64 YRS Influenza Virus 2020-03-21 Completed [facility] Vaccine 00:00:00 [facility] Influenza Virus 2020-03-21 Completed [facility] Vaccine Recomb Quad 00:00:00 [facility], Preserv and ABX Branc h Free 18-64 YRS Influenza Virus 2020-03-21 Completed [facility] Vaccine 00:00:00 [facility] Influenza Virus 2020-03-21 Completed [facility] Vaccine Recomb Quad 00:00:00 [facility], Preserv and ABX Branc h Free 18-64 YRS Influenza Virus 2020-03-21 Completed [facility] Vaccine 00:00:00 [facility] Influenza Virus 2020-03-21 Completed [facility] Vaccine Recomb Quad 00:00:00 [facility], Preserv and ABX Branc h Free 18-64 YRS Influenza Virus 2020-03-21 Completed [facility] Vaccine 00:00:00 [facility] Influenza Virus 2020-03-21 Completed [facility] Vaccine Recomb Quad 00:00:00 [facility], Preserv and ABX Branc h Free 18-64 YRS Influenza Virus 2020-03-21 Completed [facility] Vaccine 00:00:00 [facility] Influenza Virus 2020-03-21 Completed [facility] Vaccine Recomb Quad 00:00:00 [facility], Preserv and ABX Branc h Free 18-64 YRS Influenza Virus 2020-03-21 Completed [facility] Vaccine 00:00:00 [facility] Influenza Virus 2020-03-21 Completed [facility] Vaccine Recomb Quad 00:00:00 [facility], Preserv and ABX Branc h Free 18-64 YRS Influenza Virus 2020-03-21 Completed [facility] Vaccine 00:00:00 [facility] Influenza Virus 2020-03-21 Completed [facility] Vaccine Recomb Quad 00:00:00 [facility], Preserv and ABX Branc h Free 18-64 YRS Influenza Virus 2020-03-21 Completed [facility] Vaccine 00:00:00 [facility] TDAP 2019-04-26 Completed [facility] 00:00:00 [facility] Influenza Virus 2019-04-26 Completed [facility] Vaccine Quad .5 mL 00:00:00 [facility] 6+ MO Branch Pneumococcal 2019-04-26 Completed [facility] o f Polysaccharide, 00:00:00 [facility] PPSV23 (PNEUMOVAX) Branch Influenza Virus 2019-04-26 Completed [facility] Vaccine Quad IM 3+ 00:00:00 [facility] TDAP 2019-04-26 Completed [facility] of 00:00:00 [facility] Influenza Virus 2019-04-26 Completed [facility] Vaccine Quad .5 mL 00:00:00 [facility] 6+ MO Branch Pneumococcal 2019-04-26 Completed [facility] f Polysaccharide, 00:00:00 [facility] PPSV23 (PNEUMOVAX) Branch Influenza Virus 2019-04-26 Completed [facility] Vaccine Quad IM 3+ 00:00:00 [facility] TDAP 2019-04-26 Completed [facility] 00:00:00 [facility] Influenza Virus 2019-04-26 Completed [facility] Vaccine Quad .5 mL 00:00:00 [facility] 6+ MO Branch Pneumococcal 2019-04-26 Completed [facility] o f Polysaccharide, 00:00:00 [facility] PPSV23 (PNEUMOVAX) Branch Influenza Virus 2019-04-26 Completed [facility] Vaccine Quad IM 3+ 00:00:00 [facility] TDAP 2019-04-26 Completed [facility] of 00:00:00 [facility] Influenza Virus 2019-04-26 Completed [facility] Vaccine Quad .5 mL 00:00:00 [facility] IM 6+ MO Branch Pneumococcal 2019-04-26 Completed [facility] o f Polysaccharide, 00:00:00 [facility] PPSV23 (PNEUMOVAX) Branch Influenza Virus 2019-04-26 Completed [facility] Vaccine Quad IM 3+ 00:00:00 [facility] TDAP 2019-04-26 Completed [facility] of 00:00:00 [facility] Influenza Virus 2019-04-26 Completed [facility] Vaccine Quad .5 mL 00:00:00 [facility] 6+ MO Branch Pneumococcal 2019-04-26 Completed [facility] o f Polysaccharide, 00:00:00 [facility] PPSV23 (PNEUMOVAX) Branch Influenza Virus 2019-04-26 Completed [facility] Vaccine Quad IM 3+ 00:00:00 [facility] TDAP 2019-04-26 Completed [facility] of 00:00:00 [facility] Influenza Virus 2019-04-26 Completed [facility] Vaccine Quad .5 mL 00:00:00 [facility] 6+ MO Branch Pneumococcal 2019-04-26 Completed [facility] o f Polysaccharide, 00:00:00 [facility] PPSV23 (PNEUMOVAX) Branch Influenza Virus 2019-04-26 Completed [facility] Vaccine Quad IM 3+ 00:00:00 [facility] TDAP 2019-04-26 Completed [facility] 00:00:00 [facility] Influenza Virus 2019-04-26 Completed [facility] Vaccine Quad .5 mL 00:00:00 [facility] 6+ MO Branch Pneumococcal 2019-04-26 Completed [facility] o f Polysaccharide, 00:00:00 [facility] PPSV23 (PNEUMOVAX) Branch Influenza Virus 2019-04-26 Completed [facility] Vaccine Quad IM 3+ 00:00:00 [facility] TDAP 2019-04-26 Completed [facility] of 00:00:00 [facility] Influenza Virus 2019-04-26 Completed [facility] Vaccine Quad .5 mL 00:00:00 [facility] 6+ MO Branch Pneumococcal 2019-04-26 Completed [facility] o f Polysaccharide, 00:00:00 [facility] PPSV23 (PNEUMOVAX) Branch Influenza Virus 2019-04-26 Completed [facility] Vaccine Quad IM 3+ 00:00:00 [facility] TDAP 2019-04-26 Completed [facility] of 00:00:00 [facility] Influenza Virus 2019-04-26 Completed [facility] Vaccine Quad .5 mL 00:00:00 [facility] 6+ MO Branch Pneumococcal 2019-04-26 Completed [facility] o f Polysaccharide, 00:00:00 [facility] PPSV23 (PNEUMOVAX) Branch Influenza Virus 2019-04-26 Completed [facility] Vaccine Quad IM 3+ 00:00:00 [facility] TDAP 2019-04-26 Completed [facility] of 00:00:00 [facility] Influenza Virus 2019-04-26 Completed [facility] Vaccine Quad .5 mL 00:00:00 [facility] IM 6+ MO Branch Pneumococcal 2019-04-26 Completed [facility] o f Polysaccharide, 00:00:00 [facility] PPSV23 (PNEUMOVAX) Branch Influenza Virus 2019-04-26 Completed [facility] Vaccine Quad IM 3+ 00:00:00 [facility] TDAP 2019-04-26 Completed [facility] of 00:00:00 [facility] Influenza Virus 2019-04-26 Completed [facility] Vaccine Quad .5 mL 00:00:00 [facility] IM 6+ MO Branch Pneumococcal 2019-04-26 Completed [facility] o f Polysaccharide, 00:00:00 [facility] PPSV23 (PNEUMOVAX) Branch Influenza Virus 2019-04-26 Completed [facility] Vaccine Quad IM 3+ 00:00:00 [facility] TDAP 2019-04-26 Completed [facility] of 00:00:00 [facility] Influenza Virus 2019-04-26 Completed [facility] Vaccine Quad .5 mL 00:00:00 [facility] 6+ MO Branch Pneumococcal 2019-04-26 Completed [facility] o f Polysaccharide, 00:00:00 [facility] PPSV23 (PNEUMOVAX) Branch Influenza Virus 2019-04-26 Completed [facility] Vaccine Quad IM 3+ 00:00:00 [facility] TDAP 2019-04-26 Completed [facility] of 00:00:00 [facility] Influenza Virus 2019-04-26 Completed [facility] Vaccine Quad .5 mL 00:00:00 [facility] 6+ MO Branch Pneumococcal 2019-04-26 Completed [facility] o f Polysaccharide, 00:00:00 [facility] PPSV23 (PNEUMOVAX) Branch Influenza Virus 2019-04-26 Completed [facility] Vaccine Quad IM 3+ 00:00:00 [facility] TDAP 2019-04-26 Completed [facility] of 00:00:00 [facility] Influenza Virus 2019-04-26 Completed [facility] Vaccine Quad .5 mL 00:00:00 [facility] 6+ MO Branch Pneumococcal 2019-04-26 Completed [facility] o f Polysaccharide, 00:00:00 [facility] PPSV23 (PNEUMOVAX) Branch Influenza Virus 2019-04-26 Completed [facility] Vaccine Quad IM 3+ 00:00:00 [facility] TDAP 2019-04-26 Completed [facility] of 00:00:00 [facility] Influenza Virus 2019-04-26 Completed [facility] Vaccine Quad .5 mL 00:00:00 [facility] 6+ MO Branch Pneumococcal 2019-04-26 Completed [facility] o f Polysaccharide, 00:00:00 [facility] PPSV23 (PNEUMOVAX) Branch Influenza Virus 2019-04-26 Completed [facility] Vaccine Quad IM 3+ 00:00:00 [facility] TDAP 2019-04-26 Completed [facility] of 00:00:00 [facility] Influenza Virus 2019-04-26 Completed [facility] of Vaccine Quad .5 mL 00:00:00 [facility] 6+ MO Branch Pneumococcal 2019-04-26 Completed [facility] o f Polysaccharide, 00:00:00 [facility] PPSV23 (PNEUMOVAX) Branch Influenza Virus 2019-04-26 Completed [facility] Vaccine Quad IM 3+ 00:00:00 [facility] TDAP 2019-04-26 Completed [facility] of 00:00:00 [facility] Influenza Virus 2019-04-26 Completed [facility] of Vaccine Quad .5 mL 00:00:00 [facility] 6+ MO Branch Pneumococcal 2019-04-26 Completed [facility] o f Polysaccharide, 00:00:00 [facility] PPSV23 (PNEUMOVAX) Branch Influenza Virus 2019-04-26 Completed [facility] Vaccine Quad IM 3+ 00:00:00 [facility] TDAP 2019-04-26 Completed [facility] of 00:00:00 [facility] Influenza Virus 2019-04-26 Completed [facility] of Vaccine Quad .5 mL 00:00:00 [facility] IM 6+ MO Branch Pneumococcal 2019-04-26 Completed [facility] o f Polysaccharide, 00:00:00 [facility] PPSV23 (PNEUMOVAX) Branch Influenza Virus 2019-04-26 Completed [facility] Vaccine Quad IM 3+ 00:00:00 [facility] TDAP 2019-04-26 Completed [facility] of 00:00:00 [facility] Influenza Virus 2019-04-26 Completed [facility] of Vaccine Quad .5 mL 00:00:00 [facility] IM 6+ MO Branch Pneumococcal 2019-04-26 Completed [facility] o f Polysaccharide, 00:00:00 [facility] PPSV23 (PNEUMOVAX) Branch Influenza Virus 2019-04-26 Completed [facility] Vaccine Quad IM 3+ 00:00:00 [facility] TDAP 2019-04-26 Completed [facility] of 00:00:00 [facility] Influenza Virus 2019-04-26 Completed [facility] of Vaccine Quad .5 mL 00:00:00 [facility] 6+ MO Branch Pneumococcal 2019-04-26 Completed [facility] o f Polysaccharide, 00:00:00 [facility] PPSV23 (PNEUMOVAX) Branch Influenza Virus 2019-04-26 Completed [facility] Vaccine Quad IM 3+ 00:00:00 [facility] TDAP 2019-04-26 Completed [facility] of 00:00:00 [facility] Influenza Virus 2019-04-26 Completed [facility] of Vaccine Quad .5 mL 00:00:00 [facility] 6+ MO Branch Pneumococcal 2019-04-26 Completed [facility] o f Polysaccharide, 00:00:00 [facility] PPSV23 (PNEUMOVAX) Branch Influenza Virus 2019-04-26 Completed [facility] Vaccine Quad IM 3+ 00:00:00 [facility] TDAP 2019-04-26 Completed [facility] of 00:00:00 [facility] Influenza Virus 2019-04-26 Completed [facility] of Vaccine Quad .5 mL 00:00:00 [facility] 6+ MO Branch Pneumococcal 2019-04-26 Completed [facility] o f Polysaccharide, 00:00:00 [facility] PPSV23 (PNEUMOVAX) Branch Influenza Virus 2019-04-26 Completed [facility] Vaccine Quad IM 3+ 00:00:00 [facility] TDAP 2019-04-26 Completed [facility] of 00:00:00 [facility] Influenza Virus 2019-04-26 Completed [facility] of Vaccine Quad .5 mL 00:00:00 [facility] 6+ MO Branch Pneumococcal 2019-04-26 Completed [facility] o f Polysaccharide, 00:00:00 [facility] PPSV23 (PNEUMOVAX) Branch Influenza Virus 2019-04-26 Completed [facility] Vaccine Quad IM 3+ 00:00:00 [facility] TDAP 2019-04-26 Completed [facility] of 00:00:00 [facility] Influenza Virus 2019-04-26 Completed [facility] of Vaccine Quad .5 mL 00:00:00 [facility] 6+ MO Branch Pneumococcal 2019-04-26 Completed [facility] o f Polysaccharide, 00:00:00 [facility] PPSV23 (PNEUMOVAX) Branch Influenza Virus 2019-04-26 Completed [facility] Vaccine Quad IM 3+ 00:00:00 [facility] TDAP 2019-04-26 Completed [facility] of 00:00:00 [facility] Influenza Virus 2019-04-26 Completed [facility] of Vaccine Quad .5 mL 00:00:00 [facility] 6+ MO Branch Pneumococcal 2019-04-26 Completed [facility] o f Polysaccharide, 00:00:00 [facility] PPSV23 (PNEUMOVAX) Branch Influenza Virus 2019-04-26 Completed [facility] of Vaccine Quad IM 3+ 00:00:00 [facility] TDAP 2019-04-26 Completed [facility] of 00:00:00 [facility] Influenza Virus 2019-04-26 Completed [facility] of Vaccine Quad .5 mL 00:00:00 [facility] 6+ MO Branch Pneumococcal 2019-04-26 Completed [facility] o f Polysaccharide, 00:00:00 [facility] PPSV23 (PNEUMOVAX) Branch Influenza Virus 2019-04-26 Completed [facility] Vaccine Quad IM 3+ 00:00:00 [facility] TDAP 2019-04-26 Completed [facility] of 00:00:00 [facility] Influenza Virus 2019-04-26 Completed [facility] of Vaccine Quad .5 mL 00:00:00 [facility] 6+ MO Branch Pneumococcal 2019-04-26 Completed [facility] o f Polysaccharide, 00:00:00 [facility] PPSV23 (PNEUMOVAX) Branch Influenza Virus 2019-04-26 Completed [facility] Vaccine Quad IM 3+ 00:00:00 [facility] TDAP 2019-04-26 Completed [facility] of 00:00:00 [facility] Influenza Virus 2019-04-26 Completed [facility] of Vaccine Quad .5 mL 00:00:00 [facility] 6+ MO Branch Pneumococcal 2019-04-26 Completed [facility] o f Polysaccharide, 00:00:00 [facility] PPSV23 (PNEUMOVAX) Branch Influenza Virus 2019-04-26 Completed [facility] of Vaccine Quad IM 3+ 00:00:00 [facility] TDAP 2019-04-26 Completed [facility] of 00:00:00 [facility] Influenza Virus 2019-04-26 Completed [facility] of Vaccine Quad .5 mL 00:00:00 [facility] 6+ MO Branch Pneumococcal 2019-04-26 Completed [facility] o f Polysaccharide, 00:00:00 [facility] PPSV23 (PNEUMOVAX) Branch Influenza Virus 2019-04-26 Completed [facility] of Vaccine Quad IM 3+ 00:00:00 [facility] TDAP 2019-04-26 Completed [facility] of 00:00:00 [facility] Influenza Virus 2019-04-26 Completed [facility] of Vaccine Quad .5 mL 00:00:00 [facility] 6+ MO Branch Pneumococcal 2019-04-26 Completed [facility] o f Polysaccharide, 00:00:00 [facility] PPSV23 (PNEUMOVAX) Branch Influenza Virus 2019-04-26 Completed [facility] of Vaccine Quad IM 3+ 00:00:00 [facility] TDAP 2019-04-26 Completed [facility] of 00:00:00 [facility] Influenza Virus 2019-04-26 Completed [facility] of Vaccine Quad .5 mL 00:00:00 [facility] 6+ MO Branch Pneumococcal 2019-04-26 Completed [facility] o f Polysaccharide, 00:00:00 [facility] PPSV23 (PNEUMOVAX) Branch Influenza Virus 2019-04-26 Completed [facility] of Vaccine Quad IM 3+ 00:00:00 [facility] TDAP 2019-04-26 Completed [facility] of 00:00:00 [facility] Influenza Virus 2019-04-26 Completed [facility] of Vaccine Quad .5 mL 00:00:00 [facility] 6+ MO Branch Pneumococcal 2019-04-26 Completed [facility] o f Polysaccharide, 00:00:00 [facility] PPSV23 (PNEUMOVAX) Branch Influenza Virus 2019-04-26 Completed [facility] of Vaccine Quad IM 3+ 00:00:00 [facility] TDAP 2019-04-26 Completed [facility] of 00:00:00 [facility] Influenza Virus 2019-04-26 Completed [facility] of Vaccine Quad .5 mL 00:00:00 [facility] 6+ MO Branch Pneumococcal 2019-04-26 Completed [facility] o f Polysaccharide, 00:00:00 [facility] PPSV23 (PNEUMOVAX) Branch Influenza Virus 2019-04-26 Completed [facility] of Vaccine Quad IM 3+ 00:00:00 [facility] TDAP 2019-04-26 Completed [facility] of 00:00:00 [facility] Influenza Virus 2019-04-26 Completed [facility] of Vaccine Quad .5 mL 00:00:00 [facility] 6+ MO Branch Pneumococcal 2019-04-26 Completed [facility] o f Polysaccharide, 00:00:00 [facility] PPSV23 (PNEUMOVAX) Branch Influenza Virus 2019-04-26 Completed [facility] of Vaccine Quad IM 3+ 00:00:00 [facility] TDAP 2019-04-26 Completed [facility] of 00:00:00 [facility] Influenza Virus 2019-04-26 Completed [facility] of Vaccine Quad .5 mL 00:00:00 [facility] 6+ MO Branch Pneumococcal 2019-04-26 Completed [facility] o f Polysaccharide, 00:00:00 [place] [facility] PPSV23 (PNEUMOVAX) Branch Influenza Virus 2019-04-26 Completed [facility] Vaccine Quad IM 3+ 00:00:00 [facility] TDAP 2019-04-26 Completed [facility] of 00:00:00 [facility] Influenza Virus 2019-04-26 Completed [facility] Vaccine Quad .5 mL 00:00:00 [facility] IM 6+ MO Branch Pneumococcal 2019-04-26 Completed [facility] o f Polysaccharide, 00:00:00 [facility] PPSV23 (PNEUMOVAX) Branch Influenza Virus 2019-04-26 Completed [facility] Vaccine Quad IM 3+ 00:00:00 [facility] TDAP 2019-04-26 Completed [facility] of 00:00:00 [facility] Influenza Virus 2019-04-26 Completed [facility] Vaccine Quad .5 mL 00:00:00 [facility] 6+ MO Branch Pneumococcal 2019-04-26 Completed [facility] o f Polysaccharide, 00:00:00 [place] [facility] PPSV23 (PNEUMOVAX) Branch Influenza Virus 2019-04-26 Completed [facility] Vaccine Quad IM 3+ 00:00:00 [facility] TDAP 2019-04-26 Completed [facility] of 00:00:00 [facility] Influenza Virus 2019-04-26 Completed [facility] Vaccine Quad .5 mL 00:00:00 [facility] 6+ MO Branch Pneumococcal 2019-04-26 Completed [facility] o f Polysaccharide, 00:00:00 [facility] PPSV23 (PNEUMOVAX) Branch Influenza Virus 2019-04-26 Completed [facility] Vaccine Quad IM 3+ 00:00:00 [facility] TDAP 2019-04-26 Completed [facility] of 00:00:00 [facility] Influenza Virus 2019-04-26 Completed [facility] of Vaccine Quad .5 mL 00:00:00 [facility] IM 6+ MO Branch Pneumococcal 2019-04-26 Completed [facility] o f Polysaccharide, 00:00:00 [place] [facility] PPSV23 (PNEUMOVAX) Branch Influenza Virus 2019-04-26 Completed [facility] of Vaccine Quad IM 3+ 00:00:00 [facility] TDAP 2019-04-26 Completed [facility] of 00:00:00 [facility] Influenza Virus 2019-04-26 Completed [facility] Vaccine Quad .5 mL 00:00:00 [facility] IM 6+ MO Branch Pneumococcal 2019-04-26 Completed [facility] o f Polysaccharide, 00:00:00 [place] [facility] PPSV23 (PNEUMOVAX) Branch Influenza Virus 2019-04-26 Completed [facility] Vaccine Quad IM 3+ 00:00:00 [facility] TDAP 2019-04-26 Completed [facility] of 00:00:00 [facility] Influenza Virus 2019-04-26 Completed [facility] Vaccine Quad .5 mL 00:00:00 [facility] 6+ MO Branch Pneumococcal 2019-04-26 Completed [facility] o f Polysaccharide, 00:00:00 [facility] PPSV23 (PNEUMOVAX) Branch Influenza Virus 2019-04-26 Completed [facility] Vaccine Quad IM 3+ 00:00:00 [facility] TDAP 2019-04-26 Completed [facility] of 00:00:00 [facility] Influenza Virus 2019-04-26 Completed [facility] Vaccine Quad .5 mL 00:00:00 [facility] 6+ MO Branch Pneumococcal 2019-04-26 Completed [facility] o f Polysaccharide, 00:00:00 [place] [facility] PPSV23 (PNEUMOVAX) Branch Influenza Virus 2019-04-26 Completed [facility] of Vaccine Quad IM 3+ 00:00:00 [facility] TDAP 2019-04-26 Completed [facility] of 00:00:00 [facility] Influenza Virus 2019-04-26 Completed [facility] Vaccine Quad .5 mL 00:00:00 [facility] 6+ MO Branch Pneumococcal 2019-04-26 Completed [facility] o f Polysaccharide, 00:00:00 [facility] PPSV23 (PNEUMOVAX) Branch Influenza Virus 2019-04-26 Completed [facility] Vaccine Quad IM 3+ 00:00:00 [facility] TDAP 2019-04-26 Completed [facility] of 00:00:00 [facility] Influenza Virus 2019-04-26 Completed [facility] of Vaccine Quad .5 mL 00:00:00 [facility] IM 6+ MO Branch Pneumococcal 2019-04-26 Completed [facility] o f Polysaccharide, 00:00:00 [place] [facility] PPSV23 (PNEUMOVAX) Branch Influenza Virus 2019-04-26 Completed [facility] Vaccine Quad IM 3+ 00:00:00 [facility] TDAP 2019-04-26 Completed [facility] of 00:00:00 [facility] Influenza Virus 2019-04-26 Completed [facility] of Vaccine Quad .5 mL 00:00:00 [facility] 6+ MO Branch Pneumococcal 2019-04-26 Completed [facility] o f Polysaccharide, 00:00:00 [place] [facility] PPSV23 (PNEUMOVAX) Branch Influenza Virus 2019-04-26 Completed [facility] Vaccine Quad IM 3+ 00:00:00 [facility] TDAP 2019-04-26 Completed [facility] of 00:00:00 [facility] Influenza Virus 2019-04-26 Completed [facility] Vaccine Quad .5 mL 00:00:00 [facility] 6+ MO Branch Pneumococcal 2019-04-26 Completed [facility] o f Polysaccharide, 00:00:00 [place] [facility] PPSV23 (PNEUMOVAX) Branch Influenza Virus 2019-04-26 Completed [facility] Vaccine Quad IM 3+ 00:00:00 [facility] TDAP 2019-04-26 Completed [facility] of 00:00:00 [facility] Influenza Virus 2019-04-26 Completed [facility] Vaccine Quad .5 mL 00:00:00 [facility] 6+ MO Branch Pneumococcal 2019-04-26 Completed [facility] o f Polysaccharide, 00:00:00 [place] [facility] PPSV23 (PNEUMOVAX) Branch Influenza Virus 2019-04-26 Completed [facility] Vaccine Quad IM 3+ 00:00:00 [facility] TDAP 2019-04-26 Completed [facility] of 00:00:00 [facility] Influenza Virus 2019-04-26 Completed [facility] Vaccine Quad .5 mL 00:00:00 [facility] 6+ MO Branch Pneumococcal 2019-04-26 Completed [facility] o f Polysaccharide, 00:00:00 [place] [facility] PPSV23 (PNEUMOVAX) Branch Influenza Virus 2019-04-26 Completed [facility] Vaccine Quad IM 3+ 00:00:00 [facility] TDAP 2019-04-26 Completed [facility] of 00:00:00 [facility] Influenza Virus 2019-04-26 Completed [facility] Vaccine Quad .5 mL 00:00:00 [facility] 6+ MO Branch Pneumococcal 2019-04-26 Completed [facility] o f Polysaccharide, 00:00:00 [place] [facility] PPSV23 (PNEUMOVAX) Branch Influenza Virus 2019-04-26 Completed [facility] Vaccine Quad IM 3+ 00:00:00 [facility] TDAP 2019-04-26 Completed [facility] of 00:00:00 [facility] Influenza Virus 2019-04-26 Completed [facility] of Vaccine Quad .5 mL 00:00:00 [facility] 6+ MO Branch Pneumococcal 2019-04-26 Completed [facility] o f Polysaccharide, 00:00:00 [place] [facility] PPSV23 (PNEUMOVAX) Branch Influenza Virus 2019-04-26 Completed [facility] Vaccine Quad IM 3+ 00:00:00 [facility] TDAP 2019-04-26 Completed [facility] of 00:00:00 [facility] Influenza Virus 2019-04-26 Completed [facility] Vaccine Quad .5 mL 00:00:00 [facility] 6+ MO [facility] Pneumococcal 2019-04-26 Completed [facility] o f Polysaccharide, 00:00:00 [place] [facility] PPSV23 (PNEUMOVAX) Branch Influenza Virus 2019-04-26 Completed [facility] Vaccine Quad IM 3+ 00:00:00 [facility] TDAP 2019-04-26 Completed [facility] of 00:00:00 [facility] Influenza Virus 2019-04-26 Completed [facility] Vaccine Quad .5 mL 00:00:00 [facility] 6+ MO [facility] Pneumococcal 2019-04-26 Completed [facility] o f Polysaccharide, 00:00:00 [place] [facility] PPSV23 (PNEUMOVAX) Branch Influenza Virus 2019-04-26 Completed [facility] Vaccine Quad IM 3+ 00:00:00 [facility] TDAP 2019-04-26 Completed [facility] of 00:00:00 [facility] Influenza Virus 2019-04-26 Completed [facility] of Vaccine Quad .5 mL 00:00:00 [facility] 6+ MO Branch Pneumococcal 2019-04-26 Completed [facility] o f Polysaccharide, 00:00:00 [place] [facility] PPSV23 (PNEUMOVAX) Branch Influenza Virus 2019-04-26 Completed [facility] Vaccine Quad IM 3+ 00:00:00 [facility] TDAP 2019-04-26 Completed [facility] of 00:00:00 [facility] Influenza Virus 2019-04-26 Completed [facility] y of Vaccine Quad .5 mL 00:00:00 [facility] 6+ MO Branch Pneumococcal 2019-04-26 Completed [facility] o f Polysaccharide, 00:00:00 [place] [facility] PPSV23 (PNEUMOVAX) Branch Influenza Virus 2019-04-26 Completed [facility] Vaccine Quad IM 3+ 00:00:00 [facility] TDAP 2019-04-26 Completed [facility] of 00:00:00 [facility] Influenza Virus 2019-04-26 Completed [facility] of Vaccine Quad .5 mL 00:00:00 [facility] 6+ MO Branch Pneumococcal 2019-04-26 Completed [facility] o f Polysaccharide, 00:00:00 [place] [facility] PPSV23 (PNEUMOVAX) Branch Influenza Virus 2019-04-26 Completed [facility] Vaccine Quad IM 3+ 00:00:00 [facility] TDAP 2019-04-26 Completed [facility] of 00:00:00 [facility] Influenza Virus 2019-04-26 Completed [facility] y of Vaccine Quad .5 mL 00:00:00 [facility] IM 6+ MO Branch Pneumococcal 2019-04-26 Completed [facility] o f Polysaccharide, 00:00:00 [place] [facility] PPSV23 (PNEUMOVAX) Branch Influenza Virus 2019-04-26 Completed [facility] Vaccine Quad IM 3+ 00:00:00 [facility] Influenza Virus 2019-04-19 Completed [facility] y of Vaccine 00:00:00 [facility] Influenza Virus 2019-04-19 Completed [facility] y of Vaccine 00:00:00 [facility] Influenza Virus 2019-04-19 Completed [facility] y of Vaccine 00:00:00 [facility] Influenza Virus 2019-04-19 Completed [facility] y of Vaccine 00:00:00 [facility] Influenza Virus 2019-04-19 Completed [facility] y of Vaccine 00:00:00 [facility] Influenza Virus 2019-04-19 Completed [facility] y of Vaccine 00:00:00 [facility] Influenza Virus 2019-04-19 Completed [facility] y of Vaccine 00:00:00 [facility] Influenza Virus 2019-04-19 Completed [facility] y of Vaccine 00:00:00 [facility] Influenza Virus 2019-04-19 Completed [facility] y of Vaccine 00:00:00 [facility] Influenza Virus 2019-04-19 Completed [facility] y of Vaccine 00:00:00 [facility] Influenza Virus 2019-04-19 Completed [facility] y of Vaccine 00:00:00 [facility] Influenza Virus 2019-04-19 Completed [facility] y of Vaccine 00:00:00 [facility] Influenza Virus 2019-04-19 Completed [facility] y of Vaccine 00:00:00 [facility] Influenza Virus 2019-04-19 Completed [facility] y of Vaccine 00:00:00 [facility] Influenza Virus 2019-04-19 Completed [facility] y of Vaccine 00:00:00 [facility] Influenza Virus 2019-04-19 Completed [facility] y of Vaccine 00:00:00 [facility] Influenza Virus 2019-04-19 Completed [facility] y of Vaccine 00:00:00 [facility] Influenza Virus 2019-04-19 Completed [facility] y of Vaccine 00:00:00 [facility] Influenza Virus 2019-04-19 Completed [facility] y of Vaccine 00:00:00 [facility] Influenza Virus 2019-04-19 Completed [facility] y of Vaccine 00:00:00 [facility] Influenza Virus 2019-04-19 Completed [facility] y of Vaccine 00:00:00 [facility] Influenza Virus 2019-04-19 Completed [facility] y of Vaccine 00:00:00 [facility] Influenza Virus 2019-04-19 Completed [facility] y of Vaccine 00:00:00 [facility] Influenza Virus 2019-04-19 Completed [facility] y of Vaccine 00:00:00 [facility] Influenza Virus 2019-04-19 Completed [facility] y of Vaccine 00:00:00 [facility] Influenza Virus 2019-04-19 Completed [facility] y of Vaccine 00:00:00 [facility] Influenza Virus 2019-04-19 Completed [facility] y of Vaccine 00:00:00 [facility] Influenza Virus 2019-04-19 Completed [facility] y of Vaccine 00:00:00 [facility] Influenza Virus 2019-04-19 Completed [facility] y of Vaccine 00:00:00 [facility] Influenza Virus 2019-04-19 Completed [facility] y of Vaccine 00:00:00 [facility] Influenza Virus 2019-04-19 Completed [facility] y of Vaccine 00:00:00 [facility] Influenza Virus 2019-04-19 Completed [facility] y of Vaccine 00:00:00 [facility] Influenza Virus 2019-04-19 Completed [facility] y of Vaccine 00:00:00 [facility] Influenza Virus 2019-04-19 Completed [facility] y of Vaccine 00:00:00 [facility] Influenza Virus 2019-04-19 Completed [facility] y of Vaccine 00:00:00 [facility] Influenza Virus 2019-04-19 Completed [facility] y of Vaccine 00:00:00 [facility] Influenza Virus 2019-04-19 Completed [facility] y of Vaccine 00:00:00 [facility] Influenza Virus 2019-04-19 Completed [facility] y of Vaccine 00:00:00 [facility] Influenza Virus 2019-04-19 Completed [facility] y of Vaccine 00:00:00 [facility] Influenza Virus 2019-04-19 Completed [facility] y of Vaccine 00:00:00 [facility] Influenza Virus 2019-04-19 Completed [facility] y of Vaccine 00:00:00 [facility] Influenza Virus 2019-04-19 Completed [facility] y of Vaccine 00:00:00 [facility] Influenza Virus 2019-04-19 Completed [facility] y of Vaccine 00:00:00 [facility] Influenza Virus 2019-04-19 Completed [facility] y of Vaccine 00:00:00 [facility] Influenza Virus 2019-04-19 Completed [facility] y of Vaccine 00:00:00 [facility] Influenza Virus 2019-04-19 Completed [facility] y of Vaccine 00:00:00 [facility] Influenza Virus 2019-04-19 Completed [facility] y of Vaccine 00:00:00 [facility] Influenza Virus 2019-04-19 Completed [facility] y of Vaccine 00:00:00 [facility] Influenza Virus 2019-04-19 Completed [facility] y of Vaccine 00:00:00 [facility] Influenza Virus 2019-04-19 Completed [facility] y of Vaccine 00:00:00 [facility] Influenza Virus 2019-04-19 Completed [facility] y of Vaccine 00:00:00 [facility] Influenza Virus 2019-04-19 Completed [facility] y of Vaccine 00:00:00 [facility] Influenza Virus 2019-04-19 Completed [facility] y of Vaccine 00:00:00 [facility] Influenza Virus 2019-04-19 Completed [facility] y of Vaccine 00:00:00 [facility] Influenza Virus 2019-04-19 Completed [facility] y of Vaccine 00:00:00 [facility] Influenza Virus 2019-04-19 Completed [facility] y of Vaccine 00:00:00 [facility] Influenza Virus 2018-04-12 Completed [facility] of Vaccine Quad .5 mL 00:00:00 [facility] 6+ MO [place] Influenza Virus 2018-04-12 Completed [facility] of Vaccine Quad IM 3+ 00:00:00 [facility] Influenza Virus 2018-04-12 Completed [facility] y of Vaccine Quad .5 mL 00:00:00 [facility] 6+ MO Branch Influenza Virus 2018-04-12 Completed [facility] y of Vaccine Quad IM 3+ 00:00:00 [facility] Influenza Virus 2018-04-12 Completed [facility] y of Vaccine Quad .5 mL 00:00:00 [facility] 6+ MO [place] Influenza Virus 2018-04-12 Completed [facility] of Vaccine Quad IM 3+ 00:00:00 [facility] Influenza Virus 2018-04-12 Completed [facility] y of Vaccine Quad .5 mL 00:00:00 [facility] 6+ MO Branch Influenza Virus 2018-04-12 Completed [facility] y of Vaccine Quad IM 3+ 00:00:00 [facility] Influenza Virus 2018-04-12 Completed [facility] y of Vaccine Quad .5 mL 00:00:00 [facility] 6+ MO Branch Influenza Virus 2018-04-12 Completed [facility] y of Vaccine Quad IM 3+ 00:00:00 [facility] Influenza Virus 2018-04-12 Completed [facility] y of Vaccine Quad .5 mL 00:00:00 [facility] 6+ MO Branch Influenza Virus 2018-04-12 Completed [facility] y of Vaccine Quad IM 3+ 00:00:00 [facility] Influenza Virus 2018-04-12 Completed [facility] y of Vaccine Quad .5 mL 00:00:00 [facility] 6+ MO Branch Influenza Virus 2018-04-12 Completed [facility] y of Vaccine Quad IM 3+ 00:00:00 [facility] Influenza Virus 2018-04-12 Completed [facility] y of Vaccine Quad .5 mL 00:00:00 [facility] 6+ MO Branch Influenza Virus 2018-04-12 Completed [facility] y of Vaccine Quad IM 3+ 00:00:00 [facility] Influenza Virus 2018-04-12 Completed [facility] y of Vaccine Quad .5 mL 00:00:00 [facility] 6+ MO Branch Influenza Virus 2018-04-12 Completed [facility] y of Vaccine Quad IM 3+ 00:00:00 [facility] Influenza Virus 2018-04-12 Completed [facility] y of Vaccine Quad .5 mL 00:00:00 [facility] 6+ MO Branch Influenza Virus 2018-04-12 Completed [facility] y of Vaccine Quad IM 3+ 00:00:00 [facility] Influenza Virus 2018-04-12 Completed [facility] y of Vaccine Quad .5 mL 00:00:00 [facility] 6+ MO Branch Influenza Virus 2018-04-12 Completed [facility] of Vaccine Quad IM 3+ 00:00:00 [facility] Influenza Virus 2018-04-12 Completed [facility] y of Vaccine Quad .5 mL 00:00:00 [facility] 6+ MO Branch Influenza Virus 2018-04-12 Completed [facility] y of Vaccine Quad IM 3+ 00:00:00 [facility] Influenza Virus 2018-04-12 Completed [facility] y of Vaccine Quad .5 mL 00:00:00 [facility] 6+ MO Branch Influenza Virus 2018-04-12 Completed [facility] y of Vaccine Quad IM 3+ 00:00:00 [facility] Influenza Virus 2018-04-12 Completed [facility] y of Vaccine Quad .5 mL 00:00:00 [facility] 6+ MO Branch Influenza Virus 2018-04-12 Completed [facility] y of Vaccine Quad IM 3+ 00:00:00 [facility] Influenza Virus 2018-04-12 Completed [facility] y of Vaccine Quad .5 mL 00:00:00 [facility] 6+ MO Branch Influenza Virus 2018-04-12 Completed [facility] of Vaccine Quad IM 3+ 00:00:00 [facility] Influenza Virus 2018-04-12 Completed [facility] y of Vaccine Quad .5 mL 00:00:00 [facility] 6+ MO Branch Influenza Virus 2018-04-12 Completed [facility] y of Vaccine Quad IM 3+ 00:00:00 [facility] Influenza Virus 2018-04-12 Completed [facility] y of Vaccine Quad .5 mL 00:00:00 [facility] 6+ MO Branch Influenza Virus 2018-04-12 Completed [facility] y of Vaccine Quad IM 3+ 00:00:00 [facility] Influenza Virus 2018-04-12 Completed [facility] of Vaccine Quad .5 mL 00:00:00 [facility] 6+ MO Branch Influenza Virus 2018-04-12 Completed [facility] y of Vaccine Quad IM 3+ 00:00:00 [facility] Influenza Virus 2018-04-12 Completed [facility] of Vaccine Quad .5 mL 00:00:00 [facility] 6+ MO Branch Influenza Virus 2018-04-12 Completed [facility] of Vaccine Quad IM 3+ 00:00:00 [facility] Influenza Virus 2018-04-12 Completed [facility] of Vaccine Quad .5 mL 00:00:00 [facility] 6+ MO Branch Influenza Virus 2018-04-12 Completed [facility] of Vaccine Quad IM 3+ 00:00:00 [facility] Influenza Virus 2018-04-12 Completed [facility] of Vaccine Quad .5 mL 00:00:00 [facility] 6+ MO [facility] Influenza Virus 2018-04-12 Completed [facility] of Vaccine Quad IM 3+ 00:00:00 [facility] Influenza Virus 2018-04-12 Completed [facility] of Vaccine Quad .5 mL 00:00:00 [facility] 6+ MO Branch Influenza Virus 2018-04-12 Completed [facility] y of Vaccine Quad IM 3+ 00:00:00 [facility] Influenza Virus 2018-04-12 Completed [facility] of Vaccine Quad .5 mL 00:00:00 [facility] 6+ MO [facility] Influenza Virus 2018-04-12 Completed [facility] of Vaccine Quad IM 3+ 00:00:00 [facility] Influenza Virus 2018-04-12 Completed [facility] of Vaccine Quad .5 mL 00:00:00 [facility] 6+ MO [facility] Influenza Virus 2018-04-12 Completed [facility] of Vaccine Quad IM 3+ 00:00:00 [facility] Influenza Virus 2018-04-12 Completed [facility] of Vaccine Quad .5 mL 00:00:00 [facility] 6+ MO Branch Influenza Virus 2018-04-12 Completed [facility] of Vaccine Quad IM 3+ 00:00:00 [facility] Influenza Virus 2018-04-12 Completed [facility] of Vaccine Quad .5 mL 00:00:00 [facility] 6+ MO Branch Influenza Virus 2018-04-12 Completed [facility] of Vaccine Quad IM 3+ 00:00:00 [facility] Influenza Virus 2018-04-12 Completed [facility] of Vaccine Quad .5 mL 00:00:00 [facility] 6+ MO [facility] Influenza Virus 2018-04-12 Completed [facility] of Vaccine Quad IM 3+ 00:00:00 [facility] Influenza Virus 2018-04-12 Completed [facility] of Vaccine Quad .5 mL 00:00:00 [facility] 6+ MO Branch Influenza Virus 2018-04-12 Completed [facility] of Vaccine Quad IM 3+ 00:00:00 [facility] Influenza Virus 2018-04-12 Completed [facility] of Vaccine Quad .5 mL 00:00:00 [facility] 6+ MO Branch Influenza Virus 2018-04-12 Completed [facility] of Vaccine Quad IM 3+ 00:00:00 [facility] Influenza Virus 2018-04-12 Completed [facility] of Vaccine Quad .5 mL 00:00:00 [facility] 6+ MO Branch Influenza Virus 2018-04-12 Completed [facility] of Vaccine Quad IM 3+ 00:00:00 [facility] Influenza Virus 2018-04-12 Completed [facility] of Vaccine Quad .5 mL 00:00:00 [facility] 6+ MO Branch Influenza Virus 2018-04-12 Completed [facility] of Vaccine Quad IM 3+ 00:00:00 [facility] Influenza Virus 2018-04-12 Completed [facility] of Vaccine Quad .5 mL 00:00:00 [facility] 6+ MO Branch Influenza Virus 2018-04-12 Completed [facility] of Vaccine Quad IM 3+ 00:00:00 [facility] Influenza Virus 2018-04-12 Completed [facility] of Vaccine Quad .5 mL 00:00:00 [facility] 6+ MO Branch Influenza Virus 2018-04-12 Completed [facility] of Vaccine Quad IM 3+ 00:00:00 [facility] Influenza Virus 2018-04-12 Completed [facility] of Vaccine Quad .5 mL 00:00:00 [facility] 6+ MO Branch Influenza Virus 2018-04-12 Completed [facility] of Vaccine Quad IM 3+ 00:00:00 [facility] Influenza Virus 2018-04-12 Completed [facility] of Vaccine Quad .5 mL 00:00:00 [facility] 6+ MO Branch Influenza Virus 2018-04-12 Completed [facility] of Vaccine Quad IM 3+ 00:00:00 [facility] Influenza Virus 2018-04-12 Completed [facility] of Vaccine Quad .5 mL 00:00:00 [facility] 6+ MO Branch Influenza Virus 2018-04-12 Completed [facility] of Vaccine Quad IM 3+ 00:00:00 [facility] Influenza Virus 2018-04-12 Completed [facility] Vaccine Quad .5 mL 00:00:00 [facility] 6+ MO [facility] Influenza Virus 2018-04-12 Completed [facility] of Vaccine Quad IM 3+ 00:00:00 [facility] Influenza Virus 2018-04-12 Completed [facility] of Vaccine Quad .5 mL 00:00:00 [facility] 6+ MO Branch Influenza Virus 2018-04-12 Completed [facility] of Vaccine Quad IM 3+ 00:00:00 [facility] Influenza Virus 2018-04-12 Completed [facility] of Vaccine Quad .5 mL 00:00:00 [facility] 6+ MO [facility] Influenza Virus 2018-04-12 Completed [facility] Vaccine Quad IM 3+ 00:00:00 [facility] Influenza Virus 2018-04-12 Completed [facility] Vaccine Quad .5 mL 00:00:00 [facility] 6+ MO Branch Influenza Virus 2018-04-12 Completed [facility] of Vaccine Quad IM 3+ 00:00:00 [facility] Influenza Virus 2018-04-12 Completed [facility] of Vaccine Quad .5 mL 00:00:00 [facility] 6+ MO [facility] Influenza Virus 2018-04-12 Completed [facility] Vaccine Quad IM 3+ 00:00:00 [facility] Influenza Virus 2018-04-12 Completed [facility] Vaccine Quad .5 mL 00:00:00 [facility] 6+ MO [facility] Influenza Virus 2018-04-12 Completed [facility] of Vaccine Quad IM 3+ 00:00:00 [facility] Influenza Virus 2018-04-12 Completed [facility] Vaccine Quad .5 mL 00:00:00 [facility] 6+ MO [facility] Influenza Virus 2018-04-12 Completed [facility] of Vaccine Quad IM 3+ 00:00:00 [facility] Influenza Virus 2018-04-12 Completed [facility] of Vaccine Quad .5 mL 00:00:00 [facility] 6+ MO [facility] Influenza Virus 2018-04-12 Completed [facility] Vaccine Quad IM 3+ 00:00:00 [facility] Influenza Virus 2018-04-12 Completed [facility] Vaccine Quad .5 mL 00:00:00 [facility] 6[facility] MO [facility] Influenza Virus 2018-04-12 Completed [facility] y of Vaccine Quad IM 3+ 00:00:00 [facility] Influenza Virus 2018-04-12 Completed Universit y of Vaccine Quad .5 mL 00:00:00 [facility] IM 6+ MO Branch Influenza Virus 2018-04-12 Completed Universit y of Vaccine Quad IM 3+ 00:00:00 [facility] Influenza Virus 2018-04-12 Completed Universit y of Vaccine Quad .5 mL 00:00:00 [facility] IM 6+ MO Branch Influenza Virus 2018-04-12 Completed Universit y of Vaccine Quad IM 3+ 00:00:00 [facility] Influenza Virus 2018-04-12 Completed Universit y of Vaccine Quad .5 mL 00:00:00 [facility] IM 6+ [place] Branch Influenza Virus 2018-04-12 Completed Universit y of Vaccine Quad IM 3+ 00:00:00 [facility] Influenza Virus 2018-04-12 Completed Universit y of Vaccine Quad .5 mL 00:00:00 [facility] IM 6+ [place] Branch Influenza Virus 2018-04-12 Completed Universit y of Vaccine Quad IM 3+ 00:00:00 [facility] Influenza Virus 2018-04-12 Completed Universit y of Vaccine Quad .5 mL 00:00:00 [facility] IM 6+ MO Branch Influenza Virus 2018-04-12 Completed Universit y of Vaccine Quad IM 3+ 00:00:00 [facility] Influenza Virus 2018-04-12 Completed Universit y of Vaccine Quad .5 mL 00:00:00 [facility] IM 6+ [place] Branch Influenza Virus 2018-04-12 Completed Universit y of Vaccine Quad IM 3+ 00:00:00 [facility] Influenza Virus 2018-04-12 Completed Universit y of Vaccine Quad .5 mL 00:00:00 [facility] IM 6+ MO Branch Influenza Virus 2018-04-12 Completed Universit y of Vaccine Quad IM 3+ 00:00:00 [facility] Influenza Virus 2018-04-12 Completed Universit y of Vaccine Quad .5 mL 00:00:00 [facility] IM 6+ MO Branch Influenza Virus 2018-04-12 Completed Universit y of Vaccine Quad IM 3+ 00:00:00 [facility] Branch Influenza Virus 2018-04-12 Completed Universit y of Vaccine Quad .5 mL 00:00:00 [facility] IM 6+ MO Branch Influenza Virus 2018-04-12 Completed Universit y of Vaccine Quad IM 3+ 00:00:00 [facility] Branch Influenza Virus 2018-04-12 Completed Universit y of Vaccine Quad .5 mL 00:00:00 [facility] IM 6+ [place] Branch Influenza Virus 2018-04-12 Completed Universit y of Vaccine Quad IM 3+ 00:00:00 [facility] Branch Influenza Virus 2018-04-12 Completed Universit y of Vaccine Quad .5 mL 00:00:00 [facility] IM 6+ MO Branch Influenza Virus 2018-04-12 Completed Universit y of Vaccine Quad IM 3+ 00:00:00 [facility] Vital Signs Vital Name Observation Time Observation Value Comments Source Systolic blood 2022-10-17 18:01:00 150 mm[Hg] Univer sity of pressure [facility] Diastolic blood 2022-10-17 18:01:00 78 mm[Hg] Unive rsity of [facility] Heart rate 2022-10-17 18:01:00 82 /min [facility] Body temperature 2022-10-17 18:00:00 36.72 Anisa [facility] Respiratory rate 2022-10-17 18:00:00 22 /min [facility] Body height 2022-10-17 18:00:00 193 cm [facility] Body weight 2022-10-17 18:00:00 147.374 kg [facility] BMI 2022-10-17 18:00:00 39.55 kg/m2 [facility] Oxygen saturation in 2022-10-17 18:00:00 98 /min [facility] Arterial blood by [facility] Pulse oximetry Branch Systolic blood 2022-04-20 13:28:00 161 mm[Hg] Univer sity of pressure [facility] Diastolic blood 2022-04-20 13:28:00 92 mm[Hg] Unive rsity of pressure [facility] Heart rate 2022-04-20 13:27:00 67 /min [facility] Body weight 2022-04-20 13:27:00 152.998 kg [facility] BMI 2022-04-20 13:27:00 41.06 kg/m2 [facility] Oxygen saturation in 2022-04-20 13:27:00 97 /min [facility] Arterial blood by [facility] Pulse oximetry Branch Procedures Procedure Date / Time Performing Clinician Source Performed [facility] PATIENT FINANCIAL 2022-10-17 17:54:11 [facility] [place] INSURANCE CORRESPONDENCE 2022-08-19 06:01:00 Doctor Unassigned, [facility] Name [facility] EXTERNAL PROVIDER RECORDS 2022-06-10 06:01:00 Doctor Unassigned, [facility] Name [facility] POCT HEMOGLOBIN A1C TEST 2022-04-20 13:28:00 Neelima Escudero [facility] DIABETES TESTING REPORTS 2022-04-20 05:01:00 Doctor Unassigned, [facility] Name [facility] EXTERNAL PROVIDER RECORDS 2021-12-29 05:01:00 Doctor Unassigned, [facility] Name [facility] Plan of Care Planned Activity Planned Date Details Comments Source Future Scheduled 2022-12-04 INFLUENZA VACCINE [facility] 05:55:04 [code = INFLUENZA VACCINE] Future Scheduled 2022-12-04 [facility] Test 05:55:04 malignant neoplasm of colon (procedure) [code = 016139036] Future Scheduled 2022-12-04 [facility] Test 05:55:04 malignant neoplasm of colon (procedure) [code = 315964069] Future Scheduled 2022-12-04 [facility]ening [facility] Test 05:55:04 malignant neoplasm of colon (procedure) [code = 719039433] Future Scheduled 2022-12-04 SHINGLES VACCINES ([facility] 05:55:04 of 2) [code = SHINGLES VACCINES (1 of 2)] Future Scheduled 2022-12-04 [facility]ZA VACCINE [facility] Test 05:55:04 [code = INFLUENZA VACCINE] Future Scheduled 2022-12-04 [facility] Test 05:55:04 malignant neoplasm of colon (procedure) [code = 937116372] Future Scheduled 2022-12-04 [facility]ening [facility] Test 05:55:04 malignant neoplasm of colon (procedure) [code = 886525913] Future Scheduled 2022-12-04 [facility]ening [facility] Test 05:55:04 malignant neoplasm of colon (procedure) [code = 108652187] Future Scheduled 2022-12-04 COVID[facility]19 [facility]04 [code = COVID-19 VACCINE (#1)] Future Scheduled 2022-12-04 [facility]ening [facility] Test 05:55:04 malignant neoplasm of colon (procedure) [code = 048821367] Future Scheduled 2022-12-04 [facility] Test 05:55:04 malignant neoplasm of colon (procedure) [code = 482922931] Future Scheduled 2022-12-04 COVID[facility]19 [facility] 05:55:04 [code = COVID-19 VACCINE (#1)] Future Scheduled 2022-12-04 [facility] Test 05:55:04 malignant neoplasm of colon (procedure) [code = 360930787] Future Scheduled 2022-12-04 [facility] Test 05:55:04 malignant neoplasm of colon (procedure) [code = 250516703] Future Scheduled 2022-12-04 SHINGLES VACCINES (1 Met [facility] Test 05:55:04 of 2) [code = SHINGLES VACCINES (1 of 2)] Future Scheduled 2022-06-05 COVID-19 VACCINE (#1) [facility] Test 06:33:18 [code = COVID-19 VACCINE (#1)] Future Scheduled 2022-06-05 COLONOSCOPY SCREENING [facility] Test 06:33:18 [code = COLONOSCOPY SCREENING] Future Scheduled 2022-06-05 SHINGLES VACCINES (1 [facility] Test 06:33:18 of 2) [code = SHINGLES VACCINES (1 of 2)] Future Scheduled 2022-06-05 INFLUENZA VACCINE [facility] Test 06:33:18 [code = INFLUENZA VACCINE] Encounters Start End Encounter Admission Attending Care Care Encounter Source Date/Time Date/Time Type Type Clinicians Facility Department ID 2021-04-20 Outpatient R NOEMÍ [facility] [place] [id number] Univers 18:32:59 MIRNA Tripathi [facility] 2021-04-20 Inpatient Juan [facility]IA [facility] [id number] Univers 11:47:37 LUAN [facility] 2022-11-23 2022-11-23 [facility] 1.2.840.114 [id number] Univers 00:00:00 00:00:00 [place] HEALTH 350.1.13.10 it y of [place] 4.2.7.2.686 Cory as BRYAN?BLEA [phone] [address] MEDICAL OFFICE [facility] 2022-11-21 2022-11-21 [facility] 1.2.840.114 [id number] Univers 00:00:00 [facility]:00:00 [facility] 350.1.13.10 [place] [id number] [facility] AND [address] DIABETES CLINIC 2022-11-09 2022-11-09 Outpatient R SIDRA [facility] [id number] Univers 12:40:00 12:40:00 [facility]22-11-03 2022-11-03 [facility] 1.2.840.114 [id number] Univers 00:00:00 00:00:00 [facility] HEALTH 350.1.13.10 it y of [place] 4.2.7.2.686 Cory as BRYAN?BLEA [id number] [address] MEDICAL OFFICE [facility] 2022-11-03 2022-11-03 Telephone [facility] 1.2.189.011 [id number] Univers 00:00:00 00:00:00 [place] HEALTH 350.1.13.10 it y of [place] 4.2.7.2.686 Cory as BRYAN?BLEA [id number] [address] MEDICAL OFFICE BUILDING 2022-10-17 2022-10-17 Outpatient R VIBHA [facility] [id number] Univers 13:00:00 13:31:43 [facility] 2022-10-17 2022-10-17 Urgent Vibha, Norris B [facility] 1.2.840.1 14 [id number] Univers 13:00:00 13:31:43 Care Unknown, [facility] 350.1.13.10 ity of [place] 4.2.7.2.686 Cory as BRYAN?BLEA [id number] [facility] [address] MEDICAL OFFICE BUILDING 2022-10-17 2022-10-17 Orders Doctor LETHA 1.2.840.114 [id number] Univers 00:00:00 00:00:00 Only Unassigned, CORKY 350.1.13.10 [place]y [place] [facility] 4.2.7.2.686 Cory as [id number] [address] 2022-10-17 2022-10-17 Refill Kota AKSINA 1.2.840.114 [id number] Univers 00:00:00 00:00:00 [facility] 350.1.13.10 it y of [place] 4.2.7.2.686 Cory as BRYAN?BLEA [phone] [facility] [address] MEDICAL OFFICE [facility] 2022-10-17 2022-10-17 Patient Kota AKSINA 1.2.840.114 [id number] Univers 00:00:00 00:00:00 Secure Msg [facility] 350.1.13.10 ity of [place] 4.2.7.2.686 Cory as BRYAN?BLEA [phone] [facility] [address] MEDICAL OFFICE [facility] 2022-10-04 2022-10-04 Outpatient R UNKNOWN, [facility] [id number] Univers 13:40:00 13:40:00 ATTENDING ity of [facility] 2022-09-19 2022-09-19 Refill Kota AKSINA 1.2.840.114 [id number] Univers 00:00:00 00:00:00 [facility].13.10 [facility] [place] [id number] [facility] AND [employer] [address] DI[facility]ES CLINIC 2022-09-13 2022-09-13 Refill [facility] 1.2.840.114 [id number] Univers 00:00:00 00:00:00 [facility] HEALTH 350.1.13.10 it y of [place] 4.2.7.2.686 Cory as BRYAN?BLEA [phone] [address] MEDICAL OFFICE BUILDING 2022-09-08 2022-09-08 [facility]ill [facility] 1.2.840.114 [id number] Univers 00:00:00 00:00:00 [facility] MULTISPEC 350.1.13.10 it[place] [id number] [facility] AND [address] DIABETES CLINIC 2022-08-25 2022-08-25 Telephone [facility] 1.2.927.782 [id number] Univers 00:00:00 00:00:00 [facility] 350.1.13.10 [place] [id number] [address] DIABETES CLINIC 2022-08-19 2022-08-19 Telephone [facility] 1.2.761.941 [id number] Univers 00:00:00 00:00:00 [facility] 350.1.13.10 [place] [id number] [address] DIABETES CLINIC 2022-08-19 2022-08-19 Orders Doctor LETHA 1.2.840.114 [id number] Univers 00:00:00 00:00:00 Only Unassigned, CORKY 350.1.13.10 ity of [place] [facility] 4.2.7.2.686 Cory as [id number] [address] 2022-08-17 2022-08-17 Patient [facility] 1.2.840.114 [id number] Univers 00:00:00 00:00:00 Secure Ms [facility] HEALTH 350.1.13.10 ity of [place] 4.2.7.2.686 Cory as BRYAN?BLEA [id number] [address] MEDICAL OFFICE BUILDING 2022-08-152022-08-15 Refill Kota [facility] 1.2.840.114 [id number] Univers 00:00:00 00:00:00 [facility] 350.1.13.10 [place] [id number] [address] DIABETES CLINIC 2022-08-03 2022-08-03 Outpatient R [facility], [facility] [id number] Univers 10:40:00 10:40:00 ATTENDING ity of [facility] 2022-07-18 2022-07-18 Refill Kota [facility] 1.2.840.114 [id number] Univers 00:00:00 00:00:00 [employer] 350.1.13.10 it [facility] 4.2.7.2.686 [place] as BRYAN?BLEA [phone] [address] MEDICAL OFFICE BUILDING 2022-07-18 2022-07-18 Patient Kota AKSINA 1.2.840.114 [id number] Univers 00:00:00 00:00:00 Secure Msg [facility] 350.1.13.10 ity of [place] 4.2.7.2.686 Cory as BRYAN?BLEA [id number] [address] MEDICAL OFFICE BUILDING 2022-07-12 2022-07-12 Patient Kota AKSINA 1.2.840.114 [id number] Univers 00:00:00 00:00:00 Secure Msg [facility] 350.1.13.10 [place] [id number] [address] DIABETES CLINIC 2022-06-10 2022-06-10 Orders Doctor LETHA 1.2.840.114 [id number] Univers 00:00:00 00:00:00 Only Unassigned, CORKY 350.1.13.10 ity of [facility] 4.2.7.2.686 Cory as [phone] [address] 2022-06-08 2022-06-08 Refill Kota AKSINA 1.2.840.114 [id number] Univers 00:00:00 00:00:00 [facility] HEALTH 350.1.13.10 it y of [place] 4.2.7.2.686 Cory as BRYAN?BLEA [phone] Nh dical KN [address] MEDICAL OFFICE BUILDING 2022-06-08 2022-06-08 Telephone Escudero, [facility] 1.2.616.585 [id number] Univers 00:00:00 00:00:00 [facility] HEALTH 350.1.13.10 it y of [place] 4.2.7.2.686 Cory as BRYAN?BLEA [phone] [facility] [address] MEDICAL OFFICE BUILDING 2022-06-08 2022-06-08 Refill Escudero, [facility] 1.2.840.114 [id number] Univers 00:00:00 00:00:00 [facility] 350.1.13.10 it y of [place] 4.2.7.2.686 Cory as BRYAN?BLEA [id number] [address] MEDICAL OFFICE BUILDING 2022-05-30 2022-05-30 Refill Escudero, [facility] 1.2.840.114 [id number] Univers 00:00:00 00:00:00 [facility] HEALTH 350.1.13.10 it y of [place] 4.2.7.2.686 Cory as BRYAN?BLEA [id number] [address] MEDICAL OFFICE BUILDING 2022-05-27 2022-05-27 Refill Escudero, [facility] 1.2.840.114 [id number] Univers 00:00:00 00:00:00 [facility] HEALTH 350.1.13.10 it y of [place] 4.2.7.2.686 Cory as BRYAN?BLEA [id number] [address] MEDICAL OFFICE BUILDING 2022-05-27 2022-05-27 Telephone Escudero, [facility] 1.2.599.561 [id number] Univers 00:00:00 00:00:00 [facility] HEALTH 350.1.13.10 it y of [place] 4.2.7.2.686 Cory as BRYAN?BLEA [id number] [address] MEDICAL OFFICE BUILDING 2022-05-25 2022-05-25 Telephone Escudero, [facility] 1.2.384.315 [id number] Univers 00:00:00 00:00:00 [facility] HEALTH 350.1.13.10 it y of [place] 4.2.7.2.686 Cory as BRYAN?BLEA [id number] [address] MEDICAL OFFICE BUILDING 2022-04-20 2022-04-20 Outpatient R KOTA [facility] [id number] Univers 08:30:00 09:14:23 WENTONG ity of [facility] 2022-04-20 2022-04-20 Office [facility] 1.2.840.114 [id number] Univers 08:30:00 09:14:23 Visit [facility] 350.1.13.10 it [facility] 4.2.7.2.686 Cory as BRYAN?BLEA [phone] [address] MEDICAL OFFICE BUILDING 2022-04-20 2022-04-20 Orders Doctor LETHA 1.2.840.114 [id number] Univers 00:00:00 00:00:00 Only Unassigned, CORKY 350.1.13.10 ity of [place] [facility] 4.2.7.2.686 Cory as [id number] [place] [address] Branch 2022-04-17 2022-04-17 [facility] 1.2.840.114 [id number] Univers 00:00:00 00:00:00 [facility] MULTISPEC 350.1.13.10 [facility] 4.2.7.2.[place] [id number] [facility] AND [address] DIABETES CLINIC 2022-03-24 2022-03-24 Refroland Escudero [facility] 1.2.840.114 [id number] Univers 00:00:00 00:00:00 [facility] HEALTH 350.1.13.10 it y of [place] 4.2.7.2.686 Cory as BRYAN?BLEA [id number] [address] MEDICAL OFFICE BUILDING 2022-03-20 2022-03-20 Refill Kota [facility] 1.2.840.114 [id number] Univers 00:00:00 00:00:00 [facility] HEALTH 350.1.13.10 it y of [place] 4.2.7.2.686 Cory as BRYAN?BLEA [id number] [address] MEDICAL OFFICE [facility] 2022-03-14 2022-03-14 Refill Kota, [facility] 1.2.840.114 [id number] Univers 00:00:00 00:00:00 [place] MULTISPEC 350.1.13.10 it[place]2.[place] [id number] [address] DIABETES CLINIC 2022-03-14 2022-03-14 Patient Escudero, [facility] 1.2.840.114 [id number] Univers 00:00:00 00:00:00 Secure Msg [place] MULTISPEC 350.1.13.10 it[place] of [place].2.[place] [id number] [address] DIABETES CLINIC 2022-03-01 2022-03-01 Patient Kota, [facility] 1.2.840.114 [id number] Univers 00:00:00 00:00:00 Secure Msg [place] HEALTH 350.1.13.10 ity of [place] 4.2.7.2.686 Cory as BRYAN?BLEA [id number] [address] OFFICE [facility] 2022-01-13 2022-01-13 Patient Kota, [facility] 1.2.840.114 [id number] Univers 00:00:00 00:00:00 Secure Msg [place] MULTISPEC 350.1.13.10 [place].2.[place] [id number] [address] DIABETES CLINIC 2022-01-13 2022-01-13 Refill Kota, [facility] 1.2.840.114 [id number] Univers 00:00:00 00:00:00 [place] HEALTH 350.1.13.10 it y of [place] 4.2.7.2.686 Cory as BRYAN?BLEA [phone] [address] OFFICE [facility] 2021-12-29 2021-12-29 Orders Doctor MONAE 1.2.840.114 [id number] Univers 00:00:00 00:00:00 Only Unassigned, COKRY 350.1.13.10 ity of [place] [facility] 4.2.7.2.686 Cory as [phone] [place] [address] Branch 2021-12-23 2021-12-23 [facility] 1.2.840.114 [id number] Univers 00:00:00 00:00:00 Secure Msg [facility] HEALTH 350.1.13.10 ity of [place] 4.2.7.2.686 Cory as BRYAN?BLEA [id number] [address] MEDICAL OFFICE BUILDING 2021-12-15 2021-12-15 Patient [facility] 1.2.840.114 [id number] Univers 00:00:00 00:00:00 [facility] 350.1.13.10 [facility]y of [facility] 4.2.7.2.[place] [id number] [address] DIABETES CLINIC 2021-12-13 2021-12-13 [facility]ill [facility] 1.2.840.114 [id number] Univers 00:00:00 00:00:00 [facility] HEALTH 350.1.13.10 it y of [place] 4.2.7.2.686 Cory as BRYAN?BLEA [id number] [address] MEDICAL OFFICE BUILDING 2021-12-09 2021-12-09 Office [facility] 1.2.840.114 [id number] Univers 15:00:00 15:24:18 Visit [facility] 350.1.13.10 it y of [place] 4.2.7.2.686 Cory as BRYAN?BLEA [phone] [address] MEDICAL OFFICE BUILDING 2021-12-09 2021-12-09 Outpatient R KOTA [facility] [id number] Univers 15:00:00 15:24:18 [facility] 2021-12-09 2021-12-09 [facility] [id number] Univers 15:00:00 15:00:00 [facility] 2021-12-08 2021-12-08 Telephone [facility] 1.2.034.191 [id number] Univers 00:00:00 00:00:00 [place] HEALTH 350.1.13.10 it y of [place] 4.2.7.2.686 Cory as BRYAN?BLEA [id number] [address] OFFICE [facility] 2021-11-04 2021-11-04 Patient Escudero, [facility] 1.2.840.114 [id number] Univers 00:00:00 00:00:00 Secure Msg [place] HEALTH 350.1.13.10 ity of [place] 4.2.7.2.686 Cory as BRYAN?BLEA [id number] [address] 2021-11-04 2021-11-04 Telephone [facility] 1.2.858.038 [id number] Univers 00:00:00 00:00:00 [place] HEALTH 350.1.13.10 it y of [place] 4.2.7.2.686 Cory as BRYAN?BLEA [id number] [address] OFFICE [facility] 2021-10-20 2021-10-20 Patient Kota, [facility] 1.2.840.114 [id number] Univers 00:00:00 00:00:00 Secure Msg [facility] MULTISPEC 350.1.13.10 [place] of [place] [id number] [facility] AND [address] DIABETES CLINIC 2021-10-19 2021-10-19 Refill Kota [facility] 1.2.840.114 [id number] Univers 00:00:00 00:00:00 [place] HEALTH 350.1.13.10 it y of [place] 4.2.7.2.686 Cory as BRYAN?BLEA [id number] [address] OFFICE [facility] 2021-10-13 2021-10-13 Patient Kota, [facility] 1.2.840.114 [id number] Univers 00:00:00 00:00:00 Secure Msg [place] MULTISPEC 350.1.13.10 [place] [id number] [address] DIABETES CLINIC 2021-10-05 2021-10-05 Patient Kota [facility] 1.2.840.114 [id number] Univers 00:00:00 00:00:00 Secure Msg [facility] MULTISPEC 350.1.13.10 [place] [id number] [address] DIABETES CLINIC 2021-09-20 2021-09-20 Refill Kota [facility] 1.2.840.114 [id number] Univers 00:00:00 00:00:00 [facility] 350.1.13.[address] [facility] 4.2.7.2.[place] [id number] [address] 2021-09-16 2021-09-16 Patient Kota [facility] 1.2.840.114 [id number] Univers 00:00:00 00:00:00 Secure Msg [facility] MULTISPEC 350.1.13.10 [place] [id number] [address] DIABETES CLINIC 2021-09-15 2021-09-15 Outpatient R KOTA [facility] [id number] Univers 16:00:00 16:48:56 [facility] 2021-09-15 2021-09-15 [facility] 1.2.840.114 [id number] Univers 16:00:00 16:48:56 Visit [facility] 350.1.13.10 it y of [place] 4.2.7.2.686 Cory as BRYAN?BLEA [phone] Nh dic[address] MEDICAL OFFICE BUILDING 2021-09-15 2021-09-15 Outpatient R KOTA [facility] [id number] Univers 16:00:00 16:00:00 [facility] 2021-09-03 2021-09-03 [facility] 1.2.840.114 [id number] Univers 00:00:00 00:00:00 [facility] 350.1.13.10 i ty of [place]2.7.2.[place] [phone] Nh dickenneth [facility] [address] [facility] 2021-08-01 2021-08-01 Refill Kota AKSINA 1.2.840.114 [id number] Univers 00:00:00 00:00:00 Chrispaterson MULTISPEC 350.1.13.10 ity of [facility] [place]2.7.2.[place] [phone] [facility] [employer] [employer] [address] [facility] 2021-06-04 2021-06-04 Orders Doctor LETHA 1.2.840.114 [id number] Univers 00:00:00 00:00:00 Only Unassigned, CORKY 350.1.13.10 ity of [place] [facility] 4.2.7.2.686 Cory as [phone] [facility] [address] 2021-05-22 2021-05-22 Cesario De Anda [facility] [id number] [id number] Univers 00:00:00 00:00:00 Sol HEALTH 350.1.13.10 it y of [place] 4.2.7.2.686 Cory as BRYAN?BLEA [phone] [address] MEDICAL OFFICE [facility] 2021-05-21 2021-05-21 Urgent Sol De Anda [facility] 1.2.840.114 [id number] Univers 17:04:41 17:58:06 Care Unknown, Attending HEALTH 350.1.13.10 ity of [place] 4.2.7.2.686 Cory as BRYAN?BLEA [phone] [address] [facility] [facility] 2021-05-21 2021-05-21 Outpatient R SIDRA [facility] [id number] Univers 17:00:00 17:58:06 ATTENDING ity [facility] 2021-05-21 2021-05-21 Outpatient R ADILSON [facility] [id number] Univers 17:00:00 17:58:06 SOL ity [facility] 2021-05-19 2021-05-19 Telephone Kota [facility] [id number] Univers 00:00:00 00:00:00 Wentong HEALTH 350.1.13.10 it y of [place] 4.2.7.2.686 Cory as BRYAN?BLEA [phone] [address] MEDICAL OFFICE BUILDING 2021-05-17 2021-05-17 Refill Kota AKSINA 1.2.840.114 [id number] Univers 00:00:00 00:00:00 Neelima [place] 350.1.13.[address] [facility] 4.2.7.2.[place] [facility] [phone] [facility] [address] 2021-05-12 2021-05-12 Outpatient R KOTA [facility] [id number] Univers 15:30:00 15:30:00 [facility] 2021-05-12 2021-05-12 Outpatient R KOTA [facility] [id number] Univers 15:30:00 15:07:38 [facility] 2021-05-12 2021-05-12 Office Kota [facility] 1.2.840.114 [id number] Univers 13:01:02 15:07:38 Visit [facility] 350.1.13.10 it y of [place] 4.2.7.2.686 Cory as BRYAN?BLEA [phone] [address] MEDICAL OFFICE [facility] 2021-05-12 2021-05-12 Orders Doctor LETHA 1.2.840.114 [id number] Univers 00:00:00 00:00:00 Only Unassigned, CORKY 350.1.13.10 ity of [place] [facility] 4.2.7.2.686 Cory as [phone] [place] [address] [address] 2021-05-04 2021-05-04 Patient Kota AKSINA 1.2.840.114 [id number] Univers 00:00:00 00:00:00 Secure Msg [facility] MULTISPEC 350.1.13.10 ity of [facility] 4.2.7.2.[place] [phone] [facility] AND [facility] [place] [address] [facility] 2021-04-21 2021-04-21 Patient Valentin AKSINA 1.2.840.114 [id number] Univers 00:00:00 00:00:00 Secure Msg Brandie MULTISPEC 350.1.13.10 ity [place].2.[place] C[place] [id number] [facility] AND [address] [facility] 2021-04-21 2021-04-21 Telephone Kota AKSINA [id number] Univers 00:00:00 00:00:00 [facility] 350.1.13.10 it y of [place] 4.2.7.2.686 Cory as BRYAN?BLEA [phone] [address] MEDICAL OFFICE BUILDING 2021-04-20 2021-04-20 Patient Kota, [facility] 1.2.840.114 [id number] Univers 00:00:00 00:00:00 Secure Msg Neelima [place] 350.1.13.10 ity of [place].7.2.[place] [phone] [address] 2021-04-12 2021-04-12 Refill Kota, [facility] 1.2.840.114 [id number] Univers 00:00:00 00:00:00 Wentong [place] 350.1.13.10 i ty of [place].7.2.[place] [phone] [address] 2021-04-10 2021-04-10 Telephone Kota [facility] [id number] Univers 00:00:00 00:00:00 [facility] 350.1.13.10 i ty of [place].7.2.[place] [phone] [address] 2021-03-31 2021-03-31 Patient Kota AKSINA 1.2.840.114 [id number] Univers 00:00:00 00:00:00 Secure Msg Chrisong MULTISPEC 350.1.13.10 [place] of [place]2.7.2.686 [place] CENTER [phone] [address] [facility] 2021-03-31 2021-03-31 [facility] 1.2.840.114 [id number] Univers 00:00:00 00:00:00 Secure Msg Wentong MULTISPEC 350.1.13.10 ity of [place] 4[place]2.7.2.686 [place] CENTER [phone] [facility] AND [place] [address] [facility] 2021-03-30 2021-03-30 [facility] 1.2.840.114 [id number] Univers 00:00:00 00:00:00 Secure Msg [facility] 350.1.13.10 ity of [place] 4.2.7.2.686 Cory as Bryan?Blea [phone] [address] Medical Office [facility] 2021-03-24 2021-03-24 [facility] [id number] Univers 00:00:00 00:00:00 [facility] 350.1.13.10 it y of [place] 4.2.7.2.686 Cory as Bryan?Blea [phone] [address] Office [facility] 2021-03-16 2021-03-16 [facility] [id number] [id number] Univers 00:00:00 00:00:00 Wentong [place] 350.1.13.10 i ty of [place].7.2.[place] Profess[place] [phone] [address] 2021-03-13 2021-03-13 [facility] 1.2.840.114 [id number] Univers 00:00:00 00:00:00 Secure Msg Wentong [place] 350.1.13.10 ity of [place]2.7.2.[place] Profess[place] [phone] [address] 2021-03-13 2021-03-13 [facility] 1.2.840.114 [id number] Univers 00:00:00 00:00:00 Secure Msg Wentong [place] 350.1.13.10 ity of [place] 4[place]2.7.2.[place] [phone] [address] 2021-03-12 2021-03-12 Orders Doctor MONAE 1.2.840.114 [id number] Univers 00:00:00 00:00:00 Only Unassigned, CORKY 350.1.13.10 ity of [place] [facility] 4.2.7.2.686 Cory as [phone] [facility] [address] 2021-03-11 2021-03-11 Telephone [facility] 1.2.227.422 [id number] Univers 00:00:00 00:00:00 Neelima Dyson 350.1.13.10 i ty of [place] 4[place]2.7.2.[place] [phone] [facility] 220 [facility] 2021-02-18 2021-02-18 [facility] 1.2.840.114 [id number] Univers 09:14:00 13:31:00 Encounter Mirna tripathi 350.1.13.10 ity of [place].2.7.2.686 [place] Surgical [phone] [facility] [address] 2021-02-18 2021-02-18 Surgery [facility] 1.2.840.114 [id number] Univers 11:43:00 12:20:00 Mirna tripathi 350.1.13.10 ity of [place]2.[place].2.[place] [phone] [facility] [address] 2021-02-17 2021-02-17 Laboratory Only, Adc Test [facility] 1.2.840. 114 [id number] Univers 11:12:17 11:27:17 Only Mirna Fernandez 350.1.1 3.10 ity of [place] 4.2.7.2.686 [place] [phone] [facility] [address] 2021-02-17 2021-02-17 Outpatient R [facility] [id number] Univers 11:15:00 11:15:00 MIRNA Tripathi o f [facility] 2021-02-01 2021-02-01 Orders Doctor MONAE 1.2.840.114 [id number] Univers 00:00:00 00:00:00 Only Unassigned, CORKY 350.1.13.10 ity of [facility] 4.2.7.2.686 Cory as [phone] [address] 2021-01-14 2021-01-14 Outpatient R KOTA [facility] [id number] Univers 16:00:00 16:00:00 NEELIMA [facility] 2020-12-28 2020-12-28 Outpatient R FERNANDO [facility] [id number] Univers 11:40:00 11:40:00 DAX [facility] 2020-12-26 2020-12-26 Outpatient TWIN SEYMOUR 100 [id number] Sharri 00:00:00 00:00:00 Seybol d 2020-12-24 2020-12-24 Outpatient R KOTA [facility] [id number] Univers 11:45:00 11:45:00 NEELIMA [facility] 2020-12-24 2020-12-24 Outpatient DAWNTWIN [id number] Sharri 00:00:00 00:00:00 Seybol d 2020-09-06 2020-09-06 Outpatient [facility] [id number] Univers 13:30:00 [facility]:30[facility] 2020-08-16 Outpatient [facility] [id number] Univers 13:40:00 13:40:00 [facility] 2020-06-17 2020-06-17 Outpatient R KOTA [facility] [id number] Univers 09:00:00 09:00:00 CHRISLUIS [facility] 2020-04-03 2020-04-03 [facility] 1.2.840.114 [id number] 00:00:00 00:00:00 Neelima Dyson 350.1.13.10 [place] 4.2.7.2.686 Professio [phone] [address] 2020-02-06 2020-02-06 Office Kota [facility] 1.2.840.114 [id number] 13:55:45 14:59:00 Visit Neelima [place] 350.1.13.10 [place] 4.2.7.2.686 [facility] [phone] [facility] 2020-02-06 2020-02-06 Outpatient R KOTA [facility] [id number] Univers 14:00:00 14:00:00 NEELIMA vines [facility] 2019-12-25 2019-12-25 [facility] [id number] Univers 09:00:00 09:00:00 [facility] 2019-08-31 2019-08-31 Out[facility] [id number] Univers 15:30:00 15:30:00 YANI mittaladelina [facility] 2019-08-21 2019-08-21 Outpatient R KOTA [facility] [id number] Univers 08:30:00 08:30:00 [facility] Results Test Description Test Time Test Comments Results Result Comments Source POCT HEMOGLOBIN A1C TEST 2022-04-20 13:28:00 Test Item Value Reference Range Interpretation Comme nts POCT HBA1C (test code = 4548-4) 7.2 % 4-6 A Lab Interpretation (test code = 43250-9) [facility] [id number] 13:28:00 Test Item Value Reference Range Interpretation Comments POCT HBA1C (test code = 4548-4) 7.2 % 4-6 A Lab Interpretation (test code = Abnormal 92629-7) [facility]
[2022-12-09] MEDS ORDERED: ONDANSETRON 4 MG/2 ML VIAL ONE (01:53)
[2022-12-09] MEDS ORDERED: FAMOTIDINE 20 MG/2 ML VIAL IV ONE (01:53)
[2022-12-09] MEDS ORDERED: MORPHINE 4 MG/ML SYR ONE ×2 (01:53→04:05)
[2022-12-09] MEDS ORDERED: NA CHLORIDE 0.9% 1,000 ML ONE (01:54)
[2022-12-09 01:58] LABS: Absolute Lymphocytes (CBC) 1.8 K/uL (0.7-4.9); Hematocrit 34.7 % (39.6-49.0); Lymphocytes % 28.3 % (15.3-44.8); MCV 77.4 fL (80-100); MPV 8.1 fL (7.6-11.3); RBC Red Blood Cell Count 4.49 M/uL (4.33-5.43)
[2022-12-09 02:08] LABS: Albumin 3.2 g/dL (3.4-5.0); Bilirubin Total 0.2 mg/dL (0.2-1.0); Potassium 4.1 mEq/L (3.5-5.1); Protein, Total 6.8 g/dL (6.4-8.2)
[2022-12-09] MEDS ORDERED: METOCLOPRAMIDE 10 MG/2mL INJ ONE (04:04)
[2022-12-09 04:05] LABS: Anisocytosis 1+; Blood Morphology Comment NOTED (NOT SEEN); Platelet Estimate ADEQ; White Blood Cell Scan OK (OK)
[2022-12-09] MEDS ORDERED: NA CHLORIDE 0.9% 50 ML ONE (04:05)
[2022-12-09 04:18] LABS: Specific Gravity > 1.030 (1.005-1.030); Urine Bilirubin NEGATIVE (Negative); Urine Blood Negative (Negative); Urine Clarity Clear (Clear); Urine Color Light-Yellow (Yellow); Urine Glucose 4+ (Over) (Negative); Urine Protein NEGATIVE (Negative); Urine Urobilinogen Normal (Normal)
--- NOTE | 2022-12-09 04:22 | ER ---
Nurse's Notes [facility] Name: Adalid Chaves Jr Age: 52 yrs Sex: Male : 1970 Arrival Date: 12/09/2022 Time: 01:27 Bed 19 Private MD: Diagnosis: Spinal stenosis, lumbar region with neurogenic claudication;Lumbar spinal canal stenosis with bilateral lower extremity weakness, bilateral lower extremity numbness, inability to ambulate, incontinence of urine. Presentation: 12/09 01:31 Chief complaint: EMS states: Toned out for bilateral leg weakness, pt c/o back pain, ll3 trouble urinating, and trouble standing. Coronavirus screen: Vaccine status: Patient reports receiving the 2nd dose of the covid vaccine. At this time, the client does not indicate any symptoms associated with coronavirus-19. Ebola Screen: No symptoms or risks identified at this time. Initial Sepsis Screen: Does the patient meet any 2 criteria? No. Patient's initial sepsis screen is negative. Does the patient have a suspected source of infection? No. Patient's initial sepsis screen is negative. Risk Assessment: Do you want to hurt yourself or someone else? Patient reports no desire to harm self or others. Onset of symptoms was December 08, 2022. Care prior to arrival: Medication(s) given: Toradol 15 mg IM. 01:31 Method Of Arrival: [facility] 01:31 Acuity: YENNY 3 ll3 Triage Assessment: 01:35 General: Appears uncomfortable, Behavior is calm, cooperative. Pain: Complains of pain ll3 in back, right leg and left leg Pain does not radiate. Pain currently is 10 out of 10 on a pain scale. Is continuous. Neuro: Level of Consciousness is awake, alert, obeys commands, Oriented to person, place, time, situation, Reports numbness in buttocks. Derm: Wound noted Left third toenail. Musculoskeletal: Circulation, motion, and sensation intact. Reports weakness in right leg and left leg pain in back, right leg and left leg since States weakness has progressively gotten worse over the last 24 hours. Historical: - Allergies: 01:35 bee venom protein (honey bee); ll3 - PMHx: 01:35 Diabetes - IDDM; Hypertension; Low Iron; ll3 - PSHx: 01:35 bunionectomy; left knee; ll3 - Immunization history:: Client reports receiving the 2nd dose of the Covid vaccine. - Social history:: Smoking status: Patient denies any tobacco usage or history of. - Family history:: not pertinent. Screenin:38 [facility] ED Fall Risk Assessment (Adult) History of falling in the last 3 months, ll3 including since admission No falls in past 3 months (0 pts) Confusion or Disorientation No (0 pts) Intoxicated or Sedated No (0 pts) Impaired Gait Yes (1 pt) Mobility Assist Device Used No (0 pt) Altered Elimination No (0 pt) Score/Fall Risk Level 0 - 2 = Low Risk Oriented to surroundings, Maintained a safe environment, Educated pt \T\ family on fall prevention, incl call for assistance when getting out of bed. Abuse screen: Denies threats or abuse. Denies injuries from another. Nutritional screening: No deficits noted. Tuberculosis screening: No symptoms or risk factors identified. Assessment: 01:35 General: See triage assessment. ll3 02:37 Reassessment: Patient and/or family updated on plan of care and expected duration. Pain ll3 level reassessed. Patient is alert, oriented x 3, equal unlabored respirations, skin warm/dry/pink. States pain is 5/10 Patient states symptoms have improved. 04:07 Reassessment: Patient and/or family updated on plan of care and expected duration. Pain ll3 level reassessed. Patient is alert, oriented x 3, equal unlabored respirations, skin warm/dry/pink. States pain is 8/10, ERP notified, medicated as ordered. Vital Signs: 01:31 BP 157 / 80; Pulse 80; Resp 17; Temp 98.1(O); Pulse Ox 99% on R/A; Weight 142.88 kg ll3 (R); Height 6 ft. 4 in. (R); Pain 10/10; 02:56 BP 113 / 86; Pulse 72; Resp 16; Pulse Ox 98% on R/A; ll3 04:06 BP 157 / 90; Pulse 76; Resp 16; Pulse Ox 98% on R/A; ll3 05:14 BP 158 / 69; Pulse 66; Resp 17; Pulse Ox 96% on R/A; ll3 01:31 Body Mass Index 38.34 (142.88 kg, 193.04 cm) ll3 01:31 Pain Scale: Adult ll3 ED Course: 01:31 Patient arrived in ED. kd3 01:32 [facility] Moreno [facility] jmm 01:32 Cecil Morse MD is Attending Physician. jmm 01:35 Triage completed. ll3 01:35 Arm band placed on Patient placed in an exam room, on a stretcher, on pulse oximetry. ll3 01:38 Patient has correct armband on for positive identification. Bed in low position. Call ll3 light in reach. Side rails up X 1. 01:47 Inserted saline lock: 20 gauge in right forearm, using aseptic technique. Blood kd3 collected. 02:53 CT Abd/Pelvis - IV Contrast Only In Process Unspecified. EDMS 06:35 No provider procedures requiring assistance completed. Patient transferred, IV remains ll3 in place. Administered Medications: 01:52 Drug: Ondansetron IVP 8 mg Route: IVP; Site: right forearm; ll3 02:32 Follow up: Response: No adverse reaction ll3 01:52 Drug: NS 0.9% IV 1000 ml Route: IV; Rate: 1 bolus; Site: right forearm; ll3 06:37 Follow up: Response: No adverse reaction; IV Status: Completed infusion; IV Intake: ll3 1000ml 01:59 Drug: morphine IVP or IV 4 mg Route: IVP; Infused Over: 4 mins; Site: right forearm; ll3 02:32 Follow up: Response: No adverse reaction; Marked relief of symptoms; Pain is decreased ll3 01:59 Drug: Famotidine IVP 20 mg Route: IVP; Site: right forearm; ll3 02:33 Follow up: Response: No adverse reaction ll3 01:59 Drug: morphine IVP or IV 4 mg Route: IVP; Infused Over: 4 mins; Site: right forearm; ll3 02:32 Follow up: Response: Marked relief of symptoms; Pain is decreased ll3 04:06 Drug: morphine IVP or IV 4 mg Route: IVP; Infused Over: 4 mins; Site: right forearm; ll3 06:36 Follow up: Response: No adverse reaction; Pain is decreased ll3 04:06 Drug: metoCLOPramide IVP 10 mg Route: IVP; Site: right forearm; ll3 06:36 Follow up: Response: No adverse reaction ll3 Medication: 06:36 VIS not applicable for this client. ll3 Intake: 06:37 IV: 1000ml; Total: 1000ml. ll3 Outcome: 04:22 ER care complete, transfer ordered by . sp4 06:35 Transferred by ground EMS to [facility], Transfer form completed. ll3 X-rays sent w/ patient. 06:35 Condition: stable 06:35 Discharge instructions given to patient, EMS, Instructed on the need for transfer, Demonstrated understanding of instructions. 06:38 Patient left the ED. ll3 Signatures: Dispatcher [employer] EDMS Rob Moreno PA PA jmm Loubet, Lynsea, RN RN ll3 Leda Sumner RN RN kd3 Cecil Morse MD MD sp4
--- NOTE | 2022-12-09 04:23 | EDPHYS ---
Physician Documentation [facility] Name: Adalid Chaves Jr Age: 52 yrs Sex: Male : 1970 Arrival Date: 12/09/2022 Time: 01:27 Bed 19 Private MD: ED Physician Cecil Morse HPI: 12/09 01:37 This 52 yrs old Male presents to ER via EMS with complaints of Low Back Pain. sp4 04:09 Disease 52-year-old male with history of diabetes, hypertension, chronic lower back sp4 pain, presents with a marked worsening of lower back pain, bilateral lower extremity weakness, fall at home secondary to weakness, and reported incontinence of urine. Patient reported that yesterday throughout the day he felt worsening weakness in his lower extremities. He had trouble walking at work. Patient when he arrived home was sleeping in the recliner. Patient then got up to the bathroom developed weakness in the legs and fell onto the floor and EMS had to get him off the floor. Patient denied incontinence of bowel. Patient taking Zanaflex and ibuprofen for his chronic back pain.. Historical: - Allergies: 01:35 bee venom protein (honey bee); ll3 - PMHx: 01:35 Diabetes - IDDM; Hypertension; Low Iron; ll3 - PSHx: 01:35 bunionectomy; left knee; ll3 - Immunization history:: Client reports receiving the 2nd dose of the Covid vaccine. - Social history:: Smoking status: Patient denies any tobacco usage or history of. - Family history:: not pertinent. ROS: 04:09 Constitutional: Negative for fever, chills, and weight loss, Eyes: Negative for injury, sp4 pain, redness, and discharge, MS/Extremity: Negative for injury and deformity, positive for bilateral lower extremity weakness with lower back pain radiation to bilateral lower extremities. Skin: Negative for injury, rash, and discoloration, Neuro: Negative for headache, tingling, and seizure, positive bilateral lower extremity weakness, numbness, and incontinence of urine. 04:09 All other systems are negative. Exam: 04:09 Constitutional: This is a well developed, well nourished patient who is awake, alert, sp4 patient is in moderate distress secondary to pain, nonambulatory on arrival, bilateral lower extremity weakness on arrival. Head/Face: Normocephalic, atraumatic. Eyes: Pupils equal round and reactive to light, extra-ocular motions intact. Lids and lashes normal. Conjunctiva and sclera are not injected. Cornea within normal limits. Periorbital areas with no swelling, redness, or edema. ENT: Nares patent. No nasal discharge, no septal abnormalities noted. Tympanic membranes are normal and external auditory canals are clear. Oropharynx with no redness, swelling, or masses, exudates, or evidence of obstruction, uvula midline. Mucous membranes moist. Neck: Trachea midline, no thyromegaly or masses palpated, and no cervical lymphadenopathy. Supple, full range of motion without nuchal rigidity, or vertebral point tenderness. Chest/axilla: Normal chest wall appearance and motion. Nontender with no deformity. No lesions are appreciated. Cardiovascular: Regular rate and rhythm with a normal S1 and S2. No gallops, murmurs, or rubs. Normal PMI, no JVD. No pulse deficits. Respiratory: Lungs have equal breath sounds bilaterally, clear to auscultation and percussion. No rales, rhonchi or wheezes noted. No increased work of breathing, no retractions or nasal flaring. Abdomen/GI: Soft, non-tender, with normal bowel sounds. No distension or tympany. No guarding or rebound. No evidence of tenderness throughout. Back: No spinal tenderness. No costovertebral tenderness. Male : Normal genitalia with no discharge or lesions. Skin: Warm, dry with normal turgor. Normal color with no rashes, no lesions, and no evidence of cellulitis. MS/ Extremity: Pulses equal, no cyanosis. Bilateral lower extremity 4 out of 5 weakness, no no complete paralysis, bilateral lower extremity numbness fairly uniform distribution, there is areflexia. Patient not able to stand up or ambulate. Neuro: Awake and alert, GCS 15, oriented to person, place, time, and situation. Cranial nerves II-XII grossly intact. Motor strength 4/5 in bilateral lower extremities extremities. Sensory grossly intact. Bilateral lower extremity areflexia Psych: Awake, alert, with orientation to person, place and time. Behavior, mood, and affect are within normal limits 04:09 Abdomen/GI: Rectal exam: rectal tone poor, There is laxity of the anal tone, the exam sp4 is chaperoned by the nurse, Otherwise there is no mass, no fissure, no fistula and no impaction.. Vital Signs: 01:31 BP 157 / 80; Pulse 80; Resp 17; Temp 98.1(O); Pulse Ox 99% on R/A; Weight 142.88 kg ll3 (R); Height 6 ft. 4 in. (R); Pain 10/10; 02:56 BP 113 / 86; Pulse 72; Resp 16; Pulse Ox 98% on R/A; ll3 04:06 BP 157 / 90; Pulse 76; Resp 16; Pulse Ox 98% on R/A; ll3 05:14 BP 158 / 69; Pulse 66; Resp 17; Pulse Ox 96% on R/A; ll3 01:31 Body Mass Index 38.34 (142.88 kg, 193.04 cm) ll3 01:31 Pain Scale: Adult ll3 MDM: 01:37 Patient medically screened. sp4 03:47 ED course: IMPRESSION: 1. No acute abnormality of the abdomen or pelvis. 2. Multilevel sp4 spondylosis with large L3-4 and moderate to large L4-5 disc osteophyte complexes, which produce severe spinal canal narrowing. Consider further characterization by lumbar spine MRI if there is evidence of neurological deficit. 3. Skin thickening and subcutaneous stranding demonstrated along the left lower quadrant abdominal wall, presumably reflecting inflammatory skin process. Clinical correlation recommended. Electronically signed by: William Montes MD 12/09/2022 3:17 AM CDT . 04:09 Differential diagnosis: arthritis, strain, fracture, sciatica, contusion, Herniated sp4 disc UTI. Data reviewed: vital signs, nurses notes, EMS record, old medical records, lab test result(s), radiologic studies, CT scan. Consideration of Admission/Observation Patient was admitted/placed on observation. Escalation of care including admission/observation considered. ED course: Based on CT findings there is L3-L4 and L4-L5 disc osteophyte complexes producing severe spinal canal narrowing. Multilevel spondylosis and large L3-L4 and L4-L5 disc osteophyte complexes producing severe spinal canal stenosis. Moderate disc osteophyte complex at L5-S1 with mild to moderate canal narrowing. MRI was advised for further assessment. . ED course: Patient was discussed with neurologist on-call who advised emergent transfer for neurosurgery assessment and MRI of the L-spine.. 12/09 01:36 Order name: CBC with Diff; Complete Time: 04:22 sp4 12/09 01:36 Order name: CMP; Complete Time: 03:43 sp4 12/09 01:36 Order name: Lipase; Complete Time: 03:43 sp4 12/09 01:36 Order name: Urinalysis w/ reflexes; Complete Time: 04:22 sp4 12/09 02:15 Order name: CBC Smear Scan; Complete Time: 04:22 EDMS 12/09 05:33 Order name: Glucose, Ancillary Testing; Complete Time: 05:42 EDMS 12/09 01:36 Order name: CT Abd/Pelvis - IV Contrast Only sp4 12/09 01:36 Order name: IV Saline Lock; Complete Time: 01:39 sp4 12/09 01:36 Order name: Labs collected and sent; Complete Time: 01:39 sp4 Administered Medications: 01:52 Drug: Ondansetron IVP 8 mg Route: IVP; Site: right forearm; ll3 02:32 Follow up: Response: No adverse reaction ll3 01:52 Drug: NS 0.9% IV 1000 ml Route: IV; Rate: 1 bolus; Site: right forearm; ll3 06:37 Follow up: Response: No adverse reaction; IV Status: Completed infusion; IV Intake: ll3 1000ml 01:59 Drug: morphine IVP or IV 4 mg Route: IVP; Infused Over: 4 mins; Site: right forearm; ll3 02:32 Follow up: Response: No adverse reaction; Marked relief of symptoms; Pain is decreased ll3 01:59 Drug: Famotidine IVP 20 mg Route: IVP; Site: right forearm; ll3 02:33 Follow up: Response: No adverse reaction ll3 01:59 Drug: morphine IVP or IV 4 mg Route: IVP; Infused Over: 4 mins; Site: right forearm; ll3 02:32 Follow up: Response: Marked relief of symptoms; Pain is decreased ll3 04:06 Drug: morphine IVP or IV 4 mg Route: IVP; Infused Over: 4 mins; Site: right forearm; ll3 06:36 Follow up: Response: No adverse reaction; Pain is decreased ll3 04:06 Drug: metoCLOPramide IVP 10 mg Route: IVP; Site: right forearm; ll3 06:36 Follow up: Response: No adverse reaction ll3 Disposition Summary: 12/09/22 04:22 Transfer Ordered Transfer Location: [facility] sp4 Reason: Higher level of care sp4 Condition: Stable sp4 Problem: new sp4 Symptoms: are unchanged sp4 Accepting Physician: [facility] attending .(12/09/22 06:38) ll3 Diagnosis - Spinal stenosis, lumbar region with neurogenic claudication sp4 - Lumbar spinal canal stenosis with bilateral lower extremity weakness, bilateral sp4 lower extremity numbness, inability to ambulate, incontinence of urine. Forms: - Medication Reconciliation Form sp4 - SBAR form sp4 Signatures: Dispatcher [employer] Abeba Gerardo RN RN ll3 Cecil Morse MD MD sp4 Corrections: (The following items were deleted from the chart) 06:38 04:22 [facility] attending . sp4 ll3
[2022-12-09 06:49] VITALS: TEMP 98.1
[2022-12-09 07:07] VITALS: BP 158/69; O2SAT 96
--- NOTE | 2022-12-09 10:32 | RAD REPORT ---
EXAM DESCRIPTION: CT - Abdomen Pelvis W Contrast - 12/09/2022 5:57 am CLINICAL HISTORY: The patient is 52 years old and is Male; spinal and pelvic pain [facility] MAIN TECHNIQUE: Axial computed tomography images of the abdomen and pelvis with intravenous contrast. S agittal and coronal reformatted images were created and reviewed. This CT exam was performed using one or more of the following dose reduction techniques: automated exposure control, adjustment of t he mA and/or kV according to patient size, and/or use of iterative reconstruction technique. COMPARISON: No relevant prior studies available. FINDINGS: LUNG BASES: Unremarkable. No mass. No consolidation. ABDOMEN: LIVER: Unremarkable. No mass. GALLBLADDER AND BILE DUCTS: Unremarkable. No calcified stones. No ductal dilation. PANCREAS: Unremarkable. No mass. No ductal dilation. SPLEEN: Unremarkable. No splenomegaly. ADRENALS: Unremarkable. No mass. KIDNEYS AND URETERS: Unremarkable. No solid mass. No hydronephrosis. STOMACH AND BOWEL: Unremarkable. No obstruction. No mucosal thickening. PELVIS: APPENDIX: No findings to suggest acute appendicitis. BLADDER: Unremarkable. No mass. REPRODUCTIVE: Unremarkable as visualized. ABDOMEN and PELVIS: INTRAPERITONEAL SPACE: Unremarkable. No free air. No significant fluid collection. BONES/JOINTS: Straightening of the lumbar spine as the patient is positioned. Multilevel spondylosi s with large L3-4 and moderate to large L4-5 disc osteophyte complexes, which produce severe spinal c anal narrowing. Moderate disc osteophyte complex at L5-S1, with mild to moderate canal narrowing. No acute fracture. No dislocation. SOFT TISSUES: Skin thickening and subcutaneous stranding demonstrated along the left lower quadrant abdominal wall, presumably reflecting inflammatory skin process. VASCULATURE: Multivessel coronary artery calcifications. No abdominal aortic aneurysm. LYMPH NODES: Unremarkable. No enlarged lymph nodes. IMPRESSION: 1. No acute abnormality of the abdomen or pelvis. 2. Multilevel spondylosis with large L3-4 and moderate to large L4-5 disc osteophyte complexes, whi ch produce severe spinal canal narrowing. Consider further characterization by lumbar spine MRI if th ere is evidence of neurological deficit. 3. Skin thickening and subcutaneous stranding demonstrated along the left lower quadrant abdominal wall, presumably reflecting inflammatory skin process. Clinical correlation recommended. Electronically signed by: William Montes MD 12/09/2022 3:17 AM CDT Due to temporary technical issues with the PACS/Fluency reporting system, reports are being signed by the in house radiologists without review as a courtesy to insure prompt reporting. The interpreting radiologist is fully responsible for the content of the report.
== END 2022-12-09 06:38 | disposition short-term general hospital (02) ==
LOC: ER 01:27
DX: M48.062 Spinal stenosis, lumbar region with neurogenic claudication (principal); R32 Unspecified urinary incontinence; R26.2 Difficulty in walking, not elsewhere classified; G57.93 Unspecified mononeuropathy of bilateral lower limbs; M62.81 Muscle weakness (generalized); E11.9 Type 2 diabetes mellitus without complications; I10 Essential (primary) hypertension; Z91.030 Bee allergy status
CPT/HCPCS: 96361; 85025; 36415; 82947; 81003; 83690; 80053; 74177; 96375; 96374; 99285; Q9967; J2765; J2405; J7030

== ENCOUNTER 2024-04-21 20:17 | Emergency (ER) | payer OTHER ==
--- NOTE | 2024-04-21 21:11 | ER ---
Nurse's Notes [facility] Name: Adalid Chaves Jr Age: 53 yrs Sex: Male : 1970 Arrival Date: 04/21/2024 Time: 20:17 Bed 2 Private MD: Diagnosis: Local infection of the skin and subcutaneous tissue, unspecified-right thigh Presentation: 04/21 20:20 Chief complaint: Patient states: possible skin allergic reaction after using a ha1 prescribed medication. redness on the left thigh. 20:20 Coronavirus screen: Vaccine status: Patient reports being unvaccinated. Ebola Screen: ha1 No symptoms or risks identified at this time. Onset: The symptoms/episode began/occurred 5 day(s) ago. Initial Sepsis Screen: Does the patient meet any 2 criteria? No. Patient's initial sepsis screen is negative. Does the patient have a suspected source of infection? No. Patient's initial sepsis screen is negative. Risk Assessment: Do you want to hurt yourself or someone else? Patient reports no desire to harm self or others. Onset of symptoms was April 21, 2024. 20:20 Method Of Arrival: Ambulatory ha1 20:20 Acuity: YENNY 3 ha1 Historical: - Allergies: 20:37 bee venom protein (honey bee); ha1 20:37 Terbinafine; ha1 20:37 Ketoconazole; ha1 - PMHx: 20:37 Diabetes - IDDM; Hypertension; Low Iron; ha1 - PSHx: 20:37 bunionectomy; left knee; ha1 - Immunization history:: Adult Immunizations up to date. - Infectious Disease History:: Denies. - Social history:: Smoking status: Patient denies any tobacco usage or history of. Screenin:29 [facility] ED Fall Risk Assessment (Adult) History of falling in the last 3 months, jj7 including since admission No falls in past 3 months (0 pts) Confusion or Disorientation No (0 pts) Intoxicated or Sedated No (0 pts) Impaired Gait No (0 pts) Mobility Assist Device Used No (0 pt) Altered Elimination No (0 pt) Score/Fall Risk Level 0 - 2 = Low Risk Oriented to surroundings, Maintained a safe environment, Educated pt \T\ family on fall prevention, incl call for assistance when getting out of bed, Assessed \T\ reinforced patient's understanding of fall precautions. Abuse screen: Denies threats or abuse. Nutritional screening: No deficits noted. Tuberculosis screening: No symptoms or risk factors identified. Assessment: 20:29 General: Appears in no apparent distress. comfortable, Behavior is calm, cooperative, jj7 appropriate for age. Pain: Complains of pain in lateral aspect of right thigh. Respiratory: Airway is patent Respiratory effort is even, unlabored, Breath sounds are clear bilaterally. Derm: Skin is intact, Skin is red, Rash noted that is itchy, red, on lateral aspect of right thigh Reports itching, pain. Vital Signs: 20:20 BP 143 / 77; Pulse 84; Resp 17 S; Temp 98; Pulse Ox 97% on R/A; Weight 120.2 kg; Height ha1 6 ft. 2 in. ; 21:26 BP 132 / 76; Pulse 86; Resp 16; Temp 98.3; Pulse Ox 99% ; jj7 20:20 Body Mass Index 34.02 (120.20 kg, 187.96 cm) ha1 ED Course: 20:19 Patient arrived in ED. jj6 20:29 Azra Aquino, RN is Primary Nurse. jj7 20:29 Patient has correct armband on for positive identification. Bed in low position. Call jj7 light in reach. Provided Education on: USE OF CALL LOYD. 20:30 Abraham Chaves PA is PHCP. cp 20:30 Abraham Mederos MD is Attending Physician. cp 20:37 Triage completed. ha1 21:26 No provider procedures requiring assistance completed. Patient did not have IV access jj7 during this emergency room visit. Administered Medications: 21:17 Drug: Doxycycline PO 200 mg PO once Route: PO; jj7 21:25 Follow up: Response: No adverse reaction jj7 21:17 Drug: Mupirocin Topical Ointment 2 % 1 application Topical once Route: Topical; Site: jj7 right thigh; 21:25 Follow up: Response: No adverse reaction jj7 Medication: 20:29 VIS not applicable for this client. jj7 Outcome: 21:10 Discharge ordered by . cp 21:26 Discharged to home ambulatory, jj7 21:26 Condition: good 21:26 Discharge instructions given to patient, Instructed on discharge instructions, medication usage, Demonstrated understanding of instructions, medications, Prescriptions given X 3, 21:28 Patient left the ED. jj7 Signatures: Abraham Chaves PA PA cp Jeffries, Jennifer jj6 Asha Dickerson RN RN ha1 Azra Aquino RN RN jj7
--- NOTE | 2024-04-21 21:11 | EDPHYS ---
Physician Documentation [facility] Name: Adalid Chaves Jr Age: 53 yrs Sex: Male : 1970 Arrival Date: 04/21/2024 Time: 20:17 Bed 2 Private MD: ED Physician Abraham Mederos HPI: 04/21 20:50 This 53 yrs old Male presents to ER via Ambulatory with complaints of Allergic cp Reaction. 20:50 The patient presents with redness of skin, local, right thigh. cp 20:50 Onset: The symptoms/episode began/occurred about 2 weeks. cp 20:50 Associated signs and symptoms: Pertinent positives: swelling, pain, redness, Pertinent cp negatives: fever, chills, shortness of breath. Possible causes: was prescribed antifungal cream, terbinafine, for ringworm over 1 week ago, used cream up until about a week ago with rash worsening. Historical: - Allergies: 20:37 bee venom protein (honey bee); ha1 20:37 Terbinafine; ha1 20:37 Ketoconazole; ha1 - PMHx: 20:37 Diabetes - IDDM; Hypertension; Low Iron; ha1 - PSHx: 20:37 bunionectomy; left knee; ha1 - Immunization history:: Adult Immunizations up to date. - Infectious Disease History:: Denies. - Social history:: Smoking status: Patient denies any tobacco usage or history of. ROS: 20:55 Skin: Positive for rash, of the right thigh, cp 20:55 Eyes: Negative for injury, pain, redness, and discharge, cp 20:55 Constitutional: Negative for body aches, chills, fever, 20:55 ENT: Negative for sore throat, difficulty swallowing, difficulty handling secretions, 20:55 Respiratory: Negative for cough, shortness of breath, wheezing, 20:55 All other systems are negative, Exam: 21:00 Constitutional: The patient appears in no acute distress, alert, awake, non-toxic, well cp developed, well nourished, 21:00 Head/Face: Normocephalic, atraumatic. cp 21:00 Cardiovascular: Rate: normal, 21:00 Respiratory: the patient does not display signs of respiratory distress, Respirations: normal, no use of accessory muscles, no retractions, labored breathing, is not present, Breath sounds: are clear throughout, no decreased breath sounds, no stridor, no wheezing, 21:00 Skin: rash can be described as erythematous, well circumscribed, mild swelling, tender and warm to touch with small satellite lesions, on the right thigh, Vital Signs: 20:20 BP 143 / 77; Pulse 84; Resp 17 S; Temp 98; Pulse Ox 97% on R/A; Weight 120.2 kg; Height ha1 6 ft. 2 in. ; 21:26 BP 132 / 76; Pulse 86; Resp 16; Temp 98.3; Pulse Ox 99% ; jj7 20:20 Body Mass Index 34.02 (120.20 kg, 187.96 cm) ha1 MDM: 20:30 Medical Screening Exam initiated cp 21:00 Differential diagnosis: cellulitis, erysipelas, tinea. cp 21:10 Data reviewed: vital signs, nurses notes, and as a result, I will discharge patient. cp Administered Medications: 21:17 Drug: Doxycycline PO 200 mg PO once Route: PO; jj7 21:25 Follow up: Response: No adverse reaction jj7 21:17 Drug: Mupirocin Topical Ointment 2 % 1 application Topical once Route: Topical; Site: jj7 right thigh; 21:25 Follow up: Response: No adverse reaction jj7 Disposition Summary: 04/21/24 21:10 Discharge Ordered Notes: Location: Home cp Problem: new cp Symptoms: have improved cp Condition: Stable cp Diagnosis - Local infection of the skin and subcutaneous tissue, unspecified - right thigh cp Followup: cp - With: Private Physician - When: 2 - 3 days - Reason: no improvement, sooner worsening symptoms Discharge Instructions: - Discharge Summary Sheet cp - Cellulitis, Adult cp Forms: - Medication Reconciliation Form cp - Antibiotic Education cp - Prescription Opioid Use cp - Patient Portal Instructions cp - Leadership Thank You Letter cp Prescriptions: - mupirocin calcium 2 % Topical cream - apply 1 application TOPICAL route 2-3 times daily; 30 gram tube; Refills: 0, cp Product Selection Permitted - Clotrimazole 1 % Topical cream - Apply to affected area 1 application TOPICAL route every 12 hours; 30 gram; cp Refills: 0, Product Selection Permitted - Doxycycline Hyclate 100 mg Oral Tablet - take 1 tablet ORAL route every 12 hours; 20 tablet; Refills: 0, Product cp Selection Permitted Signatures: Abraham hCaves PA PA cp Asha Dickerson RN RN ha1 Azra Aquino RN RN jj7 Corrections: (The following items were deleted from the chart) 04/22 17:01 04/21 20:50 Possible causes: was prescribed antifungal cream for ringworm over 1 week cp ago, used cream up until about a week ago but rash is worse, cp
[2024-04-21] MEDS ORDERED: DOXYCYCLINE 100 MG CAP PO ONE (21:12)
[2024-04-21] MEDS ORDERED: MUPIROCIN 2% OINT 22GM TUBE TOP ONE (21:13)
[2024-04-21 21:33] VITALS: BP 132/76; TEMP 98.3; O2SAT 99
== END 2024-04-21 21:28 | disposition home or self-care (01) ==
LOC: ER 20:17
DX: L08.9 Local infection of the skin and subcutaneous tissue, unspecified (principal)
CPT/HCPCS: 99283

== ENCOUNTER 2024-07-29 14:11 | Inpatient (IN) | payer OTHER ==
[2024-07-29 15:21] LABS: Absolute Basophils 0.1 K/uL (0-0.5); Absolute Monocytes 0.5 K/uL (0.1-1.3); Absolute Neutrophil 17.4 K/uL (1.8-8.0); Basophils % 0.4 % (0-1.3); Eosinophils % 0.2 % (0-4.4); Hematocrit 42.7 % (39.6-49.0); Hemoglobin 14.2 g/dL (13.6-17.9); Lymphocytes % 5.2 % (15.3-44.8); MCH 28.3 pg (27.0-35.0); MCHC 33.2 g/dL (32.0-36.0); MCV 85.1 fL (80-100); MPV 8.6 fL (7.6-11.3); Monocytes % 2.8 % (3.3-12.3); Neutrophils % 91.4 % (41.7-73.7); Platelets 180 thou/uL (152-406); RBC Red Blood Cell Count 5.01 M/uL (4.33-5.43); Red Cell Distribution Width 14.2 % (12.1-15.2)
[2024-07-29] MEDS ORDERED: ONDANSETRON 4 MG/2 ML VIAL ONE (15:35)
[2024-07-29] MEDS ORDERED: NA CHLORIDE 0.9% 1,000 ML ONE (15:36)
[2024-07-29] MEDS ORDERED: MORPHINE 4 MG/ML SYR ONE ×2 (15:36→17:04)
[2024-07-29 15:37] LABS: Albumin 3.7 g/dL (3.4-5.0); Albumin/Globulin Ratio 0.9 (1.1-1.8); Globulin 4.1 g/dL (2.3-3.5); Protein, Total 7.8 g/dL (6.4-8.2)
--- NOTE | 2024-07-29 16:45 | RAD REPORT ---
EXAMINATION: CT ABDOMEN AND PELVIS WITH CONTRAST CLINICAL INDICATION: ABD PAIN TECHNIQUE: CT abdomen and pelvis was performed, after the administration of IV [facility] Axial, sagittal and coronal reconstructions were obtained. One or more of the following dose reduction techniques were used: Automated exposure control, adjustment of the mA and k V according to patient size, and iterative reconstruction. Unless otherwise specified, incidental findings do not require dedicated imaging follow-up. COMPARISON: 12/09/2022 FINDINGS: LOWER CHEST: The visualized lung bases are clear. LIVER: Mild fatty liver is present. No focal lesion or biliary dilatation is seen. Grossly unremark able gallbladder. SPLEEN: Normal size. No focal lesion. PANCREAS: No mass, ductal dilation, or hanane-pancreatic fluid. ADRENALS: Normal; no mass. KIDNEYS: Normal size and contour. No hydronephrosis. GASTROINTESTINAL TRACT: No evidence of free air, significant intra-abdominal free fluid, bowel obstru ction or abscess. APPENDIX: Enlarged appendix measuring up to 17 mm with significant inflammation present compatible wi th acute appendicitis. LYMPH NODES: No lymphadenopathy. MUSCULOSKELETAL: Significant lumbar degenerative changes are present with postoperative changes noted . ADDITIONAL FINDINGS: None. IMPRESSION: Acute appendicitis.
[2024-07-29] MEDS ORDERED: PIPERACIL/TAZO 3.375 GM VIAL IV ONE (17:04)
[2024-07-29] MEDS ORDERED: NA CHLORIDE 0.9% 100 ML ONE (17:04)
--- NOTE | 2024-07-29 17:24 | ER ---
Nurse's Notes [facility] Name: Adalid Chaves Jr Age: 54 yrs Sex: Male : 1970 Arrival Date: 07/29/2024 Time: 14:11 Bed 5 Private MD: Diagnosis: Acute appendicitis with localized peritonitis Presentation: 07/29 15:15 Onset of symptoms was July 29, 2024. iw 15:15 Acuity: YENNY 3 iw 15:16 Chief complaint: Patient states: RLQ pain since midnight , denies n/v/d, denies urinary iw symptoms. Coronavirus screen: At this time, the client does not indicate any symptoms associated with coronavirus-19. Ebola Screen: No symptoms or risks identified at this time. Initial Sepsis Screen: Does the patient meet any 2 criteria? No. Patient's initial sepsis screen is negative. Does the patient have a suspected source of infection? No. Patient's initial sepsis screen is negative. Risk Assessment: Do you want to hurt yourself or someone else? Patient reports no desire to harm self or others. 15:16 Method Of Arrival: Wheelchair iw Historical: - Allergies: 15:15 bee venom protein (honey bee); iw 15:15 Ketoconazole; iw 15:15 TERBINAFINE; iw - PMHx: 15:15 Diabetes - IDDM; Hypertension; Low Iron; iw - PSHx: 15:15 left knee; bunionectomy; back; iw Screenin:45 [facility] ED Fall Risk Assessment (Adult) History of falling in the last 3 months, iw including since admission No falls in past 3 months (0 pts) Confusion or Disorientation No (0 pts) Intoxicated or Sedated No (0 pts) Impaired Gait No (0 pts) Mobility Assist Device Used No (0 pt) Altered Elimination No (0 pt) Score/Fall Risk Level 0 - 2 = Low Risk Oriented to surroundings, Maintained a safe environment. Abuse screen: Denies threats or abuse. Nutritional screening: No deficits noted. Tuberculosis screening: No symptoms or risk factors identified. Assessment: 15:44 General: Appears in no apparent distress. Behavior is calm, cooperative. Pain: iw Complains of pain in right lower quadrant. Neuro: Level of Consciousness is awake, alert, obeys commands, Oriented to person, place, time, situation, Moves all extremities. Full function. Cardiovascular: Patient's skin is warm and dry. Respiratory: Respiratory effort is even, unlabored, Respiratory pattern is regular. GI: Abdomen is flat, non-distended, Reports lower abdominal pain, nausea. Derm: Skin is intact, is healthy with good turgor. Musculoskeletal: Range of motion: intact in all extremities. 16:35 Reassessment: Patient appears in no apparent distress at this time. Patient is alert, iw oriented x 3, equal unlabored respirations, skin warm/dry/pink. pt returned from CT. 17:31 Reassessment: Patient appears in no apparent distress at this time. Patient and/or iw family updated on plan of care and expected duration. Pain level reassessed. Patient is alert, oriented x 3, equal unlabored respirations, skin warm/dry/pink. Vital Signs: 15:17 BP 122 / 79; Pulse 105; Resp 16; Pulse Ox 96% on R/A; Weight 120.2 kg; Height 6 ft. 4 iw in. ; Pain 9/10; 17:30 BP 121 / 75; Pulse 94; Resp 16; Temp 97.9(TE); Pulse Ox 98% ; iw 15:17 Body Mass Index 32.26 (120.20 kg, 193.04 cm) iw 15:17 Pain Scale: Adult iw ED Course: 14:14 Patient arrived in ED. ra3 14:15 Camren Hanson PA-C is PHCP. sb4 14:15 Vincent Wick MD is Attending Physician. sb4 14:56 Alyx Martinez, RN is Primary Nurse. iw 15:15 Triage completed. iw 15:15 Initial lab(s) drawn, by me, sent to lab. Inserted saline lock: 20 gauge in left iw forearm, using aseptic technique. Blood collected. Flushed with 10 mL NS. 15:16 Arm band placed on. iw 15:45 Patient has correct armband on for positive identification. Bed in low position. Call iw light in reach. Side rails up X2. Provided Education on: ct . Client placed on continuous cardiac and pulse oximetry monitoring. NIBP monitoring applied. 16:32 CT Abd/Pelvis - IV Contrast Only In Process Unspecified. EDMS 17:23 Master Perdue is Hospitalizing Provider. sb4 17:30 Lactate w/ 2H reflex if indic. Sent. iw 17:30 Blood Culture Adult (2) Sent. iw Administered Medications: 15:43 Drug: Ondansetron IVP 4 mg IVP once; over 2 minutes Route: IVP; Site: right forearm; iw 16:10 Follow up: Response: No adverse reaction iw 15:43 Drug: morphine IVP or IV 4 mg IVP once over 4 mins Route: IVP; Infused Over: 4 mins; iw Site: right forearm; 16:40 Follow up: Response: No adverse reaction iw 15:43 Drug: NS 0.9% IV 1000 ml IV at 1 bolus Per protocol; to be given as a bolus over 60 iw minutes Route: IV; Rate: 1 bolus; Site: right forearm; 17:00 Follow up: IV Status: Completed infusion iw 17:20 Drug: morphine IVP or IV 4 mg IVP once over 4 mins Route: IVP; Infused Over: 4 mins; iw Site: right forearm; 18:30 Follow up: Response: No adverse reaction; Pain is decreased iw 17:30 Drug: Piperacillin-Tazobactam IVPB 3.375 grams IVPB once over 60 mins; (mix in NS 100 iw mL) Route: IVPB; Infused Over: 60 mins; Site: right forearm; 18:15 Follow up: IV Status: Completed infusion iw Medication: 18:18 VIS not applicable for this client. jb4 Outcome: 17:23 Decision to Hospitalize by Provider. sb4 19:07 Patient left the ED. iw Signatures: Dispatcher [employer] Alyx Gregory RN RN iw Javier Saeed RN RN jb4 Carmen Hanson PA-C PAYasmin sb4 Carey Hu ra3 Corrections: (The following items were deleted from the chart) 15:44 15:17 BP 122 / 79; Resp 16bpm; Pulse Ox 96% RA; Pain 9/10, Adult; iw iw
--- NOTE | 2024-07-29 17:24 | EDPHYS ---
Physician Documentation [facility] Name: Adalid Chaves Jr Age: 54 yrs Sex: Male : 1970 Arrival Date: 07/29/2024 Time: 14:11 Bed 5 Private MD: ED Physician Vincent Wick HPI: 07/29 17:48 This 54 yrs old Male presents to ER via Wheelchair with complaints of sb4 Abdominal Pain. 17:48 The patient presents with abdominal pain right lower quadrant. Onset: The sb4 symptoms/episode began/occurred this morning. The symptoms do not radiate. Associated signs and symptoms: none. The symptoms are described as sharp. Modifying factors: The symptoms are alleviated by remaining still, the symptoms are aggravated by movement, pressure, touching the area. The patient has not experienced similar symptoms in the past. The patient has not recently seen a physician. Historical: - Allergies: 15:15 bee venom protein (honey bee); iw 15:15 Ketoconazole; iw 15:15 TERBINAFINE; iw - PMHx: 15:15 Diabetes - IDDM; Hypertension; Low Iron; iw - PSHx: 15:15 left knee; bunionectomy; back; iw ROS: 17:48 Constitutional: Negative for fever, chills, and weight loss, sb4 17:48 Abdomen/GI: Positive for abdominal pain, 17:48 All other systems are negative, Exam: 17:48 Head/Face: Normocephalic, atraumatic. Eyes: Extra-ocular motions intact. Periorbital sb4 areas with no swelling, redness, or edema. ENT: Mucous membranes moist. Cardiovascular: Regular rate and rhythm with a normal S1 and S2. Respiratory: No increased work of breathing, no retractions or nasal flaring. Skin: Warm, dry with normal turgor. Normal color with no rashes, no lesions, and no evidence of cellulitis. 17:48 Constitutional: The patient appears alert, awake, obese, in obvious pain, uncomfortable, 17:48 Abdomen/GI: Inspection: abdomen appears normal, obese Bowel sounds: normal, Palpation: soft, moderate abdominal tenderness, in the right lower quadrant, rebound tenderness, is appreciated in the right lower quadrant, involuntary guarding, is elicited in the right lower quadrant, Indicators: McBurney's point is tender, Vital Signs: 15:17 BP 122 / 79; Pulse 105; Resp 16; Pulse Ox 96% on R/A; Weight 120.2 kg; Height 6 ft. 4 iw in. ; Pain 9/10; 17:30 BP 121 / 75; Pulse 94; Resp 16; Temp 97.9(TE); Pulse Ox 98% ; iw 15:17 Body Mass Index 32.26 (120.20 kg, 193.04 cm) iw 15:17 Pain Scale: Adult iw MDM: 14:27 Medical Screening Exam initiated sb4 17:49 Data reviewed: vital signs, nurses notes, lab test result(s), radiologic studies, and sb4 as a result, I will admit patient. Consideration of Admission/Observation Patient was admitted/placed on observation. Management of patient was discussed with the following: Energy Project Engineer: Dr. Canela, will take patient to OR. Care significantly affected by the following chronic conditions: Diabetes, Hypertension, Obesity. Counseling: I had a detailed discussion with the patient and/or guardian regarding the historical points, exam findings, and any diagnostic results supporting the discharge/admit diagnosis, lab results, radiology results, the need for further work-up and treatment in the hospital. 07/29 15:07 Order name: CBC with Diff; Complete Time: 17:50 sb4 07/29 15:07 Order name: CMP; Complete Time: 15:38 sb4 07/29 15:07 Order name: Lipase; Complete Time: 15:38 sb4 07/29 15:07 Order name: Urinalysis w/ reflexes sb4 07/29 17:04 Order name: Blood Culture Adult (2) sb4 07/29 17:04 Order name: Lactate w/ 2H reflex if indic.; Complete Time: 17:57 sb4 07/29 17:04 Order name: PT-INR; Complete Time: 12:09 sb4 07/29 17:04 Order name: Ptt, Activated; Complete Time: 12:09 sb4 07/29 17:48 Order name: CBC Smear Scan; Complete Time: 17:50 EDMS 07/29 17:50 Order name: Basic Metabolic Panel EDMS 07/29 17:50 Order name: Basic Metabolic Panel; Complete Time: 12:09 EDMS 07/29 17:50 Order name: CBC with Automated Diff EDMS 07/29 17:50 Order name: CBC with Automated Diff; Complete Time: 12:09 EDMS 07/29 17:50 Order name: Magnesium EDMS 07/29 17:50 Order name: Magnesium; Complete Time: 12:09 EDMS 07/29 17:50 Order name: Phosphorus EDMS 07/29 17:50 Order name: Phosphorus; Complete Time: 12:09 EDMS 07/29 15:07 Order name: CT Abd/Pelvis - IV Contrast Only; Complete Time: 16:47 sb4 07/29 17:43 Order name: CONS Physician Consult EDMS 07/29 15:07 Order name: IV Saline Lock; Complete Time: 15:14 sb4 07/29 15:07 Order name: Labs collected and sent; Complete Time: 15:14 sb4 07/29 16:47 Order name: NPO; Complete Time: 17:05 sb4 Administered Medications: 15:43 Drug: Ondansetron IVP 4 mg IVP once; over 2 minutes Route: IVP; Site: right forearm; iw 16:10 Follow up: Response: No adverse reaction iw 15:43 Drug: morphine IVP or IV 4 mg IVP once over 4 mins Route: IVP; Infused Over: 4 mins; iw Site: right forearm; 16:40 Follow up: Response: No adverse reaction iw 15:43 Drug: NS 0.9% IV 1000 ml IV at 1 bolus Per protocol; to be given as a bolus over 60 iw minutes Route: IV; Rate: 1 bolus; Site: right forearm; 17:00 Follow up: IV Status: Completed infusion iw 17:20 Drug: morphine IVP or IV 4 mg IVP once over 4 mins Route: IVP; Infused Over: 4 mins; iw Site: right forearm; 18:30 Follow up: Response: No adverse reaction; Pain is decreased iw 17:30 Drug: Piperacillin-Tazobactam IVPB 3.375 grams IVPB once over 60 mins; (mix in NS 100 iw mL) Route: IVPB; Infused Over: 60 mins; Site: right forearm; 18:15 Follow up: IV Status: Completed infusion iw Disposition: 07/30 09:07 Co-signature as Attending Physician, Vincent Wick MD I reviewed the patient's care rn provided by the Advanced Practice Provider and agree with the diagnosis and treatment plan. Disposition Summary: 07/29/24 17:23 Hospitalization Ordered Notes: Hospitalization Status: Inpatient Admission sb4 Provider: Master Perdue sb4 [facility] sb4 Condition: Fair sb4 Problem: new sb4 Symptoms: are unchanged sb4 Bed/Room Type: Standard sb4 Room Assignment: 430(07/29/24 17:57) eb Diagnosis - Acute appendicitis with localized peritonitis sb4 Forms: - Medication Reconciliation Form sb4 - SBAR form sb4 - Leadership Thank You Letter sb4 Signatures: Dispatcher [employer] Alyx Gregory RN RN iw Nieto, Roman, MD MD rn Botello, Elizabeth eb Brown, Sophia PA-C PA-Andrzej sb4 Corrections: (The following items were deleted from the chart) 07/29 17:57 17:23 sb4 eb
[2024-07-29] MEDS ORDERED: GLUCAGON 1 MG/VIAL IM PRN (17:42)
[2024-07-29] MEDS ORDERED: D10W 125 ML IV PRN (17:42)
[2024-07-29] MEDS ORDERED: ONDANSETRON 4 MG/2 ML VIAL IV PRN (17:42)
[2024-07-29 17:47] LABS: Platelet Estimate ADEQ; White Blood Cell Scan OK (OK)
[2024-07-29 17:48] LABS: Blood Morphology Comment NOT SEEN (NOT SEEN)
--- NOTE | 2024-07-29 17:56 | P.HP ---
Certification for Inpatient Patient admitted to: Inpatient With expected LOS: >2 Midnights Practitioner: I am a practitioner with admitting privileges, knowledge of patient current condition, hospital course, and medical plan of care. Services: Services provided to patient in accordance with Admission requirements found in Title 42 Section 412.3 of the Code of Federal Regulations Patient History Date of Service: 07/29/24 Reason for admission: Abdominal pain History of Present Illness: 54-year-old gentleman with a history of hypertension, diabetes, cauda equina syndrome, BPH presented to the emergency department with a complaint of sudden onset abdominal pain since last night. Patient reported severe pain located in the right lower quad, no associated fever, denies any vomiting. Pain became progressively worse so patient presented to the ED. Patient was evaluated in the ED and CT scan of the abdomen suggest acute appendicitis. Patient also has severe leukocytosis. Patient meets criteria for sepsis with tachycardia and leukocytosis, lactic acidosis. General surgery Dr. Canela contacted. Patient is hospitalized for further management. Allergies bee venom protein (honey bee) Allergy (Verified 04/01/23 08:41) Anaphylaxis Home Medications: Lisinopril/Hydrochlorothiazide [Lisinopril-Hctz 20-12.5 mg Tab] 1 tab PO DAILY 11/08/18 Aspirin Chewable [Aspirin Chewable*] 81 mg PO DAILY 05/08/19 methocarbamoL [Methocarbamol] 750 mg PO QID 05/08/19 Gabapentin 300 mg PO TID 03/04/21 Metoprolol Succinate [Toprol Xl*] 50 mg PO DAILY 11/09/21 Atorvastatin Calcium [Lipitor*] 10 mg PO BEDTIME 12/22/22 Docusate [Colace Cap*] 100 mg PO TID 12/22/22 Famotidine [Pepcid*] 20 mg PO BID 12/22/22 Fenofibrate [Tricor*] 48 mg PO DAILY 12/22/22 Hydrocodone 5/APAP 325 [[place]on 5/325*] 1 tab PO Q6H PRN 12/22/22 Senosides [Senokot*] 2 tab PO BID 12/22/22 Glucerna Shake [Glucerna*] 237 ml PO BID can 12/31/22 Glycerin Adult Suppos [Sani-Supp*] 1 supp AR DAILY PRN supp 12/31/22 Insulin Glargine,Hum.rec.anlog [Semglee] 11 unit SQ DAILY ml 12/31/22 Magnesium Glycinate 100 mg PO DAILY #30 12/31/22 Tamsulosin [Flomax*] 1 tab PO BEDTIME #30 cap 12/31/22 Insulin Regular, Human [Humulin R U-500 Kwikpen] 500 unit SQ 03/21/23 Meloxicam 03/21/23 Metformin ER [Glucophage ER] 1,000 mg PO DAILY 03/21/23 icosapent ethyL [Vascepa 1 gm Cap] 1 gm PO 03/21/23 - Past Medical/Surgical History Diabetic: Yes -: Anemia -: Hyperlipidemia -: HTN -: Insulin-dependent diabetes -: GERD -: Neuropathy -: Obesity -: L knee surgery -: bilateral toe bunion removal Psychosocial/ Personal History: Patient is employed, lives at home with his family - Family History Father -: Heart disease Mother -: Liver disease, Other (see notes) Notes: liver cirrhosis. hepatitis - Social History Alcohol use: No CD- Drugs: No Caffeine use: Yes Place of Residence: Home Review of Systems Other: Patient denies any fever, no headache, no diarrhea. He denies any chest pain or shortness of breath Except as documented, other systems reviewed and negative. Physical Examination - Physical Exam General: Alert, In no apparent distress, Oriented x3, Obese HEENT: Mucous membr. moist/pink, Sclerae nonicteric Neck: Supple, JVD not distended Respiratory: Clear to auscultation bilaterally, Normal air movement Cardiovascular: No edema, Regular rate/rhythm, Normal S1 S2 Gastrointestinal: Normal bowel sounds, Non-distended, Tenderness (Right lower quadrant) Musculoskeletal: No swelling, No tenderness Integumentary: No rashes, No cyanosis Neurological: Normal speech, Normal strength at 5/5 x4 extr, Cranial nerves 3-12 intact Lymphatics: No axilla or inguinal lymphadenopathy - Studies Laboratory Data (last 24 hrs) 07/29/24 07/29/24 15:12 15:12 WBC 19.10 H Hgb 14.2 Hct 42.7 Plt Count 180 Sodium 138 Potassium 4.0 BUN 30 H Creatinine 1.41 H Glucose 206 H Total Bilirubin 1.0 AST 38 H ALT 50 Alkaline Phosphatase 72 Lipase 20 Assessment and Plan - Problems (Diagnosis) (1) Acute appendicitis Current Visit: Yes Status: Acute (2) Sepsis Current Visit: Yes Status: Acute (3) Type 2 diabetes mellitus Current Visit: Yes Status: Acute (4) Hypertension Current Visit: No Status: Chronic (5) Morbid obesity with BMI of 40.0-44.9, adult Current Visit: No Status: Chronic - Plan Sepsis Acute appendicitis Admit patient to the medical floor Patient given 1 g of IV Zosyn in the ED Continue IV Zosyn Lactate is pending IV hydration General Surgery Dr. Canela is aware and planning surgery. No active cardiac issue. Patient with sepsis secondary to acute appendicitis. No respiratory issues, good performance status. He is low to risk for surgery. Follow blood cultures. Morphine IV as needed for pain Type 2 diabetes Insulin sliding scale for glucose management. BPH Continue tamsulosin. Chronic back pain History of cauda equina syndrome Resume home dose gabapentin IV morphine as needed Hold all NSAIDs. DVT prophylaxis: No anticoagulation due to impending surgery Advanced directive: Full code - Advance Directives Does patient have a Living Will: No Does patient have a Durable POA for Healthcare: No
[2024-07-29 18:08] LABS: PT Prothrombin Time 12.9 SECONDS (9.4-12.5); PTT, Activated Partial Thromb 28.1 SECONDS (24.3-36.9); Protime INR 1.23
[2024-07-29 19:31] VITALS: BMI 36.2
[2024-07-29] MEDS: NA CHLORIDE 0.9% 1,000 ML IV SCH (20:26)
[2024-07-29] MEDS: MORPHINE 2 MG/ML SYR IV PRN (20:26)
[2024-07-29] MEDS ORDERED: SUCCINYLCHOLINE 20 MG/ML (10 ML) IV ONE (21:53)
[2024-07-29] MEDS ORDERED: FENTANYL CITR 250 MCG/5 ML ONE (22:01)
[2024-07-29] MEDS ORDERED: propofoL 200 MG/20 ML VIAL IV ONE (22:01)
[2024-07-29] MEDS ORDERED: ROCURONIUM 50 MG/5 ML VIAL IV ONE ×2 (22:01→23:09)
--- NOTE | 2024-07-29 22:30 | P.CNS ---
Date of Consult: 07/29/24
[2024-07-29] MEDS: Ringers Lactate 1,000 ML IV ONE (23:02)
[2024-07-29] MEDS ORDERED: NEOSTIGMINE 1 MG/ML -10 ML VIAL ONE (23:50)
[2024-07-29] MEDS ORDERED: GLYCOPYRROLATE 0.2 MG/ML SYR ONE (23:50)
--- NOTE | 2024-07-30 00:28 | P.OP ---
Preoperative diagnosis: Acute appendicitis Postoperative diagnosis: acute suppurative appendicitis Primary procedure: Laparoscopic appendectomy Anesthesia: General Estimated blood loss: Less than 10 cc Specimen: 1 appendix Operative Technique: The patient brought the operating room and placed supine on the table. After the induction of adequate general endotracheal anesthesia, there the abdomen was prepped with a DuraPrep solution, he was draped in the usual aseptic manner. Attention was turned towards the umbilicus. After injecting the subumbilical area with 0.25% Marcaine a skin incision was made. This was brought down through the skin and subcutaneous tissue. The Visiport was now used to enter the peritoneal cavity and created pneumoperitoneum to approximately 12 mmHg. Under direct vision a 5 mm trocar was placed in the lower midline just above the pubic symphysis, and another on the right lateral side of the abdomen. The patient was now placed in marked Trendelenburg. The table was turned towards the left. We could visualize the right lower quadrant of the abdomen. There was an obvious inflammatory process around the cecum. This was covered with inflamed omentum. The omentum was gently reflected off of the cecum and worked away from our operative field. The small bowel was noted to be inflamed in this area. We pulled it out of the way and moved it out of the operative field. We finally found a large amount of fat that was consistent with that 1 would see around the appendix. There was some fibrinous exudative suppurative material around it. Gentle dissection allowed us to expose this and confirm that it was indeed the appendix. We traced it up towards the base of the cecum. There were marked Jose De Jesus's bands that were holding the cecum to the right side of the pelvic sidewall. These were taken down using Metzenbaums, judicious electrocautery, and blunt dissection. We were finally able to reflect the cecum towards the midline. This allowed us to identify the base of the appendix at its junction with the cecum. The mesentery of the appendix was now taken down using a vascular load of the stapler. We did this by converting the 10 trocar to a 12, placing the mechanism inside the peritoneal cavity. It was approximated across the mesentery. The instrument was closed. It was held under pressure for 30 seconds and then fired. On releasing it we had a good hemostatic suture line. This also freed up the appendix even more so once again we can follow-up and confirmed the base of the appendix with the cecum. Some gentle adhesions were taken down using electrocautery and blunt dissection. The base of the appendix now having been identified, a 45 regular load was placed across the base of the appendix. The instrument was closed. After holding it for 1 minute we reset it and the instrument once again was fired. The appendix having been detached was now placed to an Endo Close and brought up to the umbilical trocar site. This patient has a very thick abdominal wall, it was very difficult to try to get this appendix out through this small incision. We opened the fascia using the Metzenbaum scissors. After removing the Endo catch from the peritoneal cavity the peritoneal and fascial defect was approximated using the Endo Close, and 3 absorbable sutures. Having obtained an airtight seal the peritoneal cavity was once again inspected. The right lower quadrant where the appendix had leg was gently irrigated with a saline solution and the effluent aspirated. The area was checked for hemostasis. The cecum was now returned to its normal anatomical position. The cecum was then covered with the omentum. The patient having been at this point placed back into the neutral position on the OR table. The rest of the abdomen was inspected to ensure adequate hemostasis. This having been done the umbilical sutures were tied, the pneumoperitoneum collapsed the trocars removed, and sudarshan applied to the skin. At the end of the procedure the patient was in a stable condition was sent to the recovery room. Needle sponge instrument count were correct. No drains were placed. Transferred to: Recovery Room Condition: Good
[2024-07-30] MEDS ORDERED: ONDANSETRON 4 MG/2 ML VIAL IV PRN (00:41)
[2024-07-30] MEDS: NA CHLORIDE 0.9% 1,000 ML ONE (01:03)
[2024-07-30] MEDS: PIPER TAZO 3.375 GM in NA CHLORIDE 0.9% 100 ML IV SCH (01:23)
[2024-07-30 06:16] LABS: Absolute Lymphocytes (CBC) 0.9 K/uL (0.7-4.9); Absolute Monocytes 0.4 K/uL (0.1-1.3); Absolute Neutrophil 10.7 K/uL (1.8-8.0); Basophils % 0.1 % (0-1.3); Eosinophils % 0.3 % (0-4.4); Hematocrit 33.9 % (39.6-49.0); Hemoglobin 11.1 g/dL (13.6-17.9); Lymphocytes % 7.7 % (15.3-44.8); MCH 28.5 pg (27.0-35.0); MCHC 32.8 g/dL (32.0-36.0); MCV 86.8 fL (80-100); Monocytes % 3.6 % (3.3-12.3); Neutrophils % 88.3 % (41.7-73.7); Platelets 169 thou/uL (152-406); Red Cell Distribution Width 14.3 % (12.1-15.2)
[2024-07-30 06:30] LABS: Magnesium 2.5 mg/dL (1.6-2.4); Phosphorus 3.6 mg/dL (2.5-4.9)
[2024-07-30] MEDS: TAMSULOSIN 0.4 MG SR CAP PO SCH (08:44)
[2024-07-30] MEDS: GABAPENTIN 300 MG CAP PO SCH (08:44)
[2024-07-30] MEDS: SIMETHICONE 80 MG CHEWABLE TAB PO PRN (14:36)
[2024-07-30] MEDS: MAGNESIUM CITRATE 300 ML BOT PO SCH (18:00)
--- NOTE | 2024-07-30 18:30 | P.PN ---
Subjective Date of Service: 07/30/24 Chief Complaint: Abdominal pain Patient complaining of uncontrolled abdominal pain. No recorded fever. Status post lap cholecystectomy last night. Physical Examination - Vital Signs Temperature: 98.3 F Blood Pressure: 114/53 Pulse: 84 Respirations: 18 Pulse Ox (%): 98 Assessment And Plan - Current Problems (Diagnosis) (1) Acute appendicitis Current Visit: Yes Status: Acute (2) Sepsis Current Visit: Yes Status: Acute (3) Type 2 diabetes mellitus Current Visit: Yes Status: Acute (4) Hypertension Current Visit: No Status: Chronic (5) Morbid obesity with BMI of 40.0-44.9, adult Current Visit: No Status: Chronic - Plan Physical examination General: Alert and oriented x3, NAD, HEENT: Conjunctiva not pale, anicteric sclera Neck: Supple, no elevated JVD Heart: Heart sounds 1 and 2 normal, regular rhythm, normal rate, no pedal edema Lungs: Clear to auscultation bilaterally, adequate breath sounds bilaterally, no rhonchi or crackles. Abdomen: Soft, nondistended, moderate tenderness-diffuse, normal bowel sounds. Clean trocar wounds. Extremities: No tenderness, no deformity Skin: Normal skin turgor, no rash, no nodules or ulcers. Neuro: No focal motor deficit. Normal speech. Psychiatry: Normal mood, no agitation. Sepsis Acute appendicitis Status post lap appendectomy. Postop diagnosis-suppurative acute appendicitis. Continue IV Zosyn Titrate IV opioids for pain control General Surgery Dr. Canela is following Blood cultures: No growth to date. Type 2 diabetes Insulin sliding scale for glucose management. BPH Continue tamsulosin. Chronic back pain History of cauda equina syndrome Continue home dose gabapentin IV morphine as needed Hold all NSAIDs. DVT prophylaxis: Lovenox Advanced directive: Full code Disposition: Possible discharge in a.m.
[2024-07-30] MEDS: MORPHINE 4 MG/ML SYR IV PRN (21:45)
[2024-07-31 06:26] LABS: Absolute Eosinophils 0.2 K/uL (0-0.5); Absolute Lymphocytes (CBC) 1.2 K/uL (0.7-4.9); Absolute Monocytes 0.4 K/uL (0.1-1.3); Basophils % 0.5 % (0-1.3); Eosinophils % 2.3 % (0-4.4); Hematocrit 32.8 % (39.6-49.0); Hemoglobin 11.1 g/dL (13.6-17.9); Lymphocytes % 11.8 % (15.3-44.8); MCH 28.7 pg (27.0-35.0); MCHC 33.8 g/dL (32.0-36.0); MCV 84.9 fL (80-100); MPV 7.9 fL (7.6-11.3); Neutrophils % 81.4 % (41.7-73.7); Platelets 146 thou/uL (152-406); RBC Red Blood Cell Count 3.86 M/uL (4.33-5.43); Red Cell Distribution Width 14.4 % (12.1-15.2)
[2024-07-31 06:43] LABS: Magnesium 2.4 mg/dL (1.6-2.4)
[2024-07-31] MEDS: HYDROCODONE/APAP 7.5/325 MG TAB PO PRN (11:15)
[2024-07-31 11:46] VITALS: O2SAT 95
--- NOTE | 2024-07-31 12:12 | P.PN ---
Date of Service: 07/31/24 Subjective: feeling better today abdominal pain improving tolerating diet without issues afebrile ROS: 10 point ROS as noted above, otherwise negative Physical Exam: GEN: Alert, oriented, NAD CV: Regular rate and rhythm, no edema Pulm: Nonlabored respirations on room air, clear bilaterally ABD: soft, nontender, nondistended Integumentary: No rashes Neuro: Normal speech, normal affect Problem List: Acute suppurative appendicitis s/p lap appy (07/30) IDDM2 BPH Chronic back pain History of cauda equina syndrome Acute suppurative appendicitis s/p lap appy (07/30) CT abdomen (07/29): enlarged appendix consistent with acute appendicitis Dr. Canela, general surgeon is following s/p lap appy (07/30) Blood cx (07/29): NGTD continue empiric zosyn (07/30-); deescalate to oral augmentin on discharge diet as tolerated pain control, antiemetics IDDM2 accu-cheks, SSI confirm home insulin BPH Chronic back pain History of cauda equina syndrome resume home meds as appropriate resume home flomax VTE: Code: Full Dispo: Home Time Spent Managing Pts Care (In Minutes): 55
[2024-07-31 13:34] VITALS: TEMP 98.2
--- NOTE | 2024-07-31 15:05 | P.DS ---
Admission Date: 07/29/24 Discharge Date: 07/31/24 Disposition: ROUTINE DISCHARGE Discharge Condition: FAIR Reason for Admission: Abdominal pain Consultations: General Surgery - Dr. Canela Brief History of Present Illness: 54yo M, PMH: hypertension, diabetes, cauda equina syndrome, BPH Patient presented to the emergency department with a complaint of sudden onset abdominal pain since last night. Patient reported severe pain located in the right lower quad, no associated fever, denies any vomiting. Pain became progressively worse so patient presented to the ED. Patient was evaluated in the ED and CT scan of the abdomen suggest acute appendicitis. Patient also has severe leukocytosis. Patient meets criteria for sepsis with tachycardia and leukocytosis, lactic acidosis. General surgery Dr. Canela contacted. Patient is hospitalized for further management. Hospital Course: Problem List: Acute suppurative appendicitis s/p lap appy (07/30) IDDM2 BPH Chronic back pain History of cauda equina syndrome Physician discharge instructions: Patient presented with worsening abdominal pain secondary to acute suppurative appendicitis. CT abdomen/pelvis on admission noted an enlarged appendix consistent with acute appendicitis. Patient was evaluated by Dr. Canela, general surgeon and underwent lap appendectomy on 07/30. Patient was started on IV Zosyn and had improvement of his symptoms. Patient is to complete 1 week of oral Augmentin on discharge. Blood cultures have been without growth since 07/29. Patient was feeling better, afebrile without leukocytosis > 24 hours, and was deemed stable for discharge. Follow up with Dr. Canela in office in ~1 week for further management. Advised patient to continue low fat, soft food diet for next few days. Can slowly ease back into regular diet over the next week. New medications Augmentin 875 twice daily x 7 days [place]. 15 pills as needed for pain Follow up: PCP 3-[address] Canela in office in 1 week Please call to schedule / confirm appointments Physical Exam: GEN: Alert, oriented, NAD CV: Regular rate and rhythm, no edema Pulm: Nonlabored respirations on room air, clear bilaterally ABD: soft, nontender; surgical dressing in place Neuro: Normal speech, normal affect Vital Signs/Physical Exam: Temp Pulse Resp BP Pulse Ox 98.2 F 86 16 160/78 H 95 07/31/24 12:00 07/31/24 12:00 07/31/24 12:15 07/31/24 12:00 07/31/24 12:15 Laboratory Data at Discharge: WBC 9.90 thou/uL (4.3-10.9) 07/31/24 06:16 Hgb 11.1 g/dL (13.6-17.9) L 07/31/24 06:16 Hct 32.8 % (39.6-49.0) L 07/31/24 06:16 Plt Count 146 thou/uL (152-406) L 07/31/24 06:16 PT 12.9 SECONDS (9.4-12.5) H 07/29/24 17:25 INR 1.23 07/29/24 17:25 APTT 28.1 SECONDS (24.3-36.9) 07/29/24 17:25 Sodium 138 mEq/L (136-145) 07/31/24 06:16 Potassium 4.0 mEq/L (3.5-5.1) 07/31/24 06:16 BUN 21 mg/dL (7-18) H 07/31/24 06:16 Creatinine 1.16 mg/dL (0.70-1.30) 07/31/24 06:16 Glucose 114 mg/dL (74-106) H 07/31/24 06:16 Phosphorus 3.6 mg/dL (2.5-4.9) 07/30/24 06:00 Magnesium 2.4 mg/dL (1.6-2.4) 07/31/24 06:16 Total Bilirubin 1.0 mg/dL (0.2-1.0) 07/29/24 15:12 AST 38 U/L (15-37) H 07/29/24 15:12 ALT 50 U/L (16-61) 07/29/24 15:12 Alkaline Phosphatase 72 U/L (45-117) 07/29/24 15:12 Lipase 20 U/L (13-75) 07/29/24 15:12 Home Medications: Lisinopril/Hydrochlorothiazide [Lisinopril-Hctz 20-12.5 mg Tab] 1 tab PO BID Aspirin Chewable [Aspirin Chewable*] 81 mg PO DAILY 05/08/19 Gabapentin 600 mg PO BID 03/04/21 Metoprolol Succinate [Toprol Xl*] 50 mg PO DAILY 11/09/21 Fenofibrate [Tricor*] 54 mg PO DAILY 12/22/22 Insulin Regular, Human [Humulin R U-500 Kwikpen] 500 unit SQ TID 03/21/23 Metformin ER [Glucophage ER*] 1,000 mg PO BID 03/21/23 icosapent ethyL [Vascepa 1 gm Cap] 1 gm PO BID 03/21/23 Amox/Clavulanate [Augmentin 875-125 Tab] 1 each PO BID #14 tab 07/30/24 Aspirin 1 tab PO DAILY 07/30/24 Atorvastatin Calcium [Lipitor*] 20 mg PO BEDTIME 07/30/24 Diclofenac Na [Voltaren D.r*] 1 tab PO DAILY 07/30/24 Empagliflozin [Jardiance] 1 tab PO DAILY 07/30/24 Magnesium Oxide [Magnesium] 1 tab PO BID 07/30/24 Semaglutide [Ozempic] 1 mg SQ EVERY 7TH DAY 07/30/24 Tamsulosin [Flomax*] 1 cap PO BID 07/30/24 glucosamine HCL [Glucosamine HCl] 1 tab PO DAILY 07/30/24 Hydrocodone 7.5/APAP 325 [[place] 7.5/325 mg*] 1 tab PO Q6H PRN #15 tab 07/31/24 New Medications: Amox/Clavulanate [Augmentin 875-125 Tab] 1 each PO BID #14 tab Hydrocodone 7.5/APAP 325 [[place] 7.5/325 mg*] 1 tab PO Q6H PRN #15 tab PRN Reason: Pain Scale 8-10 (Severe) Physician Discharge Instructions: Physician discharge instructions: Patient presented with worsening abdominal pain secondary to acute suppurative appendicitis. CT abdomen/pelvis on admission noted an enlarged appendix consistent with acute appendicitis. Patient was evaluated by Dr. Canela, general surgeon and underwent lap appendectomy on 07/30. Patient was started on IV Zosyn and had improvement of his symptoms. Patient is to complete 1 week of oral Augmentin on discharge. Blood cultures have been without growth since 07/29. Patient was feeling better, afebrile without leukocytosis > 24 hours, and was deemed stable for discharge. Follow up with Dr. Canela in office in ~1 week for further management. Advised patient to continue low fat, soft food diet for next few days. Can slowly ease back into regular diet over the next week. New medications Augmentin 875 twice daily x 7 days [place]. 15 pills as needed for pain Follow up: PCP 3-[address] Canela in office in 1 week Please call to schedule / confirm appointments Followup: Javier Canela MD [ACTIVE - CAN ADMIT] - 1 Week Ross Dumont FNP [Primary Care Provider] - 1-2 Weeks Time spent managing pt's care (in minutes): 45
[2024-07-31 16:46] VITALS: BP 140/59
== END 2024-07-31 16:44 | disposition home or self-care (01) | DRG 853 ==
LOC: ER 14:11 → ERHOLD 17:40 → 4TH 18:02
PROVIDERS: ADMIT Internal Medicine; ATTEND Hospitalist
PROC: 0DTJ4ZZ Resection of Appendix, Percutaneous Endoscopic Approach (ICD-10-PCS; principal; 2024-07-30)
DX: A41.9 Sepsis, unspecified organism (principal); K35.33 Acute appendicitis with perforation, localized peritonitis, and gangrene, with abscess; E11.40 Type 2 diabetes mellitus with diabetic neuropathy, unspecified; Z79.4 Long term (current) use of insulin; N40.0 Benign prostatic hyperplasia without lower urinary tract symptoms; D72.829 Elevated white blood cell count, unspecified; D64.9 Anemia, unspecified; K21.9 Gastro-esophageal reflux disease without esophagitis; E66.01 Morbid (severe) obesity due to excess calories; Z68.36 Body mass index [BMI] 36.0-36.9, adult; G89.4 Chronic pain syndrome; M54.9 Dorsalgia, unspecified
CPT/HCPCS: 36415; 74177; 80048; 80053; 82947; 83605; 83690; 83735; 84100; 85025; 85610; 85730; 87040; 88304; 94010; 94760; 96361; 96365; 96375; 99284; J2270; J2405; J2543; J2704; J2710; J3010; J7030; J7120